=== PATIENT | female | born 1935 | race Caucasian/White ===

== ENCOUNTER 2018-10-13 10:58 | Inpatient (IN) | payer OTHER ==
[2018-10-13] MEDS ORDERED: ACETAMINOPHEN 1000 MG/100 ML VIAL (NON FORMULARY) IVPB ONE (12:33)
[2018-10-13] MEDS ORDERED: ACETAMINOPHEN INJECTION 100 ML IVPB ONE (12:51)
[2018-10-13] MEDS ORDERED: VANCOMYCIN 1 GM in D5W (PRE-DOCKED) 1,000 MG/250 ML IVPB ONE (12:59)
--- NOTE | 2018-10-13 13:03 | PDOC ---
History of Present Illness - General Chief Complaint: Edema Stated Complaint: FALL / LEG PAIN Time Seen by Provider: 10/13/18 12:08 History Source: Patient Exam Limitations: No Limitations - History of Present Illness Initial Comments: 10/13/18 13:00 Pt is an 83yo F with PMH of Afib (on Plavix), Scleroderma, HTN, HLD presenting to ED with complaints of worsening R calf pain. Pt has been in wound care clinic for 6 months. She was started on Bactrim 4 days ago but it has not been helping. She was told to come to the emergency room if pain worsened. Pt says the pain is in the posterior R calf where she has the ulcerations. She endorses weakness. Denies fever, chills, numbness/tingling, cough, sob, chest pain, n/v/d , abdominal pain. She says the pain has gotten to the point where it is difficult for her to stand. Denies recent travel, clotting disorders. PMD: Schirripa Wound: Chafizadeh PMH: see hpi PSH: appendectomy, L 5th toe amputation meds: plavix, metoprolol, pravastatin Allergies: Cipro (erythroderma), PCN (swelling), ASA (swelling) Social: denies Past History - Past Medical History Allergies/Adverse Reactions: Allergies Allergy/AdvReac Type Severity Reaction Status Date / Time aspirin Allergy Swelling Verified 10/13/18 11:03 cephalexin [From Keflex] Allergy Verified 10/13/18 11:03 ciprofloxacin [From Cipro] Allergy Swelling Verified 10/13/18 11:03 ciprofloxacin HCl Allergy Swelling Verified 10/13/18 11:03 [From Cipro] Penicillins Allergy Swelling Verified 10/13/18 11:03 Quinolones Allergy Verified 10/13/18 11:03 Home Medications: Ambulatory Orders Acetaminophen [Tylenol .Regular Strength -] 650 mg PO Q6H PRN #0 tablet Cholecalciferol (Vitamin D3) [Vitamin D3 -] 2,000 unit PO DAILY #0 tab 07/13/13 Clopidogrel Bisulfate [Plavix -] 75 mg PO DAILY #0 tablet 07/13/13 Metoprolol Succinate [Toprol XL -] 25 mg PO DAILY #0 tab.sr.24h 07/13/13 Sodium Chloride Tablet - 1 gm PO DAILY #0 tablet 07/13/13 Valsartan [Diovan] 320 mg PO DAILY #0 tablet 07/13/13 Pravastatin Sodium [Pravachol (Nf)] 40 mg PO HS 05/04/14 Gabapentin 2 cap PO HS 05/18/14 Cardiac Disorders: Yes (A FIB) COPD: No HTN: Yes Hypercholesterolemia: Yes - Surgical History Abdominal Surgery: Yes Appendectomy: Yes Neurologic Surgery: No Orthopedic Surgery: Yes (L. Pinky toe amputation) - Immunization History Immunization Up to Date: Yes - Suicide/Smoking/Psychosocial Hx Smoking Status: No Smoking History: Never smoked Have you smoked in the past 12 months: No Number of Cigarettes Smoked Daily: 0 Hx Alcohol Use: No Drug/Substance Use Hx: No Substance Use Type: Alcohol Hx Substance Use Treatment: No Review of Systems - Review of Systems Constitutional: Yes: Weakness. No: Chills, Fever HEENTM: No: Symptoms Reported Respiratory: No: Cough, Shortness of Breath Cardiac (ROS): No: Chest Pain, Lightheadedness, Palpitations, Syncope ABD/GI: No: Constipated, Diarrhea, Nausea, Vomiting, Abdominal cramping : No: Symptoms Reported Musculoskeletal: Yes: Muscle Pain (R calf pain) Integumentary: Yes: See HPI, Erythema, Lesions. No: Bruising, Pruritus Neurological: No: Headache, Numbness, Tingling *Physical Exam - Vital Signs Last Vital Signs Temp Pulse Resp BP Pulse Ox 97.7 F 16 L 17 127/47 L 99 10/13/18 11:04 10/13/18 11:04 10/13/18 11:04 10/13/18 11:04 10/13/18 11:04 - Physical Exam General Appearance: Yes: Appropriately Dressed, Thin. No: Apparent Distress HEENT: positive: EOMI, JACOB Neck: positive: Trachea midline, Supple. negative: Lymphadenopathy (R), Lymphadenopathy (L) Respiratory/Chest: positive: Lungs Clear, Normal Breath Sounds. negative: Crackles, Rales, Rhonchi, Stridor Cardiovascular: positive: Regular Rhythm, Regular Rate, S1, S2. negative: Edema , JVD, Murmur Vascular Pulses: Carotid (R): 2+, Carotid (L): 2+, Dorsalis-Pedis (R): 1+, Doralis-Pedis (L): 1+ Gastrointestinal/Abdominal: positive: Normal Bowel Sounds, Soft. negative: Tender Musculoskeletal: positive: Other (R calf tendnerness, sclerotic changes in hands ). negative: CVA Tenderness Extremity: positive: Normal Capillary Refill, Normal Range of Motion, Calf Tenderness (R calf tendnerness), Erythema. negative: Coldness, Cyanosis, Pedal Edema, Swelling Integumentary: positive: Normal Color, Dry, Warm, Erythema (R calf) Neurologic: positive: water fitness instructor II-XII NML intact, Fully Oriented, Alert, Normal Mood/ Affect, Normal Response, Motor Strength 5/5 Moderate Sedation - Procedure Monitoring Vital Signs: Procedure Monitoring Vital Signs Temperature 97.7 F 10/13/18 11:04 Pulse Rate 16 L 10/13/18 11:04 Respiratory Rate 17 10/13/18 11:04 Blood Pressure 127/47 L 10/13/18 11:04 O2 Sat by Pulse Oximetry (%) 99 10/13/18 11:04 ED Treatment Course - LABORATORY CBC & Chemistry Diagram: 10/13/18 12:45 10/13/18 12:45 - RADIOLOGY Radiology Studies Ordered: Category Date Time Status DUPLEX VASCUL US-1 LEG [US] Stat Ultrasound 10/13/18 12:33 Ordered - Medications Given in the ED: ED Medications Discontinued Medications Generic Name Dose Route Start Last Admin Trade Name Ethan PRN Reason Stop Dose Admin Acetaminophen 1,000 mg 10/13/18 12:33 10/13/18 12:52 Ofirmev Injection - IVPB 10/13/18 12:34 1,000 mg ONCE ONE Administration Medical Decision Making - Medical Decision Making 10/13/18 13:05 Pt is an 83yo F with PMH of Afib (on Plavix), Scleroderma, HTN, HLD presenting to ED with complaints of worsening R calf pain. Pt has been in wound care clinic for 6 months. She was started on Bactrim 4 days ago but it has not been helping. She was told to come to the emergency room if pain worsened. Pt says the pain is in the posterior R calf where she has the ulcerations. She endorses weakness. Denies fever, chills, numbness/tingling, cough, sob, chest pain, n/v/d , abdominal pain. She says the pain has gotten to the point where it is difficult for her to stand. Denies recent travel, clotting disorders. Vitals: HR 80s, afebrile, wnl PE: R calf erythema, tenderness, mucopurulent drainage. Full ROM Ddx includes but not limited to cellulitis, dvt, allergic reaction, necrotizing fascitis -cbc, cmp, lac, coags, blood cultures, ua, ucx -iv tylenol, vanc -doppler rle, ekg 10/13/18 13:30 cbc and coags wnl. chem pending, doppler pendig EKG- no shalini or depressions 10/13/18 15:32 labs wnl. Negative for DVT. wound culture requested by admitting team. Pt admitted med/surg *DC/Admit/Observation/Transfer Diagnosis at time of Disposition: Cellulitis Qualifiers: Site of cellulitis: extremity Site of cellulitis of extremity: lower extremity Laterality: right Qualified Code(s): L03.115 - Cellulitis of right lower limb - Discharge Dispostion Condition at time of disposition: Good Decision to Admit order: Yes - Referrals - Patient Instructions - Post Discharge Activity
[2018-10-13 13:04] LABS: BASO % 0.2 % (0-2.0); EOS % 0.2 % (0-4.5); HEMATOCRIT 37.8 % (32.4-45.2); HEMOGLOBIN 13.1 GM/dL (10.7-15.3); LYMPH % 10.3 % (8-40); MCHC 34.6 g/dl (32.0-36.0); MEAN CELL VOLUME 92.4 fl (80-96); MEAN PLT VOLUME 8.7 fl (7.5-11.1); MONO % 6.9 % (3.8-10.2); NEUT % 82.4 % (42.8-82.8); PLATELET COUNT 297 K/MM3 (134-434); RBC 4.09 M/mm3 (3.60-5.2); RDW 14.6 % (11.6-15.6); WHITE BLOOD COUNT 9.2 K/mm3 (4.0-10.0)
[2018-10-13 13:24] LABS: INR 1.07 (0.83-1.09); PROTHROMBIN TIME (PATIENT) 12.6 SEC (9.7-13.0)
[2018-10-13 13:27] LABS: ACTIVATED PTT 23.7 SECONDS (25.2-36.5)
[2018-10-13 13:37] LABS: ALBUMIN 3.3 g/dl (3.4-5.0); ALK PHOS 58 U/L (45-117); ANION GAP 6 MMOL/L (8-16); BILIRUBIN,TOTAL 0.4 mg/dL (0.2-1); BLOOD UREA NITROGEN 21 mg/dL (7-18); CALCIUM 9.2 mg/dL (8.5-10.1); CHLORIDE 98 mmol/L (98-107); CO2 28 mmol/L (21-32); CREATININE 1.1 mg/dL (0.55-1.3); GLUCOSE,RANDOM 90 mg/dL (74-106); POTASSIUM 4.4 mmol/L (3.5-5.1); SGOT/AST 13 U/L (15-37); SGPT/ALT 12 U/L (13-61); SODIUM 132 mmol/L (136-145)
[2018-10-13] MEDS ORDERED: VANCOMYCIN 1 GRAM (PRE-DOCKED) 1,000 MG/250 ML BAG IVPB ONE (13:43)
--- NOTE | 2018-10-13 14:16 | PDOC ---
Attending Attestation - Resident Resident Name: Felicia Greenwood - ED Attending Attestation I have performed the following: I have examined & evaluated the patient, The case was reviewed & discussed with the resident, I agree w/resident's findings & plan, Exceptions are as noted - HPI HPI: 10/13/18 14:10 The patient is a 83 year old female, with a significant past medical history of HTN, Hypercholesterolemia, Atrial Fibrillation (on Plavix), Scleroderma, and Raynaud's Syndrome, who presents to the emergency department with, R calf wounds with pain. Patient has been going to wound care with Dr. Hernández/ over the past 6 months and was prescribed Bactrim 4 days ago ( compliant with antibiotics) with minimal improvement and persistent pain. Patient notes a similar episode in 2012 a which time she was admitted for IV antibiotics. Patient was advised by her doctors to report to the ED if her symptoms worsened or persisted prompting her arrival to the ED. She denies recent fevers, chills, headache or dizziness. She denies recent nausea, vomit, diarrhea or constipation. She denies recent dysuria, frequency, urgency or hematuria. She denies recent chest pain or shortness of breath. Allergies: Aspirin, cephalexin, ciprofloxacin, penicillins, quinolones. Past surgical history: appendectomy. Social history: Nonsmoker. Denies EtOH use and recreational drug use. Primary Care Physician: Dr. Girard Wound Care: Dr. Hernández Interior Decorator Paperhanging: - Physicial Exam PE: 10/13/18 14:10 GENERAL: Awake, alert, and fully oriented, in no acute distress EYES: PERRLA, EOMI, sclera anicteric, conjunctiva clear ENT: Oropharynx clear without exudates. Moist mucosa NECK: Normal ROM, supple, no lymphadenopathy, JVD, or masses LUNGS: Breath sounds equal, clear to auscultation bilaterally. No wheezes, and no crackles HEART: Regular rate and rhythm, normal S1 and S2, no murmurs, rubs or gallops ABDOMEN: Soft, nontender, normoactive bowel sounds. No guarding, no rebound. No masses EXTREMITIES: Normal range of motion, no edema. +tenderness to light touch of lateral R calf NEUROLOGICAL: Normal speech, cranial nerves intact, equal strength and sensation b/l SKIN: +Large patch of erythema to the right lateral calf, mild induration with multiple superficial ulcers with mucopurulent discharge. - Medical Decision Making 10/13/18 14:16 83yo F presents to the ED for admission for cellulitis after failing outpt bactim abx. Pt has required Vancomycin in the past for cellulitis which we will order today. Plan for labs, admission.
--- NOTE | 2018-10-13 16:00 | PN ---
Teaching Attending Note Name of Resident: Zulma Sánchez ATTENDING PHYSICIAN STATEMENT I saw and evaluated the patient. I reviewed the resident's note and discussed the case with the resident. I agree with the resident's findings and plan as documented with exceptions below. PCP: Dr. Girard Pole Incisor Operator: Dr. Serrato SUBJECTIVE: 83 yof with PMhx of Scleroderma, Atrial fibrillation, not on AC but on plavix, raynaud's phenomenon, Chronic hyponatremia/SIADH, HTN, HLD, OA, recurrent stasis ulcer RLE since 02/2018 being followed at wound care (With Dr. Hernández and Dr. Austin), MRI has been having progressive right calf pain/redness, difficulty ambulating, was placed on bactrim 4 days ago but given worsening symptoms, came to the ED.Denies any fevers, chills. Positive yellowish foul swelling discharge from the calf wound. 12 point ROS done neg except above. OBJECTIVE: Vital Signs Period Temp Pulse Resp BP Sys/Stewart Pulse Ox Last 24 Hr 97.7 F-98.1 F 16-66 17-18 127-161/47-73 99-99 Intake & Output 10/10/18 10/11/18 10/12/18 10/13/18 23:59 23:59 23:59 23:59 Weight 120 lb GENERAL: Awake, alert, and fully oriented, in no acute distress. HEAD: Normal with no signs of trauma. EYES: Pupils equal, round and reactive to light, extraocular movements intact, sclera anicteric, conjunctiva clear. No lid lag. EARS, NOSE, THROAT: Ears normal, nares patent, oropharynx clear without exudates. Moist mucous membranes. NECK: Normal range of motion, supple, no JVD or masses LUNGS: Breath sounds equal, clear to auscultation bilaterally. No wheezes, and no crackles. No accessory muscle use. HEART: Regular rate and rhythm, normal S1 and S2 ABDOMEN: Soft, nontender, not distended, normoactive bowel sounds, no guarding, no rebound, no masses. MUSCULOSKELETAL: no spinal tenderness, bilateral hand arthritic deformities UPPER EXTREMITIES: 2+ pulses, warm, well-perfused. No cyanosis. No clubbing. No peripheral edema. LOWER EXTREMITIES: palpable DP pulse, faint, right calf, inudurated erythematous area extending from mid calf to above ankle, scattered indurated area, opening with purulent material expressed, tender on palpation and when attempting to express pus NEUROLOGICAL: AAOx3, facial symmetry, Cranial nerves II-XII intact. Normal speech. Gait no observed PSYCHIATRIC: Cooperative. Good eye contact. Appropriate mood and affect. SKIN: Warm, dry, normal turgor, no rashes or lesions noted, normal capillary refill. Home Medications Medication Instructions Recorded Acetaminophen [Tylenol .Regular 650 mg PO Q6H PRN #0 tablet 07/13/13 Strength -] Cholecalciferol (Vitamin D3) 2,000 unit PO DAILY #0 tab 07/13/13 [Vitamin D3 -] Clopidogrel Bisulfate [Plavix -] 75 mg PO DAILY #0 tablet 07/13/13 Metoprolol Succinate [Toprol XL -] 25 mg PO DAILY #0 tab.sr.24h 07/13/13 Sodium Chloride Tablet - 1 gm PO DAILY #0 tablet 07/13/13 Valsartan [Diovan] 320 mg PO DAILY #0 tablet 07/13/13 Pravastatin Sodium [Pravachol (Nf)] 40 mg PO HS 05/04/14 Gabapentin 2 cap PO HS 05/18/14 Active Medications Acetaminophen (Tylenol -) 650 mg PO Q6H PRN PRN Reason: FEVER Gabapentin (Neurontin -) 100 mg PO HS [facility] Metoprolol Succinate (Toprol Xl -) 25 mg PO DAILY [facility] Sodium Chloride (Sodium Chloride Tablet -) 1 gm PO DAILY [facility] Valsartan (Diovan -) 320 mg PO DAILY [facility] Laboratory Results - last 24 hr 10/13/18 10/13/18 10/13/18 12:45 12:45 12:45 WBC 9.2 RBC 4.09 Hgb 13.1 Hct 37.8 D MCV 92.4 MCH 32.0 MCHC 34.6 RDW 14.6 D Plt Count 297 MPV 8.7 Absolute Neuts (auto) 7.6 Neutrophils % 82.4 Lymphocytes % 10.3 Monocytes % 6.9 Eosinophils % 0.2 Basophils % 0.2 Nucleated RBC % 0 PT with INR 12.60 INR 1.07 PTT (Actin FS) 23.7 L Sodium 132 L Potassium 4.4 Chloride 98 Carbon Dioxide 28 Anion Gap 6 L BUN 21 H Creatinine 1.1 Creat Clearance w eGFR 47.32 Random Glucose 90 Lactic Acid Calcium 9.2 Total Bilirubin 0.4 AST 13 L ALT 12 L Alkaline Phosphatase 58 Total Protein 8.0 Albumin 3.3 L 10/13/18 12:45 WBC RBC Hgb Hct MCV MCH MCHC RDW Plt Count MPV Absolute Neuts (auto) Neutrophils % Lymphocytes % Monocytes % Eosinophils % Basophils % Nucleated RBC % PT with INR INR PTT (Actin FS) Sodium Potassium Chloride Carbon Dioxide Anion Gap BUN Creatinine Creat Clearance w eGFR Random Glucose Lactic Acid 1.4 Calcium Total Bilirubin AST ALT Alkaline Phosphatase Total Protein Albumin RLE Duplex results reviewed ASSESSMENT AND PLAN: 83 yof with PMhx of Scleroderma, Atrial fibrillation, not on AC but on plavix, raynaud's phenomenon, Chronic hyponatremia/SIADH, HTN, HLD, OA, recurrent stasis ulcer RLE since 02/2018 being followed at wound care (With Dr. Hernández and Dr. Austin) admitted with RLE wound cellulitis, suspected abscess -RLE wound cellulitis, suspected abscess, recurrent stasis ulcer RLE -MRI RLE with 5th toe OM (?Unclear management) -Scleroderma -Atrial fibrillation not on AC -Raynaud's phenomenon -Chronic hyponatremia/SIADH -HTN -HLD -OA Plan: Wound care. Dr. smith's consult, may need I&D. CT LE. Multiple allergies. Vancomycin. ID input Dr. Stoll. Blood cx sent. Hold plavix for now in case needs surgical drainage. Continue toprol/norvasc/NaCL tablets/statin. DVTPPX heparin Dispo pending clinical improvement. Needs IV antibiotics and possible surgical drainage. Plan discussed with patient, Dr. smith in detail, all questions answered. Total admit time 60 min.
[2018-10-13] MEDS ORDERED: ACETAMINOPHEN 325 MG TABLET (FP) PO PRN (16:09)
--- NOTE | 2018-10-13 16:26 | HP ---
CHIEF COMPLAINT: RLE pain PCP: Dr. Ramirez HISTORY OF PRESENT ILLNESS: This is a 83 year old female with a history of scleroderma, raynauds, HTN, atrial fibrillation, SIADH, hx of LE osteomyelitis, who has been seeing wound care for RLE cellulitis, on day #4 of bactrim, who presents with worsening RLE severe pain, swelling, purulent discharge. Denies fever, chills. ER course was notable for: IV vancomycin give; blood/wound cultures taken Recent Travel: PAST MEDICAL HISTORY: scleroderma, raynauds, HTN, atrial fibrillation, hx of LE osteomyelitis,RLE cellulitis, SIADH PAST SURGICAL HISTORY: appendectomy Social History: Smoking:no Alcohol:occasional Drugs: no Family History: Allergies aspirin Allergy (Verified 10/13/18 11:03) Swelling cephalexin [From Keflex] Allergy (Verified 10/13/18 11:03) ciprofloxacin [From Cipro] Allergy (Verified 10/13/18 11:03) Swelling ciprofloxacin HCl [From Cipro] Allergy (Verified 10/13/18 11:03) Swelling Penicillins Allergy (Verified 10/13/18 11:03) Swelling Quinolones Allergy (Verified 10/13/18 11:03) HOME MEDICATIONS: Home Medications Medication Instructions Recorded Acetaminophen [Tylenol .Regular 650 mg PO Q6H PRN #0 tablet 07/13/13 Strength -] Cholecalciferol (Vitamin D3) 2,000 unit PO DAILY #0 tab 07/13/13 [Vitamin D3 -] Clopidogrel Bisulfate [Plavix -] 75 mg PO DAILY #0 tablet 07/13/13 Metoprolol Succinate [Toprol XL -] 25 mg PO DAILY #0 tab.sr.24h 07/13/13 Sodium Chloride Tablet - 1 gm PO DAILY #0 tablet 07/13/13 Valsartan [Diovan] 320 mg PO DAILY #0 tablet 07/13/13 Pravastatin Sodium [Pravachol (Nf)] 40 mg PO HS 05/04/14 Gabapentin 2 cap PO HS 05/18/14 REVIEW OF SYSTEMS CONSTITUTIONAL: Absent: fever, chills, diaphoresis, generalized weakness, malaise, loss of appetite, weight change HEENT: Absent: rhinorrhea, nasal congestion, throat pain, throat swelling, difficulty swallowing, mouth swelling, ear pain, eye pain, visual changes CARDIOVASCULAR: Absent: chest pain, syncope, palpitations, irregular heart rate, lightheadedness , peripheral edema RESPIRATORY: Absent: cough, shortness of breath, dyspnea with exertion, orthopnea, wheezing, stridor, hemoptysis GASTROINTESTINAL: Absent: abdominal pain, abdominal distension, nausea, vomiting, diarrhea, constipation, melena, hematochezia GENITOURINARY: Absent: dysuria, frequency, urgency, hesitancy, hematuria, flank pain, genital pain MUSCULOSKELETAL: Absent: myalgia, arthralgia, joint swelling, back pain, neck pain SKIN: Positive: RLE cellulits Absent: rash, itching, pallor HEMATOLOGIC/IMMUNOLOGIC: Absent: easy bleeding, easy bruising, lymphadenopathy, frequent infections ENDOCRINE: Absent: unexplained weight gain, unexplained weight loss, heat intolerance, cold intolerance NEUROLOGIC: Absent: headache, focal weakness or paresthesias, dizziness, unsteady gait, seizure, mental status changes, bladder or bowel incontinence PSYCHIATRIC: Absent: anxiety, depression, suicidal or homicidal ideation, hallucinations. PHYSICAL EXAMINATION Vital Signs - 24 hr 10/13/18 10/13/18 11:04 16:08 Temperature 97.7 F 98.1 F Pulse Rate 16 L Pulse Rate [ 66 Left] Respiratory 17 18 Rate Blood Pressure 127/47 L Blood Pressure 161/73 [Left Arm] O2 Sat by Pulse 99 99 Oximetry (%) GENERAL: Awake, alert, and fully oriented, in no acute distress. HEAD: Normal with no signs of trauma. EYES: Pupils equal, round and reactive to light, extraocular movements intact, sclera anicteric, conjunctiva clear. No lid lag. FACE with tight skin NECK: Normal range of motion, supple without lymphadenopathy, right JVD vs effect if TR? LUNGS: Breath sounds equal, clear to auscultation bilaterally. No wheezes, and no crackles. No accessory muscle use. HEART: Regular rate and irregular rhythm, normal S1 and S2 without murmur, rub or gallop. ABDOMEN: Soft, nontender, not distended, normoactive bowel sounds, no guarding, no rebound, no masses. No hepatomegaly or splenomegaly. MUSCULOSKELETAL: Normal range of motion at all joints. No bony deformities or tenderness. No CVA tenderness. UPPER EXTREMITIES: 2+ pulses, warm, well-perfused. No cyanosis. No clubbing. No peripheral edema. LOWER EXTREMITIES: 2+ pulses, warm, well-perfused. No calf tenderness. No peripheral edema. RLE cellulitis ; swelling; very tender; purulent discharge from tiny open area NEUROLOGICAL: Cranial nerves II-XII intact. Normal speech. Normal gait. PSYCHIATRIC: Cooperative. Good eye contact. Appropriate mood and affect. SKIN: Warm, dry, normal turgor, no rashes or lesions noted, normal capillary refill. Laboratory Results - last 24 hr 10/13/18 10/13/18 10/13/18 12:45 12:45 12:45 WBC 9.2 RBC 4.09 Hgb 13.1 Hct 37.8 D MCV 92.4 MCH 32.0 MCHC 34.6 RDW 14.6 D Plt Count 297 MPV 8.7 Absolute Neuts (auto) 7.6 Neutrophils % 82.4 Lymphocytes % 10.3 Monocytes % 6.9 Eosinophils % 0.2 Basophils % 0.2 Nucleated RBC % 0 PT with INR 12.60 INR 1.07 PTT (Actin FS) 23.7 L Sodium 132 L Potassium 4.4 Chloride 98 Carbon Dioxide 28 Anion Gap 6 L BUN 21 H Creatinine 1.1 Creat Clearance w eGFR 47.32 Random Glucose 90 Lactic Acid Calcium 9.2 Total Bilirubin 0.4 AST 13 L ALT 12 L Alkaline Phosphatase 58 Total Protein 8.0 Albumin 3.3 L 10/13/18 12:45 WBC RBC Hgb Hct MCV MCH MCHC RDW Plt Count MPV Absolute Neuts (auto) Neutrophils % Lymphocytes % Monocytes % Eosinophils % Basophils % Nucleated RBC % PT with INR INR PTT (Actin FS) Sodium Potassium Chloride Carbon Dioxide Anion Gap BUN Creatinine Creat Clearance w eGFR Random Glucose Lactic Acid 1.4 Calcium Total Bilirubin AST ALT Alkaline Phosphatase Total Protein Albumin ASSESSMENT/PLAN: This is a 83 year old female with a history of scleroderma, SIADH, raynauds, osteomyelitis, presents with non healing cellulitis that is now purulent and very tender. #RLE cellulitis: -patient with multiple allergies; -f/u wound cx, blood cx. ; -started on IV vancomycin; -previous cultures positive for proteus; actinobac; staph -esr, crp -ct scan -vascular consult for drain -paula ID recs; #hx of SIADH: -cont salt tabs -monitor fluid intake #atrial fibrillation: -rate controlled with toprol -not on AC -although she is on plavix; will hold for now in case of I and D #htn: controlled -cont losartan Diet: npo after midnight in case of procedure VTE:scd on LLE only Disposition: med surg Visit type - Emergency Visit Emergency Visit: Yes ED Registration Date: 10/13/18 Care time: The patient presented to the Emergency Department on the above date and was hospitalized for further evaluation of their emergent condition. - New Patient This patient is new to me today: Yes Date on this admission: 10/13/18 - Critical Care Critical Care patient: No
--- NOTE | 2018-10-13 16:52 | PN ---
Progress Note (short form) - Note Progress Note: Surgery Asked to evaluate patient with draining right calf wound and increased pain. Patient states she is being managed by the wound care clinic (Dr Vasquez) and started bacrtim 4 days ago but experienced increasing pain with purulant d/c and presented to the ED. She denies any other symptoms associated with onset including Fever, chills, N/V/D, CP, SOB. Vital Signs Temp 98.1 F 10/13/18 16:08 Pulse 66 10/13/18 16:08 Resp 18 10/13/18 16:08 BP 161/73 10/13/18 16:08 Pulse Ox 99 10/13/18 16:08 Intake & Output 10/12/18 10/13/18 10/13/18 23:59 11:59 23:59 Weight 120 lb Other: Height 5 ft 4 in Body Mass Index (BMI) 20.5 Weight Measurement Method Est/Stated by Patient CBC, BMP 10/13/18 12:45 10/13/18 12:45 PE: A&Ox3, NAD Unlabored resp on RA right calf with chronic skin changes, + cellulitis ; swelling; very tender to palpation; purulent discharge from small open area <[id number], no evidence of tracking Doppler: negative for DVT Imp: Right calf wound with increased pain question of collection. Plan: 1) agree with right calf CT to r/o collection 2) Iv abx per ID 3) vascular team to follow Evaluation and plan discussed with Dr Mejia
[2018-10-13] MEDS: GABAPENTIN 100 MG CAPSULE (FP) PO SCH (21:44)
--- NOTE | 2018-10-13 22:46 | EKG ---
Test Reason : Blood Pressure : / mmHG Vent. Rate : 072 BPM Atrial Rate : 072 BPM P-R Int : 244 ms QRS Dur : 092 ms QT Int : 424 ms P-R-T Axes : 072 -41 055 degrees QTc Int : 464 ms SINUS RHYTHM WITH 1ST DEGREE A-V BLOCK LEFT AXIS DEVIATION ABNORMAL ECG WHEN COMPARED WITH ECG OF 08-JUL-2013 08:27, ATRIAL PREMATURE COMPLEX IS NOT SEEN Confirmed by JEREMI YANG, ADEEL ([id number]) on 10/13/2018 10:45:35 PM Referred By: Confirmed By:ADEEL BLOOD MD
--- NOTE | 2018-10-14 06:48 | PN ---
Progress Note (short form) - Note Progress Note: Doing well. LE CT scan results official --> no air/gas, no fluid collection or abscess identified. No leukocytosis. Afebrile. Duplex neg for DVT. No further surgical intervention. Cont care as per medicine for cellulitis. Recommend warm compresses with LE elevation Reconsult prn. Above discussed with my attending. On behalf of Dr. Mejia, thank you for the opportunity to participate in your patient's care.
[2018-10-14 07:25] LABS: ANION GAP 6 MMOL/L (8-16); BASO % 0.2 % (0-2.0); BLOOD UREA NITROGEN 16 mg/dL (7-18); CALCIUM 8.5 mg/dL (8.5-10.1); CHLORIDE 100 mmol/L (98-107); CO2 28 mmol/L (21-32); EOS % 0.5 % (0-4.5); GLUCOSE,RANDOM 97 mg/dL (74-106); HEMATOCRIT 35.4 % (32.4-45.2); HEMOGLOBIN 12.1 GM/dL (10.7-15.3); LYMPH % 12.5 % (8-40); MAGNESIUM 1.8 mg/dL (1.8-2.4); MCH 31.7 pg (25.7-33.7); MCHC 34.2 g/dl (32.0-36.0); MEAN CELL VOLUME 92.5 fl (80-96); MEAN PLT VOLUME 8.8 fl (7.5-11.1); NEUT % 77.8 % (42.8-82.8); PHOSPHOROUS 3.6 mg/dL (2.5-4.9); PLATELET COUNT 288 K/MM3 (134-434); POTASSIUM 4.2 mmol/L (3.5-5.1); RBC 3.82 M/mm3 (3.60-5.2); RDW 14.3 % (11.6-15.6); SODIUM 134 mmol/L (136-145); WHITE BLOOD COUNT 9.3 K/mm3 (4.0-10.0)
[2018-10-14 07:46] LABS: INR 1.05 (0.83-1.09); PROTHROMBIN TIME (PATIENT) 12.4 SEC (9.7-13.0)
[2018-10-14] MEDS ORDERED: VANCOMYCIN 1 GRAM (PRE-DOCKED) 1,000 MG/250 ML BAG IVPB ONE (08:00)
[2018-10-14] MEDS ORDERED: PT OWN MED DRAWER 7, Y5N ONE ×3 (09:13→14:24)
[2018-10-14] MEDS: amLODIPine BESYLATE 10 MG TABLET (FP) PO SCH (09:15)
[2018-10-14] MEDS: VALSARTAN 160 MG TABLET (UD) PO SCH (09:15)
[2018-10-14] MEDS ORDERED: metoPROLOL SUCCINATE 25 MG TAB.SR.24H (FP) PO SCH (10:00)
[2018-10-14] MEDS: SODIUM CHLORIDE 1 GM TABLET PO SCH (10:26)
--- NOTE | 2018-10-14 12:08 | PN ---
Physical Exam: SUBJECTIVE: Patient seen and examined; patient states less pain. afebrile; OBJECTIVE: Vital Signs Period Temp Pulse Resp BP Sys/Stewart Pulse Ox Last 24 Hr 97.7 F-98.1 F 66-75 18-18 126-161/56-73 97-99 GENERAL: The patient is awake, alert, and fully oriented, in no acute distress. LUNGS: Breath sounds equal, clear to auscultation bilaterally, no wheezes, no crackles, no accessory muscle use. HEART: Regular rate and rhythm, S1, S2 without murmur, rub or gallop. ABDOMEN: Soft, nontender, nondistended, normoactive bowel sounds, no guarding, no rebound, no hepatosplenomegaly, no masses. EXTREMITIES: 2+ pulses, warm, well-perfused, RLE calf with cellulits; small purulent drainage; tender; swelling; left heel redness; no breaks in skin NEUROLOGICAL: Cranial nerves II through XII grossly intact. Normal speech, gait not observed. Laboratory Results - last 24 hr 10/13/18 10/13/18 10/13/18 12:45 12:45 12:45 WBC 9.2 RBC 4.09 Hgb 13.1 Hct 37.8 D MCV 92.4 MCH 32.0 MCHC 34.6 RDW 14.6 D Plt Count 297 MPV 8.7 Absolute Neuts (auto) 7.6 Neutrophils % 82.4 Lymphocytes % 10.3 Monocytes % 6.9 Eosinophils % 0.2 Basophils % 0.2 Nucleated RBC % 0 ESR PT with INR 12.60 INR 1.07 PTT (Actin FS) 23.7 L Sodium 132 L Potassium 4.4 Chloride 98 Carbon Dioxide 28 Anion Gap 6 L BUN 21 H Creatinine 1.1 Creat Clearance w eGFR 47.32 Random Glucose 90 Lactic Acid Calcium 9.2 Phosphorus Magnesium Total Bilirubin 0.4 AST 13 L ALT 12 L Alkaline Phosphatase 58 C-Reactive Protein Total Protein 8.0 Albumin 3.3 L 10/13/18 10/14/18 10/14/18 12:45 06:00 06:00 WBC 9.3 RBC 3.82 Hgb 12.1 Hct 35.4 MCV 92.5 MCH 31.7 MCHC 34.2 RDW 14.3 Plt Count 288 MPV 8.8 Absolute Neuts (auto) 7.3 Neutrophils % 77.8 Lymphocytes % 12.5 D Monocytes % 9.0 Eosinophils % 0.5 D Basophils % 0.2 Nucleated RBC % 0 ESR PT with INR 12.40 INR 1.05 PTT (Actin FS) Sodium Potassium Chloride Carbon Dioxide Anion Gap BUN Creatinine Creat Clearance w eGFR Random Glucose Lactic Acid 1.4 Calcium Phosphorus Magnesium Total Bilirubin AST ALT Alkaline Phosphatase C-Reactive Protein Total Protein Albumin 10/14/18 10/14/18 06:00 06:00 WBC RBC Hgb Hct MCV MCH MCHC RDW Plt Count MPV Absolute Neuts (auto) Neutrophils % Lymphocytes % Monocytes % Eosinophils % Basophils % Nucleated RBC % ESR 67 H PT with INR INR PTT (Actin FS) Sodium 134 L Potassium 4.2 Chloride 100 Carbon Dioxide 28 Anion Gap 6 L BUN 16 Creatinine 1.0 Creat Clearance w eGFR 52.82 Random Glucose 97 Lactic Acid Calcium 8.5 Phosphorus 3.6 Magnesium 1.8 Total Bilirubin AST ALT Alkaline Phosphatase C-Reactive Protein 4.6 H Total Protein Albumin Active Medications Generic Name Dose Route Start Last Admin Trade Name Freq PRN Reason Stop Dose Admin Acetaminophen 650 mg 10/13/18 16:09 Tylenol - PO Q6H PRN FEVER Amlodipine Besylate 10 mg 10/14/18 10:00 10/14/18 09:15 Norvasc - PO 10 mg DAILY ALANNA Administration Gabapentin 100 mg 10/13/18 22:00 10/13/18 21:44 Neurontin - PO 100 mg HS ALANNA Administration Metoprolol Succinate 50 mg 10/14/18 10:00 10/14/18 09:15 Toprol Xl - PO 50 mg DAILY ALANNA Administration Sodium Chloride 1 gm 10/14/18 10:00 10/14/18 10:26 Sodium Chloride Tablet - PO 1 gm DAILY ALANNA Administration Valsartan 320 mg 10/14/18 10:00 10/14/18 09:15 Diovan - PO 320 mg DAILY ALANNA Administration ASSESSMENT/PLAN: This is a 83 year old female with a history of scleroderma, SIADH, raynauds, osteomyelitis, presents with non healing cellulitis that is now purulent and very tender. #RLE cellulitis: -patient with multiple allergies; -f/u wound cx, blood cx. ; -started on IV vancomycin; -previous cultures positive for proteus; actinobac; staph -esr, crp; elevated -ct scan; negative for abscess or fluid collection -paula ID recs; #hx of SIADH with chronic hyponatremia -cont salt tabs -monitor fluid intake #atrial fibrillation: -rate controlled with toprol -not on AC -although she is on plavix; will hold for now in case of I and D #htn: controlled -cont losartan Diet:regular VTE:heparin sq Disposition: med surg Visit type - Emergency Visit Emergency Visit: Yes ED Registration Date: 10/13/18 Care time: The patient presented to the Emergency Department on the above date and was hospitalized for further evaluation of their emergent condition. - New Patient This patient is new to me today: No - Critical Care Critical Care patient: No
[2018-10-14] MEDS: CLOPIDOGREL BISULFATE 75 MG TABLET (FP) PO SCH (12:17)
--- NOTE | 2018-10-14 13:13 | PN ---
Progress Note (short form) - Note Progress Note: ID CONSULT DICTATED CELLULITIS/ SOFT TISSUE ABSCESS R LE PCN ALLERGY AWAIT C/S EMPIRIC VANCOMYCIN/ AZTREONAM
[2018-10-14] MEDS: VANCOMYCIN 1 GRAM (PRE-DOCKED) 1,000 MG/250 ML BAG IVPB SCH (13:41)
[2018-10-14] MEDS: HEPARIN NA (PORCINE) 5,000 UNITS/ML 1ML VIAL SQ SCH ×2 (14:22→22:14)
[2018-10-14] MEDS: AZTREONAM 1 GM in DEXTROSE 5%-WATER - 50 ML IVPB SCH (14:25)
--- NOTE | 2018-10-14 16:53 | PN ---
Teaching Attending Note Name of Resident: Zulma Sánchez ATTENDING PHYSICIAN STATEMENT I saw and evaluated the patient. I reviewed the resident's note and discussed the case with the resident. I agree with the resident's findings and plan as documented with exceptions below. SUBJECTIVE: Patient seen and examined. Right calf pain and symptoms overall unchanged. OBJECTIVE: Vital Signs Period Temp Pulse Resp BP Sys/Stewart Pulse Ox Last 24 Hr 97.7 F-98.4 F 70-86 18-19 123-138/54-69 97-97 Intake & Output 10/11/18 10/12/18 10/13/18 10/14/18 23:59 23:59 23:59 23:59 Weight 110 lb 9.6 oz General: sitting in bed in no acute distress Chest: CTAB, no rales or wheezing Abdomen:Soft, NT, ND Extremities: right posterior calf with induration but improved erythema and tenderness, minimal sanguinous drainage from the opening, improved exam Home Medications Medication Instructions Recorded Amlodipine Besylate [Norvasc -] 10 mg PO DAILY 10/13/18 Cholecalciferol (Vitamin D3) 1,000 unit PO DAILY 10/13/18 [Vitamin D3] Clopidogrel Bisulfate [Plavix] 75 mg PO DAILY 10/13/18 Metoprolol Succinate [Toprol Xl] 50 mg PO DAILY 10/13/18 Mupirocin Ointment [Bactroban 2% 1 applic TP DAILY 10/13/18 Ointment -] Pravastatin Sodium [Pravachol (Nf)] 80 mg PO HS 10/13/18 Sodium Chloride Tablet - 1 gm PO DAILY 10/13/18 Sulfamethoxazole/Trimethoprim 1 tab PO BID 10/13/18 [Bactrim Ds -] Valsartan 320 mg PO DAILY 10/13/18 Active Medications Acetaminophen (Tylenol -) 650 mg PO Q6H PRN PRN Reason: FEVER Amlodipine Besylate (Norvasc -) 10 mg PO DAILY [facility] Last Admin: 10/14/18 09:15 Dose: 10 mg Clopidogrel Bisulfate (Plavix -) 75 mg PO DAILY [facility] Last Admin: 10/14/18 12:17 Dose: 75 mg Gabapentin (Neurontin -) 100 mg PO HS [facility] Last Admin: 10/13/18 21:44 Dose: 100 mg Heparin Sodium (Porcine) (Heparin -) 5,000 unit SQ TID [facility] Last Admin: 10/14/18 14:22 Dose: 5,000 unit Vancomycin HCl (Vancomycin (Pre-Docked)) 1,000 mg in 250 mls @ 166.667 mls/hr IVPB Q24H ALANNA; Protocol Last Admin: 10/14/18 13:41 Dose: Not Given Aztreonam 1 gm/ Dextrose 50 mls @ 100 mls/hr IVPB Q12H ALANNA; Protocol Last Admin: 10/14/18 14:25 Dose: 100 mls/hr Metoprolol Succinate (Toprol Xl -) 50 mg PO DAILY ALANNA Last Admin: 10/14/18 09:15 Dose: 50 mg Sodium Chloride (Sodium Chloride Tablet -) 1 gm PO DAILY ALANNA Last Admin: 10/14/18 10:26 Dose: 1 gm Valsartan (Diovan -) 320 mg PO DAILY [facility] Last Admin: 10/14/18 09:15 Dose: 320 mg Laboratory Results - last 24 hr 10/14/18 10/14/18 10/14/18 06:00 06:00 06:00 WBC 9.3 RBC 3.82 Hgb 12.1 Hct 35.4 MCV 92.5 MCH 31.7 MCHC 34.2 RDW 14.3 Plt Count 288 MPV 8.8 Absolute Neuts (auto) 7.3 Neutrophils % 77.8 Lymphocytes % 12.5 D Monocytes % 9.0 Eosinophils % 0.5 D Basophils % 0.2 Nucleated RBC % 0 ESR PT with INR 12.40 INR 1.05 Sodium 134 L Potassium 4.2 Chloride 100 Carbon Dioxide 28 Anion Gap 6 L BUN 16 Creatinine 1.0 Creat Clearance w eGFR 52.82 Random Glucose 97 Calcium 8.5 Phosphorus 3.6 Magnesium 1.8 C-Reactive Protein 4.6 H 10/14/18 06:00 WBC RBC Hgb Hct MCV MCH MCHC RDW Plt Count MPV Absolute Neuts (auto) Neutrophils % Lymphocytes % Monocytes % Eosinophils % Basophils % Nucleated RBC % ESR 67 H PT with INR INR Sodium Potassium Chloride Carbon Dioxide Anion Gap BUN Creatinine Creat Clearance w eGFR Random Glucose Calcium Phosphorus Magnesium C-Reactive Protein Microbiology 10/13/18 12:45 Blood - Peripheral Venous Blood Culture - Preliminary NO GROWTH OBTAINED AFTER 24 HOURS, INCUBATION TO CONTINUE FOR 4 DAYS. 10/13/18 13:00 Blood - Peripheral Venous Blood Culture - Preliminary NO GROWTH OBTAINED AFTER 24 HOURS, INCUBATION TO CONTINUE FOR 4 DAYS. 10/13/18 14:45 Leg - Right Lower Wound Culture - Preliminary Proteus Species Pending Organism ASSESSMENT AND PLAN: 83 yof with PMhx of Scleroderma, Atrial fibrillation, not on AC but on plavix, raynaud's phenomenon, Chronic hyponatremia/SIADH, HTN, HLD, OA, recurrent stasis ulcer RLE since 02/2018 being followed at wound care (With Dr. Hernández and Dr. Austin) admitted with RLE wound cellulitis, suspected abscess -RLE wound cellulitis, suspected abscess, recurrent stasis ulcer RLE -MRI RLE with 5th toe OM (?Unclear management) -Scleroderma -Atrial fibrillation not on AC -Raynaud's phenomenon -Chronic hyponatremia/SIADH -HTN -HLD -OA Plan: Surgery/ID input noted. Wound care with minimal improvement though suspect will need I&D. Warm compresses. CT LE results noted. Aztreonam/vancomycin day 1. Blood/wound cx noted. Resume plavix Continue toprol/norvasc/NaCL tablets/statin. DVTPPX heparin Dispo pending clinical improvement. Needs IV antibiotics and possible surgical drainage. Plan discussed with patient, and nursing in detail, all questions answered.
[2018-10-14 17:33] LABS: URINE APPEARANCE CLEAR; URINE BILIRUBIN NEGATIVE (<2.0 mg/dL); URINE COLOR LTYELLOW; URINE GLUCOSE (UA) NEGATIVE (NEGATIVE); URINE KETONE NEGATIVE (NEGATIVE); URINE LEUK ESTERASE NEGATIVE (NEGATIVE); URINE NITRITE NEGATIVE (NEGATIVE); URINE PROTEIN NEGATIVE (NEGATIVE); URINE UROBILINOGEN NEGATIVE mg/dL (0.2-1.0)
[2018-10-14] MEDS ORDERED: INSULIN (LEVEMIR) 100 UNITS/ML UNITS SQ ONE (20:40)
[2018-10-14] MEDS ORDERED: INSULIN (NOVOLOG) ASPART 100 UNITS/ML 10ML VIAL ONE (20:40)
[2018-10-14] MEDS: GABAPENTIN 100 MG CAPSULE (FP) PO SCH (22:14)
[2018-10-15] MEDS: AZTREONAM 1 GM in DEXTROSE 5%-WATER - 50 ML IVPB SCH ×2 (01:06→12:59)
[2018-10-15] MEDS: HEPARIN NA (PORCINE) 5,000 UNITS/ML 1ML VIAL SQ SCH ×3 (06:23→21:53)
[2018-10-15 07:14] LABS: BASO % 0.3 % (0-2.0); EOS % 0.8 % (0-4.5); HEMATOCRIT 34.2 % (32.4-45.2); HEMOGLOBIN 11.7 GM/dL (10.7-15.3); MCH 31.4 pg (25.7-33.7); MCHC 34.2 g/dl (32.0-36.0); MONO % 11.4 % (3.8-10.2); NEUT % 64.5 % (42.8-82.8); PLATELET COUNT 269 K/MM3 (134-434); RBC 3.72 M/mm3 (3.60-5.2); RDW 14.2 % (11.6-15.6); WHITE BLOOD COUNT 7.4 K/mm3 (4.0-10.0)
[2018-10-15 08:02] LABS: ANION GAP 6 MMOL/L (8-16); BLOOD UREA NITROGEN 31 mg/dL (7-18); CALCIUM 8.3 mg/dL (8.5-10.1); CHLORIDE 101 mmol/L (98-107); CO2 24 mmol/L (21-32); CREATININE 1.1 mg/dL (0.55-1.3); GLUCOSE,RANDOM 101 mg/dL (74-106); PHOSPHOROUS 3.8 mg/dL (2.5-4.9); POTASSIUM 3.9 mmol/L (3.5-5.1); SODIUM 131 mmol/L (136-145)
[2018-10-15] MEDS: amLODIPine BESYLATE 10 MG TABLET (FP) PO SCH (09:10)
[2018-10-15] MEDS: SODIUM CHLORIDE 1 GM TABLET PO SCH (09:10)
[2018-10-15] MEDS: CLOPIDOGREL BISULFATE 75 MG TABLET (FP) PO SCH (09:10)
[2018-10-15] MEDS ORDERED: TAMSULOSIN HCL 0.4 MG CAP PO SCH (12:21)
[2018-10-15] MEDS: TAMSULOSIN HCL 0.4 MG CAP PO SCH (12:57)
[2018-10-15] MEDS: VALSARTAN 160 MG TABLET (UD) PO SCH (12:57)
[2018-10-15] MEDS: VANCOMYCIN 1 GRAM (PRE-DOCKED) 1,000 MG/250 ML BAG IVPB SCH (13:40)
[2018-10-15 15:01] VITALS: BMI 18.8
--- NOTE | 2018-10-15 16:53 | PN ---
Physical Exam: SUBJECTIVE: Patient seen and examined; c/o urinary retention and lethargy; no fever, chills, abdominal distention, pelvic pain, back pain. OBJECTIVE: Vital Signs Period Temp Pulse Resp BP Sys/Stewart Pulse Ox Last 24 Hr 97.9 F-101.5 F 68-108 18-20 105-131/47-98 95-97 GENERAL: The patient is awake, alert, and fully oriented, in no acute distress. LUNGS: Breath sounds equal, clear to auscultation bilaterally, no wheezes, no crackles, no accessory muscle use. HEART: Regular rate and rhythm, S1, S2 without murmur, rub or gallop. ABDOMEN: Soft, nontender, nondistended, normoactive bowel sounds, no guarding, no rebound, no hepatosplenomegaly, no masses. EXTREMITIES: 2+ pulses, warm, well-perfused, RLE tenderness ; with dressing; not draining; NEUROLOGICAL: Cranial nerves II through XII grossly intact. Normal speech, gait not observed. PSYCH: anxious Laboratory Results - last 24 hr 10/14/18 10/15/18 10/15/18 16:50 06:08 06:08 WBC 7.4 RBC 3.72 Hgb 11.7 Hct 34.2 MCV 92.0 MCH 31.4 MCHC 34.2 RDW 14.2 Plt Count 269 MPV 9.0 Absolute Neuts (auto) 4.8 Neutrophils % 64.5 Lymphocytes % 23.0 D Monocytes % 11.4 H Eosinophils % 0.8 Basophils % 0.3 Nucleated RBC % 0 Sodium 131 L Potassium 3.9 Chloride 101 Carbon Dioxide 24 Anion Gap 6 L BUN 31 H Creatinine 1.1 Creat Clearance w eGFR 47.32 Random Glucose 101 Calcium 8.3 L Phosphorus 3.8 Magnesium 2.0 Urine Color Ltyellow Urine Appearance Clear Urine pH 5.0 Ur Specific [place] 1.028 Urine Protein Negative Urine Glucose (UA) Negative Urine Ketones Negative Urine Blood Negative Urine Nitrite Negative Urine Bilirubin Negative Urine Urobilinogen Negative Ur Leukocyte Esterase Negative Active Medications Generic Name Dose Route Start Last Admin Trade Name Freq PRN Reason Stop Dose Admin Acetaminophen 650 mg 10/13/18 16:09 10/14/18 17:07 Tylenol - PO 650 mg Q6H PRN Administration FEVER Amlodipine Besylate 10 mg 10/14/18 10:00 10/15/18 09:10 Norvasc - PO 10 mg DAILY ALANNA Administration Clopidogrel Bisulfate 75 mg 10/14/18 12:15 10/15/18 09:10 Plavix - PO 75 mg DAILY ALANNA Administration Gabapentin 100 mg 10/13/18 22:00 10/14/18 22:14 Neurontin - PO 100 mg HS ALANNA Administration Heparin Sodium (Porcine) 5,000 unit 10/14/18 14:00 10/15/18 12:59 Heparin - SQ 5,000 unit TID ALANNA Administration Vancomycin HCl 1,000 mg in 250 mls @ 166.667 mls/hr 10/14/18 14:00 10/15/18 13:40 Vancomycin (Pre-Docked) IVPB 166.667 mls/hr Q24H ALANNA Administration Protocol Aztreonam 1 gm/ Dextrose 50 mls @ 100 mls/hr 10/14/18 14:00 10/15/18 12:59 IVPB 100 mls/hr Q12H ALANNA Administration Protocol Metoprolol Succinate 50 mg 10/14/18 10:00 10/15/18 09:10 Toprol Xl - PO 50 mg DAILY ALANNA Administration Sodium Chloride 1 gm 10/14/18 10:00 10/15/18 09:10 Sodium Chloride Tablet - PO 1 gm DAILY ALANNA Administration Tamsulosin HCl 0.4 mg 10/15/18 12:45 10/15/18 12:57 Flomax - PO 0.4 mg DAILY@0830 ALANNA Administration Valsartan 320 mg 10/14/18 10:00 10/15/18 12:57 Diovan - PO 320 mg DAILY ALANNA Administration Microbiology 10/13/18 14:45 Leg - Right Lower Gram Stain - Final 10/13/18 14:45 Leg - Right Lower Wound Culture - Preliminary Proteus Mirabilis Non Lactose Fermenting Gnb Diphtheroid/Corynebacterium 10/13/18 12:45 Blood - Peripheral Venous Blood Culture - Preliminary NO GROWTH OBTAINED AFTER 48 HOURS, INCUBATION TO CONTINUE FOR 3 DAYS. 10/13/18 13:00 Blood - Peripheral Venous Blood Culture - Preliminary NO GROWTH OBTAINED AFTER 48 HOURS, INCUBATION TO CONTINUE FOR 3 DAYS. ASSESSMENT/PLAN: This is a 83 year old female with a history of scleroderma, SIADH, raynauds, osteomyelitis, presents with non healing cellulitis that is now purulent and very tender. #RLE cellulitis: -patient with multiple allergies; - IV vancomycin/aztreonam -cultures as above -esr, crp; elevated -ct scan; negative for abscess or fluid collection -[facility] ID recs; #hx of SIADH with chronic hyponatremia -cont salt tabs -monitor fluid intake #atrial fibrillation: -rate controlled with toprol -not on AC -on plavix #htn: controlled -cont losartan Diet:regular VTE:heparin sq Disposition: med surg Visit type - Emergency Visit Emergency Visit: Yes ED Registration Date: 10/13/18 Care time: The patient presented to the Emergency Department on the above date and was hospitalized for further evaluation of their emergent condition. - New Patient This patient is new to me today: No - Critical Care Critical Care patient: No
--- NOTE | 2018-10-15 17:32 | PN ---
Teaching Attending Note Name of Resident: Zulma Sánchez ATTENDING PHYSICIAN STATEMENT I saw and evaluated the patient. I reviewed the resident's note and discussed the case with the resident. I agree with the resident's findings and plan as documented. SUBJECTIVE: Ms Dillon says she is feeling tired today. Says she "does not know" how her leg is feeling. No cp, sob, n/v. OBJECTIVE: Last Vital Signs Temp Pulse Resp BP Pulse Ox 36.6 C 80 18 105/47 L 95 10/15/18 14:31 10/15/18 14:31 10/15/18 14:31 10/15/18 14:31 10/15/18 09:00 Gen: nad Pulm: ctab w/o w/r/r CV: irreg irreg but rate controlled w/o m/r/g Abd: +bs, s/nt/nd Ext: RLE wrapped CBC, BMP 10/15/18 06:08 10/15/18 06:08 ASSESSMENT AND PLAN: Problem List - Problems (1) Cellulitis Assessment/Plan: -appreciate surgical evaluation, no intervention at this time -ID following -wound culture growing proteus and diptheroid -also growing third bacteria -continue aztreonam Code(s): L03.90 - CELLULITIS, UNSPECIFIED Qualifiers: Site of cellulitis: extremity Site of cellulitis of extremity: lower extremity Laterality: right Qualified Code(s): L03.115 - Cellulitis of right lower limb (2) HTN (hypertension) Assessment/Plan: -continue diovan, toprol xl, and norvasc -well controlled Code(s): I10 - ESSENTIAL (PRIMARY) HYPERTENSION (3) Atrial fibrillation Assessment/Plan: -continue toprol xl -on plavix, not on AC -rate controlled Code(s): I48.91 - UNSPECIFIED ATRIAL FIBRILLATION (4) Scleroderma Assessment/Plan: -noted Code(s): M34.9 - SYSTEMIC SCLEROSIS, UNSPECIFIED (5) SIADH (syndrome of inappropriate ADH production) Assessment/Plan: -continue salt tablets
[2018-10-15] MEDS: GABAPENTIN 100 MG CAPSULE (FP) PO SCH (21:53)
[2018-10-15] MEDS ORDERED: PT OWN MED DRAWER 7, Y5N ONE (23:52)
[2018-10-16] MEDS: AZTREONAM 1 GM in DEXTROSE 5%-WATER - 50 ML IVPB SCH ×2 (01:07→15:43)
[2018-10-16] MEDS: HEPARIN NA (PORCINE) 5,000 UNITS/ML 1ML VIAL SQ SCH ×3 (05:04→21:48)
[2018-10-16] MEDS ORDERED: TAMSULOSIN HCL 0.4 MG CAP PO SCH ×2 (08:30)
[2018-10-16 09:43] LABS: BASO % 0.2 % (0-2.0); EOS % 0.9 % (0-4.5); HEMATOCRIT 35.5 % (32.4-45.2); HEMOGLOBIN 12.1 GM/dL (10.7-15.3); LYMPH % 22.6 % (8-40); MCH 31.6 pg (25.7-33.7); MCHC 33.9 g/dl (32.0-36.0); MEAN CELL VOLUME 93.3 fl (80-96); MEAN PLT VOLUME 8.5 fl (7.5-11.1); MONO % 6.5 % (3.8-10.2); NEUT % 69.8 % (42.8-82.8); PLATELET COUNT 328 K/MM3 (134-434); RBC 3.81 M/mm3 (3.60-5.2); RDW 14.3 % (11.6-15.6); WHITE BLOOD COUNT 8.6 K/mm3 (4.0-10.0)
[2018-10-16] MEDS ORDERED: PT OWN MED DRAWER 7, Y5N ONE ×3 (10:18→21:39)
[2018-10-16] MEDS: CLOPIDOGREL BISULFATE 75 MG TABLET (FP) PO SCH (10:20)
[2018-10-16] MEDS: TAMSULOSIN HCL 0.4 MG CAP PO SCH (10:20)
[2018-10-16] MEDS: amLODIPine BESYLATE 10 MG TABLET (FP) PO SCH (10:20)
[2018-10-16] MEDS: SODIUM CHLORIDE 1 GM TABLET PO SCH (10:21)
[2018-10-16] MEDS: VALSARTAN 160 MG TABLET (UD) PO SCH (10:23)
[2018-10-16 11:30] LABS: ANION GAP 9 MMOL/L (8-16); BLOOD UREA NITROGEN 35 mg/dL (7-18); CALCIUM 8.3 mg/dL (8.5-10.1); CHLORIDE 99 mmol/L (98-107); CO2 23 mmol/L (21-32); CREATININE 1.1 mg/dL (0.55-1.3); GLUCOSE,RANDOM 106 mg/dL (74-106); MAGNESIUM 2.2 mg/dL (1.8-2.4); PHOSPHOROUS 4.2 mg/dL (2.5-4.9); POTASSIUM 4.3 mmol/L (3.5-5.1); SODIUM 130 mmol/L (136-145)
--- NOTE | 2018-10-16 15:29 | PN ---
Teaching Attending Note Name of Resident: Zulma Sánchez ATTENDING PHYSICIAN STATEMENT I saw and evaluated the patient. I reviewed the resident's note and discussed the case with the resident. I agree with the resident's findings and plan as documented. SUBJECTIVE: Ms Dillon says she is having difficulty urinating. Denies cp, sob , n/v. OBJECTIVE: Last Vital Signs Temp Pulse Resp BP Pulse Ox 36.4 C 72 18 118/56 L 96 10/16/18 13:28 10/16/18 13:28 10/16/18 13:28 10/16/18 13:28 10/16/18 09:00 Gen: nad Pulm: ctab w/o w/r/r CV: irreg irreg but rate controlled w/o m/r/g Abd: suprapubic distention, +bs, s/nt Ext: no c/c/e, RLE wrapped ASSESSMENT AND PLAN: (1) Cellulitis Assessment/Plan: -appreciate surgical evaluation, no intervention at this time -ID following and case discussed -growing pansensitive proteus -continue aztreonam Code(s): L03.90 - CELLULITIS, UNSPECIFIED Qualifiers: Site of cellulitis: extremity Site of cellulitis of extremity: lower extremity Laterality: right Qualified Code(s): L03.115 - Cellulitis of right lower limb (2) HTN (hypertension) Assessment/Plan: -continue diovan, toprol xl, and norvasc -well controlled Code(s): I10 - ESSENTIAL (PRIMARY) HYPERTENSION (3) Atrial fibrillation Assessment/Plan: -continue toprol xl -on plavix, not on AC -rate controlled Code(s): I48.91 - UNSPECIFIED ATRIAL FIBRILLATION (4) Scleroderma Assessment/Plan: -noted Code(s): M34.9 - SYSTEMIC SCLEROSIS, UNSPECIFIED (5) SIADH (syndrome of inappropriate ADH production) Assessment/Plan: -continue salt tablets (6) Urinary retention -encouraged ambulation and sitting in chair -continue flomax -ultrasound ordered -may need urology consult Problem List - Problems (1) Cellulitis Code(s): L03.90 - CELLULITIS, UNSPECIFIED Qualifiers: Site of cellulitis: extremity Site of cellulitis of extremity: lower extremity Laterality: right Qualified Code(s): L03.115 - Cellulitis of right lower limb (2) HTN (hypertension) Code(s): I10 - ESSENTIAL (PRIMARY) HYPERTENSION (3) Atrial fibrillation Code(s): I48.91 - UNSPECIFIED ATRIAL FIBRILLATION (4) Scleroderma Code(s): M34.9 - SYSTEMIC SCLEROSIS, UNSPECIFIED
[2018-10-16] MEDS: VANCOMYCIN 1 GRAM (PRE-DOCKED) 1,000 MG/250 ML BAG IVPB SCH (15:44)
--- NOTE | 2018-10-16 16:05 | PN ---
Progress Note, Physician History of Present Illness: AWAKE, ALERT IN BED NO C/O LEG PAIN TEMPS DOWN, AFEBRILE TOLERATING ANTIBIOTIC W/O ADVERSE RXN WOUND C/S PROTEUS, CORYNEBACTERIUM - Current Medication List Current Medications: Active Medications Acetaminophen (Tylenol -) 650 mg PO Q6H PRN PRN Reason: FEVER Last Admin: 10/14/18 17:07 Dose: 650 mg Amlodipine Besylate (Norvasc -) [address] [facility] Last Admin: 10/16/18 10:20 Dose: Not Given Clopidogrel Bisulfate (Plavix -) [address] [facility] Last Admin: 10/16/18 10:20 Dose: 75 mg Gabapentin (Neurontin -) [address] [facility] Last Admin: 10/15/18 21:53 Dose: 100 mg Heparin Sodium (Porcine) (Heparin -) 5,[address] [facility] Last Admin: 10/16/18 15:43 Dose: 5,000 unit Aztreonam 1 gm/ Dextrose 50 mls @ 100 mls/hr IVPB Q12H [facility]; Protocol Last Admin: 10/16/18 15:43 Dose: 100 mls/hr Metoprolol Succinate (Toprol Xl -) [address] [facility] Last Admin: 10/16/18 10:22 Dose: Not Given Sodium Chloride (Sodium Chloride Tablet -) [address] [facility] Last Admin: 10/16/18 10:21 Dose: 1 gm Tamsulosin HCl (Flomax -) 0.4 mg PO DAILY@0830 [facility] Last Admin: 10/16/18 10:20 Dose: 0.4 mg Valsartan (Diovan -) [address] [facility] Last Admin: 10/16/18 10:23 Dose: Not Given - Objective Vital Signs: Vital Signs Temperature 97.6 F 10/16/18 13:28 Pulse Rate 72 10/16/18 13:28 Respiratory Rate 18 10/16/18 13:28 Blood Pressure 118/56 L 10/16/18 13:28 O2 Sat by Pulse Oximetry (%) 96 10/16/18 09:00 Constitutional: Yes: No Distress Eyes: Yes: Conjunctiva Clear Cardiovascular: Yes: Regular Rate and Rhythm, S1, S2 Respiratory: Yes: CTA Bilaterally Gastrointestinal: Yes: Normal Bowel Sounds, Soft. No: Tenderness Extremities: Yes: Other (DECREASED ERYTHEMA R CALF; + INDURATION/ TENDERNESS; NO DRAINAGE) Labs: CBC, BMP 10/16/18 09:30 10/16/18 09:30 INR, PTT INR 1.05 (0.83-1.09) 10/14/18 06:00 Assessment/Plan CELLULITIS ? ST ABSCESS R LE MULTIPLE ANTIBIOTIC ALLERGIES CONTINUE AZTREONAM, LOCAL CARE
--- NOTE | 2018-10-16 20:52 | PN ---
Physical Exam: SUBJECTIVE: Patient seen and examined; still c/o of urinary retention; s/p straight cath; afebrile no pain OBJECTIVE: Vital Signs Period Temp Pulse Resp BP Sys/Stewart Pulse Ox Last 24 Hr 97.6 F-98.1 F 68-77 18-18 90-125/50-56 96 GENERAL: The patient is awake, alert, and fully oriented, in no acute distress. NECK: Trachea midline, full range of motion, supple. LUNGS: Breath sounds equal, clear to auscultation bilaterally, no wheezes, no crackles, no accessory muscle use. HEART: Regular rate and rhythm, S1, S2 without murmur, rub or gallop. ABDOMEN: Soft, +distended, normoactive bowel sounds, no guarding, no rebound, no hepatosplenomegaly, no masses. EXTREMITIES: 2+ pulses, warm, well-perfused, no edema. RLE calf with infected ulcer; less drainage; decreased swelling; erythema NEUROLOGICAL: Cranial nerves II through XII grossly intact. Normal speech, gait not observed. PSYCH: very anxious Laboratory Results - last 24 hr 10/16/18 10/16/18 09:30 09:30 WBC 8.6 RBC 3.81 Hgb 12.1 Hct 35.5 MCV 93.3 MCH 31.6 MCHC 33.9 RDW 14.3 Plt Count 328 D MPV 8.5 Absolute Neuts (auto) 6.0 Neutrophils % 69.8 Lymphocytes % 22.6 Monocytes % 6.5 Eosinophils % 0.9 Basophils % 0.2 Nucleated RBC % 0 Sodium 130 L Potassium 4.3 Chloride 99 Carbon Dioxide 23 Anion Gap 9 BUN 35 H Creatinine 1.1 Creat Clearance w eGFR 47.32 Random Glucose 106 Calcium 8.3 L Phosphorus 4.2 Magnesium 2.2 Active Medications Generic Name Dose Route Start Last Admin Trade Name Freq PRN Reason Stop Dose Admin Acetaminophen 650 mg 10/13/18 16:09 10/14/18 17:07 Tylenol - PO 650 mg Q6H PRN Administration FEVER Amlodipine Besylate 10 mg 10/14/18 10:00 10/16/18 10:20 Norvasc - PO Not Given DAILY ALANNA Clopidogrel Bisulfate 75 mg 10/14/18 12:15 10/16/18 10:20 Plavix - PO 75 mg DAILY ALANNA Administration Gabapentin 100 mg 10/13/18 22:00 10/15/18 21:53 Neurontin - PO 100 mg HS ALANNA Administration Heparin Sodium (Porcine) 5,000 unit 10/14/18 14:00 10/16/18 15:43 Heparin - SQ 5,000 unit TID ALANNA Administration Aztreonam 1 gm/ Dextrose 50 mls @ 100 mls/hr 10/14/18 14:00 10/16/18 15:43 IVPB 100 mls/hr Q12H ALANNA Administration Protocol Metoprolol Succinate 50 mg 10/14/18 10:00 10/16/18 10:22 Toprol Xl - PO Not Given DAILY [facility] Sodium Chloride 1 gm 10/14/18 10:00 10/16/18 10:21 Sodium Chloride Tablet - PO 1 gm DAILY ALANNA Administration Tamsulosin HCl 0.4 mg 10/15/18 12:45 10/16/18 10:20 Flomax - PO 0.4 mg DAILY@0830 ALANNA Administration Valsartan 320 mg 10/14/18 10:00 10/16/18 10:23 Diovan - PO Not Given DAILY [facility] Microbiology 10/13/18 12:45 Blood - Peripheral Venous Blood Culture - Preliminary NO GROWTH OBTAINED AFTER 72 HOURS, INCUBATION TO CONTINUE FOR 2 DAYS. 10/13/18 13:00 Blood - Peripheral Venous Blood Culture - Preliminary NO GROWTH OBTAINED AFTER 72 HOURS, INCUBATION TO CONTINUE FOR 2 DAYS. 10/13/18 14:45 Leg - Right Lower Gram Stain - Final 10/13/18 14:45 Leg - Right Lower Wound Culture - Final Proteus Mirabilis Proteus Mirabilis#2 Diphtheroid/Corynebacterium 10/14/18 13:10 Urine - Urine Clean Catch Urine Culture - Final NO GROWTH OBTAINED ASSESSMENT/PLAN: This is a 83 year old female with a history of scleroderma, SIADH, raynauds, osteomyelitis, presents with non healing cellulitis that is now purulent and very tender. #RLE cellulitis: -patient with multiple allergies; - IV aztreonam -cultures as above -esr, crp; elevated -ct scan; negative for abscess or fluid collection -[facility] ID recs; #urinary retention: -ML; due to immobility; PT encourage walking -started on flomax -bladder US inadequate due to wilson insertion -kidney US; atrophic kidneys; #hx of SIADH with chronic hyponatremia -cont salt tabs -monitor fluid intake #atrial fibrillation: -rate controlled with toprol -not on AC -on plavix #htn: controlled -cont losartan Diet:regular VTE:heparin sq Disposition: med surg Visit type - Emergency Visit Emergency Visit: Yes ED Registration Date: 10/13/18 Care time: The patient presented to the Emergency Department on the above date and was hospitalized for further evaluation of their emergent condition. - New Patient This patient is new to me today: No - Critical Care Critical Care patient: No
[2018-10-16] MEDS: GABAPENTIN 100 MG CAPSULE (FP) PO SCH (21:48)
[2018-10-17] MEDS ORDERED: PT OWN MED DRAWER 7, Y5N ONE ×5 (00:33→13:19)
[2018-10-17] MEDS: AZTREONAM 1 GM in DEXTROSE 5%-WATER - 50 ML IVPB SCH ×2 (01:08→13:22)
[2018-10-17] MEDS: HEPARIN NA (PORCINE) 5,000 UNITS/ML 1ML VIAL SQ SCH ×3 (06:05→22:16)
[2018-10-17] MEDS: TAMSULOSIN HCL 0.4 MG CAP PO SCH (08:07)
[2018-10-17 08:34] LABS: BASO % 0.6 % (0-2.0); EOS % 1.4 % (0-4.5); HEMATOCRIT 33.7 % (32.4-45.2); HEMOGLOBIN 11.5 GM/dL (10.7-15.3); MCH 31.7 pg (25.7-33.7); MCHC 34.1 g/dl (32.0-36.0); MONO % 7.6 % (3.8-10.2); NEUT % 63.4 % (42.8-82.8); PLATELET COUNT 336 K/MM3 (134-434); RBC 3.62 M/mm3 (3.60-5.2); RDW 14.1 % (11.6-15.6); WHITE BLOOD COUNT 8.3 K/mm3 (4.0-10.0)
[2018-10-17 08:56] LABS: ANION GAP 9 MMOL/L (8-16); BLOOD UREA NITROGEN 30 mg/dL (7-18); CHLORIDE 104 mmol/L (98-107); CO2 21 mmol/L (21-32); CREATININE 0.9 mg/dL (0.55-1.3); GLUCOSE,RANDOM 88 mg/dL (74-106); MAGNESIUM 1.9 mg/dL (1.8-2.4); PHOSPHOROUS 3.6 mg/dL (2.5-4.9); POTASSIUM 4.5 mmol/L (3.5-5.1); SODIUM 134 mmol/L (136-145)
[2018-10-17] MEDS ORDERED: ONDANSETRON 4 MG/2 ML VIAL IVPB PRN (08:56)
[2018-10-17] MEDS: amLODIPine BESYLATE 10 MG TABLET (FP) PO SCH (09:27)
[2018-10-17] MEDS: VALSARTAN 160 MG TABLET (UD) PO SCH (09:27)
[2018-10-17] MEDS: CLOPIDOGREL BISULFATE 75 MG TABLET (FP) PO SCH (09:28)
[2018-10-17] MEDS: SODIUM CHLORIDE 1 GM TABLET PO SCH (09:28)
[2018-10-17] MEDS ORDERED: SODIUM CHLORIDE 1,000 ML IV SCH (16:30)
--- NOTE | 2018-10-17 16:48 | PN ---
Physical Exam: SUBJECTIVE: Patient seen and examined; wilson in place U/O 1.1 L thus far today ; denies fever, chills, feels very weak and wiped out after walking with PT ; she states he left knee feels locked and that she has to lift her left foot off the ground to walk. She believes this is due to her "favoring" the left due to the cellulitis on the right leg. sensation is intact, strength intact. OBJECTIVE: Vital Signs Period Temp Pulse Resp BP Sys/Stewart Pulse Ox Last 24 Hr 97.7 F-98.2 F 72-80 18-18 109-125/51-80 96 GENERAL: The patient is awake, alert, and fully oriented, in no acute distress; weak looking;very slow to get up LUNGS: Breath sounds equal, clear to auscultation bilaterally, no wheezes, no crackles, no accessory muscle use. HEART: Regular rate and rhythm, S1, S2 without murmur, rub or gallop. ABDOMEN: Soft, nontender, nondistended, normoactive bowel sounds, no guarding, no rebound, no hepatosplenomegaly, no masses. EXTREMITIES: 2+ pulses, warm, well-perfused, no edema. RLE cellulitis; improved ; less tender less drainage; no pus NEUROLOGICAL: Cranial nerves II through XII grossly intact. Normal speech strength; plantar/antoni flexion and extension of the right foot 4/5; plantar/ dorsiflexion on the left 3/5; sensation is intact throughout. possible foot drop on left ?; sensation intact; Laboratory Results - last 24 hr 10/17/18 10/17/18 07:40 07:40 WBC 8.3 RBC 3.62 Hgb 11.5 Hct 33.7 MCV 93.0 MCH 31.7 MCHC 34.1 RDW 14.1 Plt Count 336 MPV 9.0 Absolute Neuts (auto) 5.2 Neutrophils % 63.4 Lymphocytes % 27.0 Monocytes % 7.6 Eosinophils % 1.4 Basophils % 0.6 Nucleated RBC % 0 Sodium 134 L Potassium 4.5 Chloride 104 Carbon Dioxide 21 Anion Gap 9 BUN 30 H Creatinine 0.9 Creat Clearance w eGFR 59.65 Random Glucose 88 Calcium 8.0 L Phosphorus 3.6 Magnesium 1.9 C-Reactive Protein 4.3 H Active Medications Generic Name Dose Route Start Last Admin Trade Name Freq PRN Reason Stop Dose Admin Acetaminophen 650 mg 10/13/18 16:09 10/14/18 17:07 Tylenol - PO 650 mg Q6H PRN Administration FEVER Amlodipine Besylate 10 mg 10/14/18 10:00 10/17/18 09:27 Norvasc - PO 10 mg DAILY COUNTS INCLUDE 234 BEDS AT THE [facility] Administration Bethanechol Chloride 25 mg 10/17/18 22:00 Urecholine - PO TID ALANNA Clopidogrel Bisulfate 75 mg 10/14/18 12:15 10/17/18 09:28 Plavix - PO 75 mg DAILY [facility] Administration Gabapentin 100 mg 10/13/18 22:00 10/16/18 21:48 Neurontin - PO 100 mg HS COUNTS INCLUDE 234 BEDS AT THE [facility] Administration Heparin Sodium (Porcine) 5,000 unit 10/14/18 14:00 10/17/18 13:22 Heparin - SQ 5,000 unit TID COUNTS INCLUDE 234 BEDS AT THE [facility] Administration Aztreonam 1 gm/ Dextrose 50 mls @ 100 mls/hr 10/14/18 14:00 10/17/18 13:22 IVPB 100 mls/hr Q12H ALANNA Administration Protocol Sodium Chloride 1,000 mls @ 125 mls/hr 10/17/18 16:30 Normal Saline - IV ASDIR COUNTS INCLUDE 234 BEDS AT THE [facility] Metoprolol Succinate 50 mg 10/14/18 10:00 10/17/18 09:27 Toprol Xl - PO 50 mg DAILY COUNTS INCLUDE 234 BEDS AT THE [facility] Administration Ondansetron HCl 4 mg 10/17/18 08:56 Zofran Injection IVPB Q6H PRN NAUSEA Sodium Chloride 1 gm 10/14/18 10:00 10/17/18 09:28 Sodium Chloride Tablet - PO 1 gm DAILY COUNTS INCLUDE 234 BEDS AT THE [facility] Administration Tamsulosin HCl 0.4 mg 10/15/18 12:45 10/17/18 08:07 Flomax - PO 0.4 mg DAILY@0830 COUNTS INCLUDE 234 BEDS AT THE [facility] Administration Valsartan 320 mg 10/14/18 10:00 10/17/18 09:27 Diovan - PO 320 mg DAILY [facility] Administration Microbiology 10/13/18 12:45 Blood - Peripheral Venous Blood Culture - Preliminary NO GROWTH OBTAINED AFTER 96 HOURS, INCUBATION TO CONTINUE FOR 1 DAYS. 10/13/18 13:00 Blood - Peripheral Venous Blood Culture - Preliminary NO GROWTH OBTAINED AFTER 96 HOURS, INCUBATION TO CONTINUE FOR 1 DAYS. 10/13/18 14:45 Leg - Right Lower Gram Stain - Final 10/13/18 14:45 Leg - Right Lower Wound Culture - Final Proteus Mirabilis Proteus Mirabilis#2 Diphtheroid/Corynebacterium 10/14/18 13:10 Urine - Urine Clean Catch Urine Culture - Final NO GROWTH OBTAINED ASSESSMENT/PLAN: This is a 83 year old female with a history of scleroderma, SIADH, raynauds, osteomyelitis, presents with non healing cellulitis that is now purulent and very tender. #RLE cellulitis: -patient with multiple allergies; - IV aztreonam -cultures as above -esr, crp; elevated -ct scan; negative for abscess or fluid collection -paula ID recs for po meds #new foot drop; urinary symptoms; -will order MRI lumbar #urinary retention: now with wilson -ML; due to immobility; PT encourage walking -started on flomax -bladder US inadequate due to wilson insertion -kidney US; atrophic kidneys; -Urology consulted #hx of SIADH with chronic hyponatremia -cont salt tabs -monitor fluid intake #atrial fibrillation: -rate controlled with toprol -not on AC -on plavix #htn: controlled -cont losartan Diet:regular VTE:heparin sq Disposition: med surg Visit type - Emergency Visit Emergency Visit: Yes ED Registration Date: 10/13/18 Care time: The patient presented to the Emergency Department on the above date and was hospitalized for further evaluation of their emergent condition. - New Patient This patient is new to me today: No - Critical Care Critical Care patient: No
--- NOTE | 2018-10-17 17:09 | PN ---
Teaching Attending Note Name of Resident: Zulma Sánchez ATTENDING PHYSICIAN STATEMENT I saw and evaluated the patient. I reviewed the resident's note and discussed the case with the resident. I agree with the resident's findings and plan as documented. SUBJECTIVE: Ms Dillon says she is feeling better today. Denies cp, sob, n/v. OBJECTIVE: Last Vital Signs Temp Pulse Resp BP Pulse Ox 36.7 C 73 18 112/56 L 96 10/17/18 15:24 10/17/18 15:24 10/17/18 15:24 10/17/18 15:24 10/16/18 21:00 Gen: nad Pulm: ctab w/o w/r/r CV: rrr w/o m/r/g Abd: +bs, s/nt/nd Ext: no c/c/e CBC, BMP 10/17/18 07:40 10/17/18 07:40 ASSESSMENT AND PLAN: (1) Cellulitis Assessment/Plan: -much improved -continue aztreonam per ID Code(s): L03.90 - CELLULITIS, UNSPECIFIED Qualifiers: Site of cellulitis: extremity Site of cellulitis of extremity: lower extremity Laterality: right Qualified Code(s): L03.115 - Cellulitis of right lower limb (2) HTN (hypertension) Assessment/Plan: -continue diovan, toprol xl, and norvasc -well controlled Code(s): I10 - ESSENTIAL (PRIMARY) HYPERTENSION (3) Atrial fibrillation Assessment/Plan: -continue toprol xl -on plavix, not on AC -rate controlled Code(s): I48.91 - UNSPECIFIED ATRIAL FIBRILLATION (4) Scleroderma Assessment/Plan: -noted Code(s): M34.9 - SYSTEMIC SCLEROSIS, UNSPECIFIED (5) SIADH (syndrome of inappropriate ADH production) Assessment/Plan: -continue salt tablets (6) Urinary retention -wilson inserted -urology consult (7) ? foot drop -seen with PT and also on our examination -MRI lumbar spine to evaluate Problem List - Problems (1) Cellulitis Code(s): L03.90 - CELLULITIS, UNSPECIFIED Qualifiers: Site of cellulitis: extremity Site of cellulitis of extremity: lower extremity Laterality: right Qualified Code(s): L03.115 - Cellulitis of right lower limb (2) HTN (hypertension) Code(s): I10 - ESSENTIAL (PRIMARY) HYPERTENSION (3) Atrial fibrillation Code(s): I48.91 - UNSPECIFIED ATRIAL FIBRILLATION (4) Scleroderma Code(s): M34.9 - SYSTEMIC SCLEROSIS, UNSPECIFIED
[2018-10-17] MEDS ORDERED: SENNOSIDES 8.6MG TABLET (FP) PO PRN (17:13)
[2018-10-17] MEDS: POLYETHYLENE GLYCOL 3350 119 GM BTL PO SCH (17:38)
[2018-10-17] MEDS: SODIUM CHLORIDE 1,000 ML IV SCH (17:38)
--- NOTE | 2018-10-17 18:48 | CONS ---
DATE OF CONSULTATION: DATE OF DICTATION: 10/17/2018 The patient is an 83-year-old female admitted via the emergency room on October 13, 2018. She came in with tenderness in her calves. The patient has been followed in Wound Care for the past six months. She has pressure ulcers and has been on Bactrim. She also has a history of high blood pressure, hypercholesterolemia, atrial fibrillation, scleroderma and Raynaud syndrome. She denies any fever or chills. She was found to be in acute urinary retention. PAST SURGICAL HISTORY: Appendectomy. ALLERGIES: 1. ASPIRIN. 2. CEPHALEXIN. 3. CIPRO. 4. PENICILLIN. 5. QUINOLONES. SOCIAL HISTORY: She denies any ethanolism or tobacco. An ultrasound of her kidneys revealed an atrophic left kidney with no evidence of hydronephrosis or acute pathology. Her bladder sonogram revealed a Acosta catheter with complete drainage of the bladder. The catheter had been placed prior to the patient's going into acute urinary retention. Presently, her abdomen is soft. There is no CVA tenderness. She is alert in bed. Her wounds came back positive for proteus and corynebacterium. Her BUN is 35, creatinine is 1.1. Her white count is 86. IMPRESSION: 1. Cellulitis and stasis dermatitis, especially of the right lower extremity. 2. Urinary retention due to being bedridden. PLAN: Will recommend placing the patient on bethanechol hydrochloride 50 mg t.i.d. for 48 hours followed by a trial of voiding. We will follow with you. Irlanda [id number]
[2018-10-17] MEDS: BETHANECHOL CHLORIDE 25 MG TABLET PO SCH (22:16)
[2018-10-17] MEDS: GABAPENTIN 100 MG CAPSULE (FP) PO SCH (22:16)
--- NOTE | 2018-10-17 23:50 | PN ---
Progress Note, Physician History of Present Illness: AWAKE, ALERT IN BED NO C/O LEG PAIN TEMPS DOWN, AFEBRILE TOLERATING ANTIBIOTIC W/O ADVERSE RXN - Current Medication List Current Medications: Active Medications Acetaminophen (Tylenol -) 650 mg PO Q6H PRN PRN Reason: FEVER Last Admin: 10/14/18 17:07 Dose: 650 mg Amlodipine Besylate (Norvasc -) 10 mg PO DAILY [facility] Last Admin: 10/17/18 09:27 Dose: 10 mg Bethanechol Chloride (Urecholine -) 25 mg PO TID [facility] Last Admin: 10/17/18 22:16 Dose: 25 mg Clopidogrel Bisulfate (Plavix -) 75 mg PO DAILY [facility] Last Admin: 10/17/18 09:28 Dose: 75 mg Gabapentin (Neurontin -) 100 mg PO HS [facility] Last Admin: 10/17/18 22:16 Dose: 100 mg Heparin Sodium (Porcine) (Heparin -) 5,000 unit SQ TID [facility] Last Admin: 10/17/18 22:16 Dose: 5,000 unit Aztreonam 1 gm/ Dextrose 50 mls @ 100 mls/hr IVPB Q12H [facility]; Protocol Last Admin: 10/17/18 13:22 Dose: 100 mls/hr Sodium Chloride (Normal Saline -) 1,000 mls @ 83 mls/hr IV ASDIR [facility] Last Admin: 10/17/18 17:38 Dose: 83 mls/hr Lorazepam (Ativan Injection -) 0.5 mg IVPUSH ONCE ONE Stop: 10/17/18 17:15 Metoprolol Succinate (Toprol Xl -) 50 mg PO DAILY [facility] Last Admin: 10/17/18 09:27 Dose: 50 mg Ondansetron HCl (Zofran Injection) 4 mg IVPB Q6H PRN PRN Reason: NAUSEA Polyethylene Glycol (Miralax (For Daily Use) -) 17 gm PO DAILY [facility] Last Admin: 10/17/18 17:38 Dose: 17 grams Senna (Senna -) 2 tab PO HS PRN PRN Reason: CONSTIPATION Sodium Chloride (Sodium Chloride Tablet -) 1 gm PO DAILY [facility] Last Admin: 10/17/18 09:28 Dose: 1 gm Tamsulosin HCl (Flomax -) 0.4 mg PO DAILY@0830 [facility] Last Admin: 10/17/18 08:07 Dose: 0.4 mg Valsartan (Diovan -) 320 mg PO DAILY [facility] Last Admin: 10/17/18 09:27 Dose: 320 mg - Objective Vital Signs: Vital Signs Temperature 97.9 F 10/17/18 19:25 Pulse Rate 72 10/17/18 19:25 Respiratory Rate 18 10/17/18 19:25 Blood Pressure 123/54 L 10/17/18 19:25 O2 Sat by Pulse Oximetry (%) 96 10/16/18 21:00 Constitutional: Yes: No Distress Cardiovascular: Yes: Regular Rate and Rhythm, S1, S2 Respiratory: Yes: CTA Bilaterally Gastrointestinal: Yes: Normal Bowel Sounds Extremities: Yes: Other (erythema R LE nearly all resolved No drainage) Labs: CBC, BMP 10/17/18 07:40 10/17/18 07:40 INR, PTT INR 1.05 (0.83-1.09) 10/14/18 06:00 Assessment/Plan CELLULITIS / ST ABSCESS R LE improved MULTIPLE ANTIBIOTIC ALLERGIES SUBSTITUTE BACTRIM DS PO BID X 7D AM LOCAL CARE
[2018-10-18] MEDS ORDERED: PT OWN MED DRAWER 7, Y5N ONE (02:24)
[2018-10-18] MEDS: AZTREONAM 1 GM in DEXTROSE 5%-WATER - 50 ML IVPB SCH (02:59)
[2018-10-18] MEDS: SODIUM CHLORIDE 1,000 ML IV SCH ×2 (04:02→17:12)
[2018-10-18] MEDS: HEPARIN NA (PORCINE) 5,000 UNITS/ML 1ML VIAL SQ SCH ×3 (06:54→21:10)
[2018-10-18] MEDS: BETHANECHOL CHLORIDE 25 MG TABLET PO SCH ×3 (06:54→21:10)
[2018-10-18 07:25] LABS: BASO % 0.4 % (0-2.0); EOS % 1.2 % (0-4.5); HEMATOCRIT 34.1 % (32.4-45.2); HEMOGLOBIN 11.6 GM/dL (10.7-15.3); LYMPH % 24.4 % (8-40); MCH 31.4 pg (25.7-33.7); MCHC 34.1 g/dl (32.0-36.0); MEAN CELL VOLUME 92.3 fl (80-96); MEAN PLT VOLUME 8.4 fl (7.5-11.1); MONO % 7.7 % (3.8-10.2); NEUT % 66.3 % (42.8-82.8); PLATELET COUNT 345 K/MM3 (134-434); RBC 3.69 M/mm3 (3.60-5.2); WHITE BLOOD COUNT 6.7 K/mm3 (4.0-10.0)
[2018-10-18 07:43] LABS: ANION GAP 6 MMOL/L (8-16); BLOOD UREA NITROGEN 22 mg/dL (7-18); CALCIUM 8.4 mg/dL (8.5-10.1); CHLORIDE 107 mmol/L (98-107); CO2 22 mmol/L (21-32); CREATININE 0.7 mg/dL (0.55-1.3); GLUCOSE,RANDOM 91 mg/dL (74-106); MAGNESIUM 2.1 mg/dL (1.8-2.4); PHOSPHOROUS 3.6 mg/dL (2.5-4.9); POTASSIUM 4.6 mmol/L (3.5-5.1); SODIUM 135 mmol/L (136-145)
[2018-10-18] MEDS: amLODIPine BESYLATE 10 MG TABLET (FP) PO SCH (09:45)
[2018-10-18] MEDS: SODIUM CHLORIDE 1 GM TABLET PO SCH (09:45)
[2018-10-18] MEDS: TAMSULOSIN HCL 0.4 MG CAP PO SCH (09:45)
[2018-10-18] MEDS: CLOPIDOGREL BISULFATE 75 MG TABLET (FP) PO SCH (09:45)
[2018-10-18] MEDS: POLYETHYLENE GLYCOL 3350 119 GM BTL PO SCH (09:46)
--- NOTE | 2018-10-18 13:50 | PN ---
Progress Note, Physician Chief Complaint: Ms Dillon says she is feeling well today. Denies cp, sob, n/v. - Current Medication List Current Medications: Active Medications Acetaminophen (Tylenol -) 650 mg PO Q6H PRN PRN Reason: FEVER Last Admin: 10/14/18 17:07 Dose: 650 mg Amlodipine Besylate (Norvasc -) 10 mg PO DAILY [facility] Last Admin: 10/18/18 09:45 Dose: 10 mg Bethanechol Chloride (Urecholine -) 25 mg PO TID [facility] Last Admin: 10/18/18 06:54 Dose: 25 mg Clopidogrel Bisulfate (Plavix -) 75 mg PO DAILY [facility] Last Admin: 10/18/18 09:45 Dose: 75 mg Gabapentin (Neurontin -) 100 mg PO HS [facility] Last Admin: 10/17/18 22:16 Dose: 100 mg Heparin Sodium (Porcine) (Heparin -) 5,000 unit SQ TID [facility] Last Admin: 10/18/18 06:54 Dose: 5,000 unit Sodium Chloride (Normal Saline -) 1,000 mls @ 83 mls/hr IV ASDIR [facility] Last Admin: 10/18/18 04:02 Dose: 83 mls/hr Lorazepam (Ativan Injection -) 0.5 mg IVPUSH ONCE ONE Stop: 10/17/18 17:15 Metoprolol Succinate (Toprol Xl -) 50 mg PO DAILY [facility] Last Admin: 10/18/18 09:45 Dose: 50 mg Ondansetron HCl (Zofran Injection) 4 mg IVPB Q6H PRN PRN Reason: NAUSEA Polyethylene Glycol (Miralax (For Daily Use) -) 17 gm PO DAILY [facility] Last Admin: 10/18/18 09:46 Dose: 17 grams Senna (Senna -) 2 tab PO HS PRN PRN Reason: CONSTIPATION Sodium Chloride (Sodium Chloride Tablet -) 1 gm PO DAILY [facility] Last Admin: 10/18/18 09:45 Dose: 1 gm Tamsulosin HCl (Flomax -) 0.4 mg PO DAILY@0830 [facility] Last Admin: 10/18/18 09:45 Dose: 0.4 mg Trimethoprim/Sulfamethoxazole (Bactrim Ds -) 1 each PO BID [facility] Stop: 10/25/18 10:01 Valsartan (Diovan -) 320 mg PO DAILY [facility] Last Admin: 10/17/18 09:27 Dose: 320 mg - Objective Vital Signs: Vital Signs Temperature 36.4 C 10/18/18 11:00 Pulse Rate 74 10/18/18 11:00 Respiratory Rate 18 10/18/18 11:00 Blood Pressure 130/64 10/18/18 11:00 O2 Sat by Pulse Oximetry (%) 99 10/18/18 09:00 Constitutional: Yes: Well Nourished, No Distress, Calm Cardiovascular: Yes: Pulse Irregular. No: Tachycardia, Gallop, Murmur, Rub Respiratory: Yes: Regular, CTA Bilaterally. No: Rales, Rhonchi, Wheezes Gastrointestinal: Yes: Normal Bowel Sounds, Soft. No: Distention, Tenderness Extremities: Yes: WNL Edema: No Labs: CBC, BMP 10/18/18 06:00 10/18/18 06:00 INR, PTT INR 1.05 (0.83-1.09) 10/14/18 06:00 Problem List - Problems (1) Cellulitis Code(s): L03.90 - CELLULITIS, UNSPECIFIED Qualifiers: Site of cellulitis: extremity Site of cellulitis of extremity: lower extremity Laterality: right Qualified Code(s): L03.115 - Cellulitis of right lower limb (2) HTN (hypertension) Code(s): I10 - ESSENTIAL (PRIMARY) HYPERTENSION (3) Atrial fibrillation Code(s): I48.91 - UNSPECIFIED ATRIAL FIBRILLATION (4) Scleroderma Code(s): M34.9 - SYSTEMIC SCLEROSIS, UNSPECIFIED Assessment/Plan (1) Cellulitis Assessment/Plan: -much improved -case d/w Dr Harding -change to bactrim bid for 7 days Code(s): L03.90 - CELLULITIS, UNSPECIFIED Qualifiers: Site of cellulitis: extremity Site of cellulitis of extremity: lower extremity Laterality: right Qualified Code(s): L03.115 - Cellulitis of right lower limb (2) HTN (hypertension) Assessment/Plan: -continue diovan, toprol xl, and norvasc -well controlled Code(s): I10 - ESSENTIAL (PRIMARY) HYPERTENSION (3) Atrial fibrillation Assessment/Plan: -continue toprol xl -on plavix, not on AC -rate controlled Code(s): I48.91 - UNSPECIFIED ATRIAL FIBRILLATION (4) Scleroderma Assessment/Plan: -noted Code(s): M34.9 - SYSTEMIC SCLEROSIS, UNSPECIFIED (5) SIADH (syndrome of inappropriate ADH production) Assessment/Plan: -continue salt tablets (6) Urinary retention -appreciate urology assistance -now on bethanechol -voiding trial tomorrow (7) ? foot drop -patient refused MRI, says she does not want it -feels her foot secondary to her favoring it in the past, does not want further workup -continue PT
[2018-10-18] MEDS: VALSARTAN 160 MG TABLET (UD) PO SCH (13:54)
[2018-10-18] MEDS ORDERED: LORazepam 2 MG/ML SDV VIAL IVPUSH SCH (17:14)
[2018-10-18] MEDS: GABAPENTIN 100 MG CAPSULE (FP) PO SCH (21:10)
[2018-10-18] MEDS: SULFAMETHOXAZOLE/TRIMETHOPRIM 800MG/160MG D.S. TABLET PO SCH (21:10)
[2018-10-19] MEDS: BETHANECHOL CHLORIDE 25 MG TABLET PO SCH ×3 (05:26→21:38)
[2018-10-19] MEDS: HEPARIN NA (PORCINE) 5,000 UNITS/ML 1ML VIAL SQ SCH ×2 (05:27→13:55)
[2018-10-19 07:26] LABS: BASO % 0.6 % (0-2.0); EOS % 1.7 % (0-4.5); HEMATOCRIT 33.7 % (32.4-45.2); HEMOGLOBIN 11.5 GM/dL (10.7-15.3); LYMPH % 28.7 % (8-40); MCH 31.3 pg (25.7-33.7); MCHC 34.1 g/dl (32.0-36.0); MEAN PLT VOLUME 8.7 fl (7.5-11.1); MONO % 7.3 % (3.8-10.2); NEUT % 61.7 % (42.8-82.8); PLATELET COUNT 345 K/MM3 (134-434); RBC 3.66 M/mm3 (3.60-5.2); RDW 14.2 % (11.6-15.6); WHITE BLOOD COUNT 5.9 K/mm3 (4.0-10.0)
[2018-10-19 07:49] LABS: ANION GAP 5 MMOL/L (8-16); BLOOD UREA NITROGEN 23 mg/dL (7-18); CALCIUM 8.2 mg/dL (8.5-10.1); CHLORIDE 108 mmol/L (98-107); CO2 22 mmol/L (21-32); CREATININE 0.7 mg/dL (0.55-1.3); GLUCOSE,RANDOM 84 mg/dL (74-106); MAGNESIUM 2.1 mg/dL (1.8-2.4); PHOSPHOROUS 3.8 mg/dL (2.5-4.9); POTASSIUM 5.1 mmol/L (3.5-5.1); SODIUM 135 mmol/L (136-145)
[2018-10-19] MEDS: VALSARTAN 160 MG TABLET (UD) PO SCH (10:54)
[2018-10-19] MEDS: SODIUM CHLORIDE 1 GM TABLET PO SCH (10:54)
[2018-10-19] MEDS: CLOPIDOGREL BISULFATE 75 MG TABLET (FP) PO SCH (10:54)
[2018-10-19] MEDS: TAMSULOSIN HCL 0.4 MG CAP PO SCH (10:54)
[2018-10-19] MEDS: SULFAMETHOXAZOLE/TRIMETHOPRIM 800MG/160MG D.S. TABLET PO SCH ×2 (10:55→21:39)
[2018-10-19] MEDS: amLODIPine BESYLATE 10 MG TABLET (FP) PO SCH (10:55)
[2018-10-19] MEDS: POLYETHYLENE GLYCOL 3350 119 GM BTL PO SCH (10:56)
--- NOTE | 2018-10-19 16:56 | PN ---
Progress Note, Physician Chief Complaint: Ms Dillon says she feels weak today. Denies cp, sob, n/v. - Current Medication List Current Medications: Active Medications Acetaminophen (Tylenol -) 650 mg PO Q6H PRN PRN Reason: FEVER Last Admin: 10/14/18 17:07 Dose: 650 mg Amlodipine Besylate (Norvasc -) 10 mg PO DAILY [facility] Last Admin: 10/19/18 10:55 Dose: 10 mg Bethanechol Chloride (Urecholine -) 25 mg PO TID [facility] Last Admin: 10/19/18 13:55 Dose: 25 mg Clopidogrel Bisulfate (Plavix -) 75 mg PO DAILY [facility] Last Admin: 10/19/18 10:54 Dose: 75 mg Enoxaparin Sodium (Lovenox -) 40 mg SQ DAILY [facility] Gabapentin (Neurontin -) 100 mg PO HS [facility] Last Admin: 10/18/18 21:10 Dose: 100 mg Lorazepam (Ativan Injection -) 0.5 mg IVPUSH [facility] Stop: 10/19/18 17:13 Last Admin: 10/18/18 17:15 Dose: Not Given Metoprolol Succinate (Toprol Xl -) 50 mg PO DAILY [facility] Last Admin: 10/19/18 10:55 Dose: 50 mg Ondansetron HCl (Zofran Injection) 4 mg IVPB Q6H PRN PRN Reason: NAUSEA Polyethylene Glycol (Miralax (For Daily Use) -) 17 gm PO DAILY [facility] Last Admin: 10/19/18 10:56 Dose: 17 grams Senna (Senna -) 2 tab PO HS PRN PRN Reason: CONSTIPATION Sodium Chloride (Sodium Chloride Tablet -) 1 gm PO DAILY [facility] Last Admin: 10/19/18 10:54 Dose: 1 gm Tamsulosin HCl (Flomax -) 0.4 mg PO DAILY@0830 [facility] Last Admin: 10/19/18 10:54 Dose: 0.4 mg Trimethoprim/Sulfamethoxazole (Bactrim Ds -) 1 each PO BID [facility] Stop: 10/25/18 10:01 Last Admin: 10/19/18 10:55 Dose: 1 each Valsartan (Diovan -) 320 mg PO DAILY [facility] Last Admin: 10/19/18 10:54 Dose: 320 mg - Objective Vital Signs: Vital Signs Temperature 36.6 C 10/19/18 13:00 Pulse Rate 65 10/19/18 08:43 Respiratory Rate 18 10/19/18 09:00 Blood Pressure 137/66 10/19/18 08:43 O2 Sat by Pulse Oximetry (%) 94 L 10/19/18 09:00 Constitutional: Yes: Well Nourished, No Distress, Calm Cardiovascular: Yes: Regular Rate and Rhythm. No: Gallop, Murmur, Rub Respiratory: Yes: Regular, CTA Bilaterally. No: Rales, Rhonchi, Wheezes Gastrointestinal: Yes: Normal Bowel Sounds, Soft. No: Distention, Tenderness Extremities: Yes: WNL Edema: No Labs: CBC, BMP 10/19/18 06:00 10/19/18 06:00 INR, PTT INR 1.05 (0.83-1.09) 10/14/18 06:00 Problem List - Problems (1) Cellulitis Code(s): L03.90 - CELLULITIS, UNSPECIFIED Qualifiers: Site of cellulitis: extremity Site of cellulitis of extremity: lower extremity Laterality: right Qualified Code(s): L03.115 - Cellulitis of right lower limb (2) HTN (hypertension) Code(s): I10 - ESSENTIAL (PRIMARY) HYPERTENSION (3) Atrial fibrillation Code(s): I48.91 - UNSPECIFIED ATRIAL FIBRILLATION (4) Scleroderma Code(s): M34.9 - SYSTEMIC SCLEROSIS, UNSPECIFIED Assessment/Plan (1) Cellulitis Assessment/Plan: -much improved -continue bactrim -will monitor potassium since on bactrim -stop heparin as can contribute to hyperkalemia Code(s): L03.90 - CELLULITIS, UNSPECIFIED Qualifiers: Site of cellulitis: extremity Site of cellulitis of extremity: lower extremity Laterality: right Qualified Code(s): L03.115 - Cellulitis of right lower limb (2) HTN (hypertension) Assessment/Plan: -continue diovan, toprol xl, and norvasc -well controlled Code(s): I10 - ESSENTIAL (PRIMARY) HYPERTENSION (3) Atrial fibrillation Assessment/Plan: -continue toprol xl -on plavix, not on AC -rate controlled Code(s): I48.91 - UNSPECIFIED ATRIAL FIBRILLATION (4) Scleroderma Assessment/Plan: -noted Code(s): M34.9 - SYSTEMIC SCLEROSIS, UNSPECIFIED (5) SIADH (syndrome of inappropriate ADH production) Assessment/Plan: -continue salt tablets (6) Urinary retention -continue bethanechol -voiding trial today (7) ? foot drop -encouraged MRI -patient declines -also declines SNF after discussion -will consult neurology in am to evaluate
[2018-10-19] MEDS: GABAPENTIN 100 MG CAPSULE (FP) PO SCH (21:38)
[2018-10-20] MEDS: BETHANECHOL CHLORIDE 25 MG TABLET PO SCH ×3 (05:28→21:46)
[2018-10-20 07:38] LABS: BASO % 0.4 % (0-2.0); EOS % 0.9 % (0-4.5); HEMATOCRIT 34.4 % (32.4-45.2); LYMPH % 14.2 % (8-40); MCH 32.2 pg (25.7-33.7); MCHC 34.8 g/dl (32.0-36.0); MEAN CELL VOLUME 92.4 fl (80-96); MEAN PLT VOLUME 8.3 fl (7.5-11.1); MONO % 7.4 % (3.8-10.2); NEUT % 77.1 % (42.8-82.8); PLATELET COUNT 367 K/MM3 (134-434); RBC 3.72 M/mm3 (3.60-5.2); RDW 13.9 % (11.6-15.6); WHITE BLOOD COUNT 8.9 K/mm3 (4.0-10.0)
[2018-10-20 07:54] LABS: ANION GAP 7 MMOL/L (8-16); BLOOD UREA NITROGEN 16 mg/dL (7-18); CALCIUM 8.2 mg/dL (8.5-10.1); CHLORIDE 105 mmol/L (98-107); CO2 23 mmol/L (21-32); CREATININE 0.9 mg/dL (0.55-1.3); GLUCOSE,RANDOM 90 mg/dL (74-106); MAGNESIUM 1.5 mg/dL (1.8-2.4); POTASSIUM 5.5 mmol/L (3.5-5.1); SODIUM 136 mmol/L (136-145)
[2018-10-20] MEDS: amLODIPine BESYLATE 10 MG TABLET (FP) PO SCH (09:03)
[2018-10-20] MEDS: TAMSULOSIN HCL 0.4 MG CAP PO SCH (09:03)
[2018-10-20] MEDS: CLOPIDOGREL BISULFATE 75 MG TABLET (FP) PO SCH (09:03)
[2018-10-20] MEDS: VALSARTAN 160 MG TABLET (UD) PO SCH (09:03)
[2018-10-20] MEDS: POLYETHYLENE GLYCOL 3350 119 GM BTL PO SCH (09:03)
[2018-10-20] MEDS: ENOXAPARIN NA (PORCINE) 40 MG/0.4 ML DISP.SYRIN SQ SCH (09:03)
[2018-10-20] MEDS: SULFAMETHOXAZOLE/TRIMETHOPRIM 800MG/160MG D.S. TABLET PO SCH (09:03)
--- NOTE | 2018-10-20 09:07 | CONSULT ---
Consult - text type - Consultation Consultation Note: Neurology CHIEF COMPLAINT: RLE pain PCP: Dr. Ramirez HISTORY OF PRESENT ILLNESS: 83 year old female with a history of scleroderma, raynauds, HTN, atrial fibrillation, SIADH, hx of LE osteomyelitis, who had been seeing wound care for RLE cellulitis, admitted with worsening RLE severe pain, swelling, purulent discharge. Denies fever, chills. ER course was notable for: IV vancomycin give ; blood/wound cultures taken. CT RLE did not show abscess or fluid collection. I was consulted for evaluation of foot drop (LLE) though does not have deficits elsewhere. Not flacid but limited dorsiflexion. Discussed with patient to have CT head to r/o CVA and initially hesitant but discussed need to confirm no stroke and she was eventually in agreement. Walker at bedside and reports ambulating with this. May benefit from short term rehab but patient states she is going home today and did not seem to want to have SNF during my encounter or based on notes reviewed. Recent Travel: PAST MEDICAL HISTORY: scleroderma, raynauds, HTN, atrial fibrillation, hx of LE osteomyelitis,RLE cellulitis, SIADH PAST SURGICAL HISTORY: appendectomy Social History: Smoking:no Alcohol:occasional Drugs: no Family History: Allergies aspirin Allergy (Verified 10/13/18 11:03) Swelling cephalexin [From Keflex] Allergy (Verified 10/13/18 11:03) ciprofloxacin [From Cipro] Allergy (Verified 10/13/18 11:03) Swelling ciprofloxacin HCl [From Cipro] Allergy (Verified 10/13/18 11:03) Swelling Penicillins Allergy (Verified 10/13/18 11:03) Swelling Quinolones Allergy (Verified 10/13/18 11:03) HOME MEDICATIONS: Home Medications Medication Instructions Recorded Acetaminophen [Tylenol .Regular 650 mg PO Q6H PRN #0 tablet 07/13/13 Strength -] Cholecalciferol (Vitamin D3) 2,000 unit PO DAILY #0 tab 07/13/13 [Vitamin D3 -] Clopidogrel Bisulfate [Plavix -] 75 mg PO DAILY #0 tablet 07/13/13 Metoprolol Succinate [Toprol XL -] 25 mg PO DAILY #0 tab.sr.24h 07/13/13 Sodium Chloride Tablet - 1 gm PO DAILY #0 tablet 07/13/13 Valsartan [Diovan] 320 mg PO DAILY #0 tablet 07/13/13 Pravastatin Sodium [Pravachol (Nf)] 40 mg PO HS 05/04/14 Gabapentin 2 cap PO HS 05/18/14 REVIEW OF SYSTEMS CONSTITUTIONAL: Absent: fever, chills, diaphoresis, generalized weakness, malaise, loss of appetite, weight change HEENT: Absent: rhinorrhea, nasal congestion, throat pain, throat swelling, difficulty swallowing, mouth swelling, ear pain, eye pain, visual changes CARDIOVASCULAR: Absent: chest pain, syncope, palpitations, irregular heart rate, lightheadedness , peripheral edema RESPIRATORY: Absent: cough, shortness of breath, dyspnea with exertion, orthopnea, wheezing, stridor, hemoptysis GASTROINTESTINAL: Absent: abdominal pain, abdominal distension, nausea, vomiting, diarrhea, constipation, melena, hematochezia GENITOURINARY: Absent: dysuria, frequency, urgency, hesitancy, hematuria, flank pain, genital pain MUSCULOSKELETAL: Absent: myalgia, arthralgia, joint swelling, back pain, neck pain SKIN: Positive: RLE cellulits Absent: rash, itching, pallor HEMATOLOGIC/IMMUNOLOGIC: Absent: easy bleeding, easy bruising, lymphadenopathy, frequent infections ENDOCRINE: Absent: unexplained weight gain, unexplained weight loss, heat intolerance, cold intolerance NEUROLOGIC: Absent: headache, focal weakness or paresthesias, dizziness, unsteady gait, seizure, mental status changes, bladder or bowel incontinence PSYCHIATRIC: Absent: anxiety, depression, suicidal or homicidal ideation, hallucinations. PHYSICAL EXAMINATION Vital Signs Period Temp Pulse Resp BP Sys/Stewart Pulse Ox Last 24 Hr 97.4 F-97.8 F 71-86 18-18 122-147/58-65 93 GENERAL: Awake, alert, and fully oriented, in no acute distress. HEAD: Normal with no signs of trauma. EYES: Pupils equal, round and reactive to light, extraocular movements intact, sclera anicteric, conjunctiva clear. No lid lag. FACE with tight skin NECK: Normal range of motion, supple without lymphadenopathy, right JVD vs effect if TR? LUNGS: Breath sounds equal, clear to auscultation bilaterally. No wheezes, and no crackles. No accessory muscle use. HEART: Regular rate and irregular rhythm, normal S1 and S2 without murmur, rub or gallop. ABDOMEN: Soft, nontender, not distended, normoactive bowel sounds, no guarding, no rebound, no masses. No hepatomegaly or splenomegaly. MUSCULOSKELETAL: Normal range of motion at all joints. No bony deformities or tenderness. No CVA tenderness. UPPER EXTREMITIES: 2+ pulses, warm, well-perfused. No cyanosis. No clubbing. No peripheral edema. LOWER EXTREMITIES: 2+ pulses, warm, well-perfused. No calf tenderness. No peripheral edema. RLE cellulitis ; swelling; very tender; purulent discharge from tiny open area NEUROLOGICAL: Cranial nerves II-XII intact. L dorisiflexion limited, sensory intact, finger to nose normal PSYCHIATRIC: Cooperative. Good eye contact. Appropriate mood and affect. SKIN: Warm, dry, normal turgor, no rashes or lesions noted, normal capillary refill. CBCD WBC 8.9 K/mm3 (4.0-10.0) 10/20/18 06:45 RBC 3.72 M/mm3 (3.60-5.2) 10/20/18 06:45 Hgb 12.0 GM/dL (10.7-15.3) 10/20/18 06:45 Hct 34.4 % (32.4-45.2) 10/20/18 06:45 MCV 92.4 fl (80-96) 10/20/18 06:45 MCHC 34.8 g/dl (32.0-36.0) 10/20/18 06:45 RDW 13.9 % (11.6-15.6) 10/20/18 06:45 Plt Count 367 K/MM3 (134-434) 10/20/18 06:45 MPV 8.3 fl (7.5-11.1) 10/20/18 06:45 CMP Sodium 136 mmol/L (136-145) 10/20/18 06:45 Potassium 5.5 mmol/L (3.5-5.1) H 10/20/18 06:45 Chloride 105 mmol/L (98-107) 10/20/18 06:45 Carbon Dioxide 23 mmol/L (21-32) 10/20/18 06:45 Anion Gap 7 MMOL/L (8-16) L 10/20/18 06:45 BUN 16 mg/dL (7-18) 10/20/18 06:45 Creatinine 0.9 mg/dL (0.55-1.3) 10/20/18 06:45 Creat Clearance w eGFR 59.65 (>60) 10/20/18 06:45 Random Glucose 90 mg/dL (74-106) 10/20/18 06:45 Calcium 8.2 mg/dL (8.5-10.1) L 10/20/18 06:45 Total Bilirubin 0.4 mg/dL (0.2-1) 10/13/18 12:45 AST 13 U/L (15-37) L 10/13/18 12:45 ALT 12 U/L (13-61) L 10/13/18 12:45 Alkaline Phosphatase 58 U/L (45-117) 10/13/18 12:45 Total Protein 8.0 g/dl (6.4-8.2) 10/13/18 12:45 Albumin 3.3 g/dl (3.4-5.0) L 10/13/18 12:45 ASSESSMENT/PLAN: 83 year old female with a history of scleroderma, raynauds, HTN, atrial fibrillation, SIADH, hx of LE osteomyelitis, who had been seeing wound care for RLE cellulitis, admitted with worsening RLE severe pain, swelling, purulent discharge. Denies fever, chills. ER course was notable for: IV vancomycin give ; blood/wound cultures taken. CT RLE did not show abscess or fluid collection. I was consulted for evaluation of foot drop (LLE) though does not have deficits elsewhere. Not flacid but limited dorsiflexion. Discussed with patient to have CT head to r/o CVA and initially hesitant but discussed need to confirm no stroke and she was eventually in agreement. Walker at bedside and reports ambulating with this. May benefit from short term rehab but patient states she is going home today and did not seem to want to have SNF during my encounter or based on notes reviewed. Ct head ordered. Continue infectious mgmt, optimization of cellulitis. Vascular follow up. Monitor bp, maintain normotensive range, continue losartan. May benefit from rehab/SNF but defer to patient/case mgmt. Fall precautions highly recommended. Physical therapy as tolerated. 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
[2018-10-20] MEDS ORDERED: PT OWN MED DRAWER 7, Y5N ONE (10:36)
[2018-10-20] MEDS: SODIUM CHLORIDE 1 GM TABLET PO SCH (14:31)
[2018-10-20] MEDS ORDERED: SODIUM POLYSTYRENE SULFONATE 15 GM/60 ML BOTTLE PO ONE (16:12)
--- NOTE | 2018-10-20 16:14 | PN ---
Physical Exam: SUBJECTIVE: Patient seen and examined; patient voided today; still weak; OBJECTIVE: Vital Signs Period Temp Pulse Resp BP Sys/Stewart Pulse Ox Last 24 Hr 97.4 F-97.8 F 67-86 18-20 119-147/57-65 93-94 GENERAL: The patient is awake, alert, and fully oriented, in no acute distress. LUNGS: Breath sounds equal, clear to auscultation bilaterally, no wheezes, no crackles, no accessory muscle use. HEART: Regular rate and rhythm, S1, S2 without murmur, rub or gallop. ABDOMEN: Soft, nontender, nondistended, normoactive bowel sounds, no guarding, no rebound, no hepatosplenomegaly, no masses. EXTREMITIES: 2+ pulses, warm, well-perfused, no edema. RLE cellulitis improved; no drain; Lfoot drop with dorsiflexion; mild sensation intact Laboratory Results - last 24 hr 10/20/18 10/20/18 06:45 06:45 WBC 8.9 RBC 3.72 Hgb 12.0 Hct 34.4 MCV 92.4 MCH 32.2 MCHC 34.8 RDW 13.9 Plt Count 367 MPV 8.3 Absolute Neuts (auto) 6.9 Neutrophils % 77.1 D Lymphocytes % 14.2 D Monocytes % 7.4 Eosinophils % 0.9 Basophils % 0.4 Nucleated RBC % 0 Sodium 136 Potassium 5.5 H Chloride 105 Carbon Dioxide 23 Anion Gap 7 L BUN 16 Creatinine 0.9 Creat Clearance w eGFR 59.65 Random Glucose 90 Calcium 8.2 L Phosphorus 4.0 Magnesium 1.5 L Active Medications Generic Name Dose Route Start Last Admin Trade Name Freq PRN Reason Stop Dose Admin Acetaminophen 650 mg 10/13/18 16:09 10/14/18 17:07 Tylenol - PO 650 mg Q6H PRN Administration FEVER Amlodipine Besylate 10 mg 10/14/18 10:00 10/20/18 09:03 Norvasc - PO 10 mg DAILY ALANNA Administration Bethanechol Chloride 25 mg 10/17/18 22:00 10/20/18 13:46 Urecholine - PO 25 mg TID ALANNA Administration Clopidogrel Bisulfate 75 mg 10/14/18 12:15 10/20/18 09:03 Plavix - PO 75 mg DAILY ALANNA Administration Enoxaparin Sodium 40 mg 10/20/18 10:00 10/20/18 09:03 Lovenox - SQ 40 mg DAILY ALANNA Administration Gabapentin 100 mg 10/13/18 22:00 10/19/18 21:38 Neurontin - PO 100 mg HS ALANNA Administration Metoprolol Succinate 50 mg 10/14/18 10:00 10/20/18 09:03 Toprol Xl - PO 50 mg DAILY ALANNA Administration Ondansetron HCl 4 mg 10/17/18 08:56 Zofran Injection IVPB Q6H PRN NAUSEA Polyethylene Glycol 17 gm 10/17/18 17:15 10/20/18 09:03 Miralax (For Daily Use) - PO Not Given DAILY ALANNA Senna 2 tab 10/17/18 17:13 Senna - PO HS PRN CONSTIPATION Sodium Chloride 1 gm 10/14/18 10:00 10/20/18 14:31 Sodium Chloride Tablet - PO 1 gm DAILY ALANNA Administration Sodium Polystyrene Sulfonate 15 gm 10/20/18 16:12 Kayexalate - PO 10/20/18 16:13 ONCE ONE Tamsulosin HCl 0.4 mg 10/15/18 12:45 10/20/18 09:03 Flomax - PO 0.4 mg DAILY@0830 ALANNA Administration Valsartan 320 mg 10/14/18 10:00 10/20/18 09:03 Diovan - PO 320 mg DAILY ALANNA Administration ASSESSMENT/PLAN: This is a 83 year old female with a history of scleroderma, SIADH, raynauds, osteomyelitis, presents with non healing cellulitis that is now purulent and very tender. #RLE cellulitis: resolving; - now off antibiotics; completed -ct scan; negative for abscess or fluid collection -[facility] ID recs for po meds #new foot drop; -refused MRI -HEAD CT negative for acute findings including cva -seen by neuro ; most likely related to peroneal nerve palsy; rec rehab #urinary retention: voided today -ML; due to immobility; PT encourage walking -started on flomaxl , bethanechol -bladder US inadequate due to wilson insertion -kidney US; atrophic kidneys; -Urology consulted #hyperkalemia: likely related to bactrin; d.c; -kayexalte x1; monitor bmp; mg #hypomag; will hold of fof mg for now as pt K increased #hx of SIADH with chronic hyponatremia -cont salt tabs -monitor fluid intake #atrial fibrillation: -rate controlled with toprol -not on AC -on plavix #htn: controlled -cont losartan Diet:regular VTE:heparin sq Disposition; monitor labs; plan to d/c tommorr Visit type - Emergency Visit Emergency Visit: Yes ED Registration Date: 10/13/18 Care time: The patient presented to the Emergency Department on the above date and was hospitalized for further evaluation of their emergent condition. - New Patient This patient is new to me today: No - Critical Care Critical Care patient: No
--- NOTE | 2018-10-20 17:56 | PN ---
Teaching Attending Note Name of Resident: Zulma Sánchez ATTENDING PHYSICIAN STATEMENT I saw and evaluated the patient. I reviewed the resident's note and discussed the case with the resident. I agree with the resident's findings and plan as documented. SUBJECTIVE: Ms Dillon is feeling better today. Denies cp, sob, n/v OBJECTIVE: Last Vital Signs Temp Pulse Resp BP Pulse Ox 36.3 C L 67 20 119/57 L 94 L 10/20/18 13:40 10/20/18 13:40 10/20/18 13:40 10/20/18 13:40 10/20/18 09:00 Gen: nad Pulm: ctab w/o w/r/r CV: rrr w/o m/r/g Abd: +bs, s/nt/nd Ext: no c/c/e ASSESSMENT AND PLAN: (1) Cellulitis Assessment/Plan: -case d/w Dr Harding -will stop bactrim secondary to hyperkalemia -observe off of antibiotics -possible discharge tomorrow pending bmp and evaluation of leg Code(s): L03.90 - CELLULITIS, UNSPECIFIED Qualifiers: Site of cellulitis: extremity Site of cellulitis of extremity: lower extremity Laterality: right Qualified Code(s): L03.115 - Cellulitis of right lower limb (2) HTN (hypertension) Assessment/Plan: -continue diovan, toprol xl, and norvasc -well controlled Code(s): I10 - ESSENTIAL (PRIMARY) HYPERTENSION (3) Atrial fibrillation Assessment/Plan: -continue toprol xl -on plavix, not on AC -rate controlled Code(s): I48.91 - UNSPECIFIED ATRIAL FIBRILLATION (4) Scleroderma Assessment/Plan: -noted Code(s): M34.9 - SYSTEMIC SCLEROSIS, UNSPECIFIED (5) SIADH (syndrome of inappropriate ADH production) Assessment/Plan: -continue salt tablets (6) Urinary retention -wilson removed and urinating (7) ? foot drop -CT head reviewed -case d/w Dr Suazo and appreciate assistance -foot brace on discharge Problem List - Problems (1) Cellulitis Code(s): L03.90 - CELLULITIS, UNSPECIFIED Qualifiers: Site of cellulitis: extremity Site of cellulitis of extremity: lower extremity Laterality: right Qualified Code(s): L03.115 - Cellulitis of right lower limb (2) HTN (hypertension) Code(s): I10 - ESSENTIAL (PRIMARY) HYPERTENSION (3) Atrial fibrillation Code(s): I48.91 - UNSPECIFIED ATRIAL FIBRILLATION (4) Scleroderma Code(s): M34.9 - SYSTEMIC SCLEROSIS, UNSPECIFIED
[2018-10-20] MEDS: GABAPENTIN 100 MG CAPSULE (FP) PO SCH (21:46)
[2018-10-21] MEDS: BETHANECHOL CHLORIDE 25 MG TABLET PO SCH ×2 (06:23→15:42)
[2018-10-21 08:20] LABS: BASO % 0.2 % (0-2.0); EOS % 0.6 % (0-4.5); HEMATOCRIT 32.5 % (32.4-45.2); MCH 30.8 pg (25.7-33.7); MCHC 33.7 g/dl (32.0-36.0); MEAN CELL VOLUME 91.4 fl (80-96); NEUT % 81.2 % (42.8-82.8); PLATELET COUNT 366 K/MM3 (134-434); RBC 3.56 M/mm3 (3.60-5.2); RDW 14.1 % (11.6-15.6); WHITE BLOOD COUNT 8.5 K/mm3 (4.0-10.0)
[2018-10-21 08:55] LABS: ANION GAP 7 MMOL/L (8-16); BLOOD UREA NITROGEN 18 mg/dL (7-18); CALCIUM 8.8 mg/dL (8.5-10.1); CHLORIDE 103 mmol/L (98-107); CO2 23 mmol/L (21-32); CREATININE 0.8 mg/dL (0.55-1.3); GLUCOSE,RANDOM 93 mg/dL (74-106); MAGNESIUM 2.1 mg/dL (1.8-2.4); PHOSPHOROUS 4.3 mg/dL (2.5-4.9); POTASSIUM 5.1 mmol/L (3.5-5.1); SODIUM 133 mmol/L (136-145)
--- NOTE | 2018-10-21 09:13 | PN ---
Progress Note (short form) - Note Progress Note: Neurology CHIEF COMPLAINT: RLE pain PCP: Dr. Ramirez HISTORY OF PRESENT ILLNESS: 83 year old female with a history of scleroderma, raynauds, HTN, atrial fibrillation, SIADH, hx of LE osteomyelitis, who had been seeing wound care for RLE cellulitis, admitted with worsening RLE severe pain, swelling, purulent discharge. Denies fever, chills. ER course was notable for: IV vancomycin give ; blood/wound cultures taken. CT RLE did not show abscess or fluid collection. I was consulted for evaluation of foot drop (LLE) though does not have deficits elsewhere. Not flacid but limited dorsiflexion. Discussed with patient to have CT head which was completed and did not show acute changes, patient reassured by these results. Walker at bedside and reports ambulating with this. May benefit from short term rehab but patient states she is going home today and did not seem to want to have SNF during my encounter or based on notes reviewed. Neurologically without other deficits and appears at baseline. Active Medications Acetaminophen (Tylenol -) 650 mg PO Q6H PRN PRN Reason: FEVER Last Admin: 10/14/18 17:07 Dose: 650 mg Amlodipine Besylate (Norvasc -) 10 mg PO DAILY [facility] Last Admin: 10/20/18 09:03 Dose: 10 mg Bethanechol Chloride (Urecholine -) 25 mg PO TID [facility] Last Admin: 10/21/18 06:23 Dose: 25 mg Clopidogrel Bisulfate (Plavix -) 75 mg PO DAILY [facility] Last Admin: 10/20/18 09:03 Dose: 75 mg Enoxaparin Sodium (Lovenox -) 40 mg SQ DAILY [facility] Last Admin: 10/20/18 09:03 Dose: 40 mg Gabapentin (Neurontin -) 100 mg PO HS [facility] Last Admin: 10/20/18 21:46 Dose: 100 mg Metoprolol Succinate (Toprol Xl -) 50 mg PO DAILY [facility] Last Admin: 10/20/18 09:03 Dose: 50 mg Ondansetron HCl (Zofran Injection) 4 mg IVPB Q6H PRN PRN Reason: NAUSEA Polyethylene Glycol (Miralax (For Daily Use) -) 17 gm PO DAILY [facility] Last Admin: 10/20/18 09:03 Dose: Not Given Senna (Senna -) 2 tab PO HS PRN PRN Reason: CONSTIPATION Sodium Chloride (Sodium Chloride Tablet -) 1 gm PO DAILY [facility] Last Admin: 10/20/18 14:31 Dose: 1 gm Tamsulosin HCl (Flomax -) 0.4 mg PO DAILY@0830 [facility] Last Admin: 10/20/18 09:03 Dose: 0.4 mg Valsartan (Diovan -) 320 mg PO DAILY [facility] Last Admin: 10/20/18 09:03 Dose: 320 mg PHYSICAL EXAMINATION Vital Signs Period Temp Pulse Resp BP Sys/Stewart Pulse Ox Last 24 Hr 97.4 F-98.0 F 67-77 18-20 118-140/57-73 96 GENERAL: Awake, alert, and fully oriented, in no acute distress. HEAD: Normal with no signs of trauma. EYES: Pupils equal, round and reactive to light, extraocular movements intact, sclera anicteric, conjunctiva clear. No lid lag. FACE with tight skin NECK: Normal range of motion, supple without lymphadenopathy, right JVD vs effect if TR? LUNGS: Breath sounds equal, clear to auscultation bilaterally. No wheezes, and no crackles. No accessory muscle use. HEART: Regular rate and irregular rhythm, normal S1 and S2 without murmur, rub or gallop. ABDOMEN: Soft, nontender, not distended, normoactive bowel sounds, no guarding, no rebound, no masses. No hepatomegaly or splenomegaly. MUSCULOSKELETAL: Normal range of motion at all joints. No bony deformities or tenderness. No CVA tenderness. UPPER EXTREMITIES: 2+ pulses, warm, well-perfused. No cyanosis. No clubbing. No peripheral edema. LOWER EXTREMITIES: 2+ pulses, warm, well-perfused. No calf tenderness. No peripheral edema. RLE cellulitis ; swelling; very tender; purulent discharge from tiny open area NEUROLOGICAL: Cranial nerves II-XII intact. L dorisiflexion limited, sensory intact, finger to nose normal PSYCHIATRIC: Cooperative. Good eye contact. Appropriate mood and affect. SKIN: Warm, dry, normal turgor, no rashes or lesions noted, normal capillary refill. CBCD WBC 8.5 K/mm3 (4.0-10.0) 10/21/18 07:50 RBC 3.56 M/mm3 (3.60-5.2) L 10/21/18 07:50 Hgb 11.0 GM/dL (10.7-15.3) 10/21/18 07:50 Hct 32.5 % (32.4-45.2) 10/21/18 07:50 MCV 91.4 fl (80-96) 10/21/18 07:50 MCHC 33.7 g/dl (32.0-36.0) 10/21/18 07:50 RDW 14.1 % (11.6-15.6) 10/21/18 07:50 Plt Count 366 K/MM3 (134-434) 10/21/18 07:50 MPV 8.0 fl (7.5-11.1) 10/21/18 07:50 CMP Sodium 133 mmol/L (136-145) L 10/21/18 07:50 Potassium 5.1 mmol/L (3.5-5.1) 10/21/18 07:50 Chloride 103 mmol/L (98-107) 10/21/18 07:50 Carbon Dioxide 23 mmol/L (21-32) 10/21/18 07:50 Anion Gap 7 MMOL/L (8-16) L 10/21/18 07:50 BUN 18 mg/dL (7-18) 10/21/18 07:50 Creatinine 0.8 mg/dL (0.55-1.3) 10/21/18 07:50 Creat Clearance w eGFR 68.34 (>60) 10/21/18 07:50 Random Glucose 93 mg/dL (74-106) 10/21/18 07:50 Calcium 8.8 mg/dL (8.5-10.1) 10/21/18 07:50 Total Bilirubin 0.4 mg/dL (0.2-1) 10/13/18 12:45 AST 13 U/L (15-37) L 10/13/18 12:45 ALT 12 U/L (13-61) L 10/13/18 12:45 Alkaline Phosphatase 58 U/L (45-117) 10/13/18 12:45 Total Protein 8.0 g/dl (6.4-8.2) 10/13/18 12:45 Albumin 3.3 g/dl (3.4-5.0) L 10/13/18 12:45 ASSESSMENT/PLAN: 83 year old female with a history of scleroderma, raynauds, HTN, atrial fibrillation, SIADH, hx of LE osteomyelitis, who had been seeing wound care for RLE cellulitis, admitted with worsening RLE severe pain, swelling, purulent discharge. Denies fever, chills. ER course was notable for: IV vancomycin give ; blood/wound cultures taken. CT RLE did not show abscess or fluid collection. I was consulted for evaluation of foot drop (LLE) though does not have deficits elsewhere. Not flacid but limited dorsiflexion. Walker at bedside and reports ambulating with this. May benefit from short term rehab but patient states she is going home today and did not seem to want to have SNF during my encounter or based on notes reviewed. Ct head reviewed and discussed. Continue infectious mgmt, optimization of cellulitis. Vascular follow up. Monitor bp, maintain normotensive range, continue losartan. May benefit from rehab/SNF but defer to patient/case mgmt. Fall precautions highly recommended. Physical therapy as tolerated. 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
[2018-10-21] MEDS: ENOXAPARIN NA (PORCINE) 40 MG/0.4 ML DISP.SYRIN SQ SCH (09:46)
[2018-10-21] MEDS: TAMSULOSIN HCL 0.4 MG CAP PO SCH (09:47)
[2018-10-21] MEDS: amLODIPine BESYLATE 10 MG TABLET (FP) PO SCH (09:47)
[2018-10-21] MEDS: VALSARTAN 160 MG TABLET (UD) PO SCH (09:47)
[2018-10-21] MEDS: CLOPIDOGREL BISULFATE 75 MG TABLET (FP) PO SCH (09:47)
[2018-10-21] MEDS: SODIUM CHLORIDE 1 GM TABLET PO SCH (09:48)
[2018-10-21] MEDS: POLYETHYLENE GLYCOL 3350 119 GM BTL PO SCH (09:49)
--- NOTE | 2018-10-21 16:03 | DS ---
Physical Examination Vital Signs: Vital Signs Temperature 36.8 C 10/21/18 13:51 Pulse Rate 78 10/21/18 13:51 Respiratory Rate 20 10/21/18 13:51 Blood Pressure 119/57 L 10/21/18 13:51 O2 Sat by Pulse Oximetry (%) 96 10/20/18 21:00 Constitutional: Yes: Well Nourished, No Distress, Calm Cardiovascular: Yes: Regular Rate and Rhythm. No: Gallop, Murmur, Rub Respiratory: Yes: Regular, CTA Bilaterally. No: Rales, Rhonchi, Wheezes Gastrointestinal: Yes: Normal Bowel Sounds, Soft. No: Distention, Tenderness Extremities: Yes: WNL Edema: No Labs: CBC, BMP 10/21/18 07:50 10/21/18 07:50 Discharge Summary Reason For Visit: CELLULITIS Current Active Problems Atrial fibrillation (Acute) Cellulitis (Acute) HLD (hyperlipidemia) (Acute) HTN (hypertension) (Acute) SIADH (syndrome of inappropriate ADH production) (Acute) Scleroderma (Acute) Hospital Course: (1) Cellulitis Code(s): L03.90 - CELLULITIS, UNSPECIFIED Qualifiers: Site of cellulitis: extremity Site of cellulitis of extremity: lower extremity Laterality: right Qualified Code(s): L03.115 - Cellulitis of right lower limb (2) HTN (hypertension) Code(s): I10 - ESSENTIAL (PRIMARY) HYPERTENSION (3) Atrial fibrillation Code(s): I48.91 - UNSPECIFIED ATRIAL FIBRILLATION (4) Scleroderma Code(s): M34.9 - SYSTEMIC SCLEROSIS, UNSPECIFIED (5) SIADH (syndrome of inappropriate ADH production) (6) Urinary retention (7) ? foot drop Mrs Dillon is a very pleasant 83 year old female who came in with cellulitis. There was concern for abscess and she was evaluated by surgery, however there was no abscess and no surgical intervention was needed. She was placed on vancomycin and aztreonam and improved significantly. Wound cultures were sent and grew proteus, she was changed to bactrim but became hyperkalemic so this was stopped. She was then observed 24 hours off of antibiotics and the hyperkalemia resolved. It was determined she was safe and did not need further antibiotics. She had urinary retention requiring wilson, this resolved with medical treatment and she is now urinating without difficulty. She also developed a foot drop, she was seen by neurology. She declined MRI and head CT was normal. She is recommended to wear a boot at the SNF. She is to follow up with Dr Suazo as an outpatient. She is safe for discharge to SNF. 37 minutes spent in preparation of this discharge. Condition: Stable - Instructions Diet, Activity, Other Instructions: regular diet. up with assistance, further activity per PT at SNF. Referrals: Gregg Suazo MD [Staff Physician] - Enmanuel Girard MD [Primary Care Provider] - Disposition: HALFWAY FACILITY - Home Medications Comprehensive Discharge Medication List: Ambulatory Orders Amlodipine Besylate [Norvasc -] 10 mg PO DAILY 10/13/18 Cholecalciferol (Vitamin D3) [Vitamin D3] 1,000 unit PO DAILY 10/13/18 Clopidogrel Bisulfate [Plavix] 75 mg PO DAILY 10/13/18 Metoprolol Succinate [Toprol Xl] 50 mg PO DAILY 10/13/18 Mupirocin Ointment [Bactroban 2% Ointment -] 1 applic TP DAILY 10/13/18 Pravastatin Sodium [Pravachol -] 80 mg PO HS 10/13/18 Sodium Chloride Tablet - 1 gm PO DAILY 10/13/18 Valsartan 320 mg PO DAILY 10/13/18 Bethanechol Chloride [Bethanechol Chloride -] 25 mg PO TID tablet 10/21/18 Gabapentin [Neurontin -] 100 mg PO HS capsule 10/21/18 Polyethylene Glycol 3350 [Miralax 119 gm Btl -] 17 gm PO DAILY bottle 10/21/18 Sennosides [Senna -] 2 tab PO HS PRN tablet 10/21/18
[2018-10-21 18:31] VITALS: BP 119/53; PULSE 74; TEMP 98.6
== END 2018-10-21 18:44 | DRG 603 ==
LOC: JER 10:58 → JERBED 14:14 → J7W 18:51
PROVIDERS: ADMIT Hospitalist; ATTEND Internal Medicine
DX: L03.115 Cellulitis of right lower limb (principal); E22.2 Syndrome of inappropriate secretion of antidiuretic hormone; I48.91 Unspecified atrial fibrillation; M34.9 Systemic sclerosis, unspecified; E87.5 Hyperkalemia; R33.9 Retention of urine, unspecified; I10 Essential (primary) hypertension; M21.372 Foot drop, left foot; E78.5 Hyperlipidemia, unspecified; E83.42 Hypomagnesemia
CPT/HCPCS: 36415; 70450-TC; 73701-TC-RT; 76775-TC; 76856-TC; 80048; 80053; 81003; 83605; 83735; 84100; 85025; 85610; 85651; 85730; 86140; 87040; 87070; 87086; 87186; 87205; 93005; 93010; 93971-TC; 97116-GP; 97161-GP; 99282-25; J0131; J1644; J7030

== ENCOUNTER 2018-10-26 16:01 | Inpatient (IN) | payer OTHER ==
--- NOTE | 2018-10-26 16:36 | PDOC ---
History of Present Illness - History of Present Illness Initial Comments: The pt is an 83F w/ a history of a-fib, scleroderma, Raynaud's, recent admission for cellulitis who presents for evaluation of 1 [address] of [address] Per Dr. Arreaga at the rehab facility, the pt had a CXR last night concerning for PNA. Per the pt, she has had one week of productive cough w/ associated generalized fatigue. She denies fevers, chest pain, SOB, abdominal pain, N/V. Pt was recently admitted for RLE cellulitis, was treated IV abx and discharged to rehab PSH: Landry Delgado foot ray amputation SH: Denies tobacco, or illicit drug use 10/26/18 17:30 <Syd Hinton - Last Filed: 10/26/18 22:23> <Margie Dominguez - Last Filed: 10/26/18 22:44> - General Chief Complaint: Weakness Stated Complaint: WEAKNESS Past History - Past Medical History Cardiac Disorders: Yes (A FIB) COPD: No HTN: Yes Hypercholesterolemia: Yes - Surgical History Abdominal Surgery: Yes Appendectomy: Yes Neurologic Surgery: No Orthopedic Surgery: Yes (L. Pinky toe amputation) - Immunization History Immunization Up to Date: Yes - Suicide/Smoking/Psychosocial Hx Smoking Status: No Smoking History: Never smoked Have you smoked in the past 12 months: No Number of Cigarettes Smoked Daily: 0 Hx Alcohol Use: No Drug/Substance Use Hx: No Substance Use Type: Alcohol Hx Substance Use Treatment: No <Syd Hinton - Last Filed: 10/26/18 22:23> <Margie Dominguez - Last Filed: 10/26/18 22:44> - Past Medical History Allergies/Adverse Reactions: Allergies Allergy/AdvReac Type Severity Reaction Status Date / Time aspirin Allergy Swelling Verified 10/26/18 16:45 cephalexin [From Keflex] Allergy Verified 10/26/18 16:45 ciprofloxacin [From Cipro] Allergy Swelling Verified 10/26/18 16:45 ciprofloxacin HCl Allergy Swelling Verified 10/26/18 16:45 [From Cipro] Penicillins Allergy Swelling Verified 10/26/18 16:45 Quinolones Allergy Verified 10/26/18 16:45 Home Medications: Ambulatory Orders Amlodipine Besylate [Norvasc -] 10 mg PO DAILY 10/13/18 Cholecalciferol (Vitamin D3) [Vitamin D3] 1,000 unit PO DAILY 10/13/18 Clopidogrel Bisulfate [Plavix] 75 mg PO DAILY 10/13/18 Metoprolol Succinate [Toprol Xl] 50 mg PO DAILY 10/13/18 Pravastatin Sodium [Pravachol -] 80 mg PO HS 10/13/18 Sodium Chloride Tablet - 1 gm PO DAILY 10/13/18 Valsartan 320 mg PO DAILY 10/13/18 Bethanechol Chloride [Bethanechol Chloride -] 25 mg PO TID tablet 10/21/18 Gabapentin [Neurontin -] 100 mg PO HS capsule 10/21/18 Polyethylene Glycol 3350 [Miralax 119 gm Btl -] 17 gm PO DAILY bottle 10/21/18 Sennosides [Senna -] 2 tab PO HS PRN tablet 10/21/18 Azithromycin 500 mg PO DAILY 10/26/18 Guaifenesin 100 mg PO TID 10/26/18 Review of Systems - Review of Systems Able to Perform ROS?: Yes Comments:: GENERAL/CONSTITUTIONAL: No fever or chills HEAD, EYES, EARS, NOSE AND THROAT: No change in vision or hearing CARDIOVASCULAR: No chest pain or shortness of breath RESPIRATORY: Denies hemoptysis GASTROINTESTINAL: No nausea, vomiting, diarrhea or constipation GENITOURINARY: No dysuria, frequency, or change in urination MUSCULOSKELETAL: No joint or muscle swelling or pain. No neck or back pain SKIN: +BLE skin changes 2/2 scleroderma NEUROLOGIC: No vertigo, loss of consciousness, or change in strength/sensation ENDOCRINE: No increased thirst. No abnormal weight change HEMATOLOGIC/LYMPHATIC: +Plavix ALLERGIC/IMMUNOLOGIC: No hives or skin allergy 10/26/18 16:35 Is the patient limited [place] proficient: No <Syd Hinton - Last Filed: 10/26/18 22:23> *Physical Exam - Vital Signs Vital Signs Temp Pulse Resp BP Pulse Ox 97.2 F L 77 16 120/82 94 L 10/26/18 16:01 10/26/18 16:01 10/26/18 16:01 10/26/18 16:01 10/26/18 16:01 10/26/18 17:39 - Physical Exam Comments: GENERAL: Awake, alert, and oriented to person/place/time, in no acute distress HEAD: No signs of trauma, normocephalic, atraumatic EYES: PERRLA, EOMI, sclera anicteric, conjunctiva clear ENT: Hearing grossly normal, nares patent, oropharynx clear without exudates. Moist mucosa LUNGS: No distress, speaks full sentences, clear to auscultation bilaterally HEART: Regular rate w/ irregularly irregular rhythm, normal S1 and S2, no murmurs appreciated, peripheral pulses normal and equal bilaterally ABDOMEN: Soft, nontender, normoactive bowel sounds. No guarding, no rebound EXTREMITIES: BLE skin scaling; no BLE edema. +clubbing NEUROLOGICAL: Cranial nerves II through XII grossly intact. Normal speech, no focal sensorimotor deficits SKIN: BLE skin scaling; w/o cellulitis 10/26/18 16:36 <Syd Hinton - Last Filed: 10/26/18 22:23> - Vital Signs Last Vital Signs Temp Pulse Resp BP Pulse Ox 98.9 F 77 16 120/82 94 L 10/26/18 17:41 10/26/18 16:01 10/26/18 16:01 10/26/18 16:01 10/26/18 16:01 <Margie Dominguez - Last Filed: 10/26/18 22:44> ED Treatment Course - LABORATORY CBC & Chemistry Diagram: 10/26/18 17:30 10/26/18 17:30 <Syd Hinton - Last Filed: 10/26/18 22:23> - LABORATORY CBC & Chemistry Diagram: 10/26/18 17:30 10/26/18 17:30 - ADDITIONAL ORDERS Additional order review: Laboratory Results 10/26/18 10/26/18 10/26/18 17:30 17:30 17:30 WBC 9.6 RBC 3.42 L Hgb 10.6 L Hct 31.3 L MCV 91.3 MCH 31.0 MCHC 34.0 RDW 13.8 Plt Count 508 H D MPV 7.6 Sodium 130 L Potassium 4.7 Chloride 101 Carbon Dioxide 22 Anion Gap 7 L BUN 20 H Creatinine 0.7 Creat Clearance w eGFR 79.72 Random Glucose 106 Calcium 8.4 L Total Bilirubin 0.2 AST 18 ALT 18 Alkaline Phosphatase 66 Troponin I < 0.02 Total Protein 7.1 Albumin 2.6 L Influenza A (Rapid) Influenza B (Rapid) 10/26/18 17:29 WBC RBC Hgb Hct MCV MCH MCHC RDW Plt Count MPV Sodium Potassium Chloride Carbon Dioxide Anion Gap BUN Creatinine Creat Clearance w eGFR Random Glucose Calcium Total Bilirubin AST ALT Alkaline Phosphatase Troponin I Total Protein Albumin Influenza A (Rapid) Negative Influenza B (Rapid) Negative 10/26/18 17:30 RBC 3.42 L MCV 91.3 MCHC 34.0 RDW 13.8 MPV 7.6 - Medications Given in the ED: ED Medications Discontinued Medications Generic Name Dose Route Start Last Admin Trade Name Freq PRN Reason Stop Dose Admin Cefepime HCl 2 gm in 50 mls @ 100 mls/hr 10/26/18 18:52 10/26/18 19:10 Maxipime 2gm Ivpb (Premix) IVPB 10/26/18 19:21 100 mls/hr ONCE ONE Administration Vancomycin HCl 1,000 mg/ 250 mls @ 166.667 mls/hr 10/26/18 18:52 10/26/18 20: 15 Dextrose IVPB 10/26/18 20:21 166.667 mls/hr ONCE ONE Administration Sodium Chloride 1,000 ml 10/26/18 19:12 10/26/18 20:15 Normal Saline - IV 10/26/18 19:13 1,000 ml ONCE ONE Administration <Margie Dominguez - Last Filed: 10/26/18 22:44> Medical Decision Making - Medical Decision Making The pt is an 83F w/ a history of scleroderma, Raynaud's, a-fib who presents for evaluation of productive cough for one week w/ generalized weakness w/o fever ED Course CMP, CBC, Trop I CXR ECG ECG w/ a-fib; HR 77 Trop I neg Lytes wnl No leukocytosis Anemia, Hgb 10.6, no indication to transfuse at this time Influenza neg 10/26/18 18:30 POCUS significant for b/l pleural effusions, a-lines, diffuse b-lines, R basilar air-bronchograms and consolidation consistent with PNA. Will start Vancomycin/Cefepime. Will obtain sputum culture 10/26/18 18:54 Dispo: Admit for PNA and pleural effusion <Syd Hinton - Last Filed: 10/26/18 22:23> *DC/Admit/Observation/Transfer - Discharge Dispostion Decision to Admit order: Yes <Syd Hinton - Last Filed: 10/26/18 22:23> - Discharge Dispostion Decision to Admit order: Yes Decision to Admit order Date/Time: 10/26/18 20:24 <AngelicaMargie Edisonluis - Last Filed: 10/26/18 22:44> Diagnosis at time of Disposition: Scleroderma, Hyponatremia, Pleural effusion Atrial fibrillation Qualifiers: Atrial fibrillation type: chronic Qualified Code(s): I48.2 - Chronic atrial fibrillation Pneumonia Qualifiers: Pneumonia type: due to unspecified organism Laterality: unspecified laterality Lung location: unspecified part of lung Qualified Code(s): J18.9 - Pneumonia, unspecified organism - Discharge Dispostion Condition at time of disposition: Fair
[2018-10-26 17:36] LABS: HEMATOCRIT 31.3 % (32.4-45.2); HEMOGLOBIN 10.6 GM/dL (10.7-15.3); MEAN CELL VOLUME 91.3 fl (80-96); MEAN PLT VOLUME 7.6 fl (7.5-11.1); PLATELET COUNT 508 K/MM3 (134-434); RBC 3.42 M/mm3 (3.60-5.2); RDW 13.8 % (11.6-15.6); WHITE BLOOD COUNT 9.6 K/mm3 (4.0-10.0)
--- NOTE | 2018-10-26 17:42 | PDOC ---
Attending Attestation - Resident Resident Name: Syd Hinton - ED Attending Attestation I have performed the following: I have examined & evaluated the patient, The case was reviewed & discussed with the resident, I agree w/resident's findings & plan - HPI HPI: 10/26/18 19:28 [id number], with significant past medical history of HTN, Hypercholesterolemia, Atrial Fibrillation (on Plavix), Scleroderma, and Raynaud's Syndrome, who presents to the ED from [facility] for cough and generalized malaise, here to also r/o blt lower lobe pneumonia. As per rehab physician Dr. Arreaga, on x- ray performed last night there were infiltrates suspicious for pneumonia prompting her arrival to the ED. Recently admitted last week and dcd on 10/21/18 for RLE cellulitis +Proteus s/p aztreonam and vancomycin, transitioned to bactrim. Allergies: Aspirin, cephalexin, ciprofloxacin, penicillins, quinolones. Past surgical history: appendectomy. Social history: Resident at [facility]. Primary Care Physician: Dr. Girard Wound Care: Dr. Hernández Department Mgr: - Physicial Exam PE: 10/26/18 17:46 NAD, well appearing, PERRL, EOMI, MMM, nl conjunctiva, anicteric; neck supple. lungs with b/l crackles, diminished breath sounds at the bases +coughing. no respiratory distress. irregular irregular. abdomen soft nontender. MILLER x4, no focal neuro deficits. No peripheral edema. normal color for ethnicity, WWP. + RLE with venous stasis changes s/p cellulitis treatment, no drainage, no purulence or firmness, no tenderness. 10/26/18 20:22 - Medical Decision Making 10/26/18 19:31 See HPI for details Vital signs reviewed, afebrile rectally, normotensive, sats borderline at 94% on RA, improving higher with coughing and expectorating Prior notes reviewed, including admissions, discharges and consultations. laboratory results and imaging reviewed, basic labs and lytes wnl, notable for baseline anemia. +hyponatremia noted, likely hypovolemic, given IVF CXR_interstitial markings, unable to differentiate costophrenic angles Cardiac panel_neg, doubt cardiac EKG Atrial fibrillation at 77 bpm, no interval abnormalities, narrow QRS, ST and T wave segments and morphology normal. Nonspecific T wave abnormalities in lateral lead, I,AVL ED course - gentle hydration for likely hypovolemic mild hyponatremia - influenza neg. - cultures pending, sputum and blood. - given IV abx empiric coverage, IV vancomycin and cefepime. - POCUS thoracic exam with bilateral pleural effusions >moderate, and left greater than right, with consolidated lung on right lower base indicative of Pneumonia. - CT chest ordered to elucidate further possible thoracentesis to drain admit to medical team for medical management, pneumonia and pleural effusions. admitting to Dr Jones 10/26/18 20:25 10/26/18 20:26 Heart Score/ECG Review #1 ECG reviewed & interpreted by me at: 16:15 General ECG Interpretation: Normal Rate Compared to previous ECG there are: No significant change 10/26/18 19:32 EKG Atrial fibrillation at 77 bpm, no interval abnormalities, narrow QRS, ST and T wave segments and morphology normal. Nonspecific T wave abnormalities in lateral lead, I,AVL Procedures - Bedside Ultrasound Bedside Ultrasound: Lung Remarks: 10/26/18 19:30 POCUS thoracic exam performed and documented/saved, indication includes dyspnea. views obtained ( bilateral lung mejia). Findings include bilateral lung sliding, scant b lines and bilateral pleural effusions, moderate on the right, large on the left with atelectatic lung. +air bronchograms and consolidation on RLL at the base. Impression: pneumonia/consolidation in Right lower lung, bilateral pleural effusions.
[2018-10-26 18:01] LABS: ALBUMIN 2.6 g/dl (3.4-5.0); ALK PHOS 66 U/L (45-117); ANION GAP 7 MMOL/L (8-16); BILIRUBIN,TOTAL 0.2 mg/dL (0.2-1); BLOOD UREA NITROGEN 20 mg/dL (7-18); CALCIUM 8.4 mg/dL (8.5-10.1); CHLORIDE 101 mmol/L (98-107); CO2 22 mmol/L (21-32); CREATININE 0.7 mg/dL (0.55-1.3); GLUCOSE,RANDOM 106 mg/dL (74-106); POTASSIUM 4.7 mmol/L (3.5-5.1); SGOT/AST 18 U/L (15-37); SGPT/ALT 18 U/L (13-61); SODIUM 130 mmol/L (136-145); TOT PROT 7.1 g/dl (6.4-8.2)
[2018-10-26] MEDS ORDERED: CEFEPIME HCL/D5W 2 GM/50 ML BAG IVPB ONE (18:52)
[2018-10-26] MEDS ORDERED: VANCOMYCIN 1,000 MG in DEXTROSE 5%-WATER - 250 ML IVPB ONE (18:52)
[2018-10-26] MEDS ORDERED: CEFEPIME 2 GM/100 ML BAG IVPB ONE (19:04)
[2018-10-26] MEDS ORDERED: SODIUM CHLORIDE 0.9% 500 ML INFUS.BAG IV ONE (19:12)
--- NOTE | 2018-10-26 19:38 | HP ---
CHIEF COMPLAINT: cough with yellow sputum PCP:Dr. Ramirez HISTORY OF PRESENT ILLNESS: The pt is an 83F w/ a history of a-fib, scleroderma, Raynaud's,HTN , HLD , SIADH , recent admission for cellulitis who presents for evaluation of 1 week of productive cough of yellow sputim small cup in amount , continious cough wake her up at night . Per Dr. Arreaga at the rehab facility, the pt had a CXR last night concerning for PNA. Per the pt, she has had one week of productive cough w/ associated generalized fatigue. She denies fevers, chest pain, SOB, abdominal pain, N/V.denies any urinary symptoms and state that he LE cellulitis improving. Pt was recently admitted for RLE cellulitis, was treated IV abx and discharged to rehab [facility]. ER course was notable for: (1)cbc ,cmp (2)CXR (3)CT chest , IV vanco and cefepim Recent Travel: denies PAST MEDICAL HISTORY: as per HPI PAST SURGICAL HISTORY: appendix , left pink toe partial amputation Social History: Smoking:denies Alcohol:denies Drugs: denies Family History:Mother liver cancer and pancreatic cancer , father with lung cancer , DM , son with Hodjkin lymphoma Allergies aspirin Allergy (Verified 10/26/18 16:45) Swelling cephalexin [From Keflex] Allergy (Verified 10/26/18 16:45) ciprofloxacin [From Cipro] Allergy (Verified 10/26/18 16:45) Swelling ciprofloxacin HCl [From Cipro] Allergy (Verified 10/26/18 16:45) Swelling Penicillins Allergy (Verified 10/26/18 16:45) Swelling Quinolones Allergy (Verified 10/26/18 16:45) HOME MEDICATIONS: Home Medications Medication Instructions Recorded Amlodipine Besylate [Norvasc -] 10 mg PO DAILY 10/13/18 Cholecalciferol (Vitamin D3) 1,000 unit PO DAILY 10/13/18 [Vitamin D3] Clopidogrel Bisulfate [Plavix] 75 mg PO DAILY 10/13/18 Metoprolol Succinate [Toprol Xl] 50 mg PO DAILY 10/13/18 Pravastatin Sodium [Pravachol -] 80 mg PO HS 10/13/18 Sodium Chloride Tablet - 1 gm PO DAILY 10/13/18 Valsartan 320 mg PO DAILY 10/13/18 Bethanechol Chloride [Bethanechol 25 mg PO TID tablet 10/21/18 Chloride -] Gabapentin [Neurontin -] 100 mg PO HS capsule 10/21/18 Polyethylene Glycol 3350 [Miralax 17 gm PO DAILY bottle 10/21/18 119 gm Btl -] Sennosides [Senna -] 2 tab PO HS PRN tablet 10/21/18 Azithromycin 500 mg PO DAILY 10/26/18 Guaifenesin 100 mg PO TID 10/26/18 REVIEW OF SYSTEMS cough with yellow sputum PHYSICAL EXAMINATION Vital Signs - 24 hr 10/26/18 10/26/18 16:01 17:41 Temperature 97.2 F L 98.9 F Pulse Rate 77 Respiratory 16 Rate Blood Pressure 120/82 O2 Sat by Pulse 94 L Oximetry (%) GENERAL: AAOx3 in NAD HEAD: NC/AT EYES: EOMI, Conjunctiva clear, sclera anicteric ENT: moist mucous membrane NECK: Supple, no JVD LUNGS: coarse breath sounds at the bases , no crackles HEART: RRR, NSR, normal s1, s2, no M/R/G ABDOMEN: Soft, ND, NT, +BS 4 Q, no CVA Tenderness, abdominal surgical scar LOWER EXTREMITIES: no edemaleft biger than the right , +2DP pulse,left erythema with cellulitis improving, left partial pink toe amputation , NEUROLOGICAL: No focal deficit. Normal speech. gait not observed. PSYCHIATRIC: Cooperative. Good eye contact. Appropriate mood and affect. SKIN: Warm, dry, Laboratory Results - last 24 hr 10/26/18 10/26/18 10/26/18 17:29 17:30 17:30 WBC 9.6 RBC 3.42 L Hgb 10.6 L Hct 31.3 L MCV 91.3 MCH 31.0 MCHC 34.0 RDW 13.8 Plt Count 508 H D MPV 7.6 Sodium 130 L Potassium 4.7 Chloride 101 Carbon Dioxide 22 Anion Gap 7 L BUN 20 H Creatinine 0.7 Creat Clearance w eGFR 79.72 Random Glucose 106 Calcium 8.4 L Total Bilirubin 0.2 AST 18 ALT 18 Alkaline Phosphatase 66 Troponin I Total Protein 7.1 Albumin 2.6 L Influenza A (Rapid) Negative Influenza B (Rapid) Negative 10/26/18 17:30 WBC RBC Hgb Hct MCV MCH MCHC RDW Plt Count MPV Sodium Potassium Chloride Carbon Dioxide Anion Gap BUN Creatinine Creat Clearance w eGFR Random Glucose Calcium Total Bilirubin AST ALT Alkaline Phosphatase Troponin I < 0.02 Total Protein Albumin Influenza A (Rapid) Influenza B (Rapid) CBC, BMP 10/26/18 17:30 10/26/18 17:30 ASSESSMENT/PLAN: This is a 83 year old female with a history of scleroderma, SIADH, raynauds, osteomyelitis, presents with one week history of productive cough admitted for HPNA # HPNA # 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 * 5 days of productive cough, no fever, no WBC , coarse breath sounds on exam * CXR * CT pending official reading * started one day after rehab , pt was discharged recently from the hospital will cover for Hospital aquired PNA Vanco, Doxycyclin and Aztreonam due to penicillin and keflex allergy * Incentive spirometry * consider ID consult in AM for Abx approval * vanco/aztreonam, doxycyclin * urine legionella ag * influenza a,B negative * pulm consult * IV soluimedrol # thrombcytosis * mild no active bleeding or calf pain or chest pain * work up as out pt * #hx of SIADH: * NA 130 * cont salt tabs * monitor fluid intake #atrial fibrillation: * rate controlled with toprol XL 50 daily * cont plavix; allergic to ASA #htn: controlled * cont Valsartan 320, norvasc 10, # HLD, cont Pravastatin 80 HS # constipation cont Senna and miralax as needed for constipation # FEN * no standing fluids * Monitor lytes as hyponatremic on sodium tablets * N: regular diet # Proph * DVTS: SCDS , Lovenox 40 SQ daily * GI: no need for now #Disposition: med surg Visit type - Emergency Visit Emergency Visit: Yes ED Registration Date: 10/26/18 Care time: The patient presented to the Emergency Department on the above date and was hospitalized for further evaluation of their emergent condition. - New Patient This patient is new to me today: Yes Date on this admission: 10/27/18 - Critical Care Critical Care patient: No
--- NOTE | 2018-10-26 19:48 | PN ---
Teaching Attending Note Name of Resident: Don Resendiz ATTENDING PHYSICIAN STATEMENT I saw and evaluated the patient. I reviewed the resident's note and discussed the case with the resident. I agree with the resident's findings and plan as documented. SUBJECTIVE: Patient is an 83 year old woman with PMH of HTN, Hypercholesterolemia, Pneicillin/Cipro Allergy, Atrial Fibrillation (not on anticoagulation but on Plavix), Scleroderma, Raynaud's Syndrome, Chronic hyponatremia/SIADH, and recurrent RLE stasis ulcer since 02/2018 being followed at [facility], [facility] and generalized malaise. Was sent to rule out lower lobe pneumonia. As per rehab physician Dr. Arreaga, on CXR performed last night there were infiltrates suspicious for pneumonia. Patient was recently admitted for RLE celllulitis and discharged on 10/21/18 (+ Proteus s/p aztreonam and vancomycin, transitioned to bactrim). OBJECTIVE: Alert Vital Signs Period Temp Pulse Resp BP Sys/Stewart Pulse Ox Last 24 Hr 97.2 F-98.9 F 77 16 120/82 94 HEENT: No Jaundice, eye redness or discharge, PERRLA, EOMI. Normocephalic, atraumatic. External ears are normal and hearing is grossly intact. No nasal discharge. Neck: Supple, nontender. No palpable adenopathy or thyromegaly. No JVD Chest: Good effort. Coarse breath sounds. Clear to percussion. Heart: Regular. No S3, rub or murmur Abdomen: Not distended, soft, nontender and no HSM. No rebound or guarding. Normal bowel sounds. Ext: Peripheral pulses intact. No leg edema. Sclerotic changes in both hands and scleroderma deformities. Partial amputation of left 5th toe. Skin: Warm and dry. No petechiae, rash or ecchymosis. RLE stasis dermatitis changes and tiny ulcer. Neuro: Alert. Oriented x3. CN 2-12 grossly intact. Sensation grossly intact in all four extremities and DTR are symmetric. Psych: Appropriate mood and affect. Good insight. Current Medications Generic Name Dose Route Start Last Admin Trade Name Freq PRN Reason Stop Dose Admin Vancomycin HCl 1,000 mg/ 250 mls @ 166.667 mls/hr 10/26/18 18:52 Dextrose IVPB 10/26/18 20:21 ONCE ONE Home Medications Medication Instructions Recorded Amlodipine Besylate [Norvasc -] 10 mg PO DAILY 10/13/18 Cholecalciferol (Vitamin D3) 1,000 unit PO DAILY 10/13/18 [Vitamin D3] Clopidogrel Bisulfate [Plavix] 75 mg PO DAILY 10/13/18 Metoprolol Succinate [Toprol Xl] 50 mg PO DAILY 10/13/18 Pravastatin Sodium [Pravachol -] 80 mg PO HS 10/13/18 Sodium Chloride Tablet - 1 gm PO DAILY 10/13/18 Valsartan 320 mg PO DAILY 10/13/18 Bethanechol Chloride [Bethanechol 25 mg PO TID tablet 10/21/18 Chloride -] Gabapentin [Neurontin -] 100 mg PO HS capsule 10/21/18 Polyethylene Glycol 3350 [Miralax 17 gm PO DAILY bottle 10/21/18 119 gm Btl -] Sennosides [Senna -] 2 tab PO HS PRN tablet 10/21/18 Azithromycin 500 mg PO DAILY 10/26/18 Guaifenesin 100 mg PO TID 10/26/18 Abnormal Lab Results 10/26/18 10/26/18 17:30 17:30 RBC 3.42 L Hgb 10.6 L Hct 31.3 L Plt Count 508 H D Sodium 130 L Anion Gap 7 L BUN 20 H Calcium 8.4 L Albumin 2.6 L ASSESSMENT AND PLAN: 1. Pneumonia (?HCAP) - CXR shows bilateal increased lung markings and and fluffy bibasilar infiltrates (R>L). Chest CT result pending. Will treat with IV vancomycin, aztreonam and doxycycline. Consult ID. Continue to restrict free water intake to <800 ml daily to address chronic hyponatremia. Daily wound care of RLE stasis ulcer. 2. Hypoalbuminemia - Possibly due to combined effects of malnutrition and inflammation associated with comorbid chronic conditions. Will ensure adequate dietary protein intake and also consult embedded systems developer. 3. Anemia - Likely multifactorial. Do basic anemia work up including serial stool guaiacs, reticulocyte count and iron studies. 4. Hypertension - Restart outpatient antihypertensive drugs when clinically apprpriate. Nonpharmacologic measures to control hypertension like weight loss, salt restriction and exercise discussed. 5. DVT prophylaxis - Lovenox 40 mg SQ q 24 hours. 6. Advance directives - Full code
[2018-10-26] MEDS ORDERED: VANCOMYCIN 1 GRAM (PRE-DOCKED) 1,000 MG/250 ML BAG IVPB ONE (20:08)
[2018-10-26] MEDS ORDERED: SENNOSIDES 8.6MG TABLET (FP) PO PRN (21:43)
[2018-10-26] MEDS ORDERED: GABAPENTIN 100 MG CAPSULE (FP) ONE (21:54)
[2018-10-26] MEDS ORDERED: DOXYCYCLINE HYCLATE 100 MG VIAL ONE (21:54)
[2018-10-26] MEDS: BETHANECHOL CHLORIDE 25 MG TABLET PO SCH (21:54)
[2018-10-26] MEDS: ATORVASTATIN CA 20 MG TABLET (FP) PO SCH (21:54)
[2018-10-26] MEDS: GABAPENTIN 100 MG CAPSULE (FP) PO SCH (22:14)
[2018-10-26] MEDS: DOXYCYCLINE INJECTION 100 MG in DEXTROSE 5%-WATER - 100 ML IVPB SCH (22:14)
[2018-10-26] MEDS ORDERED: guaiFENesin/CODEINE 5 ML UNIT-DOSE CUPS PO ONE (22:17)
[2018-10-26] MEDS: guaiFENesin 200 MG/10 ML 10 ML UNIT-DOSE CUPS PO SCH (22:20)
[2018-10-27] MEDS: AZTREONAM 2 GM in DEXTROSE 5%-WATER 100 ML IVPB SCH ×3 (01:35→20:38)
[2018-10-27] MEDS ORDERED: PT OWN MED DRAWER 7, Y5N ONE (01:37)
[2018-10-27] MEDS ORDERED: AZTREONAM 1 GM in DEXTROSE 5%-WATER - 50 ML IVPB SCH (02:00)
[2018-10-27 04:56] VITALS: BMI 21.7
[2018-10-27] MEDS: guaiFENesin 200 MG/10 ML 10 ML UNIT-DOSE CUPS PO SCH ×3 (05:44→23:00)
[2018-10-27] MEDS: BETHANECHOL CHLORIDE 25 MG TABLET PO SCH ×3 (05:45→23:01)
[2018-10-27 08:03] LABS: BASO % 0.3 % (0-2.0); EOS % 1.8 % (0-4.5); HEMATOCRIT 33.1 % (32.4-45.2); LYMPH % 17.3 % (8-40); MCH 30.1 pg (25.7-33.7); MCHC 33.2 g/dl (32.0-36.0); MEAN CELL VOLUME 90.5 fl (80-96); MEAN PLT VOLUME 7.8 fl (7.5-11.1); MONO % 6.3 % (3.8-10.2); NEUT % 74.3 % (42.8-82.8); PLATELET COUNT 493 K/MM3 (134-434); RBC 3.66 M/mm3 (3.60-5.2); RDW 14.1 % (11.6-15.6); WHITE BLOOD COUNT 8.4 K/mm3 (4.0-10.0)
[2018-10-27 08:37] LABS: ALBUMIN 2.4 g/dl (3.4-5.0); ALK PHOS 59 U/L (45-117); ANION GAP 7 MMOL/L (8-16); BILIRUBIN,TOTAL 0.5 mg/dL (0.2-1); BLOOD UREA NITROGEN 16 mg/dL (7-18); CALCIUM 8.8 mg/dL (8.5-10.1); CHLORIDE 102 mmol/L (98-107); CO2 23 mmol/L (21-32); CREATININE 0.6 mg/dL (0.55-1.3); GLUCOSE,RANDOM 96 mg/dL (74-106); MAGNESIUM 1.9 mg/dL (1.8-2.4); N-TERMINAL BNP 3387.6 pg/ml (5-450); PHOSPHOROUS 3.9 mg/dL (2.5-4.9); POTASSIUM 4.9 mmol/L (3.5-5.1); SGOT/AST 13 U/L (15-37); SGPT/ALT 15 U/L (13-61); SODIUM 131 mmol/L (136-145); TOT PROT 6.9 g/dl (6.4-8.2)
[2018-10-27 08:52] LABS: INR 1.05 (0.83-1.09); PROTHROMBIN TIME (PATIENT) 12.4 SEC (9.7-13.0)
[2018-10-27 08:54] LABS: ACTIVATED PTT 32.7 SECONDS (25.2-36.5)
[2018-10-27] MEDS: VALSARTAN 160 MG TABLET (UD) PO SCH (09:56)
[2018-10-27] MEDS: ENOXAPARIN NA (PORCINE) 40 MG/0.4 ML DISP.SYRIN SQ SCH (09:57)
[2018-10-27] MEDS: POLYETHYLENE GLYCOL 3350 119 GM BTL PO SCH (09:57)
[2018-10-27] MEDS: SODIUM CHLORIDE 1 GM TABLET PO SCH (09:58)
[2018-10-27] MEDS: amLODIPine BESYLATE 10 MG TABLET (FP) PO SCH (09:58)
[2018-10-27] MEDS: CLOPIDOGREL BISULFATE 75 MG TABLET (FP) PO SCH (09:59)
--- NOTE | 2018-10-27 09:59 | EKG ---
Test Reason : Blood Pressure : / mmHG Vent. Rate : 077 BPM Atrial Rate : 041 BPM P-R Int : 000 ms QRS Dur : 088 ms QT Int : 438 ms P-R-T Axes : 000 -21 084 degrees QTc Int : 495 ms ATRIAL FIBRILLATION WITH PREMATURE VENTRICULAR OR ABERRANTLY CONDUCTED COMPLEXES CANNOT RULE OUT ANTERIOR INFARCT , AGE UNDETERMINED ABNORMAL ECG WHEN COMPARED WITH ECG OF 13-OCT-2018 12:43, ATRIAL FIBRILLATION HAS REPLACED SINUS RHYTHM Confirmed by JEREMI YANG, ADEEL ([id number]) on 10/27/2018 9:59:07 AM Referred By: Confirmed By:ADEEL BLOOD MD
[2018-10-27] MEDS: DOXYCYCLINE INJECTION 100 MG in DEXTROSE 5%-WATER - 100 ML IVPB SCH ×2 (10:00→23:02)
--- NOTE | 2018-10-27 10:36 | CON.PULM ---
Consult Consult Specialty:: PULM/CCM Referred by:: Hospitalist Reason for Consultation:: PNA - History of Present Illness Chief Complaint: SOB History of Present Illness: 83 F, Afib, scleroderma, Raynaud's, ILD noted on CT imaging from 2013. Admitted to [facility] for 1 week and then sent for rehab. Was discharged home. No history immunsuppressive agents or chronic steroids. Admitted via the ER due to 1 week of worsening cough productive of dark yellow sputum. No hemoptysis. No travel history or sick contacts. CT imaging in 2013 revealed somewhat diffuse ILD most predominant in the bases. New CT reveals either progression of that process or new pneumonic infiltrates. - History Source History Provided By: Patient Limitations to Obtaining History: No Limitations - Past Medical History Cardio/Vascular: Yes: AFIB (paroxysmal, not a candidate for anticoagulation due to frequent falls.), HTN, Hyperlipdemia Pulmonary: Yes: Bronchitis, COPD, Pneumonia, Pulmonary Fibrosis. No: Asthma, O2 Dependent, Previously Intubated, Pulmonary Embolus, Sleep Apnea ...: No Rheumatology: Yes: Other (scleroderma, Raynauds syndrome) Additional Medical History: Anxiety. Hyponatremia. MGUS - Alcohol/Substance Use Hx Alcohol Use: No - Smoking History Smoking history: Never smoked Have you smoked in the past 12 months: No Aproximately how many cigarettes per day: 0 - Social History Usual Living Arrangement: With Spouse ADL: Family Assistance Home Medications - Allergies Allergies/Adverse Reactions: Allergies Allergy/AdvReac Type Severity Reaction Status Date / Time aspirin Allergy Swelling Verified 10/26/18 16:45 cephalexin [From Keflex] Allergy Verified 10/26/18 16:45 ciprofloxacin [From Cipro] Allergy Swelling Verified 10/26/18 16:45 ciprofloxacin HCl Allergy Swelling Verified 10/26/18 16:45 [From Cipro] Penicillins Allergy Swelling Verified 10/26/18 16:45 Quinolones Allergy Verified 10/26/18 16:45 - Home Medications Home Medications: Ambulatory Orders Amlodipine Besylate [Norvasc -] 10 mg PO DAILY 10/13/18 Cholecalciferol (Vitamin D3) [Vitamin D3] 1,000 unit PO DAILY 10/13/18 Clopidogrel Bisulfate [Plavix] 75 mg PO DAILY 10/13/18 Metoprolol Succinate [Toprol Xl] 50 mg PO DAILY 10/13/18 Pravastatin Sodium [Pravachol -] 80 mg PO HS 10/13/18 Sodium Chloride Tablet - 1 gm PO DAILY 10/13/18 Valsartan 320 mg PO DAILY 10/13/18 Bethanechol Chloride [Bethanechol Chloride -] 25 mg PO TID tablet 10/21/18 Gabapentin [Neurontin -] 100 mg PO HS capsule 10/21/18 Polyethylene Glycol 3350 [Miralax 119 gm Btl -] 17 gm PO DAILY bottle 10/21/18 Sennosides [Senna -] 2 tab PO HS PRN tablet 10/21/18 Azithromycin 500 mg PO DAILY 10/26/18 Guaifenesin 100 mg PO TID 10/26/18 Review of Systems - Review of Systems Constitutional: reports: Lethargy, Malaise. denies: Chills, Fever, Night Sweats , Unintentional Wgt. Loss Eyes: reports: No Symptoms HENT: reports: No Symptoms Neck: reports: No Symptoms Cardiovascular: reports: Shortness of Breath. denies: Chest Pain, Edema, Palpitations Respiratory: reports: Cough, SOB, SOB on Exertion. denies: Hemoptysis, Snoring , Wheezing Gastrointestinal: reports: No Symptoms Genitourinary: reports: No Symptoms Breasts: reports: No Symptoms Reported Musculoskeletal: reports: Back Pain, Joint Pain Integumentary: reports: No Symptoms Neurological: reports: No Symptoms Endocrine: reports: No Symptoms Hematology/Lymphatic: reports: No Symptoms Psychiatric: reports: No Symptoms Physical Exam Vital Sings: Vital Signs Temperature 97.6 F 10/27/18 05:25 Pulse Rate 74 10/27/18 05:25 Respiratory Rate 18 10/27/18 05:25 Blood Pressure 130/54 L 10/27/18 05:25 O2 Sat by Pulse Oximetry (%) 95 10/27/18 00:30 Constitutional: Yes: No Distress, Calm Eyes: Yes: Conjunctiva Clear, EOM Intact HENT: Yes: Atraumatic, Normocephalic Neck: Yes: Supple, Trachea Midline Cardiovascular: Yes: Pulse Irregular Respiratory: Yes: Cough, Diminished, On Nasal O2, Rales, Rhonchi, SOB on Exertion. No: Accessory Muscle Use, Stridor, Tachypnea, Wheezes ...Inspection: Yes: WNL ...Clubbing: No Gastrointestinal: Yes: Normal Bowel Sounds, Soft Renal/: Yes: WNL Musculoskeletal: Yes: Joint Stiffness, Other (chronic changes ) Edema: No Peripheral Pulses WNL: Yes Integumentary: Yes: WNL Neurological: Yes: WNL, Alert, Oriented ...Motor Strength: WNL Psychiatric: Yes: WNL, Alert, Oriented Labs: CBC, BMP 10/27/18 07:15 10/27/18 07:15 Imaging - Results Chest X-ray: Report Reviewed, Image Reviewed Cat Scan: Report Reviewed, Image Reviewed Problem List - Problems (1) Atrial fibrillation Code(s): I48.91 - UNSPECIFIED ATRIAL FIBRILLATION Qualifiers: Atrial fibrillation type: chronic Qualified Code(s): I48.2 - Chronic atrial fibrillation (2) Pneumonia Code(s): J18.9 - PNEUMONIA, UNSPECIFIED ORGANISM Qualifiers: Pneumonia type: due to unspecified organism Laterality: unspecified laterality Lung location: unspecified part of lung Qualified Code(s): J18.9 - Pneumonia, unspecified organism (3) Scleroderma Code(s): M34.9 - SYSTEMIC SCLEROSIS, UNSPECIFIED (4) HLD (hyperlipidemia) Code(s): E78.5 - HYPERLIPIDEMIA, UNSPECIFIED (5) HTN (hypertension) Code(s): I10 - ESSENTIAL (PRIMARY) HYPERTENSION Assessment/Plan Check sputum Check urine antigen Daily Medrol ABX per ID O2 as needed AC Will need followup imaging and PFTs in about 6 weeks Will follow Thank you. Dr Sultana
[2018-10-27] MEDS ORDERED: VANCOMYCIN 1,000 MG in DEXTROSE 5%-WATER - 250 ML IVPB ONE (12:00)
--- NOTE | 2018-10-27 14:44 | PN ---
Teaching Attending Note Name of Resident: Zulma Sánchez ATTENDING PHYSICIAN STATEMENT I saw and evaluated the patient. I reviewed the resident's note and discussed the case with the resident. I agree with the resident's findings and plan as documented with exceptions below. SUBJECTIVE: Patient seen and examined. breathing improved. No new leg pain or concerns. No new complaints. OBJECTIVE: Vital Signs Period Temp Pulse Resp BP Sys/Stewart Pulse Ox Last 24 Hr 97.2 F-98.9 F 71-88 16-20 120-138/48-82 94-96 Intake & Output 10/24/18 10/25/18 10/26/18 10/27/18 23:59 23:59 23:59 23:59 Intake Total 700 Balance 700 Weight 130 lb 126 lb 6 oz General sitting in bed in no acute distress Chest: fine basilar rales no wheezing, decreased air entry Abdomen:Soft, NT, ND, no CVA or suprapubic tenderness Extremities: chronic bilateral lower extemity skin changes with venous stasis, no new swelling/erythema or tenderness noted Home Medications Medication Instructions Recorded Amlodipine Besylate [Norvasc -] 10 mg PO DAILY 10/13/18 Cholecalciferol (Vitamin D3) 1,000 unit PO DAILY 10/13/18 [Vitamin D3] Clopidogrel Bisulfate [Plavix] 75 mg PO DAILY 10/13/18 Metoprolol Succinate [Toprol Xl] 50 mg PO DAILY 10/13/18 Pravastatin Sodium [Pravachol -] 80 mg PO HS 10/13/18 Sodium Chloride Tablet - 1 gm PO DAILY 10/13/18 Valsartan 320 mg PO DAILY 10/13/18 Bethanechol Chloride [Bethanechol 25 mg PO TID tablet 10/21/18 Chloride -] Gabapentin [Neurontin -] 100 mg PO HS capsule 10/21/18 Polyethylene Glycol 3350 [Miralax 17 gm PO DAILY bottle 10/21/18 119 gm Btl -] Sennosides [Senna -] 2 tab PO HS PRN tablet 10/21/18 Azithromycin 500 mg PO DAILY 10/26/18 Guaifenesin 100 mg PO TID 10/26/18 Active Medications Amlodipine Besylate (Norvasc -) 10 mg PO DAILY [facility] Last Admin: 10/27/18 09:58 Dose: Not Given Atorvastatin Calcium (Lipitor -) 20 mg PO HS [facility] Last Admin: 10/26/18 21:54 Dose: Not Given Bethanechol Chloride (Urecholine -) 25 mg PO TID [facility] Last Admin: 10/27/18 13:23 Dose: 25 mg Clopidogrel Bisulfate (Plavix -) 75 mg PO DAILY [facility] Last Admin: 10/27/18 09:59 Dose: 75 mg Enoxaparin Sodium (Lovenox -) 40 mg SQ DAILY [facility] Last Admin: 10/27/18 09:57 Dose: 40 mg Gabapentin (Neurontin -) 100 mg PO HS [facility] Last Admin: 10/26/18 22:14 Dose: 100 mg Guaifenesin (Robitussin -) 5 ml PO TID [facility] Last Admin: 10/27/18 13:22 Dose: 5 ml Doxycycline Hyclate 100 mg/ (Dextrose) 100 mls @ 100 mls/hr IVPB BID [facility] Last Admin: 10/27/18 10:00 Dose: 100 mls/hr Aztreonam 2 gm/ Dextrose 100 mls @ 100 mls/hr IVPB Q8H-IV [facility]; Protocol Metoprolol Succinate (Toprol Xl -) 50 mg PO DAILY [facility] Last Admin: 10/27/18 11:18 Dose: Not Given Pantoprazole Sodium (Protonix Iv) 40 mg IVPUSH DAILY [facility] Polyethylene Glycol (Miralax (For Daily Use) -) 17 gm PO DAILY [facility] Last Admin: 10/27/18 09:57 Dose: Not Given Senna (Senna -) 2 tab PO HS PRN PRN Reason: CONSTIPATION Sodium Chloride (Sodium Chloride Tablet -) 1 gm PO DAILY [facility] Last Admin: 10/27/18 09:58 Dose: 1 gm Valsartan (Diovan -) 320 mg PO DAILY [facility] Last Admin: 10/27/18 09:56 Dose: Not Given Laboratory Results - last 24 hr 10/26/18 10/26/18 10/26/18 17:29 17:30 17:30 WBC 9.6 RBC 3.42 L Hgb 10.6 L Hct 31.3 L MCV 91.3 MCH 31.0 MCHC 34.0 RDW 13.8 Plt Count 508 H D MPV 7.6 Absolute Neuts (auto) Neutrophils % Lymphocytes % Monocytes % Eosinophils % Basophils % Nucleated RBC % PT with INR INR PTT (Actin FS) Sodium 130 L Potassium 4.7 Chloride 101 Carbon Dioxide 22 Anion Gap 7 L BUN 20 H Creatinine 0.7 Creat Clearance w eGFR 79.72 Random Glucose 106 Calcium 8.4 L Phosphorus Magnesium Total Bilirubin 0.2 AST 18 ALT 18 Alkaline Phosphatase 66 Troponin I B-Natriuretic Peptide Total Protein 7.1 Albumin 2.6 L Influenza A (Rapid) Negative Influenza B (Rapid) Negative 10/26/18 10/27/18 10/27/18 17:30 07:15 07:15 WBC 8.4 RBC 3.66 Hgb 11.0 Hct 33.1 MCV 90.5 MCH 30.1 MCHC 33.2 RDW 14.1 Plt Count 493 H MPV 7.8 Absolute Neuts (auto) 6.3 Neutrophils % 74.3 Lymphocytes % 17.3 D Monocytes % 6.3 Eosinophils % 1.8 D Basophils % 0.3 Nucleated RBC % 0 PT with INR 12.40 INR 1.05 PTT (Actin FS) 32.7 Sodium Potassium Chloride Carbon Dioxide Anion Gap BUN Creatinine Creat Clearance w eGFR Random Glucose Calcium Phosphorus Magnesium Total Bilirubin AST ALT Alkaline Phosphatase Troponin I < 0.02 B-Natriuretic Peptide Total Protein Albumin Influenza A (Rapid) Influenza B (Rapid) 10/27/18 07:15 WBC RBC Hgb Hct MCV MCH MCHC RDW Plt Count MPV Absolute Neuts (auto) Neutrophils % Lymphocytes % Monocytes % Eosinophils % Basophils % Nucleated RBC % PT with INR INR PTT (Actin FS) Sodium 131 L Potassium 4.9 Chloride 102 Carbon Dioxide 23 Anion Gap 7 L BUN 16 Creatinine 0.6 Creat Clearance w eGFR 95.24 Random Glucose 96 Calcium 8.8 Phosphorus 3.9 Magnesium 1.9 Total Bilirubin 0.5 AST 13 L ALT 15 Alkaline Phosphatase 59 Troponin I B-Natriuretic Peptide 3387.6 H Total Protein 6.9 Albumin 2.4 L Influenza A (Rapid) Influenza B (Rapid) ASSESSMENT AND PLAN: 83 yof with PMhx of Scleroderma, Atrial fibrillation, not on AC but on plavix, raynaud's phenomenon, ILD on imaging in 2012Chronic hyponatremia/SIADH, HTN, HLD , OA, recurrent stasis ulcer RLE since 02/2018 being followed at wound care ( With Dr. Hernández and Dr. Austin), recently admitted to [facility] for RLE cellulitis, admitted with dyspnea/cough, found with RLL PNA and ILD -RLL HCAP -?Acute pneumonitis -Interstitial lung disease/Pulmonary fibrosis (noted on imaging dating back to 2012), ?From scleroderma -Esophageal thickening, ?esophagitis vs from scleroderma -Acute urinary retention -Afrib not on AC but on plavix -Raynaud's phenomenon -Chronic hyponatremia/SIADH -HTN -HLD -OA -Recurrent stasis ulcer RLE Plan: CT chest result and images reviewed ILD findings On CT dating back 2012. Pulmnary input noted. Add solumedrol 40 mg IV daily for now. Aztreonam/Doxycycline. S/p vancomycin. ID consulted, follow up recs. Follow up blood cx/urine PNA studies. sputum cx as available. Add protonix IV. Evidence of urinary retention (Noted on recent admission) [place]. Outpatient urology follow up. Continue plavix/metoprolol/amlodipine/ARB/statin DVTPPX heparin Dispo pending clinical improvement. PT eval when medical issues improve. May need SNF. Discussed with patient and nursing .
[2018-10-27] MEDS ORDERED: VANCOMYCIN 1 GM PREMIX - 1 GM/200 ML BAG IVPB SCH (15:30)
--- NOTE | 2018-10-27 15:30 | PN ---
Progress Note (short form) - Note Progress Note: ID CONSULT DICTATED R/O HCAP SCLERODERMA LUNG MULTIPLE ANTIBIOTIC ALLERGIES PROLONGED QT AWAIT CULTURES EMPIRIC VANCOMYCIN/ AZTREONAM/ DOXY
[2018-10-27] MEDS: PANTOPRAZOLE SODIUM 40 MG VIAL IVPUSH SCH (15:46)
[2018-10-27] MEDS: methylPREDNISolone NA SUCC 40 MG/1 ML VIAL IVPUSH SCH (15:48)
--- NOTE | 2018-10-27 15:53 | PN ---
Physical Exam: SUBJECTIVE: Patient seen and examined; very comfortable; pleasant ; no complaints; "loves it here" OBJECTIVE: Vital Signs Period Temp Pulse Resp BP Sys/Stewart Pulse Ox Last 24 Hr 97.2 F-98.9 F 71-88 16-20 120-138/48-82 94-96 GENERAL: The patient is awake, alert, and fully oriented, in no acute distress. LUNGS: b/l crackles; rhonchi HEART: Regular rate and rhythm, S1, S2 without murmur, rub or gallop. ABDOMEN: Soft, nontender, nondistended, normoactive bowel sounds, no guarding, no rebound, no hepatosplenomegaly, no masses. EXTREMITIES: 2+ pulses, warm, well-perfused, no edema. NEUROLOGICAL: Cranial nerves II through XII grossly intact. Normal speech, gait not observed. PSYCH: Normal mood, normal affect. SKIN: Warm, dry, normal turgor, no rashes or lesions noted Laboratory Results - last 24 hr 10/26/18 10/26/18 10/26/18 17:29 17:30 17:30 WBC 9.6 RBC 3.42 L Hgb 10.6 L Hct 31.3 L MCV 91.3 MCH 31.0 MCHC 34.0 RDW 13.8 Plt Count 508 H D MPV 7.6 Absolute Neuts (auto) Neutrophils % Lymphocytes % Monocytes % Eosinophils % Basophils % Nucleated RBC % PT with INR INR PTT (Actin FS) Sodium 130 L Potassium 4.7 Chloride 101 Carbon Dioxide 22 Anion Gap 7 L BUN 20 H Creatinine 0.7 Creat Clearance w eGFR 79.72 Random Glucose 106 Calcium 8.4 L Phosphorus Magnesium Total Bilirubin 0.2 AST 18 ALT 18 Alkaline Phosphatase 66 Troponin I B-Natriuretic Peptide Total Protein 7.1 Albumin 2.6 L Influenza A (Rapid) Negative Influenza B (Rapid) Negative 10/26/18 10/27/18 10/27/18 17:30 07:15 07:15 WBC 8.4 RBC 3.66 Hgb 11.0 Hct 33.1 MCV 90.5 MCH 30.1 MCHC 33.2 RDW 14.1 Plt Count 493 H MPV 7.8 Absolute Neuts (auto) 6.3 Neutrophils % 74.3 Lymphocytes % 17.3 D Monocytes % 6.3 Eosinophils % 1.8 D Basophils % 0.3 Nucleated RBC % 0 PT with INR 12.40 INR 1.05 PTT (Actin FS) 32.7 Sodium Potassium Chloride Carbon Dioxide Anion Gap BUN Creatinine Creat Clearance w eGFR Random Glucose Calcium Phosphorus Magnesium Total Bilirubin AST ALT Alkaline Phosphatase Troponin I < 0.02 B-Natriuretic Peptide Total Protein Albumin Influenza A (Rapid) Influenza B (Rapid) 10/27/18 07:15 WBC RBC Hgb Hct MCV MCH MCHC RDW Plt Count MPV Absolute Neuts (auto) Neutrophils % Lymphocytes % Monocytes % Eosinophils % Basophils % Nucleated RBC % PT with INR INR PTT (Actin FS) Sodium 131 L Potassium 4.9 Chloride 102 Carbon Dioxide 23 Anion Gap 7 L BUN 16 Creatinine 0.6 Creat Clearance w eGFR 95.24 Random Glucose 96 Calcium 8.8 Phosphorus 3.9 Magnesium 1.9 Total Bilirubin 0.5 AST 13 L ALT 15 Alkaline Phosphatase 59 Troponin I B-Natriuretic Peptide 3387.6 H Total Protein 6.9 Albumin 2.4 L Influenza A (Rapid) Influenza B (Rapid) Active Medications Generic Name Dose Route Start Last Admin Trade Name Freq PRN Reason Stop Dose Admin Amlodipine Besylate 10 mg 10/27/18 10:00 10/27/18 09:58 Norvasc - PO Not Given DAILY ALANNA Atorvastatin Calcium 20 mg 10/26/18 22:00 10/26/18 21:54 Lipitor - PO Not Given HS ALANNA Bethanechol Chloride 25 mg 10/26/18 22:00 10/27/18 13:23 Urecholine - PO 25 mg TID ALANNA Administration Clopidogrel Bisulfate 75 mg 10/27/18 10:00 10/27/18 09:59 Plavix - PO 75 mg DAILY ALANNA Administration Enoxaparin Sodium 40 mg 10/27/18 10:00 10/27/18 09:57 Lovenox - SQ 40 mg DAILY ALANNA Administration Gabapentin 100 mg 10/26/18 22:00 10/26/18 22:14 Neurontin - PO 100 mg HS ALANNA Administration Guaifenesin 5 ml 10/26/18 22:00 10/27/18 13:22 Robitussin - PO 5 ml TID ALANNA Administration Doxycycline Hyclate 100 mg/ 100 mls @ 100 mls/hr 10/26/18 22:00 10/27/18 10: 00 Dextrose IVPB 100 mls/hr BID ALANNA Administration Aztreonam 1 gm/ Dextrose 50 mls @ 100 mls/hr 10/27/18 18:00 IVPB Q8H-IV ALANNA Protocol Vancomycin HCl 1 gm in 200 mls @ 133.333 mls/hr 10/27/18 15:30 Vancomycin 1 Gm Premix - IVPB Q12H [facility]ANNA Protocol Methylprednisolone Sodium Succinate 40 mg 10/27/18 15:15 Solu-Medrol - IVPUSH DAILY ALANNA Metoprolol Succinate 50 mg 10/27/18 10:00 10/27/18 11:18 Toprol Xl - PO Not Given DAILY ALANNA Pantoprazole Sodium 40 mg 10/27/18 14:45 10/27/18 15:46 Protonix Iv IVPUSH 40 mg DAILY [facility]ANNA Administration Polyethylene Glycol 17 gm 10/27/18 10:00 10/27/18 09:57 Miralax (For Daily Use) - PO Not Given DAILY ALANNA Senna 2 tab 10/26/18 21:43 Senna - PO HS PRN CONSTIPATION Sodium Chloride 1 gm 10/27/18 10:00 10/27/18 09:58 Sodium Chloride Tablet - PO 1 gm DAILY ALANNA Administration Valsartan 320 mg 10/27/18 10:00 10/27/18 09:56 Diovan - PO Not Given DAILY ALANNA ASSESSMENT/PLAN: This is a 83 year old female with a history of scleroderma, pulm fibrosis, atrial fibrillation not on AC, Raynauds, SIADH, recent RLE cellulitis, s/p rehab ; found to be sob at rehab, here for PNA. #HCAP -IV antibiotics Aztreonam/Doxycycline -urine pna -sputm cx -ID /pulm following #Pulm fibrosis;scleroderma -CT noted; progressive vs from PNA; -cont IV antibitocs; -outpatient repeat CT and pulm function testing -cont steroids #afib; not on AC; on plavix #SIADH; chronic; stable on salt tabs #HTN: stable #HLD: stable VTE: ppl heparinsq GI : protonix Visit type - Emergency Visit Emergency Visit: Yes ED Registration Date: 10/26/18 Care time: The patient presented to the Emergency Department on the above date and was hospitalized for further evaluation of their emergent condition. - New Patient This patient is new to me today: Yes Date on this admission: 10/27/18 - Critical Care Critical Care patient: No
[2018-10-27 16:44] LABS: URINE APPEARANCE CLEAR; URINE BILIRUBIN NEGATIVE (NEGATIVE); URINE COLOR YELLOW; URINE GLUCOSE (UA) NEGATIVE (NEGATIVE); URINE KETONE NEGATIVE (NEGATIVE); URINE LEUK ESTERASE NEGATIVE (NEGATIVE); URINE NITRITE NEGATIVE (NEGATIVE); URINE PROTEIN NEGATIVE (NEGATIVE); URINE UROBILINOGEN 0.2 mg/dL (0.2-1.0)
--- NOTE | 2018-10-27 17:00 | CONS ---
DATE OF CONSULTATION: DATE OF DICTATION: 10/27/2018 HISTORY OF PRESENT ILLNESS: The patient is an 83-year-old female with a history of scleroderma, Raynaud phenomenon, recent admission for cellulitis of the right lower extremity, now he is evaluated for pneumonia. The patient was recently hospitalized at [facility] from October 13 through October 21. She was treated for cellulitis of the right calf. Wound cultures were positive for proteus. She received a course of vancomycin and Azactam and was transferred to a group home facility. At the facility, she developed a cough which she reports was productive of sputum as well as shortness of breath. She was found on chest x-ray to have a pneumonia and was referred for admission. On admission patient's chest x-ray shows increased markings at the right base. CAT scan shows bilateral pleural effusions with honeycomb appearing infiltrates in the bases bilaterally right greater than left. She denies any chest pain or hemoptysis. She has been afebrile with a normal white blood cell count. She has a longstanding history of scleroderma dating back approximately 25 years. She denies being steroid depending or on any immunosuppressive therapy. So she denies any ill contacts. She is a nonsmoker. No recent travels. She is up to date with respect to pneumococcal influenza vaccines. She has a history of multiple antibiotic allergies. PAST MEDICAL HISTORY: Positive for scleroderma, Raynaud phenomenon, atrial fibrillation, hypertension, hyperlipidemia, recent cellulitis of the right leg. PAST SURGICAL HISTORY: Status post appendectomy and toe amputation. ALLERGIES: PENICILLIN, CEPHALEXIN, and FLUOROQUINOLONES, ASPIRIN. Patient reports developing throat swelling with PENICILLIN and a bad rash with QUINOLONES. She has tolerated Azactam in the past. MEDICATION: Norvasc, Plavix, Toprol, Pravachol, valsartan, Neurontin. SOCIAL HISTORY: Lives at home. Nonsmoker. Nondrinker. SYSTEMS REVIEW: Neurologic: No loss of consciousness, seizure activity, focal weakness. Cardiac: Negative for chest pain or palpitations. Respiratory: As per HPI. Gastrointestinal: Negative vomiting or diarrhea. Genitourinary: Positive for urinary retention. LABORATORY DATA: White count 8.4, 74 neutrophils, 17 lymphocytes, 6 monocytes, 1 eosinophil, hematocrit 33.1, platelets 493, BUN 16, creatinine 0.6, influenza swab negative. Cultures are pending. Liver enzymes normal. BNP 3387. PHYSICAL EXAMINATION: General: On exam, she is awake, she is coughing, slightly dyspneic at rest. Vital signs: Temperature 97.9, blood pressure 130/48, pulse 71 regular, respirations 18 per minute. HEENT: Sclerae anicteric. Cardiovascular: Heart sounds irregular S1, S2. Lungs: Crepitations both lung mejia bilaterally. Abdomen: Soft, nontender. Extremities: Positive for peripheral cyanosis and thickening of the skin over the digits of the distal extremities. IMPRESSION: 1. Rule out healthcare-acquired pneumonia. 2. Scleroderma lung. 3. Multiple ANTIBIOTIC allergies. 4. Prolonged QT interval. RECOMMENDATION: Would treat for possible hospital acquired pathogens in this patient with multiple antibiotics allergies with VANCOMYCIN and AZTREONAM. Continue doxycycline for coverage of atypical pathogens in this patient with a prolonged QT interval. Pulmonary evaluation and followup. Would obtain rheumatology evaluation. Will follow. Thank you for the kind referral. SAEED NEFF M.D. [id number]
[2018-10-27] MEDS: AZTREONAM 1 GM in DEXTROSE 5%-WATER - 50 ML IVPB SCH (18:12)
[2018-10-27] MEDS: GABAPENTIN 100 MG CAPSULE (FP) PO SCH (23:01)
[2018-10-27] MEDS: ATORVASTATIN CA 20 MG TABLET (FP) PO SCH (23:01)
[2018-10-28] MEDS: VANCOMYCIN 1 GM PREMIX - 1 GM/200 ML BAG IVPB SCH ×3 (00:58→23:59)
[2018-10-28] MEDS: AZTREONAM 1 GM in DEXTROSE 5%-WATER - 50 ML IVPB SCH ×3 (02:32→17:05)
[2018-10-28] MEDS: guaiFENesin 200 MG/10 ML 10 ML UNIT-DOSE CUPS PO SCH ×3 (05:22→21:26)
[2018-10-28] MEDS: BETHANECHOL CHLORIDE 25 MG TABLET PO SCH ×3 (05:22→21:27)
[2018-10-28 07:25] LABS: BASO % 0.1 % (0-2.0); HEMOGLOBIN 11.6 GM/dL (10.7-15.3); MCH 31.2 pg (25.7-33.7); MCHC 34.2 g/dl (32.0-36.0); MEAN CELL VOLUME 91.4 fl (80-96); MEAN PLT VOLUME 7.8 fl (7.5-11.1); MONO % 1.5 % (3.8-10.2); NEUT % 81.4 % (42.8-82.8); PLATELET COUNT 523 K/MM3 (134-434); RBC 3.73 M/mm3 (3.60-5.2); RDW 13.8 % (11.6-15.6); WHITE BLOOD COUNT 5.2 K/mm3 (4.0-10.0)
[2018-10-28 08:49] LABS: ANION GAP 8 MMOL/L (8-16); BLOOD UREA NITROGEN 14 mg/dL (7-18); CALCIUM 8.8 mg/dL (8.5-10.1); CHLORIDE 103 mmol/L (98-107); CO2 21 mmol/L (21-32); CREATININE 0.6 mg/dL (0.55-1.3); GLUCOSE,RANDOM 122 mg/dL (74-106); POTASSIUM 4.9 mmol/L (3.5-5.1); SODIUM 132 mmol/L (136-145)
[2018-10-28] MEDS: DOXYCYCLINE INJECTION 100 MG in DEXTROSE 5%-WATER - 100 ML IVPB SCH ×2 (09:15→21:27)
[2018-10-28] MEDS: PANTOPRAZOLE SODIUM 40 MG VIAL IVPUSH SCH (09:16)
[2018-10-28] MEDS: methylPREDNISolone NA SUCC 40 MG/1 ML VIAL IVPUSH SCH (09:17)
[2018-10-28] MEDS: SODIUM CHLORIDE 1 GM TABLET PO SCH (09:18)
[2018-10-28] MEDS: CLOPIDOGREL BISULFATE 75 MG TABLET (FP) PO SCH (09:18)
[2018-10-28] MEDS: amLODIPine BESYLATE 10 MG TABLET (FP) PO SCH (09:18)
[2018-10-28] MEDS: POLYETHYLENE GLYCOL 3350 119 GM BTL PO SCH (09:19)
[2018-10-28] MEDS: ENOXAPARIN NA (PORCINE) 40 MG/0.4 ML DISP.SYRIN SQ SCH (09:19)
[2018-10-28] MEDS: VALSARTAN 160 MG TABLET (UD) PO SCH (09:19)
--- NOTE | 2018-10-28 10:34 | PN ---
Progress Note (short form) - Note Progress Note: Resting in NAD on RA. Congested cough persists. No hemoptysis. No acute events overnight. Intake & Output 10/25/18 10/26/18 10/27/18 10/28/18 23:59 23:59 23:59 23:59 Intake Total 1600 500 Output Total 2600 Balance -1000 500 Weight 130 lb 126 lb 6 oz Last Vital Signs Temp Pulse Resp BP Pulse Ox 97.3 F L 68 19 146/61 95 10/28/18 05:00 10/28/18 05:00 10/28/18 05:00 10/28/18 05:00 10/27/18 21:00 Active Medications Amlodipine Besylate (Norvasc -) 10 mg PO DAILY [facility] Last Admin: 10/28/18 09:18 Dose: 10 mg Atorvastatin Calcium (Lipitor -) 20 mg PO HS [facility] Last Admin: 10/27/18 23:01 Dose: 20 mg Bethanechol Chloride (Urecholine -) 25 mg PO TID [facility] Last Admin: 10/28/18 05:22 Dose: 25 mg Clopidogrel Bisulfate (Plavix -) 75 mg PO DAILY [facility] Last Admin: 10/28/18 09:18 Dose: 75 mg Enoxaparin Sodium (Lovenox -) 40 mg SQ DAILY [facility] Last Admin: 10/28/18 09:19 Dose: 40 mg Gabapentin (Neurontin -) 100 mg PO HS [facility] Last Admin: 10/27/18 23:01 Dose: 100 mg Guaifenesin (Robitussin -) 5 ml PO TID [facility] Last Admin: 10/28/18 05:22 Dose: 5 ml Doxycycline Hyclate 100 mg/ (Dextrose) 100 mls @ 100 mls/hr IVPB BID [facility] Last Admin: 10/28/18 09:15 Dose: 100 mls/hr Aztreonam 1 gm/ Dextrose 50 mls @ 100 mls/hr IVPB Q8H-IV [facility]; Protocol Last Admin: 10/28/18 02:32 Dose: 100 mls/hr Vancomycin HCl (Vancomycin 1 Gm Premix -) 1 gm in 200 mls @ 133.333 mls/hr IVPB BID@0000,1200 [facility]; Protocol Last Admin: 10/28/18 00:58 Dose: 133.333 mls/hr Methylprednisolone Sodium Succinate (Solu-Medrol -) 40 mg IVPUSH DAILY [facility] Last Admin: 10/28/18 09:17 Dose: 40 mg Metoprolol Succinate (Toprol Xl -) 50 mg PO DAILY [facility] Last Admin: 10/28/18 09:18 Dose: 50 mg Pantoprazole Sodium (Protonix Iv) 40 mg IVPUSH DAILY [facility] Last Admin: 10/28/18 09:16 Dose: 40 mg Polyethylene Glycol (Miralax (For Daily Use) -) 17 gm PO DAILY [facility] Last Admin: 10/28/18 09:19 Dose: Not Given Senna (Senna -) 2 tab PO HS PRN PRN Reason: CONSTIPATION Sodium Chloride (Sodium Chloride Tablet -) 1 gm PO DAILY [facility] Last Admin: 10/28/18 09:18 Dose: 1 gm Valsartan (Diovan -) 320 mg PO DAILY [facility] Last Admin: 10/28/18 09:19 Dose: 320 mg Constitutional: Yes: No Distress, Mildly anxious Eyes: Yes: Conjunctiva Clear, EOM Intact HENT: Yes: Atraumatic, Normocephalic Neck: Yes: Supple, Trachea Midline Cardiovascular: Yes: Pulse Irregular Respiratory: Yes: Cough, Diminished, On Nasal O2, Dry Rales, Rhonchi. No: Accessory Muscle Use, Stridor, Tachypnea, Wheezes ...Inspection: Yes: WNL ...Clubbing: No Gastrointestinal: Yes: Normal Bowel Sounds, Soft Renal/: Yes: WNL Musculoskeletal: Yes: Joint Stiffness, Other (chronic changes ) Edema: No Peripheral Pulses WNL: Yes Integumentary: Yes: WNL Neurological: Yes: WNL, Alert, Oriented ...Motor Strength: WNL Psychiatric: Yes: WNL, Alert, Oriented Labs: Laboratory Results - last 24 hr 10/27/18 10/28/18 10/28/18 15:00 06:30 06:30 WBC 5.2 RBC 3.73 Hgb 11.6 Hct 34.0 MCV 91.4 MCH 31.2 MCHC 34.2 RDW 13.8 Plt Count 523 H MPV 7.8 Absolute Neuts (auto) 4.3 Neutrophils % 81.4 Lymphocytes % 17.0 Monocytes % 1.5 L Eosinophils % 0.0 D Basophils % 0.1 Nucleated RBC % 0 Sodium 132 L Potassium 4.9 Chloride 103 Carbon Dioxide 21 Anion Gap 8 BUN 14 Creatinine 0.6 Creat Clearance w eGFR 95.24 Random Glucose 122 H Calcium 8.8 Urine Color Yellow Urine Appearance Clear Urine pH 5.0 Ur Specific [place] 1.009 L Urine Protein Negative Urine Glucose (UA) Negative Urine Ketones Negative Urine Blood Negative Urine Nitrite Negative Urine Bilirubin Negative Urine Urobilinogen 0.2 Ur Leukocyte Esterase Negative Problem List - Problems (1) Atrial fibrillation Code(s): I48.91 - UNSPECIFIED ATRIAL FIBRILLATION Qualifiers: Atrial fibrillation type: chronic Qualified Code(s): I48.2 - Chronic atrial fibrillation (2) Pneumonia Code(s): J18.9 - PNEUMONIA, UNSPECIFIED ORGANISM Qualifiers: Pneumonia type: due to unspecified organism Laterality: unspecified laterality Lung location: unspecified part of lung Qualified Code(s): J18.9 - Pneumonia, unspecified organism (3) Scleroderma Code(s): M34.9 - SYSTEMIC SCLEROSIS, UNSPECIFIED (4) HLD (hyperlipidemia) Code(s): E78.5 - HYPERLIPIDEMIA, UNSPECIFIED (5) HTN (hypertension) Code(s): I10 - ESSENTIAL (PRIMARY) HYPERTENSION Assessment/Plan Follow sputum Daily Medrol ABX per ID O2 as needed AC Will need followup imaging and PFTs in about [address] Elam in the past: Will call for an evaluation Dr Sultana Problem List - Problems (1) Atrial fibrillation Code(s): I48.91 - UNSPECIFIED ATRIAL FIBRILLATION Qualifiers: Atrial fibrillation type: chronic Qualified Code(s): I48.2 - Chronic atrial fibrillation (2) Pneumonia Code(s): J18.9 - PNEUMONIA, UNSPECIFIED ORGANISM Qualifiers: Pneumonia type: due to unspecified organism Laterality: unspecified laterality Lung location: unspecified part of lung Qualified Code(s): J18.9 - Pneumonia, unspecified organism (3) Scleroderma Code(s): M34.9 - SYSTEMIC SCLEROSIS, UNSPECIFIED (4) HLD (hyperlipidemia) Code(s): E78.5 - HYPERLIPIDEMIA, UNSPECIFIED (5) HTN (hypertension) Code(s): I10 - ESSENTIAL (PRIMARY) HYPERTENSION
--- NOTE | 2018-10-28 10:39 | PN ---
Teaching Attending Note Name of Resident: Zulma Sánchez ATTENDING PHYSICIAN STATEMENT I saw and evaluated the patient. I reviewed the resident's note and discussed the case with the resident. I agree with the resident's findings and plan as documented with exceptions below. SUBJECTIVE: Patient seen and examined. Breathing/cough improved. Anxious about scleroderma "spreading to her lungs". Reports weakness and afraid to get up and walk with assist. OBJECTIVE: Vital Signs Period Temp Pulse Resp BP Sys/Stewart Pulse Ox Last 24 Hr 97.3 F-97.9 F 68-87 18- 124-154/58-73 95 Intake & Output 10/25/18 10/26/18 10/27/18 10/28/18 23:59 23:59 23:59 23:59 Intake Total 1600 500 Output Total 2600 Balance -1000 500 Weight 130 lb 126 lb 6 oz General: sitting in bed in no acute distress Chest: fine bibasilar rales, no wheezing good air entry Abdomen:Soft, NT, ND Extremities: chronic skin changes with hyperpigmentation and venous stasis, no erythema, discharge or tenderness noted Active Medications Amlodipine Besylate (Norvasc -) 10 mg PO DAILY [facility] Last Admin: 10/28/18 09:18 Dose: 10 mg Atorvastatin Calcium (Lipitor -) 20 mg PO [facility] Last Admin: 10/27/18 23:01 Dose: 20 mg Bethanechol Chloride (Urecholine -) 25 mg PO TID [facility] Last Admin: 10/28/18 05:22 Dose: 25 mg Clopidogrel Bisulfate (Plavix -) 75 mg PO DAILY [facility] Last Admin: 10/28/18 09:18 Dose: 75 mg Enoxaparin Sodium (Lovenox -) 40 mg SQ DAILY [facility] Last Admin: 10/28/18 09:19 Dose: 40 mg Gabapentin (Neurontin -) 100 mg PO [facility] Last Admin: 10/27/18 23:01 Dose: 100 mg Guaifenesin (Robitussin -) 5 ml PO TID [facility] Last Admin: 10/28/18 05:22 Dose: 5 ml Doxycycline Hyclate 100 mg/ (Dextrose) 100 mls @ 100 mls/hr IVPB BID [facility] Last Admin: 10/28/18 09:15 Dose: 100 mls/hr Aztreonam 1 gm/ Dextrose 50 mls @ 100 mls/hr IVPB Q8H-IV [facility]; Protocol Last Admin: 10/28/18 02:32 Dose: 100 mls/hr Vancomycin HCl (Vancomycin 1 Gm Premix -) 1 gm in 200 mls @ 133.333 mls/hr IVPB BID@0000,1200 [facility]; Protocol Last Admin: 10/28/18 00:58 Dose: 133.333 mls/hr Methylprednisolone Sodium Succinate (Solu-Medrol -) 40 mg IVPUSH DAILY [facility] Last Admin: 10/28/18 09:17 Dose: 40 mg Metoprolol Succinate (Toprol Xl -) 50 mg PO DAILY [facility] Last Admin: 10/28/18 09:18 Dose: 50 mg Pantoprazole Sodium (Protonix Iv) 40 mg IVPUSH DAILY [facility] Last Admin: 10/28/18 09:16 Dose: 40 mg Polyethylene Glycol (Miralax (For Daily Use) -) 17 gm PO DAILY [facility] Last Admin: 10/28/18 09:19 Dose: Not Given Senna (Senna -) 2 tab PO HS PRN PRN Reason: CONSTIPATION Sodium Chloride (Sodium Chloride Tablet -) 1 gm PO DAILY [facility] Last Admin: 10/28/18 09:18 Dose: 1 gm Valsartan (Diovan -) 320 mg PO DAILY [facility] Last Admin: 10/28/18 09:19 Dose: 320 mg Home Medications Medication Instructions Recorded Amlodipine Besylate [Norvasc -] 10 mg PO DAILY 10/13/18 Cholecalciferol (Vitamin D3) 1,000 unit PO DAILY 10/13/18 [Vitamin D3] Clopidogrel Bisulfate [Plavix] 75 mg PO DAILY 10/13/18 Metoprolol Succinate [Toprol Xl] 50 mg PO DAILY 10/13/18 Pravastatin Sodium [Pravachol -] 80 mg PO HS 10/13/18 Sodium Chloride Tablet - 1 gm PO DAILY 10/13/18 Valsartan 320 mg PO DAILY 10/13/18 Bethanechol Chloride [Bethanechol 25 mg PO TID tablet 10/21/18 Chloride -] Gabapentin [Neurontin -] 100 mg PO HS capsule 10/21/18 Polyethylene Glycol 3350 [Miralax 17 gm PO DAILY bottle 10/21/18 119 gm Btl -] Sennosides [Senna -] 2 tab PO HS PRN tablet 10/21/18 Azithromycin 500 mg PO DAILY 10/26/18 Guaifenesin 100 mg PO TID 10/26/18 ASSESSMENT AND PLAN: 83 yof with PMhx of Scleroderma, Atrial fibrillation, not on AC but on plavix, raynaud's phenomenon, ILD on imaging in 2012Chronic hyponatremia/SIADH, HTN, HLD , OA, recurrent stasis ulcer RLE since 02/2018 being followed at wound care ( With Dr. Hernández and Dr. Austin), recently admitted to [facility] for RLE cellulitis, admitted with dyspnea/cough, found with RLL PNA and ILD -RLL HCAP -?Acute pneumonitis -Interstitial lung disease/Pulmonary fibrosis (noted on imaging dating back to 2012), ?From scleroderma -Esophageal thickening, ?esophagitis vs from scleroderma -Acute urinary retention -Afib not on AC but on plavix -Raynaud's phenomenon -Chronic hyponatremia/SIADH -HTN -HLD -OA -Recurrent stasis ulcer RLE Plan: CT chest result and images reviewed ILD findings On CT dating back 2012. Pulmnary input noted. Solumedrol 40 mg IV daily for now. Aztreonam/Doxycycline/vancomycin da 2. ID input noted. Follow up blood cx/urine PNA studies. sputum cx as available. Rheumatology input Dr. Elam. Esophageal findings noted on CT chest, ?esophagitis vs scleroderma related. Continue PPI. Will need GI follow up outpatient and additional testing including EGD once active respiratory concerns resolved. Speech/swallow input. Evidence of urinary retention (Noted on recent admission) [place]. Continue bethanechol. Outpatient urology follow up. Continue plavix/metoprolol/amlodipine/ARB/statin DVTPPX heparin Dispo pending clinical improvement. PT eval , OOB. May need SNF. Discussed with patient and nursing.
--- NOTE | 2018-10-28 12:12 | ECHO ---
Name: SILAS SANCHEZ Exam:Adult Echocardiogram Study Date: 10/28/2018 09:41 AM Age: 83 yrs Reason For Study: Dyspnea, Assess LV Function Height: 64 in Weight: 126 lb BSA: 1.6 m2 MMode/2D Measurements & Calculations IVSd: 1.3 cm LA dimension: 4.3 cm LVIDd: 2.7 cm ACS: 1.8 cm LVIDs: 2.3 cm LVPWd: 1.5 cm EDV(Teich): 27.8 ml LVOT diam: 1.8 cm ESV(Teich): 18.1 ml Doppler Measurements & Calculations MV E max luke: 163.9 cm/sec MVA(VTI): 1.0 cm2 MV A max luke: 170.0 cm/sec MV V2 max: 172.1 cm/sec MV E/A: 0.96 MV max P.8 mmHg MV V2 mean: 118.1 cm/sec MV mean P.2 mmHg MV V2 VTI: 54.5 cm Ao V2 max: 191.5 cm/sec LV V1 max P.0 mmHg Ao max P.7 mmHg LV V1 mean P.0 mmHg Ao V2 mean: 124.1 cm/sec LV V1 max: 100.1 cm/sec Ao mean P.2 mmHg LV V1 mean: 67.0 cm/sec Ao V2 VTI: 41.9 cm LV V1 VTI: 20.5 cm MAVIS(I,D): 1.3 cm2 MAVIS(V,D): 1.4 cm2 SV(LVOT): 54.7 ml Med Peak E' Luke: 6.3 cm/sec Med E/e': 26.2 Lat Peak E' Luke: 6.5 cm/sec Lat E/e': 25.3 Procedure A two-dimensional transthoracic echocardiogram with color flow and Doppler was performed. The patient was in normal sinus rhythm during the exam. The patient had occasional PVCs during the exam. Left Ventricle There is mild concentric left ventricular hypertrophy. Left ventricular systolic function is normal. Ejection Fraction = 55%. E/A reversal consistent with but not diagnostic of poor LV compliance. Right Ventricle The right ventricle is normal size. The right ventricular systolic function is normal. Atria The left atrium is mildly dilated. Right atrial size is normal. Mitral Valve There is severe mitral annular calcification. Calcified mitral apparatus. Functional mitral valve shalini nosis secondary to MAC. There is mild mitral regurgitation. Tricuspid Valve The tricuspid valve is normal. There is mild tricuspid regurgitation. Aortic Valve There is mild aortic sclerosis.;. Trace aortic regurgitation. Pulmonic Valve The pulmonic valve is not well visualized. The pulmonic valve is not well seen, but is grossly normal . There is no pulmonic valvular regurgitation. Great Vessels The aortic root is not well visualized but is probably normal size. Pericardium/Pleura There is no pericardial effusion. Interpretation Summary There is mild concentric left ventricular hypertrophy. Left ventricular systolic function is normal. E/A reversal consistent with but not diagnostic of poor LV compliance The right ventricular systolic function is normal. The left atrium is mildly dilated. There is severe mitral annular calcification. Calcified mitral apparatus. 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 There is mild tricuspid regurgitation. There is mild aortic sclerosis.; Trace aortic regurgitation. There is no pericardial effusion. MD Dex Chopra 10/28/2018 12:11 PM
--- NOTE | 2018-10-28 13:50 | CONSULT ---
Admitting History and Physical - Primary Care Physician PCP: Mateus Tena - Admission History of Present Illness: This is a 83 year old female with a history of scleroderma, SIADH, raynauds, osteomyelitis, presents with one week history of productive cough admitted for HPNA This is my first consult with this pt. Recent admission for cellulitis, d/c'd to [facility]. Limited ambulation at rehab, mostly in w/c and bed. Reported to be exhausted from tx. History Source: Patient Limitations to Obtaining History: No Limitations - Past Medical History Cardiovascular: Yes: AFIB (paroxysmal, not a candidate for anticoagulation due to frequent falls.), HTN, Hyperlipdemia Pulmonary: Yes: Bronchitis, COPD, Pneumonia, Pulmonary Fibrosis. No: Asthma, O2 Dependent, Previously Intubated, Pulmonary Embolus, Sleep Apnea ...: No Rheumatology: Yes: Other (scleroderma, Raynauds syndrome) - Smoking History Smoking history: Never smoked Have you smoked in the past 12 months: No Aproximately how many cigarettes per day: 0 - Alcohol/Substance Use Hx Alcohol Use: No - Social History ADL: Family Assistance History - Admission Reason For Visit: SYSTEMIC SCLEROSIS/ATRIAL FIBRILLATION/PNEUMONIA - Diagnostics X-ray: Report Reviewed CT Scan: Report Reviewed - General Mental Status: Alert and Oriented, Awake and Alert, Able to Follow Commands Attention: Intact Ability to Follow Directions: Excellent Head/Neck Control: WFL - Hearing Hearing: Normal Speech Evaluation - Communication Primary Language: CROATIAN Communication: Yes: Within Normal Limits Oral Expression Ability: Yes: No Impairment - Speech Production Able to Make Needs Known: Yes: WNL Intelligibility: Yes: WNL - Speech Characteristics Voice Loudness: Normal Voice Pitch: Yes: Normal Voice Phonatory-based Quality: Yes: Normal Speech Pattern: Normal Speech Clarity: < 100% Nasal Resonance: Normal Articulation: Yes: Precise Rate of Speech: Intact - Language/Auditory Comprehension Follows: Yes: 2 Stage Simple Commands - Language/Verbal Expression Able to Respond to Simple Queries: Yes: WNL Able to Communicate Wants and Needs: Yes: WNL Functional Communication Status: Yes: WNL - Memory/Perception prison Memory: Yes: WNL Short Term Memory: Yes: WNL - Swallow Evaluation/Bedside Assessment Current Nutritional Intake: Regular, Thin Liquids Oral Secretions: Yes: WFL Dentition: Yes: Adequate, Missing Teeth Facial Symmetry at Rest: Symmetrical Facial Symmetry on Retraction: Symmetrical Against Resistance Opening: Normal Against Resistance Closing: Normal Pucker Lips: Normal Smile: Normal Lingual Movement: Normal, Symmetric Lingual Speed of Movement: Normal Lingual Movement Strgth Against Opposition: Normal Lingual Movement Characteristics: Normal Velopharyngeal Movement: Normal Laryngeal Elevation: WFL Laryngeal Movement: Able to Palpate Rate of Intake: WFL Bolus Size: WFL Labial Seal: WFL Chewing: WFL Oral Prep Time: WFL A-P Transit: WFL Pocketing: None Timing of Swallow: WFL Coughing/Throat Clear: No Change in Voice: No Recommendations - Speech Evaluation, Impression/Plan Impression: Pt denies difficulty swallowing, food coming back up, coughing with po intake, mostly all the time. Overtly swallowing intact. Pt with Scleroderma x 25 years. Possibility of retrograde aspiration if impaired esophageal emptying with reclining after meals but no clear evidence of this. If aspiration is suspected, MBS/esophagram but may not be neccessary. - Dysphagia Impressions/Plan Dysphagia Impressions: Minimal Impairment *Silent aspiration: cannot be R/O at bedside Dysphagia Treatment Plan: OOB for meals, OOB for 1 h. after meals Recommendations: Modified Barium Swallow (if increased coughing after meals) - Recommendations Diet Consistency: Regular Medication Administration: Whole with water Liquids: Thin Liquids
--- NOTE | 2018-10-28 14:41 | EKG ---
Test Reason : Blood Pressure : / mmHG Vent. Rate : 088 BPM Atrial Rate : 068 BPM P-R Int : 000 ms QRS Dur : 094 ms QT Int : 450 ms P-R-T Axes : 000 -30 059 degrees QTc Int : 544 ms ATRIAL FIBRILLATION WITH PREMATURE VENTRICULAR OR ABERRANTLY CONDUCTED COMPLEXES LEFT AXIS DEVIATION PROLONGED QT ABNORMAL ECG WHEN COMPARED WITH ECG OF 26-OCT-2018 16:12, NO SIGNIFICANT CHANGE WAS FOUND Confirmed by Chaz Dahl ([id number]) on 10/28/2018 2:41:27 PM Referred By: Saskia MARS Confirmed By:Chaz Dahl
--- NOTE | 2018-10-28 16:26 | PN ---
Progress Note, Physician History of Present Illness: OOB IN CHAIR STILL WITH COUGH NO C/O CHEST PAIN/ DYSPNEA AFEBRILE WBC WNL - Current Medication List Current Medications: Active Medications Amlodipine Besylate (Norvasc -) 10 mg PO DAILY [facility] Last Admin: 10/28/18 09:18 Dose: 10 mg Atorvastatin Calcium (Lipitor -) 20 mg PO HS [facility] Last Admin: 10/27/18 23:01 Dose: 20 mg Bethanechol Chloride (Urecholine -) 25 mg PO TID [facility] Last Admin: 10/28/18 13:43 Dose: 25 mg Clopidogrel Bisulfate (Plavix -) 75 mg PO DAILY [facility] Last Admin: 10/28/18 09:18 Dose: 75 mg Enoxaparin Sodium (Lovenox -) 40 mg SQ DAILY [facility] Last Admin: 10/28/18 09:19 Dose: 40 mg Gabapentin (Neurontin -) 100 mg PO HS [facility] Last Admin: 10/27/18 23:01 Dose: 100 mg Guaifenesin (Robitussin -) 5 ml PO TID [facility] Last Admin: 10/28/18 13:43 Dose: 5 ml Doxycycline Hyclate 100 mg/ (Dextrose) 100 mls @ 100 mls/hr IVPB BID [facility] Last Admin: 10/28/18 09:15 Dose: 100 mls/hr Aztreonam 1 gm/ Dextrose 50 mls @ 100 mls/hr IVPB Q8H-IV [facility]; Protocol Last Admin: 10/28/18 10:50 Dose: 100 mls/hr Vancomycin HCl (Vancomycin 1 Gm Premix -) 1 gm in 200 mls @ 133.333 mls/hr IVPB BID@0000,1200 [facility]; Protocol Last Admin: 10/28/18 12:17 Dose: 133.333 mls/hr Methylprednisolone Sodium Succinate (Solu-Medrol -) 40 mg IVPUSH DAILY [facility] Last Admin: 10/28/18 09:17 Dose: 40 mg Metoprolol Succinate (Toprol Xl -) 50 mg PO DAILY [facility] Last Admin: 10/28/18 09:18 Dose: 50 mg Pantoprazole Sodium (Protonix Iv) 40 mg IVPUSH DAILY [facility] Last Admin: 10/28/18 09:16 Dose: 40 mg Polyethylene Glycol (Miralax (For Daily Use) -) 17 gm PO DAILY [facility] Last Admin: 10/28/18 09:19 Dose: Not Given Senna (Senna -) 2 tab PO HS PRN PRN Reason: CONSTIPATION Sodium Chloride (Sodium Chloride Tablet -) 1 gm PO DAILY [facility] Last Admin: 10/28/18 09:18 Dose: 1 gm Valsartan (Diovan -) 320 mg PO DAILY [facility] Last Admin: 10/28/18 09:19 Dose: 320 mg - Objective Vital Signs: Vital Signs Temperature 97.3 F L 10/28/18 14:20 Pulse Rate 61 10/28/18 14:20 Respiratory Rate 18 10/28/18 14:20 Blood Pressure 122/56 L 10/28/18 14:20 O2 Sat by Pulse Oximetry (%) 93 L 10/28/18 09:00 Constitutional: Yes: No Distress Eyes: Yes: Conjunctiva Clear Cardiovascular: Yes: Regular Rate and Rhythm, S1, S2 Respiratory: Yes: Other (+ CREPITATIONS AT BASES) Gastrointestinal: Yes: Normal Bowel Sounds, Soft. No: Tenderness Labs: CBC, BMP 10/28/18 06:30 10/28/18 06:30 INR, PTT INR 1.05 (0.83-1.09) 10/27/18 07:15 Assessment/Plan R/O HCAP ?SCLERODERMA LUNG MULTIPLE ANTIBIOTIC ALLERGIES AWAIT C/S CONTINUE VANCOMYCIN/ AZTREONAM/ DOXYCYCLINE
--- NOTE | 2018-10-28 16:44 | PN ---
Physical Exam: SUBJECTIVE: Patient seen and examined; feels very weak; cannot even get up from bed to commode; wilson back in for urinary retention. OBJECTIVE: Vital Signs Period Temp Pulse Resp BP Sys/Stewart Pulse Ox Last 24 Hr 97.3 F-97.9 F 61-87 - 122-154/56-73 93-95 GENERAL: The patient is awake, alert, and fully oriented, in no acute distress. LUNGS:course breath sounds throughout HEART: Regular rate and rhythm, S1, S2 without murmur, rub or gallop. ABDOMEN: Soft, nontender, nondistended, normoactive bowel sounds, no guarding, no rebound, no hepatosplenomegaly, no masses. EXTREMITIES: 2+ pulses, warm, well-perfused, no edema. NEUROLOGICAL:AAOx 3; decreased strength throughout; sensation intact PSYCH: Normal mood, normal affect. SKIN: Warm, dry, normal turgor, no rashes or lesions noted Laboratory Results - last 24 hr 10/27/18 10/28/18 10/28/18 15:00 06:30 06:30 WBC 5.2 RBC 3.73 Hgb 11.6 Hct 34.0 MCV 91.4 MCH 31.2 MCHC 34.2 RDW 13.8 Plt Count 523 H MPV 7.8 Absolute Neuts (auto) 4.3 Neutrophils % 81.4 Lymphocytes % 17.0 Monocytes % 1.5 L Eosinophils % 0.0 D Basophils % 0.1 Nucleated RBC % 0 Sodium 132 L Potassium 4.9 Chloride 103 Carbon Dioxide 21 Anion Gap 8 BUN 14 Creatinine 0.6 Creat Clearance w eGFR 95.24 Random Glucose 122 H Calcium 8.8 Urine Color Yellow Urine Appearance Clear Urine pH 5.0 Ur Specific [place] 1.009 L Urine Protein Negative Urine Glucose (UA) Negative Urine Ketones Negative Urine Blood Negative Urine Nitrite Negative Urine Bilirubin Negative Urine Urobilinogen 0.2 Ur Leukocyte Esterase Negative Active Medications Generic Name Dose Route Start Last Admin Trade Name Freq PRN Reason Stop Dose Admin Amlodipine Besylate 10 mg 10/27/18 10:00 10/28/18 09:18 Norvasc - PO 10 mg DAILY ALANNA Administration Atorvastatin Calcium 20 mg 10/26/18 22:00 10/27/18 23:01 Lipitor - PO 20 mg HS ALANNA Administration Bethanechol Chloride 25 mg 10/26/18 22:00 10/28/18 13:43 Urecholine - PO 25 mg TID ALANNA Administration Clopidogrel Bisulfate 75 mg 10/27/18 10:00 10/28/18 09:18 Plavix - PO 75 mg DAILY ALANNA Administration Enoxaparin Sodium 40 mg 10/27/18 10:00 10/28/18 09:19 Lovenox - SQ 40 mg DAILY ALANNA Administration Gabapentin 100 mg 10/26/18 22:00 10/27/18 23:01 Neurontin - PO 100 mg HS ALANNA Administration Guaifenesin 5 ml 10/26/18 22:00 10/28/18 13:43 Robitussin - PO 5 ml TID ALANNA Administration Doxycycline Hyclate 100 mg/ 100 mls @ 100 mls/hr 10/26/18 22:00 10/28/18 09: 15 Dextrose IVPB 100 mls/hr BID ALANNA Administration Aztreonam 1 gm/ Dextrose 50 mls @ 100 mls/hr 10/27/18 18:00 10/28/18 10:50 IVPB 100 mls/hr Q8H-IV ALANNA Administration Protocol Vancomycin HCl 1 gm in 200 mls @ 133.333 mls/hr 10/28/18 00:00 10/28/18 12:17 Vancomycin 1 Gm Premix - IVPB 133.333 mls/hr BID@0000,1200 ALANNA Administration Protocol Methylprednisolone Sodium Succinate 40 mg 10/27/18 15:15 10/28/18 09:17 Solu-Medrol - IVPUSH 40 mg DAILY ALANNA Administration Metoprolol Succinate 50 mg 10/27/18 10:00 10/28/18 09:18 Toprol Xl - PO 50 mg DAILY ALANNA Administration Pantoprazole Sodium 40 mg 10/27/18 14:45 10/28/18 09:16 Protonix Iv IVPUSH 40 mg DAILY ALANNA Administration Polyethylene Glycol 17 gm 10/27/18 10:00 10/28/18 09:19 Miralax (For Daily Use) - PO Not Given DAILY ALANNA Senna 2 tab 10/26/18 21:43 Senna - PO HS PRN CONSTIPATION Sodium Chloride 1 gm 10/27/18 10:00 10/28/18 09:18 Sodium Chloride Tablet - PO 1 gm DAILY ALANNA Administration Valsartan 320 mg 10/27/18 10:00 10/28/18 09:19 Diovan - PO 320 mg DAILY ALANNA Administration ASSESSMENT/PLAN: This is a 83 year old female with a history of scleroderma, pulm fibrosis, atrial fibrillation not on AC, Raynauds, SIADH, recent RLE cellulitis, s/p rehab ; found to be sob at rehab, here for PNA. 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 - New Patient This patient is new to me today: No - Critical Care Critical Care patient: No
[2018-10-28] MEDS ORDERED: PT OWN MED DRAWER 7, Y5N ONE (20:29)
[2018-10-28] MEDS: ATORVASTATIN CA 20 MG TABLET (FP) PO SCH (21:26)
[2018-10-28] MEDS: GABAPENTIN 100 MG CAPSULE (FP) PO SCH (21:27)
[2018-10-28] MEDS ORDERED: SODIUM CHLORIDE FOR INHALATION 3 ML VIAL.NEB IH ONE (23:30)
[2018-10-28] MEDS ORDERED: guaiFENesin 200 MG/10 ML 10 ML UNIT-DOSE CUPS PO ONE (23:30)
[2018-10-29] MEDS: AZTREONAM 1 GM in DEXTROSE 5%-WATER - 50 ML IVPB SCH ×3 (03:02→19:00)
[2018-10-29] MEDS: BETHANECHOL CHLORIDE 25 MG TABLET PO SCH ×3 (05:12→22:02)
[2018-10-29] MEDS: guaiFENesin 200 MG/10 ML 10 ML UNIT-DOSE CUPS PO SCH ×3 (05:12→22:02)
[2018-10-29 07:58] LABS: BASO % 0.2 % (0-2.0); HEMATOCRIT 31.5 % (32.4-45.2); HEMOGLOBIN 10.5 GM/dL (10.7-15.3); LYMPH % 12.2 % (8-40); MCH 30.3 pg (25.7-33.7); MCHC 33.4 g/dl (32.0-36.0); MEAN CELL VOLUME 90.5 fl (80-96); MEAN PLT VOLUME 7.6 fl (7.5-11.1); MONO % 4.3 % (3.8-10.2); NEUT % 83.3 % (42.8-82.8); PLATELET COUNT 585 K/MM3 (134-434); RBC 3.48 M/mm3 (3.60-5.2); WHITE BLOOD COUNT 12.6 K/mm3 (4.0-10.0)
[2018-10-29 08:24] LABS: ALBUMIN 2.5 g/dl (3.4-5.0); ALK PHOS 55 U/L (45-117); ANION GAP 9 MMOL/L (8-16); BILIRUBIN,TOTAL 0.2 mg/dL (0.2-1); BLOOD UREA NITROGEN 18 mg/dL (7-18); CALCIUM 8.9 mg/dL (8.5-10.1); CHLORIDE 102 mmol/L (98-107); CO2 21 mmol/L (21-32); CREATININE 0.7 mg/dL (0.55-1.3); GLUCOSE,RANDOM 89 mg/dL (74-106); MAGNESIUM 1.8 mg/dL (1.8-2.4); PHOSPHOROUS 3.8 mg/dL (2.5-4.9); SGOT/AST 13 U/L (15-37); SGPT/ALT 13 U/L (13-61); SODIUM 132 mmol/L (136-145); TOT PROT 6.8 g/dl (6.4-8.2)
[2018-10-29] MEDS ORDERED: PT OWN MED DRAWER 7, Y5N ONE ×4 (10:05→20:53)
[2018-10-29] MEDS: ENOXAPARIN NA (PORCINE) 40 MG/0.4 ML DISP.SYRIN SQ SCH (10:11)
[2018-10-29] MEDS: PANTOPRAZOLE SODIUM 40 MG VIAL IVPUSH SCH (10:11)
[2018-10-29] MEDS: methylPREDNISolone NA SUCC 40 MG/1 ML VIAL IVPUSH SCH (10:11)
[2018-10-29] MEDS: SODIUM CHLORIDE 1 GM TABLET PO SCH (10:12)
[2018-10-29] MEDS: DOXYCYCLINE INJECTION 100 MG in DEXTROSE 5%-WATER - 100 ML IVPB SCH ×2 (10:12→22:01)
[2018-10-29] MEDS: CLOPIDOGREL BISULFATE 75 MG TABLET (FP) PO SCH (10:12)
[2018-10-29] MEDS: amLODIPine BESYLATE 10 MG TABLET (FP) PO SCH (10:12)
[2018-10-29] MEDS: POLYETHYLENE GLYCOL 3350 119 GM BTL PO SCH (10:14)
[2018-10-29] MEDS: VALSARTAN 160 MG TABLET (UD) PO SCH (10:15)
--- NOTE | 2018-10-29 11:00 | PN ---
Physical Exam: SUBJECTIVE: Patient seen and examined; still weak; OOB to chair yesterday not able to stand up on her own; still with wilson; afebrile OBJECTIVE: Vital Signs Period Temp Pulse Resp BP Sys/Stewart Pulse Ox Last 24 Hr 97.3 F-98.3 F 48-61 18-20 122-138/52-56 95 GENERAL: The patient is awake, alert, and fully oriented, weak LUNGS:course b/l breath sounds with wheeze HEART: Regular rate and rhythm, S1, S2 without murmur, rub or gallop. ABDOMEN: Soft, nontender, nondistended, normoactive bowel sounds, no guarding, no rebound, no hepatosplenomegaly, no masses. EXTREMITIES: 2+ pulses, warm, well-perfused, no edema. NEUROLOGICAL: Cranial nerves II through XII grossly intact. Normal speech, gait not observed. PSYCH: depressed Laboratory Results - last 24 hr 10/29/18 10/29/18 10/29/18 07:20 07:20 07:20 WBC 12.6 H RBC 3.48 L Hgb 10.5 L Hct 31.5 L MCV 90.5 MCH 30.3 MCHC 33.4 RDW 14.0 Plt Count 585 H MPV 7.6 Absolute Neuts (auto) 10.5 H Neutrophils % 83.3 H Lymphocytes % 12.2 D Monocytes % 4.3 D Eosinophils % 0.0 Basophils % 0.2 Nucleated RBC % 0 Sodium 132 L Potassium 5.0 Chloride 102 Carbon Dioxide 21 Anion Gap 9 BUN 18 Creatinine 0.7 Creat Clearance w eGFR 79.72 Random Glucose 89 Calcium 8.9 Phosphorus 3.8 Magnesium 1.8 Total Bilirubin 0.2 AST 13 L ALT 13 Alkaline Phosphatase 55 Total Protein 6.8 Albumin 2.5 L Vancomycin Pre-Dose 30.5 H* Active Medications Generic Name Dose Route Start Last Admin Trade Name Freq PRN Reason Stop Dose Admin Amlodipine Besylate 10 mg 10/27/18 10:00 10/29/18 10:12 Norvasc - PO 10 mg DAILY ALANNA Administration Atorvastatin Calcium 20 mg 10/26/18 22:00 10/28/18 21:26 Lipitor - PO 20 mg HS ALANNA Administration Bethanechol Chloride 25 mg 10/26/18 22:00 10/29/18 05:12 Urecholine - PO 25 mg TID ALANNA Administration Clopidogrel Bisulfate 75 mg 10/27/18 10:00 10/29/18 10:12 Plavix - PO 75 mg DAILY ALANNA Administration Enoxaparin Sodium 40 mg 10/27/18 10:00 10/29/18 10:11 Lovenox - SQ 40 mg DAILY ALANNA Administration Gabapentin 100 mg 10/26/18 22:00 10/28/18 21:27 Neurontin - PO 100 mg HS ALANNA Administration Guaifenesin 5 ml 10/26/18 22:00 10/29/18 05:12 Robitussin - PO 5 ml TID ALANNA Administration Doxycycline Hyclate 100 mg/ 100 mls @ 100 mls/hr 10/26/18 22:00 10/29/18 10: 12 Dextrose IVPB 100 mls/hr BID ALANNA Administration Aztreonam 1 gm/ Dextrose 50 mls @ 100 mls/hr 10/27/18 18:00 10/29/18 10:18 IVPB 100 mls/hr Q8H-IV ALANNA Administration Protocol Vancomycin HCl 1 gm in 200 mls @ 133.333 mls/hr 10/28/18 00:00 10/28/18 23:59 Vancomycin 1 Gm Premix - IVPB 133.333 mls/hr BID@0000,1200 ALANNA Administration Protocol Methylprednisolone Sodium Succinate 40 mg 10/27/18 15:15 10/29/18 10:11 Solu-Medrol - IVPUSH 40 mg DAILY ALANNA Administration Metoprolol Succinate 50 mg 10/27/18 10:00 10/29/18 10:11 Toprol Xl - PO 50 mg DAILY ALANNA Administration Pantoprazole Sodium 40 mg 10/27/18 14:45 10/29/18 10:11 Protonix Iv IVPUSH 40 mg DAILY ALANNA Administration Polyethylene Glycol 17 gm 10/27/18 10:00 10/29/18 10:14 Miralax (For Daily Use) - PO Not Given DAILY ALANNA Senna 2 tab 10/26/18 21:43 Senna - PO HS PRN CONSTIPATION Sodium Chloride 1 gm 10/27/18 10:00 10/29/18 10:12 Sodium Chloride Tablet - PO 1 gm DAILY ALANNA Administration Valsartan 320 mg 10/27/18 10:00 10/29/18 10:15 Diovan - PO 320 mg DAILY ALANNA Administration ASSESSMENT/PLAN: This is a 83 year old female with a history of scleroderma, pulm fibrosis, atrial fibrillation not on AC, Raynauds, SIADH, recent RLE cellulitis, s/p rehab ; found to be sob at rehab, here for PNA. #HCAP -IV antibiotics Aztreonam/Doxycycline/vanco -urine pna negative -sputm cx -ID /pulm following #Pulm fibrosis;scleroderma -CT noted; progressive vs from PNA; -cont IV antibitocs; -inhaled broncodilators -cont steroids taper as per clinical evaluation -outpatient repeat CT and pulm function testing #anemia with thrombocytosis -iron studies; b12, folate -heme f/u oupt for thrombocytosis #afib; not on AC; on plavix? 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 - New Patient This patient is new to me today: No - Critical Care Critical Care patient: No
[2018-10-29] MEDS: VANCOMYCIN 1 GM PREMIX - 1 GM/200 ML BAG IVPB SCH (13:36)
--- NOTE | 2018-10-29 14:26 | PN ---
Progress Note, Physician History of Present Illness: PULMONARY ALERT,OOB-CHAIR,NOT FEELING WELL,+ COUGH,+DYSPNEA WITH MIN EXERTION - Current Medication List Current Medications: Active Medications Amlodipine Besylate (Norvasc -) 10 mg PO DAILY [facility] Last Admin: 10/29/18 10:12 Dose: 10 mg Atorvastatin Calcium (Lipitor -) 20 mg PO HS [facility] Last Admin: 10/28/18 21:26 Dose: 20 mg Bethanechol Chloride (Urecholine -) 25 mg PO TID [facility] Last Admin: 10/29/18 05:12 Dose: 25 mg Clopidogrel Bisulfate (Plavix -) 75 mg PO DAILY [facility] Last Admin: 10/29/18 10:12 Dose: 75 mg Enoxaparin Sodium (Lovenox -) 40 mg SQ DAILY [facility] Last Admin: 10/29/18 10:11 Dose: 40 mg Gabapentin (Neurontin -) 100 mg PO HS [facility] Last Admin: 10/28/18 21:27 Dose: 100 mg Guaifenesin (Robitussin -) 5 ml PO TID [facility] Last Admin: 10/29/18 05:12 Dose: 5 ml Doxycycline Hyclate 100 mg/ (Dextrose) 100 mls @ 100 mls/hr IVPB BID [facility] Last Admin: 10/29/18 10:12 Dose: 100 mls/hr Aztreonam 1 gm/ Dextrose 50 mls @ 100 mls/hr IVPB Q8H-IV [facility]; Protocol Last Admin: 10/29/18 10:18 Dose: 100 mls/hr Methylprednisolone Sodium Succinate (Solu-Medrol -) 40 mg IVPUSH DAILY [facility] Last Admin: 10/29/18 10:11 Dose: 40 mg Metoprolol Succinate (Toprol Xl -) 50 mg PO DAILY [facility] Last Admin: 10/29/18 10:11 Dose: 50 mg Pantoprazole Sodium (Protonix Iv) 40 mg IVPUSH DAILY [facility] Last Admin: 10/29/18 10:11 Dose: 40 mg Polyethylene Glycol (Miralax (For Daily Use) -) 17 gm PO DAILY [facility] Last Admin: 10/29/18 10:14 Dose: Not Given Senna (Senna -) 2 tab PO HS PRN PRN Reason: CONSTIPATION Sodium Chloride (Sodium Chloride Tablet -) 1 gm PO DAILY [facility] Last Admin: 10/29/18 10:12 Dose: 1 gm Valsartan (Diovan -) 320 mg PO DAILY ALANNA Last Admin: 10/29/18 10:15 Dose: 320 mg - Objective Vital Signs: Vital Signs Temperature 97.4 F L 10/29/18 14:14 Pulse Rate 55 L 10/29/18 14:14 Respiratory Rate 18 10/29/18 14:14 Blood Pressure 138/57 L 10/29/18 14:14 O2 Sat by Pulse Oximetry (%) 95 10/28/18 21:00 Constitutional: Yes: Well Nourished, Calm Eyes: Yes: WNL HENT: Yes: WNL Neck: Yes: WNL Cardiovascular: Yes: Pulse Irregular, S1, S2 Respiratory: Yes: Rales (TAYLA CRACKLES,FEW RHONCHI) Gastrointestinal: Yes: Normal Bowel Sounds, Soft Extremities: Yes: WNL Edema: No Labs: CBC, BMP 10/29/18 07:20 10/29/18 07:20 INR, PTT INR 1.05 (0.83-1.09) 10/27/18 07:15 Assessment/Plan Problem List - Problems (1) Atrial fibrillation Code(s): I48.91 - UNSPECIFIED ATRIAL FIBRILLATION Qualifiers: Atrial fibrillation type: chronic Qualified Code(s): I48.2 - Chronic atrial fibrillation (2) Pneumonia Code(s): J18.9 - PNEUMONIA, UNSPECIFIED ORGANISM Qualifiers: Pneumonia type: due to unspecified organism Laterality: unspecified laterality Lung location: unspecified part of lung Qualified Code(s): J18.9 - Pneumonia, unspecified organism (3) Scleroderma Code(s): M34.9 - SYSTEMIC SCLEROSIS, UNSPECIFIED (4) HLD (hyperlipidemia) Code(s): E78.5 - HYPERLIPIDEMIA, UNSPECIFIED (5) HTN (hypertension) Code(s): I10 - ESSENTIAL (PRIMARY) HYPERTENSION Assessment/Plan Medrol ABX per ID O2 as needed AC Will need followup imaging and PFTs in about [address] GARDNER Problem List - Problems (1) Atrial fibrillation Code(s): I48.91 - UNSPECIFIED ATRIAL FIBRILLATION Qualifiers: Atrial fibrillation type: chronic Qualified Code(s): I48.2 - Chronic atrial fibrillation (2) Pneumonia Code(s): J18.9 - PNEUMONIA, UNSPECIFIED ORGANISM Qualifiers: Pneumonia type: due to unspecified organism Laterality: unspecified laterality Lung location: unspecified part of lung Qualified Code(s): J18.9 - Pneumonia, unspecified organism (3) Scleroderma Code(s): M34.9 - SYSTEMIC SCLEROSIS, UNSPECIFIED (4) HLD (hyperlipidemia) Code(s): E78.5 - HYPERLIPIDEMIA, UNSPECIFIED (5) HTN (hypertension) Code(s): I10 - ESSENTIAL (PRIMARY) HYPERTENSION
--- NOTE | 2018-10-29 15:14 | CONSULT ---
Consult Consult Specialty:: Rheumatology - History of Present Illness History of Present Illness: 83 year old female with history of Raynauds, scleroderma, A. fib, rule out ILD , admitted to [facility] 1 week ago with cellulitis, discharged to a rehab facility and now admitted with worsening productive cough, probable pneumonia. HPI. 23 years ago the patient developed Raynaud's phenomenon and puffiness in her hands and diagnosed with scleroderma. I initially saw her on December 2012 as she was admitted with cellulits, She denied SOB, telangiectasia, calcinosis or dysphagia. A CT of the chest (12/24/12) was reported with bibasilar interstitial thickening consistent with pulmonary fibrosis and unchanged as compared with a 2010 study. On the physical examination she had puffiness in hands but no increased skin binding (no sclerodactily or proximal scleroderma). 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 At that time it was considered that the disease was not active, She did not follow-up with me and she was never treated with immunosuppressive medications. 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 Prior to last weeks admission she did not have cough or shortness of breat. On this admission a CXR was reported with SERG and right base infiltrates. CT of the chest reported with COPD, bilateral upper lobe ground glass opacities most likely related to non-specific pneumonitis and honeycombing at the bases. WBC 9.6 and creatinine 0.7. Echocardiogram: RV and LV function were normal. Apparently there is no pulmonary hypertension. She has not have fever and was started on Vanco and Aztreonam. At the present time she continues having productive cough. - History Source History Provided By: Patient, Medical Record - Past Medical History Cardio/Vascular: Yes: AFIB (paroxysmal, not a candidate for anticoagulation due to frequent falls.), HTN, Hyperlipdemia Pulmonary: Yes: Bronchitis, COPD, Pneumonia, Pulmonary Fibrosis. No: Asthma, O2 Dependent, Previously Intubated, Pulmonary Embolus, Sleep Apnea ...: No Rheumatology: Yes: Other (scleroderma, Raynauds syndrome) Additional Medical History: Anxiety. Hyponatremia. MGUS - Alcohol/Substance Use Hx Alcohol Use: No - Smoking History Smoking history: Never smoked Have you smoked in the past 12 months: No Aproximately how many cigarettes per day: 0 - Social History Usual Living Arrangement: With Spouse ADL: Family Assistance Home Medications - Allergies Allergies/Adverse Reactions: Allergies Allergy/AdvReac Type Severity Reaction Status Date / Time aspirin Allergy Swelling Verified 10/26/18 16:45 cephalexin [From Keflex] Allergy Verified 10/26/18 16:45 ciprofloxacin [From Cipro] Allergy Swelling Verified 10/26/18 16:45 ciprofloxacin HCl Allergy Swelling Verified 10/26/18 16:45 [From Cipro] Penicillins Allergy Swelling Verified 10/26/18 16:45 Quinolones Allergy Verified 10/26/18 16:45 - Home Medications Home Medications: Ambulatory Orders Amlodipine Besylate [Norvasc -] 10 mg PO DAILY 10/13/18 Cholecalciferol (Vitamin D3) [Vitamin D3] 1,000 unit PO DAILY 10/13/18 Clopidogrel Bisulfate [Plavix] 75 mg PO DAILY 10/13/18 Metoprolol Succinate [Toprol Xl] 50 mg PO DAILY 10/13/18 Pravastatin Sodium [Pravachol -] 80 mg PO HS 10/13/18 Sodium Chloride Tablet - 1 gm PO DAILY 10/13/18 Valsartan 320 mg PO DAILY 10/13/18 Bethanechol Chloride [Bethanechol Chloride -] 25 mg PO TID tablet 10/21/18 Gabapentin [Neurontin -] 100 mg PO HS capsule 10/21/18 Polyethylene Glycol 3350 [Miralax 119 gm Btl -] 17 gm PO DAILY bottle 10/21/18 Sennosides [Senna -] 2 tab PO HS PRN tablet 10/21/18 Azithromycin 500 mg PO DAILY 10/26/18 Guaifenesin 100 mg PO TID 10/26/18 Review of Systems - Review of Systems Eyes: reports: No Symptoms HENT: reports: No Symptoms Neck: reports: No Symptoms Cardiovascular: reports: No Symptoms Respiratory: reports: Cough, SOB Gastrointestinal: reports: No Symptoms Musculoskeletal: reports: No Symptoms Integumentary: reports: Other (Raynaud's phenomenon) Physical Exam Vital Signs: Vital Signs Temperature 97.4 F L 10/29/18 14:14 Pulse Rate 55 L 10/29/18 14:14 Respiratory Rate 18 10/29/18 14:14 Blood Pressure 138/57 L 10/29/18 14:14 O2 Sat by Pulse Oximetry (%) 95 10/28/18 21:00 Constitutional: Yes: Mild Distress Eyes: Yes: WNL HENT: Yes: WNL Neck: Yes: WNL Cardiovascular: Yes: WNL Respiratory: Yes: Other (Rales in bases) Musculoskeletal: Yes: Other (No active joints. Subluxation and ulnar deviation of MCPs.) Integumentary: Yes: Other (Puffiness in hands,. No sclerodactily or proximal scleroderma. Ischemic changes in tip of 2 fingers ineach hads, No telangiectasia or calcinosis,) Labs: CBC, BMP 10/29/18 07:20 10/29/18 07:20 Laboratory Tests 10/26/18 10/27/18 10/29/18 17:29 15:00 07:20 Total Bilirubin 0.2 AST 13 L ALT 13 Alkaline Phosphatase 55 Total Protein 6.8 Albumin 2.5 L Urine Color Yellow Urine Appearance Clear Urine pH 5.0 Ur Specific [place] 1.009 L Urine Protein Negative Urine Glucose (UA) Negative Urine Ketones Negative Urine Blood Negative Urine Nitrite Negative Urine Bilirubin Negative Urine Urobilinogen 0.2 Ur Leukocyte Esterase Negative Influenza A (Rapid) Negative Influenza B (Rapid) Negative Problem List - Problems (1) Scleroderma Assessment/Plan: Probable Scleroderma. No significant skin binding. 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 Probable progression in intertitial lung changes, however the patient was asymptomatic prior to the present pneumonia and she is not hypoxic. I discussed the case with Dr. Sultana. she will have PFT as outpatient. No indication at this time of immunomodulators. Code(s): M34.9 - SYSTEMIC SCLEROSIS, UNSPECIFIED
--- NOTE | 2018-10-29 15:57 | PN ---
Teaching Attending Note Name of Resident: Zulma Sánchez ATTENDING PHYSICIAN STATEMENT I saw and evaluated the patient. I reviewed the resident's note and discussed the case with the resident. I agree with the resident's findings and plan as documented. SUBJECTIVE: Ms Dillon complains of weakness. She says that she got up with PT and feels wiped out. Says she feels bad because she "has pneumonia" but is denying sob/fevers/cough. Denies cp and n/v. OBJECTIVE: Last Vital Signs Temp Pulse Resp BP Pulse Ox 36.3 C L 55 L 18 138/57 L 95 10/29/18 14:14 10/29/18 14:14 10/29/18 14:14 10/29/18 14:14 10/28/18 21:00 Gen: nad, sitting in chair Pulm: diffuse ronchi bilaterally CV: rrr w/o m/r/g Abd: +bs, s/nt/nd Ext: no c/c/e CBC, BMP 10/29/18 07:20 10/29/18 07:20 ASSESSMENT AND PLAN: Problem List - Problems (1) Pneumonia Assessment/Plan: -appreciate ID assistance -continue aztreonam and doxycycline -CT scan is significant but ? how much is progression of scleroderma -presentation could be from scleroderma and deconditioning -continue empiric antibiotics currently and follow up cultures -may consider trial off of antibiotics Code(s): J18.9 - PNEUMONIA, UNSPECIFIED ORGANISM Qualifiers: Pneumonia type: due to unspecified organism Laterality: unspecified laterality Lung location: unspecified part of lung Qualified Code(s): J18.9 - Pneumonia, unspecified organism (2) Scleroderma Assessment/Plan: -agree with rheumatology consult -continue solumedrol Code(s): M34.9 - SYSTEMIC SCLEROSIS, UNSPECIFIED (3) Atrial fibrillation Assessment/Plan: -currently sounds in sinus rhythm -continue toprol xl Code(s): I48.91 - UNSPECIFIED ATRIAL FIBRILLATION Qualifiers: Atrial fibrillation type: chronic Qualified Code(s): I48.2 - Chronic atrial fibrillation (4) HLD (hyperlipidemia) Assessment/Plan: continue statin Code(s): E78.5 - HYPERLIPIDEMIA, UNSPECIFIED (5) HTN (hypertension) Assessment/Plan: -well controlled -continue current management Code(s): I10 - ESSENTIAL (PRIMARY) HYPERTENSION (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) Assessment/Plan: -continue salt tablets (7) Urinary retention Assessment/Plan: -wilson placed -voiding trial tomorrow Code(s): R33.9 - RETENTION OF URINE, UNSPECIFIED
[2018-10-29] MEDS: ATORVASTATIN CA 20 MG TABLET (FP) PO SCH (22:02)
[2018-10-29] MEDS: GABAPENTIN 100 MG CAPSULE (FP) PO SCH (22:02)
[2018-10-30] MEDS: AZTREONAM 1 GM in DEXTROSE 5%-WATER - 50 ML IVPB SCH ×3 (02:29→17:30)
[2018-10-30] MEDS: BETHANECHOL CHLORIDE 25 MG TABLET PO SCH ×3 (06:19→21:58)
[2018-10-30] MEDS: guaiFENesin 200 MG/10 ML 10 ML UNIT-DOSE CUPS PO SCH ×3 (06:19→21:57)
[2018-10-30 07:24] LABS: BASO % 0.1 % (0-2.0); HEMATOCRIT 30.4 % (32.4-45.2); HEMOGLOBIN 10.2 GM/dL (10.7-15.3); LYMPH % 11.8 % (8-40); MCH 30.7 pg (25.7-33.7); MCHC 33.4 g/dl (32.0-36.0); MEAN CELL VOLUME 91.8 fl (80-96); MEAN PLT VOLUME 7.7 fl (7.5-11.1); MONO % 3.8 % (3.8-10.2); NEUT % 84.3 % (42.8-82.8); PLATELET COUNT 583 K/MM3 (134-434); RBC 3.31 M/mm3 (3.60-5.2); WHITE BLOOD COUNT 9.8 K/mm3 (4.0-10.0)
[2018-10-30 08:06] LABS: ANION GAP 9 MMOL/L (8-16); BLOOD UREA NITROGEN 24 mg/dL (7-18); CALCIUM 8.8 mg/dL (8.5-10.1); CHLORIDE 102 mmol/L (98-107); CO2 23 mmol/L (21-32); CREATININE 0.8 mg/dL (0.55-1.3); GLUCOSE,RANDOM 81 mg/dL (74-106); MAGNESIUM 1.4 mg/dL (1.8-2.4); PHOSPHOROUS 3.3 mg/dL (2.5-4.9); POTASSIUM 4.4 mmol/L (3.5-5.1); SODIUM 134 mmol/L (136-145)
--- NOTE | 2018-10-30 09:33 | PN ---
Progress Note (short form) - Note Progress Note: Resting in NAD on RA. Less congested cough. No hemoptysis. No acute events overnight. Intake & Output 10/27/18 10/28/18 10/29/18 10/30/18 23:59 23:59 23:59 23:59 Intake Total 1600 1200 600 100 Output Total 2600 700 2000 1300 Balance -1000 500 -1400 -1200 Weight 126 lb 6 oz 124 lb 11.2 oz Last Vital Signs Temp Pulse Resp BP Pulse Ox 97.6 F 61 20 144/63 94 L 10/30/18 05:00 10/30/18 05:00 10/30/18 05:00 10/30/18 05:00 10/29/18 21:00 Active Medications Amlodipine Besylate (Norvasc -) 10 mg PO DAILY [facility] Last Admin: 10/29/18 10:12 Dose: 10 mg Atorvastatin Calcium (Lipitor -) 20 mg PO [facility] Last Admin: 10/29/18 22:02 Dose: 20 mg Bethanechol Chloride (Urecholine -) 25 mg PO TID [facility] Last Admin: 10/30/18 06:19 Dose: 25 mg Clopidogrel Bisulfate (Plavix -) 75 mg PO DAILY [facility] Last Admin: 10/29/18 10:12 Dose: 75 mg Enoxaparin Sodium (Lovenox -) 40 mg SQ DAILY [facility] Last Admin: 10/29/18 10:11 Dose: 40 mg Gabapentin (Neurontin -) 100 mg PO [facility] Last Admin: 10/29/18 22:02 Dose: 100 mg Guaifenesin (Robitussin -) 5 ml PO TID [facility] Last Admin: 10/30/18 06:19 Dose: 5 ml Doxycycline Hyclate 100 mg/ (Dextrose) 100 mls @ 100 mls/hr IVPB BID [facility] Last Admin: 10/29/18 22:01 Dose: 100 mls/hr Aztreonam 1 gm/ Dextrose 50 mls @ 100 mls/hr IVPB Q8H-IV [facility]; Protocol Last Admin: 10/30/18 02:29 Dose: 100 mls/hr Methylprednisolone Sodium Succinate (Solu-Medrol -) 40 mg IVPUSH DAILY [facility] Last Admin: 10/29/18 10:11 Dose: 40 mg Metoprolol Succinate (Toprol Xl -) 50 mg PO DAILY [facility] Last Admin: 10/29/18 10:11 Dose: 50 mg Pantoprazole Sodium (Protonix Iv) 40 mg IVPUSH DAILY [facility] Last Admin: 10/29/18 10:11 Dose: 40 mg Polyethylene Glycol (Miralax (For Daily Use) -) 17 gm PO DAILY [facility] Last Admin: 10/29/18 10:14 Dose: Not Given Senna (Senna -) 2 tab PO HS PRN PRN Reason: CONSTIPATION Sodium Chloride (Sodium Chloride Tablet -) 1 gm PO DAILY [facility] Last Admin: 10/29/18 10:12 Dose: 1 gm Valsartan (Diovan -) 320 mg PO DAILY [facility] Last Admin: 10/29/18 10:15 Dose: 320 mg Constitutional: Yes: No Distress, Mildly anxious Eyes: Yes: Conjunctiva Clear, EOM Intact HENT: Yes: Atraumatic, Normocephalic Neck: Yes: Supple, Trachea Midline Cardiovascular: Yes: Pulse Irregular Respiratory: Yes: Cough, Diminished, On Nasal O2, Dry Rales, Rhonchi. No: Accessory Muscle Use, Stridor, Tachypnea, Wheezes ...Inspection: Yes: WNL ...Clubbing: No Gastrointestinal: Yes: Normal Bowel Sounds, Soft Renal/: Yes: WNL Musculoskeletal: Yes: Joint Stiffness, Other (chronic changes ) Edema: No Peripheral Pulses WNL: Yes Integumentary: Yes: WNL Neurological: Yes: WNL, Alert, Oriented ...Motor Strength: WNL Psychiatric: Yes: WNL, Alert, Oriented Labs: Laboratory Results - last 24 hr 10/29/18 10/30/18 10/30/18 11:50 06:00 06:00 WBC RBC Hgb Hct MCV MCH MCHC RDW Plt Count MPV Absolute Neuts (auto) Neutrophils % Lymphocytes % Monocytes % Eosinophils % Basophils % Nucleated RBC % Sodium 134 L Potassium 4.4 Chloride 102 Carbon Dioxide 23 Anion Gap 9 BUN 24 H Creatinine 0.8 Creat Clearance w eGFR 68.34 Random Glucose 81 Calcium 8.8 Phosphorus 3.3 Magnesium 1.4 L Ferritin 95.4 Vitamin B12 656 Serum Folate 14 Random Vancomycin 19.4 Vancomycin Pre-Dose 27.2 H 10/30/18 06:00 WBC 9.8 RBC 3.31 L Hgb 10.2 L Hct 30.4 L MCV 91.8 MCH 30.7 MCHC 33.4 RDW 14.0 Plt Count 583 H MPV 7.7 Absolute Neuts (auto) 8.3 H Neutrophils % 84.3 H Lymphocytes % 11.8 Monocytes % 3.8 Eosinophils % 0.0 Basophils % 0.1 Nucleated RBC % 0 Sodium Potassium Chloride Carbon Dioxide Anion Gap BUN Creatinine Creat Clearance w eGFR Random Glucose Calcium Phosphorus Magnesium Ferritin Vitamin B12 Serum Folate Random Vancomycin Vancomycin Pre-Dose Problem List - Problems (1) Atrial fibrillation Code(s): I48.91 - UNSPECIFIED ATRIAL FIBRILLATION Qualifiers: Atrial fibrillation type: chronic Qualified Code(s): I48.2 - Chronic atrial fibrillation (2) Pneumonia Code(s): J18.9 - PNEUMONIA, UNSPECIFIED ORGANISM Qualifiers: Pneumonia type: due to unspecified organism Laterality: unspecified laterality Lung location: unspecified part of lung Qualified Code(s): J18.9 - Pneumonia, unspecified organism (3) Scleroderma Code(s): M34.9 - SYSTEMIC SCLEROSIS, UNSPECIFIED (4) HLD (hyperlipidemia) Code(s): E78.5 - HYPERLIPIDEMIA, UNSPECIFIED (5) HTN (hypertension) Code(s): I10 - ESSENTIAL (PRIMARY) HYPERTENSION Assessment/Plan Follow sputum Daily Medrol ABX per ID O2 as needed AC Will need followup imaging and PFTs in about 6 weeks Seen by Rheumatology yesterday, recommendations pending Dr Sultana Problem List - Problems (1) Atrial fibrillation Code(s): I48.91 - UNSPECIFIED ATRIAL FIBRILLATION Qualifiers: Atrial fibrillation type: chronic Qualified Code(s): I48.2 - Chronic atrial fibrillation (2) Pneumonia Code(s): J18.9 - PNEUMONIA, UNSPECIFIED ORGANISM Qualifiers: Pneumonia type: due to unspecified organism Laterality: unspecified laterality Lung location: unspecified part of lung Qualified Code(s): J18.9 - Pneumonia, unspecified organism (3) Scleroderma Code(s): M34.9 - SYSTEMIC SCLEROSIS, UNSPECIFIED (4) HLD (hyperlipidemia) Code(s): E78.5 - HYPERLIPIDEMIA, UNSPECIFIED (5) HTN (hypertension) Code(s): I10 - ESSENTIAL (PRIMARY) HYPERTENSION
[2018-10-30] MEDS ORDERED: PT OWN MED DRAWER 7, Y5N ONE ×2 (09:59→17:10)
[2018-10-30] MEDS: PANTOPRAZOLE SODIUM 40 MG VIAL IVPUSH SCH (10:16)
[2018-10-30] MEDS: amLODIPine BESYLATE 10 MG TABLET (FP) PO SCH (10:17)
[2018-10-30] MEDS: SODIUM CHLORIDE 1 GM TABLET PO SCH (10:17)
[2018-10-30] MEDS: CLOPIDOGREL BISULFATE 75 MG TABLET (FP) PO SCH (10:17)
[2018-10-30] MEDS: methylPREDNISolone NA SUCC 40 MG/1 ML VIAL IVPUSH SCH (10:17)
[2018-10-30] MEDS: DOXYCYCLINE INJECTION 100 MG in DEXTROSE 5%-WATER - 100 ML IVPB SCH ×2 (10:18→22:04)
[2018-10-30] MEDS: POLYETHYLENE GLYCOL 3350 119 GM BTL PO SCH (10:18)
[2018-10-30] MEDS: ENOXAPARIN NA (PORCINE) 40 MG/0.4 ML DISP.SYRIN SQ SCH (10:18)
[2018-10-30] MEDS: VALSARTAN 160 MG TABLET (UD) PO SCH (10:18)
--- NOTE | 2018-10-30 11:37 | PN ---
Teaching Attending Note Name of Resident: Zulma Sánchez ATTENDING PHYSICIAN STATEMENT I saw and evaluated the patient. I reviewed the resident's note and discussed the case with the resident. I agree with the resident's findings and plan as documented. SUBJECTIVE: Ms Dillon says she is still feeling weak. Denies cp, sob, n/v. Very reluctant to go back to SNF and wants an extended hospital stay. OBJECTIVE: Last Vital Signs Temp Pulse Resp BP Pulse Ox 36.4 C 61 20 144/63 94 L 10/30/18 05:00 10/30/18 05:00 10/30/18 05:00 10/30/18 05:00 10/29/18 21:00 Gen: nad Pulm: ronchi bilaterally w/o w/r, on room air CV: rrr w/o m/r/g Abd: +bs, s/nt/nd Ext: no c/c/e CBC, BMP 10/30/18 06:00 10/30/18 06:00 ASSESSMENT AND PLAN: (1) Pneumonia Assessment/Plan: -continue aztreonam and doxycycline -patient remains afebrile and without leukocytosis, also not requiring oxygen -ID following, will discuss when it is safe to transition to oral antibiotics -case d/w Dr Sultana, feels it is appropriate to transition to oral antibiotics and d/c back to SNF tomorrow -can transfer back to SNF when on oral antibiotics Code(s): J18.9 - PNEUMONIA, UNSPECIFIED ORGANISM Qualifiers: Pneumonia type: due to unspecified organism Laterality: unspecified laterality Lung location: unspecified part of lung Qualified Code(s): J18.9 - Pneumonia, unspecified organism (2) Scleroderma Assessment/Plan: -appreciate rheumatology assistance and note reviewed -on daily medrol -will d/w pulmonary how long and what dose prednisone patient should be on at discharge Code(s): M34.9 - SYSTEMIC SCLEROSIS, UNSPECIFIED (3) Atrial fibrillation Assessment/Plan: -currently sounds in sinus rhythm -continue toprol xl Code(s): I48.91 - UNSPECIFIED ATRIAL FIBRILLATION Qualifiers: Atrial fibrillation type: chronic Qualified Code(s): I48.2 - Chronic atrial fibrillation (4) HLD (hyperlipidemia) Assessment/Plan: continue statin Code(s): E78.5 - HYPERLIPIDEMIA, UNSPECIFIED (5) HTN (hypertension) Assessment/Plan: -well controlled -continue current management Code(s): I10 - ESSENTIAL (PRIMARY) HYPERTENSION (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) Assessment/Plan: -continue salt tablets (7) Urinary retention Assessment/Plan: -voiding trial today Code(s): R33.9 - RETENTION OF URINE, UNSPECIFIED Problem List - Problems (1) Pneumonia Code(s): J18.9 - PNEUMONIA, UNSPECIFIED ORGANISM Qualifiers: Pneumonia type: due to unspecified organism Laterality: unspecified laterality Lung location: unspecified part of lung Qualified Code(s): J18.9 - Pneumonia, unspecified organism (2) Scleroderma Code(s): M34.9 - SYSTEMIC SCLEROSIS, UNSPECIFIED (3) Atrial fibrillation Code(s): I48.91 - UNSPECIFIED ATRIAL FIBRILLATION Qualifiers: Atrial fibrillation type: chronic Qualified Code(s): I48.2 - Chronic atrial fibrillation (4) HLD (hyperlipidemia) Code(s): E78.5 - HYPERLIPIDEMIA, UNSPECIFIED (5) HTN (hypertension) Code(s): I10 - ESSENTIAL (PRIMARY) HYPERTENSION (7) Urinary retention Code(s): R33.9 - RETENTION OF URINE, UNSPECIFIED
[2018-10-30] MEDS ORDERED: MAGNESIUM OXIDE 400 MG TABLET (FP) PO ONE (13:00)
--- NOTE | 2018-10-30 13:38 | PN ---
Progress Note, Physician History of Present Illness: OOB IN CHAIR STILL WITH COUGH C/O PROFOUND WEAKNESS NO C/O CHEST PAIN/ DYSPNEA AFEBRILE WBC WNL VANCO ON HOLD TROUGH NOTED - Current Medication List Current Medications: Active Medications Amlodipine Besylate (Norvasc -) 10 mg PO DAILY [facility] Last Admin: 10/30/18 10:17 Dose: 10 mg Atorvastatin Calcium (Lipitor -) 20 mg PO HS [facility] Last Admin: 10/29/18 22:02 Dose: 20 mg Bethanechol Chloride (Urecholine -) 25 mg PO TID [facility] Last Admin: 10/30/18 06:19 Dose: 25 mg Clopidogrel Bisulfate (Plavix -) 75 mg PO DAILY [facility] Last Admin: 10/30/18 10:17 Dose: 75 mg Enoxaparin Sodium (Lovenox -) 40 mg SQ DAILY [facility] Last Admin: 10/30/18 10:18 Dose: 40 mg Gabapentin (Neurontin -) 100 mg PO HS [facility] Last Admin: 10/29/18 22:02 Dose: 100 mg Guaifenesin (Robitussin -) 5 ml PO TID [facility] Last Admin: 10/30/18 06:19 Dose: 5 ml Doxycycline Hyclate 100 mg/ (Dextrose) 100 mls @ 100 mls/hr IVPB BID [facility] Last Admin: 10/30/18 10:18 Dose: 100 mls/hr Aztreonam 1 gm/ Dextrose 50 mls @ 100 mls/hr IVPB Q8H-IV [facility]; Protocol Last Admin: 10/30/18 10:18 Dose: 100 mls/hr Methylprednisolone Sodium Succinate (Solu-Medrol -) 40 mg IVPUSH DAILY [facility] Last Admin: 10/30/18 10:17 Dose: 40 mg Metoprolol Succinate (Toprol Xl -) 50 mg PO DAILY [facility] Last Admin: 10/30/18 10:17 Dose: 50 mg Pantoprazole Sodium (Protonix Iv) 40 mg IVPUSH DAILY [facility] Last Admin: 10/30/18 10:16 Dose: 40 mg Polyethylene Glycol (Miralax (For Daily Use) -) 17 gm PO DAILY [facility] Last Admin: 10/30/18 10:18 Dose: Not Given Senna (Senna -) 2 tab PO HS PRN PRN Reason: CONSTIPATION Sodium Chloride (Sodium Chloride Tablet -) 1 gm PO DAILY [facility] Last Admin: 10/30/18 10:17 Dose: 1 gm Valsartan (Diovan -) 320 mg PO DAILY [facility] Last Admin: 10/30/18 10:18 Dose: 320 mg - Objective Vital Signs: Vital Signs Temperature 98.2 F 10/30/18 09:00 Pulse Rate 62 10/30/18 09:00 Respiratory Rate 18 10/30/18 09:00 Blood Pressure 138/67 10/30/18 09:00 O2 Sat by Pulse Oximetry (%) 98 10/30/18 09:00 Constitutional: Yes: No Distress Eyes: Yes: Conjunctiva Clear Cardiovascular: Yes: Regular Rate and Rhythm, S1, S2 Respiratory: Yes: Other (CREPITATIONS, BASES) Edema: No Labs: CBC, BMP 10/30/18 06:00 10/30/18 06:00 INR, PTT INR 1.05 (0.83-1.09) 10/27/18 07:15 Assessment/Plan R/O HCAP ?SCLERODERMA LUNG MULTIPLE ANTIBIOTIC ALLERGIES CONTINUE AZTREONAM/ DOXYCYCLINE VANCOMYCIN ON HOLD REPEAT CXR
--- NOTE | 2018-10-30 15:27 | PN ---
Physical Exam: SUBJECTIVE: Patient seen and examined; still with complaints of weakness; not hypoxic; OBJECTIVE: Vital Signs Period Temp Pulse Resp BP Sys/Stewart Pulse Ox Last 24 Hr 97 F-98.2 F 55-63 16-20 125-144/56-72 94-98 GENERAL: The patient is awake, alert, and fully oriented, in no acute distress. HEAD: Normal with no signs of trauma. LUNGS: course b/l breath sounds HEART: Regular rate and rhythm, S1, S2 without murmur, rub or gallop. ABDOMEN: Soft, nontender, nondistended, normoactive bowel sounds, no guarding, no rebound, no hepatosplenomegaly, no masses. EXTREMITIES: 2+ pulses, warm, well-perfused, no edema. NEUROLOGICAL: Cranial nerves II through XII grossly intact. Normal speech, gait not observed. PSYCH: anxious SKIN: Warm, dry, normal turgor, no rashes or lesions noted Laboratory Results - last 24 hr 10/30/18 10/30/18 10/30/18 06:00 06:00 06:00 WBC 9.8 RBC 3.31 L Hgb 10.2 L Hct 30.4 L MCV 91.8 MCH 30.7 MCHC 33.4 RDW 14.0 Plt Count 583 H MPV 7.7 Absolute Neuts (auto) 8.3 H Neutrophils % 84.3 H Lymphocytes % 11.8 Monocytes % 3.8 Eosinophils % 0.0 Basophils % 0.1 Nucleated RBC % 0 Sodium 134 L Potassium 4.4 Chloride 102 Carbon Dioxide 23 Anion Gap 9 BUN 24 H Creatinine 0.8 Creat Clearance w eGFR 68.34 Random Glucose 81 Calcium 8.8 Phosphorus 3.3 Magnesium 1.4 L Ferritin 95.4 Vitamin B12 656 Serum Folate 14 Random Vancomycin 19.4 Active Medications Generic Name Dose Route Start Last Admin Trade Name Freq PRN Reason Stop Dose Admin Amlodipine Besylate 10 mg 10/27/18 10:00 10/30/18 10:17 Norvasc - PO 10 mg DAILY [facility] Administration Atorvastatin Calcium 20 mg 10/26/18 22:00 10/29/18 22:02 Lipitor - PO 20 mg HS [facility] Administration Bethanechol Chloride 25 mg 10/26/18 22:00 10/30/18 06:19 Urecholine - PO 25 mg TID [facility] Administration Clopidogrel Bisulfate 75 mg 10/27/18 10:00 10/30/18 10:17 Plavix - PO 75 mg DAILY [facility] Administration Enoxaparin Sodium 40 mg 10/27/18 10:00 10/30/18 10:18 Lovenox - SQ 40 mg DAILY [facility] Administration Gabapentin 100 mg 10/26/18 22:00 10/29/18 22:02 Neurontin - PO 100 mg HS [facility] Administration Guaifenesin 5 ml 10/26/18 22:00 10/30/18 06:19 Robitussin - PO 5 ml TID [facility] Administration Doxycycline Hyclate 100 mg/ 100 mls @ 100 mls/hr 10/26/18 22:00 10/30/18 10: 18 Dextrose IVPB 100 mls/hr BID [facility] Administration Aztreonam 1 gm/ Dextrose 50 mls @ 100 mls/hr 10/27/18 18:00 10/30/18 10:18 IVPB 100 mls/hr Q8H-IV [facility] Administration Protocol Methylprednisolone Sodium Succinate 40 mg 10/27/18 15:15 10/30/18 10:17 Solu-Medrol - IVPUSH 40 mg DAILY [facility] Administration Metoprolol Succinate 50 mg 10/27/18 10:00 10/30/18 10:17 Toprol Xl - PO 50 mg DAILY [facility] Administration Pantoprazole Sodium 40 mg 10/27/18 14:45 10/30/18 10:16 Protonix Iv IVPUSH 40 mg DAILY [facility] Administration Polyethylene Glycol 17 gm 10/27/18 10:00 10/30/18 10:18 Miralax (For Daily Use) - PO Not Given DAILY [facility] Senna 2 tab 10/26/18 21:43 Senna - PO HS PRN CONSTIPATION Sodium Chloride 1 gm 10/27/18 10:00 10/30/18 10:17 Sodium Chloride Tablet - PO 1 gm DAILY [facility] Administration Valsartan 320 mg 10/27/18 10:00 10/30/18 10:18 Diovan - PO 320 mg DAILY [facility] Administration ASSESSMENT/PLAN: This is a 83 year old female with a history of scleroderma, pulm fibrosis, atrial fibrillation not on AC, Raynauds, SIADH, recent RLE cellulitis, s/p rehab ; found to be sob at rehab, here for PNA. #HCAP -IV antibiotics Aztreonam/Doxycycline/vanco -urine pna negative -sputm cx -ID /pulm following #Pulm fibrosis;scleroderma -CT noted; progressive vs from PNA; -cont IV antibitocs; -inhaled broncodilators -cont steroids taper as per clinical evaluation -evaled by rheum; no immunomodulators at this time -outpatient repeat CT and pulm function testing #urinary retention; with wilson ; voiding trial ; ambulate #anemia with thrombocytosis -iron studies; b12, folate -heme f/u oupt for thrombocytosis #afib; not on AC; on plavix? #SIADH; chronic; stable on salt tabs #HTN: stable #HLD: stable Physical therapy VTE: ppl heparinsq GI : protonix PLan; d/c back to snf tommorrow? Visit type - Emergency Visit Emergency Visit: Yes ED Registration Date: 10/26/18 Care time: The patient presented to the Emergency Department on the above date and was hospitalized for further evaluation of their emergent condition. - New Patient This patient is new to me today: No - Critical Care Critical Care patient: No
[2018-10-30] MEDS: ATORVASTATIN CA 20 MG TABLET (FP) PO SCH (21:56)
[2018-10-30] MEDS: GABAPENTIN 100 MG CAPSULE (FP) PO SCH (21:56)
[2018-10-31] MEDS ORDERED: PT OWN MED DRAWER 7, Y5N ONE ×3 (02:40→16:10)
[2018-10-31] MEDS: AZTREONAM 1 GM in DEXTROSE 5%-WATER - 50 ML IVPB SCH ×3 (02:59→18:24)
[2018-10-31 04:12] LABS: SERUM IRON SATURATION 15 % (15-55); TOTAL IRON BINDING CAPACITY 277 ug/dL (250-450); UIBC 235 ug/dL (118-369)
[2018-10-31] MEDS: guaiFENesin 200 MG/10 ML 10 ML UNIT-DOSE CUPS PO SCH ×3 (05:57→22:31)
[2018-10-31] MEDS: BETHANECHOL CHLORIDE 25 MG TABLET PO SCH ×3 (05:58→22:32)
[2018-10-31 08:02] LABS: BASO % 0.1 % (0-2.0); HEMATOCRIT 32.6 % (32.4-45.2); HEMOGLOBIN 10.8 GM/dL (10.7-15.3); LYMPH % 15.1 % (8-40); MCH 30.4 pg (25.7-33.7); MCHC 33.3 g/dl (32.0-36.0); MEAN CELL VOLUME 91.3 fl (80-96); MEAN PLT VOLUME 7.7 fl (7.5-11.1); MONO % 6.9 % (3.8-10.2); NEUT % 77.9 % (42.8-82.8); PLATELET COUNT 572 K/MM3 (134-434); RBC 3.57 M/mm3 (3.60-5.2); RDW 14.1 % (11.6-15.6); WHITE BLOOD COUNT 10.6 K/mm3 (4.0-10.0)
[2018-10-31 08:27] LABS: BLOOD UREA NITROGEN 30 mg/dL (7-18); CALCIUM 9.1 mg/dL (8.5-10.1); CHLORIDE 103 mmol/L (98-107); CO2 24 mmol/L (21-32); CREATININE 0.8 mg/dL (0.55-1.3); GLUCOSE,RANDOM 77 mg/dL (74-106); MAGNESIUM 1.6 mg/dL (1.8-2.4); PHOSPHOROUS 3.1 mg/dL (2.5-4.9); POTASSIUM 4.7 mmol/L (3.5-5.1); SODIUM 135 mmol/L (136-145)
[2018-10-31 08:31] LABS: ANION GAP 9 MMOL/L (8-16)
[2018-10-31] MEDS: methylPREDNISolone NA SUCC 40 MG/1 ML VIAL IVPUSH SCH (11:19)
[2018-10-31] MEDS: PANTOPRAZOLE SODIUM 40 MG VIAL IVPUSH SCH (11:20)
[2018-10-31] MEDS: ENOXAPARIN NA (PORCINE) 40 MG/0.4 ML DISP.SYRIN SQ SCH (11:22)
[2018-10-31] MEDS: SODIUM CHLORIDE 1 GM TABLET PO SCH (11:23)
[2018-10-31] MEDS: CLOPIDOGREL BISULFATE 75 MG TABLET (FP) PO SCH (11:24)
[2018-10-31] MEDS: DOXYCYCLINE INJECTION 100 MG in DEXTROSE 5%-WATER - 100 ML IVPB SCH ×2 (11:25→22:31)
[2018-10-31] MEDS: VALSARTAN 160 MG TABLET (UD) PO SCH (11:27)
[2018-10-31] MEDS: amLODIPine BESYLATE 10 MG TABLET (FP) PO SCH (11:27)
[2018-10-31] MEDS: POLYETHYLENE GLYCOL 3350 119 GM BTL PO SCH (11:28)
--- NOTE | 2018-10-31 13:51 | PN ---
Progress Note, Physician History of Present Illness: OOB IN CHAIR STILL WITH COUGH NOW WITH COMPLAINTS OF RIKI HEMOPTYSIS NO C/O CHEST PAIN/ DYSPNEA AFEBRILE WBC WNL VANCO TROUGH NOTED - Current Medication List Current Medications: Active Medications Amlodipine Besylate (Norvasc -) 10 mg PO DAILY [facility] Last Admin: 10/31/18 11:27 Dose: 10 mg Atorvastatin Calcium (Lipitor -) 20 mg PO HS [facility] Last Admin: 10/30/18 21:56 Dose: 20 mg Bethanechol Chloride (Urecholine -) 25 mg PO TID [facility] Last Admin: 10/31/18 05:58 Dose: 25 mg Clopidogrel Bisulfate (Plavix -) 75 mg PO DAILY [facility] Last Admin: 10/31/18 11:24 Dose: 75 mg Gabapentin (Neurontin -) 100 mg PO HS [facility] Last Admin: 10/30/18 21:56 Dose: 100 mg Guaifenesin (Robitussin -) 5 ml PO TID [facility] Last Admin: 10/31/18 05:57 Dose: 5 ml Doxycycline Hyclate 100 mg/ (Dextrose) 100 mls @ 100 mls/hr IVPB BID [facility] Last Admin: 10/31/18 11:25 Dose: 100 mls/hr Aztreonam 1 gm/ Dextrose 50 mls @ 100 mls/hr IVPB Q8H-IV [facility]; Protocol Last Admin: 10/31/18 11:27 Dose: 100 mls/hr Methylprednisolone Sodium Succinate (Solu-Medrol -) 40 mg IVPUSH DAILY [facility] Last Admin: 10/31/18 11:19 Dose: 40 mg Metoprolol Succinate (Toprol Xl -) 50 mg PO DAILY [facility] Last Admin: 10/31/18 11:25 Dose: 50 mg Pantoprazole Sodium (Protonix Iv) 40 mg IVPUSH DAILY [facility] Last Admin: 10/31/18 11:20 Dose: 40 mg Polyethylene Glycol (Miralax (For Daily Use) -) 17 gm PO DAILY [facility] Last Admin: 10/31/18 11:28 Dose: 17 grams Senna (Senna -) 2 tab PO HS PRN PRN Reason: CONSTIPATION Sodium Chloride (Sodium Chloride Tablet -) 1 gm PO DAILY [facility] Last Admin: 10/31/18 11:23 Dose: 1 gm Valsartan (Diovan -) 320 mg PO DAILY [facility] Last Admin: 10/31/18 11:27 Dose: 320 mg - Objective Vital Signs: Vital Signs Temperature 97.7 F 10/31/18 05:44 Pulse Rate 59 L 10/31/18 05:44 Respiratory Rate 18 10/31/18 05:44 Blood Pressure 152/59 L 10/31/18 05:44 O2 Sat by Pulse Oximetry (%) 98 10/30/18 21:00 Constitutional: Yes: No Distress Eyes: Yes: Conjunctiva Clear Cardiovascular: Yes: Regular Rate and Rhythm, S1, S2 Respiratory: Yes: Rhonchi Gastrointestinal: Yes: Normal Bowel Sounds, Soft. No: Tenderness Labs: CBC, BMP 10/31/18 06:30 10/31/18 06:30 INR, PTT INR 1.05 (0.83-1.09) 10/27/18 07:15 Assessment/Plan R/O HCAP HEMOPYTSIS ?SCLERODERMA LUNG MULTIPLE ANTIBIOTIC ALLERGIES CONTINUE AZTREONAM/ DOXYCYCLINE RESUME VANCOMYCIN
--- NOTE | 2018-10-31 15:14 | PN ---
Progress Note, Physician History of Present Illness: PULMONARY alert oob-chair,+ episode of hemoptysis earlier bright red blood,+ epistaxis resolved - Current Medication List Current Medications: Active Medications Amlodipine Besylate (Norvasc -) 10 mg PO DAILY [facility] Last Admin: 10/31/18 11:27 Dose: 10 mg Atorvastatin Calcium (Lipitor -) 20 mg PO HS [facility] Last Admin: 10/30/18 21:56 Dose: 20 mg Bethanechol Chloride (Urecholine -) 25 mg PO TID [facility] Last Admin: 10/31/18 05:58 Dose: 25 mg Clopidogrel Bisulfate (Plavix -) 75 mg PO DAILY [facility] Last Admin: 10/31/18 11:24 Dose: 75 mg Gabapentin (Neurontin -) 100 mg PO HS [facility] Last Admin: 10/30/18 21:56 Dose: 100 mg Guaifenesin (Robitussin -) 5 ml PO TID [facility] Last Admin: 10/31/18 05:57 Dose: 5 ml Doxycycline Hyclate 100 mg/ (Dextrose) 100 mls @ 100 mls/hr IVPB BID [facility] Last Admin: 10/31/18 11:25 Dose: 100 mls/hr Aztreonam 1 gm/ Dextrose 50 mls @ 100 mls/hr IVPB Q8H-IV [facility]; Protocol Last Admin: 10/31/18 11:27 Dose: 100 mls/hr Vancomycin HCl 750 mg/ (Dextrose) 250 mls @ 150 mls/hr IVPB Q24H [facility]; Protocol Methylprednisolone Sodium Succinate (Solu-Medrol -) 40 mg IVPUSH DAILY [facility] Last Admin: 10/31/18 11:19 Dose: 40 mg Metoprolol Succinate (Toprol Xl -) 50 mg PO DAILY [facility] Last Admin: 10/31/18 11:25 Dose: 50 mg Pantoprazole Sodium (Protonix Iv) 40 mg IVPUSH DAILY [facility] Last Admin: 10/31/18 11:20 Dose: 40 mg Polyethylene Glycol (Miralax (For Daily Use) -) 17 gm PO DAILY [facility] Last Admin: 10/31/18 11:28 Dose: 17 grams Senna (Senna -) 2 tab PO HS PRN PRN Reason: CONSTIPATION Sodium Chloride (Sodium Chloride Tablet -) 1 gm PO DAILY [facility] Last Admin: 10/31/18 11:23 Dose: 1 gm Valsartan (Diovan -) 320 mg PO DAILY [facility] Last Admin: 10/31/18 11:27 Dose: 320 mg - Objective Vital Signs: Vital Signs Temperature 97.6 F 10/31/18 15:04 Pulse Rate 64 10/31/18 15:04 Respiratory Rate 18 10/31/18 15:04 Blood Pressure 133/67 10/31/18 15:04 O2 Sat by Pulse Oximetry (%) 98 10/30/18 21:00 Constitutional: Yes: Calm, Thin Eyes: Yes: WNL HENT: Yes: WNL Neck: Yes: WNL Cardiovascular: Yes: Pulse Irregular, S1, S2 Respiratory: Yes: Rhonchi (few rhonchi) Gastrointestinal: Yes: Normal Bowel Sounds, Soft Extremities: Yes: WNL Edema: No Labs: CBC, BMP 10/31/18 06:30 10/31/18 06:30 INR, PTT INR 1.05 (0.83-1.09) 10/27/18 07:15 Assessment/Plan Problem List - Problems (1) Atrial fibrillation Code(s): I48.91 - UNSPECIFIED ATRIAL FIBRILLATION Qualifiers: Atrial fibrillation type: chronic Qualified Code(s): I48.2 - Chronic atrial fibrillation (2) Pneumonia Code(s): J18.9 - PNEUMONIA, UNSPECIFIED ORGANISM Qualifiers: Pneumonia type: due to unspecified organism Laterality: unspecified laterality Lung location: unspecified part of lung Qualified Code(s): J18.9 - Pneumonia, unspecified organism (3) Scleroderma Code(s): M34.9 - SYSTEMIC SCLEROSIS, UNSPECIFIED (4) HLD (hyperlipidemia) Code(s): E78.5 - HYPERLIPIDEMIA, UNSPECIFIED (5) HTN (hypertension) Code(s): I10 - ESSENTIAL (PRIMARY) HYPERTENSION Assessment/Plan Medrol ABX per ID O2 as needed AC quantify hemoptysis Will need followup imaging and PFTs in about [address] GARDNER Problem List - Problems (1) Atrial fibrillation Code(s): I48.91 - UNSPECIFIED ATRIAL FIBRILLATION Qualifiers: Atrial fibrillation type: chronic Qualified Code(s): I48.2 - Chronic atrial fibrillation (2) Pneumonia Code(s): J18.9 - PNEUMONIA, UNSPECIFIED ORGANISM Qualifiers: Pneumonia type: due to unspecified organism Laterality: unspecified laterality Lung location: unspecified part of lung Qualified Code(s): J18.9 - Pneumonia, unspecified organism (3) Scleroderma Code(s): M34.9 - SYSTEMIC SCLEROSIS, UNSPECIFIED (4) HLD (hyperlipidemia) Code(s): E78.5 - HYPERLIPIDEMIA, UNSPECIFIED (5) HTN (hypertension) Code(s): I10 - ESSENTIAL (PRIMARY) HYPERTENSION
[2018-10-31] MEDS: VANCOMYCIN 750 MG in DEXTROSE 5%-WATER - 250 ML IVPB SCH (16:15)
--- NOTE | 2018-10-31 18:36 | PN ---
Physical Exam: SUBJECTIVE: Patient seen and examined; episode of hemoptysis this am; with nose bleed OBJECTIVE: Vital Signs Period Temp Pulse Resp BP Sys/Stewart Pulse Ox Last 24 Hr 97.6 F-98.5 F 59-75 18-18 133-152/59-68 98 GENERAL: The patient is awake, alert, and fully oriented, in no acute distress. NOSE: + bleed left NECK: Trachea midline, full range of motion, supple. LUNGS: course breath dounds improved HEART: Regular rate and rhythm, S1, S2 without murmur, rub or gallop. ABDOMEN: Soft, nontender, nondistended, normoactive bowel sounds, no guarding, no rebound, no hepatosplenomegaly, no masses. EXTREMITIES: 2+ pulses, warm, well-perfused, no edema. NEUROLOGICAL: Cranial nerves II through XII grossly intact. Normal speech, gait not observed. PSYCH: Normal mood, normal affect. SKIN: Warm, dry, normal turgor, no rashes or lesions noted Laboratory Results - last 24 hr 10/30/18 10/31/18 10/31/18 06:00 06:30 06:30 WBC 10.6 H RBC 3.57 L Hgb 10.8 Hct 32.6 MCV 91.3 MCH 30.4 MCHC 33.3 RDW 14.1 Plt Count 572 H MPV 7.7 Absolute Neuts (auto) 8.2 H Neutrophils % 77.9 Lymphocytes % 15.1 D Monocytes % 6.9 D Eosinophils % 0.0 Basophils % 0.1 Nucleated RBC % 0 Sodium Potassium Chloride Carbon Dioxide Anion Gap BUN Creatinine Creat Clearance w eGFR Random Glucose Calcium Phosphorus Magnesium Iron 42 TIBC 277 Iron Saturation 15 Random Vancomycin 12.7 L 10/31/18 06:30 WBC RBC Hgb Hct MCV MCH MCHC RDW Plt Count MPV Absolute Neuts (auto) Neutrophils % Lymphocytes % Monocytes % Eosinophils % Basophils % Nucleated RBC % Sodium 135 L Potassium 4.7 Chloride 103 Carbon Dioxide 24 Anion Gap 9 BUN 30 H Creatinine 0.8 Creat Clearance w eGFR 68.34 Random Glucose 77 Calcium 9.1 Phosphorus 3.1 Magnesium 1.6 L Iron TIBC Iron Saturation Random Vancomycin Active Medications Generic Name Dose Route Start Last Admin Trade Name Freq PRN Reason Stop Dose Admin Amlodipine Besylate 10 mg 10/27/18 10:00 10/31/18 11:27 Norvasc - PO 10 mg DAILY [facility] Administration Atorvastatin Calcium 20 mg 10/26/18 22:00 10/30/18 21:56 Lipitor - PO 20 mg HS [facility] Administration Bethanechol Chloride 25 mg 10/26/18 22:00 10/31/18 15:46 Urecholine - PO 25 mg TID [facility] Administration Clopidogrel Bisulfate 75 mg 10/27/18 10:00 10/31/18 11:24 Plavix - PO 75 mg DAILY [facility] Administration Gabapentin 100 mg 10/26/18 22:00 10/30/18 21:56 Neurontin - PO 100 mg HS [facility] Administration Guaifenesin 5 ml 10/26/18 22:00 10/31/18 15:46 Robitussin - PO 5 ml TID [facility] Administration Doxycycline Hyclate 100 mg/ 100 mls @ 100 mls/hr 10/26/18 22:00 10/31/18 11: 25 Dextrose IVPB 100 mls/hr BID [facility] Administration Aztreonam 1 gm/ Dextrose 50 mls @ 100 mls/hr 10/27/18 18:00 10/31/18 18:24 IVPB 100 mls/hr Q8H-IV [facility] Administration Protocol Vancomycin HCl 750 mg/ 250 mls @ 150 mls/hr 10/31/18 15:00 10/31/18 16:15 Dextrose IVPB 150 mls/hr Q24H [facility] Administration Protocol Methylprednisolone Sodium Succinate 40 mg 10/27/18 15:15 10/31/18 11:19 Solu-Medrol - IVPUSH 40 mg DAILY [facility] Administration Metoprolol Succinate 50 mg 10/27/18 10:00 10/31/18 11:25 Toprol Xl - PO 50 mg DAILY [facility] Administration Pantoprazole Sodium 40 mg 10/27/18 14:45 10/31/18 11:20 Protonix Iv IVPUSH 40 mg DAILY [facility] Administration Polyethylene Glycol 17 gm 10/27/18 10:00 10/31/18 11:28 Miralax (For Daily Use) - PO 17 grams DAILY [facility] Administration Senna 2 tab 10/26/18 21:43 Senna - PO HS PRN CONSTIPATION Sodium Chloride 1 gm 10/27/18 10:00 10/31/18 11:23 Sodium Chloride Tablet - PO 1 gm DAILY [facility] Administration Valsartan 320 mg 10/27/18 10:00 10/31/18 11:27 Diovan - PO 320 mg DAILY [facility] Administration ASSESSMENT/PLAN: This is a 83 year old female with a history of scleroderma, pulm fibrosis, atrial fibrillation not on AC, Raynauds, SIADH, recent RLE cellulitis, s/p rehab ; found to be sob at rehab, here for PNA. #hemoptysis with nose bleed; monitor count; measure amount #HCAP -IV antibiotics Aztreonam/Doxycycline/vanco -urine pna negative -sputm cx -ID /pulm following #Pulm fibrosis;scleroderma -CT noted; progressive vs from PNA; -cont IV antibitocs; -inhaled broncodilators -cont steroids taper as per clinical evaluation -evaled by rheum; no immunomodulators at this time -outpatient repeat CT and pulm function testing #urinary retention; with wilson ; voiding trial ; ambulate #anemia with thrombocytosis -iron studies; b12, folate -heme f/u oupt for thrombocytosis #afib; not on AC; on plavix? 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 - New Patient This patient is new to me today: No - Critical Care Critical Care patient: No
--- NOTE | 2018-10-31 18:55 | PN ---
Teaching Attending Note Name of Resident: Zulma Sánchez ATTENDING PHYSICIAN STATEMENT I saw and evaluated the patient. I reviewed the resident's note and discussed the case with the resident. I agree with the resident's findings and plan as documented. SUBJECTIVE: Ms Dillon had hemoptysis and nose bleeding early this am. Complains of weakness. Denies cp, sob, n/v. OBJECTIVE: Last Vital Signs Temp Pulse Resp BP Pulse Ox 36.4 C 64 18 133/67 98 10/31/18 15:04 10/31/18 15:04 10/31/18 15:04 10/31/18 15:04 10/30/18 21:00 Gen: nad Pulm: ronchi in all lung mejia but much improved today CV: rrr w/o m/r/g Abd: +bs, s/nt/nd Ext: no c/c/e CBC, BMP 10/31/18 06:30 10/31/18 06:30 ASSESSMENT AND PLAN: (1) Pneumonia Assessment/Plan: -continue aztreonam and doxycycline -vancomycin added -will need long course -plan for PICC line and discharge Saturday if stable Code(s): J18.9 - PNEUMONIA, UNSPECIFIED ORGANISM Qualifiers: Pneumonia type: due to unspecified organism Laterality: unspecified laterality Lung location: unspecified part of lung Qualified Code(s): J18.9 - Pneumonia, unspecified organism (2) Scleroderma Assessment/Plan: -appreciate rheumatology assistance and note reviewed -on daily medrol -pulmonary following Code(s): M34.9 - SYSTEMIC SCLEROSIS, UNSPECIFIED (3) Atrial fibrillation Assessment/Plan: -currently sounds in sinus rhythm -continue toprol xl Code(s): I48.91 - UNSPECIFIED ATRIAL FIBRILLATION Qualifiers: Atrial fibrillation type: chronic Qualified Code(s): I48.2 - Chronic atrial fibrillation (4) HLD (hyperlipidemia) Assessment/Plan: continue statin Code(s): E78.5 - HYPERLIPIDEMIA, UNSPECIFIED (5) HTN (hypertension) Assessment/Plan: -well controlled -continue current management Code(s): I10 - ESSENTIAL (PRIMARY) HYPERTENSION (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) Assessment/Plan: -continue salt tablets (7) Urinary retention Assessment/Plan: -remove wilson Code(s): R33.9 - RETENTION OF URINE, UNSPECIFIED (8) Epistaxis -suspect epistaxis caused hemoptysis as opposed to true hemoptysis -patient is on plavix, will monitor over the weekend since not clear if true hemoptysis -continue nasal pressure (9) Hemoptysis -as above -pulmonary following Problem List - Problems (1) Pneumonia Code(s): J18.9 - PNEUMONIA, UNSPECIFIED ORGANISM Qualifiers: Pneumonia type: due to unspecified organism Laterality: unspecified laterality Lung location: unspecified part of lung Qualified Code(s): J18.9 - Pneumonia, unspecified organism (2) Scleroderma Code(s): M34.9 - SYSTEMIC SCLEROSIS, UNSPECIFIED (3) Atrial fibrillation Code(s): I48.91 - UNSPECIFIED ATRIAL FIBRILLATION Qualifiers: Atrial fibrillation type: chronic Qualified Code(s): I48.2 - Chronic atrial fibrillation (4) HLD (hyperlipidemia) Code(s): E78.5 - HYPERLIPIDEMIA, UNSPECIFIED (5) HTN (hypertension) Code(s): I10 - ESSENTIAL (PRIMARY) HYPERTENSION (7) Urinary retention Code(s): R33.9 - RETENTION OF URINE, UNSPECIFIED
[2018-10-31] MEDS: GABAPENTIN 100 MG CAPSULE (FP) PO SCH (22:31)
[2018-10-31] MEDS: ATORVASTATIN CA 20 MG TABLET (FP) PO SCH (22:31)
[2018-11-01] MEDS: AZTREONAM 1 GM in DEXTROSE 5%-WATER - 50 ML IVPB SCH ×3 (03:40→17:02)
[2018-11-01] MEDS: guaiFENesin 200 MG/10 ML 10 ML UNIT-DOSE CUPS PO SCH ×3 (05:33→22:38)
[2018-11-01] MEDS: BETHANECHOL CHLORIDE 25 MG TABLET PO SCH ×3 (05:34→22:38)
[2018-11-01 07:41] LABS: BASO % 0.1 % (0-2.0); EOS % 0.1 % (0-4.5); HEMATOCRIT 31.4 % (32.4-45.2); HEMOGLOBIN 10.6 GM/dL (10.7-15.3); LYMPH % 21.7 % (8-40); MCH 30.4 pg (25.7-33.7); MCHC 33.7 g/dl (32.0-36.0); MEAN CELL VOLUME 90.2 fl (80-96); MEAN PLT VOLUME 7.8 fl (7.5-11.1); MONO % 5.7 % (3.8-10.2); NEUT % 72.4 % (42.8-82.8); PLATELET COUNT 537 K/MM3 (134-434); RBC 3.49 M/mm3 (3.60-5.2); WHITE BLOOD COUNT 9.9 K/mm3 (4.0-10.0)
[2018-11-01 08:02] LABS: ANION GAP 9 MMOL/L (8-16); BLOOD UREA NITROGEN 30 mg/dL (7-18); CALCIUM 9.2 mg/dL (8.5-10.1); CHLORIDE 102 mmol/L (98-107); CO2 24 mmol/L (21-32); CREATININE 0.8 mg/dL (0.55-1.3); GLUCOSE,RANDOM 70 mg/dL (74-106); MAGNESIUM 1.9 mg/dL (1.8-2.4); PHOSPHOROUS 3.4 mg/dL (2.5-4.9); POTASSIUM 4.7 mmol/L (3.5-5.1); SODIUM 135 mmol/L (136-145)
--- NOTE | 2018-11-01 09:04 | PN ---
Progress Note, Physician Chief Complaint: Ms Dillon complains of weakness with exertion. Denies cp, sob, n/v. - Current Medication List Current Medications: Active Medications Amlodipine Besylate (Norvasc -) 10 mg PO DAILY [facility] Last Admin: 10/31/18 11:27 Dose: 10 mg Atorvastatin Calcium (Lipitor -) 20 mg PO HS [facility] Last Admin: 10/31/18 22:31 Dose: 20 mg Bethanechol Chloride (Urecholine -) 25 mg PO TID [facility] Last Admin: 11/01/18 05:34 Dose: 25 mg Clopidogrel Bisulfate (Plavix -) 75 mg PO DAILY [facility] Last Admin: 10/31/18 11:24 Dose: 75 mg Gabapentin (Neurontin -) 100 mg PO HS [facility] Last Admin: 10/31/18 22:31 Dose: 100 mg Guaifenesin (Robitussin -) 5 ml PO TID [facility] Last Admin: 11/01/18 05:33 Dose: 5 ml Doxycycline Hyclate 100 mg/ (Dextrose) 100 mls @ 100 mls/hr IVPB BID [facility] Last Admin: 10/31/18 22:31 Dose: 100 mls/hr Aztreonam 1 gm/ Dextrose 50 mls @ 100 mls/hr IVPB Q8H-IV [facility]; Protocol Last Admin: 11/01/18 03:40 Dose: 100 mls/hr Vancomycin HCl 750 mg/ (Dextrose) 250 mls @ 150 mls/hr IVPB Q24H [facility]; Protocol Last Admin: 10/31/18 16:15 Dose: 150 mls/hr Methylprednisolone Sodium Succinate (Solu-Medrol -) 40 mg IVPUSH DAILY [facility] Last Admin: 10/31/18 11:19 Dose: 40 mg Metoprolol Succinate (Toprol Xl -) 50 mg PO DAILY [facility] Last Admin: 10/31/18 11:25 Dose: 50 mg Polyethylene Glycol (Miralax (For Daily Use) -) 17 gm PO DAILY [facility] Last Admin: 10/31/18 11:28 Dose: 17 grams Senna (Senna -) 2 tab PO HS PRN PRN Reason: CONSTIPATION Sodium Chloride (Sodium Chloride Tablet -) 1 gm PO DAILY [facility] Last Admin: 10/31/18 11:23 Dose: 1 gm Valsartan (Diovan -) 320 mg PO DAILY [facility] Last Admin: 10/31/18 11:27 Dose: 320 mg - Objective Vital Signs: Vital Signs Temperature 36.3 C L 11/01/18 05:58 Pulse Rate 63 11/01/18 05:58 Respiratory Rate 18 11/01/18 05:58 Blood Pressure 145/67 11/01/18 05:58 O2 Sat by Pulse Oximetry (%) 95 10/31/18 21:00 Constitutional: Yes: Well Nourished, No Distress, Calm Cardiovascular: Yes: Regular Rate and Rhythm. No: Gallop, Murmur, Rub Respiratory: Yes: Regular, CTA Bilaterally, On Nasal O2. No: Rales, Rhonchi, Wheezes Gastrointestinal: Yes: Normal Bowel Sounds, Soft. No: Distention, Tenderness Extremities: Yes: WNL Edema: No Labs: CBC, BMP 11/01/18 05:00 11/01/18 05:00 INR, PTT INR 1.05 (0.83-1.09) 10/27/18 07:15 Problem List - Problems (1) Pneumonia Code(s): J18.9 - PNEUMONIA, UNSPECIFIED ORGANISM Qualifiers: Pneumonia type: due to unspecified organism Laterality: unspecified laterality Lung location: unspecified part of lung Qualified Code(s): J18.9 - Pneumonia, unspecified organism (2) Scleroderma Code(s): M34.9 - SYSTEMIC SCLEROSIS, UNSPECIFIED (3) Atrial fibrillation Code(s): I48.91 - UNSPECIFIED ATRIAL FIBRILLATION Qualifiers: Atrial fibrillation type: chronic Qualified Code(s): I48.2 - Chronic atrial fibrillation (4) HLD (hyperlipidemia) Code(s): E78.5 - HYPERLIPIDEMIA, UNSPECIFIED (5) HTN (hypertension) Code(s): I10 - ESSENTIAL (PRIMARY) HYPERTENSION (7) Urinary retention Code(s): R33.9 - RETENTION OF URINE, UNSPECIFIED Assessment/Plan (1) Pneumonia Assessment/Plan: -continue vancomycin, aztreonam, and doxycycline -PICC line Saturday - following Code(s): J18.9 - PNEUMONIA, UNSPECIFIED ORGANISM Qualifiers: Pneumonia type: due to unspecified organism Laterality: unspecified laterality Lung location: unspecified part of lung Qualified Code(s): J18.9 - Pneumonia, unspecified organism (2) Scleroderma Assessment/Plan: -appreciate rheumatology assistance and note reviewed -on daily medrol -pulmonary following Code(s): M34.9 - SYSTEMIC SCLEROSIS, UNSPECIFIED (3) Atrial fibrillation Assessment/Plan: -currently sounds in sinus rhythm -continue toprol xl Code(s): I48.91 - UNSPECIFIED ATRIAL FIBRILLATION Qualifiers: Atrial fibrillation type: chronic Qualified Code(s): I48.2 - Chronic atrial fibrillation (4) HLD (hyperlipidemia) Assessment/Plan: continue statin Code(s): E78.5 - HYPERLIPIDEMIA, UNSPECIFIED (5) HTN (hypertension) Assessment/Plan: -well controlled -continue current management Code(s): I10 - ESSENTIAL (PRIMARY) HYPERTENSION (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) Assessment/Plan: -continue salt tablets (7) Urinary retention Assessment/Plan: -resolved Code(s): R33.9 - RETENTION OF URINE, UNSPECIFIED (8) Epistaxis -resolved (9) Hemoptysis -not true hemoptysis -secondary to epistaxis
[2018-11-01] MEDS: CLOPIDOGREL BISULFATE 75 MG TABLET (FP) PO SCH (10:52)
[2018-11-01] MEDS: VALSARTAN 160 MG TABLET (UD) PO SCH (10:52)
[2018-11-01] MEDS: POLYETHYLENE GLYCOL 3350 119 GM BTL PO SCH (10:52)
[2018-11-01] MEDS: methylPREDNISolone NA SUCC 40 MG/1 ML VIAL IVPUSH SCH (10:53)
[2018-11-01] MEDS: amLODIPine BESYLATE 10 MG TABLET (FP) PO SCH (10:53)
[2018-11-01] MEDS: SODIUM CHLORIDE 1 GM TABLET PO SCH (10:53)
[2018-11-01] MEDS: DOXYCYCLINE INJECTION 100 MG in DEXTROSE 5%-WATER - 100 ML IVPB SCH ×2 (10:54→22:38)
--- NOTE | 2018-11-01 14:48 | PN ---
Progress Note, Physician History of Present Illness: PULMONARY ALERT,OOB-CHAIR,LESS DYSPNEIC,-HEMOPTYSIS - Current Medication List Current Medications: Active Medications Amlodipine Besylate (Norvasc -) 10 mg PO DAILY [facility] Last Admin: 11/01/18 10:53 Dose: 10 mg Atorvastatin Calcium (Lipitor -) 20 mg PO HS [facility] Last Admin: 10/31/18 22:31 Dose: 20 mg Bethanechol Chloride (Urecholine -) 25 mg PO TID [facility] Last Admin: 11/01/18 13:33 Dose: 25 mg Clopidogrel Bisulfate (Plavix -) 75 mg PO DAILY [facility] Last Admin: 11/01/18 10:52 Dose: 75 mg Gabapentin (Neurontin -) 100 mg PO HS [facility] Last Admin: 10/31/18 22:31 Dose: 100 mg Guaifenesin (Robitussin -) 5 ml PO TID [facility] Last Admin: 11/01/18 13:33 Dose: 5 ml Doxycycline Hyclate 100 mg/ (Dextrose) 100 mls @ 100 mls/hr IVPB BID [facility] Last Admin: 11/01/18 10:54 Dose: 100 mls/hr Aztreonam 1 gm/ Dextrose 50 mls @ 100 mls/hr IVPB Q8H-IV [facility]; Protocol Last Admin: 11/01/18 10:51 Dose: 100 mls/hr Vancomycin HCl 750 mg/ (Dextrose) 250 mls @ 150 mls/hr IVPB Q24H [facility]; Protocol Last Admin: 10/31/18 16:15 Dose: 150 mls/hr Methylprednisolone Sodium Succinate (Solu-Medrol -) 40 mg IVPUSH DAILY [facility] Last Admin: 11/01/18 10:53 Dose: 40 mg Metoprolol Succinate (Toprol Xl -) 50 mg PO DAILY [facility] Last Admin: 11/01/18 10:54 Dose: 50 mg Polyethylene Glycol (Miralax (For Daily Use) -) 17 gm PO DAILY [facility] Last Admin: 11/01/18 10:52 Dose: Not Given Senna (Senna -) 2 tab PO HS PRN PRN Reason: CONSTIPATION Sodium Chloride (Sodium Chloride Tablet -) 1 gm PO DAILY [facility] Last Admin: 11/01/18 10:53 Dose: 1 gm Valsartan (Diovan -) 320 mg PO DAILY [facility] Last Admin: 11/01/18 10:52 Dose: 320 mg - Objective Vital Signs: Vital Signs Temperature 97.3 F L 11/01/18 10:00 Pulse Rate 62 11/01/18 10:00 Respiratory Rate 18 11/01/18 10:00 Blood Pressure 135/50 L 11/01/18 10:00 O2 Sat by Pulse Oximetry (%) 95 10/31/18 21:00 Constitutional: Yes: Calm, Thin Eyes: Yes: WNL HENT: Yes: WNL Neck: Yes: WNL Cardiovascular: Yes: Pulse Irregular, S1, S2 Respiratory: Yes: Rales (SCATTERED TAYLA CRACKLES) Gastrointestinal: Yes: Normal Bowel Sounds, Soft Extremities: Yes: WNL Edema: Yes Labs: CBC, BMP 11/01/18 05:00 11/01/18 05:00 INR, PTT INR 1.05 (0.83-1.09) 10/27/18 07:15 Assessment/Plan Problem List - Problems (1) Atrial fibrillation Code(s): I48.91 - UNSPECIFIED ATRIAL FIBRILLATION Qualifiers: Atrial fibrillation type: chronic Qualified Code(s): I48.2 - Chronic atrial fibrillation (2) Pneumonia Code(s): J18.9 - PNEUMONIA, UNSPECIFIED ORGANISM Qualifiers: Pneumonia type: due to unspecified organism Laterality: unspecified laterality Lung location: unspecified part of lung Qualified Code(s): J18.9 - Pneumonia, unspecified organism (3) Scleroderma Code(s): M34.9 - SYSTEMIC SCLEROSIS, UNSPECIFIED (4) HLD (hyperlipidemia) Code(s): E78.5 - HYPERLIPIDEMIA, UNSPECIFIED (5) HTN (hypertension) Code(s): I10 - ESSENTIAL (PRIMARY) HYPERTENSION Assessment/Plan Medrol ABX per ID O2 as needed AC Will need followup imaging and PFTs in about [address] GARDNER Problem List - Problems (1) Atrial fibrillation Code(s): I48.91 - UNSPECIFIED ATRIAL FIBRILLATION Qualifiers: Atrial fibrillation type: chronic Qualified Code(s): I48.2 - Chronic atrial fibrillation (2) Pneumonia Code(s): J18.9 - PNEUMONIA, UNSPECIFIED ORGANISM Qualifiers: Pneumonia type: due to unspecified organism Laterality: unspecified laterality Lung location: unspecified part of lung Qualified Code(s): J18.9 - Pneumonia, unspecified organism (3) Scleroderma Code(s): M34.9 - SYSTEMIC SCLEROSIS, UNSPECIFIED (4) HLD (hyperlipidemia) Code(s): E78.5 - HYPERLIPIDEMIA, UNSPECIFIED (5) HTN (hypertension) Code(s): I10 - ESSENTIAL (PRIMARY) HYPERTENSION
[2018-11-01] MEDS: VANCOMYCIN 750 MG in DEXTROSE 5%-WATER - 250 ML IVPB SCH (15:25)
[2018-11-01] MEDS: ATORVASTATIN CA 20 MG TABLET (FP) PO SCH (22:37)
[2018-11-01] MEDS: GABAPENTIN 100 MG CAPSULE (FP) PO SCH (22:37)
[2018-11-02] MEDS: AZTREONAM 1 GM in DEXTROSE 5%-WATER - 50 ML IVPB SCH ×3 (01:01→17:10)
[2018-11-02] MEDS: guaiFENesin 200 MG/10 ML 10 ML UNIT-DOSE CUPS PO SCH ×3 (06:23→22:02)
[2018-11-02] MEDS: BETHANECHOL CHLORIDE 25 MG TABLET PO SCH ×3 (06:23→22:49)
[2018-11-02 08:05] LABS: BASO % 0.1 % (0-2.0); HEMATOCRIT 32.7 % (32.4-45.2); LYMPH % 20.3 % (8-40); MCH 30.5 pg (25.7-33.7); MCHC 33.7 g/dl (32.0-36.0); MEAN CELL VOLUME 90.5 fl (80-96); MEAN PLT VOLUME 7.7 fl (7.5-11.1); MONO % 5.6 % (3.8-10.2); PLATELET COUNT 511 K/MM3 (134-434); RBC 3.61 M/mm3 (3.60-5.2); RDW 13.6 % (11.6-15.6); WHITE BLOOD COUNT 9.4 K/mm3 (4.0-10.0)
[2018-11-02 08:22] LABS: ANION GAP 7 MMOL/L (8-16); BLOOD UREA NITROGEN 29 mg/dL (7-18); CALCIUM 8.8 mg/dL (8.5-10.1); CHLORIDE 102 mmol/L (98-107); CO2 25 mmol/L (21-32); CREATININE 0.7 mg/dL (0.55-1.3); GLUCOSE,RANDOM 75 mg/dL (74-106); MAGNESIUM 1.6 mg/dL (1.8-2.4); PHOSPHOROUS 3.5 mg/dL (2.5-4.9); POTASSIUM 4.6 mmol/L (3.5-5.1); SODIUM 134 mmol/L (136-145)
[2018-11-02] MEDS: DOXYCYCLINE INJECTION 100 MG in DEXTROSE 5%-WATER - 100 ML IVPB SCH ×2 (09:50→22:03)
[2018-11-02] MEDS: CLOPIDOGREL BISULFATE 75 MG TABLET (FP) PO SCH (09:50)
[2018-11-02] MEDS: SODIUM CHLORIDE 1 GM TABLET PO SCH (09:50)
[2018-11-02] MEDS: VALSARTAN 160 MG TABLET (UD) PO SCH (09:51)
[2018-11-02] MEDS: amLODIPine BESYLATE 10 MG TABLET (FP) PO SCH (09:51)
[2018-11-02] MEDS: methylPREDNISolone NA SUCC 40 MG/1 ML VIAL IVPUSH SCH (09:51)
[2018-11-02] MEDS: POLYETHYLENE GLYCOL 3350 119 GM BTL PO SCH (10:06)
--- NOTE | 2018-11-02 13:43 | PN ---
Progress Note, Physician History of Present Illness: OOB IN CHAIR C/O GENERALIZED WEAKNESS OCCASIONAL COUGH -IMPROVED NO HEMOPTYSIS NO C/O CHEST PAIN/ DYSPNEA AFEBRILE WBC WNL VANCO TROUGH NOTED - Current Medication List Current Medications: Active Medications Amlodipine Besylate (Norvasc -) 10 mg PO DAILY [facility] Last Admin: 11/02/18 09:51 Dose: 10 mg Atorvastatin Calcium (Lipitor -) 20 mg PO HS [facility] Last Admin: 11/01/18 22:37 Dose: 20 mg Bethanechol Chloride (Urecholine -) 25 mg PO TID [facility] Last Admin: 11/02/18 06:23 Dose: 25 mg Clopidogrel Bisulfate (Plavix -) 75 mg PO DAILY [facility] Last Admin: 11/02/18 09:50 Dose: 75 mg Gabapentin (Neurontin -) 100 mg PO HS [facility] Last Admin: 11/01/18 22:37 Dose: 100 mg Guaifenesin (Robitussin -) 5 ml PO TID [facility] Last Admin: 11/02/18 06:23 Dose: 5 ml Doxycycline Hyclate 100 mg/ (Dextrose) 100 mls @ 100 mls/hr IVPB BID [facility] Last Admin: 11/02/18 09:50 Dose: 100 mls/hr Aztreonam 1 gm/ Dextrose 50 mls @ 100 mls/hr IVPB Q8H-IV [facility]; Protocol Last Admin: 11/02/18 09:50 Dose: 100 mls/hr Vancomycin HCl 750 mg/ (Dextrose) 250 mls @ 150 mls/hr IVPB Q24H [facility]; Protocol Last Admin: 11/01/18 15:25 Dose: 150 mls/hr Methylprednisolone Sodium Succinate (Solu-Medrol -) 40 mg IVPUSH DAILY [facility] Last Admin: 11/02/18 09:51 Dose: 40 mg Metoprolol Succinate (Toprol Xl -) 50 mg PO DAILY [facility] Last Admin: 11/02/18 09:51 Dose: 50 mg Polyethylene Glycol (Miralax (For Daily Use) -) 17 gm PO DAILY [facility] Last Admin: 11/02/18 10:06 Dose: Not Given Senna (Senna -) 2 tab PO HS PRN PRN Reason: CONSTIPATION Sodium Chloride (Sodium Chloride Tablet -) 1 gm PO DAILY [facility] Last Admin: 11/02/18 09:50 Dose: 1 gm Valsartan (Diovan -) 320 mg PO DAILY [facility] Last Admin: 11/02/18 09:51 Dose: 320 mg - Objective Vital Signs: Vital Signs Temperature 97.3 F L 11/02/18 09:48 Pulse Rate 59 L 11/02/18 09:48 Respiratory Rate 18 11/02/18 09:48 Blood Pressure 150/64 11/02/18 09:48 O2 Sat by Pulse Oximetry (%) 97 11/02/18 09:00 Constitutional: Yes: No Distress Eyes: Yes: Conjunctiva Clear Cardiovascular: Yes: Regular Rate and Rhythm, S1, S2 Respiratory: Yes: CTA Bilaterally Gastrointestinal: Yes: Normal Bowel Sounds, Soft. No: Tenderness Edema: Yes Edema: LLE: 1+, RLE: 1+ Labs: CBC, BMP 11/02/18 06:10 11/02/18 06:10 INR, PTT INR 1.05 (0.83-1.09) 10/27/18 07:15 Assessment/Plan R/O HCAP HEMOPYTSIS RESOLVED ?SCLERODERMA LUNG MULTIPLE ANTIBIOTIC ALLERGIES CONTINUE AZTREONAM/ DOXYCYCLINE /VANCOMYCIN
--- NOTE | 2018-11-02 14:09 | PN ---
Progress Note, Physician History of Present Illness: pulmonary alert,oob-chair,less dyspneic,feel weak - Current Medication List Current Medications: Active Medications Amlodipine Besylate (Norvasc -) 10 mg PO DAILY [facility] Last Admin: 11/02/18 09:51 Dose: 10 mg Atorvastatin Calcium (Lipitor -) 20 mg PO HS [facility] Last Admin: 11/01/18 22:37 Dose: 20 mg Bethanechol Chloride (Urecholine -) 25 mg PO TID [facility] Last Admin: 11/02/18 06:23 Dose: 25 mg Clopidogrel Bisulfate (Plavix -) 75 mg PO DAILY [facility] Last Admin: 11/02/18 09:50 Dose: 75 mg Gabapentin (Neurontin -) 100 mg PO HS [facility] Last Admin: 11/01/18 22:37 Dose: 100 mg Guaifenesin (Robitussin -) 5 ml PO TID [facility] Last Admin: 11/02/18 06:23 Dose: 5 ml Doxycycline Hyclate 100 mg/ (Dextrose) 100 mls @ 100 mls/hr IVPB BID [facility] Last Admin: 11/02/18 09:50 Dose: 100 mls/hr Aztreonam 1 gm/ Dextrose 50 mls @ 100 mls/hr IVPB Q8H-IV [facility]; Protocol Last Admin: 11/02/18 09:50 Dose: 100 mls/hr Vancomycin HCl 750 mg/ (Dextrose) 250 mls @ 150 mls/hr IVPB Q24H [facility]; Protocol Last Admin: 11/01/18 15:25 Dose: 150 mls/hr Methylprednisolone Sodium Succinate (Solu-Medrol -) 40 mg IVPUSH DAILY [facility] Last Admin: 11/02/18 09:51 Dose: 40 mg Metoprolol Succinate (Toprol Xl -) 50 mg PO DAILY [facility] Last Admin: 11/02/18 09:51 Dose: 50 mg Polyethylene Glycol (Miralax (For Daily Use) -) 17 gm PO DAILY [facility] Last Admin: 11/02/18 10:06 Dose: Not Given Senna (Senna -) 2 tab PO HS PRN PRN Reason: CONSTIPATION Sodium Chloride (Sodium Chloride Tablet -) 1 gm PO DAILY [facility] Last Admin: 11/02/18 09:50 Dose: 1 gm Valsartan (Diovan -) 320 mg PO DAILY [facility] Last Admin: 11/02/18 09:51 Dose: 320 mg - Objective Vital Signs: Vital Signs Temperature 97.9 F 11/02/18 13:47 Pulse Rate 59 L 11/02/18 13:47 Respiratory Rate 20 11/02/18 13:47 Blood Pressure 155/60 11/02/18 13:47 O2 Sat by Pulse Oximetry (%) 97 11/02/18 09:00 Constitutional: Yes: Calm, Thin Eyes: Yes: WNL HENT: Yes: WNL Neck: Yes: WNL Cardiovascular: Yes: Regular Rate and Rhythm, S1, S2 Respiratory: Yes: Rales (bibasilar crackles) Gastrointestinal: Yes: Normal Bowel Sounds, Soft Extremities: Yes: WNL Edema: Yes Labs: CBC, BMP 11/02/18 06:10 11/02/18 06:10 INR, PTT INR 1.05 (0.83-1.09) 10/27/18 07:15 Assessment/Plan Problem List - Problems (1) Atrial fibrillation Code(s): I48.91 - UNSPECIFIED ATRIAL FIBRILLATION Qualifiers: Atrial fibrillation type: chronic Qualified Code(s): I48.2 - Chronic atrial fibrillation (2) Pneumonia Code(s): J18.9 - PNEUMONIA, UNSPECIFIED ORGANISM Qualifiers: Pneumonia type: due to unspecified organism Laterality: unspecified laterality Lung location: unspecified part of lung Qualified Code(s): J18.9 - Pneumonia, unspecified organism (3) Scleroderma Code(s): M34.9 - SYSTEMIC SCLEROSIS, UNSPECIFIED (4) HLD (hyperlipidemia) Code(s): E78.5 - HYPERLIPIDEMIA, UNSPECIFIED (5) HTN (hypertension) Code(s): I10 - ESSENTIAL (PRIMARY) HYPERTENSION Assessment/Plan Prednisone in am ABX per ID O2 as needed AC Will need followup imaging and PFTs in about [address] GARDNER Problem List - Problems (1) Atrial fibrillation Code(s): I48.91 - UNSPECIFIED ATRIAL FIBRILLATION Qualifiers: Atrial fibrillation type: chronic Qualified Code(s): I48.2 - Chronic atrial fibrillation (2) Pneumonia Code(s): J18.9 - PNEUMONIA, UNSPECIFIED ORGANISM Qualifiers: Pneumonia type: due to unspecified organism Laterality: unspecified laterality Lung location: unspecified part of lung Qualified Code(s): J18.9 - Pneumonia, unspecified organism (3) Scleroderma Code(s): M34.9 - SYSTEMIC SCLEROSIS, UNSPECIFIED (4) HLD (hyperlipidemia) Code(s): E78.5 - HYPERLIPIDEMIA, UNSPECIFIED (5) HTN (hypertension) Code(s): I10 - ESSENTIAL (PRIMARY) HYPERTENSION
[2018-11-02] MEDS: VANCOMYCIN 750 MG in DEXTROSE 5%-WATER - 250 ML IVPB SCH (14:48)
--- NOTE | 2018-11-02 15:39 | PN ---
Progress Note, Physician Chief Complaint: Ms Dillon says she feels "lousy". Has no somatic complaints as she denies cp , sob, n/v, or any other concerns. Mainly says she feels weak and fatigued, asks frequently about if she is going to be discharged tomorrow. - Current Medication List Current Medications: Active Medications Amlodipine Besylate (Norvasc -) 10 mg PO DAILY [facility] Last Admin: 11/02/18 09:51 Dose: 10 mg Atorvastatin Calcium (Lipitor -) 20 mg PO HS [facility] Last Admin: 11/01/18 22:37 Dose: 20 mg Bethanechol Chloride (Urecholine -) 25 mg PO TID [facility] Last Admin: 11/02/18 14:49 Dose: 25 mg Clopidogrel Bisulfate (Plavix -) 75 mg PO DAILY [facility] Last Admin: 11/02/18 09:50 Dose: 75 mg Gabapentin (Neurontin -) 100 mg PO HS [facility] Last Admin: 11/01/18 22:37 Dose: 100 mg Guaifenesin (Robitussin -) 5 ml PO TID [facility] Last Admin: 11/02/18 14:49 Dose: 5 ml Doxycycline Hyclate 100 mg/ (Dextrose) 100 mls @ 100 mls/hr IVPB BID [facility] Last Admin: 11/02/18 09:50 Dose: 100 mls/hr Aztreonam 1 gm/ Dextrose 50 mls @ 100 mls/hr IVPB Q8H-IV [facility]; Protocol Last Admin: 11/02/18 09:50 Dose: 100 mls/hr Vancomycin HCl 750 mg/ (Dextrose) 250 mls @ 150 mls/hr IVPB Q24H [facility]; Protocol Last Admin: 11/02/18 14:48 Dose: 150 mls/hr Metoprolol Succinate (Toprol Xl -) 50 mg PO DAILY [facility] Last Admin: 11/02/18 09:51 Dose: 50 mg Polyethylene Glycol (Miralax (For Daily Use) -) 17 gm PO DAILY [facility] Last Admin: 11/02/18 10:06 Dose: Not Given Prednisone (Deltasone -) 40 mg PO DAILY [facility] Senna (Senna -) 2 tab PO HS PRN PRN Reason: CONSTIPATION Sodium Chloride (Sodium Chloride Tablet -) 1 gm PO DAILY [facility] Last Admin: 11/02/18 09:50 Dose: 1 gm Valsartan (Diovan -) 320 mg PO DAILY [facility] Last Admin: 11/02/18 09:51 Dose: 320 mg - Objective Vital Signs: Vital Signs Temperature 36.6 C 11/02/18 13:47 Pulse Rate 59 L 11/02/18 13:47 Respiratory Rate 20 11/02/18 13:47 Blood Pressure 155/60 11/02/18 13:47 O2 Sat by Pulse Oximetry (%) 97 11/02/18 09:00 Constitutional: Yes: Well Nourished, No Distress, Calm Cardiovascular: Yes: Regular Rate and Rhythm. No: Gallop, Murmur, Rub Respiratory: Yes: Regular, CTA Bilaterally. No: Rales, Rhonchi, Wheezes Gastrointestinal: Yes: Normal Bowel Sounds, Soft. No: Distention, Tenderness Extremities: Yes: WNL Edema: No Labs: CBC, BMP 11/02/18 06:10 11/02/18 06:10 INR, PTT INR 1.05 (0.83-1.09) 10/27/18 07:15 Problem List - Problems (1) Pneumonia Code(s): J18.9 - PNEUMONIA, UNSPECIFIED ORGANISM Qualifiers: Pneumonia type: due to unspecified organism Laterality: unspecified laterality Lung location: unspecified part of lung Qualified Code(s): J18.9 - Pneumonia, unspecified organism (2) Scleroderma Code(s): M34.9 - SYSTEMIC SCLEROSIS, UNSPECIFIED (3) Atrial fibrillation Code(s): I48.91 - UNSPECIFIED ATRIAL FIBRILLATION Qualifiers: Atrial fibrillation type: chronic Qualified Code(s): I48.2 - Chronic atrial fibrillation (4) HLD (hyperlipidemia) Code(s): E78.5 - HYPERLIPIDEMIA, UNSPECIFIED (5) HTN (hypertension) Code(s): I10 - ESSENTIAL (PRIMARY) HYPERTENSION (7) Urinary retention Code(s): R33.9 - RETENTION OF URINE, UNSPECIFIED Assessment/Plan (1) Pneumonia Assessment/Plan: -continue vancomycin, aztreonam, and doxycycline -case d/w Dr Harding Code(s): J18.9 - PNEUMONIA, UNSPECIFIED ORGANISM Qualifiers: Pneumonia type: due to unspecified organism Laterality: unspecified laterality Lung location: unspecified part of lung Qualified Code(s): J18.9 - Pneumonia, unspecified organism (2) Scleroderma Assessment/Plan: -appreciate rheumatology assistance and note reviewed -on daily medrol -pulmonary following Code(s): M34.9 - SYSTEMIC SCLEROSIS, UNSPECIFIED (3) Atrial fibrillation Assessment/Plan: -currently sounds in sinus rhythm -continue toprol xl Code(s): I48.91 - UNSPECIFIED ATRIAL FIBRILLATION Qualifiers: Atrial fibrillation type: chronic Qualified Code(s): I48.2 - Chronic atrial fibrillation (4) HLD (hyperlipidemia) Assessment/Plan: continue statin Code(s): E78.5 - HYPERLIPIDEMIA, UNSPECIFIED (5) HTN (hypertension) Assessment/Plan: -well controlled -continue current management Code(s): I10 - ESSENTIAL (PRIMARY) HYPERTENSION (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
[2018-11-02] MEDS ORDERED: PT OWN MED DRAWER 7, Y5N ONE (20:27)
[2018-11-02] MEDS: ATORVASTATIN CA 20 MG TABLET (FP) PO SCH (22:02)
[2018-11-02] MEDS: GABAPENTIN 100 MG CAPSULE (FP) PO SCH (22:02)
[2018-11-03] MEDS: AZTREONAM 1 GM in DEXTROSE 5%-WATER - 50 ML IVPB SCH ×2 (02:35→09:45)
[2018-11-03] MEDS: guaiFENesin 200 MG/10 ML 10 ML UNIT-DOSE CUPS PO SCH ×2 (05:27→13:38)
[2018-11-03] MEDS: BETHANECHOL CHLORIDE 25 MG TABLET PO SCH ×2 (05:28→13:38)
[2018-11-03 07:09] LABS: BASO % 0.2 % (0-2.0); HEMATOCRIT 35.8 % (32.4-45.2); HEMOGLOBIN 11.9 GM/dL (10.7-15.3); LYMPH % 20.9 % (8-40); MCH 30.5 pg (25.7-33.7); MCHC 33.3 g/dl (32.0-36.0); MEAN CELL VOLUME 91.7 fl (80-96); MEAN PLT VOLUME 7.7 fl (7.5-11.1); NEUT % 72.9 % (42.8-82.8); PLATELET COUNT 591 K/MM3 (134-434); RDW 14.2 % (11.6-15.6); WHITE BLOOD COUNT 12.7 K/mm3 (4.0-10.0)
[2018-11-03 07:35] LABS: ANION GAP 7 MMOL/L (8-16); BLOOD UREA NITROGEN 31 mg/dL (7-18); CALCIUM 9.2 mg/dL (8.5-10.1); CHLORIDE 100 mmol/L (98-107); CO2 28 mmol/L (21-32); CREATININE 0.7 mg/dL (0.55-1.3); GLUCOSE,RANDOM 69 mg/dL (74-106); MAGNESIUM 1.5 mg/dL (1.8-2.4); PHOSPHOROUS 3.6 mg/dL (2.5-4.9); POTASSIUM 5.1 mmol/L (3.5-5.1); SODIUM 135 mmol/L (136-145)
[2018-11-03] MEDS ORDERED: MAGNESIUM OXIDE 400 MG TABLET (FP) PO ONE (08:00)
[2018-11-03] MEDS: CLOPIDOGREL BISULFATE 75 MG TABLET (FP) PO SCH (09:44)
[2018-11-03] MEDS: amLODIPine BESYLATE 10 MG TABLET (FP) PO SCH (09:45)
[2018-11-03] MEDS: POLYETHYLENE GLYCOL 3350 119 GM BTL PO SCH (09:46)
[2018-11-03] MEDS: VALSARTAN 160 MG TABLET (UD) PO SCH (09:46)
[2018-11-03] MEDS: SODIUM CHLORIDE 1 GM TABLET PO SCH (09:47)
[2018-11-03] MEDS ORDERED: predniSONE 20 MG TABLET (UD) PO SCH (10:00)
--- NOTE | 2018-11-03 10:54 | PN ---
Progress Note (short form) - Note Progress Note: PULMONARY Breathing slowly improving. +nonproductive cough. No fevers. Vital Signs Period Temp Pulse Resp BP Sys/Stewart Pulse Ox Last 24 Hr 97.3 F-98.3 F 59-66 18-20 130-155/51-60 97 Gen: NAD in chair Heart: RRR Lung: decreased breath sounds at the bases Abd: soft, nontender Ext: no edema CBC, BMP 11/03/18 05:10 11/03/18 05:10 Active Medications Amlodipine Besylate (Norvasc -) 10 mg PO DAILY [facility] Last Admin: 11/03/18 09:45 Dose: 10 mg Atorvastatin Calcium (Lipitor -) 20 mg PO [facility] Last Admin: 11/02/18 22:02 Dose: 20 mg Bethanechol Chloride (Urecholine -) 25 mg PO TID [facility] Last Admin: 11/03/18 05:28 Dose: 25 mg Clopidogrel Bisulfate (Plavix -) 75 mg PO DAILY [facility] Last Admin: 11/03/18 09:44 Dose: 75 mg Gabapentin (Neurontin -) 100 mg PO [facility] Last Admin: 11/02/18 22:02 Dose: 100 mg Guaifenesin (Robitussin -) 5 ml PO TID [facility] Last Admin: 11/03/18 05:27 Dose: 5 ml Doxycycline Hyclate 100 mg/ (Dextrose) 100 mls @ 100 mls/hr IVPB BID [facility] Last Admin: 11/02/18 22:03 Dose: 100 mls/hr Aztreonam 1 gm/ Dextrose 50 mls @ 100 mls/hr IVPB Q8H-IV [facility]; Protocol Last Admin: 11/03/18 09:45 Dose: 100 mls/hr Vancomycin HCl 750 mg/ (Dextrose) 250 mls @ 150 mls/hr IVPB Q24H [facility]; Protocol Last Admin: 11/02/18 14:48 Dose: 150 mls/hr Metoprolol Succinate (Toprol Xl -) 50 mg PO DAILY [facility] Last Admin: 11/03/18 09:45 Dose: 50 mg Polyethylene Glycol (Miralax (For Daily Use) -) 17 gm PO DAILY [facility] Last Admin: 11/03/18 09:46 Dose: Not Given Prednisone (Deltasone -) 40 mg PO DAILY [facility] Last Admin: 11/03/18 09:45 Dose: 40 mg Senna (Senna -) 2 tab PO HS PRN PRN Reason: CONSTIPATION Sodium Chloride (Sodium Chloride Tablet -) 1 gm PO DAILY [facility] Last Admin: 11/03/18 09:47 Dose: 1 gm Valsartan (Diovan -) 320 mg PO DAILY [facility] Last Admin: 11/03/18 09:46 Dose: 320 mg A/P Pneumonia Atrial Fibrillation Scleroderma HTN Hyperlipidemia - complete antibiotics - prednisone taper - inhaled bronchodilators - O2 as needed - rate controlled - outpt f/u of chest imaging - DVT prophylaxis
[2018-11-03] MEDS: DOXYCYCLINE INJECTION 100 MG in DEXTROSE 5%-WATER - 100 ML IVPB SCH (11:20)
--- NOTE | 2018-11-03 12:34 | PN ---
Progress Note, Physician History of Present Illness: OOB IN CHAIR C/O GENERALIZED WEAKNESS OCCASIONAL COUGH -IMPROVED NO HEMOPTYSIS NO C/O CHEST PAIN/ DYSPNEA AFEBRILE SL INCREASE WBC NOTED - Current Medication List Current Medications: Active Medications Amlodipine Besylate (Norvasc -) [address] [facility] Last Admin: 11/03/18 09:45 Dose: 10 mg Atorvastatin Calcium (Lipitor -) 20 mg PO [facility] Last Admin: 11/02/18 22:02 Dose: 20 mg Bethanechol Chloride (Urecholine -) [address] [facility] Last Admin: 11/03/18 05:28 Dose: 25 mg Clopidogrel Bisulfate (Plavix -) [address] [facility] Last Admin: 11/03/18 09:44 Dose: 75 mg Gabapentin (Neurontin -) 100 mg PO [facility] Last Admin: 11/02/18 22:02 Dose: 100 mg Guaifenesin (Robitussin -) [address] [facility] Last Admin: 11/03/18 05:27 Dose: 5 ml Doxycycline Hyclate 100 mg/ (Dextrose) 100 mls @ 100 mls/hr IVPB BID [facility] Last Admin: 11/03/18 11:20 Dose: 100 mls/hr Aztreonam 1 gm/ Dextrose 50 mls @ 100 mls/hr IVPB Q8H-IV [facility]; Protocol Last Admin: 11/03/18 09:45 Dose: 100 mls/hr Vancomycin HCl 750 mg/ (Dextrose) 250 mls @ 150 mls/hr IVPB Q24H [facility]; Protocol Last Admin: 11/02/18 14:48 Dose: 150 mls/hr Metoprolol Succinate (Toprol Xl -) [address] [facility] Last Admin: 11/03/18 09:45 Dose: 50 mg Polyethylene Glycol (Miralax (For Daily Use) -) [address] [facility] Last Admin: 11/03/18 09:46 Dose: Not Given Prednisone (Deltasone -) [address] [facility] Last Admin: 11/03/18 09:45 Dose: 40 mg Senna (Senna -) 2 tab PO HS PRN PRN Reason: CONSTIPATION Sodium Chloride (Sodium Chloride Tablet -) [address] [facility] Last Admin: 11/03/18 09:47 Dose: 1 gm Valsartan (Diovan -) [address] [facility] Last Admin: 11/03/18 09:46 Dose: 320 mg - Objective Vital Signs: Vital Signs Temperature 87.8 F L 11/03/18 10:00 Pulse Rate 66 11/03/18 10:00 Respiratory Rate 20 11/03/18 10:00 Blood Pressure 137/53 L 11/03/18 10:00 O2 Sat by Pulse Oximetry (%) 95 11/03/18 09:00 Constitutional: Yes: No Distress Eyes: Yes: Conjunctiva Clear Cardiovascular: Yes: Regular Rate and Rhythm, S1, S2 Respiratory: Yes: CTA Bilaterally Gastrointestinal: Yes: Normal Bowel Sounds, Soft. No: Tenderness Edema: Yes Labs: CBC, BMP 11/03/18 05:10 11/03/18 05:10 INR, PTT INR 1.05 (0.83-1.09) 10/27/18 07:15 Assessment/Plan R/O HCAP HEMOPYTSIS RESOLVED ?SCLERODERMA LUNG MULTIPLE ANTIBIOTIC ALLERGIES DISCONTINUE AZTREONAM//VANCOMYCIN DOXYCYCLINE 100MG PO BID X 7D
--- NOTE | 2018-11-03 13:28 | DS ---
Physical Examination Vital Signs: Vital Signs Temperature 31.0 C L 11/03/18 10:00 Pulse Rate 66 11/03/18 10:00 Respiratory Rate 20 11/03/18 10:00 Blood Pressure 137/53 L 11/03/18 10:00 O2 Sat by Pulse Oximetry (%) 95 11/03/18 09:00 Constitutional: Yes: Well Nourished, No Distress, Calm Cardiovascular: Yes: Regular Rate and Rhythm. No: Gallop, Murmur, Rub Respiratory: Yes: Regular, CTA Bilaterally. No: Rales, Rhonchi, Wheezes Gastrointestinal: Yes: Normal Bowel Sounds, Soft. No: Distention, Tenderness Extremities: Yes: WNL Edema: No Labs: CBC, BMP 11/03/18 05:10 11/03/18 05:10 Discharge Summary Reason For Visit: SYSTEMIC SCLEROSIS/ATRIAL FIBRILLATION/PNEUMONIA Current Active Problems Atrial fibrillation (Acute) Hyponatremia (Acute) Pleural effusion (Acute) Pneumonia (Acute) Scleroderma (Acute) Urinary retention (Acute) Hospital Course: (1) Pneumonia Code(s): J18.9 - PNEUMONIA, UNSPECIFIED ORGANISM Qualifiers: Pneumonia type: due to unspecified organism Laterality: unspecified laterality Lung location: unspecified part of lung Qualified Code(s): J18.9 - Pneumonia, unspecified organism (2) Scleroderma Code(s): M34.9 - SYSTEMIC SCLEROSIS, UNSPECIFIED (3) Atrial fibrillation Code(s): I48.91 - UNSPECIFIED ATRIAL FIBRILLATION Qualifiers: Atrial fibrillation type: chronic Qualified Code(s): I48.2 - Chronic atrial fibrillation (4) HLD (hyperlipidemia) Code(s): E78.5 - HYPERLIPIDEMIA, UNSPECIFIED (5) HTN (hypertension) Code(s): I10 - ESSENTIAL (PRIMARY) HYPERTENSION (7) Urinary retention Code(s): R33.9 - RETENTION OF URINE, UNSPECIFIED Mrs Dillon is a pleasant 83 year old female who was sent in from SNF for HCAP. She was seen by ID and treated with aztreonam, vancomycin, and doxycycline. She also had significant lung exam, CT scan performed and showing infiltrate on top of ILD. Pulmonary and rheumatology consulted and she was treated with IV steroids. Patient improved significantly while here, her lung exam has normalized. She can be changed to oral doxycycline. She is safe for discharge back to SNF. Patient complained of weakness and her TSH was checked and slightly elevated, however this is not uncommon in acute setting. Recommend repeat in 4-6 weeks as an outpatient. 35 minutes spent in preparation of this discharge Condition: Stable - Instructions Diet, Activity, Other Instructions: regular diet. Up with assistance, further activity per PT at SNF. Prednisone taper: take 40mg daily x3d, then 30mg daily x3d, then 20mg daily x3d, then 10mg daily x3d. Doxycycline 100mg po bid x7d. Referrals: Lei Mccann MD [Staff Physician] - Low Elam MD [Staff Physician] - Enmanuel Girard MD [Primary Care Provider] - [facility]position[facility] - Home Medications Comprehensive Discharge Medication List: Ambulatory Orders Amlodipine Besylate [Norvasc -] 10 mg PO DAILY 10/13/18 Clopidogrel Bisulfate [Plavix] 75 mg PO DAILY 10/13/18 Metoprolol Succinate [Toprol Xl] 50 mg PO DAILY 10/13/18 Pravastatin Sodium [Pravachol -] 80 mg PO HS 10/13/18 Sodium Chloride Tablet - 1 gm PO DAILY 10/13/18 Valsartan 320 mg PO DAILY 10/13/18 Bethanechol Chloride [Bethanechol Chloride -] 25 mg PO TID tablet 10/21/18 Gabapentin [Neurontin -] 100 mg PO HS capsule 10/21/18 Polyethylene Glycol 3350 [Miralax 119 gm Btl -] 17 gm PO DAILY bottle 10/21/18 Sennosides [Senna -] 2 tab PO HS PRN tablet 10/21/18 Guaifenesin 100 mg PO TID 10/26/18 Doxycycline Hyclate [Vibramycin -] 100 mg PO BID #14 cap 11/03/18 predniSONE [Deltasone -] 40 mg PO DAILY tablet 11/03/18
[2018-11-03 13:36] VITALS: BP 138/53; PULSE 60; TEMP 97.6
[2018-11-03] MEDS ORDERED: DOXYCYCLINE HYCLATE 100 MG CAPSULE PO SCH (18:00)
== END 2018-11-03 15:50 | DRG 194 ==
LOC: SUPCPDRO 16:01 → JER 16:01 → JERBED 18:50 → J7W 10-27 00:48
PROVIDERS: ADMIT Internal Medicine; ATTEND Internal Medicine
DX: J18.9 Pneumonia, unspecified organism (principal); E22.2 Syndrome of inappropriate secretion of antidiuretic hormone; J90 Pleural effusion, not elsewhere classified; E46 Unspecified protein-calorie malnutrition; Z68.1 Body mass index [BMI] 19.9 or less, adult; L97.818 Non-pressure chronic ulcer of other part of right lower leg with other specified severity; R04.2 Hemoptysis; E88.09 Other disorders of plasma-protein metabolism, not elsewhere classified; I10 Essential (primary) hypertension; I48.2 Chronic atrial fibrillation; M34.9 Systemic sclerosis, unspecified; D64.9 Anemia, unspecified; J84.10 Pulmonary fibrosis, unspecified; I73.00 Raynaud's syndrome without gangrene; K59.09 Other constipation; E78.00 Pure hypercholesterolemia, unspecified; E86.1 Hypovolemia; D47.3 Essential (hemorrhagic) thrombocythemia; I45.81 Long QT syndrome; R33.8 Other retention of urine; R04.0 Epistaxis; Z88.0 Allergy status to penicillin
CPT/HCPCS: 36415; 71045-TC-FY; 71250-TC; 80048; 80053; 81003; 82607; 82728; 82746; 83540; 83550; 83735; 83880; 84100; 84443; 84484; 85025; 85027; 85610; 85730; 87040; 87070; 87086; 87205; 87804; 87899; 93005; 93010; 93306-TC; 97116-GP; 97162-GP; 99284-25; G0480

== ENCOUNTER 2018-12-17 16:50 | Inpatient (IN) | payer OTHER | END 2018-12-22 15:29 | disposition home health service (06) | LOC: JER 16:50 → JERBED 22:45 → J5S 12-18 14:12 ==

== ENCOUNTER 2018-12-29 13:36 | Inpatient (IN) | payer OTHER ==
--- NOTE | 2018-12-29 14:14 | PDOC ---
History of Present Illness - General Chief Complaint: Lightheaded Stated Complaint: Lightheaded Time Seen by Provider: 12/29/18 14:14 History Source: Patient - History of Present Illness Initial Comments: 12/29/18 14:35 The patient is an 83 year old female with a PMH of Raynaud's, Scleroderma, HTN, HLD, and AFib (on Plavix) who presents to the ED c/o lightheadedness. Patient states she was sitting in her wheelchair around 12 p.m. when she stood up to go to the bathroom (patient is ambulatory, however often uses a wheelchair to mobilize) and felt lightheaded and dizzy. Patient sat back down and symptoms resolved. Daughter @ bedside provides additional history that patient has a h/ o pre-syncopal episodes, often associated with her UTI. As per EMR, patient last evaluated in our ED 11/2018 for weakness; patient improved w/IV hydration. During course of admission patient evaluated by rheumatology and daily predisone was decreased. Patient discharged on 12/22 on steroid taper. Past History - Past Medical History Allergies/Adverse Reactions: Allergies Allergy/AdvReac Type Severity Reaction Status Date / Time aspirin Allergy Swelling Verified 12/29/18 15:54 cephalexin [From Keflex] Allergy Verified 12/29/18 15:54 ciprofloxacin [From Cipro] Allergy Swelling Verified 12/29/18 15:54 ciprofloxacin HCl Allergy Swelling Verified 12/29/18 15:54 [From Cipro] Penicillins Allergy Swelling Verified 12/29/18 15:54 Quinolones Allergy Verified 12/29/18 15:54 Home Medications: Ambulatory Orders Amlodipine Besylate [Norvasc -] 10 mg PO DAILY 10/13/18 Clopidogrel Bisulfate [Plavix] 75 mg PO DAILY 10/13/18 Metoprolol Succinate [Toprol Xl] 50 mg PO DAILY 10/13/18 Valsartan 320 mg PO DAILY 10/13/18 Gabapentin [Neurontin -] 100 mg PO HS capsule 10/21/18 Atorvastatin Ca [Lipitor] 20 mg PO HS 12/17/18 Bethanechol Chloride 25 mg PO TID 12/22/18 predniSONE [Deltasone -] 20 mg PO DAILY #14 tablet 12/22/18 Anemia: No Asthma: No Cancer: No Cardiac Disorders: Yes (A FIB) CVA: No COPD: No CHF: No Dementia: No Diabetes: No GI Disorders: No Disorders: No HTN: Yes Hypercholesterolemia: Yes Liver Disease: No Seizures: No Thyroid Disease: No - Surgical History Abdominal Surgery: Yes Appendectomy: Yes Cardiac Surgery: No Cholecystectomy: No Lung Surgery: No Neurologic Surgery: No Orthopedic Surgery: Yes - Immunization History Immunization Up to Date: Yes - Suicide/Smoking/Psychosocial Hx Smoking Status: No Smoking History: Never smoked Have you smoked in the past 12 months: No Number of Cigarettes Smoked Daily: 0 Hx Alcohol Use: No Drug/Substance Use Hx: No Substance Use Type: None, Alcohol Hx Substance Use Treatment: No Review of Systems - Review of Systems Constitutional: No: Chills, Fever HEENTM: No: Blurred Vision, Recent change in vision Respiratory: No: Cough, Shortness of Breath Cardiac (ROS): Yes: Lightheadedness. No: Chest Pain, Palpitations ABD/GI: Yes: Tarry Stools. No: Constipated, Diarrhea, Nausea, Vomiting *Physical Exam - Vital Signs Last Vital Signs Temp Pulse Resp BP Pulse Ox 97.9 F 83 18 139/54 L 99 12/29/18 14:05 12/29/18 13:55 12/29/18 13:55 12/29/18 13:55 12/29/18 13:55 - Physical Exam Comments: 12/29/18 17:18 GENERAL: No acute distress, awake, verbal HEENT: Normocephalic, atraumatic, EOMI, sclera anicteric, conjunctiva clear, neck supple CV: S1, S2, no M/R/G Abdomen: (+) bowel sounds, no TTP Extremity: 2+ DP pulses B/L, chronic Raynaud's changes in fingers, R lateral thumb lesion w/o erythema, edema, TTP - ? possibly callous NEUROLOGICAL: No facial asymmetry, Normal speech, moving all 4 ext spontaneously and symmetrically, normal finger to nose, normal rapid alternating movements, strength symmetric in upper/lower extremirties ED Treatment Course - LABORATORY CBC & Chemistry Diagram: 12/29/18 14:40 12/29/18 14:40 Medical Decision Making - Medical Decision Making 12/29/18 14:43 83 year old female with resolved episode of lightheadedness when moving from sitting to supine. VS unremarkable. Frontal diagnosis: vasovagal vs. r/o ACS vs. dehydration vs. UTI (patient has h/o UTI w/pre-syncopal features). As patient reports tarry stools (however has a h/o iron use) will also obtain FOBT. 12/29/18 15:15 CBC shows Hb 10.3 (baseline Hb 9-10) Leukocytosis 15 - likely 2/2 to chronic steroid use Troponin (-) 12/29/18 16:15 Trace FOBT - possibly ? to Fe use 12/29/18 16:32 Case d/w Dr. Davis - requests admission as patient has difficulty with outpatient follow-up due to mobility issues. Will page hospitalist. 12/29/18 17:48 Case d/w Dr. Greenberg. Patient admitted to hospitalist service. Tele OBS Orthostatic VS pending; UA pending Clinical Impression: Pre-Syncope: 2/2 ? vasovagal vs. UTI vs. GI bleed (less likely) vs. arrhythmia 12/29/18 22:32 Orthostatic VS negative - less likely vasovagal *DC/Admit/Observation/Transfer Diagnosis at time of Disposition: Lightheadedness - Discharge Dispostion Condition at time of disposition: Fair Decision to Admit order: Yes - Referrals - Patient Instructions - Post Discharge Activity
[2018-12-29 14:56] LABS: BASO % 0.3 % (0-2.0); EOS % 0.2 % (0-4.5); HEMOGLOBIN 10.3 GM/dL (10.7-15.3); LYMPH % 10.9 % (8-40); MCH 30.1 pg (25.7-33.7); MCHC 32.1 g/dl (32.0-36.0); MEAN CELL VOLUME 93.6 fl (80-96); MEAN PLT VOLUME 8.2 fl (7.5-11.1); MONO % 4.3 % (3.8-10.2); NEUT % 84.3 % (42.8-82.8); PLATELET COUNT 293 K/MM3 (134-434); RBC 3.41 M/mm3 (3.60-5.2); RDW 17.3 % (11.6-15.6)
[2018-12-29 15:26] LABS: ALBUMIN 3.3 g/dl (3.4-5.0); BILIRUBIN,TOTAL 0.4 mg/dL (0.2-1); CALCIUM 8.8 mg/dL (8.5-10.1); CREATININE 0.9 mg/dL (0.55-1.3); POTASSIUM 4.5 mmol/L (3.5-5.1); TOT PROT 7.1 g/dl (6.4-8.2)
--- NOTE | 2018-12-29 15:35 | PDOC ---
Documentation entered by Sarah Corbin SCRIBE, acting as scribe for Lino Gandara MD. Lino Gandara MD: This documentation has been prepared by the Shaquille birmingham Adrianna, SCRIBE, under my direction and personally reviewed by me in its entirety. I confirm that the documentation accurately reflects all work, treatment, procedures, and medical decision making performed by me. Attending Attestation - Resident Resident Name: ChanceJennifer - ED Attending Attestation I have performed the following: I have examined & evaluated the patient, The case was reviewed & discussed with the resident, I agree w/resident's findings & plan, Exceptions are as noted - HPI HPI: The patient is an 83 year old female, with a significant PMH of hypertension, hyperlipidemia, scleroderma, Raynauds, and Afib (on Plavix), who presents to the emergency department today complaining of dark stool for one week, and dizziness and lightheadedness for a few hours. She notes her nurse has noticed her stool has been black for the past week, which she believes is related to taking iron daily. Today, patient notes she began feeling lightheaded, "like she was going to pass out," upon getting up and trying to go to the bathroom 2.5 hours ago (she ambulates with a walker at baseline). She reports immediately sitting down as she thought she was going to fall and her symptoms self-resolved after 15 minutes. As per patients daughter, she notes the patient has had symptoms similar to this before when she has had an UTI. Patient endorses mild chills, diaphoresis, and generalized weakness while in the ED. She is currently on a tapered dose of Prednisone for her Raynaud's but denies currently being on antibiotics for last UTI. Pt denies any dysarthria, headache, neck pain, diplopia, numbness/tingling/weakness, cp, back pain. The patient denies shortness of breath, and headache. Denies fever, nausea, vomit, diarrhea and constipation. Denies dysuria, frequency, urgency and hematuria. Allergies: Aspirin, cephalexin, ciprofloxacin, penicillins, quinolones Past surgical history: appendectomy, abdominal surgery, orthopedic surgery Social history: No reported PCP: Dr. Enmanuel Girard - Physicial Exam PE: 12/29/18 15:23 GENERAL: The patient is awake, alert, and fully oriented, Nontoxic - in no acute distress. HEAD: Normocephalic, atraumatic. EYES: extraocular movements intact, sclera anicteric, conjunctiva clear. ENT: Normal voice, Moist mucous membranes. NECK: Normal range of motion, supple LUNGS: Breath sounds equal, clear to auscultation bilaterally. No wheezes, no rhonchi, no rales. HEART: Regular rate and rhythm, normal S1 and S2 without murmur, rub or gallop. ABDOMEN: Soft, nontender, normoactive bowel sounds. No guarding, no rebound. No CVA tenderness EXTREMITIES: dusky appear fingers (Chronic with her reynouds), +lesion/callous on R thumb NEUROLOGICAL: No facial assymetry, Normal speech, moving all 4 ext spontaneously and symmetrically, normal finger to nose, normal rapid alternating movements, strength symmetric in upper/lower extremirties PSYCH: Normal mood, normal affect. SKIN: Warm, Dry, normal turgor, - Medical Decision Making 12/29/18 14:38 83y M hxo f htn, scleroderma/Reynouds, afib, HL, presents with an episode of feeling very lightheadedness, ophthalmic for approximately 15 minutes without associated neurologic complaints, chest pain, palpitations. Does endorse having some dark-colored stool past week that she attributes to iron. On exam the patient is in no acute distress however she is pale-appearing however this might be her baseline. We'll obtain CBC, CMP to screen for anemia, metabolic derangements, vivienne, ua stool guaiac obtained 12/29/18 16:31 16:30- resident spoke with Dr. Girard concerning patient's care, he requests patient be admitted obs 12/29/18 17:41 EXAM#: TYPE/EXAM: RESULT: [id number] RAD/CHEST X-RAY PORTABLE* Chest: Cough. Since 12/20/2018, again noted are the increased lung markings in both lung mejia mainly at the bases but increasing into the upper lobes. This could represent an element of chronic interstitial lung disease, bronchiectasis with superimposed infiltrates. There is blunting of the right angle with a prominent mediastinum. Correlation recommended. For more complete evaluation, further imaging with CT may be of help. Reported By: Franco Silveira MD 12/29/18 17:30
[2018-12-29 16:54] LABS: MAGNESIUM 2.2 mg/dL (1.8-2.4)
--- NOTE | 2018-12-29 17:35 | HP ---
CHIEF COMPLAINT: "i almost passed out" PCP: Dr Henry HISTORY OF PRESENT ILLNESS: This is an 83 yo F with PMH of hyponatremia with syncope, htn, hld, Raynaud's, Scleroderma, bibems due to near syncope. Patient was sitting on the toilet earlier today, not straining, not actively passing urine or stool when she suddenly felt very dizzy, denies associated flushing, palpitations, cp, nausea. She denies loc. no longer felt dizzy when emt came but reported chills and now feels lightheaded. recently treated for PNA in october after which she spent time in rehab on prednispne taper, which made her feel very weak, currently on 5 mg d. treated for asymptomatic uti 1 w ago. currtently denies f/c, dysuria, flank pain, hematuria. had an episode of black stool today, occult blood sample gathered in ed. PEr daughter patient has histor of pre syncope associed with uti. She also had R thumb scab that has not healed in a month, denies pain, erythema or discharge. 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 toe amputation Social History: lives with who has severe heart failure Smoking: denies Alcohol:denies Drugs: denies Family History: Allergies aspirin Allergy (Verified 12/29/18 15:54) Swelling cephalexin [From Keflex] Allergy (Verified 12/29/18 15:54) ciprofloxacin [From Cipro] Allergy (Verified 12/29/18 15:54) Swelling ciprofloxacin HCl [From Cipro] Allergy (Verified 12/29/18 15:54) Swelling Penicillins Allergy (Verified 12/29/18 15:54) Swelling Quinolones Allergy (Verified 12/29/18 15:54) HOME MEDICATIONS: Home Medications Medication Instructions Recorded Amlodipine Besylate [Norvasc -] 10 mg PO DAILY 10/13/18 Clopidogrel Bisulfate [Plavix] 75 mg PO DAILY 10/13/18 Metoprolol Succinate [Toprol Xl] 50 mg PO DAILY 10/13/18 Valsartan 320 mg PO DAILY 10/13/18 Gabapentin [Neurontin -] 100 mg PO HS capsule 10/21/18 Atorvastatin Ca [Lipitor] 20 mg PO HS 12/17/18 Bethanechol Chloride 25 mg PO TID 12/22/18 predniSONE [Deltasone -] 20 mg PO DAILY #14 tablet 12/22/18 REVIEW OF SYSTEMS CONSTITUTIONAL: Absent: fever, diaphoresis HEENT: Absent: rhinorrhea, nasal congestion, throat pain CARDIOVASCULAR: Absent: chest pain, syncope, palpitations RESPIRATORY: Absent: cough, shortness of breath, orthopnea GASTROINTESTINAL: Absent: abdominal pain, abdominal distension, nausea, vomiting, diarrhea, constipation GENITOURINARY: Absent: dysuria, hematuria, flank pain MUSCULOSKELETAL: Absent: back pain, neck pain SKIN: Absent: rash, itching, pallor HEMATOLOGIC/IMMUNOLOGIC: Absent: easy bleeding, easy bruising ENDOCRINE: Absent: unexplained weight gain, unexplained weight loss NEUROLOGIC: Absent: headache, focal weakness or paresthesias, PSYCHIATRIC: Absent: anxiety, depression PHYSICAL EXAMINATION Vital Signs - 24 hr 12/29/18 12/29/18 13:55 14:05 Temperature 96.3 F L 97.9 F Pulse Rate 83 Respiratory 18 Rate Blood Pressure 139/54 L O2 Sat by Pulse 99 Oximetry (%) GENERAL: Awake, alert, and fully oriented, in no acute distress. HEAD: Normal with no signs of trauma. EYES: Pupils equal, round and reactive to light, extraocular movements intact, sclera anicteric, conjunctiva clear. No lid lag. EARS, NOSE, THROAT: dry mucous membranes. NECK: supple without JVD, or bruits LUNGS: mild bibasilar crackles Breast: no mass HEART: Regular rate and rhythm, normal S1 and S2 . ABDOMEN: Soft, nontender, not distended, normoactive bowel sounds, no guarding, no rebound MUSCULOSKELETAL: No CVA tenderness. UPPER EXTREMITIES: No peripheral edema, deformed joints, r thumb scab over pistat pip joint no erythema no dishcarge LOWER EXTREMITIES: No peripheral edema. NEUROLOGICAL: Cranial nerves II-XII grossly intact. Normal speech. PSYCHIATRIC: Cooperative. Good eye contact. Appropriate mood and affect. SKIN: Warm, dry, decreased turgor Laboratory Results - last 24 hr 12/29/18 12/29/18 12/29/18 14:40 14:40 15:10 WBC 15.0 H RBC 3.41 L Hgb 10.3 L Hct 32.0 L D MCV 93.6 MCH 30.1 MCHC 32.1 RDW 17.3 H Plt Count 293 MPV 8.2 Absolute Neuts (auto) 12.7 H Neutrophils % 84.3 H D Lymphocytes % 10.9 D Monocytes % 4.3 Eosinophils % 0.2 D Basophils % 0.3 Nucleated RBC % 0 Sodium 143 Potassium 4.5 Chloride 109 H Carbon Dioxide 26 Anion Gap 9 BUN 24 H Creatinine 0.9 Est GFR (CKD-EPI)AfAm 68.05 Est GFR (CKD-EPI)NonAf 58.71 Random Glucose 106 Calcium 8.8 Magnesium 2.2 Total Bilirubin 0.4 AST 15 ALT 24 Alkaline Phosphatase 59 Creatine Kinase 29 Troponin I 0.04 Total Protein 7.1 Albumin 3.3 L Stool Occult Blood Trace ASSESSMENT/PLAN: This is an 83 yo F with PMH of hyponatremia with syncope, htn, hld, Raynaud's, Scleroderma, bibems due to near syncope. Patient was sitting on the toilet earlier today, not straining, not actively passing urine or stool when she suddenly felt very dizzy, denies associated flushing, palpitations, cp, nausea. near syncope Raynauds Scleroderma R thumb lesion possible melena normocytic anemia near baseline -likley orthostatic due to dehydration;; f/u orthostatic vitals then start IV hydration -TTE, carotid dopplers, TFTs, cardiac monitoring -ekg L axis div, pvcs -R hand x ray, esr, crp r/o osteomyelitis -r/u ua, urine culture r/o uti -stool for occult blood + trace blood, repeat. -gi consult. Problem List - Problem (1) Finger lesion Code(s): L98.9 - DISORDER OF THE SKIN AND SUBCUTANEOUS TISSUE, UNSPECIFIED (2) Near syncope Code(s): R55 - SYNCOPE AND COLLAPSE (3) Raynauds disease Code(s): I73.00 - RAYNAUD'S SYNDROME WITHOUT GANGRENE (4) Scleroderma Code(s): M34.9 - SYSTEMIC SCLEROSIS, UNSPECIFIED (5) HLD (hyperlipidemia) Code(s): E78.5 - HYPERLIPIDEMIA, UNSPECIFIED (6) HTN (hypertension) Code(s): I10 - ESSENTIAL (PRIMARY) HYPERTENSION Visit type - Emergency Visit Emergency Visit: Yes ED Registration Date: 12/29/18 Care time: The patient presented to the Emergency Department on the above date and was hospitalized for further evaluation of their emergent condition. - New Patient This patient is new to me today: Yes Date on this admission: 12/29/18 - Critical Care Critical Care patient: No
--- NOTE | 2018-12-29 18:36 | PN ---
Teaching Attending Note Name of Resident: Kamila Greenberg ATTENDING PHYSICIAN STATEMENT I saw and evaluated the patient. I reviewed the resident's note and discussed the case with the resident. I agree with the resident's findings and plan as documented. CC: I was dizzy HPI: Ms Dillon is an 83 year old female who comes in with an episode of lightheadedness today. She was recently hospitalized for pneumonia, after that she went to a rehab and spent 7 weeks there. She was discharged but needed readmission on 12/18 secondary to UTI and weakness secondary to steroids. She was home and was on the toilet today. She says that she does not remember if she was urinating or having a bowel movement. However on the toilet she became very lightheaded. She called her who helped her into her wheelchair and called EMS. She says she was lightheaded for about an hour before it resolved. She did not lose consciousness with this. She complains of feeling very weak right now. She also says she has chills. She denies fevers, chest pain or pressure, shortness of breath, coughing, abdominal pain, nausea, vomiting, diarrhea, constipation, difficulty or pain on urination, or swelling. Of note the ER found she had dark stool. Past Medical History Cardio/Vascular AFIB,HTN,Hyperlipdemia Pulmonary Bronchitis,COPD,Pneumonia,Pulmonary Fibrosis Rheumatology Other Additional Medical History Anxiety Hyponatremia MGUS Home Medications Medication Instructions Recorded Amlodipine Besylate [Norvasc -] 10 mg PO DAILY 10/13/18 Clopidogrel Bisulfate [Plavix] 75 mg PO DAILY 10/13/18 Metoprolol Succinate [Toprol Xl] 50 mg PO DAILY 10/13/18 Valsartan 320 mg PO DAILY 10/13/18 Gabapentin [Neurontin -] 100 mg PO HS capsule 10/21/18 Atorvastatin Ca [Lipitor] 20 mg PO HS 12/17/18 Bethanechol Chloride 25 mg PO TID 12/22/18 predniSONE [Deltasone -] 20 mg PO DAILY #14 tablet 12/22/18 Social History Smoking history Never smoked Have you smoked in the past 12 No months Hx Alcohol Use No ADL Family Assistance FHx: non-contributory ROS: full review of systems obtained, as per HPI and otherwise negative OBJECTIVE: Last Vital Signs Temp Pulse Resp BP Pulse Ox 36.6 C 83 18 139/54 L 99 12/29/18 14:05 12/29/18 13:55 12/29/18 13:55 12/29/18 13:55 12/29/18 13:55 Gen: nad, appears anxious HEENT: perrla, eomi, dry mucous membranes Pulm: ctab w/o w/r/r CV: rrr w/o m/r/g Abd: +bs, s/nt/nd Ext: no c/c/e CBC, BMP 12/29/18 14:40 12/29/18 14:40 ASSESSMENT AND PLAN: -admit under observation -symptoms sound vasovagal -obtain orthostatic vital signs -last ECHO done in October, do not need to repeat -will do carotid doppler study since last one done in 2012 -obtain U/A for possible UTI -hemoccult showing trace blood but H/H stable -consult GI -BUN not elevated -lesion on hand noted, check x-ray/ESR/CRP -PT consult -continue home regimen Problem List - Problems (1) Near syncope Code(s): R55 - SYNCOPE AND COLLAPSE (2) Finger lesion Code(s): L98.9 - DISORDER OF THE SKIN AND SUBCUTANEOUS TISSUE, UNSPECIFIED (3) UTI (urinary tract infection) Code(s): N39.0 - URINARY TRACT INFECTION, SITE NOT SPECIFIED (4) Atrial fibrillation Code(s): I48.91 - UNSPECIFIED ATRIAL FIBRILLATION Qualifiers: Atrial fibrillation type: chronic Qualified Code(s): I48.2 - Chronic atrial fibrillation (5) HLD (hyperlipidemia) Code(s): E78.5 - HYPERLIPIDEMIA, UNSPECIFIED (6) HTN (hypertension) Code(s): I10 - ESSENTIAL (PRIMARY) HYPERTENSION (7) Scleroderma Code(s): M34.9 - SYSTEMIC SCLEROSIS, UNSPECIFIED (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
[2018-12-29] MEDS: SODIUM CHLORIDE 1,000 ML IV SCH (19:30)
[2018-12-29] MEDS: GABAPENTIN 100 MG CAPSULE (FP) PO SCH (23:29)
[2018-12-29] MEDS: ATORVASTATIN CA 20 MG TABLET (FP) PO SCH (23:29)
[2018-12-30 07:43] LABS: BASO % 0.2 % (0-2.0); EOS % 0.5 % (0-4.5); HEMATOCRIT 25.6 % (32.4-45.2); HEMOGLOBIN 8.6 GM/dL (10.7-15.3); LYMPH % 24.8 % (8-40); MCH 31.2 pg (25.7-33.7); MCHC 33.6 g/dl (32.0-36.0); MEAN CELL VOLUME 92.8 fl (80-96); MEAN PLT VOLUME 8.4 fl (7.5-11.1); MONO % 7.9 % (3.8-10.2); NEUT % 66.6 % (42.8-82.8); PLATELET COUNT 285 K/MM3 (134-434); RBC 2.75 M/mm3 (3.60-5.2); RDW 17.9 % (11.6-15.6); WHITE BLOOD COUNT 9.1 K/mm3 (4.0-10.0)
[2018-12-30 08:19] LABS: ALBUMIN 2.8 g/dl (3.4-5.0); BILIRUBIN,TOTAL 0.4 mg/dL (0.2-1); CALCIUM 8.3 mg/dL (8.5-10.1); CREATININE 0.7 mg/dL (0.55-1.3); MAGNESIUM 2.1 mg/dL (1.8-2.4); PHOSPHOROUS 3.1 mg/dL (2.5-4.9); POTASSIUM 4.1 mmol/L (3.5-5.1); TOT PROT 6.1 g/dl (6.4-8.2)
[2018-12-30] MEDS: CLOPIDOGREL BISULFATE 75 MG TABLET (FP) PO SCH (09:22)
[2018-12-30] MEDS: amLODIPine BESYLATE 10 MG TABLET (FP) PO SCH (09:22)
[2018-12-30] MEDS: predniSONE 5 MG TABLET (UD) PO SCH (09:22)
[2018-12-30] MEDS: VALSARTAN 160 MG TABLET (UD) PO SCH (09:22)
[2018-12-30] MEDS ORDERED: PATIENT'S OWN MEDICATION (NON-FORMULARY) (Valsartan [Valsartan] 320 MG) PO SCH (10:00)
[2018-12-30 10:26] LABS: EPI CELLS 1.5 /HPF (0-5/HPF); HYALINE CASTS 8 /lpf (0-8); URINE APPEARANCE CLEAR; URINE BACTERIA 2954.3 /hpf (NEGATIVE); URINE BILIRUBIN NEGATIVE (NEGATIVE); URINE COLOR YELLOW; URINE GLUCOSE (UA) NEGATIVE (NEGATIVE); URINE KETONE NEGATIVE (NEGATIVE); URINE LEUK ESTERASE 3+ (NEGATIVE); URINE NITRITE POSITIVE (NEGATIVE); URINE PROTEIN NEGATIVE (NEGATIVE); URINE RBC 2 /hpf (0-4); URINE WBC 98 /hpf (0-5)
[2018-12-30] MEDS ORDERED: diazePAM CARPU-JECT 10 MG/2 ML DISP.SYRIN IVPUSH ONE (10:33)
--- NOTE | 2018-12-30 10:43 | CON.GI ---
Consult - History of Present Illness History of Present Illness: GI CONSULT DICTATED - PPI -SERIAL CBC Q12 - AVOID NSAID - NPO MIDNIGHT FOR EGD SAT. SEE FULL CONSULT - Past Medical History Cardio/Vascular: Yes: AFIB (paroxysmal, not a candidate for anticoagulation due to frequent falls.), HTN, Hyperlipdemia Pulmonary: Yes: Bronchitis, COPD, Pneumonia, Pulmonary Fibrosis. No: Asthma, O2 Dependent, Previously Intubated, Pulmonary Embolus, Sleep Apnea ...: No Rheumatology: Yes: Other (scleroderma, Raynauds syndrome) Additional Medical History: Anxiety. Hyponatremia. MGUS - Alcohol/Substance Use Hx Alcohol Use: No - Smoking History Smoking history: Never smoked Have you smoked in the past 12 months: No Aproximately how many cigarettes per day: 0 - Social History Usual Living Arrangement: With Spouse ADL: Family Assistance Home Medications - Allergies Allergies/Adverse Reactions: Allergies Allergy/AdvReac Type Severity Reaction Status Date / Time aspirin Allergy Swelling Verified 12/29/18 15:54 cephalexin [From Keflex] Allergy Verified 12/29/18 15:54 ciprofloxacin [From Cipro] Allergy Swelling Verified 12/29/18 15:54 ciprofloxacin HCl Allergy Swelling Verified 12/29/18 15:54 [From Cipro] Penicillins Allergy Swelling Verified 12/29/18 15:54 Quinolones Allergy Verified 12/29/18 15:54 - Home Medications Home Medications: Ambulatory Orders Amlodipine Besylate [Norvasc -] 10 mg PO DAILY 10/13/18 Clopidogrel Bisulfate [Plavix] 75 mg PO DAILY 10/13/18 Metoprolol Succinate [Toprol Xl] 50 mg PO DAILY 10/13/18 Valsartan 320 mg PO DAILY 10/13/18 Gabapentin [Neurontin -] 100 mg PO HS capsule 10/21/18 Atorvastatin Ca [Lipitor] 20 mg PO HS 12/17/18 Bethanechol Chloride 25 mg PO TID 12/22/18 predniSONE [Deltasone -] 20 mg PO DAILY #14 tablet 12/22/18 Physical Exam-GI Vital Signs: Vital Signs Temperature 97.6 F 12/30/18 06:00 Pulse Rate 64 12/30/18 06:00 Respiratory Rate 18 12/30/18 06:00 Blood Pressure 139/46 L 12/30/18 06:00 O2 Sat by Pulse Oximetry (%) 98 12/30/18 04:00 Labs: CBC, BMP 12/30/18 05:50 12/30/18 05:50
--- NOTE | 2018-12-30 10:50 | PN ---
Teaching Attending Note Name of Resident: Kamila Greenberg ATTENDING PHYSICIAN STATEMENT I saw and evaluated the patient. I reviewed the resident's note and discussed the case with the resident. I agree with the resident's findings and plan as documented. SUBJECTIVE: Ms Dillon says she is feeling better. She still feels weak but more of her chronic weakness. No cp, sob, n/v. OBJECTIVE: Last Vital Signs Temp Pulse Resp BP Pulse Ox 36.4 C 64 18 139/46 L 98 12/30/18 06:00 12/30/18 06:00 12/30/18 06:00 12/30/18 06:00 12/30/18 04:00 Gen: nad Pulm: ctab w/o w/r/r CV: rrr w/o m/r/g Abd: +bs, s/nt/nd Ext: no c/c/e CBC, BMP 12/30/18 05:50 12/30/18 05:50 ASSESSMENT AND PLAN:
[2018-12-30] MEDS ORDERED: LORazepam 2 MG/ML SDV VIAL IVPUSH SCH (10:59)
--- NOTE | 2018-12-30 12:03 | EKG ---
Test Reason : Blood Pressure : / mmHG Vent. Rate : 094 BPM Atrial Rate : 105 BPM P-R Int : 000 ms QRS Dur : 088 ms QT Int : 374 ms P-R-T Axes : 000 -34 140 degrees QTc Int : 467 ms POOR DATA QUALITY, INTERPRETATION MAY BE ADVERSELY AFFECTED NORMAL SINUS RHYTHM WITH FREQUENT PREMATURE VENTRICULAR COMPLEXES LEFT AXIS DEVIATION T WAVE ABNORMALITY, CONSIDER LATERAL ISCHEMIA ABNORMAL ECG Confirmed by César Almaraz MD ([id number]) on 12/30/2018 12:03:17 PM Referred By: Confirmed By:César Almaraz MD
--- NOTE | 2018-12-30 15:05 | PN ---
Physical Exam: SUBJECTIVE: Patient seen and examined resting in bed nad. afebrile hemodynamically stable, no acute events. still feels slightly lightheaded. has 1 normal brown bm s/p black bm yesterday. denies abd pain, n/v/d/c, loc, cp, palpitations. no events on telemetry OBJECTIVE: Vital Signs Period Temp Pulse Resp BP Sys/Stewart Pulse Ox Last 24 Hr 97.4 F-97.8 F 62-78 16-18 107-139/46-76 97-98 GENERAL: Awake, alert, and fully oriented, in no acute distress. HEAD: Normal with no signs of trauma. EYES: Pupils equal, round and reactive to light, extraocular movements intact, sclera anicteric, conjunctiva clear. No lid lag. EARS, NOSE, THROAT: dry mucous membranes. NECK: supple without JVD, or bruits LUNGS: mild bibasilar crackles Breast: no mass HEART: Regular rate and rhythm, normal S1 and S2 . ABDOMEN: Soft, nontender, not distended, normoactive bowel sounds, no guarding, no rebound MUSCULOSKELETAL: No CVA tenderness. UPPER EXTREMITIES: No peripheral edema, deformed joints, r thumb scab over pistat pip joint no erythema no dishcarge LOWER EXTREMITIES: No peripheral edema. NEUROLOGICAL: Cranial nerves II-XII grossly intact. Normal speech. PSYCHIATRIC: Cooperative. Good eye contact. Appropriate mood and affect. SKIN: Warm, dry, decreased turgor Laboratory Results - last 24 hr 12/29/18 12/29/18 12/29/18 14:40 14:40 15:10 WBC 15.0 H RBC 3.41 L Hgb 10.3 L Hct 32.0 L D MCV 93.6 MCH 30.1 MCHC 32.1 RDW 17.3 H Plt Count 293 MPV 8.2 Absolute Neuts (auto) 12.7 H Neutrophils % 84.3 H D Lymphocytes % 10.9 D Monocytes % 4.3 Eosinophils % 0.2 D Basophils % 0.3 Nucleated RBC % 0 ESR Retic Count Sodium 143 Potassium 4.5 Chloride 109 H Carbon Dioxide 26 Anion Gap 9 BUN 24 H Creatinine 0.9 Est GFR (CKD-EPI)AfAm 68.05 Est GFR (CKD-EPI)NonAf 58.71 Random Glucose 106 Calcium 8.8 Phosphorus Magnesium 2.2 Ferritin Total Bilirubin 0.4 AST 15 ALT 24 Alkaline Phosphatase 59 Creatine Kinase 29 Troponin I 0.04 C-Reactive Protein Total Protein 7.1 Albumin 3.3 L TSH Free T4 Urine Color Urine Appearance Urine pH Ur Specific Eldon Urine Protein Urine Glucose (UA) Urine Ketones Urine Blood Urine Nitrite Urine Bilirubin Urine Urobilinogen Ur Leukocyte Esterase Urine WBC (Auto) Urine RBC (Auto) Urine Casts (Auto) U Epithel Cells (Auto) Urine Bacteria (Auto) Stool Occult Blood Trace 12/30/18 12/30/18 12/30/18 05:50 05:50 05:50 WBC 9.1 RBC 2.75 L Hgb 8.6 L Hct 25.6 L D MCV 92.8 MCH 31.2 MCHC 33.6 RDW 17.9 H Plt Count 285 MPV 8.4 Absolute Neuts (auto) 6.1 Neutrophils % 66.6 D Lymphocytes % 24.8 D Monocytes % 7.9 D Eosinophils % 0.5 D Basophils % 0.2 Nucleated RBC % 0 ESR Retic Count Sodium 139 Potassium 4.1 Chloride 107 Carbon Dioxide 28 Anion Gap 5 L BUN 19 H Creatinine 0.7 Est GFR (CKD-EPI)AfAm 92.21 Est GFR (CKD-EPI)NonAf 79.56 Random Glucose 69 L Calcium 8.3 L Phosphorus 3.1 Magnesium 2.1 Ferritin Total Bilirubin 0.4 AST 12 L ALT 20 Alkaline Phosphatase 47 Creatine Kinase Troponin I C-Reactive Protein 1.5 H Total Protein 6.1 L Albumin 2.8 L TSH 1.17 Free T4 1.13 Urine Color Urine Appearance Urine pH Ur Specific Eldon Urine Protein Urine Glucose (UA) Urine Ketones Urine Blood Urine Nitrite Urine Bilirubin Urine Urobilinogen Ur Leukocyte Esterase Urine WBC (Auto) Urine RBC (Auto) Urine Casts (Auto) U Epithel Cells (Auto) Urine Bacteria (Auto) Stool Occult Blood 12/30/18 12/30/18 12/30/18 05:50 05:50 05:50 WBC RBC Hgb Hct MCV MCH MCHC RDW Plt Count MPV Absolute Neuts (auto) Neutrophils % Lymphocytes % Monocytes % Eosinophils % Basophils % Nucleated RBC % ESR 101 H Retic Count 1.25 Sodium Potassium Chloride Carbon Dioxide Anion Gap BUN Creatinine Est GFR (CKD-EPI)AfAm Est GFR (CKD-EPI)NonAf Random Glucose Calcium Phosphorus Magnesium Ferritin 79.5 Total Bilirubin AST ALT Alkaline Phosphatase Creatine Kinase Troponin I C-Reactive Protein Total Protein Albumin TSH Free T4 Urine Color Urine Appearance Urine pH Ur Specific Eldon Urine Protein Urine Glucose (UA) Urine Ketones Urine Blood Urine Nitrite Urine Bilirubin Urine Urobilinogen Ur Leukocyte Esterase Urine WBC (Auto) Urine RBC (Auto) Urine Casts (Auto) U Epithel Cells (Auto) Urine Bacteria (Auto) Stool Occult Blood 12/30/18 12/30/18 09:10 13:05 WBC RBC Hgb Hct MCV MCH MCHC RDW Plt Count MPV Absolute Neuts (auto) Neutrophils % Lymphocytes % Monocytes % Eosinophils % Basophils % Nucleated RBC % ESR Retic Count Sodium Potassium Chloride Carbon Dioxide Anion Gap BUN Creatinine Est GFR (CKD-EPI)AfAm Est GFR (CKD-EPI)NonAf Random Glucose Calcium Phosphorus Magnesium Ferritin Total Bilirubin AST ALT Alkaline Phosphatase Creatine Kinase Troponin I C-Reactive Protein Total Protein Albumin TSH Free T4 Urine Color Yellow Urine Appearance Clear Urine pH 7.0 D Ur Specific Eldon 1.015 Urine Protein Negative Urine Glucose (UA) Negative Urine Ketones Negative Urine Blood Negative Urine Nitrite Positive H Urine Bilirubin Negative Urine Urobilinogen 1.0 Ur Leukocyte Esterase 3+ H Urine WBC (Auto) 98 Urine RBC (Auto) 2 Urine Casts (Auto) 8 U Epithel Cells (Auto) 1.5 Urine Bacteria (Auto) 2954.3 Stool Occult Blood Negative Active Medications Generic Name Dose Route Start Last Admin Trade Name Joeq PRN Reason Stop Dose Admin Amlodipine Besylate 10 mg 12/30/18 10:00 12/30/18 09:22 Norvasc - PO 10 mg DAILY ALANNA Administration Atorvastatin Calcium 20 mg 12/29/18 22:00 12/29/18 23:29 Lipitor - PO 20 mg HS ALANNA Administration Clopidogrel Bisulfate 75 mg 12/30/18 10:00 12/30/18 09:22 Plavix - PO 75 mg DAILY ALANNA Administration Gabapentin 100 mg 12/29/18 22:00 12/29/18 23:29 Neurontin - PO 100 mg HS ALANNA Administration Sodium Chloride 1,000 mls @ 75 mls/hr 12/29/18 18:30 12/29/18 19:30 Normal Saline - IV 75 mls/hr ASDIR ALANNA Administration Lorazepam 1 mg 12/30/18 10:59 Ativan Injection - IVPUSH 12/30/18 18:00 [employer]RIGATION SUPERVISOR ALANNA Metoprolol Succinate 50 mg 12/30/18 10:00 12/30/18 09:22 Toprol Xl - PO 50 mg DAILY ALANNA Administration Pantoprazole Sodium 40 mg 12/30/18 15:15 Protonix Iv IVPUSH DAILY ALANNA Prednisone 5 mg 12/30/18 10:00 12/30/18 09:22 Deltasone - PO 5 mg DAILY ALANNA Administration Valsartan 320 mg 12/30/18 10:00 12/30/18 09:22 Diovan - PO 320 mg DAILY ALANNA Administration ASSESSMENT/PLAN: This is an 83 yo F with PMH of hyponatremia with syncope, htn, hld, Raynaud's, Scleroderma, bibems due to near syncope. Patient was sitting on the toilet earlier today, not straining, not actively passing urine or stool when she suddenly felt very dizzy, denies associated flushing, palpitations, cp, nausea. near syncope UTI R thumb lesion possible melena r/o gib normocytic anemia near baseline Raynauds Scleroderma -likley vasovagal or orthostatic due to dehydration; infection and anemia may be contributing. orthostatic vitals negative but unclear if done correctly. continue NS @ 75 -TTE p/d, carotid dopplers moderate disease ip to 79%, TFTs wnl, nothing on cardiac monitoring so far -ekg L axis div, pvcs -UA consistent with UTI, patient is alergic to nearly all iv abx prior urine culute was susceptable to. consult ID -wbc dropped, partially dilutional and may be reactive to infection -R hand x ray negative for osteo but suspicion remain high due to elevaed esr and crp. f/u MRI R hand with benzo for claustrophobia -HGB dropped to 8.6 in setting of occult + stool. dilutional component is present but remains suspicious for blood loss -stool for occult blood + trace blood, repeat. start ppi daily -gi consult. Problem List - Problems (1) Finger lesion Code(s): L98.9 - DISORDER OF THE SKIN AND SUBCUTANEOUS TISSUE, UNSPECIFIED (2) Near syncope Code(s): R55 - SYNCOPE AND COLLAPSE (3) Raynauds disease Code(s): I73.00 - RAYNAUD'S SYNDROME WITHOUT GANGRENE (4) Scleroderma Code(s): M34.9 - SYSTEMIC SCLEROSIS, UNSPECIFIED (5) HLD (hyperlipidemia) Code(s): E78.5 - HYPERLIPIDEMIA, UNSPECIFIED (6) HTN (hypertension) Code(s): I10 - ESSENTIAL (PRIMARY) HYPERTENSION (7) UTI (urinary tract infection) Code(s): N39.0 - URINARY TRACT INFECTION, SITE NOT SPECIFIED Visit type - Emergency Visit Emergency Visit: Yes ED Registration Date: 12/29/18 Care time: The patient presented to the Emergency Department on the above date and was hospitalized for further evaluation of their emergent condition. - New Patient This patient is new to me today: No - Critical Care Critical Care patient: No - Discharge Referral Referred to [facility] No
--- NOTE | 2018-12-30 15:57 | CONS ---
DATE OF CONSULTATION: DATE OF DICTATION: 12/30/2018 HISTORY OF PRESENT ILLNESS: The patient is an 83-year-old female, past medical history of syncope, hypertension, hyperlipidemia, Raynaud's, scleroderma, recent treatment for pneumonia, for which and currently still is on prednisone therapy, who states that she felt dizzy and lightheaded yesterday and experienced some dark stool at the time. She denies abdominal pain, nausea, vomiting, hematemesis or hematochezia. Last upper endoscopy and colonoscopy was done over 10 years ago. She does take antiplatelet regimen for history of atrial fibrillation also. PAST MEDICAL AND SURGICAL HISTORY: As listed in the HPI with the addition of appendectomy and a 5th toe amputation. SOCIAL HISTORY: Does not smoke, drink, or use drugs. FAMILY HISTORY: No history of GI or gynecological malignancies. ALLERGIES: Reviewed and include ASPIRIN, CEPHALEXIN, CIPROFLOXACIN, and PENICILLIN, as well as QUINOLONES. HOME MEDICATIONS: Amlodipine, clopidogrel, metoprolol, valsartan, gabapentin, atorvastatin, and prednisone. REVIEW OF SYSTEMS: As per the HPI. PHYSICAL EXAMINATION: VITAL SIGNS: Temperature 97, pulse 78, respiratory rate 12, blood pressure 125/54, saturation 98% on room air. GENERAL: In no acute distress. HEENT: Anicteric sclerae. CARDIOVASCULAR: S1, S2, regular rate and rhythm. LUNGS: Bilaterally clear to auscultation. ABDOMEN: Soft, nontender. EXTREMITIES: No edema. LABORATORY: White blood cell count 15 on admission, currently 9. Hemoglobin 8.6/25 with 10/32 yesterday, MCV 92, platelet count 285. Chemistry: sodium 139, potassium 4.1, BUN/creatinine 19/0.7, glucose 69, calcium 8.3. Iron studies are pending. Liver tests are within normal limits. Urine 3% leukocyte esterase, positive nitrite, and stool for occult blood is trace positive. She did not have any abdominal imaging on this hospitalization. IMPRESSION: Anemia and dark stool in the setting of prednisone therapy as well as Plavix. Gastrointestinal blood loss cannot be excluded secondary to peptic ulcer disease or gastropathy. There is no sign of an overt gastrointestinal bleed at this time. She is hemodynamically stable. RECOMMENDATION: Protonix infusion. Would leave her on clear liquid diet today. Serial CBCs q.12 hours, keep hemoglobin above 8, n.p.o. midnight for diagnostic upper endoscopy tomorrow to exclude peptic ulcer disease in the setting of prednisone and antiplatelet therapy. Avoid additional NSAIDs. DO JOVANI BARON/[id number]
--- NOTE | 2018-12-30 16:00 | PN ---
Teaching Attending Note Name of Resident: Kamila Greenberg ATTENDING PHYSICIAN STATEMENT I saw and evaluated the patient. I reviewed the resident's note and discussed the case with the resident. I agree with the resident's findings and plan as documented. SUBJECTIVE: Ms Dillon says she is feeling better today. Still weak but closer to baseline. No cp, sob, n/v. OBJECTIVE: Last Vital Signs Temp Pulse Resp BP Pulse Ox 36.6 C 68 18 125/54 L 98 12/30/18 10:00 12/30/18 10:00 12/30/18 10:00 12/30/18 10:00 12/30/18 04:00 Gen: nad Pulm: ctab w/o w/r/r CV: irreg irreg but controlled w/o m/r/g Abd: +bs, s/nt/nd Ext: no c/c/e CBC, BMP 12/30/18 05:50 12/30/18 05:50 ASSESSMENT AND PLAN: (1) Near syncope -improved -suspect secondary to UTI, dehydration, and anemia -continue telemetry monitoring -continue IVF -PT following Code(s): R55 - SYNCOPE AND COLLAPSE (2) Finger lesion -x-ray negative -however ESR significantly elevated -will obtain MRI to evaluate for possible osteomyelitis Code(s): L98.9 - DISORDER OF THE SKIN AND SUBCUTANEOUS TISSUE, UNSPECIFIED (3) UTI (urinary tract infection) -urinalysis positive for UTI -with multiple allergies -consult ID Code(s): N39.0 - URINARY TRACT INFECTION, SITE NOT SPECIFIED (4) Atrial fibrillation -rate controlled -hold plavix for GI bleed Code(s): I48.91 - UNSPECIFIED ATRIAL FIBRILLATION Qualifiers: Atrial fibrillation type: chronic Qualified Code(s): I48.2 - Chronic atrial fibrillation (5) HLD (hyperlipidemia) -continue statin Code(s): E78.5 - HYPERLIPIDEMIA, UNSPECIFIED (6) HTN (hypertension) -continue norvasc, toprol xl, and valsartan Code(s): I10 - ESSENTIAL (PRIMARY) HYPERTENSION (7) Scleroderma -finished prednisone taper Code(s): M34.9 - SYSTEMIC SCLEROSIS, UNSPECIFIED (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
[2018-12-30] MEDS: PANTOPRAZOLE SODIUM 40 MG VIAL IVPUSH SCH (16:23)
[2018-12-30] MEDS: SODIUM CHLORIDE 1,000 ML IV SCH ×2 (16:25→19:50)
--- NOTE | 2018-12-30 17:05 | PN ---
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
[2018-12-30] MEDS: GABAPENTIN 100 MG CAPSULE (FP) PO SCH (21:27)
[2018-12-30] MEDS: ATORVASTATIN CA 20 MG TABLET (FP) PO SCH (21:27)
[2018-12-31 07:29] LABS: BASO % 0.4 % (0-2.0); EOS % 0.5 % (0-4.5); HEMATOCRIT 26.1 % (32.4-45.2); HEMOGLOBIN 8.7 GM/dL (10.7-15.3); LYMPH % 18.7 % (8-40); MCH 30.9 pg (25.7-33.7); MCHC 33.2 g/dl (32.0-36.0); MEAN CELL VOLUME 93.1 fl (80-96); MEAN PLT VOLUME 8.4 fl (7.5-11.1); MONO % 6.2 % (3.8-10.2); NEUT % 74.2 % (42.8-82.8); PLATELET COUNT 256 K/MM3 (134-434); RBC 2.81 M/mm3 (3.60-5.2); RDW 17.6 % (11.6-15.6); WHITE BLOOD COUNT 11.9 K/mm3 (4.0-10.0)
--- NOTE | 2018-12-31 07:46 | PN ---
Physical Exam: SUBJECTIVE: Patient seen and examined resting in bed nad. afebrile hemodynamically stable, no acute events. still feels slightly lightheaded. denies abd pain, n/v/d/c, loc, cp, palpitations. no events on telemetry OBJECTIVE: Vital Signs Period Temp Pulse Resp BP Sys/Stewart Pulse Ox Last 24 Hr 97.7 F-98.4 F 55-80 18-20 121-125/48-54 97-99 GENERAL: Awake, alert, and fully oriented, in no acute distress. HEAD: Normal with no signs of trauma. EYES: Pupils equal, round and reactive to light, extraocular movements intact, sclera anicteric, conjunctiva clear. No lid lag. EARS, NOSE, THROAT: dry mucous membranes. NECK: supple without JVD, or bruits LUNGS: mild bibasilar crackles Breast: no mass HEART: Regular rate and rhythm, normal S1 and S2 . ABDOMEN: Soft, nontender, not distended, normoactive bowel sounds, no guarding, no rebound MUSCULOSKELETAL: No CVA tenderness. UPPER EXTREMITIES: No peripheral edema, deformed joints, r thumb scab over pistat pip joint no erythema no dishcarge LOWER EXTREMITIES: No peripheral edema. NEUROLOGICAL: Cranial nerves II-XII grossly intact. Normal speech. PSYCHIATRIC: Cooperative. Good eye contact. Appropriate mood and affect. SKIN: Warm, dry, decreased turgor Laboratory Results - last 24 hr 12/30/18 12/30/18 12/30/18 05:50 05:50 05:50 WBC 9.1 RBC 2.75 L Hgb 8.6 L Hct 25.6 L D MCV 92.8 MCH 31.2 MCHC 33.6 RDW 17.9 H Plt Count 285 MPV 8.4 Absolute Neuts (auto) 6.1 Neutrophils % 66.6 D Lymphocytes % 24.8 D Monocytes % 7.9 D Eosinophils % 0.5 D Basophils % 0.2 Nucleated RBC % 0 ESR Retic Count Sodium 139 Potassium 4.1 Chloride 107 Carbon Dioxide 28 Anion Gap 5 L BUN 19 H Creatinine 0.7 Est GFR (CKD-EPI)AfAm 92.21 Est GFR (CKD-EPI)NonAf 79.56 Random Glucose 69 L Calcium 8.3 L Phosphorus 3.1 Magnesium 2.1 Ferritin Total Bilirubin 0.4 AST 12 L ALT 20 Alkaline Phosphatase 47 C-Reactive Protein 1.5 H Total Protein 6.1 L Albumin 2.8 L TSH 1.17 Free T4 1.13 Urine Color Urine Appearance Urine pH Ur Specific [place] Urine Protein Urine Glucose (UA) Urine Ketones Urine Blood Urine Nitrite Urine Bilirubin Urine Urobilinogen Ur Leukocyte Esterase Urine WBC (Auto) Urine RBC (Auto) Urine Casts (Auto) U Epithel Cells (Auto) Urine Bacteria (Auto) Stool Occult Blood 12/30/18 12/30/18 12/30/18 05:50 05:50 05:50 WBC RBC Hgb Hct MCV MCH MCHC RDW Plt Count MPV Absolute Neuts (auto) Neutrophils % Lymphocytes % Monocytes % Eosinophils % Basophils % Nucleated RBC % ESR 101 H Retic Count 1.25 Sodium Potassium Chloride Carbon Dioxide Anion Gap BUN Creatinine Est GFR (CKD-EPI)AfAm Est GFR (CKD-EPI)NonAf Random Glucose Calcium Phosphorus Magnesium Ferritin 79.5 Total Bilirubin AST ALT Alkaline Phosphatase C-Reactive Protein Total Protein Albumin TSH Free T4 Urine Color Urine Appearance Urine pH Ur Specific [place] Urine Protein Urine Glucose (UA) Urine Ketones Urine Blood Urine Nitrite Urine Bilirubin Urine Urobilinogen Ur Leukocyte Esterase Urine WBC (Auto) Urine RBC (Auto) Urine Casts (Auto) U Epithel Cells (Auto) Urine Bacteria (Auto) Stool Occult Blood 12/30/18 12/30/18 12/31/18 09:10 13:05 06:15 WBC 11.9 H RBC 2.81 L Hgb 8.7 L Hct 26.1 L MCV 93.1 MCH 30.9 MCHC 33.2 RDW 17.6 H Plt Count 256 MPV 8.4 Absolute Neuts (auto) 8.8 H Neutrophils % 74.2 Lymphocytes % 18.7 D Monocytes % 6.2 Eosinophils % 0.5 Basophils % 0.4 Nucleated RBC % 0 ESR Retic Count Sodium Potassium Chloride Carbon Dioxide Anion Gap BUN Creatinine Est GFR (CKD-EPI)AfAm Est GFR (CKD-EPI)NonAf Random Glucose Calcium Phosphorus Magnesium Ferritin Total Bilirubin AST ALT Alkaline Phosphatase C-Reactive Protein Total Protein Albumin TSH Free T4 Urine Color Yellow Urine Appearance Clear Urine pH 7.0 D Ur Specific [place] 1.015 Urine Protein Negative Urine Glucose (UA) Negative Urine Ketones Negative Urine Blood Negative Urine Nitrite Positive H Urine Bilirubin Negative Urine Urobilinogen 1.0 Ur Leukocyte Esterase 3+ H Urine WBC (Auto) 98 Urine RBC (Auto) 2 Urine Casts (Auto) 8 U Epithel Cells (Auto) 1.5 Urine Bacteria (Auto) 2954.3 Stool Occult Blood Negative Active Medications Generic Name Dose Route Start Last Admin Trade Name Ethan PRN Reason Stop Dose Admin Amlodipine Besylate 10 mg 12/30/18 10:00 12/30/18 09:22 Norvasc - PO 10 mg DAILY ALANNA Administration Atorvastatin Calcium 20 mg 12/29/18 22:00 12/30/18 21:27 Lipitor - PO 20 mg HS ALANNA Administration Clopidogrel Bisulfate 75 mg 12/30/18 10:00 12/30/18 09:22 Plavix - PO 75 mg DAILY ALANNA Administration Gabapentin 100 mg 12/29/18 22:00 12/30/18 21:27 Neurontin - PO 100 mg HS ALANNA Administration Sodium Chloride 1,000 mls @ 75 mls/hr 12/29/18 18:30 12/30/18 19:50 Normal Saline - IV Not Given ASDIR ALANNA Metoprolol Succinate 50 mg 12/30/18 10:00 12/30/18 09:22 Toprol Xl - PO 50 mg DAILY ALANNA Administration Pantoprazole Sodium 40 mg 12/30/18 15:15 12/30/18 16:23 Protonix Iv IVPUSH 40 mg DAILY ALANNA Administration Prednisone 5 mg 12/30/18 10:00 12/30/18 09:22 Deltasone - PO 5 mg DAILY ALANNA Administration Valsartan 320 mg 12/30/18 10:00 12/30/18 09:22 Diovan - PO 320 mg DAILY ALANNA Administration ASSESSMENT/PLAN: This is an 83 yo F with PMH of hyponatremia with syncope, htn, hld, Raynaud's, Scleroderma, bibems due to near syncope. Patient was sitting on the toilet earlier today, not straining, not actively passing urine or stool when she suddenly felt very dizzy, denies associated flushing, palpitations, cp, nausea. near syncope UTI R thumb lesion possible melena r/o gib normocytic anemia near baseline Raynauds Scleroderma -caty vasovagal or orthostatic due to dehydration; infection and anemia may be contributing. orthostatic vitals negative but unclear if done correctly. s/p iv hydration -TTE p/d, carotid dopplers moderate disease ip to 79%, TFTs wnl, PACs on cardiac monitoring -ekg L axis div, pvcs -UA consistent with UTI, however patient asymptomatic, id does not recommend abx -R hand x ray negative for osteo but suspicious due to elevaed esr and crp, possible calcinosis. f/u MRI R hand with benzo for claustrophobia. -HGB dropped to 8.7 in setting of occult + stool. dilutional component is present but remains suspicious for blood loss in a steroid user -Gi consult appreciated: ppi, egd this morning Problem List - Problems (1) Finger lesion Code(s): L98.9 - DISORDER OF THE SKIN AND SUBCUTANEOUS TISSUE, UNSPECIFIED (2) Near syncope Code(s): R55 - SYNCOPE AND COLLAPSE (3) Raynauds disease Code(s): I73.00 - RAYNAUD'S SYNDROME WITHOUT GANGRENE (4) Scleroderma Code(s): M34.9 - SYSTEMIC SCLEROSIS, UNSPECIFIED (5) HLD (hyperlipidemia) Code(s): E78.5 - HYPERLIPIDEMIA, UNSPECIFIED (6) HTN (hypertension) Code(s): I10 - ESSENTIAL (PRIMARY) HYPERTENSION (7) UTI (urinary tract infection) Code(s): N39.0 - URINARY TRACT INFECTION, SITE NOT SPECIFIED Visit type - Emergency Visit Emergency Visit: Yes ED Registration Date: 12/30/18 Care time: The patient presented to the Emergency Department on the above date and was hospitalized for further evaluation of their emergent condition. - New Patient This patient is new to me today: No - Critical Care Critical Care patient: No - Discharge Referral Referred to [facility] No
[2018-12-31 07:59] LABS: CALCIUM 7.7 mg/dL (8.5-10.1); MAGNESIUM 1.9 mg/dL (1.8-2.4); PHOSPHOROUS 2.8 mg/dL (2.5-4.9); POTASSIUM 4.4 mmol/L (3.5-5.1)
[2018-12-31 08:06] LABS: SERUM IRON SATURATION 15 % (15-55); TOTAL IRON BINDING CAPACITY 244 ug/dL (250-450); UIBC 207 ug/dL (118-369)
[2018-12-31] MEDS: PANTOPRAZOLE SODIUM 40 MG VIAL IVPUSH SCH (10:32)
[2018-12-31] MEDS: VALSARTAN 160 MG TABLET (UD) PO SCH (10:33)
[2018-12-31] MEDS: predniSONE 5 MG TABLET (UD) PO SCH (10:33)
[2018-12-31] MEDS: amLODIPine BESYLATE 10 MG TABLET (FP) PO SCH (10:33)
[2018-12-31] MEDS: CLOPIDOGREL BISULFATE 75 MG TABLET (FP) PO SCH (10:38)
--- NOTE | 2018-12-31 11:51 | CONS ---
DATE OF CONSULTATION: DATE OF DICTATION: 12/31/2018 HISTORY OF PRESENT ILLNESS: This is an 83-year-old woman. She lives at home with her . She has a history of scleroderma and Raynaud syndrome. She has had scleroderma for 20 years. She was admitted for dizziness at home when she was using the bathroom. She uses a walker to ambulate. She could not walk out of the bathroom. Her brought the wheelchair. She continued to feel dizzy and he called an ambulance. There is no history of fevers, no dysuria, no suprapubic pain. She is clinically improved, and the dizziness has resolved after receiving IV fluids in the emergency room. I am asked to see her for possible UTI. PAST MEDICAL HISTORY: Notable for history of scleroderma for 20 years, Raynaud syndrome, hypertension, hyperlipidemia, atrial fibrillation. She has had venous stasis ulcers that are currently resolved. SURGICAL HISTORY: She is status post appendectomy. ALLERGIES: She is allergic to ASPIRIN, KEFLEX, CIPRO, and PENICILLIN. Throat swelling with PENICILLIN, rash with QUINOLONES. She has tolerated Azactam in the past. MEDICATIONS AT HOME: Include prednisone 5 mg daily, valsartan, metoprolol, Neurontin, Plavix, bethanechol, Lipitor, and Norvasc. SOCIAL HISTORY: She is . She lives with her spouse. There is no history of alcoholism. REVIEW OF SYSTEMS: She reports she has generalized weakness, which she attributes to the prednisone use. She has no cough. She has no nausea or vomiting. She notes she has an ulcer on her right thumb that she has had for the last several months. PHYSICAL EXAMINATION General: She is awake and alert, a pleasant elderly woman. Vital signs: When I saw her on the , her temperature was 98.2, pulse of 80, blood pressure 122/53, respiratory rate 18, she is saturating 99% on room air. HEENT: She is normocephalic. Her eyes are anicteric. Neck: Supple. Lungs: Clear to auscultation. Heart: Regular rate and rhythm. Abdomen: Soft, nontender. She has no suprapubic pain. She has no CVA tenderness. Extremities: Both hands she has arthritic changes. She has a small 1-1.5-cm lesion on her right hand that was evaluated on her prior admission in November. It is clean and dry at this time. It was felt to be possible calcinosis on the left when she was last evaluated. DIAGNOSTIC DATA: Her labs are notable for a white count of 9.1, hemoglobin 8.6, platelets are 285. Her BUN is 19, creatinine 0.7, with normal LFTs. Urinalysis has 3+ leukocytes, 98 white cells. Chest x-ray shows blunting of the right angle with prominent mediastinum. She had an x-ray of her finger that showed osteoarthritic changes. SUMMARY: 1. This is an older woman with scleroderma admitted with dizziness. She does not appear to have any symptoms to suggest symptomatic urinary tract infection at this time. She has multiple drug allergies, as well. Given the fact she is asymptomatic, I would not treat her at this time. 2. Anemia. She is scheduled for endoscopy. 3. Scleroderma. She is on tapering prednisone.. 4. 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 Multiple antibiotic allergies are noted. Further recommendations to follow with followup cultures. VANDANA BAKER M.D. [id number]
--- NOTE | 2018-12-31 13:27 | PN ---
Teaching Attending Note Name of Resident: Kamila Greenberg ATTENDING PHYSICIAN STATEMENT I saw and evaluated the patient. I reviewed the resident's note and discussed the case with the resident. I agree with the resident's findings and plan as documented. SUBJECTIVE: Ms Dillon says she is feeling weak but this is chronic. Otherwise says she is feeling well. Denies cp, sob, n/v. OBJECTIVE: Last Vital Signs Temp Pulse Resp BP Pulse Ox 36.9 C 84 18 122/52 L 96 12/31/18 06:00 12/31/18 10:00 12/31/18 10:00 12/31/18 10:00 12/31/18 10:00 Gen: nad Pulm: ctab w/o w/r/r CV: rrr w/o m/r/g Abd: +bs, s/nt/nd Ext: no c/c/e CBC, BMP 12/31/18 06:15 12/31/18 06:15 ASSESSMENT AND PLAN: (1) Near syncope -resolved -secondary to dehydration and anemia -PT consulted Code(s): R55 - SYNCOPE AND COLLAPSE (2) Finger lesion -MRI finger pending Code(s): L98.9 - DISORDER OF THE SKIN AND SUBCUTANEOUS TISSUE, UNSPECIFIED (3) UTI (urinary tract infection) -appreciate ID assistance -asymptomatic bacteriuria -no antibiotics at this time Code(s): N39.0 - URINARY TRACT INFECTION, SITE NOT SPECIFIED (4) Atrial fibrillation -rate controlled -hold plavix for GI bleed Code(s): I48.91 - UNSPECIFIED ATRIAL FIBRILLATION Qualifiers: Atrial fibrillation type: chronic Qualified Code(s): I48.2 - Chronic atrial fibrillation (5) HLD (hyperlipidemia) -continue statin Code(s): E78.5 - HYPERLIPIDEMIA, UNSPECIFIED (6) HTN (hypertension) -continue norvasc, toprol xl, and valsartan Code(s): I10 - ESSENTIAL (PRIMARY) HYPERTENSION (7) Scleroderma -finished prednisone taper Code(s): M34.9 - SYSTEMIC SCLEROSIS, UNSPECIFIED (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
--- NOTE | 2018-12-31 14:04 | PN ---
Progress Note (short form) - Note Progress Note: EGD today revealing severe distal esophagitis, no active bleeding. Hiatal hernia also seen. See scanned report for complete details. Recommendations: -PPI twice daily -Antireflux measures -Avoid NSAIDs if possible -Repeat EGD in 8-12 weeks to assess for healing of esophagitis. -Risks/benefits of resuming antithrombotics need to be carefully weighed as this will place pt at increased risk of bleeding. If deemed indicated per cardio and primary team recommend continue PPI therapy.
[2018-12-31] MEDS: SODIUM CHLORIDE 1,000 ML IV SCH (21:51)
[2018-12-31] MEDS: ATORVASTATIN CA 20 MG TABLET (FP) PO SCH (21:51)
[2018-12-31] MEDS: GABAPENTIN 100 MG CAPSULE (FP) PO SCH (21:51)
--- NOTE | 2019-01-01 07:42 | PN ---
Physical Exam: SUBJECTIVE: Patient seen and examined resting in bed nad. afebrile hemodynamically stable, no acute events. no longer lightheaded. denies abd pain, n/v/d/c, loc, cp, palpitations. no events on telemetry. egd yesterday OBJECTIVE: Vital Signs Period Temp Pulse Resp BP Sys/Stewart Pulse Ox Last 24 Hr 97.8 F-99 F 62-84 16-22 94-122/31-52 95-100 GENERAL: Awake, alert, and fully oriented, in no acute distress. HEAD: Normal with no signs of trauma. EYES: Pupils equal, round and reactive to light, extraocular movements intact, sclera anicteric, conjunctiva clear. No lid lag. EARS, NOSE, THROAT: dry mucous membranes. NECK: supple without JVD, or bruits LUNGS: mild bibasilar crackles Breast: no mass HEART: Regular rate and rhythm, normal S1 and S2 . ABDOMEN: Soft, nontender, not distended, normoactive bowel sounds, no guarding, no rebound MUSCULOSKELETAL: No CVA tenderness. UPPER EXTREMITIES: No peripheral edema, deformed joints, r thumb scab over pistat pip joint no erythema no dishcarge LOWER EXTREMITIES: No peripheral edema. NEUROLOGICAL: Cranial nerves II-XII grossly intact. Normal speech. PSYCHIATRIC: Cooperative. Good eye contact. Appropriate mood and affect. SKIN: Warm, dry, decreased turgor Laboratory Results - last 24 hr 12/30/18 12/31/18 12/31/18 05:50 06:15 06:15 WBC 11.9 H RBC 2.81 L Hgb 8.7 L Hct 26.1 L MCV 93.1 MCH 30.9 MCHC 33.2 RDW 17.6 H Plt Count 256 MPV 8.4 Absolute Neuts (auto) 8.8 H Neutrophils % 74.2 Lymphocytes % 18.7 D Monocytes % 6.2 Eosinophils % 0.5 Basophils % 0.4 Nucleated RBC % 0 Haptoglobin 352 H Sodium 138 Potassium 4.4 Chloride 106 Carbon Dioxide 24 Anion Gap 8 BUN 23 H Creatinine 1.0 Est GFR (CKD-EPI)AfAm 59.91 Est GFR (CKD-EPI)NonAf 51.69 Random Glucose 91 Calcium 7.7 L Phosphorus 2.8 Magnesium 1.9 Iron 37 TIBC 244 L Iron Saturation 15 Transferrin 186 L Active Medications Generic Name Dose Route Start Last Admin Trade Name Joeq PRN Reason Stop Dose Admin Amlodipine Besylate 10 mg 12/30/18 10:00 12/31/18 10:33 Norvasc - PO 10 mg DAILY ALANNA Administration Atorvastatin Calcium 20 mg 12/29/18 22:00 12/31/18 21:51 Lipitor - PO 20 mg HS ALANNA Administration Clopidogrel Bisulfate 75 mg 12/30/18 10:00 12/31/18 10:38 Plavix - PO Not Given DAILY ALANNA Gabapentin 100 mg 12/29/18 22:00 12/31/18 21:51 Neurontin - PO 100 mg HS ALANNA Administration Sodium Chloride 1,000 mls @ 75 mls/hr 12/29/18 18:30 12/31/18 21:51 Normal Saline - IV 75 mls/hr ASDIR ALANNA Administration Metoprolol Succinate 50 mg 12/30/18 10:00 12/31/18 10:33 Toprol Xl - PO 50 mg DAILY ALANNA Administration Pantoprazole Sodium 40 mg 12/30/18 15:15 12/31/18 10:32 Protonix Iv IVPUSH 40 mg DAILY ALANNA Administration Prednisone 5 mg 12/30/18 10:00 12/31/18 10:33 Deltasone - PO 5 mg DAILY ALANNA Administration Valsartan 320 mg 12/30/18 10:00 12/31/18 10:33 Diovan - PO 320 mg DAILY ALANNA Administration ASSESSMENT/PLAN: This is an 83 yo F with PMH of hyponatremia with syncope, htn, hld, Raynaud's, Scleroderma, bibems due to near syncope. Patient was sitting on the toilet earlier today, not straining, not actively passing urine or stool when she suddenly felt very dizzy, denies associated flushing, palpitations, cp, nausea. near syncope UTI R thumb lesion possible melena r/o gib normocytic anemia near baseline Raynauds Scleroderma severe protein calorie malnutrition -likley vasovagal or orthostatic due to dehydration; infection and anemia may be contributing. orthostatic vitals negative but unclear if done correctly. s/p iv hydration -TTE p/d, carotid dopplers moderate disease ip to 79%, TFTs wnl, PACs on cardiac monitoring -ekg L axis div, pvcs -UA consistent with UTI, however patient asymptomatic, id does not recommend abx -R hand x ray negative for osteo but suspicious due to elevated esr and crp, possible calcinosis. f/u MRI R hand with benzo for claustrophobia. -HGB dropped to 8.7 in setting of occult + stool. dilutional component is present but remains suspicious for blood loss in a steroid user -pod1 s/p egd: severe gastritis wo bleed. recommended to repeat in 12 w to confirm healing -soft diet, ppi 40 bid -Gi consult appreciated Problem List - Problems (1) Finger lesion Code(s): L98.9 - DISORDER OF THE SKIN AND SUBCUTANEOUS TISSUE, UNSPECIFIED (2) Near syncope Code(s): R55 - SYNCOPE AND COLLAPSE (3) Raynauds disease Code(s): I73.00 - RAYNAUD'S SYNDROME WITHOUT GANGRENE (4) Scleroderma Code(s): M34.9 - SYSTEMIC SCLEROSIS, UNSPECIFIED (5) HLD (hyperlipidemia) Code(s): E78.5 - HYPERLIPIDEMIA, UNSPECIFIED (6) HTN (hypertension) Code(s): I10 - ESSENTIAL (PRIMARY) HYPERTENSION (7) UTI (urinary tract infection) Code(s): N39.0 - URINARY TRACT INFECTION, SITE NOT SPECIFIED (8) Severe protein-calorie malnutrition Code(s): E43 - UNSPECIFIED SEVERE PROTEIN-CALORIE MALNUTRITION Visit type - Emergency Visit Emergency Visit: Yes ED Registration Date: 12/30/18 Care time: The patient presented to the Emergency Department on the above date and was hospitalized for further evaluation of their emergent condition. - New Patient This patient is new to me today: No - Critical Care Critical Care patient: No - Discharge Referral Referred to [facility] No
--- NOTE | 2019-01-01 08:02 | PN ---
Teaching Attending Note Name of Resident: Kamila Greenberg ATTENDING PHYSICIAN STATEMENT I saw and evaluated the patient. I reviewed the resident's note and discussed the case with the resident. I agree with the resident's findings and plan as documented with exceptions below. SUBJECTIVE: Patient seen and examined, Feels better, no complaints. OBJECTIVE: Vital Signs Period Temp Pulse Resp BP Sys/Stewart Pulse Ox Last 24 Hr 97.8 F-99 F 62-92 16-22 94-135/31-64 95-100 Intake & Output 12/29/18 12/30/18 12/31/18 01/01/19 23:59 23:59 23:59 23:59 Intake Total 250 2285 1390 900 Balance 250 2285 1390 900 Weight 106 lb 0.6 oz 106 lb 9.6 oz 106 lb General: sitting in chair in no acute distress Chest: bibasilar fine rales (chronic) Abdomen:soft, NT, ND, pos bowel sounds Extremities: right thum scab with excoriation, no erythema/swelling or tenderness noted, no discharge Neck: soft, supple, no JVD CVS:S1S2 irregular Home Medications Medication Instructions Recorded RX: Amlodipine Besylate [Norvasc -] 10 mg PO DAILY 10/13/18 RX: Clopidogrel Bisulfate [Plavix] 75 mg PO DAILY 10/13/18 RX: Metoprolol Succinate [Toprol 50 mg PO DAILY 10/13/18 Xl] RX: Valsartan 320 mg PO DAILY 10/13/18 RX: Gabapentin [Neurontin -] 100 mg PO HS capsule 10/21/18 RX: Atorvastatin Ca [Lipitor] 20 mg PO HS 12/17/18 RX: Bethanechol Chloride 25 mg PO TID 12/22/18 RX: predniSONE [Deltasone -] 20 mg PO DAILY #14 tablet 12/22/18 Active Medications Amlodipine Besylate (Norvasc -) 10 mg PO DAILY [facility] Last Admin: 01/01/19 10:10 Dose: 10 mg Atorvastatin Calcium (Lipitor -) 20 mg PO HS [facility] Last Admin: 12/31/18 21:51 Dose: 20 mg Clopidogrel Bisulfate (Plavix -) 75 mg PO DAILY [facility] Last Admin: 01/01/19 10:10 Dose: 75 mg Gabapentin (Neurontin -) 100 mg PO HS [facility] Last Admin: 06/05/19 21:51 Dose: 100 mg Sodium Chloride (Normal Saline -) 1,000 mls @ 75 mls/hr IV ASDIR [facility] Last Admin: 12/31/18 21:51 Dose: 75 mls/hr Metoprolol Succinate (Toprol Xl -) 50 mg PO DAILY [facility] Last Admin: 01/01/19 10:10 Dose: 50 mg Pantoprazole Sodium (Protonix Iv) 40 mg IVPUSH BID [facility] Prednisone (Deltasone -) 5 mg PO DAILY [facility] Last Admin: 01/01/19 10:10 Dose: 5 mg Valsartan (Diovan -) 320 mg PO DAILY [facility] Last Admin: 01/01/19 10:10 Dose: 320 mg Laboratory Results - last 24 hr 01/01/19 01/01/19 06:47 06:47 WBC 12.1 H RBC 2.79 L Hgb 8.7 L Hct 25.8 L MCV 92.3 MCH 31.0 MCHC 33.6 RDW 17.5 H Plt Count 244 MPV 8.3 Absolute Neuts (auto) 9.2 H Neutrophils % 75.6 Lymphocytes % 17.6 Monocytes % 6.4 Eosinophils % 0.3 Basophils % 0.1 Nucleated RBC % 0 Sodium 140 Potassium 4.1 Chloride 108 H Carbon Dioxide 23 Anion Gap 9 BUN 15 Creatinine 0.8 Est GFR (CKD-EPI)AfAm 78.47 Est GFR (CKD-EPI)NonAf 67.70 Random Glucose 71 L Calcium 8.1 L Phosphorus 3.0 Magnesium 1.9 Total Bilirubin 0.5 AST 9 L ALT 14 Alkaline Phosphatase 43 L Total Protein 5.9 L Albumin 2.6 L EGD results reviewed ASSESSMENT AND PLAN: 83 yof with PMhx of Scleroderma, Atrial fibrillation, not on AC but on plavix, raynaud's phenomenon, ILD on imaging in 2012Chronic hyponatremia/SIADH, HTN, HLD , OA, recurrent stasis ulcer RLE since 02/2018 being followed at wound care ( With Dr. Hernández and Dr. Austin), recent admissions to [facility] in 09/2018 with cellulitis/HCAP, then 11/2018 with weakness suspected from hypovolumia/ steroid induced myopathy readmitted with near syncope after straining on toilet and found pos FOBT. 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 EGD with severe esophagitis. PPI BID Cardiology consulted Dr. Serrato, case discussed with him. Will follow up if needs rn long term care plavix (Per patient was taken off coumadin and placed on plavix by Dr. Girard given recurrent falls). Encourage po intake. Telemetry with no events, Recent 2D echo. Carotid duplex noted, outpatient monitoring. ID input noted, monitor off abx, suspect asymptomatic bacteruria. MRI right hand pending. ESR/CRP noted. dr. Barker input if concerns. Off prednisone taper. Outpatient rheumatology follow up. Continue amlodipine/Metoprolol/ARB as tolerated.Continue statin. PT eval noted, home PT with VNS. DVTPPX SCDs Dispo d/c in 24 hours pending MRI hand, cardiology input if no new concerns. Plan discussed with patient and nursing, all questions answered.
[2019-01-01 08:07] LABS: BASO % 0.1 % (0-2.0); EOS % 0.3 % (0-4.5); HEMATOCRIT 25.8 % (32.4-45.2); HEMOGLOBIN 8.7 GM/dL (10.7-15.3); LYMPH % 17.6 % (8-40); MCHC 33.6 g/dl (32.0-36.0); MEAN CELL VOLUME 92.3 fl (80-96); MEAN PLT VOLUME 8.3 fl (7.5-11.1); MONO % 6.4 % (3.8-10.2); NEUT % 75.6 % (42.8-82.8); PLATELET COUNT 244 K/MM3 (134-434); RBC 2.79 M/mm3 (3.60-5.2); RDW 17.5 % (11.6-15.6); WHITE BLOOD COUNT 12.1 K/mm3 (4.0-10.0)
[2019-01-01 08:33] LABS: ALBUMIN 2.6 g/dl (3.4-5.0); BILIRUBIN,TOTAL 0.5 mg/dL (0.2-1); CALCIUM 8.1 mg/dL (8.5-10.1); CREATININE 0.8 mg/dL (0.55-1.3); MAGNESIUM 1.9 mg/dL (1.8-2.4); POTASSIUM 4.1 mmol/L (3.5-5.1); TOT PROT 5.9 g/dl (6.4-8.2)
[2019-01-01] MEDS: amLODIPine BESYLATE 10 MG TABLET (FP) PO SCH (10:10)
[2019-01-01] MEDS: CLOPIDOGREL BISULFATE 75 MG TABLET (FP) PO SCH (10:10)
[2019-01-01] MEDS: predniSONE 5 MG TABLET (UD) PO SCH (10:10)
[2019-01-01] MEDS: VALSARTAN 160 MG TABLET (UD) PO SCH (10:10)
--- NOTE | 2019-01-01 10:56 | CON.CARD ---
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 She notes her nurse has noticed her stool has been black for the past week, which she believes is related to taking iron daily. Today, patient notes she began feeling lightheaded , "like she was going to pass out," upon getting up and trying to go to the bathroom 2.5 hours ago (she ambulates with a walker at baseline). She reports immediately sitting down as she thought she was going to fall and her symptoms self-resolved after 15 minutes. As per patients daughter, she notes the patient has had symptoms similar to this before when she has had an UTI. Patient endorses mild chills, diaphoresis, and generalized weakness while in the ED. She is currently on a tapered dose of Prednisone for her Raynaud's but denies currently being on antibiotics for last UTI. Pt denies any dysarthria, headache, neck pain, diplopia, numbness/tingling/weakness, cp, back pain. The patient denies shortness of breath, and headache. Denies fever, nausea, vomit, diarrhea and constipation. Denies dysuria, frequency, urgency and hematuria. Allergies: Aspirin, cephalexin, ciprofloxacin, penicillins, quinolones Past surgical history: appendectomy, abdominal surgery, orthopedic surgery Social history: No reported PCP: Dr. Enmanuel Girard - History Source History Provided By: Patient, Medical Record Limitations to Obtaining History: No Limitations - Past Medical History Cardio/Vascular: Yes: AFIB (paroxysmal, not a candidate for anticoagulation due to frequent falls.), HTN, Hyperlipdemia Pulmonary: Yes: Bronchitis, COPD, Pneumonia, Pulmonary Fibrosis. No: Asthma, O2 Dependent, Previously Intubated, Pulmonary Embolus, Sleep Apnea Reproductive: Yes: Postmenopausal ...: No Heme/Onc: Yes: Anemia Psych: Yes: Anxiety, Depression Musculoskeletal: Yes: Chronic low back pain Rheumatology: Yes: Other (scleroderma, Raynauds syndrome) Additional Medical History: Anxiety. Hyponatremia. MGUS - Alcohol/Substance Use Hx Alcohol Use: No - Smoking History Smoking history: Never smoked Have you smoked in the past 12 months: No Aproximately how many cigarettes per day: 0 - Social History Usual Living Arrangement: With Spouse ADL: Family Assistance Home Medications - Allergies Allergies/Adverse Reactions: Allergies Allergy/AdvReac Type Severity Reaction Status Date / Time aspirin Allergy Swelling Verified 12/29/18 15:54 cephalexin [From Keflex] Allergy Verified 12/29/18 15:54 ciprofloxacin [From Cipro] Allergy Swelling Verified 12/29/18 15:54 ciprofloxacin HCl Allergy Swelling Verified 12/29/18 15:54 [From Cipro] Penicillins Allergy Swelling Verified 12/29/18 15:54 Quinolones Allergy Verified 12/29/18 15:54 - Home Medications Home Medications: Ambulatory Orders Amlodipine Besylate [Norvasc -] 10 mg PO DAILY 10/13/18 Clopidogrel Bisulfate [Plavix] 75 mg PO DAILY 10/13/18 Metoprolol Succinate [Toprol Xl] 50 mg PO DAILY 10/13/18 Valsartan 320 mg PO DAILY 10/13/18 Gabapentin [Neurontin -] 100 mg PO HS capsule 10/21/18 Atorvastatin Ca [Lipitor] 20 mg PO HS 12/17/18 Bethanechol Chloride 25 mg PO TID 12/22/18 predniSONE [Deltasone -] 20 mg PO DAILY #14 tablet 12/22/18 Family Disease History - Family Disease History Family History: Denies Review of Systems - Review of Systems Constitutional: reports: Loss of Appetite, Weakness Eyes: reports: No Symptoms HENT: reports: Difficult Swallowing Neck: reports: Decreased ROM Cardiovascular: reports: Shortness of Breath Respiratory: reports: Exercise Intolerance, SOB on Exertion Gastrointestinal: reports: Dysphagia Genitourinary: reports: No Symptoms Breasts: reports: No Symptoms Reported Musculoskeletal: reports: Joint Pain, Muscle Weakness Neurological: reports: Weakness - Risk Factors Known Risk Factors: Yes: Age, Hypercholesterolemia, Hypertension, Physical Inactivity, Other (scleroderma; COPD) Vital Signs: Vital Signs Temperature 98.1 F 01/01/19 06:00 Pulse Rate 92 H 01/01/19 06:00 Respiratory Rate 18 01/01/19 06:00 Blood Pressure 125/48 L 01/01/19 06:00 O2 Sat by Pulse Oximetry (%) 96 12/31/18 14:34 Constitutional: Yes: Anxious, Thin Eyes: Yes: WNL HENT: Yes: WNL Neck: Yes: WNL Respiratory: Yes: Diminished Gastrointestinal: Yes: Soft Renal/: No: Anuria Cardiovascular: Yes: Regular Rate and Rhythm JVD: No Carotid Bruit: No PMI: Non-Displaced Heart Sounds: Yes: S1, S2 Murmur: Yes: Diastolic Murmur, Grade 2 Musculoskeletal: Yes: Joint Stiffness, Muscle Weakness Extremities: Yes: Cool Edema: No Peripheral Pulses WNL: No Peripheral Pulses: 1+ Left Doralis Pedis, 1+ Right Dorsalis Pedis Integumentary: Yes: Other (fingers, especially thumb, blanched) Neurological: Yes: Alert, Oriented, Unsteady Gait, Weakness Psychiatric: Yes: Alert, Oriented, Other (anxiety/depression) - Other Data Labs, Other Data: CBC, BMP 01/01/19 06:47 01/01/19 06:47 Abnormal Lab Results 01/01/19 01/01/19 06:47 06:47 WBC 12.1 H RBC 2.79 L Hgb 8.7 L Hct 25.8 L RDW 17.5 H Absolute Neuts (auto) 9.2 H Chloride 108 H Random Glucose 71 L Calcium 8.1 L AST 9 L Alkaline Phosphatase 43 L Total Protein 5.9 L Albumin 2.6 L Abnormal Lab Results 01/02/19 01/02/19 06:20 06:20 WBC 14.8 H RBC 2.83 L Hgb 8.7 L Hct 26.1 L RDW 17.3 H Calcium 8.4 L Magnesium 1.7 L AST 8 L Total Protein 6.1 L Albumin 2.7 L Ejection Fraction %: LVEF > or = 40 % Imaging - Results Chest X-ray: Image Reviewed EKG: Image Reviewed (NSR; frequent APCs) Problem List - Problems (1) APC (atrial premature contractions) Assessment/Plan: Chart reviewed. Previous EKGs dating to 2011 reviewed: no evidence of atrial fibrillation (even with one EKG "computer reading" of AFthat, when perused, was NSR with APCs). GI workup noted: pt is at elevated risk for GI bleed. In adition, hx of hyponatremia, multiple falls, and now with lightheadedness. No hx CAD. Discussed with Ms. Dillon, Dr. Enmanuel Girard (PMD) and Dr. Tena. no anticoagulant is needed, and clopidgrel will be stopped. Code(s): I49.1 - ATRIAL PREMATURE DEPOLARIZATION (2) Anemia Code(s): D64.9 - ANEMIA, UNSPECIFIED (3) Finger lesion Code(s): L98.9 - DISORDER OF THE SKIN AND SUBCUTANEOUS TISSUE, UNSPECIFIED (4) GI bleed Code(s): K92.2 - GASTROINTESTINAL HEMORRHAGE, UNSPECIFIED (5) Lightheadedness Assessment/Plan: orthostatic VS maintain hydration. F/u electrolytes. 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
[2019-01-01] MEDS: PANTOPRAZOLE SODIUM 40 MG VIAL IVPUSH SCH ×3 (11:16→21:47)
[2019-01-01] MEDS ORDERED: PT OWN MED DRAWER 7, Y5N ONE (21:34)
[2019-01-01] MEDS: GABAPENTIN 100 MG CAPSULE (FP) PO SCH (21:46)
[2019-01-01] MEDS: ATORVASTATIN CA 20 MG TABLET (FP) PO SCH (21:46)
[2019-01-01] MEDS: SODIUM CHLORIDE 1,000 ML IV SCH (21:46)
[2019-01-02] MEDS: SODIUM CHLORIDE 1,000 ML IV SCH (06:03)
[2019-01-02 07:52] LABS: HEMATOCRIT 26.1 % (32.4-45.2); HEMOGLOBIN 8.7 GM/dL (10.7-15.3); MCH 30.8 pg (25.7-33.7); MCHC 33.4 g/dl (32.0-36.0); MEAN CELL VOLUME 92.2 fl (80-96); MEAN PLT VOLUME 8.2 fl (7.5-11.1); RBC 2.83 M/mm3 (3.60-5.2); RDW 17.3 % (11.6-15.6); WHITE BLOOD COUNT 14.8 K/mm3 (4.0-10.0)
[2019-01-02 09:15] LABS: ALBUMIN 2.7 g/dl (3.4-5.0); BILIRUBIN,TOTAL 0.4 mg/dL (0.2-1); CALCIUM 8.4 mg/dL (8.5-10.1); CREATININE 0.9 mg/dL (0.55-1.3); MAGNESIUM 1.7 mg/dL (1.8-2.4); PHOSPHOROUS 2.7 mg/dL (2.5-4.9); POTASSIUM 4.2 mmol/L (3.5-5.1); TOT PROT 6.1 g/dl (6.4-8.2)
[2019-01-02] MEDS: amLODIPine BESYLATE 10 MG TABLET (FP) PO SCH (10:21)
[2019-01-02] MEDS: VALSARTAN 160 MG TABLET (UD) PO SCH (10:21)
[2019-01-02] MEDS: predniSONE 5 MG TABLET (UD) PO SCH (10:21)
[2019-01-02] MEDS: PANTOPRAZOLE SODIUM 40 MG VIAL IVPUSH SCH ×2 (10:22→21:18)
--- NOTE | 2019-01-02 10:25 | PN ---
Physical Exam: SUBJECTIVE: Patient seen and examined, some dizziness this AM, overall feels well, no new right thumb pain, discharge or swelling noted OBJECTIVE: Vital Signs Period Temp Pulse Resp BP Sys/Stewart Pulse Ox Last 24 Hr 97.6 F-98 F 57-98 18-20 99-139/45-69 Intake & Output 12/30/18 12/31/18 01/01/19 01/02/19 23:59 23:59 23:59 23:59 Intake Total 2285 7804 014 9726 Balance 2285 7144 972 0669 Weight 106 lb 9.6 oz 106 lb General: sitting in chair in no acute distress Chest: bibasilar fine rales (chronic) Abdomen:soft, NT, ND, pos bowel sounds Extremities: right thum scab with excoriation, no erythema/swelling or tenderness noted, no discharge Neck: soft, supple, no JVD CVS:S1S2 irregular (telemetry NSR with PACs) Laboratory Results - last 24 hr 01/02/19 01/02/19 06:20 06:20 WBC 14.8 H RBC 2.83 L Hgb 8.7 L Hct 26.1 L MCV 92.2 MCH 30.8 MCHC 33.4 RDW 17.3 H MPV 8.2 Sodium 137 Potassium 4.2 Chloride 106 Carbon Dioxide 23 Anion Gap 8 BUN 14 Creatinine 0.9 Est GFR (CKD-EPI)AfAm 68.05 Est GFR (CKD-EPI)NonAf 58.71 Random Glucose 93 Calcium 8.4 L Phosphorus 2.7 Magnesium 1.7 L Total Bilirubin 0.4 AST 8 L ALT 13 Alkaline Phosphatase 54 Total Protein 6.1 L Albumin 2.7 L Active Medications Generic Name Dose Route Start Last Admin Trade Name Freq PRN Reason Stop Dose Admin Amlodipine Besylate 10 mg 12/30/18 10:00 01/01/19 10:10 Norvasc - PO 10 mg DAILY ALANNA Administration Atorvastatin Calcium 20 mg 12/29/18 22:00 01/01/19 21:46 Lipitor - PO 20 mg HS ALANNA Administration Gabapentin 100 mg 12/29/18 22:00 01/01/19 21:46 Neurontin - PO 100 mg HS ALANAN Administration Sodium Chloride 1,000 mls @ 75 mls/hr 12/29/18 18:30 01/02/19 06:03 Normal Saline - IV 75 mls/hr ASDIR ALANNA Administration Metoprolol Succinate 50 mg 12/30/18 10:00 01/01/19 10:10 Toprol Xl - PO 50 mg DAILY ALANNA Administration Pantoprazole Sodium 40 mg 01/01/19 10:15 01/01/19 21:47 Protonix Iv IVPUSH 40 mg BID ALANNA Administration Prednisone 5 mg 12/30/18 10:00 01/01/19 10:10 Deltasone - PO 5 mg DAILY ALANNA Administration Valsartan 320 mg 12/30/18 10:00 01/01/19 10:10 Diovan - PO 320 mg DAILY ALANNA Administration Home Medications Medication Instructions Recorded Amlodipine Besylate [Norvasc -] 10 mg PO DAILY 10/13/18 Clopidogrel Bisulfate [Plavix] 75 mg PO DAILY 10/13/18 Metoprolol Succinate [Toprol Xl] 50 mg PO DAILY 10/13/18 Valsartan 320 mg PO DAILY 10/13/18 Gabapentin [Neurontin -] 100 mg PO HS capsule 10/21/18 Atorvastatin Ca [Lipitor] 20 mg PO HS 12/17/18 Bethanechol Chloride 25 mg PO TID 12/22/18 predniSONE [Deltasone -] 20 mg PO DAILY #14 tablet 12/22/18 Microbiology 12/30/18 09:10 Urine - Urine Clean Catch Urine Culture - Final Contaminated: Please Repeat ASSESSMENT/PLAN: 83 yof with PMhx of Scleroderma, Atrial fibrillation, not on AC but on plavix, raynaud's phenomenon, ILD on imaging in 2012Chronic hyponatremia/SIADH, HTN, HLD , OA, recurrent stasis ulcer RLE since 02/2018 being followed at wound care ( With Dr. Hernández and Dr. Austin), recent admissions to [facility] in 09/2018 with cellulitis/HCAP, then 11/2018 with weakness suspected from hypovolumia/ steroid induced myopathy readmitted with near syncope after straining on toilet and found pos FOBT. 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 EGD with severe esophagitis. PPI BID Cardiology input appreciated. Currently in NSR with PACs, plan to dc plavix as per communication by Dr. Serrato with Dr. Girard. Soft BP with intermittent dizziness. Encourage oral intake. Patient counseled on avoiding suddent postural changes. Multiple anti hypertensives. Will d/c amlodipine and continue metoprolol/ valsartan with home BP monitoring. 2D echo/Carotid duplex noted. ID input noted, monitor off abx, suspect asymptomatic bacteruria. ESR/CRP noted however non specific in the setting of known rheumatological disease. WBC high, unclear etiology, MRI right hand. Dr. Barker input if concerns. Prednisone 5 mg daily, will stop on dc per rheumatology recs on recent admit and now with severe esophagitis. Continue statin. PT eval noted, home PT with VNS. DVTPPX SCDs Dispo d/c in 24 hours pending MRI hand if no new concerns. Plan discussed with patient and nursing, all questions answered. Visit type - Emergency Visit Emergency Visit: Yes ED Registration Date: 12/30/18 Care time: The patient presented to the Emergency Department on the above date and was hospitalized for further evaluation of their emergent condition. - New Patient This patient is new to me today: No - Critical Care Critical Care patient: No - Discharge Referral Referred to [facility] Med [facility] No
[2019-01-02] MEDS ORDERED: LORazepam 2 MG/ML SDV VIAL IVPUSH ONE (10:30)
[2019-01-02 12:19] LABS: PLATELET COUNT 268 K/MM3 (134-434)
--- NOTE | 2019-01-02 17:19 | DS ---
Physical Exam: SUBJECTIVE: Patient seen and examined OBJECTIVE: Vital Signs Period Temp Pulse Resp BP Sys/Stewart Pulse Ox Last 24 Hr 97.6 F-98.3 F 57-100 18-20 99-139/45-85 98 Intake & Output 12/30/18 12/31/18 01/01/19 01/02/19 23:59 23:59 23:59 23:59 Intake Total 2285 3450 097 2468 Balance 2285 7962 011 1677 Weight 106 lb 9.6 oz 106 lb PHYSICAL EXAM General: sitting in chair in no acute distress Chest: bibasilar fine rales (chronic) Abdomen:soft, NT, ND, pos bowel sounds Extremities: right thumb scab with excoriation, no erythema/swelling or tenderness noted, no discharge Neck: soft, supple, no JVD CVS:S1S2 irregular (telemetry NSR with PACs) LABS Laboratory Results - last 24 hr 01/02/19 01/02/19 06:20 06:20 WBC 14.8 H RBC 2.83 L Hgb 8.7 L Hct 26.1 L MCV 92.2 MCH 30.8 MCHC 33.4 RDW 17.3 H Plt Count 268 MPV 8.2 Sodium 137 Potassium 4.2 Chloride 106 Carbon Dioxide 23 Anion Gap 8 BUN 14 Creatinine 0.9 Est GFR (CKD-EPI)AfAm 68.05 Est GFR (CKD-EPI)NonAf 58.71 Random Glucose 93 Calcium 8.4 L Phosphorus 2.7 Magnesium 1.7 L Total Bilirubin 0.4 AST 8 L ALT 13 Alkaline Phosphatase 54 Total Protein 6.1 L Albumin 2.7 L Carotid Duplex: 60-79% stenosis bilaterally MRI brain; The exam is somewhat limited due to drop off of signal due to difficulty in positioning and poor fat suppression on the fat-suppressed T1 and T2-weighted images. The area of clinical concern over the region of the ulnar aspect aspect of the thumb interphalangeal joint was marked by an external marker. This exam is correlated with the previous x-rays of the right hand of the right thumb of 2018. As seen on the previous x-rays of the thumb there are severe osteoarthritic changes of the interphalangeal joint with marked subchondral cystic changes and large osteophytes. No definite open wound is visualized. There is subcutaneous soft tissue edema of the thumb especially at the level of the mid to distal proximal phalanx involving the dorsal radial soft tissues. There is mild fluid signal along the dorsal aspect of the thumb interphalangeal joint. No definite bone marrow edema is seen along the ulnar aspect of the thumb distal proximal phalanx. There are cystic changes which are likely related to the degenerative change. Impression: 1. 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 2. Subcutaneous soft tissue edema of the thumb especially at the level of the mid to distal proximal phalanx involving the dorsal radial soft tissues and mild fluid along the dorsal aspect of the thumb interphalangeal joint. 3. Subchondral cystic changes which are likely related to degenerative change and no definite osteomyelitis is seen. If clinical symptoms persist a short-term follow-up MRI could be obtained. HOSPITAL COURSE: Date of Admission:12/30/18 Date of Discharge: 01/02/19 Minutes to complete discharge: 40 Discharge Summary Reason For Visit: PRE SYNCOPE Current Active Problems APC (atrial premature contractions) (Acute) Allergy to multiple antibiotics (Acute) Anemia (Acute) Asymptomatic bacteriuria (Acute) Finger lesion (Acute) GI bleed (Acute) Lightheadedness (Acute) Near syncope (Acute) Raynauds disease (Acute) Scleroderma (Acute) Severe protein-calorie malnutrition (Acute) UTI (urinary tract infection) (Acute) Hospital Course: 83 yof with PMhx of Scleroderma, Atrial fibrillation, not on AC but on plavix, raynaud's phenomenon, ILD on imaging in 2012Chronic hyponatremia/SIADH, HTN, HLD , OA, recurrent stasis ulcer RLE since 02/2018 being followed at wound care ( With Dr. Hernández and Dr. Austin), recent admissions to [facility] in 09/2018 with cellulitis/HCAP, then 11/2018 with weakness suspected from hypovolumia/ steroid induced myopathy readmitted with near syncope after straining on toilet and found pos FOBT. She was placed on IV hydration with improvement in her symptoms. Her amlodipine is discontinued. Gastroenterology was consulted and she had EGD showing severe distal esophagitis. She was placed on protonix 40 mg twice daily with plan for repeat EGD in 8-12 weeks. She was advised addressing residential AC/anti-platelet agents given her high risk of bleed. Cardiology was consulted with Dr. Serrato, she was noted in NSR with PACs and after discussion with Dr. Girard, plan was to discontinue her plavix. She was again noted with asymptomatic bacteruria, infectious disease was consulted and was advised to monitor off antibiotics. She had MRI right hand with results above. Findings were discussed with infectious disease and she was advised no additional antibiotics and referral to [facility] ([facility]) in case further concerns or need for intervention noted in the future. She was noted with intermittent leucocytosis, with no focal signs/symptoms concerning for infection. She will need monitoring of the same outpatient. Her prednisone is currently at 5 mg daily and advised taper to off over next 3 days. She was seen by physical therapy. Given recurrent hospital admissions and overall limited function status from chronic medical condition, inpatient rehab was offered but patient adamantly declined the same. She will be discharged home with services and family supervision. - Condition: Stable - Instructions Diet, Activity, Other Instructions: You were admitted with weakness and dizziness. You were placed on hydration. Your stool test was positive for blood, you were seen by soil field technician and had EGD (endoscopy) that showed severe esophagitis and are started on acid reflux medication protonix 40 mg twice daily. You were seen by your miter grinder operator Dr. Serrato and your plavix has been stopped You had MRI of your right thumb that showed severe osteoarthritic changes and some fluid. Our infectious disease specialist has recommended that you follow up with [facility] ([facility] in [place] if any new concerns or absolute need for intervention noted. MEDICATIONS: Stop your plavix Stop your amlodipine. Start new medication protonix 40 mg twice daily for 2 weeks, then as directed by your doctor. Prednisone 5 mg daily. can be stopped in 3 days if no concerns. However, you can discuss with Dr. Elam about further recommendations. Continue other medications as before. INSTRUCTIONS: Advise to maintain adequate hydration. Avoid sudden changes in position. Protonix 40 mg twice daily for 2 weeks, then as directed. Ongoing home physical therapy and assistance/supervision with activities. Keep head end of bed elevated. Small meals at frequent intervals. Avoid eating 2 -3 hours before going to bed. Avoid alcohol, NSAIDs such as motrin, ibuprofen etc. and minimize caffeine intake. FOLLOW UP: Follow up EGD (Endoscopy) in 8-12 weeks. Follow up with PCP in 1 week Follow up with Dr. Elam in 1 week In future if any concerns with right thumb, increased swelling, redness, pain or an absolute need for intervention, our Infectious disease specialist recommends that you follow up with [facility] in [place]. Blood count CBC in 1 week, and if persistently elevated, please discuss with your doctor for referral to a lineman a class. If you notice any new fevers, chills, worsening breathing or any new concerns, please call 911 or come to ED> Referrals: Low Elam MD [Staff Physician] - Tk Serrato MD [Staff Physician] - Enmanuel Girard MD [Primary Care Provider] - Disposition: VNS/HOME HEALTH CARE - Home Medications Comprehensive Discharge Medication List: Ambulatory Orders Metoprolol Succinate [Toprol Xl] 50 mg PO DAILY 10/13/18 Valsartan 320 mg PO DAILY 10/13/18 Gabapentin [Neurontin -] 100 mg PO HS capsule 10/21/18 Atorvastatin Ca [Lipitor] 20 mg PO HS 12/17/18 Bethanechol Chloride 25 mg PO TID 12/22/18 Pantoprazole Sodium [Protonix] 40 mg PO BID #28 tablet. 01/02/19 predniSONE [Deltasone -] 5 mg PO DAILY #3 tablet 01/02/19 This patient is new to me today: No Emergency Visit: Yes ED Registration Date: 12/30/18 Care time: The patient presented to the Emergency Department on the above date and was hospitalized for further evaluation of their emergent condition. Critical Care patient: No - Discharge Referral Referred to [facility] Med P.C.: No
--- NOTE | 2019-01-02 17:52 | PN ---
Progress Note, Physician Chief Complaint: Pt alert; sitting up; anxious, and not sure if she should go home or to a rehab facility. 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 She notes her nurse has noticed her stool has been black for the past week, which she believes is related to taking iron daily. Today, patient notes she began feeling lightheaded , "like she was going to pass out," upon getting up and trying to go to the bathroom 2.5 hours ago (she ambulates with a walker at baseline). She reports immediately sitting down as she thought she was going to fall and her symptoms self-resolved after 15 minutes. As per patients daughter, she notes the patient has had symptoms similar to this before when she has had an UTI. Patient endorses mild chills, diaphoresis, and generalized weakness while in the ED. She is currently on a tapered dose of Prednisone for her Raynaud's but denies currently being on antibiotics for last UTI. Pt denies any dysarthria, headache, neck pain, diplopia, numbness/tingling/weakness, cp, back pain. The patient denies shortness of breath, and headache. Denies fever, nausea, vomit, diarrhea and constipation. Denies dysuria, frequency, urgency and hematuria. Allergies: Aspirin, cephalexin, ciprofloxacin, penicillins, quinolones Past surgical history: appendectomy, abdominal surgery, orthopedic surgery Social history: No reported PCP: Dr. Enmanuel Girard - Current Medication List Current Medications: Active Medications Atorvastatin Calcium (Lipitor -) 20 mg PO HS [facility]1983 Last Admin: 01/01/19 21:46 Dose: 20 mg Gabapentin (Neurontin -) 100 mg PO HS [facility] Last Admin: 01/01/19 21:46 Dose: 100 mg Metoprolol Succinate (Toprol Xl -) 50 mg PO DAILY [facility] Last Admin: 01/02/19 10:21 Dose: 50 mg Pantoprazole Sodium (Protonix Iv) 40 mg IVPUSH BID [facility] Last Admin: 01/02/19 10:22 Dose: 40 mg Prednisone (Deltasone -) 5 mg PO DAILY [facility] Last Admin: 01/02/19 10:21 Dose: 5 mg Valsartan (Diovan -) 320 mg PO DAILY [facility] Last Admin: 01/02/19 10:21 Dose: 320 mg - Objective Vital Signs: Vital Signs Temperature 98.3 F 01/02/19 14:00 Pulse Rate 98 H 01/02/19 14:00 Respiratory Rate 18 01/02/19 14:00 Blood Pressure 132/85 01/02/19 14:00 O2 Sat by Pulse Oximetry (%) 98 01/02/19 10:00 Constitutional: Yes: Anxious, Thin Eyes: Yes: WNL HENT: Yes: WNL Neck: Yes: WNL Cardiovascular: Yes: S1, S2 Respiratory: Yes: Diminished, Poor Air Entry, Tachypnea Breast(s): Yes: WNL Musculoskeletal: Yes: Joint Stiffness, Joint Swelling, Muscle Weakness Extremities: Yes: Cold (especially hands, which are deformed, blanched, very weak, swollen, particularly right thumb), Deformity, Pallor Peripheral Pulses WNL: No Peripheral Pulses: Left Doralis Pedis: 1+, Right Dorsalis Pedis: 1+ Integumentary: Yes: Other (see "Estremities") Neurological: Yes: Alert, Oriented, Weakness Psychiatric: Yes: Alert, Oriented, Other (anxiety/depression) Labs: CBC, BMP 01/02/19 06:20 01/02/19 06:20 Abnormal Lab Results 01/02/19 01/02/19 01/03/19 06:20 06:20 06:15 WBC 14.8 H RBC 2.83 L Hgb 8.7 L Hct 26.1 L RDW 17.3 H ABG pH 7.48 H ABG pCO2 at Pt Temp 23.4 L ABG pO2 at Pt Temp 39.3 L* ABG HCO3 17.2 L ABG O2 Sat (Measured) 72.1 L ABG O2 Content 8.3 L* ABG Base Excess -5.2 L Calcium 8.4 L Magnesium 1.7 L AST 8 L Total Protein 6.1 L Albumin 2.7 L Problem List - Problems (1) APC (atrial premature contractions) Assessment/Plan: Chart reviewed. Previous EKGs dating to 2011 reviewed: no evidence of atrial fibrillation (even with one EKG "computer reading" of AF that, when perused, was actually NSR with APCs). GI workup noted: pt is at elevated risk for GI bleed. In addition, hx of hyponatremia, multiple falls, and now with lightheadedness. No hx CAD. Discussed with Ms. Dillon, Dr. Enmanuel Girard (PMD) and Dr. Tena. no anticoagulant is needed, and clopidgrel will be stopped. Telemetry: NSR: frequent APCs. Recommend gradually discontinuing metoprolol (scleroderma; Raynaud's). Code(s): I49.1 - ATRIAL PREMATURE DEPOLARIZATION (2) Anemia Code(s): D64.9 - ANEMIA, UNSPECIFIED (3) Finger lesion Assessment/Plan: 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 (Any potential therapy should take into consideration pt's scleroderma). Code(s): L98.9 - DISORDER OF THE SKIN AND SUBCUTANEOUS TISSUE, UNSPECIFIED (4) GI bleed Code(s): K92.2 - GASTROINTESTINAL HEMORRHAGE, UNSPECIFIED (5) Lightheadedness Assessment/Plan: orthostatic VS maintain hydration. F/u electrolytes. Code(s): R42 - DIZZINESS AND GIDDINESS (6) Failure to thrive Code(s): [id number] - (7) HLD (hyperlipidemia) Code(s): E78.5 - HYPERLIPIDEMIA, UNSPECIFIED (8) HTN (hypertension) Assessment/Plan: on valsartan. On metoprolol (consider changing due to peripheral abnormalities related to scleroderma, Rayaud's). Code(s): I10 - ESSENTIAL (PRIMARY) HYPERTENSION (9) Pleural effusion Code(s): J90 - PLEURAL EFFUSION, NOT ELSEWHERE CLASSIFIED (10) Scleroderma Assessment/Plan: CREST syndrome. Recommend discontinuation of metoprolol (scleroderma; Raynaud's). Pt is depressed because "they can't do anything about it". 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 Code(s): F32.9 - MAJOR DEPRESSIVE DISORDER, SINGLE EPISODE, UNSPECIFIED (14) Hypomagnesemia Assessment/Plan: replete, and keep level 2-2.4. Keep K+ 4-4.5. Code(s): E83.42 - HYPOMAGNESEMIA (15) Chronic interstitial lung disease Assessment/Plan: f/u with power system dispatcher. Code(s): J84.9 - INTERSTITIAL PULMONARY DISEASE, UNSPECIFIED
[2019-01-02] MEDS ORDERED: MAGNESIUM SULF 50% (8.12 MEQ/2 ML-1 GM VIAL) IVPB ONE (18:15)
[2019-01-02] MEDS: GABAPENTIN 100 MG CAPSULE (FP) PO SCH (21:16)
[2019-01-02] MEDS: ATORVASTATIN CA 20 MG TABLET (FP) PO SCH (21:16)
[2019-01-03] MEDS ORDERED: ALBUTEROL SO4 0.083% IH SOL 2.5 MG/3 ML VIAL.NEB. NEB ONE (00:20)
[2019-01-03] MEDS ORDERED: ONDANSETRON 4 MG/2 ML VIAL IVPUSH ONE (00:20)
[2019-01-03] MEDS ORDERED: PT OWN MED DRAWER 7, Y5N ONE ×3 (00:52→17:37)
[2019-01-03] MEDS ORDERED: ALBUTEROL SO4 2.5/IPRATROPIUM 0.5 INH SOL 3 ML VIAL.NEB. NEB ONE (06:01)
[2019-01-03] MEDS ORDERED: FUROSEMIDE 40 MG/4 ML INJECTABLE VIAL IVPUSH ONE ×2 (06:03→23:32)
--- NOTE | 2019-01-03 06:05 | HOSP ---
Subjective - Review of Symptoms Subjective: Called to assess patient for SOB, lethargy and possible rhythm change on tele. Patient having sinus rhythm w/ pacs throughout admission. On arrival, patient lethargic but easily arousable to voice. Limited ability to follow commands. Per nursing staff, this is different from her baseline. crackles noted at the bases b/l which were not present earlier in the day per nursing staff. BP w/ systolic in the 90's, but patient has been running low throughout her admission. HR in the 90's. unable to obtain peripheral pulse oximetry despite trying mulitple sites. no overt rhythm changes noted on tele. EKG ordered; no major rhythm change seen compared to previous EKGs. CXR ordered, showed increased congestion by my read; ordered 40mg lasix IV x1 ABG ordered; shows respiratory alkalosis w/ PaO2 39.3 and calculated O2 sat 72. Called nurse to place patient on 50% venturi mask. Will sign out above events to incoming day team for further assessment and management. Physical Examination Vital Signs: Vital Signs Temperature 98.0 F 01/03/19 01:53 Pulse Rate 98 H 01/03/19 01:53 Respiratory Rate 22 H 01/03/19 01:53 Blood Pressure 101/45 L 01/03/19 01:53 O2 Sat by Pulse Oximetry (%) 97 01/02/19 21:00 Cardiovascular: Yes: Regular Rate and Rhythm, S1, S2. No: Gallop, Murmur, Rub Respiratory: Yes: Regular, Other (crackles at the bases) Gastrointestinal: Yes: Normal Bowel Sounds, Soft. No: Tenderness Edema: No Labs: CBC, BMP 01/02/19 06:20 01/02/19 06:20 Visit type - Emergency Visit Emergency Visit: Yes ED Registration Date: 12/30/18 Care time: The patient presented to the Emergency Department on the above date and was hospitalized for further evaluation of their emergent condition. - New Patient This patient is new to me today: Yes Date on this admission: 01/03/19 - Critical Care Critical Care patient: No
[2019-01-03 06:25] LABS: ARTERIAL BLD GAS O2 SATURATION 72.1 % (95-98); ARTERIAL BLOOD GAS BASE EXCESS -5.2 meq/l (-2-2); ARTERIAL BLOOD GAS pH 7.48 (7.35-7.45)
[2019-01-03 06:26] LABS: ALLENS TEST POSITIVE; ARTERIAL BLOOD GAS PCO2 23.4 mmHg (35-45)
[2019-01-03 06:27] LABS: ARTERIAL BLOOD GAS PO2 39.3 mmHg (80-105)
[2019-01-03 07:11] LABS: BASO % 0.1 % (0-2.0); HEMATOCRIT 23.7 % (32.4-45.2); HEMOGLOBIN 7.7 GM/dL (10.7-15.3); LYMPH % 11.4 % (8-40); MCH 30.7 pg (25.7-33.7); MCHC 32.3 g/dl (32.0-36.0); MEAN PLT VOLUME 8.2 fl (7.5-11.1); MONO % 6.8 % (3.8-10.2); NEUT % 81.7 % (42.8-82.8); RDW 17.1 % (11.6-15.6); WHITE BLOOD COUNT 13.7 K/mm3 (4.0-10.0)
[2019-01-03 08:29] LABS: BLOOD UREA NITROGEN 21.5 mg/dL (7-18); CALCIUM 7.9 mg/dL (8.5-10.1); CREATININE 1.1 mg/dL (0.55-1.3); N-TERMINAL BNP 13947.9 pg/ml (5-450); PHOSPHOROUS 3.7 mg/dL (2.5-4.9); POTASSIUM 4.6 mmol/L (3.5-5.1)
--- NOTE | 2019-01-03 08:59 | PN ---
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 She notes her nurse has noticed her stool has been black for the past week, which she believes is related to taking iron daily. Today, patient notes she began feeling lightheaded , "like she was going to pass out," upon getting up and trying to go to the bathroom 2.5 hours ago (she ambulates with a walker at baseline). She reports immediately sitting down as she thought she was going to fall and her symptoms self-resolved after 15 minutes. As per patients daughter, she notes the patient has had symptoms similar to this before when she has had an UTI. Patient endorses mild chills, diaphoresis, and generalized weakness while in the ED. She is currently on a tapered dose of Prednisone for her Raynaud's but denies currently being on antibiotics for last UTI. Pt denies any dysarthria, headache, neck pain, diplopia, numbness/tingling/weakness, cp, back pain. The patient denies shortness of breath, and headache. Denies fever, nausea, vomit, diarrhea and constipation. Denies dysuria, frequency, urgency and hematuria. Allergies: Aspirin, cephalexin, ciprofloxacin, penicillins, quinolones Past surgical history: appendectomy, abdominal surgery, orthopedic surgery Social history: No reported PCP: Dr. Enmanuel Girard - Current Medication List Current Medications: Active Medications Atorvastatin Calcium (Lipitor -) [address] [facility] Last Admin: 01/02/19 21:16 Dose: 20 mg Gabapentin (Neurontin -) [address] [facility] Last Admin: 01/02/19 21:16 Dose: 100 mg Metoprolol Succinate (Toprol Xl -) 50 mg PO DAILY [facility] Last Admin: 01/02/19 10:21 Dose: 50 mg Pantoprazole Sodium (Protonix Iv) 40 mg IVPUSH BID [facility] Last Admin: 01/02/19 21:18 Dose: 40 mg Prednisone (Deltasone -) 5 mg PO DAILY [facility] Last Admin: 01/02/19 10:21 Dose: 5 mg Valsartan (Diovan -) 320 mg PO DAILY [facility] Last Admin: 01/02/19 10:21 Dose: 320 mg - Objective Vital Signs: Vital Signs Temperature 98.0 F 01/03/19 06:12 Pulse Rate 91 H 01/03/19 06:12 Respiratory Rate 20 01/03/19 06:12 Blood Pressure 95/44 L 01/03/19 06:12 O2 Sat by Pulse Oximetry (%) 97 01/02/19 21:00 Eyes: Yes: WNL, Conjunctiva Clear, EOM Intact HENT: Yes: WNL, Atraumatic, Normocephalic Neck: Yes: WNL, Supple, Trachea Midline Cardiovascular: Yes: WNL, Regular Rate and Rhythm Respiratory: Yes: WNL, Regular, CTA Bilaterally Gastrointestinal: Yes: WNL, Normal Bowel Sounds Genitourinary: Yes: WNL Musculoskeletal: Yes: WNL Extremities: Yes: WNL Edema: No Integumentary: Yes: WNL Neurological: Yes: Babinski negative ...Motor Strength: WNL Psychiatric: Yes: WNL Labs: CBC, BMP 01/03/19 05:30 01/03/19 05:30 Assessment/Plan Problems (1) APC (atrial premature contractions) Assessment/Plan: Chart reviewed. Previous EKGs dating to 2011 reviewed: no evidence of atrial fibrillation (even with one EKG "computer reading" of AF that, when perused, was actually NSR with APCs). GI workup noted: pt is at elevated risk for GI bleed. In addition, hx of hyponatremia, multiple falls, and now with lightheadedness. No hx CAD. Discussed with Ms. Dillon, Dr. Enmanuel Girard (PMD) and Dr. Tena. no anticoagulant is needed, and clopidgrel will be stopped. Telemetry: NSR: frequent APCs. Recommend gradually discontinuing metoprolol (scleroderma; Raynaud's). Code(s): I49.1 - ATRIAL PREMATURE DEPOLARIZATION (2) Anemia Code(s): D64.9 - ANEMIA, UNSPECIFIED (3) Finger lesion Assessment/Plan: 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 (Any potential therapy should take into consideration pt's scleroderma). Code(s): L98.9 - DISORDER OF THE SKIN AND SUBCUTANEOUS TISSUE, UNSPECIFIED (4) GI bleed Code(s): K92.2 - GASTROINTESTINAL HEMORRHAGE, UNSPECIFIED (5) Lightheadedness Assessment/Plan: orthostatic VS maintain hydration. F/u electrolytes. Code(s): R42 - DIZZINESS AND GIDDINESS (6) Failure to thrive Code(s): [id number] - (7) HLD (hyperlipidemia) Code(s): E78.5 - HYPERLIPIDEMIA, UNSPECIFIED (8) HTN (hypertension) Assessment/Plan: on valsartan. On metoprolol (consider changing due to peripheral abnormalities related to scleroderma, Rayaud's). Code(s): I10 - ESSENTIAL (PRIMARY) HYPERTENSION (9) Pleural effusion Code(s): J90 - PLEURAL EFFUSION, NOT ELSEWHERE CLASSIFIED (10) Scleroderma Assessment/Plan: CREST syndrome. Recommend discontinuation of metoprolol (scleroderma; Raynaud's). Pt is depressed because "they can't do anything about it". 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 Code(s): F32.9 - MAJOR DEPRESSIVE DISORDER, SINGLE EPISODE, UNSPECIFIED (14) Hypomagnesemia Assessment/Plan: replete, and keep level 2-2.4. Keep K+ 4-4.5. Code(s): E83.42 - HYPOMAGNESEMIA (15) Chronic interstitial lung disease Assessment/Plan: f/u with poolroom table attendant. Code(s): J84.9 - INTERSTITIAL PULMONARY DISEASE, UNSPECIFIED
--- NOTE | 2019-01-03 09:54 | PN ---
Physical Exam: SUBJECTIVE: Patient seen and examined, sleeping but arousable, responds to questions, denies any pain or dyspnea, further exam limited. OBJECTIVE: Vital Signs Period Temp Pulse Resp BP Sys/Stewart Pulse Ox Last 24 Hr 98 F-98.3 F 91-100 18-22 95-132/44-85 97-98 Intake & Output 12/31/18 01/01/19 01/02/19 01/03/19 23:59 23:59 23:59 23:59 Intake Total 0394 222 6611 Balance 3839 358 0388 Weight 106 lb GENERAL: sleepy but arousable, on 50% ventimask Neck: soft, supple Chest: bibasilar fine rales, L>R Abdomen:Soft, NT, nD Extremities: 1+ pedal pitting edema with chronic wounds and skin discoloration, right thumb swelling and excoriation, no swelling erythema or discharge CVS:S1S2 irregular Telemetry: NSR with PVCs Laboratory Results - last 24 hr 01/02/19 01/03/19 01/03/19 06:20 05:30 05:30 WBC 13.7 H RBC 2.50 L Hgb 7.7 L Hct 23.7 L MCV 95.0 MCH 30.7 MCHC 32.3 RDW 17.1 H Plt Count 268 MPV 8.2 Absolute Neuts (auto) 11.2 H Neutrophils % 81.7 Lymphocytes % 11.4 D Monocytes % 6.8 Eosinophils % 0.0 D Basophils % 0.1 Nucleated RBC % 0 Puncture Site ABG pH ABG pCO2 at Pt Temp ABG pO2 at Pt Temp ABG HCO3 ABG O2 Sat (Measured) ABG O2 Content ABG Base Excess Erik Test O2 Delivery Device Oxygen Flow Rate PEEP Sodium 136 Potassium 4.6 Chloride 105 Carbon Dioxide 17 L Anion Gap 13 BUN 21.5 H Creatinine 1.1 Est GFR (CKD-EPI)AfAm 53.39 Est GFR (CKD-EPI)NonAf 46.07 Random Glucose 117 H Calcium 7.9 L Phosphorus 3.7 Magnesium 2.0 B-Natriuretic Peptide 82752.9 H 01/03/19 06:15 WBC RBC Hgb Hct MCV MCH MCHC RDW Plt Count MPV Absolute Neuts (auto) Neutrophils % Lymphocytes % Monocytes % Eosinophils % Basophils % Nucleated RBC % Puncture Site Right radial ABG pH 7.48 H ABG pCO2 at Pt Temp 23.4 L ABG pO2 at Pt Temp 39.3 L* ABG HCO3 17.2 L ABG O2 Sat (Measured) 72.1 L ABG O2 Content 8.3 L* ABG Base Excess -5.2 L Erik Test Positive O2 Delivery Device Room air Oxygen Flow Rate No PEEP 0.0 Sodium Potassium Chloride Carbon Dioxide Anion Gap BUN Creatinine Est GFR (CKD-EPI)AfAm Est GFR (CKD-EPI)NonAf Random Glucose Calcium Phosphorus Magnesium B-Natriuretic Peptide Active Medications Generic Name Dose Route Start Last Admin Trade Name Freq PRN Reason Stop Dose Admin Atorvastatin Calcium 20 mg 12/29/18 22:00 01/02/19 21:16 Lipitor - PO 20 mg HS ALANNA Administration Furosemide 20 mg 01/03/19 14:00 Lasix Injection - IVPUSH BID@0600,1400 ALANNA Gabapentin 100 mg 12/29/18 22:00 01/02/19 21:16 Neurontin - PO 100 mg HS ALANNA Administration Metoprolol Succinate 50 mg 12/30/18 10:00 01/02/19 10:21 Toprol Xl - PO 50 mg DAILY ALANNA Administration Pantoprazole Sodium 40 mg 01/01/19 10:15 01/02/19 21:18 Protonix Iv IVPUSH 40 mg BID ALANNA Administration Prednisone 5 mg 12/30/18 10:00 01/02/19 10:21 Deltasone - PO 5 mg DAILY ALANNA Administration Valsartan 320 mg 12/30/18 10:00 01/02/19 10:21 Diovan - PO 320 mg DAILY ALANNA Administration CXR results reviewed EKG NSR with PACs ASSESSMENT/PLAN: 83 yof with PMhx of Scleroderma, Atrial fibrillation, not on AC but on plavix, raynaud's phenomenon, ILD on imaging in 2012Chronic hyponatremia/SIADH, HTN, HLD , OA, recurrent stasis ulcer RLE since 02/2018 being followed at wound care ( With Dr. Hernández and Dr. Austin), recent admissions to [facility] in 09/2018 with cellulitis/HCAP, then 11/2018 with weakness suspected from hypovolumia/ steroid induced myopathy readmitted with near syncope after straining on toilet and found pos FOBT. 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 Off IVF currently, s/p lasix [address] on 20 mg IV BID with daily weights and strict I/Os. Taper oxygen as tolerated. Amlodipine d/dionte. Will hold valsartan for today given soft BP and need for diuresis. Continue metoprolol as hemodynamics tolerate. Cardiology input noted. Currently in NSR with PACs, Plavix d/dionte as per communication by Dr. Serrato with Dr. Girard. Check trop. 2D echo/Carotid duplex noted. GI input noted. EGD with severe esophagitis. PPI BID Hb drifting down, Repeat later today, repeat FOBT, transfuse prn. Address possible colonoscopy with GI once active respiratory concerns improved. ID input noted, monitor off abx, suspect asymptomatic bacteruria. ESR/CRP noted however non specific in the setting of known rheumatological disease. WBC high, unclear etiology, MRI right hand noted, discussed with Dr. Stoll, hold off on antibiotics, recommend follow up at [facility] ([facility]) in future if concerns. Prednisone 5 mg daily, will taper to off over next 2-3 days. Outpatient rheumatology follow up. Continue statin. Patient noted weak and with limited ambulation, extensive discussion held with patient and daughter Nicky yesterday. Patient now agrees to SNF. PLan for SNF once medical symptoms improve. DVTPPX SCDs Dispo d/c in 24 hours pending MRI hand if no new concerns. Plan discussed with patient and nursing, all questions answered. Visit type - Emergency Visit Emergency Visit: Yes ED Registration Date: 12/30/18 Care time: The patient presented to the Emergency Department on the above date and was hospitalized for further evaluation of their emergent condition. - New Patient This patient is new to me today: No - Critical Care Critical Care patient: No - Discharge Referral Referred to [facility] Med P.C.: No
[2019-01-03] MEDS: PANTOPRAZOLE SODIUM 40 MG VIAL IVPUSH SCH ×2 (11:00→21:31)
[2019-01-03] MEDS: predniSONE 5 MG TABLET (UD) PO SCH (11:00)
[2019-01-03 11:55] LABS: HEMATOCRIT 19.9 % (32.4-45.2); MCH 31.3 pg (25.7-33.7); MCHC 34.5 g/dl (32.0-36.0); MEAN CELL VOLUME 90.9 fl (80-96); MEAN PLT VOLUME 8.2 fl (7.5-11.1); RBC 2.19 M/mm3 (3.60-5.2); RDW 16.9 % (11.6-15.6); WHITE BLOOD COUNT 9.9 K/mm3 (4.0-10.0)
[2019-01-03 12:11] LABS: HEMOGLOBIN 6.9 GM/dL (10.7-15.3)
[2019-01-03] MEDS ORDERED: FUROSEMIDE 40 MG/4 ML INJECTABLE VIAL IVPUSH SCH ×2 (12:37→14:00)
[2019-01-03 12:59] LABS: ARTERIAL BLD GAS O2 SATURATION 99.6 % (95-98); ARTERIAL BLOOD GAS PCO2 30.1 mmHg (35-45); ARTERIAL BLOOD GAS PO2 161 mmHg (80-105); ARTERIAL BLOOD GAS pH 7.46 (7.35-7.45)
[2019-01-03 13:05] LABS: ALLENS TEST POSITIVE
--- NOTE | 2019-01-03 13:09 | PN.GI ---
GI Progress Note Subjective: CALLED BY DR. SUERO TO SEE PT FOR ANEMIA. PER RN NO BOWEL MOVEMENTS TODAY AND NO REPORT OF MELENA OR BRBR. FAMILY AT THE BEDSIDE CONCERNED OVER HER MENTAL STATUS / PULMONARY STATUS. - Objective Vital Signs: Vital Signs Temperature 98.0 F 01/03/19 06:12 Pulse Rate 91 H 01/03/19 06:12 Respiratory Rate 20 01/03/19 06:12 Blood Pressure 95/44 L 01/03/19 06:12 O2 Sat by Pulse Oximetry (%) 97 01/02/19 21:00 Constitutional: No Distress, Other (ON NONREBREATHER MASK) Eyes: Yes: WNL HENT: Yes: WNL Cardiovascular: Yes: WNL, Regular Rate and Rhythm Respiratory: Yes: WNL, Regular, CTA Bilaterally, Other (SOEM RALES ATTHE BASE) Gastrointestinal Inspection: Yes: WNL ...Auscultate: Yes: Normoactive Bowel Sounds Musculoskeletal: Yes: WNL Extremities: Yes: WNL Edema: No Labs: CBC, BMP 01/03/19 11:30 01/03/19 05:30 Problem List - Problems (1) Anemia Assessment/Plan: DISCUSSED CASE WITH DR. SUERO WELL THE NURSE - THERE IS NO SIGN OF AN OVERT GI BLEED AT THIS TIME. -PPI 40 MG DAILY -TRANSFUSE PRBC - NO PLAN FOR ENDOSCOPIC EVALUATION CONSIDERING HER POOR CLINICAL STATUS. - RX FOR HER AMS WELL PRESENT PULMONARY STATUS PER PRIMARY MEDICAL TEAM. Code(s): D64.9 - ANEMIA, UNSPECIFIED
--- NOTE | 2019-01-03 13:53 | CONSULT ---
Consultation: REQUESTING PROVIDER: Dr. Tena CONSULT REQUEST: We have been asked to medically evaluate this patient for lethargy, anemia, HISTORY OF PRESENT ILLNESS: 83 yo F with PMH of hyponatremia with syncope, htn, hld, Raynaud's, Scleroderma , bibems due to near syncope. At the time she felt very dizzy, denies associated flushing, palpitations, cp, nausea. She was initially admitted and given light fluid hydration for syncopal episode which was likely secondary to orthostatic hypotension. Several days into the admission, a rapid response was called and patient was having shortness of breath, crackles on lung exam, and increasing congestion on CXR. She was switched to diuresis at that time. Also of note, patient has positive stool for occult blood, had EGD in the hospital showing evere gastritis. During the hospital course, patient had a R hand xray suspicious for osteomyelitis, so MRI was ordered last night. She was given ativan for claustrophobia. She is a long-term steroid user for her scleroderma. ICU was called for altered mental status, decreasing hemoglobin in the setting of hemoccult positive blood and increasing respiratory compromise. On examination, patient is alert and oriented, she states that she has some mild shortness of breath and chest pain. Currently denies cough, fevers or chills, dysuria, nausea, vomiting, diarrhea. REVIEW OF SYSTEMS: CONSTITUTIONAL: Absent: fever, chills, diaphoresis, generalized weakness, malaise, loss of appetite, weight change HEENT: Absent: rhinorrhea, nasal congestion, throat pain, throat swelling, difficulty swallowing, mouth swelling, ear pain, eye pain, visual changes CARDIOVASCULAR: chest pain Absent: syncope, palpitations, irregular heart rate, lightheadedness, peripheral edema RESPIRATORY: shortness of breath Absent: cough, dyspnea with exertion, orthopnea, wheezing, stridor, hemoptysis GASTROINTESTINAL: Absent: abdominal pain, abdominal distension, nausea, vomiting, diarrhea, constipation, melena, hematochezia GENITOURINARY: Absent: dysuria, frequency, urgency, hesitancy, hematuria, flank pain, genital pain MUSCULOSKELETAL: Absent: myalgia, arthralgia, joint swelling, back pain, neck pain SKIN: Absent: rash, itching, pallor HEMATOLOGIC/IMMUNOLOGIC: Absent: easy bleeding, easy bruising, lymphadenopathy, frequent infections ENDOCRINE: Absent: unexplained weight gain, unexplained weight loss, heat intolerance, cold intolerance NEUROLOGIC: Absent: headache, focal weakness or paresthesias, dizziness, unsteady gait, seizure, mental status changes, bladder or bowel incontinence PSYCHIATRIC: Absent: anxiety, depression, suicidal or homicidal ideation, hallucinations. PHYSICAL EXAMINATION Vital Signs - 24 hr 01/02/19 01/02/19 01/02/19 14:00 18:00 21:00 Temperature 98.3 F 98.0 F Pulse Rate 98 H 96 H Respiratory 18 18 20 Rate Blood Pressure 132/85 123/78 O2 Sat by Pulse 97 Oximetry (%) 01/02/19 01/03/19 01/03/19 22:00 01:53 06:12 Temperature 98.0 F 98.0 F 98.0 F Pulse Rate 96 H 98 H 91 H Respiratory 18 22 H 20 Rate Blood Pressure 128/58 L 101/45 L 95/44 L O2 Sat by Pulse Oximetry (%) GENERAL: A&Ox3, mild EYES: PERRLA, EOMI ENT: Moist mucus membranes NECK: No JVD LUNGS: CTA, no wheezes HEART: RRR, no murmurs ABDOMEN: Soft, nontender, BS present MUSCULOSKELETAL: No CVA Tenderness EXTREMITIES: 2+ pulses, no edema. NEUROLOGICAL: Cranial nerves II-XII intact. Laboratory Results - last 24 hr 01/03/19 01/03/19 01/03/19 05:30 05:30 06:15 WBC 13.7 H RBC 2.50 L Hgb 7.7 L Hct 23.7 L MCV 95.0 MCH 30.7 MCHC 32.3 RDW 17.1 H MPV 8.2 Absolute Neuts (auto) 11.2 H Neutrophils % 81.7 Lymphocytes % 11.4 D Monocytes % 6.8 Eosinophils % 0.0 D Basophils % 0.1 Nucleated RBC % 0 Puncture Site Right radial ABG pH 7.48 H ABG pCO2 at Pt Temp 23.4 L ABG pO2 at Pt Temp 39.3 L* ABG HCO3 17.2 L ABG O2 Sat (Measured) 72.1 L ABG O2 Content 8.3 L* ABG Base Excess -5.2 L Erik Test Positive O2 Delivery Device Room air Oxygen Flow Rate No PEEP 0.0 Sodium 136 Potassium 4.6 Chloride 105 Carbon Dioxide 17 L Anion Gap 13 BUN 21.5 H Creatinine 1.1 Est GFR (CKD-EPI)AfAm 53.39 Est GFR (CKD-EPI)NonAf 46.07 Random Glucose 117 H Calcium 7.9 L Phosphorus 3.7 Magnesium 2.0 Troponin I 0.11 H B-Natriuretic Peptide 90442.9 H 01/03/19 01/03/19 01/03/19 11:00 11:30 12:40 WBC 9.9 RBC 2.19 L Hgb 6.9 L* Hct 19.9 L D MCV 90.9 MCH 31.3 MCHC 34.5 RDW 16.9 H MPV 8.2 Absolute Neuts (auto) Neutrophils % Lymphocytes % Monocytes % Eosinophils % Basophils % Nucleated RBC % Puncture Site Right radial ABG pH 7.46 H ABG pCO2 at Pt Temp 30.1 L ABG pO2 at Pt Temp 161 H ABG HCO3 21.1 L ABG O2 Sat (Measured) 99.6 H ABG O2 Content 9.5 L* ABG Base Excess -2.0 Erik Test Positive O2 Delivery Device Venti mask Oxygen Flow Rate 50% PEEP Sodium Potassium Chloride Carbon Dioxide Anion Gap BUN Creatinine Est GFR (CKD-EPI)AfAm Est GFR (CKD-EPI)NonAf Random Glucose Calcium Phosphorus Magnesium Troponin I 0.28 H B-Natriuretic Peptide Active Medications Generic Name Dose Route Start Last Admin Trade Name Freq PRN Reason Stop Dose Admin Atorvastatin Calcium 20 mg 12/29/18 22:00 01/02/19 21:16 Lipitor - PO 20 mg HS ALANNA Administration Furosemide 40 mg 01/03/19 14:00 Lasix Injection - IVPUSH DAILY ALANNA Methylprednisolone Sodium Succinate 40 mg 01/03/19 14:00 Solu-Medrol - IVPUSH Q8H-IV ALANNA Metoprolol Succinate 50 mg 12/30/18 10:00 01/02/19 10:21 Toprol Xl - PO 50 mg DAILY ALANNA Administration Pantoprazole Sodium 40 mg 01/01/19 10:15 01/02/19 21:18 Protonix Iv IVPUSH 40 mg BID ALANNA Administration Valsartan 320 mg 12/30/18 10:00 01/02/19 10:21 Diovan - PO 320 mg DAILY ALANNA Administration ASSESSMENT/PLAN: 83 yo F with PMH of hyponatremia with syncope, htn, hld, Raynaud's, Scleroderma , bibems due to near syncope - given fluids and diuresed, now altered and volume overloaded NEUROLOGIC -patient is alert and oriented x3, tired -new head CT appears negative -hold any benzos CARDIOVASCULAR -increased congestion on CXR with crackles on exam -will diurese with 40mg lasix now and after blood transfusion -EKG sinus rhythm with 1st degree AV block, qtc 468, had afib in the past -cards consultation -trops elevated, likely demand, continue to trend -echo PULMONARY -CXR with increasing congestion -ABG showed mild respiratory alkalosis -continue to diurese with 40mg lasix -repeat CXR in AM -venti mask saturating at 100% -monitor ventilator status -medrol 40 IV Q8H INFECTIOUS DISEASES -patient has a urinary tract infection, initially untreated due to being asymptomatic, however patient now has acute change in mental status -patient has numerous allergies to antibiotics, will dose with bactrim -ID consultation HEME/ONC -patient is anemic to 6.9, worse than prior test -FOBT positive -will transfuse 1U PRBC now -monitor H&H -diurese now and after PRBC GASTROINTESTINAL -GI evaluated patient and suggested this is not due to acute GI bleed -continue to monitor H&H RHEUMATOLOGY -patient has crest syndrome (scleroderma) -continue medrol 40q8h -MRI hand done - severe osseous changes DISPO -ICU monitoring Dispo: We will continue to follow the patient. Thank you for this consultative opportunity. Visit type - Emergency Visit Emergency Visit: No - New Patient This patient is new to me today: No - Critical Care Critical Care patient: Yes Total Critical Care Time (in minutes): 39 Critical Care Statement: The care of this patient involved high complexity decision making to prevent further life threatening deterioration of the patient 's condition and/or to evaluate & treat vital organ system(s) failure or risk of failure.
[2019-01-03] MEDS ORDERED: SULFAMETHOXAZOLE 80 MG/TRIMETHOPRIM 16 MG/ML VIAL IVPB SCH ×2 (14:00→17:19)
--- NOTE | 2019-01-03 14:04 | PN ---
Teaching Attending Note Name of Resident: Franco Pickett ATTENDING PHYSICIAN STATEMENT I saw and evaluated the patient. I reviewed the resident's note and discussed the case with the resident. I agree with the resident's findings and plan as documented. SUBJECTIVE: Pt seen and examined in the ICU. Briefly, 83yo female with h/o Scleroderma on chronic prednisone, HTN, hyperlipidemia, hyponatremia who was admitted for near syncope. Treated for dehydration with IVF. Was to be discharged last night, had a MRI done with ativan given. This AM, somnolent, lethargic but arousable and increasing shortness of breath. CXR today suggestive of pulmonary edema and bloodwork showing dropping H/H, transfered to the ICU for closer monitoring. OBJECTIVE: Vital Signs Period Temp Pulse Resp BP Sys/Stewart Pulse Ox Last 24 Hr 98.0 F-98.0 F 91-98 18-22 95-128/44-78 97 Intake & Output 12/31/18 01/01/19 01/02/19 01/03/19 23:59 23:59 23:59 23:59 Intake Total 7586 526 2146 Balance 2019 896 4218 Weight 48.081 kg Gen: lethargic but arousable Heart: RRR Lung: bilateral rales, rhonchi Abd: soft, nontender Ext: no edema CBC, BMP 01/03/19 11:30 01/03/19 05:30 Active Medications Atorvastatin Calcium (Lipitor -) 20 mg PO HS [facility] Last Admin: 01/02/19 21:16 Dose: 20 mg Furosemide (Lasix Injection -) 40 mg IVPUSH DAILY [facility] Methylprednisolone Sodium Succinate (Solu-Medrol -) 40 mg IVPUSH Q8H-IV [facility] Metoprolol Succinate (Toprol Xl -) 50 mg PO DAILY [facility] Last Admin: 01/03/19 11:00 Dose: Not Given Pantoprazole Sodium (Protonix Iv) 40 mg IVPUSH BID [facility] Last Admin: 01/03/19 11:00 Dose: 40 mg Trimethoprim/Sulfamethoxazole (Bactrim Injection -) 10 mg IVPB Q8H-IV [facility]; Protocol Valsartan (Diovan -) 320 mg PO DAILY [facility] Last Admin: 01/02/19 10:21 Dose: 320 mg ASSESSMENT AND PLAN: Altered Mental Status Acute Pulmonary Edema/Acute on Chronic Diastolic Heart Failure +Troponins likely Demand Ischemia r/o UTI Scleroderma on chronic prednisone HTN Hyperlipidemia - IV lasix - monitor urine output, creatinine - O2 to keep Spo2 >90% - aspiration precautions - transfuse PRBC - monitor H/H - inhaled bronchodilators - start empiric medrol - empiric antibiotics - f/u cultures - echocardiogram - trend cardiac enzymes - DVT prophylaxis - ICU monitoring Thank you for this consult Moose Tate MD
[2019-01-03] MEDS: methylPREDNISolone NA SUCC 40 MG/1 ML VIAL IVPUSH SCH ×3 (14:15→19:05)
[2019-01-03] MEDS: FUROSEMIDE 40 MG/4 ML INJECTABLE VIAL IVPUSH SCH (14:15)
[2019-01-03 15:14] LABS: PLATELET COUNT 173 K/MM3 (134-434)
[2019-01-03] MEDS ORDERED: SULFAMETHOXAZOLE/TRIMETHOPRIM 160 MG in DEXTROSE 5%-WATER - 250 ML IVPB SCH (15:15)
[2019-01-03 16:47] LABS: PLATELET COUNT 346 K/MM3 (134-434); PLATELET ESTIMATE ADEQUATE
--- NOTE | 2019-01-03 17:02 | EKG ---
Test Reason : Blood Pressure : / mmHG Vent. Rate : 091 BPM Atrial Rate : 091 BPM P-R Int : 182 ms QRS Dur : 086 ms QT Int : 382 ms P-R-T Axes : 071 -35 101 degrees QTc Int : 469 ms SINUS RHYTHM WITH PREMATURE ATRIAL COMPLEXES LEFT AXIS DEVIATION NONSPECIFIC ST AND T WAVE ABNORMALITY ABNORMAL ECG WHEN COMPARED WITH ECG OF 29-DEC-2018 14:51, PREMATURE VENTRICULAR COMPLEXES ARE NO LONGER PRESENT PREMATURE ATRIAL COMPLEXES ARE NOW PRESENT NONSPECIFIC T WAVE ABNORMALITY NO LONGER EVIDENT IN ANTERIOR LEADS Confirmed by JOSE YANG, ANDRADE ([id number]) on 01/03/2019 5:02:36 PM Referred By: Confirmed By:ANDRADE GARCIA MD
--- NOTE | 2019-01-03 17:02 | EKG ---
Test Reason : Blood Pressure : / mmHG Vent. Rate : 080 BPM Atrial Rate : 080 BPM P-R Int : 238 ms QRS Dur : 088 ms QT Int : 406 ms P-R-T Axes : 075 -30 124 degrees QTc Int : 468 ms SINUS RHYTHM WITH 1ST DEGREE A-V BLOCK WITH PREMATURE ATRIAL COMPLEXES LEFT AXIS DEVIATION NONSPECIFIC T WAVE ABNORMALITY ABNORMAL ECG WHEN COMPARED WITH ECG OF 03-JAN-2019 05:18, SINUS RHYTHM HAS REPLACED ATRIAL FIBRILLATION Confirmed by ANDRADE GARCIA MD ([id number]) on 01/03/2019 5:01:56 PM Referred By: Saskia MARS Confirmed By:ANDRADE GARCIA MD
[2019-01-03] MEDS: DEXTROSE 5% IVPB SCH (17:41)
[2019-01-03] MEDS: WATER IVPB SCH (17:41)
[2019-01-03] MEDS: SULFAMETHOXAZOLE IVPB SCH (17:41)
[2019-01-03] MEDS: TRIMETHOPRIM IVPB SCH (17:41)
[2019-01-03] MEDS: ATORVASTATIN CA 20 MG TABLET (FP) PO SCH (21:31)
[2019-01-04 00:12] LABS: HEMATOCRIT 26.9 % (32.4-45.2); HEMOGLOBIN 9.1 GM/dL (10.7-15.3); MCH 29.8 pg (25.7-33.7); MCHC 33.8 g/dl (32.0-36.0); MEAN CELL VOLUME 88.3 fl (80-96); RBC 3.05 M/mm3 (3.60-5.2); RDW 18.2 % (11.6-15.6); WHITE BLOOD COUNT 8.7 K/mm3 (4.0-10.0)
[2019-01-04] MEDS: methylPREDNISolone NA SUCC 40 MG/1 ML VIAL IVPUSH SCH ×3 (02:19→09:51)
[2019-01-04] MEDS: DEXTROSE 5% IVPB SCH ×3 (02:19→18:04)
[2019-01-04] MEDS: TRIMETHOPRIM IVPB SCH ×3 (02:19→18:04)
[2019-01-04] MEDS: WATER IVPB SCH ×3 (02:19→18:04)
[2019-01-04] MEDS: SULFAMETHOXAZOLE IVPB SCH ×3 (02:19→18:04)
[2019-01-04 02:38] LABS: PLATELET COUNT 246 K/MM3 (134-434)
[2019-01-04 07:06] LABS: BLOOD UREA NITROGEN 23.2 mg/dL (7-18); CREATININE 1.1 mg/dL (0.55-1.3); MAGNESIUM 1.6 mg/dL (1.8-2.4); PHOSPHOROUS 5.1 mg/dL (2.5-4.9); POTASSIUM 3.5 mmol/L (3.5-5.1)
[2019-01-04 07:33] LABS: BASO % 0.1 % (0-2.0); HEMATOCRIT 24.7 % (32.4-45.2); HEMOGLOBIN 8.7 GM/dL (10.7-15.3); LYMPH % 12.7 % (8-40); MCH 30.6 pg (25.7-33.7); MCHC 35.2 g/dl (32.0-36.0); MEAN CELL VOLUME 86.7 fl (80-96); MEAN PLT VOLUME 8.3 fl (7.5-11.1); MONO % 1.1 % (3.8-10.2); NEUT % 86.1 % (42.8-82.8); RBC 2.85 M/mm3 (3.60-5.2); RDW 18.7 % (11.6-15.6); WHITE BLOOD COUNT 7.2 K/mm3 (4.0-10.0)
--- NOTE | 2019-01-04 07:38 | PN.GI ---
GI Progress Note Subjective: PATIENTS STATES SHE IS FEELING MUCH BETTER ; NO REPORT OF MELENA OR HEMATOCHEZIA - Objective Vital Signs: Vital Signs Temperature 97.4 F L 01/04/19 02:00 Pulse Rate 105 H 01/04/19 04:00 Respiratory Rate 14 01/04/19 04:00 Blood Pressure 83/57 L 01/04/19 04:00 O2 Sat by Pulse Oximetry (%) 99 01/03/19 21:44 Constitutional: Well Nourished, No Distress, Calm Eyes: Yes: WNL HENT: Yes: WNL Neck: Yes: WNL, Supple Cardiovascular: Yes: WNL, Regular Rate and Rhythm Respiratory: Yes: WNL, Regular, CTA Bilaterally Gastrointestinal Inspection: Yes: WNL ...Auscultate: Yes: Normoactive Bowel Sounds Extremities: Yes: WNL Edema: No Labs: CBC, BMP 01/04/19 05:20 Problem List - Problems (1) Anemia Assessment/Plan: PATIENT WITH NEW ONSET ATRIAL FIBRILLATION - ANTICOAGULATION MAY BE STARTED IF CARDIOLOGY BELIEVES THE BENEFIT OF A/C OUTWEIGHS THE RISK OF POTENTIAL OOZING FROM HER ESOPHAGITIS. IDEALLY IT WOULD BE BEST TO TREAT FOR ONE TO TWO WEEKS WITH PPI PRIOR TO STARTING A/C . IF A/C IS INITIATED REC H/H Q12 AND CLOSE MONITORING FOR SIGNS GI BLEED. ADVANCE DIET TOLERATED MICU CARE Code(s): D64.9 - ANEMIA, UNSPECIFIED
--- NOTE | 2019-01-04 08:09 | PN ---
Physical Exam: SUBJECTIVE: Patient seen and examined at bedside this morning. She is more awake , and alert today. No bowel moments, bright red blood per rectum, or melena overnight. Patient denies acute complaints. She denies subjective fevers, chills, shortness of breath, chest pain, palpitations, abdominal pain, nausea, vomiting. OBJECTIVE: Vital Signs Period Temp Pulse Resp BP Sys/Stewart Pulse Ox Last 24 Hr 97.4 F-99.8 F 75-105 12-21 83-122/46-85 99-99 GENERAL: The patient is awake, alert, and fully oriented, in no acute distress. HEAD: Normocephalic, atraumatic. EYES: PERRL, extraocular movements intact, sclera anicteric, conjunctiva clear. ENT: Oropharynx clear, without erythema or exudates. Moist mucous membranes. NECK: Trachea midline. Supple without lymphadenopathy. LUNGS: Good inspiratory effort. Breath sounds equal, faint crackles auscultated bilaterally. No accessory muscle use. HEART: Regular rate and rhythm, S1, S2 without murmur, rub or gallop. ABDOMEN: Soft, nondistended, nontender to light and deep palpation x4 quadrants , no rebound tenderness, no guarding. Normoactive bowel sounds x4 quadrants. no hepatosplenomegaly, no masses. RECTAL: Good anal sphincter tone. No external or internal hemorrhoids palpated. No stool palpated within rectal vault. No lashay blood upon gloved finger. Sample sent for occult blood. EXTREMITIES: 2+ radial, dorsalis pedis pulses bilaterally. Warm, well-perfused. No lower extremity edema bilaterally. NEUROLOGICAL: Cranial nerves II through XII grossly intact. Normal speech. No gross focal deficits. PSYCH: Normal mood, normal affect upon my encounter. SKIN: Warm, dry. Laboratory Results - last 24 hr 01/03/19 01/03/19 01/03/19 05:30 05:30 11:00 WBC 13.7 H RBC 2.50 L Hgb 7.7 L Hct 23.7 L MCV 95.0 MCH 30.7 MCHC 32.3 RDW 17.1 H Plt Count 346 D MPV 8.2 Absolute Neuts (auto) 11.2 H Neutrophils % 81.7 Lymphocytes % 11.4 D Monocytes % 6.8 Eosinophils % 0.0 D Basophils % 0.1 Nucleated RBC % 0 Platelet Estimate Adequate Platelet Comment Plts scanned Puncture Site ABG pH ABG pCO2 at Pt Temp ABG pO2 at Pt Temp ABG HCO3 ABG O2 Sat (Measured) ABG O2 Content ABG Base Excess Erik Test O2 Delivery Device Oxygen Flow Rate Sodium 136 Potassium 4.6 Chloride 105 Carbon Dioxide 17 L Anion Gap 13 BUN 21.5 H Creatinine 1.1 Est GFR (CKD-EPI)AfAm 53.39 Est GFR (CKD-EPI)NonAf 46.07 Random Glucose 117 H Calcium 7.9 L Phosphorus 3.7 Magnesium 2.0 Troponin I 0.11 H 0.28 H B-Natriuretic Peptide 27427.9 H Blood Type Antibody Screen Crossmatch 01/03/19 01/03/19 01/03/19 11:30 12:40 15:50 WBC 9.9 RBC 2.19 L Hgb 6.9 L* Hct 19.9 L D MCV 90.9 MCH 31.3 MCHC 34.5 RDW 16.9 H Plt Count 173 D MPV 8.2 Absolute Neuts (auto) Neutrophils % Lymphocytes % Monocytes % Eosinophils % Basophils % Nucleated RBC % Platelet Estimate Platelet Comment Puncture Site Right radial ABG pH 7.46 H ABG pCO2 at Pt Temp 30.1 L ABG pO2 at Pt Temp 161 H ABG HCO3 21.1 L ABG O2 Sat (Measured) 99.6 H ABG O2 Content 9.5 L* ABG Base Excess -2.0 Erik Test Positive O2 Delivery Device Venti mask Oxygen Flow Rate 50% Sodium Potassium Chloride Carbon Dioxide Anion Gap BUN Creatinine Est GFR (CKD-EPI)AfAm Est GFR (CKD-EPI)NonAf Random Glucose Calcium Phosphorus Magnesium Troponin I B-Natriuretic Peptide Blood Type B NEGATIVE Antibody Screen Negative Crossmatch See Detail 01/03/19 01/03/19 01/04/19 19:05 23:55 05:20 WBC 8.7 7.2 RBC 3.05 L 2.85 L Hgb 9.1 L 8.7 L Hct 26.9 L D 24.7 L MCV 88.3 86.7 MCH 29.8 30.6 MCHC 33.8 35.2 RDW 18.2 H 18.7 H Plt Count 246 D MPV 8.0 8.3 Absolute Neuts (auto) 6.2 Neutrophils % 86.1 H Lymphocytes % 12.7 Monocytes % 1.1 L D Eosinophils % 0.0 Basophils % 0.1 Nucleated RBC % 0 Platelet Estimate Platelet Comment Puncture Site ABG pH ABG pCO2 at Pt Temp ABG pO2 at Pt Temp ABG HCO3 ABG O2 Sat (Measured) ABG O2 Content ABG Base Excess Erik Test O2 Delivery Device Oxygen Flow Rate Sodium Potassium Chloride Carbon Dioxide Anion Gap BUN Creatinine Est GFR (CKD-EPI)AfAm Est GFR (CKD-EPI)NonAf Random Glucose Calcium Phosphorus Magnesium Troponin I B-Natriuretic Peptide Blood Type B NEGATIVE Antibody Screen Crossmatch 01/04/19 05:20 WBC RBC Hgb Hct MCV MCH MCHC RDW Plt Count MPV Absolute Neuts (auto) Neutrophils % Lymphocytes % Monocytes % Eosinophils % Basophils % Nucleated RBC % Platelet Estimate Platelet Comment Puncture Site ABG pH ABG pCO2 at Pt Temp ABG pO2 at Pt Temp ABG HCO3 ABG O2 Sat (Measured) ABG O2 Content ABG Base Excess Erik Test O2 Delivery Device Oxygen Flow Rate Sodium 138 Potassium 3.5 Chloride 105 Carbon Dioxide 23 Anion Gap 10 BUN 23.2 H Creatinine 1.1 Est GFR (CKD-EPI)AfAm 53.39 Est GFR (CKD-EPI)NonAf 46.07 Random Glucose 153 H Calcium 8.0 L Phosphorus 5.1 H Magnesium 1.6 L Troponin I B-Natriuretic Peptide Blood Type Antibody Screen Crossmatch Active Medications Generic Name Dose Route Start Last Admin Trade Name Freq PRN Reason Stop Dose Admin Atorvastatin Calcium 20 mg 12/29/18 22:00 01/03/19 21:31 Lipitor - PO 20 mg HS ALANNA Administration Furosemide 40 mg 01/03/19 14:00 01/03/19 14:15 Lasix Injection - IVPUSH 40 mg DAILY ALANNA Administration Trimethoprim/Sulfamethoxazole 105 mls @ 105 mls/hr 01/03/19 18:00 01/04/19 02 :19 80 mg/ Dextrose IVPB 105 mls/hr Q8H-IV ALANNA Administration Methylprednisolone Sodium Succinate 40 mg 01/03/19 14:00 01/04/19 02:19 Solu-Medrol - IVPUSH 40 mg Q8H-IV ALANNA Administration Metoprolol Succinate 50 mg 12/30/18 10:00 01/03/19 11:00 Toprol Xl - PO Not Given DAILY ALANNA Pantoprazole Sodium 40 mg 01/01/19 10:15 01/03/19 21:31 Protonix Iv IVPUSH 40 mg BID ALANNA Administration Valsartan 320 mg 12/30/18 10:00 01/02/19 10:21 Diovan - PO 320 mg DAILY ALANNA Administration ASSESSMENT/PLAN: Patient is an 83 year old female with history of hypertension, hyperlipidemia, Sleroderma, Raynauds, hyponatremia admitted to ICU after acute metabolic encephalopathy. Neurologic -Today patient is awake, alert, fully oriented -No sedative medications overnight, or this morning. Will withhold any further sedative -Monitor closely for mental status changes Pulmonary -Chest radiograph shows worsening bilateral congestive changes -Currently saturating well on 2L nasal canula -Lasix 40mg IV daily -Discontinue Medrol Cardiac History of hypertension History of hyperlipidemia -EKG early this morning showed Afib at 108BPM. Currently rate controlled. -Cardiology (Dr. Rodas) recommendations appreciated. -Cardiac monitoring -Metoprolol 25mg PO daily -Atorvastatin 20mg PO HS Gastrointestinal -Upper endoscopy reveals Grade D ulcerative esophagitis, without active bleeding. 4-5cm hiatal hernia noted. -Gastroenterology recommendations (Dr. Hoang) appreciated. -Discussed anticoagulation with both Cardiology, and Gastroenterology. In light of Afib (questionable Afib vs. PAC in the past), and Grade D esophagitis noted upon recent upper endoscopy, will withhold chemical anticoagulation at this time. -Patient is s/p 1 unit PRBCs 01/03/2019. Monitor for signs of acute bleeding. -Stool negative for occult blood, upon my exam today. Rheumatology History of Crest syndrome (scleroderma) -Medrol discontinued. Patient had completed outpatient Prednisone taper. -MRI hand reveals severe osseous changes Infectious disease -Urinalysis suggestive of urinary tract infection -Bactrim 80mg IV Q8 hours -Infectious disease consult (Dr. Harding) appreciated Prophylaxis -Protonix 40mg IV BID -SCDs bilateral lower extremities. Disposition -Patient is medically stable for transfer to Telemetry floor. Visit type - Emergency Visit Emergency Visit: Yes ED Registration Date: 12/30/18 Care time: The patient presented to the Emergency Department on the above date and was hospitalized for further evaluation of their emergent condition. - New Patient This patient is new to me today: Yes Date on this admission: 01/04/19 - Critical Care Critical Care patient: Yes Total Critical Care Time (in minutes): 37 Critical Care Statement: The care of this patient involved high complexity decision making to prevent further life threatening deterioration of the patient 's condition and/or to evaluate & treat vital organ system(s) failure or risk of failure. - Discharge Referral Referred to [facility] No
[2019-01-04] MEDS ORDERED: MAGNESIUM OXIDE 400 MG TABLET (FP) PO ONE (08:59)
--- NOTE | 2019-01-04 09:06 | PN ---
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 She notes her nurse has noticed her stool has been black for the past week, which she believes is related to taking iron daily. Today, patient notes she began feeling lightheaded , "like she was going to pass out," upon getting up and trying to go to the bathroom 2.5 hours ago (she ambulates with a walker at baseline). She reports immediately sitting down as she thought she was going to fall and her symptoms self-resolved after 15 minutes. As per patients daughter, she notes the patient has had symptoms similar to this before when she has had an UTI. Patient endorses mild chills, diaphoresis, and generalized weakness while in the ED. She is currently on a tapered dose of Prednisone for her Raynaud's but denies currently being on antibiotics for last UTI. Pt denies any dysarthria, headache, neck pain, diplopia, numbness/tingling/weakness, cp, back pain. The patient denies shortness of breath, and headache. Denies fever, nausea, vomit, diarrhea and constipation. Denies dysuria, frequency, urgency and hematuria. Allergies: Aspirin, cephalexin, ciprofloxacin, penicillins, quinolones Past surgical history: appendectomy, abdominal surgery, orthopedic surgery Social history: No reported PCP: Dr. Enmanuel Girard Hospital course ; 83yo female with h/o Scleroderma on chronic prednisone, HTN, hyperlipidemia, hyponatremia who was admitted for near syncope. Treated for dehydration with IVF. Was to be discharged last night, had a MRI done with ativan given. This AM, somnolent, lethargic but arousable and increasing shortness of breath. CXR today suggestive of pulmonary edema and bloodwork showing dropping H/H, transfered to the ICU for closer monitoring. - Current Medication List Current Medications: Active Medications Atorvastatin Calcium (Lipitor -) 20 mg PO HS [facility] Last Admin: 01/03/19 21:31 Dose: 20 mg Furosemide (Lasix Injection -) 40 mg IVPUSH DAILY [facility] Last Admin: 01/03/19 14:15 Dose: 40 mg Trimethoprim/Sulfamethoxazole (80 mg/ Dextrose) 105 mls @ 105 mls/hr IVPB Q8H- IV [facility] Last Admin: 01/04/19 02:19 Dose: 105 mls/hr Methylprednisolone Sodium Succinate (Solu-Medrol -) 40 mg IVPUSH Q8H-IV [facility] Last Admin: 01/04/19 02:19 Dose: 40 mg Metoprolol Succinate (Toprol Xl -) 50 mg PO DAILY [facility] Last Admin: 01/03/19 11:00 Dose: Not Given Pantoprazole Sodium (Protonix Iv) 40 mg IVPUSH BID [facility] Last Admin: 01/03/19 21:31 Dose: 40 mg Valsartan (Diovan -) 320 mg PO DAILY [facility] Last Admin: 01/02/19 10:21 Dose: 320 mg - Objective Vital Signs: Vital Signs Temperature 98 F 01/04/19 06:00 Pulse Rate 102 H 01/04/19 06:00 Respiratory Rate 12 01/04/19 06:00 Blood Pressure 94/65 01/04/19 06:00 O2 Sat by Pulse Oximetry (%) 99 01/03/19 21:44 Eyes: Yes: WNL, Conjunctiva Clear, EOM Intact HENT: Yes: WNL, Atraumatic, Normocephalic Neck: Yes: WNL, Supple, Trachea Midline Cardiovascular: Yes: WNL, Regular Rate and Rhythm Respiratory: Yes: Diminished Gastrointestinal: Yes: WNL, Normal Bowel Sounds Genitourinary: Yes: WNL Musculoskeletal: Yes: WNL Extremities: Yes: WNL Edema: No Integumentary: Yes: WNL Neurological: Yes: WNL, Alert, Oriented ...Motor Strength: WNL Psychiatric: Yes: WNL Labs: CBC, BMP 01/04/19 05:20 01/04/19 05:20 Assessment/Plan Problems (1) APC (atrial premature contractions) Assessment/Plan: Chart reviewed. Previous EKGs dating to 2011 reviewed: no evidence of atrial fibrillation (even with one EKG "computer reading" of AF that, when perused, was actually NSR with APCs). GI workup noted: pt is at elevated risk for GI bleed. In addition, hx of hyponatremia, multiple falls, and now with lightheadedness. No hx CAD. Discussed with Ms. Dillon, Dr. Enmanuel Girard (PMD) and Dr. Tena. no anticoagulant is needed, and clopidgrel will be stopped. Telemetry: NSR: frequent APCs. Recommend gradually discontinuing metoprolol (scleroderma; Raynaud's). Code(s): I49.1 - ATRIAL PREMATURE DEPOLARIZATION (2) Anemia Code(s): D64.9 - ANEMIA, UNSPECIFIED (3) Finger lesion Assessment/Plan: 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 (Any potential therapy should take into consideration pt's scleroderma). Code(s): L98.9 - DISORDER OF THE SKIN AND SUBCUTANEOUS TISSUE, UNSPECIFIED (4) GI bleed Code(s): K92.2 - GASTROINTESTINAL HEMORRHAGE, UNSPECIFIED (5) Lightheadedness Assessment/Plan: orthostatic VS maintain hydration. F/u electrolytes. Code(s): R42 - DIZZINESS AND GIDDINESS (6) Failure to thrive Code(s): RTY0315 - (7) HLD (hyperlipidemia) Code(s): E78.5 - HYPERLIPIDEMIA, UNSPECIFIED (8) HTN (hypertension) Assessment/Plan: on valsartan. On metoprolol (consider changing due to peripheral abnormalities related to scleroderma, Rayaud's). Code(s): I10 - ESSENTIAL (PRIMARY) HYPERTENSION (9) Pleural effusion Code(s): J90 - PLEURAL EFFUSION, NOT ELSEWHERE CLASSIFIED (10) Scleroderma Assessment/Plan: CREST syndrome. Recommend discontinuation of metoprolol (scleroderma; Raynaud's). Pt is depressed because "they can't do anything about it". 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 Code(s): F32.9 - MAJOR DEPRESSIVE DISORDER, SINGLE EPISODE, UNSPECIFIED (14) Hypomagnesemia Assessment/Plan: replete, and keep level 2-2.4. Keep K+ 4-4.5. Code(s): E83.42 - HYPOMAGNESEMIA (15) Chronic interstitial lung disease Assessment/Plan: f/u with sales representative graphic art. Code(s): J84.9 - INTERSTITIAL PULMONARY DISEASE, UNSPECIFIED CXR increased markings cont respiratory support agree with danilo DAS time spent 37 min
[2019-01-04] MEDS: PANTOPRAZOLE SODIUM 40 MG VIAL IVPUSH SCH ×2 (09:13→21:32)
[2019-01-04] MEDS: FUROSEMIDE 40 MG/4 ML INJECTABLE VIAL IVPUSH SCH (09:14)
--- NOTE | 2019-01-04 09:14 | EKG ---
Test Reason : Blood Pressure : / mmHG Vent. Rate : 108 BPM Atrial Rate : 096 BPM P-R Int : 000 ms QRS Dur : 096 ms QT Int : 382 ms P-R-T Axes : 000 -35 155 degrees QTc Int : 511 ms ATRIAL FIBRILLATION WITH RAPID VENTRICULAR RESPONSE LEFT AXIS DEVIATION NONSPECIFIC ST AND T WAVE ABNORMALITY ABNORMAL ECG WHEN COMPARED WITH ECG OF 03-JAN-2019 13:06, ATRIAL FIBRILLATION HAS REPLACED SINUS RHYTHM Confirmed by JOSE YANG, ANDRADE ([id number]) on 01/04/2019 9:13:59 AM Referred By: Saskia MARS Confirmed By:ANDRADE GARCIA MD
--- NOTE | 2019-01-04 10:26 | PN ---
Physical Exam: SUBJECTIVE: Patient seen and examined, awake, interactive, denies any pain or dyspnea currently. No clear recollection of events over last 24 hours. OBJECTIVE: Vital Signs Period Temp Pulse Resp BP Sys/Stewart Pulse Ox Last 24 Hr 97.4 F-99.8 F 75-105 12-21 83-122/46-85 99 Intake & Output 01/01/19 01/02/19 01/03/19 01/04/19 23:59 23:59 23:59 23:59 Intake Total 900 2100 450 100 Output Total 3200 900 Balance 900 2100 -2750 -800 Weight 116 lb 3.2 oz GENERAL: awake, responsive today, almost back to her baseline, no acute distress , on 50% VM Neck: soft, supple, limited exam Chest: bibasilar fine rales, improved air entry Abdomen:soft, NT, ND, pos bowel sounds, no voluntary or involuntary guarding or rigidity Extremities: chronic deformity, right thumb lesion unchanged, 1+ pedal edema psych: anxious but awake and appropriate currently Laboratory Results - last 24 hr 01/03/19 01/03/19 01/03/19 05:30 05:30 11:00 WBC RBC Hgb Hct MCV MCH MCHC RDW Plt Count 346 D MPV Absolute Neuts (auto) Neutrophils % Lymphocytes % Monocytes % Eosinophils % Basophils % Nucleated RBC % Platelet Estimate Adequate Platelet Comment Plts scanned Puncture Site ABG pH ABG pCO2 at Pt Temp ABG pO2 at Pt Temp ABG HCO3 ABG O2 Sat (Measured) ABG O2 Content ABG Base Excess Eirk Test O2 Delivery Device Oxygen Flow Rate Sodium 136 Potassium 4.6 Chloride 105 Carbon Dioxide 17 L Anion Gap 13 BUN 21.5 H Creatinine 1.1 Est GFR (CKD-EPI)AfAm 53.39 Est GFR (CKD-EPI)NonAf 46.07 Random Glucose 117 H Calcium 7.9 L Phosphorus 3.7 Magnesium 2.0 Troponin I 0.11 H 0.28 H B-Natriuretic Peptide 75181.9 H Blood Type Antibody Screen Crossmatch 01/03/19 01/03/19 01/03/19 11:30 12:40 15:50 WBC 9.9 RBC 2.19 L Hgb 6.9 L* Hct 19.9 L D MCV 90.9 MCH 31.3 MCHC 34.5 RDW 16.9 H Plt Count 173 D MPV 8.2 Absolute Neuts (auto) Neutrophils % Lymphocytes % Monocytes % Eosinophils % Basophils % Nucleated RBC % Platelet Estimate Platelet Comment Puncture Site Right radial ABG pH 7.46 H ABG pCO2 at Pt Temp 30.1 L ABG pO2 at Pt Temp 161 H ABG HCO3 21.1 L ABG O2 Sat (Measured) 99.6 H ABG O2 Content 9.5 L* ABG Base Excess -2.0 Erik Test Positive O2 Delivery Device Venti mask Oxygen Flow Rate 50% Sodium Potassium Chloride Carbon Dioxide Anion Gap BUN Creatinine Est GFR (CKD-EPI)AfAm Est GFR (CKD-EPI)NonAf Random Glucose Calcium Phosphorus Magnesium Troponin I B-Natriuretic Peptide Blood Type B NEGATIVE Antibody Screen Negative Crossmatch See Detail 01/03/19 01/03/19 01/04/19 19:05 23:55 05:20 WBC 8.7 7.2 RBC 3.05 L 2.85 L Hgb 9.1 L 8.7 L Hct 26.9 L D 24.7 L MCV 88.3 86.7 MCH 29.8 30.6 MCHC 33.8 35.2 RDW 18.2 H 18.7 H Plt Count 246 D MPV 8.0 8.3 Absolute Neuts (auto) 6.2 Neutrophils % 86.1 H Lymphocytes % 12.7 Monocytes % 1.1 L D Eosinophils % 0.0 Basophils % 0.1 Nucleated RBC % 0 Platelet Estimate Platelet Comment Puncture Site ABG pH ABG pCO2 at Pt Temp ABG pO2 at Pt Temp ABG HCO3 ABG O2 Sat (Measured) ABG O2 Content ABG Base Excess Erik Test O2 Delivery Device Oxygen Flow Rate Sodium Potassium Chloride Carbon Dioxide Anion Gap BUN Creatinine Est GFR (CKD-EPI)AfAm Est GFR (CKD-EPI)NonAf Random Glucose Calcium Phosphorus Magnesium Troponin I B-Natriuretic Peptide Blood Type B NEGATIVE Antibody Screen Crossmatch 01/04/19 05:20 WBC RBC Hgb Hct MCV MCH MCHC RDW Plt Count MPV Absolute Neuts (auto) Neutrophils % Lymphocytes % Monocytes % Eosinophils % Basophils % Nucleated RBC % Platelet Estimate Platelet Comment Puncture Site ABG pH ABG pCO2 at Pt Temp ABG pO2 at Pt Temp ABG HCO3 ABG O2 Sat (Measured) ABG O2 Content ABG Base Excess Erik Test O2 Delivery Device Oxygen Flow Rate Sodium 138 Potassium 3.5 Chloride 105 Carbon Dioxide 23 Anion Gap 10 BUN 23.2 H Creatinine 1.1 Est GFR (CKD-EPI)AfAm 53.39 Est GFR (CKD-EPI)NonAf 46.07 Random Glucose 153 H Calcium 8.0 L Phosphorus 5.1 H Magnesium 1.6 L Troponin I B-Natriuretic Peptide Blood Type Antibody Screen Crossmatch Active Medications Generic Name Dose Route Start Last Admin Trade Name Freq PRN Reason Stop Dose Admin Atorvastatin Calcium 20 mg 12/29/18 22:00 01/03/19 21:31 Lipitor - PO 20 mg HS ALANNA Administration Furosemide 40 mg 01/03/19 14:00 01/04/19 09:14 Lasix Injection - IVPUSH 40 mg DAILY ALANNA Administration Trimethoprim/Sulfamethoxazole 105 mls @ 105 mls/hr 01/03/19 18:00 01/04/19 09 :22 80 mg/ Dextrose IVPB 105 mls/hr Q8H-IV ALANNA Administration Magnesium Oxide 800 mg 01/05/19 10:00 Mag-Ox - PO 01/07/19 10:01 DAILY ALANNA Methylprednisolone Sodium Succinate 40 mg 01/03/19 14:00 01/04/19 09:51 Solu-Medrol - IVPUSH Not Given Q8H-IV ALANNA Metoprolol Succinate 50 mg 12/30/18 10:00 01/04/19 09:14 Toprol Xl - PO 50 mg DAILY ALANNA Administration Pantoprazole Sodium 40 mg 01/01/19 10:15 01/04/19 09:13 Protonix Iv IVPUSH 40 mg BID ALANNA Administration Valsartan 320 mg 12/30/18 10:00 01/02/19 10:21 Diovan - PO 320 mg DAILY ALANNA Administration Microbiology 01/02/19 04:30 Urine - Urine Clean Catch Urine Culture - Final Contaminated: Please Repeat 12/30/18 09:10 Urine - Urine Clean Catch Urine Culture - Final Contaminated: Please Repeat CXR results and images reviewed. Some improvement in congestion. ASSESSMENT/PLAN: 83 yof with PMhx of Scleroderma, Atrial fibrillation, not on AC but on plavix, raynaud's phenomenon, ILD on imaging in 2012Chronic hyponatremia/SIADH, HTN, HLD , OA, recurrent stasis ulcer RLE since 02/2018 being followed at wound care ( With Dr. Hernández and Dr. Austin), recent admissions to [facility] in 09/2018 with cellulitis/HCAP, then 11/2018 with weakness suspected from hypovolumia/ steroid induced myopathy readmitted with near syncope after straining on toilet and found pos FOBT. -Acute diastolic heart failure exacerbation, ?from volume resuscitation -Acute hypoxic respiratory distress, suspect from above and known underlying poor reserve from ILD, less likely infectious process -AMS, likely toxic metabolic encephalopathy from above/Ativan -Acute on chronic anemia, ?occult GI bleed -Elevated troponin, suspect demand induced NSTEMI from above. 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 Lasix 40 mg IV daily. BP soft today, suspect from aggressive diuresis, CXR improved. Hold ARB. Amlodipine d/dionte. Cards rec dcing metoprolol, will taper to 25 mg as tolerated. EKG reviewed, back in Afib with RVR. Will address again with Dr. Serrato about AC. (patient was just taken off plavix) once anemia concerns resolved. CT brain neg for acute process. Avoid benzos/sedatives. Trop flat. Monitor. s/p 1 unit PRBC 6/6 with appropriate response. No gross evidence of bleed, GI input noted, monitor h/h for now. Address possible colonoscopy with GI once active respiratory concerns improved. 2D echo/Carotid duplex noted. ID input noted, monitor off abx, suspect asymptomatic bacteruria. ESR/CRP noted however non specific in the setting of known rheumatological disease. WBC high, unclear etiology, MRI right hand noted, discussed with Dr. Stoll, hold off on antibiotics, recommend follow up at [facility] in future if concerns. Prednisone 5 mg daily, will taper to off over next 2-3 days. Outpatient rheumatology follow up. Continue statin. Patient now agrees to SNF. PLan for SNF once medical symptoms improve. DVTPPX SCDs Plan discussed with patient and nursing, all questions answered. Total critical care time spent 38 min. Visit type - Emergency Visit Emergency Visit: Yes ED Registration Date: 12/30/18 Care time: The patient presented to the Emergency Department on the above date and was hospitalized for further evaluation of their emergent condition. - New Patient This patient is new to me today: No - Critical Care Critical Care patient: Yes Total Critical Care Time (in minutes): 38 Critical Care Statement: The care of this patient involved high complexity decision making to prevent further life threatening deterioration of the patient 's condition and/or to evaluate & treat vital organ system(s) failure or risk of failure.
--- NOTE | 2019-01-04 10:55 | PN ---
Teaching Attending Note Name of Resident: Jalil Sparks ATTENDING PHYSICIAN STATEMENT I saw and evaluated the patient. I reviewed the resident's note and discussed the case with the resident. I agree with the resident's findings and plan as documented. SUBJECTIVE: Pt seen and examined in the ICU. Mental status much improved today. Denies shortness of breath or chest pain. Appears to be in atrial fibrillation this AM. OBJECTIVE: Vital Signs Period Temp Pulse Resp BP Sys/Stewart Pulse Ox Last 24 Hr 97.4 F-99.8 F 75-105 12-21 83-122/46-85 99 Intake & Output 01/01/19 01/02/19 01/03/19 01/04/19 23:59 23:59 23:59 23:59 Intake Total 900 2100 450 100 Output Total 3200 900 Balance 900 2100 -2750 -800 Weight 52.707 kg Gen: more alert, awake Heart: irregular Lung: scattered rhonchi Abd: soft, nontender Ext: no edema CBC, BMP 01/04/19 05:20 01/04/19 05:20 Active Medications Atorvastatin Calcium (Lipitor -) 20 mg PO HS [facility] Last Admin: 01/03/19 21:31 Dose: 20 mg Furosemide (Lasix Injection -) 40 mg IVPUSH DAILY [facility] Last Admin: 01/04/19 09:14 Dose: 40 mg Trimethoprim/Sulfamethoxazole (80 mg/ Dextrose) 105 mls @ 105 mls/hr IVPB Q8H- IV [facility] Last Admin: 01/04/19 09:22 Dose: 105 mls/hr Magnesium Oxide (Mag-Ox -) 800 mg PO DAILY [facility] Stop: 01/07/19 10:01 Methylprednisolone Sodium Succinate (Solu-Medrol -) 40 mg IVPUSH Q8H-IV [facility] Last Admin: 01/04/19 09:51 Dose: Not Given Metoprolol Succinate (Toprol Xl -) 25 mg PO DAILY [facility] Pantoprazole Sodium (Protonix Iv) 40 mg IVPUSH BID [facility] Last Admin: 01/04/19 09:13 Dose: 40 mg Valsartan (Diovan -) 320 mg PO DAILY [facility] Last Admin: 01/02/19 10:21 Dose: 320 mg ASSESSMENT AND PLAN: Altered Mental Status likely from benzodiazepine Acute Pulmonary Edema/Acute on Chronic Diastolic Heart Failure +Troponins likely Demand Ischemia r/o UTI Scleroderma on chronic prednisone HTN Hyperlipidemia - IV lasix - monitor urine output, creatinine - anticoagulation per cardiology - rate controlled - O2 to keep Spo2 >90% - aspiration precautions - monitor H/H - inhaled bronchodilators - d/c empiric medrol - empiric antibiotics for UTI - f/u cultures - echocardiogram - DVT prophylaxis - can monitor on telemetry
[2019-01-04 11:47] LABS: PLATELET COUNT 244.8 K/MM3 (134-434)
[2019-01-04] MEDS: VALSARTAN 160 MG TABLET (UD) PO SCH (11:55)
[2019-01-04] MEDS ORDERED: SODIUM CHLORIDE 250 ML IV STA (17:41)
[2019-01-04] MEDS: ATORVASTATIN CA 20 MG TABLET (FP) PO SCH (21:32)
[2019-01-05] MEDS: DEXTROSE 5% IVPB SCH ×2 (03:45→10:53)
[2019-01-05] MEDS: WATER IVPB SCH ×2 (03:45→10:53)
[2019-01-05] MEDS: SULFAMETHOXAZOLE IVPB SCH ×2 (03:45→10:53)
[2019-01-05] MEDS: TRIMETHOPRIM IVPB SCH ×2 (03:45→10:53)
[2019-01-05 06:10] LABS: HEMOGLOBIN 8.9 GM/dL (10.7-15.3); MCHC 34.2 g/dl (32.0-36.0); MEAN CELL VOLUME 87.8 fl (80-96); MEAN PLT VOLUME 8.2 fl (7.5-11.1); PLATELET COUNT 299 K/MM3 (134-434); RBC 2.96 M/mm3 (3.60-5.2); RDW 19.1 % (11.6-15.6); WHITE BLOOD COUNT 11.8 K/mm3 (4.0-10.0)
[2019-01-05 06:17] LABS: ALBUMIN 2.5 g/dl (3.4-5.0); BILIRUBIN,TOTAL 0.2 mg/dL (0.2-1); BLOOD UREA NITROGEN 33.6 mg/dL (7-18); CALCIUM 8.2 mg/dL (8.5-10.1); CREATININE 1.3 mg/dL (0.55-1.3); MAGNESIUM 1.9 mg/dL (1.8-2.4); PHOSPHOROUS 3.6 mg/dL (2.5-4.9); POTASSIUM 3.8 mmol/L (3.5-5.1)
--- NOTE | 2019-01-05 07:01 | PN ---
Physical Exam: SUBJECTIVE: Patient seen and examined at bedside. She is awake, alert, oriented and communicative. No bowel moments, or bright red blood per rectum, or melena overnight. Patient denies acute complaints. Tolerating diet without abdominal pain, nausea, or vomiting. She denies subjective fevers, chills, shortness of breath, chest pain, palpitations. Transfer to Telemetry floor was held yesterday due to tenuous blood pressures, concern for over-diuresis. No evidence of lashay bleeding noted. OBJECTIVE: Vital Signs Period Temp Pulse Resp BP Sys/Stewart Pulse Ox Last 24 Hr 97.7 F-98.4 F 72-95 11-17 87-107/44-68 94-99 GENERAL: The patient is awake, alert, and fully oriented, in no acute distress. HEAD: Normocephalic, atraumatic. EYES: PERRL, extraocular movements intact, sclera anicteric, conjunctiva clear. ENT: Oropharynx clear, without erythema or exudates. Moist mucous membranes. NECK: Trachea midline. Supple without lymphadenopathy. LUNGS: Good inspiratory effort. Breath sounds equal, faint crackles auscultated bilaterally. No accessory muscle use. HEART: Regular rate and rhythm, S1, S2 without murmur, rub or gallop. ABDOMEN: Soft, nondistended, nontender to light and deep palpation x4 quadrants , no rebound tenderness, no guarding. Normoactive bowel sounds x4 quadrants. no hepatosplenomegaly, no masses. RECTAL: Good anal sphincter tone. No external or internal hemorrhoids palpated. No stool palpated within rectal vault. No lashay blood upon gloved finger. Sample sent for occult blood. EXTREMITIES: 2+ radial, dorsalis pedis pulses bilaterally. Warm, well-perfused. No lower extremity edema bilaterally. NEUROLOGICAL: Cranial nerves II through XII grossly intact. Normal speech. No gross focal deficits. PSYCH: Normal mood, normal affect upon my encounter. SKIN: Warm, dry. Laboratory Results - last 24 hr 01/04/19 01/04/19 01/04/19 05:20 05:20 16:20 WBC 7.2 RBC 2.85 L Hgb 8.7 L Hct 24.7 L MCV 86.7 MCH 30.6 MCHC 35.2 RDW 18.7 H Plt Count 244.8 MPV 8.3 Absolute Neuts (auto) 6.2 Neutrophils % 86.1 H Lymphocytes % 12.7 Monocytes % 1.1 L D Eosinophils % 0.0 Basophils % 0.1 Nucleated RBC % 0 Sodium 138 Potassium 3.5 Chloride 105 Carbon Dioxide 23 Anion Gap 10 BUN 23.2 H Creatinine 1.1 Est GFR (CKD-EPI)AfAm 53.39 Est GFR (CKD-EPI)NonAf 46.07 Random Glucose 153 H Calcium 8.0 L Phosphorus 5.1 H Magnesium 1.6 L Total Bilirubin AST ALT Alkaline Phosphatase Total Protein Albumin Stool Occult Blood Negative 01/05/19 05:10 WBC RBC Hgb Hct MCV MCH MCHC RDW Plt Count MPV Absolute Neuts (auto) Neutrophils % Lymphocytes % Monocytes % Eosinophils % Basophils % Nucleated RBC % Sodium 141 Potassium 3.8 Chloride 105 Carbon Dioxide 24 Anion Gap 11 BUN 33.6 H Creatinine 1.3 Est GFR (CKD-EPI)AfAm 43.63 Est GFR (CKD-EPI)NonAf 37.64 Random Glucose 143 H Calcium 8.2 L Phosphorus 3.6 Magnesium 1.9 Total Bilirubin 0.2 AST 26 ALT 42 Alkaline Phosphatase 76 Total Protein 6.0 L Albumin 2.5 L Stool Occult Blood Active Medications Generic Name Dose Route Start Last Admin Trade Name Freq PRN Reason Stop Dose Admin Atorvastatin Calcium 20 mg 12/29/18 22:00 01/04/19 21:32 Lipitor - PO 20 mg HS [facility] Administration Furosemide 40 mg 01/03/19 14:00 01/04/19 09:14 Lasix Injection - IVPUSH 40 mg DAILY [facility] Administration Trimethoprim/Sulfamethoxazole 105 mls @ 105 mls/hr 01/03/19 18:00 01/05/19 03 :45 80 mg/ Dextrose IVPB 105 mls/hr Q8H-IV [facility] Administration Magnesium Oxide 800 mg 01/05/19 10:00 Mag-Ox - PO 01/07/19 10:01 DAILY [facility] Metoprolol Succinate 25 mg 01/05/19 10:00 Toprol Xl - PO DAILY [facility] Pantoprazole Sodium 40 mg 01/01/19 10:15 01/04/19 21:32 Protonix Iv IVPUSH 40 mg BID [facility] Administration Valsartan 320 mg 12/30/18 10:00 01/04/19 11:55 Diovan - PO Not Given DAILY [facility] ASSESSMENT/PLAN: Patient is an 83 year old female with history of hypertension, hyperlipidemia, Sleroderma, Raynauds, hyponatremia admitted to ICU after acute metabolic encephalopathy. Neurologic Acute metabolic encephalopathy- resolved. Likely secondary to Benzodiazepine. -Today patient is awake, alert, fully oriented -No sedative medications overnight, or this morning. Will withhold any further sedatives -Monitor closely for mental status changes Pulmonary -Chest radiograph shows persistent bilateral congestive changes -Currently saturating well on 2L nasal canula -Lasix 40mg IV daily -Discontinue Medrol Cardiac History of hypertension History of hyperlipidemia -Currently rate controlled. -Cardiology (Dr. Rodas) recommendations appreciated. -Cardiac monitoring -Metoprolol 25mg PO daily -Atorvastatin 20mg PO HS Gastrointestinal -Upper endoscopy reveals Grade D ulcerative esophagitis, without active bleeding. 4-5cm hiatal hernia noted. -Gastroenterology recommendations (Dr. Hoang) appreciated. -Discussed anticoagulation with both Cardiology, and Gastroenterology. In light of Afib (questionable Afib vs. PAC in the past), and Grade D esophagitis noted upon recent upper endoscopy, will withhold chemical anticoagulation at this time. -Patient is s/p 1 unit PRBCs 01/03/2019. Continue to monitor for signs of acute bleeding. Rheumatology History of Crest syndrome (scleroderma) -Medrol discontinued. Patient had completed outpatient Prednisone -MRI hand reveals severe osseous changes Infectious disease -Urinalysis suggestive of urinary tract infection -Bactrim 80mg IV Q8 hours -Infectious disease consult (Dr. Harding) appreciated Prophylaxis -Protonix 40mg IV BID -SCDs bilateral lower extremities. Disposition -Patient is medically stable for transfer to Telemetry floor. Visit type - Emergency Visit Emergency Visit: No - New Patient This patient is new to me today: No - Critical Care Critical Care patient: Yes Total Critical Care Time (in minutes): 35 Critical Care Statement: The care of this patient involved high complexity decision making to prevent further life threatening deterioration of the patient 's condition and/or to evaluate & treat vital organ system(s) failure or risk of failure. - Discharge Referral Referred to [facility] No
[2019-01-05] MEDS: VALSARTAN 160 MG TABLET (UD) PO SCH (09:05)
--- NOTE | 2019-01-05 09:19 | PN ---
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 She notes her nurse has noticed her stool has been black for the past week, which she believes is related to taking iron daily. Today, patient notes she began feeling lightheaded , "like she was going to pass out," upon getting up and trying to go to the bathroom 2.5 hours ago (she ambulates with a walker at baseline). She reports immediately sitting down as she thought she was going to fall and her symptoms self-resolved after 15 minutes. As per patients daughter, she notes the patient has had symptoms similar to this before when she has had an UTI. Patient endorses mild chills, diaphoresis, and generalized weakness while in the ED. She is currently on a tapered dose of Prednisone for her Raynaud's but denies currently being on antibiotics for last UTI. Pt denies any dysarthria, headache, neck pain, diplopia, numbness/tingling/weakness, cp, back pain. The patient denies shortness of breath, and headache. Denies fever, nausea, vomit, diarrhea and constipation. Denies dysuria, frequency, urgency and hematuria. Allergies: Aspirin, cephalexin, ciprofloxacin, penicillins, quinolones Past surgical history: appendectomy, abdominal surgery, orthopedic surgery Social history: No reported PCP: Dr. Enmanuel Girard Hospital course ; 83yo female with h/o Scleroderma on chronic prednisone, HTN, hyperlipidemia, hyponatremia who was admitted for near syncope. Treated for dehydration with IVF. Was to be discharged last night, had a MRI done with ativan given. This AM, somnolent, lethargic but arousable and increasing shortness of breath. CXR today suggestive of pulmonary edema and bloodwork showing dropping H/H, transfered to the ICU for closer monitoring. - Current Medication List Current Medications: Active Medications Atorvastatin Calcium (Lipitor -) 20 mg PO HS [facility] Last Admin: 01/04/19 21:32 Dose: 20 mg Furosemide (Lasix Injection -) 40 mg IVPUSH DAILY [facility] Last Admin: 01/04/19 09:14 Dose: 40 mg Trimethoprim/Sulfamethoxazole (80 mg/ Dextrose) 105 mls @ 105 mls/hr IVPB Q8H- IV [facility] Last Admin: 01/05/19 03:45 Dose: 105 mls/hr Magnesium Oxide (Mag-Ox -) 800 mg PO DAILY [facility] Stop: 01/07/19 10:01 Metoprolol Succinate (Toprol Xl -) 25 mg PO DAILY [facility] Pantoprazole Sodium (Protonix Iv) 40 mg IVPUSH BID [facility] Last Admin: 01/04/19 21:32 Dose: 40 mg Valsartan (Diovan -) 320 mg PO DAILY [facility] Last Admin: 01/05/19 09:05 Dose: Not Given - Objective Vital Signs: Vital Signs Temperature 97.7 F 01/05/19 02:00 Pulse Rate 81 01/05/19 08:00 Respiratory Rate 16 01/05/19 08:12 Blood Pressure 106/66 01/05/19 08:00 O2 Sat by Pulse Oximetry (%) 94 L 01/05/19 08:12 Eyes: Yes: WNL, Conjunctiva Clear, EOM Intact HENT: Yes: WNL, Atraumatic, Normocephalic Neck: Yes: WNL, Supple, Trachea Midline Cardiovascular: Yes: Pulse Irregular, S1, S2 Respiratory: Yes: WNL, Regular, CTA Bilaterally Gastrointestinal: Yes: WNL, Normal Bowel Sounds Genitourinary: Yes: WNL Musculoskeletal: Yes: WNL Extremities: Yes: WNL Edema: No Integumentary: Yes: WNL Neurological: Yes: WNL, Alert, Oriented ...Motor Strength: WNL Psychiatric: Yes: WNL Labs: CBC, BMP 01/05/19 05:10 01/05/19 05:10 Assessment/Plan Problems (1) APC (atrial premature contractions) Assessment/Plan: A fib rate controlled on lopressor would benefit from ac when stable/safe to use from GI point of view Code(s): I49.1 - ATRIAL PREMATURE DEPOLARIZATION (2) Anemia Code(s): D64.9 - ANEMIA, UNSPECIFIED (3) Finger lesion Assessment/Plan: 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 (Any potential therapy should take into consideration pt's scleroderma). Code(s): L98.9 - DISORDER OF THE SKIN AND SUBCUTANEOUS TISSUE, UNSPECIFIED (4) GI bleed Code(s): K92.2 - GASTROINTESTINAL HEMORRHAGE, UNSPECIFIED (5) Lightheadedness Assessment/Plan: orthostatic VS maintain hydration. F/u electrolytes. Code(s): R42 - DIZZINESS AND GIDDINESS (6) Failure to thrive Code(s): HVF7275 - (7) HLD (hyperlipidemia) Code(s): E78.5 - HYPERLIPIDEMIA, UNSPECIFIED (8) HTN (hypertension) Assessment/Plan: on valsartan. On metoprolol (consider changing due to peripheral abnormalities related to scleroderma, Rayaud's). Code(s): I10 - ESSENTIAL (PRIMARY) HYPERTENSION (9) Pleural effusion Code(s): J90 - PLEURAL EFFUSION, NOT ELSEWHERE CLASSIFIED (10) Scleroderma Assessment/Plan: CREST syndrome. Recommend discontinuation of metoprolol (scleroderma; Raynaud's). Pt is depressed because "they can't do anything about it". 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 Code(s): F32.9 - MAJOR DEPRESSIVE DISORDER, SINGLE EPISODE, UNSPECIFIED (14) Hypomagnesemia Assessment/Plan: replete, and keep level 2-2.4. Keep K+ 4-4.5. Code(s): E83.42 - HYPOMAGNESEMIA (15) Chronic interstitial lung disease Assessment/Plan: f/u with blood bank credit clerk. Code(s): J84.9 - INTERSTITIAL PULMONARY DISEASE, UNSPECIFIED CXR increased markings cont respiratory support agree with danilo DAS time spent 37 min
[2019-01-05] MEDS ORDERED: MAGNESIUM OXIDE 400 MG TABLET (FP) PO SCH (10:00)
[2019-01-05] MEDS ORDERED: metoPROLOL SUCCINATE 25 MG TAB.SR.24H (FP) PO SCH (10:00)
[2019-01-05] MEDS: PANTOPRAZOLE SODIUM 40 MG VIAL IVPUSH SCH ×2 (10:12→22:20)
[2019-01-05] MEDS ORDERED: PT OWN MED DRAWER 7, Y5N ONE (10:16)
--- NOTE | 2019-01-05 10:27 | PN ---
Teaching Attending Note Name of Resident: Kamila Greenberg ATTENDING PHYSICIAN STATEMENT I saw and evaluated the patient. I reviewed the resident's note and discussed the case with the resident. I agree with the resident's findings and plan as documented with exceptions below. SUBJECTIVE: Patient seen and examined, Feels better, denies any dyspnea, dizziness, abdominal or urinary symptoms. No fevers, chills or pain noted. OBJECTIVE: Vital Signs Period Temp Pulse Resp BP Sys/Stewart Pulse Ox Last 24 Hr 97.7 F-98.4 F 72-93 11-17 87-106/44-68 94-94 Intake & Output 01/02/19 01/03/19 01/04/19 01/05/19 23:59 23:59 23:59 23:59 Intake Total 2100 450 890 Output Total 3200 1450 Balance 2100 -2750 -560 Weight 116 lb 3.2 oz 124 lb General: lying in bed, no acute distress Chest: bibasilar rales, R>L Abdomen:soft, NT, ND, pos bowel sounds Extremities: trace pedal edema, right thumb lesion unchanged, no new erythema, discharge or swelling noted Psych: anxious but awake and appropriate Neuro: AAOx3, close to her baseline, no focal deficits noted Home Medications Medication Instructions Recorded Metoprolol Succinate [Toprol Xl] 50 mg PO DAILY 10/13/18 Valsartan 320 mg PO DAILY 10/13/18 Gabapentin [Neurontin -] 100 mg PO HS capsule 10/21/18 Atorvastatin Ca [Lipitor] 20 mg PO HS 12/17/18 Bethanechol Chloride 25 mg PO TID 12/22/18 Pantoprazole Sodium [Protonix] 40 mg PO BID #28 tablet. 01/02/19 predniSONE [Deltasone -] 5 mg PO DAILY #3 tablet 01/02/19 Active Medications Atorvastatin Calcium (Lipitor -) 20 mg PO [facility] Last Admin: 01/04/19 21:32 Dose: 20 mg Furosemide (Lasix Injection -) 40 mg IVPUSH DAILY [facility] Last Admin: 01/04/19 09:14 Dose: 40 mg Furosemide (Lasix Injection -) 20 mg IVPUSH DAILY [facility] Magnesium Oxide (Mag-Ox -) 800 mg PO DAILY [facility] Stop: 01/07/19 10:01 Last Admin: 01/05/19 10:12 Dose: 800 mg Metoprolol Succinate (Toprol Xl -) 25 mg PO DAILY [facility] Last Admin: 01/05/19 10:12 Dose: Not Given Pantoprazole Sodium (Protonix Iv) 40 mg IVPUSH BID [facility] Last Admin: 01/05/19 10:12 Dose: 40 mg Laboratory Results - last 24 hr 01/04/19 01/04/19 01/05/19 05:20 16:20 05:10 WBC 11.8 H RBC 2.96 L Hgb 8.9 L Hct 26.0 L MCV 87.8 MCH 30.0 MCHC 34.2 RDW 19.1 H Plt Count 244.8 299 D MPV 8.2 Manual Slide Review Y Sodium Potassium Chloride Carbon Dioxide Anion Gap BUN Creatinine Est GFR (CKD-EPI)AfAm Est GFR (CKD-EPI)NonAf Random Glucose Calcium Phosphorus Magnesium Total Bilirubin AST ALT Alkaline Phosphatase Total Protein Albumin Stool Occult Blood Negative 01/05/19 01/05/19 05:10 08:45 WBC RBC Hgb Hct MCV MCH MCHC RDW Plt Count MPV Manual Slide Review Sodium 141 Potassium 3.8 Chloride 105 Carbon Dioxide 24 Anion Gap 11 BUN 33.6 H Creatinine 1.3 Est GFR (CKD-EPI)AfAm 43.63 Est GFR (CKD-EPI)NonAf 37.64 Random Glucose 143 H Calcium 8.2 L Phosphorus 3.6 Magnesium 1.9 Total Bilirubin 0.2 AST 26 ALT 42 Alkaline Phosphatase 76 Total Protein 6.0 L Albumin 2.5 L Stool Occult Blood Negative Microbiology 01/02/19 04:30 Urine - Urine Clean Catch Urine Culture - Final Contaminated: Please Repeat 12/30/18 09:10 Urine - Urine Clean Catch Urine Culture - Final Contaminated: Please Repeat Telemetry: Afib, NSR with PACs ASSESSMENT AND PLAN: 83 yof with PMhx of Scleroderma, Atrial fibrillation, not on AC but on plavix, raynaud's phenomenon, ILD on imaging in 2012Chronic hyponatremia/SIADH, HTN, HLD , OA, recurrent stasis ulcer RLE since 02/2018 being followed at wound care ( With Dr. Hernández and Dr. Austin), recent admissions to [facility] in 09/2018 with cellulitis/HCAP, then 11/2018 with weakness suspected from hypovolumia/ steroid induced myopathy readmitted with near syncope after straining on toilet and found pos FOBT. -Acute diastolic heart failure exacerbation, suspect from volume resuscitation -Acute hypoxic respiratory distress, suspect from above and known underlying poor reserve from ILD, less likely infectious process -AMS, likely toxic metabolic encephalopathy from above/Ativan -Acute on chronic anemia, ?occult GI bleed -Elevated troponin, suspect demand induced NSTEMI from above. 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 Hold lasix today given soft BP, rising cr and overall improved respiratory status. Resume in 24 hours as tolerated. CXR noted. Hold ARB. . Amlodipine d/dionte. Cards rec dcing metoprolol, will taper to 25 mg as tolerated. EKG reviewed, back in Afib with RVR. Will address again with Dr. Serrato about AC. (patient was just taken off plavix) once anemia concerns resolved. CT brain neg for acute process. Avoid benzos/sedatives. Trop flat. Monitor. s/p 1 unit PRBC 6/6 with appropriate response. No gross evidence of bleed, GI input noted, monitor h/h for now. Address possible colonoscopy with GI once active respiratory concerns improved. 2D echo/Carotid duplex noted. ID input noted, monitor off abx for asymptomatic bacteruria. dc bactrim and monitor clinically. ESR/CRP noted however non specific in the setting of known rheumatological disease. WBC improved, intermittently high, suspect steroid mediated. D/c prednisone. ( was on 5 mg daily with plan to taper off) MRI right hand noted, discussed with Dr. Stoll, hold off on antibiotics, recommend [facility] in future if concerns. Continue statin. Patient now agrees to SNF. PLan for SNF once medical symptoms improve. DVTPPX SCDs Plan discussed with patient and nursing, all questions answered. Total critical care time spent 37 min.
[2019-01-05] MEDS ORDERED: FUROSEMIDE 40 MG/4 ML INJECTABLE VIAL IVPUSH SCH (10:30)
--- NOTE | 2019-01-05 10:41 | PN ---
Physical Exam: SUBJECTIVE: Patient seen and examined Patient resting in bed nad. afebrile hemodynamically stable, HR 90's AF on tele. denies cp, sob, palpitations, lightheadedness. denies melena, hematochezia. OBJECTIVE: Vital Signs Period Temp Pulse Resp BP Sys/Stewart Pulse Ox Last 24 Hr 97.7 F-98.4 F 72-93 11-17 87-106/44-68 94-94 GENERAL: The patient is awake, alert, and fully oriented, in no acute distress. HEAD: Normal with no signs of trauma. EYES: PERRL, extraocular movements intact, sclera anicteric, conjunctiva clear. No ptosis. ENT: moist mucous membranes. NECK: supple. LUNGS: Breath sounds equal, clear to auscultation bilaterally HEART: irregular, s1s2 ABDOMEN: Soft, nontender, nondistended, normoactive bowel sounds EXTREMITIES: 2+ pulses, warm, well-perfused, no edema. NEUROLOGICAL: Cranial nerves II through XII grossly intact. Normal speech, gait not observed. PSYCH: Normal mood, normal affect. SKIN: Warm, dry Laboratory Results - last 24 hr 01/04/19 01/04/19 01/05/19 05:20 16:20 05:10 WBC 11.8 H RBC 2.96 L Hgb 8.9 L Hct 26.0 L MCV 87.8 MCH 30.0 MCHC 34.2 RDW 19.1 H Plt Count 244.8 299 D MPV 8.2 Manual Slide Review Y Sodium Potassium Chloride Carbon Dioxide Anion Gap BUN Creatinine Est GFR (CKD-EPI)AfAm Est GFR (CKD-EPI)NonAf Random Glucose Calcium Phosphorus Magnesium Total Bilirubin AST ALT Alkaline Phosphatase Total Protein Albumin Stool Occult Blood Negative 01/05/19 01/05/19 05:10 08:45 WBC RBC Hgb Hct MCV MCH MCHC RDW Plt Count MPV Manual Slide Review Sodium 141 Potassium 3.8 Chloride 105 Carbon Dioxide 24 Anion Gap 11 BUN 33.6 H Creatinine 1.3 Est GFR (CKD-EPI)AfAm 43.63 Est GFR (CKD-EPI)NonAf 37.64 Random Glucose 143 H Calcium 8.2 L Phosphorus 3.6 Magnesium 1.9 Total Bilirubin 0.2 AST 26 ALT 42 Alkaline Phosphatase 76 Total Protein 6.0 L Albumin 2.5 L Stool Occult Blood Negative Active Medications Generic Name Dose Route Start Last Admin Trade Name Ethan PRN Reason Stop Dose Admin Atorvastatin Calcium 20 mg 12/29/18 22:00 01/04/19 21:32 Lipitor - PO 20 mg HS ALANNA Administration Magnesium Oxide 800 mg 01/05/19 10:00 01/05/19 10:12 Mag-Ox - PO 01/07/19 10:01 800 mg DAILY ALANNA Administration Metoprolol Succinate 25 mg 01/05/19 10:00 01/05/19 10:12 Toprol Xl - PO Not Given DAILY ALANNA Pantoprazole Sodium 40 mg 01/01/19 10:15 01/05/19 10:12 Protonix Iv IVPUSH 40 mg BID ALANNA Administration ASSESSMENT/PLAN: This is an 83 yo F with PMH of hyponatremia with syncope, htn, hld, Raynaud's, Scleroderma, bibems due to near syncope. Patient was sitting on the toilet earlier today, not straining, not actively passing urine or stool when she suddenly felt very dizzy, denies associated flushing, palpitations, cp, nausea. New AF RVR now normal rate vs PACs Acute HFPEF exacerbation Troponemia Acute hypoxic respiratory failure GIB w acute blood loss anemia Severe distal esophagitis near syncope R thumb lesion normocytic anemia Raynauds Scleroderma severe protein calorie malnutrition -previous ekgs and tele strips consistent with nsr with frequent PACs, now appears to be in AF. this may be a factor in frequent near syncopal/syncopal events. continue toprol -volume overload and sob due to volume resuscitation and possible af burden; continue lasix -troponemia likely demand, EKGs appreciated no evidence of asc -s/p EGD no occult bleeding seen -s/p 1 u pRBC, currently hemodynamically stable. hgb 8.9 -continue PPI bid; PO clears -f/u Fe studies -GI note apprecited, AC is permissible. patient would like to discuss her options further with cardiology however is leaning toward no ac. -near syncope likely vasovagal or orthostatic due to dehydration; af and anemia may be contributing. -R hand x ray negative for osteo but suspicious due to elevated esr and crp, possible calcinosis. f/u MRI R hand with benzo for claustrophobia. Problem List - Problems (1) Finger lesion Code(s): L98.9 - DISORDER OF THE SKIN AND SUBCUTANEOUS TISSUE, UNSPECIFIED (2) Near syncope Code(s): R55 - SYNCOPE AND COLLAPSE (3) Raynauds disease Code(s): I73.00 - RAYNAUD'S SYNDROME WITHOUT GANGRENE (4) Scleroderma Code(s): M34.9 - SYSTEMIC SCLEROSIS, UNSPECIFIED (5) HLD (hyperlipidemia) Code(s): E78.5 - HYPERLIPIDEMIA, UNSPECIFIED (6) HTN (hypertension) Code(s): I10 - ESSENTIAL (PRIMARY) HYPERTENSION (7) UTI (urinary tract infection) Code(s): N39.0 - URINARY TRACT INFECTION, SITE NOT SPECIFIED (8) Severe protein-calorie malnutrition Code(s): E43 - UNSPECIFIED SEVERE PROTEIN-CALORIE MALNUTRITION Visit type - Emergency Visit Emergency Visit: Yes ED Registration Date: 12/30/18 Care time: The patient presented to the Emergency Department on the above date and was hospitalized for further evaluation of their emergent condition. - New Patient This patient is new to me today: No - Critical Care Critical Care patient: Yes Total Critical Care Time (in minutes): 35 Critical Care Statement: The care of this patient involved high complexity decision making to prevent further life threatening deterioration of the patient 's condition and/or to evaluate & treat vital organ system(s) failure or risk of failure. - Discharge Referral Referred to [facility] Med P.C.: No
--- NOTE | 2019-01-05 11:22 | PN ---
Teaching Attending Note Name of Resident: Jalil Sparks ATTENDING PHYSICIAN STATEMENT I saw and evaluated the patient. I reviewed the resident's note and discussed the case with the resident. I agree with the resident's findings and plan as documented. SUBJECTIVE: Pt seen and examined in the ICU. Mental status remains improved. Denies shortness of breath or chest pain. OBJECTIVE: Vital Signs Period Temp Pulse Resp BP Sys/Stewart Pulse Ox Last 24 Hr 97.7 F-98.4 F 72-93 11-17 87-106/44-68 94-94 Intake & Output 01/02/19 01/03/19 01/04/19 01/05/19 23:59 23:59 23:59 23:59 Intake Total 2100 450 890 Output Total 3200 1450 Balance 2100 -2750 -560 Weight 52.707 kg 56.245 kg Gen: NAD at rest Heart: RRR Lung: scattered rhonchi Abd: soft, nontender Ext: no edema CBC, BMP 01/05/19 05:10 01/05/19 05:10 Active Medications Atorvastatin Calcium (Lipitor -) 20 mg PO HS [facility] Last Admin: 01/04/19 21:32 Dose: 20 mg Magnesium Oxide (Mag-Ox -) 800 mg PO DAILY [facility] Stop: 01/07/19 10:01 Last Admin: 01/05/19 10:12 Dose: 800 mg Metoprolol Succinate (Toprol Xl -) 25 mg PO DAILY [facility] Last Admin: 01/05/19 10:12 Dose: Not Given Pantoprazole Sodium (Protonix Iv) 40 mg IVPUSH BID [facility] Last Admin: 01/05/19 10:12 Dose: 40 mg ASSESSMENT AND PLAN: Altered Mental Status likely from benzodiazepine Acute on Chronic Diastolic Heart Failure +Troponins likely Demand Ischemia r/o UTI Scleroderma HTN Hyperlipidemia Atrial Fibrillation vs PACs - lasix as needed - monitor urine output, creatinine - anticoagulation per cardiology - rate controlled - O2 to keep Spo2 >90% - aspiration precautions - monitor H/H - inhaled bronchodilators - echocardiogram - DVT prophylaxis - can monitor on telemetry
--- NOTE | 2019-01-05 12:29 | ECHO ---
Name: SILAS SANCHEZ Exam:Adult Echocardiogram Study Date: 01/05/2019 08:05 AM Age: 83 yrs Reason For Study: LV Function Height: 64 in Weight: 124 lb BSA: 1.6 m2 BP: 90/53 mmHg MMode/2D Measurements & Calculations IVSd: 0.87 cm Ao root diam: 3.0 cm LVIDd: 4.8 cm LA dimension: 3.8 cm LVIDs: 3.1 cm LVPWd: 1.1 cm EDV(Teich): 107.7 ml LVOT diam: 1.9 cm ESV(Teich): 37.5 ml Doppler Measurements & Calculations MV E max luke: 152.2 cm/sec MVA(VTI): 1.1 cm2 MV A max luke: 77.5 cm/sec MV V2 max: 167.4 cm/sec MV E/A: 2.0 MV max P.2 mmHg MV dec time: 0.21 sec MV V2 mean: 97.6 cm/sec MV mean P.4 mmHg MV V2 VTI: 50.3 cm Ao V2 max: 177.6 cm/sec LV V1 max P.1 mmHg Ao max P.6 mmHg LV V1 mean P.5 mmHg Ao V2 mean: 123.8 cm/sec LV V1 max: 113.1 cm/sec Ao mean P.9 mmHg LV V1 mean: 74.6 cm/sec Ao V2 VTI: 37.3 cm LV V1 VTI: 20.9 cm MAVIS(I,D): 1.5 cm2 MAVIS(V,D): 1.7 cm2 SV(LVOT): 57.0 ml TR max luke: 305.4 cm/sec TR max P.3 mmHg Med Peak E' Luke: 4.9 cm/sec Med E/e': 30.8 Lat Peak E' Luke: 4.9 cm/sec Lat E/e': 30.8 Procedure A complete two-dimensional transthoracic echocardiogram was performed (2D, M-mode, Doppler and color flow Doppler). Left Ventricle The left ventricle is normal in size. Left ventricular systolic function is normal. Ejection Fraction = 60- 65%. The transmitral spectral Doppler flow pattern is suggestive of restrictive physiology. No region al wall motion abnormalities noted. Right Ventricle The right ventricle is normal size. The right ventricular systolic function is normal. RV systolic TD I is 10 cm/s. Atria The left atrium is severely dilated. The right atrium is mildly dilated. Mitral Valve There is moderate to severe mitral annular calcification. There is mild mitral regurgitation. Tricuspid Valve The tricuspid valve is normal in structure and function. There is moderate tricuspid regurgitation. Aortic Valve There is moderate aortic sclerosis.;. Mild aortic regurgitation. Pulmonic Valve The pulmonic valve is not well visualized. Great Vessels The aortic root is normal size. Pericardium/Pleura There is no pericardial effusion. Interpretation Summary The left ventricle is normal in size. Left ventricular systolic function is normal. No regional wall motion abnormalities noted. Ejection Fraction = 60-65%. The transmitral spectral Doppler flow pattern is suggestive of restrictive physiology. The right ventricular systolic function is normal. The left atrium is severely dilated. The right atrium is mildly dilated. There is moderate to severe mitral annular calcification. There is mild mitral regurgitation. There is moderate tricuspid regurgitation. There is moderate aortic sclerosis.; Mild aortic regurgitation. There is no pericardial effusion. Js Shipley MD 01/05/2019 12:28 PM
[2019-01-05] MEDS: AMINO ACIDS/PROTEIN HYDROLYS 30 ML LIQUID.PKT PO SCH (18:50)
[2019-01-05] MEDS: ATORVASTATIN CA 20 MG TABLET (FP) PO SCH (22:20)
[2019-01-06 07:50] LABS: ALBUMIN 2.4 g/dl (3.4-5.0); BILIRUBIN,TOTAL 0.1 mg/dL (0.2-1); BLOOD UREA NITROGEN 33.1 mg/dL (7-18); CALCIUM 8.2 mg/dL (8.5-10.1); CREATININE 1.2 mg/dL (0.55-1.3); MAGNESIUM 1.9 mg/dL (1.8-2.4); PHOSPHOROUS 2.3 mg/dL (2.5-4.9); POTASSIUM 4.1 mmol/L (3.5-5.1); TOT PROT 5.7 g/dl (6.4-8.2)
--- NOTE | 2019-01-06 08:00 | PN ---
Physical Exam: SUBJECTIVE: Patient seen and examined Patient resting in bed nad. afebrile hemodynamically stable, AFrvr 130s on tele. denies cp, sob, palpitations, lightheadedness. denies melena, hematochezia. feels weak OBJECTIVE: Vital Signs Period Temp Pulse Resp BP Sys/Stewart Pulse Ox Last 24 Hr 97.6 F-98 F 97-113 2-18 83-111/53-69 94 GENERAL: The patient is awake, alert, and fully oriented, in no acute distress. HEAD: Normal with no signs of trauma. EYES: PERRL, extraocular movements intact, sclera anicteric, conjunctiva clear. No ptosis. ENT: moist mucous membranes. NECK: supple. LUNGS: Breath sounds equal, clear to auscultation bilaterally HEART: irregular, s1s2 ABDOMEN: Soft, nontender, nondistended, normoactive bowel sounds EXTREMITIES: 2+ pulses, warm, well-perfused, no edema. NEUROLOGICAL: Cranial nerves II through XII grossly intact. Normal speech, gait not observed. PSYCH: Normal mood, normal affect. SKIN: Warm, dry Laboratory Results - last 24 hr 01/05/19 01/05/19 01/06/19 05:10 08:45 06:18 Plt Count 299 D Manual Slide Review Y Sodium 138 Potassium 4.1 Chloride 105 Carbon Dioxide 25 Anion Gap 8 BUN 33.1 H Creatinine 1.2 Est GFR (CKD-EPI)AfAm 48.06 Est GFR (CKD-EPI)NonAf 41.47 Random Glucose 81 Calcium 8.2 L Phosphorus 2.3 L Magnesium 1.9 Total Bilirubin 0.1 L AST 21 ALT 39 Alkaline Phosphatase 68 Total Protein 5.7 L Albumin 2.4 L Stool Occult Blood Negative Active Medications Generic Name Dose Route Start Last Admin Trade Name Freq PRN Reason Stop Dose Admin Amino Acids 30 ml 01/05/19 17:30 01/05/19 18:50 Prosource No Carb Liquid Pkt PO 30 ml BID@0800,1730 ALANNA Administration Atorvastatin Calcium 20 mg 01/05/19 22:00 01/05/19 22:20 Lipitor - PO 20 mg HS ALANNA Administration Magnesium Oxide 800 mg 01/06/19 10:00 Mag-Ox - PO 01/07/19 10:01 DAILY ALANNA Metoprolol Succinate 25 mg 01/06/19 10:00 Toprol Xl - PO DAILY ALANNA Pantoprazole Sodium 40 mg 01/05/19 22:00 01/05/19 22:20 Protonix Iv IVPUSH 40 mg BID ALANNA Administration ASSESSMENT/PLAN: This is an 83 yo F with PMH of hyponatremia with syncope, htn, hld, Raynaud's, Scleroderma, bibems due to near syncope. Patient was sitting on the toilet earlier today, not straining, not actively passing urine or stool when she suddenly felt very dizzy, denies associated flushing, palpitations, cp, nausea. New AF RVR Acute HFPEF exacerbation Troponemia Acute hypoxic respiratory failure GIB w acute blood loss anemia Severe distal esophagitis near syncope R thumb lesion normocytic anemia Raynauds Scleroderma severe protein calorie malnutrition -discussed with cardiology, will dc bb and start cardizem -volume overload and sob due to volume resuscitation and possible af burden; continue lasix 20 iv d -troponemia likely demand, EKGs appreciated no evidence of asc -s/p EGD no occult bleeding seen -s/p 1 u pRBC, currently hemodynamically stable. hgb 8.9 -continue PPI bid x 2 w total -f/u Fe studies -GI note apprecited, AC is permissible. patient would like to discuss her options further with cardiology however is leaning toward no ac. -near syncope likely vasovagal or orthostatic due to dehydration; af and anemia may be contributing. -R thumb calcinosis Problem List - Problems (1) Finger lesion Code(s): L98.9 - DISORDER OF THE SKIN AND SUBCUTANEOUS TISSUE, UNSPECIFIED (2) Near syncope Code(s): R55 - SYNCOPE AND COLLAPSE (3) Raynauds disease Code(s): I73.00 - RAYNAUD'S SYNDROME WITHOUT GANGRENE (4) Scleroderma Code(s): M34.9 - SYSTEMIC SCLEROSIS, UNSPECIFIED (5) HLD (hyperlipidemia) Code(s): E78.5 - HYPERLIPIDEMIA, UNSPECIFIED (6) HTN (hypertension) Code(s): I10 - ESSENTIAL (PRIMARY) HYPERTENSION (7) UTI (urinary tract infection) Code(s): N39.0 - URINARY TRACT INFECTION, SITE NOT SPECIFIED (8) Severe protein-calorie malnutrition Code(s): E43 - UNSPECIFIED SEVERE PROTEIN-CALORIE MALNUTRITION Visit type - Emergency Visit Emergency Visit: Yes ED Registration Date: 12/30/18 Care time: The patient presented to the Emergency Department on the above date and was hospitalized for further evaluation of their emergent condition. - New Patient This patient is new to me today: No - Critical Care Critical Care patient: No - Discharge Referral Referred to [facility] Med P.C.: No
[2019-01-06] MEDS: AMINO ACIDS/PROTEIN HYDROLYS 30 ML LIQUID.PKT PO SCH ×2 (08:12→17:47)
[2019-01-06 08:28] LABS: HEMATOCRIT 26.6 % (32.4-45.2); HEMOGLOBIN 9.1 GM/dL (10.7-15.3); MCH 30.3 pg (25.7-33.7); MCHC 34.1 g/dl (32.0-36.0); MEAN CELL VOLUME 88.9 fl (80-96); MEAN PLT VOLUME 8.2 fl (7.5-11.1); PLATELET COUNT 321 K/MM3 (134-434); RDW 18.7 % (11.6-15.6)
[2019-01-06] MEDS: FUROSEMIDE 40 MG/4 ML INJECTABLE VIAL IVPUSH SCH (09:13)
[2019-01-06] MEDS ORDERED: metoPROLOL SUCCINATE 25 MG TAB.SR.24H (FP) PO SCH (10:00)
--- NOTE | 2019-01-06 10:27 | PN ---
Progress Note, Physician History of Present Illness: pulmonary alert,comfortable,no c/o sob,-cp - Current Medication List Current Medications: Active Medications Amino Acids (Prosource No Carb Liquid Pkt) 30 ml PO BID@0800,1730 [facility] Last Admin: 01/06/19 08:12 Dose: 30 ml Atorvastatin Calcium (Lipitor -) 20 mg PO HS [facility] Last Admin: 01/05/19 22:20 Dose: 20 mg Furosemide (Lasix Injection -) 20 mg IVPUSH DAILY [facility] Last Admin: 01/06/19 09:13 Dose: 20 mg Magnesium Oxide (Mag-Ox -) 800 mg PO DAILY [facility] Stop: 01/07/19 10:01 Metoprolol Succinate (Toprol Xl -) 25 mg PO DAILY [facility] Last Admin: 01/06/19 09:13 Dose: 25 mg Pantoprazole Sodium (Protonix Iv) 40 mg IVPUSH BID [facility] Last Admin: 01/05/19 22:20 Dose: 40 mg Potassium Phos/Sodium Phos (Phos-Nak Packet -) 1 packet PO BID [facility] Stop: 01/06/19 22:01 - Objective Vital Signs: Vital Signs Temperature 98 F 01/06/19 06:00 Pulse Rate 106 H 01/06/19 06:00 Respiratory Rate 18 01/06/19 06:00 Blood Pressure 106/69 01/06/19 06:00 O2 Sat by Pulse Oximetry (%) 94 L 01/05/19 08:12 Constitutional: Yes: Well Nourished, Calm Eyes: Yes: WNL HENT: Yes: WNL Neck: Yes: WNL Cardiovascular: Yes: Pulse Irregular, S1, S2 Respiratory: Yes: Rales (bobasilar rales) Gastrointestinal: Yes: Normal Bowel Sounds, Soft Extremities: Yes: WNL Edema: No Labs: CBC, BMP 01/06/19 06:18 01/06/19 06:18 - ....Imaging Chest X-ray: Report Reviewed, Image Reviewed (no change) Problem List - Problems (1) Acute on chronic diastolic CHF (congestive heart failure) Code(s): I50.33 - ACUTE ON CHRONIC DIASTOLIC (CONGESTIVE) HEART FAILURE (2) APC (atrial premature contractions) Code(s): I49.1 - ATRIAL PREMATURE DEPOLARIZATION (3) Chronic interstitial lung disease Code(s): J84.9 - INTERSTITIAL PULMONARY DISEASE, UNSPECIFIED (4) Scleroderma Code(s): M34.9 - SYSTEMIC SCLEROSIS, UNSPECIFIED (5) Atrial fibrillation Code(s): I48.91 - UNSPECIFIED ATRIAL FIBRILLATION Qualifiers: Atrial fibrillation type: chronic Qualified Code(s): I48.2 - Chronic atrial fibrillation (6) HLD (hyperlipidemia) Code(s): E78.5 - HYPERLIPIDEMIA, UNSPECIFIED (7) HTN (hypertension) Code(s): I10 - ESSENTIAL (PRIMARY) HYPERTENSION Assessment/Plan ASSESSMENT AND PLAN: Altered Mental Status likely from benzodiazepine improved Acute on Chronic Diastolic Heart Failure +Troponins likely Demand Ischemia r/o UTI Scleroderma HTN Hyperlipidemia Atrial Fibrillation vs PACs - lasix - monitor urine output, creatinine - anticoagulation per cardiology - rate controlled - O2 to keep Spo2 >90% - aspiration precautions - monitor H/H - inhaled bronchodilators - DVT prophylaxis DR GARDNER
--- NOTE | 2019-01-06 10:38 | PN ---
Teaching Attending Note Name of Resident: Kamila Greenberg ATTENDING PHYSICIAN STATEMENT I saw and evaluated the patient. I reviewed the resident's note and discussed the case with the resident. I agree with the resident's findings and plan as documented with exceptions below. SUBJECTIVE: Patient seen and examined. Overall feels better, no dyspnea, chest pain, palpitations or dizziness currently. No nausea, vomiting or abdominal pain. OBJECTIVE: Vital Signs Period Temp Pulse Resp BP Sys/Stewart Pulse Ox Last 24 Hr 97.6 F-98 F 97-113 2-18 83-111/53-69 Intake & Output 01/03/19 01/04/19 01/05/19 01/06/19 23:59 23:59 23:59 23:59 Intake Total 450 890 20 0 Output Total 3200 1450 800 Balance -2750 -560 20 -800 Weight 116 lb 3.2 oz 124 lb 124 lb 9.6 oz General: sitting in bed, more awake, at baseline, no acute distress CVS:S1S2 irregular, tachycardic Chest: Bibasilar rales, improved exam Abdomen:soft, NT, ND Extremities: trace pedal edema, ecchymotic areas and deformity including right thumb lesion unchanged Home Medications Medication Instructions Recorded Metoprolol Succinate [Toprol Xl] 50 mg PO DAILY 10/13/18 Valsartan 320 mg PO DAILY 10/13/18 Gabapentin [Neurontin -] 100 mg PO HS capsule 10/21/18 Atorvastatin Ca [Lipitor] 20 mg PO HS 12/17/18 Bethanechol Chloride 25 mg PO TID 12/22/18 Pantoprazole Sodium [Protonix] 40 mg PO BID #28 tablet. 01/02/19 predniSONE [Deltasone -] 5 mg PO DAILY #3 tablet 01/02/19 Active Medications Amino Acids (Prosource No Carb Liquid Pkt) 30 ml PO BID@0800,1730 [facility] Last Admin: 01/06/19 08:12 Dose: 30 ml Atorvastatin Calcium (Lipitor -) 20 mg PO HS [facility] Last Admin: 01/05/19 22:20 Dose: 20 mg Furosemide (Lasix Injection -) 20 mg IVPUSH DAILY [facility] Last Admin: 01/06/19 09:13 Dose: 20 mg Magnesium Oxide (Mag-Ox -) 800 mg PO DAILY [facility] Stop: 01/07/19 10:01 Metoprolol Succinate (Toprol Xl -) 25 mg PO DAILY [facility] Last Admin: 01/06/19 09:13 Dose: 25 mg Pantoprazole Sodium (Protonix Iv) 40 mg IVPUSH BID [facility] Last Admin: 01/05/19 22:20 Dose: 40 mg Potassium Phos/Sodium Phos (Phos-Nak Packet -) 1 packet PO BID [facility] Stop: 01/06/19 22:01 Laboratory Results - last 24 hr 01/06/19 01/06/19 01/06/19 06:18 06:18 06:18 WBC 10.0 RBC 3.00 L Hgb 9.1 L Hct 26.6 L MCV 88.9 MCH 30.3 MCHC 34.1 RDW 18.7 H Plt Count 321 MPV 8.2 Sodium 138 Potassium 4.1 Chloride 105 Carbon Dioxide 25 Anion Gap 8 BUN 33.1 H Creatinine 1.2 Est GFR (CKD-EPI)AfAm 48.06 Est GFR (CKD-EPI)NonAf 41.47 Random Glucose 81 Calcium 8.2 L Phosphorus 2.3 L Magnesium 1.9 Ferritin 162.3 Total Bilirubin 0.1 L AST 21 ALT 39 Alkaline Phosphatase 68 Total Protein 5.7 L Albumin 2.4 L Vitamin B12 431 Serum Folate 9 Telemetry: Afib with RVR up 130s, intermittent ASSESSMENT AND PLAN: 83 yof with PMhx of Scleroderma, Atrial fibrillation, not on AC but on plavix, raynaud's phenomenon, ILD on imaging in 2012Chronic hyponatremia/SIADH, HTN, HLD , OA, recurrent stasis ulcer RLE since 02/2018 being followed at wound care ( With Dr. Hernández and Dr. Austin), recent admissions to [facility] in 09/2018 with cellulitis/HCAP, then 11/2018 with weakness suspected from hypovolumia/ steroid induced myopathy readmitted with near syncope after straining on toilet and found pos FOBT. -Acute diastolic heart failure exacerbation, suspect from volume resuscitation -Acute hypoxic respiratory distress, suspect from above and known underlying poor reserve from ILD, less likely infectious process -AMS, likely toxic metabolic encephalopathy from above/Ativan -Acute on chronic anemia, ?occult GI bleed -Elevated troponin, suspect demand induced NSTEMI from above. 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 Lasix 20 mg IV daily as tolerated. Repeat 2D echo noted. BP improved. Now Afib with Intermittent RVR up 130s. Discussed with Dr. Serrato in detail, plan for was to get her off meteprolol. ?start PO cardizem. Also discussed about GI recs and AC. Ideally need 1-2 weeks of PPI prior to starting AC per GI and needs close montoring. Dr. Serrato to discuss with patient, will follow up. Hold ARB/amlodipine to allow room for diuresis and rate control. CT brain neg for acute process. Avoid benzos/sedatives. Trop flat. Monitor. s/p 1 unit PRBC 01/01 with appropriate response. No gross evidence of bleed, GI input noted, Continue PPI BID and monitor h/h for now. Address possible colonoscopy with GI outpatient once active respiratory concerns improved. 2D echo/Carotid duplex noted. ID input noted, monitor off abx for asymptomatic bacteruria. Transient emperic bactrim in ICU, d/dionte 01/05, monitor clinically. ESR/CRP noted however non specific in the setting of known rheumatological disease. WBC improved, intermittently high, suspect steroid mediated.Off prednisone.Outpatient rheumatology follow up. MRI right hand noted, discussed with Dr. Stoll, hold off on antibiotics, recommend follow up at [facility] in future if concerns. Continue statin. Patient now agrees to SNF. Plan for SNF once medical symptoms improve. DVTPPX SCDs Plan discussed with patient and nursing, all questions answered.Care co- ordinated with Dr. Serrato.
[2019-01-06] MEDS: PANTOPRAZOLE SODIUM 40 MG VIAL IVPUSH SCH ×2 (10:45→22:25)
[2019-01-06] MEDS: MAGNESIUM OXIDE 400 MG TABLET (FP) PO SCH (10:45)
[2019-01-06] MEDS: NAPH,MB-DB/K PH,MBDB POWDER PACKET PO SCH ×2 (10:45→22:24)
--- NOTE | 2019-01-06 11:33 | PN ---
Progress Note, Physician Chief Complaint: Pt alert; sitting up; anxious, and not sure if she should go home or to a rehab facility. 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 She notes her nurse has noticed her stool has been black for the past week, which she believes is related to taking iron daily. Today, patient notes she began feeling lightheaded , "like she was going to pass out," upon getting up and trying to go to the bathroom 2.5 hours ago (she ambulates with a walker at baseline). She reports immediately sitting down as she thought she was going to fall and her symptoms self-resolved after 15 minutes. As per patients daughter, she notes the patient has had symptoms similar to this before when she has had an UTI. Patient endorses mild chills, diaphoresis, and generalized weakness while in the ED. She is currently on a tapered dose of Prednisone for her Raynaud's but denies currently being on antibiotics for last UTI. Pt denies any dysarthria, headache, neck pain, diplopia, numbness/tingling/weakness, cp, back pain. The patient denies shortness of breath, and headache. Denies fever, nausea, vomit, diarrhea and constipation. Denies dysuria, frequency, urgency and hematuria. Allergies: Aspirin, cephalexin, ciprofloxacin, penicillins, quinolones Past surgical history: appendectomy, abdominal surgery, orthopedic surgery Social history: No reported PCP: Dr. Enmanuel Girard - Current Medication List Current Medications: Active Medications Amino Acids (Prosource No Carb Liquid Pkt) 30 ml PO BID@0800,1730 [facility] Last Admin: 01/06/19 08:12 Dose: 30 ml Atorvastatin Calcium (Lipitor -) 20 mg PO HS [facility] Last Admin: 01/05/19 22:20 Dose: 20 mg Furosemide (Lasix Injection -) 20 mg IVPUSH DAILY [facility] Last Admin: 01/06/19 09:13 Dose: 20 mg Magnesium Oxide (Mag-Ox -) 800 mg PO DAILY [facility] Stop: 01/07/19 10:01 Last Admin: 01/06/19 10:45 Dose: 800 mg Metoprolol Succinate (Toprol Xl -) 25 mg PO DAILY [facility] Last Admin: 01/06/19 09:13 Dose: 25 mg Pantoprazole Sodium (Protonix Iv) 40 mg IVPUSH BID [facility] Last Admin: 01/06/19 10:45 Dose: 40 mg Potassium Phos/Sodium Phos (Phos-Nak Packet -) 1 packet PO BID [facility] Stop: 01/06/19 22:01 Last Admin: 01/06/19 10:45 Dose: 1 packet - Objective Vital Signs: Vital Signs Temperature 98 F 01/06/19 06:00 Pulse Rate 106 H 01/06/19 06:00 Respiratory Rate 18 01/06/19 06:00 Blood Pressure 106/69 01/06/19 06:00 O2 Sat by Pulse Oximetry (%) 94 L 01/05/19 08:12 Constitutional: Yes: Anxious, Thin Eyes: Yes: WNL HENT: Yes: WNL Neck: Yes: WNL Cardiovascular: Yes: Pulse Irregular, S1 (varies in intensity), S2 Respiratory: Yes: Diminished Gastrointestinal: Yes: Soft ...Rectal Exam: Yes: Deferred Genitourinary: No: Anuria Breast(s): Yes: WNL Musculoskeletal: Yes: Muscle Weakness Extremities: Yes: Cool Edema: No Peripheral Pulses WNL: No Peripheral Pulses: Left Doralis Pedis: 1+, Right Dorsalis Pedis: 1+ Integumentary: Yes: Other (blanched , deformed fingers) Neurological: Yes: Alert, Oriented, Weakness Psychiatric: Yes: Alert, Oriented, Other (anxiety) Labs: CBC, BMP 01/06/19 06:18 01/06/19 06:18 Abnormal Lab Results 01/06/19 01/06/19 06:18 06:18 RBC 3.00 L Hgb 9.1 L Hct 26.6 L RDW 18.7 H BUN 33.1 H Calcium 8.2 L Phosphorus 2.3 L Total Bilirubin 0.1 L Total Protein 5.7 L Albumin 2.4 L Problem List - Problems (1) Anemia Code(s): D64.9 - ANEMIA, UNSPECIFIED (2) Finger lesion Assessment/Plan: 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 (Any potential therapy should take into consideration pt's scleroderma). Code(s): L98.9 - DISORDER OF THE SKIN AND SUBCUTANEOUS TISSUE, UNSPECIFIED (3) GI bleed Code(s): K92.2 - GASTROINTESTINAL HEMORRHAGE, UNSPECIFIED (4) Lightheadedness Assessment/Plan: orthostatic VS maintain hydration. F/u electrolytes. 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 Keep K+ 4-4.5. Code(s): E83.42 - HYPOMAGNESEMIA (14) Chronic interstitial lung disease Assessment/Plan: f/u with commercial construction project manager. Code(s): J84.9 - INTERSTITIAL PULMONARY DISEASE, UNSPECIFIED (15) APC (atrial premature contractions) Assessment/Plan: Chart reviewed. Previous EKGs dating to 2011 reviewed: no evidence of atrial fibrillation (even with one EKG "computer reading" of AF that, when perused, was actually NSR with APCs). GI workup noted: pt is at elevated risk for GI bleed. In addition, hx of hyponatremia, multiple falls, and now with lightheadedness. No hx CAD. Discussed with Ms. Dillon, Dr. Enmanuel Girard (PMD) and Dr. Tena. no anticoagulant is needed, and clopidgrel will be stopped. Telemetry: NSR: frequent APCs. Recommend gradually discontinuing metoprolol (scleroderma; Raynaud's). Pt now has developed atrial fibrillation. ECHO: normal LVEF: severely dilated LA, restrictive physiology. Will taper off metoprolol ER (Raynaud's) and start [id number] for HR control. Problematic starting anticoagulant; hematology and GI input appreciated. Pt has been on a PPI for 7 days; Pros and cons of starting an anticoagulatn were discussed with pt, and will be detailed with daughter. Treating a bleed may prove difficult in pt's condition; at the same time, would want to avoid a CVA. Code(s): I49.1 - ATRIAL PREMATURE DEPOLARIZATION (16) Atrial fibrillation Assessment/Plan: Please see under "APCS" Code(s): I48.91 - UNSPECIFIED ATRIAL FIBRILLATION Qualifiers: Atrial fibrillation type: chronic Qualified Code(s): I48.2 - Chronic atrial fibrillation
[2019-01-06] MEDS: dilTIAZem HCL 30 MG TABLET (FP) PO SCH ×2 (12:30→17:47)
--- NOTE | 2019-01-06 12:41 | EKG ---
Test Reason : Blood Pressure : / mmHG Vent. Rate : 127 BPM Atrial Rate : 125 BPM P-R Int : 000 ms QRS Dur : 084 ms QT Int : 322 ms P-R-T Axes : 000 -28 147 degrees QTc Int : 467 ms ATRIAL FIBRILLATION WITH RAPID VENTRICULAR RESPONSE WITH PREMATURE VENTRICULAR OR ABERRANTLY CONDUCTED COMPLEXES ABNORMAL ECG WHEN COMPARED WITH ECG OF 04-JAN-2019 08:43, NO SIGNIFICANT CHANGE WAS FOUND Confirmed by César Almaraz MD ([id number]) on 01/06/2019 12:40:51 PM Referred By: Saskia MARS Confirmed By:César Almaraz MD
--- NOTE | 2019-01-06 14:23 | PN ---
Progress Note (short form) - Note Progress Note: Patient states breathing improved. We did discuss colonoscopy for further evaluation of anemia. She explained that yes, someone had discussed this with her but that she does not want to have one. Recall as needed. Will sign off.
[2019-01-06] MEDS: ATORVASTATIN CA 20 MG TABLET (FP) PO SCH (22:24)
[2019-01-07] MEDS: dilTIAZem HCL 30 MG TABLET (FP) PO SCH ×5 (00:03→23:01)
[2019-01-07 04:10] LABS: SERUM IRON SATURATION 16 % (15-55); TOTAL IRON BINDING CAPACITY 231 ug/dL (250-450); UIBC 195 ug/dL (118-369)
--- NOTE | 2019-01-07 07:33 | PN ---
Physical Exam: SUBJECTIVE: Patient seen and examined Patient resting in bed nad. afebrile hemodynamically stable, AF rate under 110 bpm on tele. denies cp, sob, palpitations, lightheadedness. denies melena, hematochezia. feels weak, was unable to do pt today due to lightheadedness OBJECTIVE: Vital Signs Period Temp Pulse Resp BP Sys/Stewart Pulse Ox Last 24 Hr 97.4 F-99.3 F 86-135 18-20 105-140/57-80 GENERAL: The patient is awake, alert, and fully oriented, in no acute distress. HEAD: Normal with no signs of trauma. EYES: PERRL, extraocular movements intact, sclera anicteric, conjunctiva clear. No ptosis. ENT: moist mucous membranes. NECK: supple. LUNGS: bibasilar ronchi HEART: irregular, s1s2 ABDOMEN: Soft, nontender, nondistended, normoactive bowel sounds EXTREMITIES: 2+ pulses, warm, well-perfused, no edema. NEUROLOGICAL: Cranial nerves II through XII grossly intact. Normal speech, gait not observed. PSYCH: Normal mood, normal affect. SKIN: Warm, dry Laboratory Results - last 24 hr 01/03/19 01/06/19 01/06/19 15:50 06:18 06:18 WBC 10.0 RBC 3.00 L Hgb 9.1 L Hct 26.6 L MCV 88.9 MCH 30.3 MCHC 34.1 RDW 18.7 H Plt Count 321 MPV 8.2 Sodium 138 Potassium 4.1 Chloride 105 Carbon Dioxide 25 Anion Gap 8 BUN 33.1 H Creatinine 1.2 Est GFR (CKD-EPI)AfAm 48.06 Est GFR (CKD-EPI)NonAf 41.47 Random Glucose 81 Calcium 8.2 L Phosphorus 2.3 L Magnesium 1.9 Iron TIBC Iron Saturation Transferrin Ferritin Total Bilirubin 0.1 L AST 21 ALT 39 Alkaline Phosphatase 68 Total Protein 5.7 L Albumin 2.4 L Vitamin B12 Serum Folate Blood Type B NEGATIVE Antibody Screen Negative Crossmatch See Detail 01/06/19 01/06/19 06:18 06:18 WBC RBC Hgb Hct MCV MCH MCHC RDW Plt Count MPV Sodium Potassium Chloride Carbon Dioxide Anion Gap BUN Creatinine Est GFR (CKD-EPI)AfAm Est GFR (CKD-EPI)NonAf Random Glucose Calcium Phosphorus Magnesium Iron 36 TIBC 231 L Iron Saturation 16 Transferrin 180 L Ferritin 162.3 Total Bilirubin AST ALT Alkaline Phosphatase Total Protein Albumin Vitamin B12 431 Serum Folate 9 Blood Type Antibody Screen Crossmatch Active Medications Generic Name Dose Route Start Last Admin Trade Name Ethan PRN Reason Stop Dose Admin Amino Acids 30 ml 01/05/19 17:30 01/06/19 17:47 Prosource No Carb Liquid Pkt PO 30 ml BID@0800,1730 [facility] Administration Atorvastatin Calcium 20 mg 01/05/19 22:00 01/06/19 22:24 Lipitor - PO 20 mg HS [facility] Administration Diltiazem HCl 30 mg 01/06/19 12:00 01/07/19 05:49 Cardizem - PO 30 mg Q6HPO [facility] Administration Furosemide 20 mg 01/06/19 10:00 01/06/19 09:13 Lasix Injection - IVPUSH 20 mg DAILY [facility] Administration Magnesium Oxide 800 mg 01/06/19 10:00 01/06/19 10:45 Mag-Ox - PO 01/07/19 10:01 800 mg DAILY [facility] Administration Pantoprazole Sodium 40 mg 01/05/19 22:00 01/06/19 22:25 Protonix Iv IVPUSH 40 mg BID [facility] Administration ASSESSMENT/PLAN: This is an 83 yo F with PMH of hyponatremia with syncope, htn, hld, Raynaud's, Scleroderma, bibems due to near syncope. Patient was sitting on the toilet earlier today, not straining, not actively passing urine or stool when she suddenly felt very dizzy, denies associated flushing, palpitations, cp, nausea. New AF RVR Acute HFPEF exacerbation Troponemia Acute hypoxic respiratory failure GIB w acute blood loss anemia Severe distal esophagitis near syncope R thumb lesion normocytic anemia Raynauds Scleroderma severe protein calorie malnutrition -rate controlled on cardizem -volume overload and sob due to volume resuscitation and possible af burden; continue lasix 20 iv d -s/p EGD no occult bleeding seen -hemodynamically stable. hgb 8.8 -continue PPI bid x 2 w total -f/u Fe studies -GI note apprecited, AC is permissible. patient declines ac -patient declines colonoscopy -near syncope likely vasovagal or orthostatic due to dehydration; af and anemia may be contributing. -R thumb calcinosis Problem List - Problems (1) Finger lesion Code(s): L98.9 - DISORDER OF THE SKIN AND SUBCUTANEOUS TISSUE, UNSPECIFIED (2) Near syncope Code(s): R55 - SYNCOPE AND COLLAPSE (3) Raynauds disease Code(s): I73.00 - RAYNAUD'S SYNDROME WITHOUT GANGRENE (4) Scleroderma Code(s): M34.9 - SYSTEMIC SCLEROSIS, UNSPECIFIED (5) HLD (hyperlipidemia) Code(s): E78.5 - HYPERLIPIDEMIA, UNSPECIFIED (6) HTN (hypertension) Code(s): I10 - ESSENTIAL (PRIMARY) HYPERTENSION (7) UTI (urinary tract infection) Code(s): N39.0 - URINARY TRACT INFECTION, SITE NOT SPECIFIED (8) Severe protein-calorie malnutrition Code(s): E43 - UNSPECIFIED SEVERE PROTEIN-CALORIE MALNUTRITION Visit type - Emergency Visit Emergency Visit: Yes ED Registration Date: 12/30/18 Care time: The patient presented to the Emergency Department on the above date and was hospitalized for further evaluation of their emergent condition. - New Patient This patient is new to me today: No - Critical Care Critical Care patient: No - Discharge Referral Referred to [facility] No
[2019-01-07 07:58] LABS: BASO % 0.2 % (0-2.0); EOS % 0.3 % (0-4.5); HEMATOCRIT 26.4 % (32.4-45.2); HEMOGLOBIN 8.8 GM/dL (10.7-15.3); LYMPH % 20.8 % (8-40); MCH 29.7 pg (25.7-33.7); MCHC 33.4 g/dl (32.0-36.0); MEAN CELL VOLUME 88.9 fl (80-96); MEAN PLT VOLUME 8.3 fl (7.5-11.1); MONO % 5.6 % (3.8-10.2); NEUT % 73.1 % (42.8-82.8); PLATELET COUNT 299 K/MM3 (134-434); RBC 2.97 M/mm3 (3.60-5.2); RDW 18.4 % (11.6-15.6); WHITE BLOOD COUNT 9.3 K/mm3 (4.0-10.0)
[2019-01-07 09:03] LABS: BLOOD UREA NITROGEN 35.7 mg/dL (7-18); CALCIUM 7.7 mg/dL (8.5-10.1); CREATININE 1.1 mg/dL (0.55-1.3); MAGNESIUM 1.9 mg/dL (1.8-2.4); PHOSPHOROUS 2.7 mg/dL (2.5-4.9)
--- NOTE | 2019-01-07 10:50 | PN ---
Progress Note, Physician History of Present Illness: PULMONARY ALERT,STILL C/O MILD SOB,COUGH,-CP - Current Medication List Current Medications: Active Medications Amino Acids (Prosource No Carb Liquid Pkt) 30 ml PO BID@0800,1730 [facility] Last Admin: 01/06/19 17:47 Dose: 30 ml Atorvastatin Calcium (Lipitor -) 20 mg PO HS [facility] Last Admin: 01/06/19 22:24 Dose: 20 mg Diltiazem HCl (Cardizem -) 30 mg PO Q6HPO [facility] Last Admin: 01/07/19 05:49 Dose: 30 mg Furosemide (Lasix Injection -) 20 mg IVPUSH DAILY [facility] Last Admin: 01/06/19 09:13 Dose: 20 mg Pantoprazole Sodium (Protonix Iv) 40 mg IVPUSH BID [facility] Last Admin: 01/06/19 22:25 Dose: 40 mg - Objective Vital Signs: Vital Signs Temperature 99.3 F 01/07/19 05:00 Pulse Rate 86 01/07/19 05:00 Respiratory Rate 19 01/07/19 05:00 Blood Pressure 117/57 L 01/07/19 05:00 O2 Sat by Pulse Oximetry (%) 94 L 01/05/19 08:12 Constitutional: Yes: Calm, Thin Eyes: Yes: WNL HENT: Yes: WNL Neck: Yes: WNL Cardiovascular: Yes: Pulse Irregular, S1, S2 Respiratory: Yes: Rales (BILATERAL CRACKLES) Gastrointestinal: Yes: Normal Bowel Sounds, Soft Extremities: Yes: WNL Edema: No Labs: CBC, BMP 01/07/19 05:49 01/07/19 05:49 - ....Imaging Chest X-ray: Report Reviewed, Image Reviewed Problem List - Problems (1) Acute on chronic diastolic CHF (congestive heart failure) Code(s): I50.33 - ACUTE ON CHRONIC DIASTOLIC (CONGESTIVE) HEART FAILURE (2) APC (atrial premature contractions) Code(s): I49.1 - ATRIAL PREMATURE DEPOLARIZATION (3) Chronic interstitial lung disease Code(s): J84.9 - INTERSTITIAL PULMONARY DISEASE, UNSPECIFIED (4) Scleroderma Code(s): M34.9 - SYSTEMIC SCLEROSIS, UNSPECIFIED (5) Atrial fibrillation Code(s): I48.91 - UNSPECIFIED ATRIAL FIBRILLATION Qualifiers: Atrial fibrillation type: chronic Qualified Code(s): I48.2 - Chronic atrial fibrillation (6) HLD (hyperlipidemia) Code(s): E78.5 - HYPERLIPIDEMIA, UNSPECIFIED (7) HTN (hypertension) Code(s): I10 - ESSENTIAL (PRIMARY) HYPERTENSION Assessment/Plan ASSESSMENT AND PLAN: Altered Mental Status likely from benzodiazepine improved Acute on Chronic Diastolic Heart Failure +Troponins likely Demand Ischemia Scleroderma HTN Hyperlipidemia Atrial Fibrillation vs PACs - continue lasix - monitor urine output, creatinine - rate controlled - O2 to keep Spo2 >90% - aspiration precautions - monitor H/H - inhaled bronchodilators - DVT prophylaxis DR GARDNER
[2019-01-07] MEDS: AMINO ACIDS/PROTEIN HYDROLYS 30 ML LIQUID.PKT PO SCH ×2 (11:15→18:15)
[2019-01-07] MEDS: FUROSEMIDE 40 MG/4 ML INJECTABLE VIAL IVPUSH SCH (11:16)
[2019-01-07] MEDS: MAGNESIUM OXIDE 400 MG TABLET (FP) PO SCH (11:16)
[2019-01-07] MEDS: PANTOPRAZOLE SODIUM 40 MG VIAL IVPUSH SCH ×2 (11:19→22:51)
--- NOTE | 2019-01-07 11:58 | PN ---
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 She notes her nurse has noticed her stool has been black for the past week, which she believes is related to taking iron daily. Today, patient notes she began feeling lightheaded , "like she was going to pass out," upon getting up and trying to go to the bathroom 2.5 hours ago (she ambulates with a walker at baseline). She reports immediately sitting down as she thought she was going to fall and her symptoms self-resolved after 15 minutes. As per patients daughter, she notes the patient has had symptoms similar to this before when she has had an UTI. Patient endorses mild chills, diaphoresis, and generalized weakness while in the ED. She is currently on a tapered dose of Prednisone for her Raynaud's but denies currently being on antibiotics for last UTI. Pt denies any dysarthria, headache, neck pain, diplopia, numbness/tingling/weakness, cp, back pain. The patient denies shortness of breath, and headache. Denies fever, nausea, vomit, diarrhea and constipation. Denies dysuria, frequency, urgency and hematuria. Allergies: Aspirin, cephalexin, ciprofloxacin, penicillins, quinolones Past surgical history: appendectomy, abdominal surgery, orthopedic surgery Social history: No reported PCP: Dr. Enmanuel Girard Hospital course ; 83yo female with h/o Scleroderma on chronic prednisone, HTN, hyperlipidemia, hyponatremia who was admitted for near syncope. Treated for dehydration with IVF. Was to be discharged last night, had a MRI done with ativan given. This AM, somnolent, lethargic but arousable and increasing shortness of breath. CXR today suggestive of pulmonary edema and bloodwork showing dropping H/H, transfered to the ICU for closer monitoring. - Current Medication List Current Medications: Active Medications Amino Acids (Prosource No Carb Liquid Pkt) 30 ml PO BID@0800,1730 [facility] Last Admin: 01/07/19 11:15 Dose: 30 ml Atorvastatin Calcium (Lipitor -) 20 mg PO HS [facility] Last Admin: 01/06/19 22:24 Dose: 20 mg Diltiazem HCl (Cardizem -) 30 mg PO Q6HPO [facility] Last Admin: 01/07/19 11:16 Dose: 30 mg Furosemide (Lasix Injection -) 20 mg IVPUSH DAILY [facility] Last Admin: 01/07/19 11:16 Dose: 20 mg Pantoprazole Sodium (Protonix Iv) 40 mg IVPUSH BID [facility] Last Admin: 01/07/19 11:19 Dose: 40 mg - Objective Vital Signs: Vital Signs Temperature 99.3 F 01/07/19 05:00 Pulse Rate 86 01/07/19 05:00 Respiratory Rate 19 01/07/19 05:00 Blood Pressure 117/57 L 01/07/19 05:00 O2 Sat by Pulse Oximetry (%) 94 L 01/05/19 08:12 Eyes: Yes: WNL, Conjunctiva Clear, EOM Intact HENT: Yes: WNL, Atraumatic, Normocephalic Neck: Yes: WNL, Supple, Trachea Midline Cardiovascular: Yes: WNL, Regular Rate and Rhythm Respiratory: Yes: WNL, Regular, CTA Bilaterally Gastrointestinal: Yes: WNL, Normal Bowel Sounds Genitourinary: Yes: WNL Musculoskeletal: Yes: WNL Extremities: Yes: WNL Edema: No Integumentary: Yes: WNL Neurological: Yes: WNL, Alert, Oriented ...Motor Strength: WNL Psychiatric: Yes: WNL Labs: CBC, BMP 01/07/19 05:49 01/07/19 05:49 Assessment/Plan Problems (1) APC (atrial premature contractions) Assessment/Plan: A fib rate controlled on lopressor would benefit from ac when stable/safe to use from GI point of view Code(s): I49.1 - ATRIAL PREMATURE DEPOLARIZATION (2) Anemia Code(s): D64.9 - ANEMIA, UNSPECIFIED (3) Finger lesion Assessment/Plan: 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 (Any potential therapy should take into consideration pt's scleroderma). Code(s): L98.9 - DISORDER OF THE SKIN AND SUBCUTANEOUS TISSUE, UNSPECIFIED (4) GI bleed Code(s): K92.2 - GASTROINTESTINAL HEMORRHAGE, UNSPECIFIED (5) Lightheadedness Assessment/Plan: orthostatic VS maintain hydration. F/u electrolytes. Code(s): R42 - DIZZINESS AND GIDDINESS (6) Failure to thrive Code(s): AHC1122 - (7) HLD (hyperlipidemia) Code(s): E78.5 - HYPERLIPIDEMIA, UNSPECIFIED (8) HTN (hypertension) Assessment/Plan: on valsartan. On metoprolol (consider changing due to peripheral abnormalities related to scleroderma, Rayaud's). Code(s): I10 - ESSENTIAL (PRIMARY) HYPERTENSION (9) Pleural effusion Code(s): J90 - PLEURAL EFFUSION, NOT ELSEWHERE CLASSIFIED (10) Scleroderma Assessment/Plan: CREST syndrome. Recommend discontinuation of metoprolol (scleroderma; Raynaud's). Pt is depressed because "they can't do anything about it". 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 Code(s): F32.9 - MAJOR DEPRESSIVE DISORDER, SINGLE EPISODE, UNSPECIFIED (14) Hypomagnesemia Assessment/Plan: replete, and keep level 2-2.4. Keep K+ 4-4.5. Code(s): E83.42 - HYPOMAGNESEMIA (15) Chronic interstitial lung disease Assessment/Plan: f/u with systematic theology professor. Code(s): J84.9 - INTERSTITIAL PULMONARY DISEASE, UNSPECIFIED CXR increased markings cont respiratory support agree with danilo DAS time spent 37 min
[2019-01-07] MEDS: POLYETHYLENE GLYCOL 3350 119 GM BTL PO SCH (13:32)
--- NOTE | 2019-01-07 13:34 | PN ---
Teaching Attending Note Name of Resident: Kamila Greenberg ATTENDING PHYSICIAN STATEMENT I saw and evaluated the patient. I reviewed the resident's note and discussed the case with the resident. I agree with the resident's findings and plan as documented. SUBJECTIVE: Ms Dillon says she feels bad, that everything is wrong. Says she is still very weak. Denies cp, sob, n/v. OBJECTIVE: Last Vital Signs Temp Pulse Resp BP Pulse Ox 37.4 C 86 19 117/57 L 94 L 01/07/19 05:00 01/07/19 05:00 01/07/19 05:00 01/07/19 05:00 01/05/19 08:12 Gen: nad Pulm: ctab w/o w/r/r CV: irreg irreg w/o m/r/g Abd: +bs, s/nt/nd Ext: no c/c/e CBC, BMP 01/07/19 05:49 01/07/19 05:49 ASSESSMENT AND PLAN: (1) Near syncope -fully worked up -has not recurred Code(s): R55 - SYNCOPE AND COLLAPSE (2) Finger lesion -MRI finger negative Code(s): L98.9 - DISORDER OF THE SKIN AND SUBCUTANEOUS TISSUE, UNSPECIFIED (3) UTI (urinary tract infection) -had episode of retention last night -recheck UA with urine culture as may now have symptoms from chronic colonization Code(s): N39.0 - URINARY TRACT INFECTION, SITE NOT SPECIFIED (4) Atrial fibrillation -had atrial fibrillation with rvr -seen by cardiology -cannot anticoagulate secondary to GI bleed -change metoprolol to diltiazem -titrate diltiazem for better control Code(s): I48.91 - UNSPECIFIED ATRIAL FIBRILLATION Qualifiers: Atrial fibrillation type: chronic Qualified Code(s): I48.2 - Chronic atrial fibrillation (5) HLD (hyperlipidemia) -continue statin Code(s): E78.5 - HYPERLIPIDEMIA, UNSPECIFIED (6) HTN (hypertension) -continue cardizem Code(s): I10 - ESSENTIAL (PRIMARY) HYPERTENSION (7) Scleroderma -finished prednisone taper Code(s): M34.9 - SYSTEMIC SCLEROSIS, UNSPECIFIED (8) Steroid-induced myopathy -now off of steroids Code(s): G72.0 - DRUG-INDUCED MYOPATHY; T38.0X5A - ADVERSE EFFECT OF GLUCOCORT/ SYNTH ANALOG, INIT (9) Weakness -chronic -worsened with afib Code(s): R53.1 - WEAKNESS (10) GI bleed -EGD performed this admission -patient declines colonoscopy Code(s): K92.2 - GASTROINTESTINAL HEMORRHAGE, UNSPECIFIED
--- NOTE | 2019-01-07 13:58 | EKG ---
Test Reason : Blood Pressure : / mmHG Vent. Rate : 098 BPM Atrial Rate : 312 BPM P-R Int : 000 ms QRS Dur : 088 ms QT Int : 358 ms P-R-T Axes : 000 -25 139 degrees QTc Int : 457 ms ATRIAL FIBRILLATION WITH PREMATURE VENTRICULAR OR ABERRANTLY CONDUCTED COMPLEXES ABNORMAL ECG WHEN COMPARED WITH ECG OF 06-JAN-2019 09:19, NO SIGNIFICANT CHANGE WAS FOUND Confirmed by ANDRADE GARCIA MD ([id number]) on 01/07/2019 1:58:26 PM Referred By: JOSE ZAFAR DR Confirmed By:ANDRADE GARCIA MD
[2019-01-07] MEDS: ATORVASTATIN CA 20 MG TABLET (FP) PO SCH (22:51)
[2019-01-08] MEDS: dilTIAZem HCL 30 MG TABLET (FP) PO SCH ×3 (06:55→18:03)
[2019-01-08 08:54] LABS: HEMATOCRIT 25.1 % (32.4-45.2); HEMOGLOBIN 8.6 GM/dL (10.7-15.3); MCH 30.3 pg (25.7-33.7); MCHC 34.1 g/dl (32.0-36.0); MEAN CELL VOLUME 88.9 fl (80-96); RBC 2.82 M/mm3 (3.60-5.2); RDW 18.5 % (11.6-15.6); WHITE BLOOD COUNT 10.1 K/mm3 (4.0-10.0)
[2019-01-08 08:56] LABS: BLOOD UREA NITROGEN 31.8 mg/dL (7-18); CALCIUM 8.3 mg/dL (8.5-10.1); MAGNESIUM 2.2 mg/dL (1.8-2.4); PHOSPHOROUS 2.9 mg/dL (2.5-4.9); POTASSIUM 4.2 mmol/L (3.5-5.1)
[2019-01-08 09:05] LABS: PLATELET COUNT 298 K/MM3 (134-434)
[2019-01-08] MEDS: FUROSEMIDE 40 MG/4 ML INJECTABLE VIAL IVPUSH SCH (11:38)
[2019-01-08] MEDS: PANTOPRAZOLE SODIUM 40 MG VIAL IVPUSH SCH ×2 (11:38→21:01)
[2019-01-08] MEDS: AMINO ACIDS/PROTEIN HYDROLYS 30 ML LIQUID.PKT PO SCH ×2 (11:38→18:28)
[2019-01-08] MEDS: POLYETHYLENE GLYCOL 3350 119 GM BTL PO SCH (11:39)
--- NOTE | 2019-01-08 11:39 | PN ---
Progress Note (short form) - Note Progress Note: NAD on NC O2 @ 3 L. Generalized weakness and fatigue. Still with residual cough and NGUYEN. Intake & Output 01/05/19 01/06/19 01/07/19 01/08/19 23:59 23:59 23:59 23:59 Intake Total 20 210 480 Output Total 800 2275 Balance 29 -214 -4140 Weight 124 lb 124 lb 9.6 oz 123 lb 12.8 oz 122 lb 9.6 oz Last Vital Signs Temp Pulse Resp BP Pulse Ox 98.2 F 111 H 18 102/63 94 L 01/08/19 06:00 01/08/19 06:00 01/08/19 06:00 01/08/19 06:00 01/08/19 09:00 Active Medications Amino Acids (Prosource No Carb Liquid Pkt) 30 ml PO BID@0800,1730 [facility] Last Admin: 01/07/19 18:15 Dose: 30 ml Atorvastatin Calcium (Lipitor -) 20 mg PO HS [facility] Last Admin: 01/07/19 22:51 Dose: 20 mg Diltiazem HCl (Cardizem -) 30 mg PO Q6HPO [facility] Last Admin: 01/08/19 06:55 Dose: 30 mg Furosemide (Lasix Injection -) 20 mg IVPUSH DAILY [facility] Last Admin: 01/07/19 11:16 Dose: 20 mg Pantoprazole Sodium (Protonix Iv) 40 mg IVPUSH BID [facility] Last Admin: 01/07/19 22:51 Dose: 40 mg Polyethylene Glycol (Miralax (For Daily Use) -) 17 gm PO DAILY [facility] Last Admin: 01/07/19 13:32 Dose: 17 gm Constitutional: Yes: NAD, Thin Eyes: Yes: WNL HENT: Yes: WNL Neck: Yes: WNL Cardiovascular: Yes: Pulse Irregular, S1, S2 Respiratory: Yes: Bibasilar rales & rhonchi, no wheeze Gastrointestinal: Yes: Normal Bowel Sounds, Soft Extremities: Yes: WNL Edema: No Labs: Laboratory Results - last 24 hr 01/08/19 01/08/19 06:18 06:18 WBC 10.1 H RBC 2.82 L Hgb 8.6 L Hct 25.1 L MCV 88.9 MCH 30.3 MCHC 34.1 RDW 18.5 H Plt Count 298 MPV 8.0 Sodium 138 Potassium 4.2 Chloride 102 Carbon Dioxide 27 Anion Gap 9 BUN 31.8 H Creatinine 1.0 Est GFR (CKD-EPI)AfAm 59.91 Est GFR (CKD-EPI)NonAf 51.69 Random Glucose 106 Calcium 8.3 L Phosphorus 2.9 Magnesium 2.2 Problem List - Problems (1) Acute on chronic diastolic CHF (congestive heart failure) Code(s): I50.33 - ACUTE ON CHRONIC DIASTOLIC (CONGESTIVE) HEART FAILURE (2) APC (atrial premature contractions) Code(s): I49.1 - ATRIAL PREMATURE DEPOLARIZATION (3) Chronic interstitial lung disease Code(s): J84.9 - INTERSTITIAL PULMONARY DISEASE, UNSPECIFIED (4) Scleroderma Code(s): M34.9 - SYSTEMIC SCLEROSIS, UNSPECIFIED (5) Atrial fibrillation Code(s): I48.91 - UNSPECIFIED ATRIAL FIBRILLATION Qualifiers: Atrial fibrillation type: chronic Qualified Code(s): I48.2 - Chronic atrial fibrillation (6) HLD (hyperlipidemia) Code(s): E78.5 - HYPERLIPIDEMIA, UNSPECIFIED (7) HTN (hypertension) Code(s): I10 - ESSENTIAL (PRIMARY) HYPERTENSION Assessment/Plan Altered Mental Status likely from benzodiazepine improved Acute on Chronic Diastolic Heart Failure +Troponins likely Demand Ischemia Scleroderma HTN Hyperlipidemia Atrial Fibrillation vs PACs - Lasix - monitor urine output, creatinine - rate controlled - O2 to keep Spo2 >90% - aspiration precautions - monitor H/H - inhaled bronchodilators - DVT prophylaxis Dr Sultana
--- NOTE | 2019-01-08 11:58 | PN ---
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 She notes her nurse has noticed her stool has been black for the past week, which she believes is related to taking iron daily. Today, patient notes she began feeling lightheaded , "like she was going to pass out," upon getting up and trying to go to the bathroom 2.5 hours ago (she ambulates with a walker at baseline). She reports immediately sitting down as she thought she was going to fall and her symptoms self-resolved after 15 minutes. As per patients daughter, she notes the patient has had symptoms similar to this before when she has had an UTI. Patient endorses mild chills, diaphoresis, and generalized weakness while in the ED. She is currently on a tapered dose of Prednisone for her Raynaud's but denies currently being on antibiotics for last UTI. Pt denies any dysarthria, headache, neck pain, diplopia, numbness/tingling/weakness, cp, back pain. The patient denies shortness of breath, and headache. Denies fever, nausea, vomit, diarrhea and constipation. Denies dysuria, frequency, urgency and hematuria. Allergies: Aspirin, cephalexin, ciprofloxacin, penicillins, quinolones Past surgical history: appendectomy, abdominal surgery, orthopedic surgery Social history: No reported PCP: Dr. Enmanuel Girard - Current Medication List Current Medications: Active Medications Amino Acids (Prosource No Carb Liquid Pkt) 30 ml PO BID@0800,1730 [facility] Last Admin: 01/08/19 11:38 Dose: 30 ml Atorvastatin Calcium (Lipitor -) 20 mg PO [facility] Last Admin: 01/07/19 22:51 Dose: 20 mg Diltiazem HCl (Cardizem -) 30 mg PO Q6HPO [facility] Last Admin: 01/08/19 06:55 Dose: 30 mg Furosemide (Lasix Injection -) 20 mg IVPUSH DAILY [facility] Last Admin: 01/08/19 11:38 Dose: 20 mg Pantoprazole Sodium (Protonix Iv) 40 mg IVPUSH BID [facility] Last Admin: 01/08/19 11:38 Dose: 40 mg Polyethylene Glycol (Miralax (For Daily Use) -) 17 gm PO DAILY [facility] Last Admin: 01/08/19 11:39 Dose: 17 gm - Objective Vital Signs: Vital Signs Temperature 98.2 F 01/08/19 06:00 Pulse Rate 111 H 01/08/19 06:00 Respiratory Rate 18 01/08/19 06:00 Blood Pressure 102/63 01/08/19 06:00 O2 Sat by Pulse Oximetry (%) 94 L 01/08/19 09:00 Constitutional: Yes: Anxious, Thin Eyes: Yes: WNL HENT: Yes: WNL Neck: Yes: WNL Cardiovascular: Yes: Pulse Irregular Respiratory: Yes: Diminished Gastrointestinal: Yes: Normal Bowel Sounds ...Rectal Exam: Yes: Deferred Genitourinary: No: Anuria Musculoskeletal: Yes: Muscle Weakness Extremities: Yes: Cool Edema: No Peripheral Pulses WNL: No Peripheral Pulses: Left Doralis Pedis: 1+, Right Dorsalis Pedis: 1+ Integumentary: Yes: Venous Stasis Changes Neurological: Yes: Alert, Oriented, Weakness Psychiatric: Yes: Alert, Oriented, Other (anxiety/depression) Labs: CBC, BMP 01/08/19 06:18 01/08/19 06:18 - ....Imaging Other: Image Reviewed (telemetry: AF, controlled VR) Problem List - Problems (1) Anemia Code(s): D64.9 - ANEMIA, UNSPECIFIED (2) Finger lesion Assessment/Plan: 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 (Any potential therapy should take into consideration pt's scleroderma). Code(s): L98.9 - DISORDER OF THE SKIN AND SUBCUTANEOUS TISSUE, UNSPECIFIED (3) GI bleed Code(s): K92.2 - GASTROINTESTINAL HEMORRHAGE, UNSPECIFIED (4) Lightheadedness Assessment/Plan: orthostatic VS maintain hydration. F/u electrolytes. Code(s): R42 - DIZZINESS AND GIDDINESS (5) Failure to thrive Code(s): YOT1957 - (6) HLD (hyperlipidemia) Code(s): E78.5 - HYPERLIPIDEMIA, UNSPECIFIED (7) HTN (hypertension) Assessment/Plan: On valsartan. Metoprolol was changed to diltiazem for HR and BP. Code(s): I10 - ESSENTIAL (PRIMARY) HYPERTENSION (8) Pleural effusion Code(s): J90 - PLEURAL EFFUSION, NOT ELSEWHERE CLASSIFIED (9) Scleroderma Assessment/Plan: CREST syndrome. Recommend discontinuation of metoprolol (scleroderma; Raynaud's). Pt is depressed because "they can't do anything about it". 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 Code(s): F32.9 - MAJOR DEPRESSIVE DISORDER, SINGLE EPISODE, UNSPECIFIED (13) Hypomagnesemia Code(s): E83.42 - HYPOMAGNESEMIA (14) Chronic interstitial lung disease Code(s): J84.9 - INTERSTITIAL PULMONARY DISEASE, UNSPECIFIED (15) APC (atrial premature contractions) Code(s): I49.1 - ATRIAL PREMATURE DEPOLARIZATION (16) Atrial fibrillation Assessment/Plan: Continue diltiazem for HR control. For consideration of systemic anticoagulation when two weeks of PPI completed ( in 5 days). Code(s): I48.91 - UNSPECIFIED ATRIAL FIBRILLATION Qualifiers: Atrial fibrillation type: chronic Qualified Code(s): I48.2 - Chronic atrial fibrillation
--- NOTE | 2019-01-08 13:27 | PN ---
Teaching Attending Note Name of Resident: Kamila Greenberg ATTENDING PHYSICIAN STATEMENT I saw and evaluated the patient. I reviewed the resident's note and discussed the case with the resident. I agree with the resident's findings and plan as documented. SUBJECTIVE: Ms Dillon complains of urinary retention. Also complains of weakness that is unchanged. No cp, sob, n/v. OBJECTIVE: Last Vital Signs Temp Pulse Resp BP Pulse Ox 36.8 C 111 H 18 102/63 94 L 01/08/19 06:00 01/08/19 06:00 01/08/19 06:00 01/08/19 06:00 01/08/19 09:00 Gen: nad Pulm: ctab w/o w/r/r, on oxygen CV: irreg irreg with tachycardia, no m/r/g Abd: +bs, s/nt/nd Ext: no c/c/e CBC, BMP 01/08/19 06:18 01/08/19 06:18 ASSESSMENT AND PLAN: (1) Near syncope -fully worked up -has not recurred Code(s): R55 - SYNCOPE AND COLLAPSE (2) Finger lesion -MRI finger negative Code(s): L98.9 - DISORDER OF THE SKIN AND SUBCUTANEOUS TISSUE, UNSPECIFIED (3) UTI (urinary tract infection) -consult ID since still with retention and possible UTI -follow up urine culture Code(s): N39.0 - URINARY TRACT INFECTION, SITE NOT SPECIFIED (4) Atrial fibrillation -had atrial fibrillation with rvr -seen by cardiology -cardiology note reviewed -plan to restart AC after 14 days of PPI, in 5 days -continue diltiazem -will d/w cardiology if needs to titrate up diltiazem Code(s): I48.91 - UNSPECIFIED ATRIAL FIBRILLATION Qualifiers: Atrial fibrillation type: chronic Qualified Code(s): I48.2 - Chronic atrial fibrillation (5) HLD (hyperlipidemia) -continue statin Code(s): E78.5 - HYPERLIPIDEMIA, UNSPECIFIED (6) HTN (hypertension) -continue cardizem Code(s): I10 - ESSENTIAL (PRIMARY) HYPERTENSION (7) Scleroderma -finished prednisone taper Code(s): M34.9 - SYSTEMIC SCLEROSIS, UNSPECIFIED (8) Steroid-induced myopathy -now off of steroids Code(s): G72.0 - DRUG-INDUCED MYOPATHY; T38.0X5A - ADVERSE EFFECT OF GLUCOCORT/ SYNTH ANALOG, INIT (9) Weakness -chronic -worsened with afib Code(s): R53.1 - WEAKNESS (10) GI bleed -EGD performed this admission -patient declines colonoscopy Code(s): K92.2 - GASTROINTESTINAL HEMORRHAGE, UNSPECIFIED
--- NOTE | 2019-01-08 14:35 | PN ---
Physical Exam: SUBJECTIVE: Patient seen and examined Patient resting in bed nad. afebrile hemodynamically stable, AF rate under 110 bpm on tele. denies cp, sob, palpitations, lightheadedness. denies melena, hematochezia. feels weak, but was able to walk around the room with pt. still retaining urine, wilson inserted last night. denies pelvic pain or dysuria OBJECTIVE: Vital Signs Period Temp Pulse Resp BP Sys/Stewart Pulse Ox Last 24 Hr 97.3 F-100.1 F 73-115 18-20 102-139/56-65 92-94 GENERAL: The patient is awake, alert, and fully oriented, in no acute distress. HEAD: Normal with no signs of trauma. EYES: PERRL, extraocular movements intact, sclera anicteric, conjunctiva clear. No ptosis. ENT: moist mucous membranes. NECK: supple. LUNGS: bibasilar ronchi HEART: irregular, s1s2 ABDOMEN: Soft, nontender, nondistended, normoactive bowel sounds EXTREMITIES: 2+ pulses, warm, well-perfused, no edema. NEUROLOGICAL: Cranial nerves II through XII grossly intact. Normal speech, gait not observed. PSYCH: Normal mood, normal affect. SKIN: Warm, dry Laboratory Results - last 24 hr 01/08/19 01/08/19 06:18 06:18 WBC 10.1 H RBC 2.82 L Hgb 8.6 L Hct 25.1 L MCV 88.9 MCH 30.3 MCHC 34.1 RDW 18.5 H Plt Count 298 MPV 8.0 Sodium 138 Potassium 4.2 Chloride 102 Carbon Dioxide 27 Anion Gap 9 BUN 31.8 H Creatinine 1.0 Est GFR (CKD-EPI)AfAm 59.91 Est GFR (CKD-EPI)NonAf 51.69 Random Glucose 106 Calcium 8.3 L Phosphorus 2.9 Magnesium 2.2 Active Medications Generic Name Dose Route Start Last Admin Trade Name Freq PRN Reason Stop Dose Admin Amino Acids 30 ml 01/05/19 17:30 01/08/19 11:38 Prosource No Carb Liquid Pkt PO 30 ml BID@0800,1730 [facility] Administration Atorvastatin Calcium 20 mg 01/05/19 22:00 01/07/19 22:51 Lipitor - PO 20 mg HS [facility] Administration Diltiazem HCl 30 mg 01/06/19 12:00 01/08/19 06:55 Cardizem - PO 30 mg Q6HPO [facility] Administration Furosemide 20 mg 01/06/19 10:00 01/08/19 11:38 Lasix Injection - IVPUSH 20 mg DAILY [facility] Administration Pantoprazole Sodium 40 mg 01/05/19 22:00 01/08/19 11:38 Protonix Iv IVPUSH 40 mg BID [facility] Administration Polyethylene Glycol 17 gm 01/07/19 13:00 01/08/19 11:39 Miralax (For Daily Use) - PO 17 gm DAILY [facility] Administration ASSESSMENT/PLAN: This is an 83 yo F with PMH of hyponatremia with syncope, htn, hld, Raynaud's, Scleroderma, bibems due to near syncope. Patient was sitting on the toilet earlier today, not straining, not actively passing urine or stool when she suddenly felt very dizzy, denies associated flushing, palpitations, cp, nausea. New AF RVR Acute HFPEF exacerbation Troponemia Acute hypoxic respiratory failure GIB w acute blood loss anemia Severe distal esophagitis near syncope R thumb lesion normocytic anemia Raynauds Scleroderma severe protein calorie malnutrition urinary retention -rate controlled on cardizem -volume overload and sob due to volume resuscitation and possible af burden; continue lasix 20 iv d -s/p EGD no occult bleeding seen -hemodynamically stable. hgb 8.8 -continue PPI bid x 2 w total - Fe studies reviewed would benefit from venofer -GI note apprecited, AC is permissible. patient declines ac -patient declines colonoscopy -near syncope likely vasovagal or orthostatic due to dehydration; af and anemia may be contributing. -R thumb calcinosis -wilson nserted, f/u repeat urine culture, Abx per ID for symptomatic uti -plan rehab Problem List - Problems (1) Finger lesion Code(s): L98.9 - DISORDER OF THE SKIN AND SUBCUTANEOUS TISSUE, UNSPECIFIED (2) Near syncope Code(s): R55 - SYNCOPE AND COLLAPSE (3) Raynauds disease Code(s): I73.00 - RAYNAUD'S SYNDROME WITHOUT GANGRENE (4) Scleroderma Code(s): M34.9 - SYSTEMIC SCLEROSIS, UNSPECIFIED (5) HLD (hyperlipidemia) Code(s): E78.5 - HYPERLIPIDEMIA, UNSPECIFIED (6) HTN (hypertension) Code(s): I10 - ESSENTIAL (PRIMARY) HYPERTENSION (7) UTI (urinary tract infection) Code(s): N39.0 - URINARY TRACT INFECTION, SITE NOT SPECIFIED (8) Severe protein-calorie malnutrition Code(s): E43 - UNSPECIFIED SEVERE PROTEIN-CALORIE MALNUTRITION Visit type - Emergency Visit Emergency Visit: Yes ED Registration Date: 12/30/18 Care time: The patient presented to the Emergency Department on the above date and was hospitalized for further evaluation of their emergent condition. - New Patient This patient is new to me today: No - Critical Care Critical Care patient: No - Discharge Referral Referred to [facility] Med P.C.: No
[2019-01-08] MEDS ORDERED: FUROSEMIDE 40 MG/4 ML INJECTABLE VIAL IVPUSH ONE (17:16)
[2019-01-08] MEDS ORDERED: LACTULOSE 20 GM/30 ML UDC (FOR ORAL USE ONLY) PO PRN (17:17)
[2019-01-08] MEDS ORDERED: IRON SUCROSE INJECTION 100 MG in SODIUM CHLORIDE 95 ML IVPB ONE (17:19)
[2019-01-08] MEDS: ATORVASTATIN CA 20 MG TABLET (FP) PO SCH (21:01)
[2019-01-09] MEDS: dilTIAZem HCL 30 MG TABLET (FP) PO SCH ×4 (06:50→19:03)
[2019-01-09 07:04] LABS: BASO % 0.2 % (0-2.0); EOS % 0.9 % (0-4.5); HEMOGLOBIN 8.9 GM/dL (10.7-15.3); LYMPH % 17.2 % (8-40); MCH 30.5 pg (25.7-33.7); MCHC 34.2 g/dl (32.0-36.0); MEAN CELL VOLUME 89.5 fl (80-96); MEAN PLT VOLUME 7.9 fl (7.5-11.1); MONO % 4.9 % (3.8-10.2); NEUT % 76.8 % (42.8-82.8); PLATELET COUNT 293 K/MM3 (134-434); RDW 17.9 % (11.6-15.6); WHITE BLOOD COUNT 7.5 K/mm3 (4.0-10.0)
[2019-01-09 07:30] LABS: BLOOD UREA NITROGEN 31.6 mg/dL (7-18)
[2019-01-09] MEDS: AMINO ACIDS/PROTEIN HYDROLYS 30 ML LIQUID.PKT PO SCH ×2 (09:05→16:44)
--- NOTE | 2019-01-09 09:19 | PN ---
Teaching Attending Note Name of Resident: Kamila Greenberg ATTENDING PHYSICIAN STATEMENT I saw and evaluated the patient. I reviewed the resident's note and discussed the case with the resident. I agree with the resident's findings and plan as documented. SUBJECTIVE: Ms Dillon says she is feeling "a little better" today. Still weak but stable. Wilson in place. No cp, sob, n/v. OBJECTIVE: Last Vital Signs Temp Pulse Resp BP Pulse Ox 36.7 C 88 18 115/59 L 94 L 01/09/19 01:32 01/09/19 01:32 01/09/19 01:32 01/09/19 05:00 01/08/19 21:00 Gen: nad Pulm: slight bibasilar ronchi CV: irreg irreg but rate controlled w/o m/r/g Abd: +bs, s/nt/nd Ext: no c/c/e CBC, BMP 01/09/19 06:13 01/09/19 06:13 ASSESSMENT AND PLAN: (1) Near syncope -fully worked up -has not recurred Code(s): R55 - SYNCOPE AND COLLAPSE (2) Finger lesion -MRI finger negative Code(s): L98.9 - DISORDER OF THE SKIN AND SUBCUTANEOUS TISSUE, UNSPECIFIED (3) UTI (urinary tract infection) -wilson placed secondary to retention -? if now has UTI since symptomatic -urine cultures pending, hopefully will result and not be contaminant -since with multiple allergies, ID consulted for evaluation and treatment -if feels retention is not secondary to UTI, consult urology Code(s): N39.0 - URINARY TRACT INFECTION, SITE NOT SPECIFIED (4) Atrial fibrillation -continue diltiazem -rate controlled -case d/w Dr Serrato -plan to restart AC after 14 days of PPI, in 4 days Code(s): I48.91 - UNSPECIFIED ATRIAL FIBRILLATION Qualifiers: Atrial fibrillation type: chronic Qualified Code(s): I48.2 - Chronic atrial fibrillation (5) HLD (hyperlipidemia) -continue statin Code(s): E78.5 - HYPERLIPIDEMIA, UNSPECIFIED (6) HTN (hypertension) -continue cardizem Code(s): I10 - ESSENTIAL (PRIMARY) HYPERTENSION (7) Scleroderma -finished prednisone taper Code(s): M34.9 - SYSTEMIC SCLEROSIS, UNSPECIFIED (8) Steroid-induced myopathy -now off of steroids Code(s): G72.0 - DRUG-INDUCED MYOPATHY; T38.0X5A - ADVERSE EFFECT OF GLUCOCORT/ SYNTH ANALOG, INIT (9) Weakness -chronic -worsened with afib -will need SNF placement, patient agrees Code(s): R53.1 - WEAKNESS (10) GI bleed -EGD performed this admission -patient declines colonoscopy Code(s): K92.2 - GASTROINTESTINAL HEMORRHAGE, UNSPECIFIED
[2019-01-09] MEDS: FUROSEMIDE 40 MG/4 ML INJECTABLE VIAL IVPUSH SCH (09:31)
[2019-01-09] MEDS: PANTOPRAZOLE SODIUM 40 MG VIAL IVPUSH SCH (09:33)
--- NOTE | 2019-01-09 10:43 | PN ---
Physical Exam: SUBJECTIVE: Patient seen and examined Patient resting in bed nad. afebrile hemodynamically stable, AF rate under 110 bpm on tele with a few short runs of hr 130's. denies cp, sob, palpitations, lightheadedness. denies melena, hematochezia. feels very weak and somnolent, but was able to walk around the room with pt. wilson in place for retention . denies pelvic pain or dysuria OBJECTIVE: Vital Signs Period Temp Pulse Resp BP Sys/Stewart Pulse Ox Last 24 Hr 97.3 F-99.0 F 73-110 18-20 112-139/51-79 94 GENERAL: The patient is awake, alert, and fully oriented, in no acute distress. HEAD: Normal with no signs of trauma. EYES: PERRL, extraocular movements intact, sclera anicteric, conjunctiva clear. No ptosis. ENT: moist mucous membranes. NECK: supple. LUNGS: bibasilar ronchi HEART: irregular, s1s2 ABDOMEN: Soft, nontender, nondistended, normoactive bowel sounds EXTREMITIES: 2+ pulses, warm, well-perfused, no edema. NEUROLOGICAL: Cranial nerves II through XII grossly intact. Normal speech, gait not observed. PSYCH: Normal mood, normal affect. SKIN: Warm, dry Laboratory Results - last 24 hr 01/09/19 01/09/19 06:13 06:13 WBC 7.5 RBC 2.90 L Hgb 8.9 L Hct 26.0 L MCV 89.5 MCH 30.5 MCHC 34.2 RDW 17.9 H Plt Count 293 MPV 7.9 Absolute Neuts (auto) 5.7 Neutrophils % 76.8 Lymphocytes % 17.2 Monocytes % 4.9 Eosinophils % 0.9 D Basophils % 0.2 Nucleated RBC % 0 Sodium 139 Potassium 4.0 Chloride 102 Carbon Dioxide 28 Anion Gap 8 BUN 31.6 H Creatinine 1.0 Est GFR (CKD-EPI)AfAm 59.91 Est GFR (CKD-EPI)NonAf 51.69 Random Glucose 117 H Calcium 8.0 L Active Medications Generic Name Dose Route Start Last Admin Trade Name Freq PRN Reason Stop Dose Admin Amino Acids 30 ml 01/05/19 17:30 01/09/19 09:05 Prosource No Carb Liquid Pkt PO 30 ml BID@0800,1730 [facility] Administration Atorvastatin Calcium 20 mg 01/05/19 22:00 01/08/19 21:01 Lipitor - PO 20 mg HS [facility] Administration Diltiazem HCl 30 mg 01/06/19 12:00 01/09/19 06:50 Cardizem - PO 30 mg Q6HPO [facility] Administration Furosemide 20 mg 01/06/19 10:00 01/09/19 09:31 Lasix Injection - IVPUSH 20 mg DAILY [facility] Administration Lactulose 20 gm 01/08/19 17:17 Cephulac (Oral Use) PO TID PRN CONSTIPATION Pantoprazole Sodium 40 mg 01/05/19 22:00 01/09/19 09:33 Protonix Iv IVPUSH 40 mg BID [facility] Administration Polyethylene Glycol 17 gm 01/07/19 13:00 01/08/19 11:39 Miralax (For Daily Use) - PO 17 gm DAILY [facility] Administration ASSESSMENT/PLAN: This is an 83 yo F with PMH of hyponatremia with syncope, htn, hld, Raynaud's, Scleroderma, bibems due to near syncope. Patient was sitting on the toilet earlier today, not straining, not actively passing urine or stool when she suddenly felt very dizzy, denies associated flushing, palpitations, cp, nausea. New AF RVR Acute HFPEF exacerbation Troponemia Acute hypoxic respiratory failure GIB w acute blood loss anemia Severe distal esophagitis near syncope R thumb lesion normocytic anemia Raynauds Scleroderma severe protein calorie malnutrition urinary retention -rate controlled on cardizem -volume overload and sob due to volume resuscitation and possible af burden; continue lasix 20 iv d -s/p EGD no occult bleeding seen -hemodynamically stable. hgb 8.9 -continue PPI bid x 2 w total - Fe studies reviewed; venofer #2/10 -GI note apprecited, AC is permissible. patient declines ac -patient declines colonoscopy -near syncope likely vasovagal or orthostatic due to dehydration; af and anemia may be contributing. -R thumb calcinosis -wilson inserted, f/u repeat urine culture, multiple abx allergies; Abx per ID for symptomatic uti -plan rehab Problem List - Problems (1) Finger lesion Code(s): L98.9 - DISORDER OF THE SKIN AND SUBCUTANEOUS TISSUE, UNSPECIFIED (2) Near syncope Code(s): R55 - SYNCOPE AND COLLAPSE (3) Raynauds disease Code(s): I73.00 - RAYNAUD'S SYNDROME WITHOUT GANGRENE (4) Scleroderma Code(s): M34.9 - SYSTEMIC SCLEROSIS, UNSPECIFIED (5) HLD (hyperlipidemia) Code(s): E78.5 - HYPERLIPIDEMIA, UNSPECIFIED (6) HTN (hypertension) Code(s): I10 - ESSENTIAL (PRIMARY) HYPERTENSION (7) UTI (urinary tract infection) Code(s): N39.0 - URINARY TRACT INFECTION, SITE NOT SPECIFIED (8) Severe protein-calorie malnutrition Code(s): E43 - UNSPECIFIED SEVERE PROTEIN-CALORIE MALNUTRITION Visit type - Emergency Visit Emergency Visit: Yes ED Registration Date: 12/30/18 Care time: The patient presented to the Emergency Department on the above date and was hospitalized for further evaluation of their emergent condition. - New Patient This patient is new to me today: No - Critical Care Critical Care patient: No - Discharge Referral Referred to [facility] Med P.C.: No
[2019-01-09] MEDS: POLYETHYLENE GLYCOL 3350 119 GM BTL PO SCH (11:59)
[2019-01-09] MEDS ORDERED: IRON SUCROSE INJECTION 100 MG in SODIUM CHLORIDE 95 ML IVPB ONE (12:00)
--- NOTE | 2019-01-09 12:24 | PN ---
Progress Note (short form) - Note Progress Note: PULMONARY APPEARS COMFORTABLE IN BED NO CP/NO SOB AT REST VSS/AFEBRILE Constitutional: Yes: NAD, Thin Eyes: Yes: WNL HENT: Yes: WNL Neck: Yes: WNL Cardiovascular: Yes: Pulse Irregular, S1, S2 Respiratory: Yes: Bibasilar rales & rhonchi, no wheeze Gastrointestinal: Yes: Normal Bowel Sounds, Soft Extremities: Yes: WNL Edema: No Labs/meds/images/notes reviewed Altered Mental Status improved Acute on Chronic Diastolic Heart Failure +Troponins likely Demand Ischemia Scleroderma HTN Hyperlipidemia Atrial Fibrillation vs PACs - Lasix - monitor urine output, creatinine - rate controlled - O2 to keep Spo2 >90% - aspiration precautions - monitor H/H - inhaled bronchodilators - DVT prophylaxis Juliana NEVAREZ MD
--- NOTE | 2019-01-09 16:41 | PN ---
Progress Note, Physician Chief Complaint: Pt A&Ox3; feels weak; no chest pain; dyspnea on minimal exertion.; no palpitations. 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 She notes her nurse has noticed her stool has been black for the past week, which she believes is related to taking iron daily. Today, patient notes she began feeling lightheaded , "like she was going to pass out," upon getting up and trying to go to the bathroom 2.5 hours ago (she ambulates with a walker at baseline). She reports immediately sitting down as she thought she was going to fall and her symptoms self-resolved after 15 minutes. As per patients daughter, she notes the patient has had symptoms similar to this before when she has had an UTI. Patient endorses mild chills, diaphoresis, and generalized weakness while in the ED. She is currently on a tapered dose of Prednisone for her Raynaud's but denies currently being on antibiotics for last UTI. Pt denies any dysarthria, headache, neck pain, diplopia, numbness/tingling/weakness, cp, back pain. The patient denies shortness of breath, and headache. Denies fever, nausea, vomit, diarrhea and constipation. Denies dysuria, frequency, urgency and hematuria. Allergies: Aspirin, cephalexin, ciprofloxacin, penicillins, quinolones Past surgical history: appendectomy, abdominal surgery, orthopedic surgery Social history: No reported PCP: Dr. Enmanuel Girard - Current Medication List Current Medications: Active Medications Amino Acids (Prosource No Carb Liquid Pkt) 30 ml PO BID@0800,1730 [facility] Last Admin: 01/09/19 09:05 Dose: 30 ml Atorvastatin Calcium (Lipitor -) 20 mg PO HS [facility] Last Admin: 01/08/19 21:01 Dose: 20 mg Diltiazem HCl (Cardizem -) 30 mg PO Q6HPO [facility] Last Admin: 01/09/19 14:14 Dose: 30 mg Furosemide (Lasix Injection -) 20 mg IVPUSH DAILY [facility] Last Admin: 01/09/19 09:31 Dose: 20 mg Lactulose (Cephulac (Oral Use)) 20 gm PO TID PRN PRN Reason: CONSTIPATION Pantoprazole Sodium (Protonix Iv) 40 mg IVPUSH BID [facility] Last Admin: 01/09/19 09:33 Dose: 40 mg Polyethylene Glycol (Miralax (For Daily Use) -) 17 gm PO DAILY [facility] Last Admin: 01/09/19 11:59 Dose: 17 gm - Objective Vital Signs: Vital Signs Temperature 97.7 F 01/09/19 14:05 Pulse Rate 84 01/09/19 14:05 Respiratory Rate 20 01/09/19 14:05 Blood Pressure 124/69 01/09/19 14:05 O2 Sat by Pulse Oximetry (%) 94 L 01/09/19 09:00 Constitutional: Yes: Anxious Eyes: Yes: WNL HENT: Yes: WNL Neck: Yes: WNL Cardiovascular: Yes: S1, S2 Respiratory: Yes: Diminished Gastrointestinal: Yes: Soft ...Rectal Exam: Yes: Deferred Genitourinary: No: Anuria Breast(s): Yes: WNL Musculoskeletal: Yes: Muscle Weakness Extremities: Yes: Cool Edema: No Integumentary: Yes: Skin Tear, Venous Stasis Changes Neurological: Yes: Alert, Oriented, Weakness Psychiatric: Yes: Other (anxiety/depression) Labs: CBC, BMP 01/09/19 06:13 01/09/19 06:13 Abnormal Lab Results 01/10/19 01/10/19 06:25 06:25 RBC 2.80 L Hgb 8.6 L Hct 24.8 L RDW 17.6 H Anion Gap 7 L BUN 29.2 H Random Glucose 112 H Calcium 7.7 L Problem List - Problems (1) Anemia Assessment/Plan: acute/chronic. Receiving PRBCs. Esophagitis. On PPI Prolematic starting anticoagulation for AF. Code(s): D64.9 - ANEMIA, UNSPECIFIED (2) Finger lesion Assessment/Plan: 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 (Any potential therapy should take into consideration pt's scleroderma). Code(s): L98.9 - DISORDER OF THE SKIN AND SUBCUTANEOUS TISSUE, UNSPECIFIED (3) GI bleed Code(s): K92.2 - GASTROINTESTINAL HEMORRHAGE, UNSPECIFIED (4) Lightheadedness Assessment/Plan: orthostatic VS maintain hydration. F/u electrolytes. 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 ECHO: normal LVEF: severely dilated LA, restrictive physiology. Off metoprolol (Reynaud's); on diltiazem, with fairly good HR control. Problematic starting anticoagulant; hematology and GI input appreciated. Pt has been on a PPI for more than a week; Pros and cons of starting an anticoagulatn were discussed with pt and her daughter. Treating a bleed may prove difficult in pt's condition; at the same time, would want to avoid a CVA. It has been decided to wait until, at a minimum, 14 days of PPI are completed. Code(s): I49.1 - ATRIAL PREMATURE DEPOLARIZATION (16) Atrial fibrillation Assessment/Plan: Continue diltiazem for HR control. Pt is at high risk for GI bleed; she has anemia that has required PRBCs. For consideration of systemic anticoagulation when two weeks of PPI completed. The benefits vs risks of starting anticoagulation earlier were discussed with both pt and her daughter, Vinita. Although there is a risk of AF-->embolism and CVA without anticoagulation, her high risk of bleed and potential attendant difficulty in controlling it (bragile state; scleroderma with esophageal disorder) helped decide on waiting to start anticoagulation at least a few more days. Code(s): I48.91 - UNSPECIFIED ATRIAL FIBRILLATION Qualifiers: Atrial fibrillation type: chronic Qualified Code(s): I48.2 - Chronic atrial fibrillation
[2019-01-10] MEDS: dilTIAZem HCL 30 MG TABLET (FP) PO SCH ×4 (00:04→17:04)
[2019-01-10] MEDS: PANTOPRAZOLE SODIUM 40 MG VIAL IVPUSH SCH ×3 (00:04→22:08)
[2019-01-10] MEDS: ATORVASTATIN CA 20 MG TABLET (FP) PO SCH ×2 (00:04→22:08)
[2019-01-10 07:32] LABS: BLOOD UREA NITROGEN 29.2 mg/dL (7-18); CALCIUM 7.7 mg/dL (8.5-10.1); CREATININE 0.9 mg/dL (0.55-1.3); PHOSPHOROUS 3.8 mg/dL (2.5-4.9); POTASSIUM 3.9 mmol/L (3.5-5.1)
[2019-01-10 08:10] LABS: BASO % 0.4 % (0-2.0); EOS % 0.6 % (0-4.5); HEMATOCRIT 24.8 % (32.4-45.2); HEMOGLOBIN 8.6 GM/dL (10.7-15.3); LYMPH % 19.8 % (8-40); MCH 30.8 pg (25.7-33.7); MCHC 34.8 g/dl (32.0-36.0); MEAN CELL VOLUME 88.4 fl (80-96); MEAN PLT VOLUME 7.9 fl (7.5-11.1); MONO % 5.6 % (3.8-10.2); NEUT % 73.6 % (42.8-82.8); PLATELET COUNT 391 K/MM3 (134-434); RDW 17.6 % (11.6-15.6); WHITE BLOOD COUNT 8.8 K/mm3 (4.0-10.0)
[2019-01-10] MEDS: AMINO ACIDS/PROTEIN HYDROLYS 30 ML LIQUID.PKT PO SCH ×2 (08:45→17:02)
[2019-01-10] MEDS: FUROSEMIDE 40 MG/4 ML INJECTABLE VIAL IVPUSH SCH (10:22)
[2019-01-10] MEDS: POLYETHYLENE GLYCOL 3350 119 GM BTL PO SCH (10:23)
[2019-01-10] MEDS: TAMSULOSIN HCL 0.4 MG CAP PO SCH (12:16)
--- NOTE | 2019-01-10 12:24 | PN ---
Progress Note, Physician Chief Complaint: Ms Dillon says she is feeling better today. Still weak but unchanged. No cp, sob, n/v. - Current Medication List Current Medications: Active Medications Amino Acids (Prosource No Carb Liquid Pkt) 30 ml PO BID@0800,1730 [facility] Last Admin: 01/10/19 08:45 Dose: 30 ml Atorvastatin Calcium (Lipitor -) 20 mg PO HS [facility] Last Admin: 01/10/19 00:04 Dose: 20 mg Diltiazem HCl (Cardizem -) 30 mg PO Q6HPO [facility] Last Admin: 01/10/19 12:16 Dose: 30 mg Furosemide (Lasix Injection -) 20 mg IVPUSH DAILY [facility] Last Admin: 01/10/19 10:22 Dose: 20 mg Lactulose (Cephulac (Oral Use)) 20 gm PO TID PRN PRN Reason: CONSTIPATION Pantoprazole Sodium (Protonix Iv) 40 mg IVPUSH BID [facility] Last Admin: 01/10/19 10:22 Dose: 40 mg Polyethylene Glycol (Miralax (For Daily Use) -) 17 gm PO DAILY [facility] Last Admin: 01/10/19 10:23 Dose: 17 gm Tamsulosin HCl (Flomax -) 0.4 mg PO DAILY@0830 [facility] Last Admin: 01/10/19 12:16 Dose: 0.4 mg - Objective Vital Signs: Vital Signs Temperature 36.8 C 01/10/19 02:00 Pulse Rate 92 H 01/10/19 06:00 Respiratory Rate 20 01/10/19 06:00 Blood Pressure 123/78 01/10/19 06:00 O2 Sat by Pulse Oximetry (%) 94 L 01/09/19 09:00 Constitutional: Yes: Well Nourished, No Distress, Calm Cardiovascular: Yes: Pulse Irregular. No: Tachycardia, Gallop, Murmur, Rub Respiratory: Yes: Regular, On Nasal O2, Rhonchi (slight). No: Rales, Wheezes Gastrointestinal: Yes: Normal Bowel Sounds, Soft. No: Distention, Tenderness Extremities: Yes: WNL Edema: No Labs: CBC, BMP 01/10/19 06:25 01/10/19 06:25 Assessment/Plan (1) Near syncope -fully worked up -has not recurred Code(s): R55 - SYNCOPE AND COLLAPSE (2) Finger lesion -MRI finger negative Code(s): L98.9 - DISORDER OF THE SKIN AND SUBCUTANEOUS TISSUE, UNSPECIFIED (3) UTI (urinary tract infection) -urine culture negative -voiding trial to remove wilson Code(s): N39.0 - URINARY TRACT INFECTION, SITE NOT SPECIFIED (4) Atrial fibrillation -continue diltiazem -rate controlled -case d/w Dr Serrato -plan to restart AC after 14 days of PPI, in 3 days Code(s): I48.91 - UNSPECIFIED ATRIAL FIBRILLATION Qualifiers: Atrial fibrillation type: chronic Qualified Code(s): I48.2 - Chronic atrial fibrillation (5) HLD (hyperlipidemia) -continue statin Code(s): E78.5 - HYPERLIPIDEMIA, UNSPECIFIED (6) HTN (hypertension) -continue cardizem Code(s): I10 - ESSENTIAL (PRIMARY) HYPERTENSION (7) Scleroderma -finished prednisone taper Code(s): M34.9 - SYSTEMIC SCLEROSIS, UNSPECIFIED (8) Steroid-induced myopathy -now off of steroids Code(s): G72.0 - DRUG-INDUCED MYOPATHY; T38.0X5A - ADVERSE EFFECT OF GLUCOCORT/ SYNTH ANALOG, INIT (9) Weakness -chronic -will need SNF placement, patient agrees Code(s): R53.1 - WEAKNESS (10) GI bleed -EGD performed this admission -patient declines colonoscopy Code(s): K92.2 - GASTROINTESTINAL HEMORRHAGE, UNSPECIFIED
--- NOTE | 2019-01-10 15:01 | PN ---
Progress Note, Physician Chief Complaint: Pt A&Ox3; dyspneic on mild exertion. 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 She notes her nurse has noticed her stool has been black for the past week, which she believes is related to taking iron daily. Today, patient notes she began feeling lightheaded , "like she was going to pass out," upon getting up and trying to go to the bathroom 2.5 hours ago (she ambulates with a walker at baseline). She reports immediately sitting down as she thought she was going to fall and her symptoms self-resolved after 15 minutes. As per patients daughter, she notes the patient has had symptoms similar to this before when she has had an UTI. Patient endorses mild chills, diaphoresis, and generalized weakness while in the ED. She is currently on a tapered dose of Prednisone for her Raynaud's but denies currently being on antibiotics for last UTI. Pt denies any dysarthria, headache, neck pain, diplopia, numbness/tingling/weakness, cp, back pain. The patient denies shortness of breath, and headache. Denies fever, nausea, vomit, diarrhea and constipation. Denies dysuria, frequency, urgency and hematuria. Allergies: Aspirin, cephalexin, ciprofloxacin, penicillins, quinolones Past surgical history: appendectomy, abdominal surgery, orthopedic surgery Social history: No reported PCP: Dr. Enmanuel Girard - Current Medication List Current Medications: Active Medications Amino Acids (Prosource No Carb Liquid Pkt) 30 ml PO BID@0800,1730 [facility] Last Admin: 06/15/19 08:45 Dose: 30 ml Atorvastatin Calcium (Lipitor -) 20 mg PO HS [facility] Last Admin: 01/10/19 00:04 Dose: 20 mg Diltiazem HCl (Cardizem -) 30 mg PO Q6HPO [facility] Last Admin: 01/10/19 12:16 Dose: 30 mg Furosemide (Lasix Injection -) 20 mg IVPUSH DAILY [facility] Last Admin: 01/10/19 10:22 Dose: 20 mg Lactulose (Cephulac (Oral Use)) 20 gm PO TID PRN PRN Reason: CONSTIPATION Pantoprazole Sodium (Protonix Iv) 40 mg IVPUSH BID [facility] Last Admin: 01/10/19 10:22 Dose: 40 mg Polyethylene Glycol (Miralax (For Daily Use) -) 17 gm PO DAILY [facility] Last Admin: 01/10/19 10:23 Dose: 17 gm Tamsulosin HCl (Flomax -) 0.4 mg PO DAILY@0830 [facility] Last Admin: 01/10/19 12:16 Dose: 0.4 mg - Objective Vital Signs: Vital Signs Temperature 97.9 F 01/10/19 10:00 Pulse Rate 77 01/10/19 10:00 Respiratory Rate 20 01/10/19 10:00 Blood Pressure 126/44 L 01/10/19 10:00 O2 Sat by Pulse Oximetry (%) 96 01/10/19 09:00 Constitutional: Yes: Anxious, Thin Eyes: Yes: WNL HENT: Yes: WNL Neck: Yes: Decreased ROM Cardiovascular: Yes: S1 (varies in intensity), S2 Respiratory: Yes: Diminished, Tachypnea Gastrointestinal: Yes: Soft ...Rectal Exam: Yes: Deferred Genitourinary: No: Anuria Breast(s): Yes: WNL Musculoskeletal: Yes: Joint Stiffness, Muscle Weakness Extremities: Yes: Cool Edema: No Peripheral Pulses WNL: No Peripheral Pulses: Left Doralis Pedis: 1+, Right Dorsalis Pedis: 1+ Integumentary: Yes: Bruising, Other Neurological: Yes: Alert, Oriented, Weakness Psychiatric: Yes: Alert, Oriented, Other (anxeity/depression) Labs: CBC, BMP 01/10/19 06:25 01/10/19 06:25 - ....Imaging Other: Image Reviewed (telemetry: AF with RVR) Problem List - Problems (1) Anemia Code(s): D64.9 - ANEMIA, UNSPECIFIED (2) Finger lesion Assessment/Plan: 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 (Any potential therapy should take into consideration pt's scleroderma). Code(s): L98.9 - DISORDER OF THE SKIN AND SUBCUTANEOUS TISSUE, UNSPECIFIED (3) GI bleed Code(s): K92.2 - GASTROINTESTINAL HEMORRHAGE, UNSPECIFIED (4) Lightheadedness Assessment/Plan: orthostatic VS maintain hydration. F/u electrolytes. Code(s): R42 - DIZZINESS AND GIDDINESS (5) Failure to thrive Code(s): [id number] - (6) HLD (hyperlipidemia) Code(s): E78.5 - HYPERLIPIDEMIA, UNSPECIFIED (7) HTN (hypertension) Assessment/Plan: On valsartan. Metoprolol was changed to diltiazem for HR and BP. 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 Keep K+ 4-4.5. Code(s): E83.42 - HYPOMAGNESEMIA (14) Chronic interstitial lung disease Assessment/Plan: f/u with geotechnical engineer. Code(s): J84.9 - INTERSTITIAL PULMONARY DISEASE, UNSPECIFIED (15) Atrial fibrillation Assessment/Plan: Continue diltiazem for HR control; may increase to 60 mg q8h if better HR control is required. Pt is at high risk for GI bleed; she has anemia that has required PRBCs. For consideration of systemic anticoagulation when two weeks of PPI completed. The benefits vs risks of starting anticoagulation earlier were discussed with both pt and her daughter, Nicky. Although there is a risk of AF-->embolism and CVA without anticoagulation, her high risk of bleed and potential attendant difficulty in controlling it (bfagile state; scleroderma with esophageal disorder) helped decide on waiting to start anticoagulation at least a few more days. Code(s): I48.91 - UNSPECIFIED ATRIAL FIBRILLATION Qualifiers: Atrial fibrillation type: chronic Qualified Code(s): I48.2 - Chronic atrial fibrillation
[2019-01-10 18:49] LABS: EPI CELLS 0.2 /HPF (0-5/HPF); HYALINE CASTS 3 /lpf (0-8); PH,URINE 5.5 (5.0-8.0); URINE APPEARANCE CLEAR; URINE BACTERIA 1123.1 /hpf (NEGATIVE); URINE BILIRUBIN NEGATIVE (NEGATIVE); URINE COLOR YELLOW; URINE GLUCOSE (UA) NEGATIVE (NEGATIVE); URINE KETONE NEGATIVE (NEGATIVE); URINE LEUK ESTERASE 3+ (NEGATIVE); URINE NITRITE POSITIVE (NEGATIVE); URINE PROTEIN TRACE (NEGATIVE); URINE RBC 4 /hpf (0-4); URINE WBC 74 /hpf (0-5)
[2019-01-10] MEDS ORDERED: ACETAMINOPHEN 325 MG TABLET (FP) PO ONE (23:55)
[2019-01-11] MEDS: dilTIAZem HCL 30 MG TABLET (FP) PO SCH (00:25)
[2019-01-11] MEDS ORDERED: HEPARIN NA (PORCINE) 5,000 UNITS/ML 1ML VIAL IVPUSH ONE (01:58)
--- NOTE | 2019-01-11 02:02 | HOSP ---
Subjective - Review of Symptoms Subjective: notified by RN that patient c/o palpitations. On arrival to assess pt, she stated that her palpitations were getting better. EKG taken at this time unchanged from previous. ordered trop paged by RN later stating that the trop came back 3.69. Patient had trop .28 several days ago. at this time, the patient still c/o palps, though improved. Cardio contacted, discussed the case w/ Dr. Serrato. At the instruction of cardio, placed the patient on heparin GTT w/ 4,000 unit bolus. D/cd the patient's cardizem and replaced it w/ toprol tartrate 25 BID. ASA contraindicated as the patient is allergic. Cardio will reassess the role of plavix in the AM Per Dr. Serrato and previous notes, patient is at increased risk of bleeding w/ AC. At this point, the benefit of treating her NSTEMI outweighs the risk of bleeding. Will monitor closely for stigmata of hemorrhage Cardiovascular: Yes: Palpitations Physical Examination Vital Signs: Vital Signs Temperature 97.6 F 01/10/19 17:00 Pulse Rate 92 H 01/10/19 17:00 Respiratory Rate 20 01/10/19 17:00 Blood Pressure 119/64 01/10/19 17:00 O2 Sat by Pulse Oximetry (%) 96 01/10/19 09:00 Constitutional: Yes: No Distress, Calm HENT: Yes: Atraumatic, Normocephalic Cardiovascular: Yes: Regular Rate and Rhythm, S1, S2. No: Gallop, Murmur, Rub Respiratory: Yes: Regular, CTA Bilaterally Gastrointestinal: Yes: Normal Bowel Sounds, Soft Labs: CBC, BMP 01/10/19 06:25 01/10/19 06:25 Visit type - Emergency Visit Emergency Visit: Yes ED Registration Date: 12/30/18 Care time: The patient presented to the Emergency Department on the above date and was hospitalized for further evaluation of their emergent condition. - New Patient This patient is new to me today: Yes Date on this admission: 01/11/19 - Critical Care Critical Care patient: No
[2019-01-11] MEDS: HEPARIN - 25,000 UNIT in SODIUM CHLORIDE 495 ML IV SCH (03:12)
[2019-01-11 03:18] LABS: INR 0.99 (0.83-1.09); PROTHROMBIN TIME (PATIENT) 11.7 SEC (9.7-13.0)
[2019-01-11 03:21] LABS: ACTIVATED PTT 28.3 SECONDS (25.2-36.5)
[2019-01-11 07:48] LABS: BASO % 0.4 % (0-2.0); EOS % 0.9 % (0-4.5); HEMATOCRIT 24.6 % (32.4-45.2); HEMOGLOBIN 8.2 GM/dL (10.7-15.3); MCH 29.6 pg (25.7-33.7); MCHC 33.2 g/dl (32.0-36.0); MEAN CELL VOLUME 89.3 fl (80-96); MONO % 7.4 % (3.8-10.2); NEUT % 64.3 % (42.8-82.8); RBC 2.75 M/mm3 (3.60-5.2); WHITE BLOOD COUNT 8.6 K/mm3 (4.0-10.0)
[2019-01-11 08:10] LABS: CALCIUM 8.1 mg/dL (8.5-10.1); CREATININE 0.8 mg/dL (0.55-1.3); MAGNESIUM 2.3 mg/dL (1.8-2.4); PHOSPHOROUS 3.6 mg/dL (2.5-4.9); POTASSIUM 3.7 mmol/L (3.5-5.1)
[2019-01-11 08:46] LABS: PLATELET COUNT 388 K/MM3 (134-434)
[2019-01-11] MEDS: AMINO ACIDS/PROTEIN HYDROLYS 30 ML LIQUID.PKT PO SCH ×2 (09:06→17:05)
[2019-01-11] MEDS: TAMSULOSIN HCL 0.4 MG CAP PO SCH (09:06)
--- NOTE | 2019-01-11 09:20 | PN ---
Progress Note (short form) - Note Progress Note: PULMONARY EPISODE OF PALPS EARLY AM SPIKE IN TROP/NO REPORTED CHANGE IN EKG CARDIO NOTIFIED IV HEPARIN STARTED AND BETA MARCK HAS REPLACED CARDIZEM VSS/AFEBRILE Constitutional: Yes: NAD, Thin Eyes: Yes: WNL HENT: Yes: WNL Neck: Yes: WNL Cardiovascular: Yes: Pulse Irregular, S1, S2 Respiratory: Yes: Bibasilar rales & rhonchi, no wheeze Gastrointestinal: Yes: Normal Bowel Sounds, Soft Extremities: Yes: WNL Edema: No Labs/meds/images/notes reviewed Altered Mental Status improved Acute on Chronic Diastolic Heart Failure +Troponins likely Demand Ischemia vs nonstemi (more likely) Scleroderma HTN Hyperlipidemia Atrial Fibrillation vs PACs - repeat EKG this am - cardio follow up - monitor urine output, creatinine - rate controlled - O2 to keep Spo2 >90% - aspiration precautions - monitor H/H - inhaled bronchodilators - DVT prophylaxis Juliana NEVAREZ MD
[2019-01-11] MEDS: POLYETHYLENE GLYCOL 3350 119 GM BTL PO SCH (10:07)
[2019-01-11] MEDS: FUROSEMIDE 40 MG/4 ML INJECTABLE VIAL IVPUSH SCH (10:07)
[2019-01-11] MEDS: PANTOPRAZOLE SODIUM 40 MG VIAL IVPUSH SCH ×2 (10:07→22:55)
[2019-01-11] MEDS: METOPROLOL TARTRATE 25 MG TABLET (FP) PO SCH ×2 (10:07→22:55)
--- NOTE | 2019-01-11 13:29 | PN ---
Progress Note, Physician Chief Complaint: Ms Dillon says she is feelign weak but otherwise is without complaint. No cp , sob, n/v. Had an episode of palpitations overnight. - Current Medication List Current Medications: Active Medications Amino Acids (Prosource No Carb Liquid Pkt) 30 ml PO BID@0800,1730 [facility] Last Admin: 01/11/19 09:06 Dose: 30 ml Atorvastatin Calcium (Lipitor -) 20 mg PO HS [facility] Last Admin: 01/10/19 22:08 Dose: 20 mg Furosemide (Lasix Injection -) 20 mg IVPUSH DAILY [facility] Last Admin: 01/11/19 10:07 Dose: 20 mg Heparin Sodium (Porcine) (Heparin -) 1,000 unit IVPUSH PRN PRN PRN Reason: Heparin Heparin Sodium (Porcine) (Heparin -) 5,000 unit IVPUSH PRN PRN PRN Reason: Heparin Heparin Sodium (Porcine) 25, (000 unit/ Sodium Chloride) 500 mls @ 16 mls/hr IV TITR [facility]; Protocol Last Admin: 01/11/19 03:12 Dose: 800 unit/hr, 16 mls/hr Lactulose (Cephulac (Oral Use)) 20 gm PO TID PRN PRN Reason: CONSTIPATION Metoprolol Tartrate (Lopressor -) 25 mg PO BID [facility] Last Admin: 01/11/19 10:07 Dose: 25 mg Pantoprazole Sodium (Protonix Iv) 40 mg IVPUSH BID [facility] Last Admin: 01/11/19 10:07 Dose: 40 mg Polyethylene Glycol (Miralax (For Daily Use) -) 17 gm PO DAILY [facility] Last Admin: 01/11/19 10:07 Dose: 17 gm Tamsulosin HCl (Flomax -) 0.4 mg PO DAILY@0830 [facility] Last Admin: 01/11/19 09:06 Dose: 0.4 mg - Objective Vital Signs: Vital Signs Temperature 36.5 C 01/11/19 10:00 Pulse Rate 96 H 01/11/19 10:00 Respiratory Rate 18 01/11/19 10:00 Blood Pressure 116/76 01/11/19 10:00 O2 Sat by Pulse Oximetry (%) 95 01/10/19 21:00 Constitutional: Yes: Well Nourished, No Distress, Calm Cardiovascular: Yes: Pulse Irregular. No: Tachycardia, Gallop, Murmur, Rub Respiratory: Yes: Regular, On Nasal O2, Rhonchi (slight). No: CTA Bilaterally, Rales, Wheezes Gastrointestinal: Yes: Normal Bowel Sounds, Soft. No: Distention, Tenderness Extremities: Yes: WNL Edema: No Labs: CBC, BMP 01/11/19 06:19 01/11/19 06:19 INR, PTT INR 0.99 (0.83-1.09) 01/11/19 02:25 Assessment/Plan (1) NSTEMI -patient had palpitations overnight -found to have elevated troponins -cardiology aware -started on heparin gtt -diltiazem changed to metoprolol -patient with aspirin allergy, cannot utilize -continue medical management Code(s): (2) Finger lesion -MRI finger negative Code(s): L98.9 - DISORDER OF THE SKIN AND SUBCUTANEOUS TISSUE, UNSPECIFIED (3) UTI (urinary tract infection) -urine culture negative -voiding trial to remove wilson Code(s): N39.0 - URINARY TRACT INFECTION, SITE NOT SPECIFIED (4) Atrial fibrillation -rate controlled -diltiazem changed to metoprolol -now on heparin gtt Code(s): I48.91 - UNSPECIFIED ATRIAL FIBRILLATION Qualifiers: Atrial fibrillation type: chronic Qualified Code(s): I48.2 - Chronic atrial fibrillation (5) HLD (hyperlipidemia) -continue statin Code(s): E78.5 - HYPERLIPIDEMIA, UNSPECIFIED (6) HTN (hypertension) -continue cardizem Code(s): I10 - ESSENTIAL (PRIMARY) HYPERTENSION (7) Scleroderma -finished prednisone taper Code(s): M34.9 - SYSTEMIC SCLEROSIS, UNSPECIFIED (8) Steroid-induced myopathy -now off of steroids Code(s): G72.0 - DRUG-INDUCED MYOPATHY; T38.0X5A - ADVERSE EFFECT OF GLUCOCORT/ SYNTH ANALOG, INIT (9) Weakness -chronic -will need SNF placement, patient agrees Code(s): R53.1 - WEAKNESS (10) GI bleed -EGD performed this admission -patient declines colonoscopy Code(s): K92.2 - GASTROINTESTINAL HEMORRHAGE, UNSPECIFIED
--- NOTE | 2019-01-11 16:58 | EKG ---
Test Reason : Blood Pressure : / mmHG Vent. Rate : 114 BPM Atrial Rate : 119 BPM P-R Int : 000 ms QRS Dur : 088 ms QT Int : 366 ms P-R-T Axes : 000 -34 124 degrees QTc Int : 504 ms ATRIAL FIBRILLATION WITH RAPID VENTRICULAR RESPONSE LEFT AXIS DEVIATION T WAVE ABNORMALITY, CONSIDER LATERAL ISCHEMIA ABNORMAL ECG WHEN COMPARED WITH ECG OF 11-JAN-2019 01:52, NO SIGNIFICANT CHANGE WAS FOUND Confirmed by MD YUE, NAE ([id number]) on 01/11/2019 4:58:30 PM Referred By: Markie GARCIA Confirmed By:NAE TURNER MD
--- NOTE | 2019-01-11 17:00 | EKG ---
Test Reason : Blood Pressure : / mmHG Vent. Rate : 107 BPM Atrial Rate : 102 BPM P-R Int : 000 ms QRS Dur : 092 ms QT Int : 350 ms P-R-T Axes : 000 -40 133 degrees QTc Int : 467 ms ATRIAL FIBRILLATION WITH RAPID VENTRICULAR RESPONSE LEFT AXIS DEVIATION ABNORMAL ECG WHEN COMPARED WITH ECG OF 07-JAN-2019 12:29, T WAVE INVERSION MORE EVIDENT IN LATERAL LEADS Confirmed by MD YUE, NAE ([id number]) on 01/11/2019 5:00:38 PM Referred By: Confirmed By:NAE TURNER MD
[2019-01-11] MEDS: ATORVASTATIN CA 20 MG TABLET (FP) PO SCH (22:55)
[2019-01-12] MEDS: AMINO ACIDS/PROTEIN HYDROLYS 30 ML LIQUID.PKT PO SCH ×2 (08:25→18:30)
--- NOTE | 2019-01-12 08:36 | PN ---
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 She notes her nurse has noticed her stool has been black for the past week, which she believes is related to taking iron daily. Today, patient notes she began feeling lightheaded , "like she was going to pass out," upon getting up and trying to go to the bathroom 2.5 hours ago (she ambulates with a walker at baseline). She reports immediately sitting down as she thought she was going to fall and her symptoms self-resolved after 15 minutes. As per patients daughter, she notes the patient has had symptoms similar to this before when she has had an UTI. Patient endorses mild chills, diaphoresis, and generalized weakness while in the ED. She is currently on a tapered dose of Prednisone for her Raynaud's but denies currently being on antibiotics for last UTI. Pt denies any dysarthria, headache, neck pain, diplopia, numbness/tingling/weakness, cp, back pain. The patient denies shortness of breath, and headache. Denies fever, nausea, vomit, diarrhea and constipation. Denies dysuria, frequency, urgency and hematuria. Allergies: Aspirin, cephalexin, ciprofloxacin, penicillins, quinolones Past surgical history: appendectomy, abdominal surgery, orthopedic surgery Social history: No reported PCP: Dr. Enmanuel Girard Hospital course ; 83yo female with h/o Scleroderma on chronic prednisone, HTN, hyperlipidemia, hyponatremia who was admitted for near syncope. Treated for dehydration with IVF. Was to be discharged last night, had a MRI done with ativan given. This AM, somnolent, lethargic but arousable and increasing shortness of breath. CXR today suggestive of pulmonary edema and bloodwork showing dropping H/H, transfered to the ICU for closer monitoring. - Current Medication List Current Medications: Active Medications Amino Acids (Prosource No Carb Liquid Pkt) 30 ml PO BID@0800,1730 [facility] Last Admin: 01/12/19 08:25 Dose: 30 ml Atorvastatin Calcium (Lipitor -) 20 mg PO HS [facility] Last Admin: 01/11/19 22:55 Dose: 20 mg Furosemide (Lasix Injection -) 20 mg IVPUSH DAILY [facility] Last Admin: 01/11/19 10:07 Dose: 20 mg Heparin Sodium (Porcine) (Heparin -) 1,000 unit IVPUSH PRN PRN PRN Reason: Heparin Heparin Sodium (Porcine) (Heparin -) 5,000 unit IVPUSH PRN PRN PRN Reason: Heparin Heparin Sodium (Porcine) 25, (000 unit/ Sodium Chloride) 500 mls @ 16 mls/hr IV TITR [facility]; Protocol Last Admin: 01/11/19 03:12 Dose: 800 unit/hr, 16 mls/hr Lactulose (Cephulac (Oral Use)) 20 gm PO TID PRN PRN Reason: CONSTIPATION Metoprolol Tartrate (Lopressor -) 25 mg PO BID [facility] Last Admin: 01/11/19 22:55 Dose: 25 mg Pantoprazole Sodium (Protonix Iv) 40 mg IVPUSH BID [facility] Last Admin: 01/11/19 22:55 Dose: 40 mg Polyethylene Glycol (Miralax (For Daily Use) -) 17 gm PO DAILY [facility] Last Admin: 01/11/19 10:07 Dose: 17 gm - Objective Vital Signs: Vital Signs Temperature 97.6 F 01/12/19 06:00 Pulse Rate 130 H 01/12/19 06:00 Respiratory Rate 20 01/12/19 06:00 Blood Pressure 117/70 01/12/19 06:00 O2 Sat by Pulse Oximetry (%) 95 01/10/19 21:00 Eyes: Yes: WNL, Conjunctiva Clear, EOM Intact HENT: Yes: WNL, Atraumatic, Normocephalic Neck: Yes: WNL, Supple, Trachea Midline Cardiovascular: Yes: Pulse Irregular, S1, S2 Respiratory: Yes: WNL, Regular, CTA Bilaterally Gastrointestinal: Yes: WNL, Normal Bowel Sounds Genitourinary: Yes: WNL Musculoskeletal: Yes: WNL Extremities: Yes: WNL Edema: No Integumentary: Yes: WNL Neurological: Yes: WNL, Alert, Oriented ...Motor Strength: WNL Psychiatric: Yes: WNL Labs: CBC, BMP 01/11/19 06:19 INR, PTT INR 0.99 (0.83-1.09) 01/11/19 02:25 Assessment/Plan - Problems (1) Anemia Code(s): D64.9 - ANEMIA, UNSPECIFIED (2) Finger lesion Code(s): L98.9 - DISORDER OF THE SKIN AND SUBCUTANEOUS TISSUE, UNSPECIFIED (3) GI bleed Code(s): K92.2 - GASTROINTESTINAL HEMORRHAGE, UNSPECIFIED (4) Lightheadedness Code(s): R42 - DIZZINESS AND GIDDINESS (5) Failure to thrive Code(s): STY0760 - (6) HLD (hyperlipidemia) Code(s): E78.5 - HYPERLIPIDEMIA, UNSPECIFIED (7) HTN (hypertension) Code(s): I10 - ESSENTIAL (PRIMARY) HYPERTENSION (8) Pleural effusion Code(s): J90 - PLEURAL EFFUSION, NOT ELSEWHERE CLASSIFIED (9) Scleroderma Code(s): M34.9 - SYSTEMIC SCLEROSIS, UNSPECIFIED (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 Code(s): G72.0 - DRUG-INDUCED MYOPATHY; T38.0X5A - ADVERSE EFFECT OF GLUCOCORT/ SYNTH ANALOG, INIT (11) Weakness Code(s): R53.1 - WEAKNESS (12) Depression Code(s): F32.9 - MAJOR DEPRESSIVE DISORDER, SINGLE EPISODE, UNSPECIFIED (13) Hypomagnesemia Code(s): E83.42 - HYPOMAGNESEMIA (14) Chronic interstitial lung disease Code(s): J84.9 - INTERSTITIAL PULMONARY DISEASE, UNSPECIFIED (15) APC (atrial premature contractions) Code(s): I49.1 - ATRIAL PREMATURE DEPOLARIZATION (16) Atrial fibrillation Assessment/Plan: Continue diltiazem for HR control; may increase to 60 mg q8h if better HR control is required. Pt is at high risk for GI bleed; she has anemia that has required PRBCs. For consideration of systemic anticoagulation when two weeks of PPI completed. The benefits vs risks of starting anticoagulation earlier were discussed with both pt and her daughter, Vinita. Although there is a risk of AF-->embolism and CVA without anticoagulation, her high risk of bleed and potential attendant difficulty in controlling it (bragile state; scleroderma with esophageal disorder) helped decide on waiting to start anticoagulation at least a few more days. Code(s): I48.91 - UNSPECIFIED ATRIAL FIBRILLATION Qualifiers: Atrial fibrillation type: chronic Qualified Code(s): I48.2 - Chronic atrial fibrillation
[2019-01-12 08:43] LABS: BLOOD UREA NITROGEN 29.4 mg/dL (7-18); CALCIUM 8.7 mg/dL (8.5-10.1); CREATININE 0.9 mg/dL (0.55-1.3); PHOSPHOROUS 3.5 mg/dL (2.5-4.9); POTASSIUM 4.2 mmol/L (3.5-5.1)
[2019-01-12] MEDS: HEPARIN - 25,000 UNIT in SODIUM CHLORIDE 495 ML IV SCH (09:26)
[2019-01-12] MEDS: HEPARIN NA (PORCINE) 5,000 UNITS/ML 1ML VIAL IVPUSH PRN (09:27)
[2019-01-12] MEDS: FUROSEMIDE 40 MG/4 ML INJECTABLE VIAL IVPUSH SCH (09:27)
[2019-01-12] MEDS: PANTOPRAZOLE SODIUM 40 MG VIAL IVPUSH SCH ×2 (09:28→22:55)
[2019-01-12] MEDS: METOPROLOL TARTRATE 25 MG TABLET (FP) PO SCH ×2 (09:28→22:55)
[2019-01-12] MEDS: POLYETHYLENE GLYCOL 3350 119 GM BTL PO SCH (09:28)
--- NOTE | 2019-01-12 10:36 | PN ---
Progress Note, Physician Chief Complaint: Ms Dillon says she is feeling better. Still with weakness, unchanged. Not having palpitations. No cp, sob, n/v. - Current Medication List Current Medications: Active Medications Amino Acids (Prosource No Carb Liquid Pkt) 30 ml PO BID@0800,1730 [facility] Last Admin: 01/12/19 08:25 Dose: 30 ml Atorvastatin Calcium (Lipitor -) 20 mg PO HS [facility] Last Admin: 01/11/19 22:55 Dose: 20 mg Furosemide (Lasix Injection -) 20 mg IVPUSH DAILY [facility] Last Admin: 01/12/19 09:27 Dose: 20 mg Heparin Sodium (Porcine) (Heparin -) 1,000 unit IVPUSH PRN PRN PRN Reason: Heparin Heparin Sodium (Porcine) (Heparin -) 5,000 unit IVPUSH PRN PRN PRN Reason: Heparin Last Admin: 01/12/19 09:27 Dose: 5,000 unit Heparin Sodium (Porcine) 25, (000 unit/ Sodium Chloride) 500 mls @ 16 mls/hr IV TITR [facility]; Protocol Last Admin: 01/12/19 09:26 Dose: 950 unit/hr, 19 mls/hr Lactulose (Cephulac (Oral Use)) 20 gm PO TID PRN PRN Reason: CONSTIPATION Metoprolol Tartrate (Lopressor -) 25 mg PO BID [facility] Last Admin: 01/12/19 09:28 Dose: 25 mg Pantoprazole Sodium (Protonix Iv) 40 mg IVPUSH BID [facility] Last Admin: 01/12/19 09:28 Dose: 40 mg Polyethylene Glycol (Miralax (For Daily Use) -) 17 gm PO DAILY [facility] Last Admin: 01/12/19 09:28 Dose: Not Given - Objective Vital Signs: Vital Signs Temperature 36.6 C 01/12/19 10:00 Pulse Rate 118 H 01/12/19 10:00 Respiratory Rate 20 01/12/19 10:00 Blood Pressure 114/78 01/12/19 10:00 O2 Sat by Pulse Oximetry (%) 95 01/10/19 21:00 Constitutional: Yes: Well Nourished, No Distress, Calm Cardiovascular: Yes: Tachycardia, Pulse Irregular. No: Regular Rate and Rhythm , Gallop, Murmur, Rub Respiratory: Yes: Regular, On Nasal O2, Rhonchi (bilaterally). No: CTA Bilaterally, Rales, Wheezes Gastrointestinal: Yes: Normal Bowel Sounds, Soft. No: Distention, Tenderness Extremities: Yes: WNL Edema: No Labs: CBC, BMP 01/11/19 06:19 01/12/19 06:45 INR, PTT INR 0.99 (0.83-1.09) 01/11/19 02:25 Assessment/Plan (1) NSTEMI -cardiology following -troponin trending down -continue heparin gtt -continue metoprolol, may need to increase for better HR control -cannot use aspirin secondary to allergy Code(s): (2) Finger lesion -MRI finger negative Code(s): L98.9 - DISORDER OF THE SKIN AND SUBCUTANEOUS TISSUE, UNSPECIFIED (3) UTI (urinary tract infection) -urine culture negative Code(s): N39.0 - URINARY TRACT INFECTION, SITE NOT SPECIFIED (4) Atrial fibrillation -continue metoprolol and heparin gtt -as above Code(s): I48.91 - UNSPECIFIED ATRIAL FIBRILLATION Qualifiers: Atrial fibrillation type: chronic Qualified Code(s): I48.2 - Chronic atrial fibrillation (5) HLD (hyperlipidemia) -continue statin Code(s): E78.5 - HYPERLIPIDEMIA, UNSPECIFIED (6) HTN (hypertension) -continue metoprolol Code(s): I10 - ESSENTIAL (PRIMARY) HYPERTENSION (7) Scleroderma -finished prednisone taper Code(s): M34.9 - SYSTEMIC SCLEROSIS, UNSPECIFIED (8) Steroid-induced myopathy -now off of steroids Code(s): G72.0 - DRUG-INDUCED MYOPATHY; T38.0X5A - ADVERSE EFFECT OF GLUCOCORT/ SYNTH ANALOG, INIT (9) Weakness -chronic -will need SNF placement, patient agrees Code(s): R53.1 - WEAKNESS (10) GI bleed -EGD performed this admission -patient declines colonoscopy Code(s): K92.2 - GASTROINTESTINAL HEMORRHAGE, UNSPECIFIED
--- NOTE | 2019-01-12 10:50 | PN ---
Progress Note, Physician History of Present Illness: PULMONARY ALERT,COMFORTABLE,WEAK,LESS DYSPNEIC ON NASAL CANNULA - Current Medication List Current Medications: Active Medications Amino Acids (Prosource No Carb Liquid Pkt) 30 ml PO BID@0800,1730 [facility] Last Admin: 01/12/19 08:25 Dose: 30 ml Atorvastatin Calcium (Lipitor -) 20 mg PO HS [facility] Last Admin: 01/11/19 22:55 Dose: 20 mg Furosemide (Lasix Injection -) 20 mg IVPUSH DAILY [facility] Last Admin: 01/12/19 09:27 Dose: 20 mg Heparin Sodium (Porcine) (Heparin -) 1,000 unit IVPUSH PRN PRN PRN Reason: Heparin Heparin Sodium (Porcine) (Heparin -) 5,000 unit IVPUSH PRN PRN PRN Reason: Heparin Last Admin: 01/12/19 09:27 Dose: 5,000 unit Heparin Sodium (Porcine) 25, (000 unit/ Sodium Chloride) 500 mls @ 16 mls/hr IV TITR [facility]; Protocol Last Admin: 01/12/19 09:26 Dose: 950 unit/hr, 19 mls/hr Lactulose (Cephulac (Oral Use)) 20 gm PO TID PRN PRN Reason: CONSTIPATION Metoprolol Tartrate (Lopressor -) 25 mg PO BID [facility] Last Admin: 01/12/19 09:28 Dose: 25 mg Pantoprazole Sodium (Protonix Iv) 40 mg IVPUSH BID [facility] Last Admin: 01/12/19 09:28 Dose: 40 mg Polyethylene Glycol (Miralax (For Daily Use) -) 17 gm PO DAILY [facility] Last Admin: 01/12/19 09:28 Dose: Not Given - Objective Vital Signs: Vital Signs Temperature 98 F 01/12/19 10:00 Pulse Rate 118 H 01/12/19 10:00 Respiratory Rate 20 01/12/19 10:00 Blood Pressure 114/78 01/12/19 10:00 O2 Sat by Pulse Oximetry (%) 95 01/10/19 21:00 Constitutional: Yes: Calm, Thin Eyes: Yes: WNL HENT: Yes: WNL Neck: Yes: WNL Cardiovascular: Yes: Tachycardia, Pulse Irregular, S1, S2 Respiratory: Yes: Rhonchi (SCATTERED TAYLA RHONCHI) Gastrointestinal: Yes: Normal Bowel Sounds, Soft Extremities: Yes: WNL Edema: No Labs: CBC, BMP 01/11/19 06:19 01/12/19 06:45 INR, PTT INR 0.99 (0.83-1.09) 01/11/19 02:25 Problem List - Problems (1) Acute on chronic diastolic CHF (congestive heart failure) Code(s): I50.33 - ACUTE ON CHRONIC DIASTOLIC (CONGESTIVE) HEART FAILURE (2) APC (atrial premature contractions) Code(s): I49.1 - ATRIAL PREMATURE DEPOLARIZATION (3) Chronic interstitial lung disease Code(s): J84.9 - INTERSTITIAL PULMONARY DISEASE, UNSPECIFIED (4) Scleroderma Code(s): M34.9 - SYSTEMIC SCLEROSIS, UNSPECIFIED (5) Atrial fibrillation Code(s): I48.91 - UNSPECIFIED ATRIAL FIBRILLATION Qualifiers: Atrial fibrillation type: chronic Qualified Code(s): I48.2 - Chronic atrial fibrillation (6) HLD (hyperlipidemia) Code(s): E78.5 - HYPERLIPIDEMIA, UNSPECIFIED (7) HTN (hypertension) Code(s): I10 - ESSENTIAL (PRIMARY) HYPERTENSION Assessment/Plan ASSESSMENT AND PLAN: Altered Mental Status likely from benzodiazepine improved Acute on Chronic Diastolic Heart Failure +Troponins likely Demand Ischemia Scleroderma HTN Hyperlipidemia Atrial Fibrillation vs PACs - lasix - monitor urine output, creatinine - rate control - O2 to keep Spo2 >90% - aspiration precautions - monitor H/H - inhaled bronchodilators - DVT prophylaxis - ROMIE GARDNER
[2019-01-12] MEDS: ATORVASTATIN CA 20 MG TABLET (FP) PO SCH (22:54)
[2019-01-13] MEDS ORDERED: METOPROLOL TARTRATE 5 MG/5 ML VIAL IVPUSH ONE (05:03)
[2019-01-13] MEDS ORDERED: FUROSEMIDE 40 MG/4 ML INJECTABLE VIAL IVPUSH ONE ×3 (05:04→12:00)
--- NOTE | 2019-01-13 05:07 | PN ---
Progress Note (short form) - Note Progress Note: Paged for Pt. having increased dyspnea. Pt found to desaturate to 70s on NC. VS : 162/81, HR 132, SpO2: 77% On PE: Pt. is awake A&O x 3, diffuse crackles anteriorly and in axilla, tachycardic to 140s, irregular rate and rhythm. Pt. placed on NRB; CXR, ABG, Lopressor 5mg, and 20mg IVP Lasix ordered to increase diuresis and for better rate control of known CHFpEF and Afib. Will bladder scan in the AM as Pt. was also retaining urine (~650cc) overnight requiring straight catherization. Pending ABG results will start BiPAP. <Chuy Tapia - Last Filed: 01/13/19 19:06> - Note Progress Note: Agree with above; presents for all vital parts of encounter <Buck Jacobs - Last Filed: 01/21/19 19:53>
[2019-01-13] MEDS ORDERED: FUROSEMIDE 40 MG/4 ML INJECTABLE VIAL ONE (05:10)
[2019-01-13 05:54] LABS: ARTERIAL BLD GAS O2 SATURATION 99.6 % (95-98); ARTERIAL BLOOD GAS BASE EXCESS 1.7 meq/l (-2-2); ARTERIAL BLOOD GAS PCO2 38.4 mmHg (35-45); ARTERIAL BLOOD GAS PO2 237 mmHg (80-105); ARTERIAL BLOOD GAS pH 7.44 (7.35-7.45)
[2019-01-13 05:55] LABS: ALLENS TEST POSITIVE
--- NOTE | 2019-01-13 08:02 | PN ---
Physical Exam: SUBJECTIVE: Patient seen and examined Patient resting in bed nad. afebrile hemodynamically stable, AF rate under 115 bpm on tele. had palpitaions on sun was found to be in afrvr, cardizem changed to lopressor. developed troponemia with new lateral t inversions on EKG. last night developed hypoxia 70's % O2 in NC, was placed on 100% nonrebreather, given lasix iv 20 and lopressor 5 iv push. retaining urine again yesterday requiring straight cath. Currently has palpitations but denies cp, sob, lightheadedness. denies melena, hematochezia. feels weak, but was able to walk around the room with pt. still retaining urine, wilson inserted last night. denies pelvic pain or dysuria OBJECTIVE: Vital Signs Period Temp Pulse Resp BP Sys/Stewart Pulse Ox Last 24 Hr 98 F-98.3 F 116-144 20-28 104-154/65-85 96-97 GENERAL: The patient is awake, alert, and fully oriented, in no acute distress. HEAD: Normal with no signs of trauma. EYES: PERRL, extraocular movements intact, sclera anicteric, conjunctiva clear. No ptosis. ENT: moist mucous membranes. NECK: supple. LUNGS: bibasilar ronchi HEART: irregular, s1s2 ABDOMEN: Soft, nontender, nondistended, normoactive bowel sounds EXTREMITIES: 2+ pulses, warm, well-perfused, no edema. NEUROLOGICAL: Cranial nerves II through XII grossly intact. Normal speech, gait not observed. PSYCH: Normal mood, normal affect. SKIN: Warm, dry Laboratory Results - last 24 hr 01/12/19 01/12/19 01/12/19 06:45 06:45 16:00 PTT (Actin FS) 37.7 H 61.7 H Anticoagulation Therapy Puncture Site ABG pH ABG pCO2 at Pt Temp ABG pO2 at Pt Temp ABG HCO3 ABG O2 Sat (Measured) ABG O2 Content ABG Base Excess Erik Test O2 Delivery Device Oxygen Flow Rate Vent Mode Vent Rate Mechanical Rate Pressure Support Vent Sodium 139 Potassium 4.2 Chloride 104 Carbon Dioxide 27 Anion Gap 8 BUN 29.4 H Creatinine 0.9 Est GFR (CKD-EPI)AfAm 68.05 Est GFR (CKD-EPI)NonAf 58.71 Random Glucose 109 H Calcium 8.7 Phosphorus 3.5 Magnesium 2.0 Creatine Kinase 46 Troponin I 1.91 H* 01/13/19 05:40 PTT (Actin FS) Anticoagulation Therapy No Result Required. Puncture Site Right radial ABG pH 7.44 ABG pCO2 at Pt Temp 38.4 ABG pO2 at Pt Temp 237 H ABG HCO3 25.4 ABG O2 Sat (Measured) 99.6 H ABG O2 Content 12.7 L ABG Base Excess 1.7 Erik Test Positive O2 Delivery Device Nrm Oxygen Flow Rate 100% Vent Mode No Result Required. Vent Rate No Result Required. Mechanical Rate No Result Required. Pressure Support Vent No Result Required. Sodium Potassium Chloride Carbon Dioxide Anion Gap BUN Creatinine Est GFR (CKD-EPI)AfAm Est GFR (CKD-EPI)NonAf Random Glucose Calcium Phosphorus Magnesium Creatine Kinase Troponin I Active Medications Generic Name Dose Route Start Last Admin Trade Name Freq PRN Reason Stop Dose Admin Amino Acids 30 ml 01/05/19 17:30 01/12/19 18:30 Prosource No Carb Liquid Pkt PO 30 ml BID@0800,1730 [facility] Administration Atorvastatin Calcium 20 mg 01/05/19 22:00 01/12/19 22:54 Lipitor - PO 20 mg HS [facility] Administration Furosemide 20 mg 01/06/19 10:00 01/12/19 09:27 Lasix Injection - IVPUSH 20 mg DAILY [facility] Administration Heparin Sodium (Porcine) 1,000 unit 01/11/19 01:56 Heparin - IVPUSH PRN PRN Heparin Heparin Sodium (Porcine) 5,000 unit 01/11/19 01:56 01/12/19 09:27 Heparin - IVPUSH 5,000 unit PRN PRN Administration Heparin Heparin Sodium (Porcine) 25, 500 mls @ 16 mls/hr 01/11/19 02:30 01/12/19 09: 26 000 unit/ Sodium Chloride IV 950 unit/hr TITR [facility] 19 mls/hr Administration Protocol 800 UNIT/HR Lactulose 20 gm 01/08/19 17:17 Cephulac (Oral Use) PO TID PRN CONSTIPATION Metoprolol Tartrate 25 mg 01/11/19 10:00 01/12/19 22:55 Lopressor - PO 25 mg BID [facility] Administration Pantoprazole Sodium 40 mg 01/05/19 22:00 01/12/19 22:55 Protonix Iv IVPUSH 40 mg BID [facility] Administration Polyethylene Glycol 17 gm 01/07/19 13:00 01/12/19 09:28 Miralax (For Daily Use) - PO Not Given DAILY [facility] ASSESSMENT/PLAN: This is an 83 yo F with PMH of hyponatremia with syncope, htn, hld, Raynaud's, Scleroderma, bibems due to near syncope. Patient was sitting on the toilet earlier today, not straining, not actively passing urine or stool when she suddenly felt very dizzy, denies associated flushing, palpitations, cp, nausea. New AF RVR Acute HFPEF exacerbation Troponemia possible nstemi Acute hypoxic respiratory failure GIB w acute blood loss anemia Severe distal esophagitis near syncope R thumb lesion normocytic anemia Raynauds Scleroderma severe protein calorie malnutrition urinary retention -increase lopressor to 37.5 bid -increase lasix to 80 mg d iv -BiPAP HS -trops peaked. demand vs nstemi. not a cath candidate due to recent gib -af was probably present in rk past paroxysmally since the L atrium severely dilated on TTE -cardio consult appreciated -s/p EGD no occult bleeding seen -hemodynamically stable. hgb 8.9 -continue PPI bid x 2 w total -Fe studies reviewed; venofer -GI note apprecited, AC is permissible. patient declines ac -patient declines colonoscopy -near syncope likely vasovagal or orthostatic due to dehydration; af and anemia may be contributing. -R thumb calcinosis -wilson inserted, f/u repeat urine culture, multiple abx allergies; Abx per ID for symptomatic uti -plan rehab Problem List - Problems (1) Finger lesion Code(s): L98.9 - DISORDER OF THE SKIN AND SUBCUTANEOUS TISSUE, UNSPECIFIED (2) Near syncope Code(s): R55 - SYNCOPE AND COLLAPSE (3) Raynauds disease Code(s): I73.00 - RAYNAUD'S SYNDROME WITHOUT GANGRENE (4) Scleroderma Code(s): M34.9 - SYSTEMIC SCLEROSIS, UNSPECIFIED (5) HLD (hyperlipidemia) Code(s): E78.5 - HYPERLIPIDEMIA, UNSPECIFIED (6) HTN (hypertension) Code(s): I10 - ESSENTIAL (PRIMARY) HYPERTENSION (7) UTI (urinary tract infection) Code(s): N39.0 - URINARY TRACT INFECTION, SITE NOT SPECIFIED (8) Severe protein-calorie malnutrition Code(s): E43 - UNSPECIFIED SEVERE PROTEIN-CALORIE MALNUTRITION Visit type - Emergency Visit Emergency Visit: Yes ED Registration Date: 12/30/18 Care time: The patient presented to the Emergency Department on the above date and was hospitalized for further evaluation of their emergent condition. - New Patient This patient is new to me today: No - Critical Care Critical Care patient: No - Discharge Referral Referred to [facility] Med P.C.: No
[2019-01-13] MEDS ORDERED: FUROSEMIDE 40 MG/4 ML INJECTABLE VIAL IVPUSH SCH ×3 (08:06→09:16)
[2019-01-13] MEDS ORDERED: METOPROLOL TARTRATE 50 MG TABLET (FP) PO SCH (08:06)
[2019-01-13 08:07] LABS: BASO % 0.6 % (0-2.0); HEMATOCRIT 26.2 % (32.4-45.2); HEMOGLOBIN 8.7 GM/dL (10.7-15.3); LYMPH % 9.8 % (8-40); MCH 29.9 pg (25.7-33.7); MCHC 33.4 g/dl (32.0-36.0); MEAN CELL VOLUME 89.6 fl (80-96); MEAN PLT VOLUME 8.4 fl (7.5-11.1); MONO % 2.8 % (3.8-10.2); NEUT % 86.8 % (42.8-82.8); RBC 2.92 M/mm3 (3.60-5.2); WHITE BLOOD COUNT 13.9 K/mm3 (4.0-10.0)
[2019-01-13 08:24] LABS: BLOOD UREA NITROGEN 26.5 mg/dL (7-18); CALCIUM 8.5 mg/dL (8.5-10.1); CREATININE 0.9 mg/dL (0.55-1.3); MAGNESIUM 2.1 mg/dL (1.8-2.4); PHOSPHOROUS 4.1 mg/dL (2.5-4.9); POTASSIUM 3.8 mmol/L (3.5-5.1)
[2019-01-13] MEDS: PANTOPRAZOLE SODIUM 40 MG VIAL IVPUSH SCH ×2 (10:20→21:48)
[2019-01-13] MEDS: HEPARIN NA (PORCINE) 5,000 UNITS/ML 1ML VIAL IVPUSH PRN ×2 (10:20→18:41)
[2019-01-13] MEDS: METOPROLOL TARTRATE 25 MG TABLET (FP) PO SCH ×2 (10:21→21:48)
[2019-01-13] MEDS: POLYETHYLENE GLYCOL 3350 119 GM BTL PO SCH (10:21)
[2019-01-13] MEDS: HEPARIN - 25,000 UNIT in SODIUM CHLORIDE 495 ML IV SCH ×2 (10:22→18:39)
[2019-01-13] MEDS: AMINO ACIDS/PROTEIN HYDROLYS 30 ML LIQUID.PKT PO SCH ×2 (10:22→17:51)
--- NOTE | 2019-01-13 10:30 | EKG ---
Test Reason : Blood Pressure : / mmHG Vent. Rate : 104 BPM Atrial Rate : 159 BPM P-R Int : 000 ms QRS Dur : 092 ms QT Int : 368 ms P-R-T Axes : 000 -36 117 degrees QTc Int : 483 ms ATRIAL FIBRILLATION WITH RAPID VENTRICULAR RESPONSE WITH PREMATURE VENTRICULAR OR ABERRANTLY CONDUCTED COMPLEXES LEFT AXIS DEVIATION ABNORMAL QRS-T ANGLE, CONSIDER PRIMARY T WAVE ABNORMALITY ABNORMAL ECG Confirmed by MD GERRY, SONJA ([id number]) on 01/13/2019 10:30:28 AM Referred By: Markie GARCIA Confirmed By:SONJA GARRETT MD
--- NOTE | 2019-01-13 10:36 | PN ---
Teaching Attending Note Name of Resident: Kamila Greenberg ATTENDING PHYSICIAN STATEMENT I saw and evaluated the patient. I reviewed the resident's note and discussed the case with the resident. I agree with the resident's findings and plan as documented. SUBJECTIVE: Ms Dillon says she is feeling really bad today. Says she had a rough night, now is having difficulty breathing and palpitations earlier. No cp or n/v. OBJECTIVE: Last Vital Signs Temp Pulse Resp BP Pulse Ox 36.8 C 116 H 26 H 136/79 97 01/13/19 02:05 01/13/19 05:16 01/13/19 05:16 01/13/19 05:16 01/12/19 21:00 Gen: moderate distress Pulm: increased bilateral ronchi in all lung mejia CV: irreg irreg and tachy w/o m/r/g Abd: +bs, s/nt/nd Ext: no c/c/e CBC, BMP 01/13/19 07:02 01/13/19 07:02 ASSESSMENT AND PLAN: (1) NSTEMI -case d/w cardiology -patient with worsening cardiac function -increasing fluid retention/pulmonary edema -now with acute hypoxic respiratory failure -continue heparin gtt -increase metoprolol -increase lasix -may benefit from transfer for more acute care -oxygen support Code(s): (2) Finger lesion -MRI finger negative Code(s): L98.9 - DISORDER OF THE SKIN AND SUBCUTANEOUS TISSUE, UNSPECIFIED (3) UTI (urinary tract infection) -urine culture negative Code(s): N39.0 - URINARY TRACT INFECTION, SITE NOT SPECIFIED (4) Atrial fibrillation -increase metoprolol for better control -diurese to relieve intrapulmonary pressure -continue heparin gtt Code(s): I48.91 - UNSPECIFIED ATRIAL FIBRILLATION Qualifiers: Atrial fibrillation type: chronic Qualified Code(s): I48.2 - Chronic atrial fibrillation (5) HLD (hyperlipidemia) -continue statin Code(s): E78.5 - HYPERLIPIDEMIA, UNSPECIFIED (6) HTN (hypertension) -continue metoprolol Code(s): I10 - ESSENTIAL (PRIMARY) HYPERTENSION (7) Scleroderma -finished prednisone taper -suspect contributing to respiratory failure Code(s): M34.9 - SYSTEMIC SCLEROSIS, UNSPECIFIED (8) Steroid-induced myopathy -now off of steroids Code(s): G72.0 - DRUG-INDUCED MYOPATHY; T38.0X5A - ADVERSE EFFECT OF GLUCOCORT/ SYNTH ANALOG, INIT (9) GI bleed -EGD performed this admission -currently stable Code(s): K92.2 - GASTROINTESTINAL HEMORRHAGE, UNSPECIFIED
--- NOTE | 2019-01-13 11:19 | PN ---
Progress Note, Physician Chief Complaint: Pt A&Ox3; had a "very bad day" yesterday and last night; she had trouble breathing (now had O2 changed and increased to 100% non-rebreather), and feels weak, with no appetite. C/o pain in her calves. 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 She notes her nurse has noticed her stool has been black for the past week, which she believes is related to taking iron daily. Today, patient notes she began feeling lightheaded , "like she was going to pass out," upon getting up and trying to go to the bathroom 2.5 hours ago (she ambulates with a walker at baseline). She reports immediately sitting down as she thought she was going to fall and her symptoms self-resolved after 15 minutes. As per patients daughter, she notes the patient has had symptoms similar to this before when she has had an UTI. Patient endorses mild chills, diaphoresis, and generalized weakness while in the ED. She is currently on a tapered dose of Prednisone for her Raynaud's but denies currently being on antibiotics for last UTI. Pt denies any dysarthria, headache, neck pain, diplopia, numbness/tingling/weakness, cp, back pain. The patient denies shortness of breath, and headache. Denies fever, nausea, vomit, diarrhea and constipation. Denies dysuria, frequency, urgency and hematuria. Allergies: Aspirin, cephalexin, ciprofloxacin, penicillins, quinolones Past surgical history: appendectomy, abdominal surgery, orthopedic surgery Social history: No reported PCP: Dr. Enmanuel Girard - Current Medication List Current Medications: Active Medications Amino Acids (Prosource No Carb Liquid Pkt) 30 ml PO BID@0800,1730 [facility] Last Admin: 01/13/19 10:22 Dose: 30 ml Atorvastatin Calcium (Lipitor -) 20 mg PO HS [facility] Last Admin: 01/12/19 22:54 Dose: 20 mg Furosemide (Lasix Injection -) 40 mg IVPUSH DAILY [facility] Heparin Sodium (Porcine) (Heparin -) 1,000 unit IVPUSH PRN PRN PRN Reason: Heparin Last Admin: 01/13/19 10:20 Dose: 1,000 unit Heparin Sodium (Porcine) (Heparin -) 5,000 unit IVPUSH PRN PRN PRN Reason: Heparin Last Admin: 01/12/19 09:27 Dose: 5,000 unit Heparin Sodium (Porcine) 25, (000 unit/ Sodium Chloride) 500 mls @ 16 mls/hr IV TITR [facility]; Protocol Last Admin: 01/13/19 10:22 Dose: 1,050 unit/hr, 21 mls/hr Lactulose (Cephulac (Oral Use)) 20 gm PO TID PRN PRN Reason: CONSTIPATION Metoprolol Tartrate (Lopressor -) 37.5 mg PO BID [facility] Last Admin: 01/13/19 10:21 Dose: 37.5 mg Pantoprazole Sodium (Protonix Iv) 40 mg IVPUSH BID [facility] Last Admin: 01/13/19 10:20 Dose: 40 mg Polyethylene Glycol (Miralax (For Daily Use) -) 17 gm PO DAILY [facility] Last Admin: 01/13/19 10:21 Dose: Not Given - Objective Vital Signs: Vital Signs Temperature 98 F 01/13/19 10:00 Pulse Rate 120 H 01/13/19 10:00 Respiratory Rate 24 H 01/13/19 10:00 Blood Pressure 125/81 01/13/19 10:00 O2 Sat by Pulse Oximetry (%) 97 01/12/19 21:00 Constitutional: Yes: Anxious, Thin Eyes: Yes: WNL HENT: Yes: WNL Neck: Yes: Decreased ROM Cardiovascular: Yes: Tachycardia, Pulse Irregular, S1 (varies in intensity), S2 Respiratory: Yes: Diminished Gastrointestinal: Yes: Soft ...Rectal Exam: Yes: Deferred Genitourinary: No: Anuria Breast(s): Yes: WNL Musculoskeletal: Yes: Muscle Weakness Edema: No Peripheral Pulses WNL: No Peripheral Pulses: Left Doralis Pedis: 1+, Right Dorsalis Pedis: 1+ Integumentary: Yes: Venous Stasis Changes Neurological: Yes: Alert, Oriented, Weakness Psychiatric: Yes: Other (anxiety/depression) Labs: CBC, BMP 01/13/19 07:02 01/13/19 07:02 INR, PTT INR 0.99 (0.83-1.09) 01/11/19 02:25 Abnormal Lab Results 01/12/19 01/13/19 01/13/19 16:00 05:40 07:02 WBC RBC Hgb Hct RDW Plt Count Absolute Neuts (auto) Neutrophils % Monocytes % PTT (Actin FS) 61.7 H 42.7 H ABG pO2 at Pt Temp 237 H ABG O2 Sat (Measured) 99.6 H ABG O2 Content 12.7 L Anion Gap BUN Random Glucose 01/13/19 01/13/19 07:02 07:02 WBC 13.9 H RBC 2.92 L Hgb 8.7 L Hct 26.2 L RDW 18.0 H Plt Count 504 H D Absolute Neuts (auto) 12.1 H Neutrophils % 86.8 H D Monocytes % 2.8 L PTT (Actin FS) ABG pO2 at Pt Temp ABG O2 Sat (Measured) ABG O2 Content Anion Gap 5 L BUN 26.5 H Random Glucose 117 H - ....Imaging Chest X-ray: Image Reviewed (extensive (and worsening) congesive changes) Other: Image Reviewed (telemetry: AF; periods of RVR) Problem List - Problems (1) Anemia Assessment/Plan: Hb relaively stable today at 8.7. On IV heparin; may consider change to PO agent (DOAC). Code(s): D64.9 - ANEMIA, UNSPECIFIED (2) Finger lesion Assessment/Plan: 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 (Any potential therapy should take into consideration pt's scleroderma). Code(s): L98.9 - DISORDER OF THE SKIN AND SUBCUTANEOUS TISSUE, UNSPECIFIED (3) GI bleed Code(s): K92.2 - GASTROINTESTINAL HEMORRHAGE, UNSPECIFIED (4) Lightheadedness Assessment/Plan: orthostatic VS maintain hydration. F/u electrolytes. Code(s): R42 - DIZZINESS AND GIDDINESS (5) Failure to thrive Code(s): [id number] - (6) HLD (hyperlipidemia) Code(s): E78.5 - HYPERLIPIDEMIA, UNSPECIFIED (7) HTN (hypertension) Assessment/Plan: On valsartan, metoprolol anf furosemide. Code(s): I10 - ESSENTIAL (PRIMARY) HYPERTENSION (8) Pleural effusion Code(s): J90 - PLEURAL EFFUSION, NOT ELSEWHERE CLASSIFIED (9) Scleroderma Assessment/Plan: CREST syndrome. Metoprolol was restarted (despite Raynaud's)(and diltizem discontinued) due to increase in TNI; also for HR control with AF. Code(s): M34.9 - SYSTEMIC SCLEROSIS, UNSPECIFIED (10) Weakness Code(s): R53.1 - WEAKNESS (11) Depression Assessment/Plan: Pt worries about her own health and that of her 's. Code(s): F32.9 - MAJOR DEPRESSIVE DISORDER, SINGLE EPISODE, UNSPECIFIED (12) Hypomagnesemia Assessment/Plan: Keep level 2-2.4. Keep K+ 4-4.5. Code(s): E83.42 - HYPOMAGNESEMIA (13) Chronic interstitial lung disease Assessment/Plan: f/u with knitting teacher. Code(s): J84.9 - INTERSTITIAL PULMONARY DISEASE, UNSPECIFIED (14) Atrial fibrillation Assessment/Plan: Continue metoprolol for HR control; (increased from 25 to 37.5 mg bid). Pt is at high risk for GI bleed; she has anemia that has required PRBCs. Nevertheless, IV heparin was started for AF and increased TNI; Hb stable. Code(s): I48.91 - UNSPECIFIED ATRIAL FIBRILLATION Qualifiers: Atrial fibrillation type: chronic Qualified Code(s): I48.2 - Chronic atrial fibrillation (15) Diastolic dysfunction Code(s): I51.89 - OTHER ILL-DEFINED HEART DISEASES (16) Elevated troponin Assessment/Plan: TNI decreasing from high of 3.6. No significant EKG changes. Likely demand ischemia; contributing factors include CHF, anemia, PSS, anxiety, pain, AF with RVR. However, vascular disease generally and myocardial fibrosis ( exacerbated by pulmonary disease) with increase in MS are increased with scleroderma, and portend poor prognosis. Placed on IV heparin; may consider change to DOAC. Problematic considering coronary angiogram (stent would require dual antiplatelet Rx, with pt at high risk for bleed; overall health would mitigate against CABG). Control HR; increase metoprolol (changed from diltiazem due to new findings of palpitations and elevated TNi; pt did not feel improvement in hands while on diltizem). Code(s): R74.8 - ABNORMAL LEVELS OF OTHER SERUM ENZYMES (17) Raynaud's phenomenon Code(s): I73.00 - RAYNAUD'S SYNDROME WITHOUT GANGRENE
--- NOTE | 2019-01-13 11:25 | PN ---
Progress Note, Physician History of Present Illness: PULMONARY ALER,DEVELOPED ACUTE RESP DISTRESS ,HYPOXIC,PLACED ON 100% NRB,GIVEN LASIX WITH SOME IMPROVEMENT - Current Medication List Current Medications: Active Medications Amino Acids (Prosource No Carb Liquid Pkt) 30 ml PO BID@0800,1730 [facility] Last Admin: 01/13/19 10:22 Dose: 30 ml Atorvastatin Calcium (Lipitor -) 20 mg PO HS [facility] Last Admin: 01/12/19 22:54 Dose: 20 mg Furosemide (Lasix Injection -) 40 mg IVPUSH DAILY [facility] Heparin Sodium (Porcine) (Heparin -) 1,000 unit IVPUSH PRN PRN PRN Reason: Heparin Last Admin: 01/13/19 10:20 Dose: 1,000 unit Heparin Sodium (Porcine) (Heparin -) 5,000 unit IVPUSH PRN PRN PRN Reason: Heparin Last Admin: 01/12/19 09:27 Dose: 5,000 unit Heparin Sodium (Porcine) 25, (000 unit/ Sodium Chloride) 500 mls @ 16 mls/hr IV TITR [facility]; Protocol Last Admin: 01/13/19 10:22 Dose: 1,050 unit/hr, 21 mls/hr Lactulose (Cephulac (Oral Use)) 20 gm PO TID PRN PRN Reason: CONSTIPATION Metoprolol Tartrate (Lopressor -) 37.5 mg PO BID [facility] Last Admin: 01/13/19 10:21 Dose: 37.5 mg Pantoprazole Sodium (Protonix Iv) 40 mg IVPUSH BID [facility] Last Admin: 01/13/19 10:20 Dose: 40 mg Polyethylene Glycol (Miralax (For Daily Use) -) 17 gm PO DAILY [facility] Last Admin: 01/13/19 10:21 Dose: Not Given - Objective Vital Signs: Vital Signs Temperature 98 F 01/13/19 10:00 Pulse Rate 120 H 01/13/19 10:00 Respiratory Rate 24 H 01/13/19 10:00 Blood Pressure 125/81 01/13/19 10:00 O2 Sat by Pulse Oximetry (%) 97 01/12/19 21:00 Constitutional: Yes: Calm, Other (DYSPNEIC) Eyes: Yes: WNL HENT: Yes: WNL Neck: Yes: WNL Cardiovascular: Yes: Tachycardia, Pulse Irregular, S1, S2 Respiratory: Yes: Rales (BILATERAL CRACKLES) Gastrointestinal: Yes: Normal Bowel Sounds, Soft Extremities: Yes: WNL Edema: No Labs: CBC, BMP 01/13/19 07:02 01/13/19 07:02 INR, PTT INR 0.99 (0.83-1.09) 01/11/19 02:25 - ....Imaging Chest X-ray: Report Reviewed, Image Reviewed (INCREASED CONGESTION BILATERALLY) Problem List - Problems (1) Acute on chronic diastolic CHF (congestive heart failure) Code(s): I50.33 - ACUTE ON CHRONIC DIASTOLIC (CONGESTIVE) HEART FAILURE (2) APC (atrial premature contractions) Code(s): I49.1 - ATRIAL PREMATURE DEPOLARIZATION (3) Chronic interstitial lung disease Code(s): J84.9 - INTERSTITIAL PULMONARY DISEASE, UNSPECIFIED (4) Scleroderma Code(s): M34.9 - SYSTEMIC SCLEROSIS, UNSPECIFIED (5) Atrial fibrillation Code(s): I48.91 - UNSPECIFIED ATRIAL FIBRILLATION Qualifiers: Qualified Code(s): I48.2 - Chronic atrial fibrillation (6) HLD (hyperlipidemia) Code(s): E78.5 - HYPERLIPIDEMIA, UNSPECIFIED (7) HTN (hypertension) Code(s): I10 - ESSENTIAL (PRIMARY) HYPERTENSION Assessment/Plan ASSESSMENT AND PLAN: Altered Mental Status likely from benzodiazepine improved Acute on Chronic Diastolic Heart Failure +Troponins likely Demand Ischemia Scleroderma HTN Hyperlipidemia Atrial Fibrillation - lasix - monitor urine output, creatinine - rate control as per cardiology - O2 to keep Spo2 >90% - aspiration precautions - monitor H/H - inhaled bronchodilators - DVT prophylaxis - ROMIE GARDNER
[2019-01-13 11:51] LABS: PLATELET COUNT 504 K/MM3 (134-434)
[2019-01-13] MEDS: ATORVASTATIN CA 20 MG TABLET (FP) PO SCH (21:48)
[2019-01-14 07:01] LABS: HEMATOCRIT 24.7 % (32.4-45.2); HEMOGLOBIN 8.3 GM/dL (10.7-15.3); MCH 29.8 pg (25.7-33.7); MCHC 33.6 g/dl (32.0-36.0); MEAN CELL VOLUME 88.6 fl (80-96); PLATELET COUNT 561 K/MM3 (134-434); RBC 2.79 M/mm3 (3.60-5.2); WHITE BLOOD COUNT 11.1 K/mm3 (4.0-10.0)
[2019-01-14 07:37] LABS: BLOOD UREA NITROGEN 31.2 mg/dL (7-18); CALCIUM 8.3 mg/dL (8.5-10.1); CREATININE 0.9 mg/dL (0.55-1.3); PHOSPHOROUS 4.3 mg/dL (2.5-4.9); POTASSIUM 3.2 mmol/L (3.5-5.1)
--- NOTE | 2019-01-14 07:40 | PN ---
Progress Note, Physician Chief Complaint: Pt A&Ox3; dyspneic on minimal exertion; generalized weakness; does not feel like eating. TNI taken overnight because of c/o palpitations. TNI markedly increased (to 3.68 ) from prior TNI several days ago (0.26); no EKG changes. 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 She notes her nurse has noticed her stool has been black for the past week, which she believes is related to taking iron daily. Today, patient notes she began feeling lightheaded , "like she was going to pass out," upon getting up and trying to go to the bathroom 2.5 hours ago (she ambulates with a walker at baseline). She reports immediately sitting down as she thought she was going to fall and her symptoms self-resolved after 15 minutes. As per patients daughter, she notes the patient has had symptoms similar to this before when she has had an UTI. Patient endorses mild chills, diaphoresis, and generalized weakness while in the ED. She is currently on a tapered dose of Prednisone for her Raynaud's but denies currently being on antibiotics for last UTI. Pt denies any dysarthria, headache, neck pain, diplopia, numbness/tingling/weakness, cp, back pain. The patient denies shortness of breath, and headache. Denies fever, nausea, vomit, diarrhea and constipation. Denies dysuria, frequency, urgency and hematuria. Allergies: Aspirin, cephalexin, ciprofloxacin, penicillins, quinolones Past surgical history: appendectomy, abdominal surgery, orthopedic surgery Social history: No reported PCP: Dr. Enmanuel Schirripa - Current Medication List Current Medications: Active Medications Amino Acids (Prosource No Carb Liquid Pkt) 30 ml PO BID@0800,1730 [facility] Last Admin: 01/13/19 17:51 Dose: 30 ml Atorvastatin Calcium (Lipitor -) 20 mg PO HS [facility] Last Admin: 01/13/19 21:48 Dose: 20 mg Furosemide (Lasix Injection -) 80 mg IVPUSH DAILY [facility] Heparin Sodium (Porcine) (Heparin -) 1,000 unit IVPUSH PRN PRN PRN Reason: Heparin Last Admin: 01/13/19 18:41 Dose: 1,000 unit Heparin Sodium (Porcine) (Heparin -) 5,000 unit IVPUSH PRN PRN PRN Reason: Heparin Last Admin: 01/12/19 09:27 Dose: 5,000 unit Heparin Sodium (Porcine) 25, (000 unit/ Sodium Chloride) 500 mls @ 16 mls/hr IV TITR [facility]; Protocol Last Admin: 01/13/19 18:39 Dose: 1,150 unit/hr, 23 mls/hr Lactulose (Cephulac (Oral Use)) 20 gm PO TID PRN PRN Reason: CONSTIPATION Metoprolol Tartrate (Lopressor -) 37.5 mg PO BID [facility] Last Admin: 01/13/19 21:48 Dose: 37.5 mg Pantoprazole Sodium (Protonix Iv) 40 mg IVPUSH BID [facility] Last Admin: 01/13/19 21:48 Dose: 40 mg Polyethylene Glycol (Miralax (For Daily Use) -) 17 gm PO DAILY [facility] Last Admin: 01/13/19 10:21 Dose: Not Given - Objective Vital Signs: Vital Signs Temperature 98.0 F 01/14/19 06:00 Pulse Rate 90 01/14/19 06:00 Respiratory Rate 20 01/14/19 06:00 Blood Pressure 115/68 01/14/19 06:00 O2 Sat by Pulse Oximetry (%) 95 01/13/19 21:00 Constitutional: Yes: Anxious Eyes: Yes: WNL HENT: Yes: WNL Neck: Yes: Decreased ROM Cardiovascular: Yes: S1 (varies in intensity), S2 Respiratory: Yes: Diminished, Tachypnea Gastrointestinal: Yes: Soft ...Rectal Exam: Yes: Deferred Genitourinary: No: Anuria Breast(s): Yes: WNL Musculoskeletal: Yes: Joint Stiffness, Muscle Weakness Extremities: Yes: Cool Edema: No Peripheral Pulses WNL: No Peripheral Pulses: Left Doralis Pedis: 1+, Right Dorsalis Pedis: 1+ Integumentary: Yes: Bruising (LEs) Neurological: Yes: Alert, Oriented, Weakness Psychiatric: Yes: Alert, Oriented, Other (depression) Labs: CBC, BMP 01/14/19 06:30 INR, PTT INR 0.99 (0.83-1.09) 01/11/19 02:25 - ....Imaging Other: Image Reviewed (telemetry: AF with RVR) Problem List - Problems (1) Anemia Assessment/Plan: Hb relatively stable; on IV heparin for AF Code(s): D64.9 - ANEMIA, UNSPECIFIED (2) Finger lesion Code(s): L98.9 - DISORDER OF THE SKIN AND SUBCUTANEOUS TISSUE, UNSPECIFIED (3) GI bleed Code(s): K92.2 - GASTROINTESTINAL HEMORRHAGE, UNSPECIFIED (4) Lightheadedness Code(s): R42 - DIZZINESS AND GIDDINESS (5) Failure to thrive Code(s): [id number] - (6) HLD (hyperlipidemia) Code(s): E78.5 - HYPERLIPIDEMIA, UNSPECIFIED (7) HTN (hypertension) Code(s): I10 - ESSENTIAL (PRIMARY) HYPERTENSION (8) Pleural effusion Code(s): J90 - PLEURAL EFFUSION, NOT ELSEWHERE CLASSIFIED (9) Scleroderma Code(s): M34.9 - SYSTEMIC SCLEROSIS, UNSPECIFIED (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 Code(s): G72.0 - DRUG-INDUCED MYOPATHY; T38.0X5A - ADVERSE EFFECT OF GLUCOCORT/ SYNTH ANALOG, INIT (11) Weakness Code(s): R53.1 - WEAKNESS (12) Depression Code(s): F32.9 - MAJOR DEPRESSIVE DISORDER, SINGLE EPISODE, UNSPECIFIED (13) Hypomagnesemia Code(s): E83.42 - HYPOMAGNESEMIA (14) Chronic interstitial lung disease Code(s): J84.9 - INTERSTITIAL PULMONARY DISEASE, UNSPECIFIED (15) Atrial fibrillation Code(s): I48.91 - UNSPECIFIED ATRIAL FIBRILLATION Qualifiers: Atrial fibrillation type: chronic Qualified Code(s): I48.2 - Chronic atrial fibrillation (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 No significant EKG changes. Likely demand ischemia; contributing factors include CHF, anemia, PSS, anxiety, pain, AF with RVR. Placed on IV heparin; f/u Hb, stool quaiac. Problematic considering coronary angiogram (stent would require dual antiplatelet Rx, with pt at high risk for bleed; overall health would mitigate against CABG). Control HR; increase metoprolol (changed from diltiazem due to new findings of palpitations and elevated TNi; pt did not feel improvement in hands while on diltizem). Code(s): R74.8 - ABNORMAL LEVELS OF OTHER SERUM ENZYMES
[2019-01-14] MEDS: AMINO ACIDS/PROTEIN HYDROLYS 30 ML LIQUID.PKT PO SCH ×2 (09:08→18:47)
[2019-01-14] MEDS: HEPARIN - 25,000 UNIT in SODIUM CHLORIDE 495 ML IV SCH (09:08)
[2019-01-14] MEDS: METOPROLOL TARTRATE 25 MG TABLET (FP) PO SCH ×2 (09:09→22:03)
[2019-01-14] MEDS: FUROSEMIDE 40 MG/4 ML INJECTABLE VIAL IVPUSH SCH (09:09)
[2019-01-14] MEDS: PANTOPRAZOLE SODIUM 40 MG VIAL IVPUSH SCH ×2 (09:09→22:03)
[2019-01-14] MEDS: POLYETHYLENE GLYCOL 3350 119 GM BTL PO SCH (09:11)
[2019-01-14] MEDS ORDERED: FUROSEMIDE 40 MG/4 ML INJECTABLE VIAL IVPUSH SCH (10:00)
--- NOTE | 2019-01-14 10:15 | PN ---
Progress Note, Physician History of Present Illness: PULMONARY FEELING BETTER ,ALERT,OOB-CHAIR,LESS DYSPNEIC ON NASAL CANNULA - Current Medication List Current Medications: Active Medications Amino Acids (Prosource No Carb Liquid Pkt) 30 ml PO BID@0800,1730 [facility] Last Admin: 01/14/19 09:08 Dose: 30 ml Atorvastatin Calcium (Lipitor -) 20 mg PO HS [facility] Last Admin: 01/13/19 21:48 Dose: 20 mg Furosemide (Lasix Injection -) 80 mg IVPUSH DAILY [facility] Last Admin: 01/14/19 09:09 Dose: 80 mg Heparin Sodium (Porcine) (Heparin -) 1,000 unit IVPUSH PRN PRN PRN Reason: Heparin Last Admin: 01/13/19 18:41 Dose: 1,000 unit Heparin Sodium (Porcine) (Heparin -) 5,000 unit IVPUSH PRN PRN PRN Reason: Heparin Last Admin: 01/12/19 09:27 Dose: 5,000 unit Heparin Sodium (Porcine) 25, (000 unit/ Sodium Chloride) 500 mls @ 16 mls/hr IV TITR [facility]; Protocol Last Admin: 01/14/19 09:08 Dose: 1,150 unit/hr, 23 mls/hr Lactulose (Cephulac (Oral Use)) 20 gm PO TID PRN PRN Reason: CONSTIPATION Metoprolol Tartrate (Lopressor -) 37.5 mg PO BID [facility] Last Admin: 01/14/19 09:09 Dose: 37.5 mg Pantoprazole Sodium (Protonix Iv) 40 mg IVPUSH BID [facility] Last Admin: 01/14/19 09:09 Dose: 40 mg Polyethylene Glycol (Miralax (For Daily Use) -) 17 gm PO DAILY [facility] Last Admin: 01/14/19 09:11 Dose: 17 gm - Objective Vital Signs: Vital Signs Temperature 98 F 01/14/19 09:57 Pulse Rate 107 H 01/14/19 09:57 Respiratory Rate 22 H 01/14/19 09:57 Blood Pressure 107/52 L 01/14/19 09:57 O2 Sat by Pulse Oximetry (%) 94 L 01/14/19 09:00 Constitutional: Yes: Calm, Thin Eyes: Yes: WNL HENT: Yes: WNL Neck: Yes: WNL Cardiovascular: Yes: Pulse Irregular, S1, S2 Respiratory: Yes: Rales (BILATERAL CRACKLES) Gastrointestinal: Yes: Normal Bowel Sounds, Soft Extremities: Yes: WNL Edema: No Labs: CBC, BMP 01/14/19 06:30 01/14/19 06:30 INR, PTT INR 0.99 (0.83-1.09) 01/11/19 02:25 Problem List - Problems (1) Acute on chronic diastolic CHF (congestive heart failure) Code(s): I50.33 - ACUTE ON CHRONIC DIASTOLIC (CONGESTIVE) HEART FAILURE (2) APC (atrial premature contractions) Code(s): I49.1 - ATRIAL PREMATURE DEPOLARIZATION (3) Chronic interstitial lung disease Code(s): J84.9 - INTERSTITIAL PULMONARY DISEASE, UNSPECIFIED (4) Scleroderma Code(s): M34.9 - SYSTEMIC SCLEROSIS, UNSPECIFIED (5) Atrial fibrillation Code(s): I48.91 - UNSPECIFIED ATRIAL FIBRILLATION Qualifiers: Atrial fibrillation type: chronic Qualified Code(s): I48.2 - Chronic atrial fibrillation (6) HLD (hyperlipidemia) Code(s): E78.5 - HYPERLIPIDEMIA, UNSPECIFIED (7) HTN (hypertension) Code(s): I10 - ESSENTIAL (PRIMARY) HYPERTENSION Assessment/Plan ASSESSMENT AND PLAN: Altered Mental Status likely from benzodiazepine improved Acute on Chronic Diastolic Heart Failure IMPROVING +Troponins likely Demand Ischemia Scleroderma HTN Hyperlipidemia Atrial Fibrillation - lasix - monitor urine output, creatinine - rate control as per cardiology - O2 to keep Spo2 >90% - aspiration precautions - monitor H/H - inhaled bronchodilators - DVT prophylaxis - ROMIE GARDNER
--- NOTE | 2019-01-14 11:27 | PN ---
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 She notes her nurse has noticed her stool has been black for the past week, which she believes is related to taking iron daily. Today, patient notes she began feeling lightheaded , "like she was going to pass out," upon getting up and trying to go to the bathroom 2.5 hours ago (she ambulates with a walker at baseline). She reports immediately sitting down as she thought she was going to fall and her symptoms self-resolved after 15 minutes. As per patients daughter, she notes the patient has had symptoms similar to this before when she has had an UTI. Patient endorses mild chills, diaphoresis, and generalized weakness while in the ED. She is currently on a tapered dose of Prednisone for her Raynaud's but denies currently being on antibiotics for last UTI. Pt denies any dysarthria, headache, neck pain, diplopia, numbness/tingling/weakness, cp, back pain. The patient denies shortness of breath, and headache. Denies fever, nausea, vomit, diarrhea and constipation. Denies dysuria, frequency, urgency and hematuria. Allergies: Aspirin, cephalexin, ciprofloxacin, penicillins, quinolones Past surgical history: appendectomy, abdominal surgery, orthopedic surgery Social history: No reported PCP: Dr. Enmanuel Girard Hospital course ; 83yo female with h/o Scleroderma on chronic prednisone, HTN, hyperlipidemia, hyponatremia who was admitted for near syncope. Treated for dehydration with IVF. Was to be discharged last night, had a MRI done with ativan given. This AM, somnolent, lethargic but arousable and increasing shortness of breath. CXR today suggestive of pulmonary edema and bloodwork showing dropping H/H, transfered to the ICU for closer monitoring. - Current Medication List Current Medications: Active Medications Amino Acids (Prosource No Carb Liquid Pkt) 30 ml PO BID@0800,1730 [facility] Last Admin: 01/14/19 09:08 Dose: 30 ml Atorvastatin Calcium (Lipitor -) 20 mg PO HS [facility] Last Admin: 01/13/19 21:48 Dose: 20 mg Furosemide (Lasix Injection -) 80 mg IVPUSH DAILY [facility] Last Admin: 01/14/19 09:09 Dose: 80 mg Heparin Sodium (Porcine) (Heparin -) 1,000 unit IVPUSH PRN PRN PRN Reason: Heparin Last Admin: 01/13/19 18:41 Dose: 1,000 unit Heparin Sodium (Porcine) (Heparin -) 5,000 unit IVPUSH PRN PRN PRN Reason: Heparin Last Admin: 01/12/19 09:27 Dose: 5,000 unit Heparin Sodium (Porcine) 25, (000 unit/ Sodium Chloride) 500 mls @ 16 mls/hr IV TITR [facility]; Protocol Last Admin: 01/14/19 09:08 Dose: 1,150 unit/hr, 23 mls/hr Lactulose (Cephulac (Oral Use)) 20 gm PO TID PRN PRN Reason: CONSTIPATION Metoprolol Tartrate (Lopressor -) 37.5 mg PO BID [facility] Last Admin: 01/14/19 09:09 Dose: 37.5 mg Pantoprazole Sodium (Protonix Iv) 40 mg IVPUSH BID [facility] Last Admin: 01/14/19 09:09 Dose: 40 mg Polyethylene Glycol (Miralax (For Daily Use) -) 17 gm PO DAILY [facility] Last Admin: 01/14/19 09:11 Dose: 17 gm - Objective Vital Signs: Vital Signs Temperature 98 F 01/14/19 09:57 Pulse Rate 107 H 01/14/19 09:57 Respiratory Rate 22 H 01/14/19 09:57 Blood Pressure 107/52 L 01/14/19 09:57 O2 Sat by Pulse Oximetry (%) 94 L 01/14/19 09:00 Eyes: Yes: WNL, Conjunctiva Clear, EOM Intact HENT: Yes: WNL, Atraumatic, Normocephalic Neck: Yes: WNL, Supple, Trachea Midline Cardiovascular: Yes: Pulse Irregular, S1, S2 Respiratory: Yes: Regular, Diminished Gastrointestinal: Yes: WNL, Normal Bowel Sounds Genitourinary: Yes: WNL Musculoskeletal: Yes: WNL Extremities: Yes: WNL Edema: No Integumentary: Yes: WNL Neurological: Yes: WNL, Alert, Oriented ...Motor Strength: WNL Psychiatric: Yes: WNL Labs: CBC, BMP 01/14/19 06:30 01/14/19 06:30 INR, PTT INR 0.99 (0.83-1.09) 01/11/19 02:25 Assessment/Plan - Problems (1) Anemia Assessment/Plan: Hb relaively stable today at 8.7. On IV heparin; may consider change to PO agent (DOAC). Code(s): D64.9 - ANEMIA, UNSPECIFIED (2) Finger lesion Assessment/Plan: 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 (Any potential therapy should take into consideration pt's scleroderma). Code(s): L98.9 - DISORDER OF THE SKIN AND SUBCUTANEOUS TISSUE, UNSPECIFIED (3) GI bleed Code(s): K92.2 - GASTROINTESTINAL HEMORRHAGE, UNSPECIFIED (4) Lightheadedness Assessment/Plan: orthostatic VS maintain hydration. F/u electrolytes. Code(s): R42 - DIZZINESS AND GIDDINESS (5) Failure to thrive Code(s): [id number] - (6) HLD (hyperlipidemia) Code(s): E78.5 - HYPERLIPIDEMIA, UNSPECIFIED (7) HTN (hypertension) Assessment/Plan: On valsartan, metoprolol anf furosemide. Code(s): I10 - ESSENTIAL (PRIMARY) HYPERTENSION (8) Pleural effusion Code(s): J90 - PLEURAL EFFUSION, NOT ELSEWHERE CLASSIFIED (9) Scleroderma Assessment/Plan: CREST syndrome. Metoprolol was restarted (despite Raynaud's)(and diltizem discontinued) due to increase in TNI; also for HR control with AF. Code(s): M34.9 - SYSTEMIC SCLEROSIS, UNSPECIFIED (10) Weakness Code(s): R53.1 - WEAKNESS (11) Depression Assessment/Plan: Pt worries about her own health and that of her 's. Code(s): F32.9 - MAJOR DEPRESSIVE DISORDER, SINGLE EPISODE, UNSPECIFIED (12) Hypomagnesemia Assessment/Plan: Keep level 2-2.4. Keep K+ 4-4.5. Code(s): E83.42 - HYPOMAGNESEMIA (13) Chronic interstitial lung disease Assessment/Plan: f/u with materials technician. Code(s): J84.9 - INTERSTITIAL PULMONARY DISEASE, UNSPECIFIED (14) Atrial fibrillation Assessment/Plan: Continue metoprolol for HR control; (increased from 25 to 37.5 mg bid). Pt is at high risk for GI bleed; she has anemia that has required PRBCs. Nevertheless, IV heparin was started for AF and increased TNI; Hb stable. Code(s): I48.91 - UNSPECIFIED ATRIAL FIBRILLATION Qualifiers: Atrial fibrillation type: chronic Qualified Code(s): I48.2 - Chronic atrial fibrillation (15) Diastolic dysfunction Code(s): I51.89 - OTHER ILL-DEFINED HEART DISEASES (16) Elevated troponin Assessment/Plan: TNI decreasing from high of 3.6. No significant EKG changes. Likely demand ischemia; contributing factors include CHF, anemia, PSS, anxiety, pain, AF with RVR. However, vascular disease generally and myocardial fibrosis ( exacerbated by pulmonary disease) with increase in OR are increased with scleroderma, and portend poor prognosis. Placed on IV heparin; may consider change to DOAC. Problematic considering coronary angiogram (stent would require dual antiplatelet Rx, with pt at high risk for bleed; overall health would mitigate against CABG). Control HR; increase metoprolol (changed from diltiazem due to new findings of palpitations and elevated TNi; pt did not feel improvement in hands while on diltizem). Code(s): R74.8 - ABNORMAL LEVELS OF OTHER SERUM ENZYMES (17) Raynaud's phenomenon Code(s): I73.00 - RAYNAUD'S SYNDROME WITHOUT GANGRENE
[2019-01-14] MEDS ORDERED: POTASSIUM CHLORIDE TABS 20 MEQ TABLET.ER (FP) PO ONE (11:57)
--- NOTE | 2019-01-14 12:45 | PN ---
Physical Exam: SUBJECTIVE: Patient seen and examined Patient resting in bed nad. afebrile hemodynamically stable, AF rate under 110 bpm on tele. feels better, now on 4l ns. was unable to tolerate pt due to weakness OBJECTIVE: Vital Signs Period Temp Pulse Resp BP Sys/Stewart Pulse Ox Last 24 Hr 97.6 F-98.4 F 83-107 20-22 107-161/52-90 94-95 GENERAL: The patient is awake, alert, and fully oriented, in no acute distress. HEAD: Normal with no signs of trauma. EYES: PERRL, extraocular movements intact, sclera anicteric, conjunctiva clear. No ptosis. ENT: moist mucous membranes. NECK: supple. LUNGS: bibasilar ronchi HEART: irregular, s1s2 ABDOMEN: Soft, nontender, nondistended, normoactive bowel sounds EXTREMITIES: 2+ pulses, warm, well-perfused, no edema. NEUROLOGICAL: Cranial nerves II through XII grossly intact. Normal speech, gait not observed. PSYCH: Normal mood, normal affect. SKIN: Warm, dry Laboratory Results - last 24 hr 01/13/19 01/14/19 01/14/19 17:30 06:30 06:30 WBC 11.1 H RBC 2.79 L Hgb 8.3 L Hct 24.7 L MCV 88.6 MCH 29.8 MCHC 33.6 RDW 18.0 H Plt Count 561 H MPV 8.0 PTT (Actin FS) 40.2 H 59.1 H Sodium Potassium Chloride Carbon Dioxide Anion Gap BUN Creatinine Est GFR (CKD-EPI)AfAm Est GFR (CKD-EPI)NonAf Random Glucose Calcium Phosphorus Magnesium 01/14/19 06:30 WBC RBC Hgb Hct MCV MCH MCHC RDW Plt Count MPV PTT (Actin FS) Sodium 141 Potassium 3.2 L Chloride 103 Carbon Dioxide 30 Anion Gap 8 BUN 31.2 H Creatinine 0.9 Est GFR (CKD-EPI)AfAm 68.05 Est GFR (CKD-EPI)NonAf 58.71 Random Glucose 104 Calcium 8.3 L Phosphorus 4.3 Magnesium 2.0 Active Medications Generic Name Dose Route Start Last Admin Trade Name Freq PRN Reason Stop Dose Admin Amino Acids 30 ml 01/05/19 17:30 01/14/19 09:08 Prosource No Carb Liquid Pkt PO 30 ml BID@0800,1730 ALANNA Administration Atorvastatin Calcium 20 mg 01/05/19 22:00 01/13/19 21:48 Lipitor - PO 20 mg HS ALANNA Administration Furosemide 80 mg 01/14/19 10:00 01/14/19 09:09 Lasix Injection - IVPUSH 80 mg DAILY ALANAN Administration Heparin Sodium (Porcine) 1,000 unit 01/11/19 01:56 01/13/19 18:41 Heparin - IVPUSH 1,000 unit PRN PRN Administration Heparin Heparin Sodium (Porcine) 5,000 unit 01/11/19 01:56 01/12/19 09:27 Heparin - IVPUSH 5,000 unit PRN PRN Administration Heparin Heparin Sodium (Porcine) 25, 500 mls @ 16 mls/hr 01/11/19 02:30 01/14/19 09: 08 000 unit/ Sodium Chloride IV 1,150 unit/hr TITR ALANNA 23 mls/hr Administration Protocol 800 UNIT/HR Lactulose 20 gm 01/08/19 17:17 Cephulac (Oral Use) PO TID PRN CONSTIPATION Metoprolol Tartrate 37.5 mg 01/13/19 09:18 01/14/19 09:09 Lopressor - PO 37.5 mg BID ALANNA Administration Pantoprazole Sodium 40 mg 01/05/19 22:00 01/14/19 09:09 Protonix Iv IVPUSH 40 mg BID ALANNA Administration Polyethylene Glycol 17 gm 01/07/19 13:00 01/14/19 09:11 Miralax (For Daily Use) - PO 17 gm DAILY ALANNA Administration ASSESSMENT/PLAN: This is an 83 yo F with PMH of hyponatremia with syncope, htn, hld, Raynaud's, Scleroderma, bibems due to near syncope. Patient was sitting on the toilet earlier today, not straining, not actively passing urine or stool when she suddenly felt very dizzy, denies associated flushing, palpitations, cp, nausea. New AF RVR Acute HFPEF exacerbation Troponemia possible nstemi Acute hypoxic respiratory failure GIB w acute blood loss anemia Severe distal esophagitis near syncope R thumb lesion normocytic anemia Raynauds Scleroderma severe protein calorie malnutrition urinary retention -rate better controlled on lopressor to 37.5 bid -respiratory status improvd on lasix to 80 mg d iv tolerating 4l NC -BiPAP HS -trops peaked. demand vs nstemi. not a cath candidate due to recent gib -af was probably present in the past paroxysmally since the L atrium severely dilated on TTE -cardio consult appreciated -s/p EGD no occult bleeding seen -hemodynamically stable. hgb 8.3 -continue PPI bid x 2 w total -Fe studies reviewed; venofer -GI note apprecited, AC is permissible. patient declines ac -patient declines colonoscopy -near syncope likely vasovagal or orthostatic due to dehydration; af and anemia may be contributing. -R thumb calcinosis -wilson inserted, f/u repeat urine culture negative -plan rehab Problem List - Problems (1) Finger lesion Code(s): L98.9 - DISORDER OF THE SKIN AND SUBCUTANEOUS TISSUE, UNSPECIFIED (2) Near syncope Code(s): R55 - SYNCOPE AND COLLAPSE (3) Raynauds disease Code(s): I73.00 - RAYNAUD'S SYNDROME WITHOUT GANGRENE (4) Scleroderma Code(s): M34.9 - SYSTEMIC SCLEROSIS, UNSPECIFIED (5) HLD (hyperlipidemia) Code(s): E78.5 - HYPERLIPIDEMIA, UNSPECIFIED (6) HTN (hypertension) Code(s): I10 - ESSENTIAL (PRIMARY) HYPERTENSION (7) UTI (urinary tract infection) Code(s): N39.0 - URINARY TRACT INFECTION, SITE NOT SPECIFIED (8) Severe protein-calorie malnutrition Code(s): E43 - UNSPECIFIED SEVERE PROTEIN-CALORIE MALNUTRITION Visit type - Emergency Visit Emergency Visit: Yes ED Registration Date: 12/30/18 Care time: The patient presented to the Emergency Department on the above date and was hospitalized for further evaluation of their emergent condition. - New Patient This patient is new to me today: No - Critical Care Critical Care patient: No - Discharge Referral Referred to [facility] Med P.C.: No
--- NOTE | 2019-01-14 13:01 | PN ---
Teaching Attending Note Name of Resident: Kamila Greenberg ATTENDING PHYSICIAN STATEMENT I saw and evaluated the patient. I reviewed the resident's note and discussed the case with the resident. I agree with the resident's findings and plan as documented. SUBJECTIVE: Ms Dillon says she is feeling better today. Shortness of breath much improved. No cp or n/v. OBJECTIVE: Last Vital Signs Temp Pulse Resp BP Pulse Ox 36.6 C 107 H 22 H 107/52 L 94 L 01/14/19 09:57 01/14/19 09:57 01/14/19 09:57 01/14/19 09:57 01/14/19 09:00 Gen: nad Pulm: hernandez much improved, good air movement. On NC CV: irreg irreg, improved control. No m/r/g Abd: +bs, s/nt/nd Ext: no c/c/e CBC, BMP 01/14/19 06:30 01/14/19 06:30 ASSESSMENT AND PLAN: (1) NSTEMI -continue heparin gtt -transition to AC per cardiology -no chest pain -continue current management Code(s): (2) Finger lesion -MRI finger negative Code(s): L98.9 - DISORDER OF THE SKIN AND SUBCUTANEOUS TISSUE, UNSPECIFIED (3) UTI (urinary tract infection) -urine culture negative Code(s): N39.0 - URINARY TRACT INFECTION, SITE NOT SPECIFIED (4) Atrial fibrillation -better controlled -may need further increase in metoprolol -continue heparin gtt Code(s): I48.91 - UNSPECIFIED ATRIAL FIBRILLATION Qualifiers: Atrial fibrillation type: chronic Qualified Code(s): I48.2 - Chronic atrial fibrillation (5) HLD (hyperlipidemia) -continue statin Code(s): E78.5 - HYPERLIPIDEMIA, UNSPECIFIED (6) HTN (hypertension) -continue metoprolol Code(s): I10 - ESSENTIAL (PRIMARY) HYPERTENSION (7) Scleroderma -finished prednisone taper -suspect contributing to respiratory failure Code(s): M34.9 - SYSTEMIC SCLEROSIS, UNSPECIFIED (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
[2019-01-14] MEDS ORDERED: IRON SUCROSE INJECTION 100 MG in SODIUM CHLORIDE 95 ML IVPB ONE (17:25)
[2019-01-14] MEDS ORDERED: PT OWN MED DRAWER 7, Y5N ONE (17:50)
[2019-01-14] MEDS: ATORVASTATIN CA 20 MG TABLET (FP) PO SCH (22:03)
[2019-01-15 08:18] LABS: HEMATOCRIT 27.7 % (32.4-45.2); HEMOGLOBIN 8.9 GM/dL (10.7-15.3); MCH 28.8 pg (25.7-33.7); MCHC 32.1 g/dl (32.0-36.0); MEAN CELL VOLUME 89.8 fl (80-96); MEAN PLT VOLUME 8.6 fl (7.5-11.1); PLATELET COUNT 598 K/MM3 (134-434); RBC 3.08 M/mm3 (3.60-5.2); RDW 18.4 % (11.6-15.6); WHITE BLOOD COUNT 11.3 K/mm3 (4.0-10.0)
[2019-01-15] MEDS: AMINO ACIDS/PROTEIN HYDROLYS 30 ML LIQUID.PKT PO SCH ×2 (08:25→18:08)
[2019-01-15 08:27] LABS: BLOOD UREA NITROGEN 32.1 mg/dL (7-18); CALCIUM 8.6 mg/dL (8.5-10.1); MAGNESIUM 2.1 mg/dL (1.8-2.4); PHOSPHOROUS 3.6 mg/dL (2.5-4.9); POTASSIUM 4.2 mmol/L (3.5-5.1)
--- NOTE | 2019-01-15 08:31 | PN ---
Physical Exam: SUBJECTIVE: Patient seen and examined Patient resting in bed nad. afebrile hemodynamically stable, AF poorly controlled 160's tele. feels better, on 4l ns. was unable to tolerate pt due to weakness OBJECTIVE: Vital Signs Period Temp Pulse Resp BP Sys/Stewart Pulse Ox Last 24 Hr 97.4 F-98.4 F 93-117 20-22 107-125/51-78 94-94 GENERAL: The patient is awake, alert, and fully oriented, in no acute distress. HEAD: Normal with no signs of trauma. EYES: PERRL, extraocular movements intact, sclera anicteric, conjunctiva clear. No ptosis. ENT: moist mucous membranes. NECK: supple. LUNGS: bibasilar ronchi HEART: irregular, s1s2, tachy ABDOMEN: Soft, nontender, nondistended, normoactive bowel sounds EXTREMITIES: 2+ pulses, warm, well-perfused, no edema. NEUROLOGICAL: Cranial nerves II through XII grossly intact. Normal speech, gait not observed. RLE + cord and tenderness in calf PSYCH: Normal mood, normal affect. SKIN: Warm, dry Laboratory Results - last 24 hr 01/14/19 01/15/19 06:30 07:10 WBC 11.1 H RBC 2.79 L Hgb 8.3 L Hct 24.7 L MCV 88.6 MCH 29.8 MCHC 33.6 RDW 18.0 H Plt Count 561 H MPV 8.0 Sodium 141 Potassium 4.2 Chloride 106 Carbon Dioxide 29 Anion Gap 7 L BUN 32.1 H Creatinine 1.0 Est GFR (CKD-EPI)AfAm 59.91 Est GFR (CKD-EPI)NonAf 51.69 Random Glucose 110 H Calcium 8.6 Phosphorus 3.6 Magnesium 2.1 Active Medications Generic Name Dose Route Start Last Admin Trade Name Freq PRN Reason Stop Dose Admin Amino Acids 30 ml 01/05/19 17:30 01/15/19 08:25 Prosource No Carb Liquid Pkt PO 30 ml BID@0800,1730 ALANNA Administration Atorvastatin Calcium 20 mg 01/05/19 22:00 01/14/19 22:03 Lipitor - PO 20 mg HS ALANNA Administration Furosemide 80 mg 01/14/19 10:00 01/14/19 09:09 Lasix Injection - IVPUSH 80 mg DAILY ALANNA Administration Heparin Sodium (Porcine) 1,000 unit 01/11/19 01:56 01/13/19 18:41 Heparin - IVPUSH 1,000 unit PRN PRN Administration Heparin Heparin Sodium (Porcine) 5,000 unit 01/11/19 01:56 01/12/19 09:27 Heparin - IVPUSH 5,000 unit PRN PRN Administration Heparin Heparin Sodium (Porcine) 25, 500 mls @ 16 mls/hr 01/11/19 02:30 01/14/19 09: 08 000 unit/ Sodium Chloride IV 1,150 unit/hr TITR ALANNA 23 mls/hr Administration Protocol 800 UNIT/HR Lactulose 20 gm 01/08/19 17:17 Cephulac (Oral Use) PO TID PRN CONSTIPATION Metoprolol Tartrate 37.5 mg 01/13/19 09:18 01/14/19 22:03 Lopressor - PO 37.5 mg BID ALANNA Administration Pantoprazole Sodium 40 mg 01/05/19 22:00 01/14/19 22:03 Protonix Iv IVPUSH 40 mg BID ALANNA Administration Polyethylene Glycol 17 gm 01/07/19 13:00 01/14/19 09:11 Miralax (For Daily Use) - PO 17 gm DAILY ALANNA Administration ASSESSMENT/PLAN: This is an 83 yo F with PMH of hyponatremia with syncope, htn, hld, Raynaud's, Scleroderma, bibems due to near syncope. Patient was sitting on the toilet earlier today, not straining, not actively passing urine or stool when she suddenly felt very dizzy, denies associated flushing, palpitations, cp, nausea. DVT of RLE New AF RVR Acute HFPEF exacerbation Troponemia possible nstemi Acute hypoxic respiratory failure GIB w acute blood loss anemia Severe distal esophagitis near syncope urinary retention R thumb calcinosis normocytic anemia Raynauds Scleroderma severe protein calorie malnutrition -Duplex + RLE DVT of PT and lesser saphenous vein. patient on hep gtt but was w/ o ac for a while due to gib concern -rate poorly controlled with bb, increase lopressor to 50 bid. consider rhythm control -respiratory status improvd on lasix to 80 mg d iv tolerating 4l NC -BiPAP HS -trops peaked. demand vs nstemi. not a cath candidate due to recent gib -af was probably present in the past paroxysmally since the L atrium severely dilated on TTE -cardio consult appreciated -s/p EGD no occult bleeding seen -hemodynamically stable. -continue PPI bid x 2 w total -Fe studies reviewed; venofer -GI consult apprecited, AC is permissible -patient declines colonoscopy -near syncope likely vasovagal or orthostatic due to dehydration; af and anemia may be contributing. -wilson inserted, f/u repeat urine culture negative -plan rehab Problem List - Problems (1) Finger lesion Code(s): L98.9 - DISORDER OF THE SKIN AND SUBCUTANEOUS TISSUE, UNSPECIFIED (2) Near syncope Code(s): R55 - SYNCOPE AND COLLAPSE (3) Raynauds disease Code(s): I73.00 - RAYNAUD'S SYNDROME WITHOUT GANGRENE (4) Scleroderma Code(s): M34.9 - SYSTEMIC SCLEROSIS, UNSPECIFIED (5) HLD (hyperlipidemia) Code(s): E78.5 - HYPERLIPIDEMIA, UNSPECIFIED (6) HTN (hypertension) Code(s): I10 - ESSENTIAL (PRIMARY) HYPERTENSION (7) UTI (urinary tract infection) Code(s): N39.0 - URINARY TRACT INFECTION, SITE NOT SPECIFIED (8) Severe protein-calorie malnutrition Code(s): E43 - UNSPECIFIED SEVERE PROTEIN-CALORIE MALNUTRITION Visit type - Emergency Visit Emergency Visit: Yes ED Registration Date: 12/30/18 Care time: The patient presented to the Emergency Department on the above date and was hospitalized for further evaluation of their emergent condition. - New Patient This patient is new to me today: No - Critical Care Critical Care patient: No - Discharge Referral Referred to [facility] Med P.C.: No
[2019-01-15] MEDS: HEPARIN - 25,000 UNIT in SODIUM CHLORIDE 495 ML IV SCH (08:59)
[2019-01-15] MEDS: PANTOPRAZOLE SODIUM 40 MG VIAL IVPUSH SCH ×2 (08:59→22:52)
[2019-01-15] MEDS: FUROSEMIDE 40 MG/4 ML INJECTABLE VIAL IVPUSH SCH (08:59)
[2019-01-15] MEDS: METOPROLOL TARTRATE 25 MG TABLET (FP) PO SCH ×2 (08:59→22:52)
[2019-01-15] MEDS: POLYETHYLENE GLYCOL 3350 119 GM BTL PO SCH (09:00)
--- NOTE | 2019-01-15 12:39 | PN ---
Progress Note (short form) - Note Progress Note: PULMONARY Denies shortness of breath, chest pain or palpitations. Heart rates variable. Vital Signs Period Temp Pulse Resp BP Sys/Stewart Pulse Ox Last 24 Hr 97.4 F-98.4 F 93-122 18-20 111-129/51-78 94-94 Gen: NAD in chair Heart: irregular, tachycardic Lung: decreased breath sounds at the bases Abd: soft, nontender Ext: no edema CBC, BMP 01/15/19 07:10 01/15/19 07:10 Active Medications Amino Acids (Prosource No Carb Liquid Pkt) 30 ml PO BID@0800,1730 [facility] Last Admin: 01/15/19 08:25 Dose: 30 ml Atorvastatin Calcium (Lipitor -) 20 mg PO HS [facility] Last Admin: 01/14/19 22:03 Dose: 20 mg Furosemide (Lasix Injection -) 80 mg IVPUSH DAILY [facility] Last Admin: 01/15/19 08:59 Dose: 80 mg Heparin Sodium (Porcine) (Heparin -) 1,000 unit IVPUSH PRN PRN PRN Reason: Heparin Last Admin: 01/13/19 18:41 Dose: 1,000 unit Heparin Sodium (Porcine) (Heparin -) 5,000 unit IVPUSH PRN PRN PRN Reason: Heparin Last Admin: 01/12/19 09:27 Dose: 5,000 unit Heparin Sodium (Porcine) 25, (000 unit/ Sodium Chloride) 500 mls @ 16 mls/hr IV TITR ALANNA; Protocol Last Admin: 01/15/19 08:59 Dose: 1,150 unit/hr, 23 mls/hr Lactulose (Cephulac (Oral Use)) 20 gm PO TID PRN PRN Reason: CONSTIPATION Metoprolol Tartrate (Lopressor -) 37.5 mg PO BID [facility] Last Admin: 01/15/19 08:59 Dose: 37.5 mg Pantoprazole Sodium (Protonix Iv) 40 mg IVPUSH BID [facility] Last Admin: 01/15/19 08:59 Dose: 40 mg Polyethylene Glycol (Miralax (For Daily Use) -) 17 gm PO DAILY [facility] Last Admin: 01/15/19 09:00 Dose: Not Given A/P Acute on Chronic Diastolic Heart Failure Atrial Fibrillation with RVR +Troponins likely Demand Ischemia Scleroderma HTN Hyperlipidemia R Popliteal DVT - continue lasix - monitor urine output, creatinine - rate control as per cardiology - continue anticoagulation - O2 to keep Spo2 >90% - aspiration precautions - monitor H/H - inhaled bronchodilators
--- NOTE | 2019-01-15 14:23 | PN ---
Progress Note, Physician Chief Complaint: Pt A&O&3; still with pain in calf; now being treated for DVT. 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 She notes her nurse has noticed her stool has been black for the past week, which she believes is related to taking iron daily. Today, patient notes she began feeling lightheaded, "like she was going to pass out," upon getting up and trying to go to the bathroom 2.5 hours ago (she ambulates with a walker at baseline). She reports immediately sitting down as she thought she was going to fall and her symptoms self-resolved after 15 minutes. As per patients daughter , she notes the patient has had symptoms similar to this before when she has had an UTI. Patient endorses mild chills, diaphoresis, and generalized weakness while in the ED. She is currently on a tapered dose of Prednisone for her Raynaud's but denies currently being on antibiotics for last UTI. Pt denies any dysarthria, headache, neck pain, diplopia, numbness/tingling/weakness, cp, back pain. The patient denies shortness of breath, and headache. Denies fever, nausea, vomit, diarrhea and constipation. Denies dysuria, frequency, urgency and hematuria. Allergies: Aspirin, cephalexin, ciprofloxacin, penicillins, quinolones Past surgical history: appendectomy, abdominal surgery, orthopedic surgery Social history: No reported PCP: Dr. Enmanuel Girard - Current Medication List Current Medications: Active Medications Amino Acids (Prosource No Carb Liquid Pkt) 30 ml PO BID@0800,1730 [facility] Last Admin: 01/15/19 08:25 Dose: 30 ml Atorvastatin Calcium (Lipitor -) 20 mg PO HS [facility] Last Admin: 01/14/19 22:03 Dose: 20 mg Furosemide (Lasix Injection -) 80 mg IVPUSH DAILY [facility] Last Admin: 01/15/19 08:59 Dose: 80 mg Heparin Sodium (Porcine) (Heparin -) 1,000 unit IVPUSH PRN PRN PRN Reason: Heparin Last Admin: 01/13/19 18:41 Dose: 1,000 unit Heparin Sodium (Porcine) (Heparin -) 5,000 unit IVPUSH PRN PRN PRN Reason: Heparin Last Admin: 01/12/19 09:27 Dose: 5,000 unit Heparin Sodium (Porcine) 25, (000 unit/ Sodium Chloride) 500 mls @ 16 mls/hr IV TITR ALANNA; Protocol Last Admin: 01/15/19 08:59 Dose: 1,150 unit/hr, 23 mls/hr Lactulose (Cephulac (Oral Use)) 20 gm PO TID PRN PRN Reason: CONSTIPATION Metoprolol Tartrate (Lopressor -) 50 mg PO BID [facility] Pantoprazole Sodium (Protonix Iv) 40 mg IVPUSH BID [facility] Last Admin: 01/15/19 08:59 Dose: 40 mg Polyethylene Glycol (Miralax (For Daily Use) -) 17 gm PO DAILY [facility] Last Admin: 01/15/19 09:00 Dose: Not Given - Objective Vital Signs: Vital Signs Temperature 98.4 F 01/15/19 10:00 Pulse Rate 122 H 01/15/19 10:00 Respiratory Rate 18 01/15/19 10:00 Blood Pressure 129/77 01/15/19 10:00 O2 Sat by Pulse Oximetry (%) 94 L 01/15/19 09:00 Constitutional: Yes: Anxious, Thin Eyes: Yes: WNL HENT: Yes: WNL Neck: Yes: Decreased ROM Cardiovascular: Yes: Tachycardia, Pulse Irregular, S1 (varies in intensity), S2 Respiratory: Yes: Diminished, Tachypnea Gastrointestinal: Yes: Soft ...Rectal Exam: Yes: Deferred Genitourinary: No: Anuria Breast(s): Yes: WNL Musculoskeletal: Yes: Muscle Weakness Extremities: Yes: Cool Edema: No Peripheral Pulses WNL: No Peripheral Pulses: Left Doralis Pedis: 1+, Right Dorsalis Pedis: 1+ Integumentary: Yes: Venous Stasis Changes Neurological: Yes: Alert, Oriented, Weakness Psychiatric: Yes: Other (anxiety/depression) Labs: CBC, BMP 01/15/19 07:10 01/15/19 07:10 INR, PTT INR 0.99 (0.83-1.09) 01/11/19 02:25 Abnormal Lab Results 01/16/19 01/16/19 01/16/19 06:28 06:28 17:30 WBC 12.0 H RBC 2.86 L Hgb 8.4 L Hct 25.7 L RDW 18.4 H Plt Count 605 H PTT (Actin FS) 116.0 H BUN 33.4 H - ....Imaging Chest X-ray: Image Reviewed EKG: Image Reviewed Problem List - Problems (1) Anemia Assessment/Plan: Hb relaively stable (>8.0). On IV heparin until warfarin-->INR 2-3. Code(s): D64.9 - ANEMIA, UNSPECIFIED (2) Finger lesion Assessment/Plan: 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 (Any potential therapy should take into consideration pt's scleroderma). Code(s): L98.9 - DISORDER OF THE SKIN AND SUBCUTANEOUS TISSUE, UNSPECIFIED (3) GI bleed Code(s): K92.2 - GASTROINTESTINAL HEMORRHAGE, UNSPECIFIED (4) Lightheadedness Assessment/Plan: orthostatic VS maintain hydration. F/u electrolytes. Code(s): R42 - DIZZINESS AND GIDDINESS (5) Failure to thrive Code(s): VSQ4003 - (6) HLD (hyperlipidemia) Assessment/Plan: on atorvastatin. Code(s): E78.5 - HYPERLIPIDEMIA, UNSPECIFIED (7) HTN (hypertension) Assessment/Plan: On valsartan, metoprolol anf furosemide. Code(s): I10 - ESSENTIAL (PRIMARY) HYPERTENSION (8) Pleural effusion Code(s): J90 - PLEURAL EFFUSION, NOT ELSEWHERE CLASSIFIED (9) Scleroderma Assessment/Plan: CREST syndrome. Metoprolol was restarted (despite Raynaud's), and diltizem discontinued due to increase in TNI; also for HR control with AF. Code(s): M34.9 - SYSTEMIC SCLEROSIS, UNSPECIFIED (10) Weakness Code(s): R53.1 - WEAKNESS (11) Depression Assessment/Plan: Pt worries about her own health and that of her 's. Code(s): F32.9 - MAJOR DEPRESSIVE DISORDER, SINGLE EPISODE, UNSPECIFIED (12) Hypomagnesemia Assessment/Plan: Keep level 2-2.4. Keep K+ 4-4.5. Code(s): E83.42 - HYPOMAGNESEMIA (13) Chronic interstitial lung disease Assessment/Plan: f/u with sql database administrator. Code(s): J84.9 - INTERSTITIAL PULMONARY DISEASE, UNSPECIFIED (14) Atrial fibrillation Assessment/Plan: Continue metoprolol for HR control; (increased to 50 mg bid). Pt is at high risk for GI bleed; she has anemia that has required PRBCs. Nevertheless, IV heparin was started for AF and increased TNI, and will be continued until INR 2-3; Hb stable. Code(s): I48.91 - UNSPECIFIED ATRIAL FIBRILLATION Qualifiers: Atrial fibrillation type: chronic Qualified Code(s): I48.2 - Chronic atrial fibrillation (15) Diastolic dysfunction Code(s): I51.89 - OTHER ILL-DEFINED HEART DISEASES (16) Elevated troponin Assessment/Plan: TNI decreasing from high of 3.6. No significant EKG changes. Likely demand ischemia; contributing factors include CHF, anemia, PSS, anxiety, pain, AF with RVR. However, vascular disease generally and myocardial fibrosis ( exacerbated by pulmonary disease) with increase in [place] are increased with scleroderma, and portend poor prognosis. Placed on IV heparin, and now warfarin. Problematic considering coronary angiogram (stent would require dual antiplatelet Rx, with pt at high risk for bleed; overall health would mitigate against CABG). Control HR; increase metoprolol (changed from diltiazem due to new findings of palpitations and elevated TNi; pt did not feel improvement in her hands while on diltizem). Code(s): R74.8 - ABNORMAL LEVELS OF OTHER SERUM ENZYMES (17) Raynaud's phenomenon Code(s): I73.00 - RAYNAUD'S SYNDROME WITHOUT GANGRENE
--- NOTE | 2019-01-15 15:10 | PN ---
Teaching Attending Note Name of Resident: Kamila Greenberg ATTENDING PHYSICIAN STATEMENT I saw and evaluated the patient. I reviewed the resident's note and discussed the case with the resident. I agree with the resident's findings and plan as documented. SUBJECTIVE: complains of weakness and shortness of breath. No cp or n/v. OBJECTIVE: Last Vital Signs Temp Pulse Resp BP Pulse Ox 36.9 C 84 18 96/74 94 L 01/15/19 10:00 01/15/19 14:24 01/15/19 14:24 01/15/19 14:24 01/15/19 09:00 Gen: nad Pulm: ronchi bilaterally, unchanged from yesterday CV: irreg irreg, tachycardic, no m/r/g Abd: +bs, s/nt/nd Ext: no c/c/e CBC, BMP 01/15/19 07:10 01/15/19 07:10 ASSESSMENT AND PLAN: (1) NSTEMI -continue heparin gtt -transition to AC per cardiology -no chest pain -continue current management Code(s): (2) Finger lesion -MRI finger negative Code(s): L98.9 - DISORDER OF THE SKIN AND SUBCUTANEOUS TISSUE, UNSPECIFIED (3) UTI (urinary tract infection) -urine culture negative Code(s): N39.0 - URINARY TRACT INFECTION, SITE NOT SPECIFIED (4) Atrial fibrillation -metoprolol increased to 50mg bid for better control -continue telemetry monitoring -continue heparin gtt Code(s): I48.91 - UNSPECIFIED ATRIAL FIBRILLATION Qualifiers: Atrial fibrillation type: chronic Qualified Code(s): I48.2 - Chronic atrial fibrillation (5) HLD (hyperlipidemia) -continue statin Code(s): E78.5 - HYPERLIPIDEMIA, UNSPECIFIED (6) HTN (hypertension) -continue metoprolol Code(s): I10 - ESSENTIAL (PRIMARY) HYPERTENSION (7) Scleroderma -finished prednisone taper -suspect contributing to respiratory failure Code(s): M34.9 - SYSTEMIC SCLEROSIS, UNSPECIFIED (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
[2019-01-15] MEDS: ATORVASTATIN CA 20 MG TABLET (FP) PO SCH (22:52)
[2019-01-16 07:15] LABS: HEMATOCRIT 25.7 % (32.4-45.2); HEMOGLOBIN 8.4 GM/dL (10.7-15.3); MCH 29.5 pg (25.7-33.7); MCHC 32.8 g/dl (32.0-36.0); MEAN PLT VOLUME 8.4 fl (7.5-11.1); PLATELET COUNT 605 K/MM3 (134-434); RBC 2.86 M/mm3 (3.60-5.2); RDW 18.4 % (11.6-15.6)
[2019-01-16 07:34] LABS: BLOOD UREA NITROGEN 33.4 mg/dL (7-18); CALCIUM 8.9 mg/dL (8.5-10.1); MAGNESIUM 2.1 mg/dL (1.8-2.4); PHOSPHOROUS 4.3 mg/dL (2.5-4.9); POTASSIUM 3.8 mmol/L (3.5-5.1)
--- NOTE | 2019-01-16 08:39 | PN ---
Physical Exam: SUBJECTIVE: Patient seen and examined Patient resting in bed nad. afebrile hemodynamically stable, AF poorly controlled bursts of rate 160's on tele, however currently 80's bpm. feels better, on 4l ns. walked around the room with pt OBJECTIVE: Vital Signs Period Temp Pulse Resp BP Sys/Stewart Pulse Ox Last 24 Hr 97.3 F-98.4 F 84-122 18-20 94-141/55-83 94-94 GENERAL: The patient is awake, alert, and fully oriented, in no acute distress. HEAD: Normal with no signs of trauma. EYES: PERRL, extraocular movements intact, sclera anicteric, conjunctiva clear. No ptosis. ENT: moist mucous membranes. NECK: supple. LUNGS: bibasilar ronchi improved HEART: irregular, s1s2, regular rate ABDOMEN: Soft, nontender, nondistended, normoactive bowel sounds EXTREMITIES: 2+ pulses, warm, well-perfused, no edema. NEUROLOGICAL: Cranial nerves II through XII grossly intact. Normal speech, gait not observed. RLE + cord and tenderness in calf PSYCH: Normal mood, normal affect. SKIN: Warm, dry Laboratory Results - last 24 hr 01/15/19 01/16/19 01/16/19 07:10 06:28 06:28 WBC 11.3 H 12.0 H RBC 3.08 L 2.86 L Hgb 8.9 L 8.4 L Hct 27.7 L 25.7 L MCV 89.8 90.0 MCH 28.8 29.5 MCHC 32.1 32.8 RDW 18.4 H 18.4 H Plt Count 598 H 605 H MPV 8.6 8.4 PTT (Actin FS) 34.6 Sodium Potassium Chloride Carbon Dioxide Anion Gap BUN Creatinine Est GFR (CKD-EPI)AfAm Est GFR (CKD-EPI)NonAf Random Glucose Calcium Phosphorus Magnesium 01/16/19 06:28 WBC RBC Hgb Hct MCV MCH MCHC RDW Plt Count MPV PTT (Actin FS) Sodium 140 Potassium 3.8 Chloride 104 Carbon Dioxide 29 Anion Gap 8 BUN 33.4 H Creatinine 1.0 Est GFR (CKD-EPI)AfAm 59.91 Est GFR (CKD-EPI)NonAf 51.69 Random Glucose 101 Calcium 8.9 Phosphorus 4.3 Magnesium 2.1 Active Medications Generic Name Dose Route Start Last Admin Trade Name Freq PRN Reason Stop Dose Admin Amino Acids 30 ml 01/05/19 17:30 01/15/19 18:08 Prosource No Carb Liquid Pkt PO 30 ml BID@0800,1730 ALANNA Administration Atorvastatin Calcium 20 mg 01/05/19 22:00 01/15/19 22:52 Lipitor - PO 20 mg HS ALANNA Administration Furosemide 80 mg 01/14/19 10:00 01/15/19 08:59 Lasix Injection - IVPUSH 80 mg DAILY ALANNA Administration Heparin Sodium (Porcine) 1,000 unit 01/11/19 01:56 01/13/19 18:41 Heparin - IVPUSH 1,000 unit PRN PRN Administration Heparin Heparin Sodium (Porcine) 5,000 unit 01/11/19 01:56 01/12/19 09:27 Heparin - IVPUSH 5,000 unit PRN PRN Administration Heparin Heparin Sodium (Porcine) 25, 500 mls @ 16 mls/hr 01/11/19 02:30 01/15/19 08: 59 000 unit/ Sodium Chloride IV 1,150 unit/hr TITR ALANNA 23 mls/hr Administration Protocol 800 UNIT/HR Lactulose 20 gm 01/08/19 17:17 Cephulac (Oral Use) PO TID PRN CONSTIPATION Metoprolol Tartrate 50 mg 01/15/19 22:00 01/15/19 22:52 Lopressor - PO 50 mg BID ALANNA Administration Pantoprazole Sodium 40 mg 01/05/19 22:00 01/15/19 22:52 Protonix Iv IVPUSH 40 mg BID ALANNA Administration Polyethylene Glycol 17 gm 01/07/19 13:00 01/15/19 09:00 Miralax (For Daily Use) - PO Not Given DAILY [facility]AN[facility] ASSESSMENT/PLAN: This is an 83 yo F with PMH of hyponatremia with syncope, htn, hld, Raynaud's, Scleroderma, bibems due to near syncope. Patient was sitting on the toilet earlier today, not straining, not actively passing urine or stool when she suddenly felt very dizzy, denies associated flushing, palpitations, cp, nausea. DVT of RLE New AF RVR Acute HFPEF exacerbation Troponemia possible nstemi Acute hypoxic respiratory failure GIB w acute blood loss anemia Severe distal esophagitis near syncope urinary retention R thumb calcinosis normocytic anemia Raynauds Scleroderma severe protein calorie malnutrition -Duplex + RLE DVT of PT and lesser saphenous vein. patient on hep gtt but was w/ o ac for a while due to gib concern -rate suboptimally controlled with lopressor to 50 bid. consider rhythm control -respiratory status improvd on lasix to 80 mg d iv tolerating 4l NC -BiPAP HS -trops peaked. demand vs nstemi. not a cath candidate due to recent gib -af was probably present in the past paroxysmally since the L atrium severely dilated on TTE -cardio consult appreciated -s/p EGD no occult bleeding seen -hemodynamically stable. -continue PPI bid x 2 w total -Fe studies reviewed; venofer -GI consult apprecited, AC is permissible -patient declines colonoscopy -near syncope likely vasovagal or orthostatic due to dehydration; af and anemia may be contributing. -wilson inserted, f/u repeat urine culture negative -plan rehab Problem List - Problems (1) Finger lesion Code(s): L98.9 - DISORDER OF THE SKIN AND SUBCUTANEOUS TISSUE, UNSPECIFIED (2) Near syncope Code(s): R55 - SYNCOPE AND COLLAPSE (3) Raynauds disease Code(s): I73.00 - RAYNAUD'S SYNDROME WITHOUT GANGRENE (4) Scleroderma Code(s): M34.9 - SYSTEMIC SCLEROSIS, UNSPECIFIED (5) HLD (hyperlipidemia) Code(s): E78.5 - HYPERLIPIDEMIA, UNSPECIFIED (6) HTN (hypertension) Code(s): I10 - ESSENTIAL (PRIMARY) HYPERTENSION (7) UTI (urinary tract infection) Code(s): N39.0 - URINARY TRACT INFECTION, SITE NOT SPECIFIED (8) Severe protein-calorie malnutrition Code(s): E43 - UNSPECIFIED SEVERE PROTEIN-CALORIE MALNUTRITION Visit type - Emergency Visit Emergency Visit: Yes ED Registration Date: 12/30/18 Care time: The patient presented to the Emergency Department on the above date and was hospitalized for further evaluation of their emergent condition. - New Patient This patient is new to me today: No - Critical Care Critical Care patient: No - Discharge Referral Referred to [facility] No
[2019-01-16] MEDS: AMINO ACIDS/PROTEIN HYDROLYS 30 ML LIQUID.PKT PO SCH ×2 (09:36→17:03)
[2019-01-16] MEDS: METOPROLOL TARTRATE 25 MG TABLET (FP) PO SCH ×2 (09:36→22:37)
[2019-01-16] MEDS: FUROSEMIDE 40 MG/4 ML INJECTABLE VIAL IVPUSH SCH (09:36)
[2019-01-16] MEDS: HEPARIN NA (PORCINE) 5,000 UNITS/ML 1ML VIAL IVPUSH PRN (09:37)
[2019-01-16] MEDS: HEPARIN - 25,000 UNIT in SODIUM CHLORIDE 495 ML IV SCH ×2 (09:37→20:15)
[2019-01-16] MEDS: PANTOPRAZOLE SODIUM 40 MG VIAL IVPUSH SCH ×2 (09:41→22:37)
[2019-01-16] MEDS: POLYETHYLENE GLYCOL 3350 119 GM BTL PO SCH (09:43)
--- NOTE | 2019-01-16 10:36 | PN ---
Teaching Attending Note Name of Resident: Kamila Greenberg ATTENDING PHYSICIAN STATEMENT I saw and evaluated the patient. I reviewed the resident's note and discussed the case with the resident. I agree with the resident's findings and plan as documented. SUBJECTIVE: Ms Dillon says she is feeling better. Her sob is improving and she is not as weak. Denies cp and n/v. OBJECTIVE: Last Vital Signs Temp Pulse Resp BP Pulse Ox 36.8 C 107 H 18 120/69 94 L 01/16/19 06:13 01/16/19 06:13 01/16/19 06:13 01/16/19 06:13 01/15/19 21:00 Gen: nad Pulm: slight ronchi bilaterally but no wheezing and good air movement, oxygen Cv: irreg irreg but rate controlled w/o m/r/g Abd: +bs, s/nt/nd Ext: no c/c/e CBC, BMP 01/16/19 06:28 01/16/19 06:28 ASSESSMENT AND PLAN: (1) NSTEMI -cardiology following -no aspirin secondary to allergies -continue metoprolol -continue heparin gtt -will discuss when can change to oral AC Code(s): (2) Finger lesion -MRI finger negative Code(s): L98.9 - DISORDER OF THE SKIN AND SUBCUTANEOUS TISSUE, UNSPECIFIED (3) UTI (urinary tract infection) -urine culture negative Code(s): N39.0 - URINARY TRACT INFECTION, SITE NOT SPECIFIED (4) Atrial fibrillation -improved control with elevated metoproll -continue metoprolol and anticoagulation Code(s): I48.91 - UNSPECIFIED ATRIAL FIBRILLATION Qualifiers: Atrial fibrillation type: chronic Qualified Code(s): I48.2 - Chronic atrial fibrillation (5) HLD (hyperlipidemia) -continue statin Code(s): E78.5 - HYPERLIPIDEMIA, UNSPECIFIED (6) HTN (hypertension) -continue metoprolol Code(s): I10 - ESSENTIAL (PRIMARY) HYPERTENSION (7) Scleroderma -finished prednisone taper -suspect contributing to respiratory failure Code(s): M34.9 - SYSTEMIC SCLEROSIS, UNSPECIFIED (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
--- NOTE | 2019-01-16 13:52 | EKG ---
Test Reason : Blood Pressure : / mmHG Vent. Rate : 094 BPM Atrial Rate : 110 BPM P-R Int : 000 ms QRS Dur : 086 ms QT Int : 392 ms P-R-T Axes : 000 -37 121 degrees QTc Int : 490 ms ATRIAL FIBRILLATION WITH PREMATURE VENTRICULAR OR ABERRANTLY CONDUCTED COMPLEXES LEFT AXIS DEVIATION NONSPECIFIC ST AND T WAVE ABNORMALITY ABNORMAL ECG WHEN COMPARED WITH ECG OF 10-JAN-2019 21:55, NO SIGNIFICANT CHANGE WAS FOUND Confirmed by SAEED DILLARD MD ([id number]) on 01/16/2019 1:52:13 PM Referred By: Confirmed By:SAEED DILLARD MD
--- NOTE | 2019-01-16 15:09 | PN ---
Progress Note (short form) - Note Progress Note: Resting in NAD on NC O2. No CP. Less SOB. No acute events overnight. Intake & Output 01/13/19 01/14/19 01/15/19 01/16/19 23:59 23:59 23:59 23:59 Intake Total 623 899 918 161 Output Total 1800 1650 2300 Balance -5937 -751 -3512 161 Weight 120 lb 3.2 oz 127 lb 6.4 oz Last Vital Signs Temp Pulse Resp BP Pulse Ox 97.6 F 113 H 24 H 115/55 L 94 L 01/16/19 14:00 01/16/19 14:00 01/16/19 14:00 01/16/19 14:00 01/16/19 09:00 Active Medications Amino Acids (Prosource No Carb Liquid Pkt) 30 ml PO BID@0800,1730 [facility]S [facility]CLUDE 234 BEDS AT THE [facility] Last Admin: 01/16/19 09:36 Dose: 30 ml Atorvastatin Calcium (Lipitor -) 20 mg PO HS COUNTS INCLUDE 234 BEDS AT THE [facility] Last Admin: 01/15/19 22:52 Dose: 20 mg Furosemide (Lasix Injection -) 80 mg IVPUSH DAILY COUNTS INCLUDE 234 BEDS AT THE [facility] Last Admin: 01/16/19 09:36 Dose: 80 mg Heparin Sodium (Porcine) (Heparin -) 1,000 unit IVPUSH PRN PRN PRN Reason: Heparin Last Admin: 01/13/19 18:41 Dose: 1,000 unit Heparin Sodium (Porcine) (Heparin -) 5,000 unit IVPUSH PRN PRN PRN Reason: Heparin Last Admin: 01/16/19 09:37 Dose: 5,000 unit Heparin Sodium (Porcine) 25, (000 unit/ Sodium Chloride) 500 mls @ 16 mls/hr IV TITR ALANNA; Protocol Last Admin: 01/16/19 09:37 Dose: 1,300 unit/hr, 26 mls/hr Lactulose (Cephulac (Oral Use)) 20 gm PO TID PRN PRN Reason: CONSTIPATION Metoprolol Tartrate (Lopressor -) 50 mg PO BID COUNTS INCLUDE 234 BEDS AT THE [facility] Last Admin: 01/16/19 09:36 Dose: 50 mg Pantoprazole Sodium (Protonix Iv) 40 mg IVPUSH BID COUNTS INCLUDE 234 BEDS AT THE [facility] Last Admin: 01/16/19 09:41 Dose: 40 mg Polyethylene Glycol (Miralax (For Daily Use) -) 17 gm PO DAILY COUNTS INCLUDE 234 BEDS AT THE [facility] Last Admin: 01/16/19 09:43 Dose: Not Given Warfarin Sodium (Coumadin -) 2.5 mg PO DAILY@1800 COUNTS INCLUDE 234 BEDS AT THE [facility] Gen: Awake, NAD Heart: irregular, tachycardic Lung:decreased breath sounds at the bases, few scattered rhonchi Abd: soft, nontender Ext: no edema Laboratory Results - last 24 hr 01/16/19 01/16/19 01/16/19 06:28 06:28 06:28 WBC 12.0 H RBC 2.86 L Hgb 8.4 L Hct 25.7 L MCV 90.0 MCH 29.5 MCHC 32.8 RDW 18.4 H Plt Count 605 H MPV 8.4 PTT (Actin FS) 34.6 Sodium 140 Potassium 3.8 Chloride 104 Carbon Dioxide 29 Anion Gap 8 BUN 33.4 H Creatinine 1.0 Est GFR (CKD-EPI)AfAm 59.91 Est GFR (CKD-EPI)NonAf 51.69 Random Glucose 101 Calcium 8.9 Phosphorus 4.3 Magnesium 2.1 A/P Acute on Chronic Diastolic Heart Failure Atrial Fibrillation with RVR +Troponins likely Demand Ischemia Scleroderma HTN Hyperlipidemia Right Popliteal DVT - Lasix - monitor urine output, creatinine - rate control as per cardiology - continue anticoagulation - O2 to keep Spo2 >90% - aspiration precautions - monitor H/H - inhaled bronchodilators Dr Sultana
--- NOTE | 2019-01-16 15:40 | EKG ---
Test Reason : Blood Pressure : / mmHG Vent. Rate : 104 BPM Atrial Rate : 178 BPM P-R Int : 000 ms QRS Dur : 098 ms QT Int : 334 ms P-R-T Axes : 000 -38 115 degrees QTc Int : 439 ms ATRIAL FIBRILLATION WITH RAPID VENTRICULAR RESPONSE LEFT AXIS DEVIATION NONSPECIFIC ST AND T WAVE ABNORMALITY ABNORMAL ECG WHEN COMPARED WITH ECG OF 13-JAN-2019 10:09, NONSPECIFIC T WAVE ABNORMALITY NOW EVIDENT IN INFERIOR LEADS Confirmed by SAEED DILLARD MD ([id number]) on 01/16/2019 3:40:13 PM Referred By: ANTONINA HOLMAN DR Confirmed By:SAEED DILLARD MD
[2019-01-16] MEDS: ATORVASTATIN CA 20 MG TABLET (FP) PO SCH (22:37)
[2019-01-17 02:28] LABS: INR 1.18 (0.83-1.09)
[2019-01-17] MEDS: WARFARIN NA 2.5 MG TABLET (FP) PO SCH ×2 (02:40→16:59)
[2019-01-17] MEDS: HEPARIN - 25,000 UNIT in SODIUM CHLORIDE 495 ML IV SCH (02:46)
[2019-01-17] MEDS ORDERED: PT OWN MED DRAWER 7, Y5N ONE (08:21)
[2019-01-17] MEDS: AMINO ACIDS/PROTEIN HYDROLYS 30 ML LIQUID.PKT PO SCH ×2 (08:24→16:52)
[2019-01-17 08:26] LABS: HEMATOCRIT 27.8 % (32.4-45.2); MCH 29.5 pg (25.7-33.7); MCHC 32.6 g/dl (32.0-36.0); MEAN CELL VOLUME 90.7 fl (80-96); MEAN PLT VOLUME 8.5 fl (7.5-11.1); PLATELET COUNT 537 K/MM3 (134-434); RBC 3.06 M/mm3 (3.60-5.2); RDW 18.4 % (11.6-15.6); WHITE BLOOD COUNT 11.6 K/mm3 (4.0-10.0)
[2019-01-17 09:12] LABS: INR 1.06 (0.83-1.09); PROTHROMBIN TIME (PATIENT) 12.5 SEC (9.7-13.0)
--- NOTE | 2019-01-17 09:13 | PN ---
Progress Note, Physician Chief Complaint: Events noted Covering for Dr. Serrato/Clark Not in distress History of Present Illness: Patient was seen and examined. Awake and alert. Chart was reviewed Denies chest pain, SOB or palpitations - Current Medication List Current Medications: Active Medications Amino Acids (Prosource No Carb Liquid Pkt) 30 ml PO BID@0800,1730 [facility] Last Admin: 01/17/19 08:24 Dose: 30 ml Atorvastatin Calcium (Lipitor -) 20 mg PO HS [facility] Last Admin: 01/16/19 22:37 Dose: 20 mg Furosemide (Lasix Injection -) 80 mg IVPUSH DAILY [facility] Last Admin: 01/16/19 09:36 Dose: 80 mg Heparin Sodium (Porcine) (Heparin -) 1,000 unit IVPUSH PRN PRN PRN Reason: Heparin Last Admin: 01/13/19 18:41 Dose: 1,000 unit Heparin Sodium (Porcine) (Heparin -) 5,000 unit IVPUSH PRN PRN PRN Reason: Heparin Last Admin: 01/16/19 09:37 Dose: 5,000 unit Heparin Sodium (Porcine) 25, (000 unit/ Sodium Chloride) 500 mls @ 16 mls/hr IV TITR [facility]; Protocol Last Admin: 01/17/19 02:46 Dose: 1,150 unit/hr, 23 mls/hr Lactulose (Cephulac (Oral Use)) 20 gm PO TID PRN PRN Reason: CONSTIPATION Metoprolol Tartrate (Lopressor -) 50 mg PO BID [facility] Last Admin: 01/16/19 22:37 Dose: 50 mg Pantoprazole Sodium (Protonix Iv) 40 mg IVPUSH BID [facility] Last Admin: 01/16/19 22:37 Dose: 40 mg Polyethylene Glycol (Miralax (For Daily Use) -) 17 gm PO DAILY [facility] Last Admin: 01/16/19 09:43 Dose: Not Given Warfarin Sodium (Coumadin -) 2.5 mg PO DAILY@1800 [facility] Last Admin: 01/17/19 02:40 Dose: 2.5 mg - Objective Vital Signs: Vital Signs Temperature 97.9 F 01/17/19 08:24 Pulse Rate 81 01/17/19 08:24 Respiratory Rate 16 01/17/19 08:24 Blood Pressure 115/55 L 01/17/19 08:24 O2 Sat by Pulse Oximetry (%) 94 L 01/16/19 09:00 Eyes: Yes: PERRL HENT: Yes: Atraumatic Neck: Yes: Supple Cardiovascular: Yes: Pulse Irregular, S1, S2 Respiratory: Yes: Diminished Gastrointestinal: Yes: Normal Bowel Sounds, Soft. No: Tenderness Edema: No Additional Findings/Remarks: - Review of Systems Constitutional: denies: Chills, Fever Cardiovascular: denies: Chest Pain, Palpitations, Shortness of Breath Respiratory: denies: Cough, Hemoptysis, Orthopnea, PND, SOB, SOB on Exertion Gastrointestinal: denies: Abdominal Pain, Constipation, Diarrhea, Melena, Nausea , Rectal Bleeding, Vomiting Genitourinary: denies: Dysuria, Hematuria Musculoskeletal: denies: Back Pain, Joint Pain Neurological: denies: Dizziness, Syncope. denies: Confusion, Headache, Numbness , Seizure, Unsteady Gait Labs: CBC, BMP 01/17/19 07:18 INR, PTT INR 1.18 (0.83-1.09) H 01/16/19 17:30 Problem List - Problems (1) Acute on chronic diastolic CHF (congestive heart failure) Code(s): I50.33 - ACUTE ON CHRONIC DIASTOLIC (CONGESTIVE) HEART FAILURE (2) Anemia Code(s): D64.9 - ANEMIA, UNSPECIFIED (3) Chronic interstitial lung disease Code(s): J84.9 - INTERSTITIAL PULMONARY DISEASE, UNSPECIFIED (4) Diastolic dysfunction Code(s): I51.89 - OTHER ILL-DEFINED HEART DISEASES (5) Elevated troponin Code(s): R74.8 - ABNORMAL LEVELS OF OTHER SERUM ENZYMES (6) Near syncope Code(s): R55 - SYNCOPE AND COLLAPSE (7) Raynaud's phenomenon Code(s): I73.00 - RAYNAUD'S SYNDROME WITHOUT GANGRENE (8) Scleroderma Code(s): M34.9 - SYSTEMIC SCLEROSIS, UNSPECIFIED (9) Atrial fibrillation Code(s): I48.91 - UNSPECIFIED ATRIAL FIBRILLATION Qualifiers: Atrial fibrillation type: chronic Qualified Code(s): I48.2 - Chronic atrial fibrillation (10) HLD (hyperlipidemia) Code(s): E78.5 - HYPERLIPIDEMIA, UNSPECIFIED (11) HTN (hypertension) Code(s): I10 - ESSENTIAL (PRIMARY) HYPERTENSION Qualifiers: Hypertension type: essential hypertension Qualified Code(s): I10 - Essential (primary) hypertension (12) Weakness Code(s): R53.1 - WEAKNESS Assessment/Plan 1. Right popliteal DVT 2. Atrial fibrillation with variable HR - persistent 3. Acute on chronic LV diastolic failure 4. Scleroderma with CREST syndrome 5. Raynauds 6. MGUS 7. HTN 8. Hypercholesterolemia 9. Anemia 10. Elevated troponin suggests demand ischemia vs. NSTEMI PLAN: 1. Continue Metoprolol 50 mg BID for rate control 2. Continue Lipitor 3. Diuretics - currently on Lasix 80 mg IV daily. Monitor renal function and electrolytes 4. Follow CBC 5. Heparin gtt and Coumadin dosing (INR 2-3) 6. Trend troponin Further plans to follow and Dr. Serrato to resume care on Saturday Js Shipley MD
[2019-01-17 09:21] LABS: CALCIUM 8.6 mg/dL (8.5-10.1); MAGNESIUM 2.1 mg/dL (1.8-2.4); PHOSPHOROUS 3.6 mg/dL (2.5-4.9); POTASSIUM 3.8 mmol/L (3.5-5.1)
[2019-01-17 09:31] LABS: ACTIVATED PTT 102.5 SECONDS (25.2-36.5)
[2019-01-17] MEDS: METOPROLOL TARTRATE 25 MG TABLET (FP) PO SCH ×2 (09:34→22:35)
[2019-01-17] MEDS: FUROSEMIDE 40 MG/4 ML INJECTABLE VIAL IVPUSH SCH (09:35)
[2019-01-17] MEDS: POLYETHYLENE GLYCOL 3350 119 GM BTL PO SCH ×2 (09:35→09:51)
[2019-01-17] MEDS: PANTOPRAZOLE SODIUM 40 MG VIAL IVPUSH SCH ×2 (09:36→22:35)
--- NOTE | 2019-01-17 11:12 | PN ---
Progress Note, Physician Chief Complaint: Ms Dillon says she feels good today. Denies cp, sob, n/v. Hopeful to leave the hospital soon. - Current Medication List Current Medications: Active Medications Amino Acids (Prosource No Carb Liquid Pkt) 30 ml PO BID@0800,1730 [facility] Last Admin: 01/17/19 08:24 Dose: 30 ml Atorvastatin Calcium (Lipitor -) 20 mg PO HS [facility] Last Admin: 01/16/19 22:37 Dose: 20 mg Furosemide (Lasix Injection -) 80 mg IVPUSH DAILY [facility] Last Admin: 01/17/19 09:35 Dose: 80 mg Heparin Sodium (Porcine) (Heparin -) 1,000 unit IVPUSH PRN PRN PRN Reason: Heparin Last Admin: 01/13/19 18:41 Dose: 1,000 unit Heparin Sodium (Porcine) (Heparin -) 5,000 unit IVPUSH PRN PRN PRN Reason: Heparin Last Admin: 01/16/19 09:37 Dose: 5,000 unit Heparin Sodium (Porcine) 25, (000 unit/ Sodium Chloride) 500 mls @ 16 mls/hr IV TITR [facility]; Protocol Last Titration: 01/17/19 10:36 Dose: 1,000 unit/hr, 20 mls/hr Lactulose (Cephulac (Oral Use)) 20 gm PO TID PRN PRN Reason: CONSTIPATION Metoprolol Tartrate (Lopressor -) 50 mg PO BID [facility] Last Admin: 01/17/19 09:34 Dose: 50 mg Pantoprazole Sodium (Protonix Iv) 40 mg IVPUSH BID [facility] Last Admin: 01/17/19 09:36 Dose: 40 mg Polyethylene Glycol (Miralax (For Daily Use) -) 17 gm PO DAILY [facility] Last Admin: 01/17/19 09:51 Dose: 17 gm Warfarin Sodium (Coumadin -) 2.5 mg PO DAILY@1800 [facility] Last Admin: 01/17/19 02:40 Dose: 2.5 mg - Objective Vital Signs: Vital Signs Temperature 36.6 C 01/17/19 08:24 Pulse Rate 81 01/17/19 08:24 Respiratory Rate 16 01/17/19 09:00 Blood Pressure 115/55 L 01/17/19 08:24 O2 Sat by Pulse Oximetry (%) 94 L 01/16/19 09:00 Constitutional: Yes: Well Nourished, No Distress, Calm Cardiovascular: Yes: Pulse Irregular. No: Tachycardia, Gallop, Murmur, Rub Respiratory: Yes: Regular, CTA Bilaterally. No: Rales, Rhonchi, Wheezes Gastrointestinal: Yes: Normal Bowel Sounds, Soft. No: Distention, Tenderness Extremities: Yes: WNL Edema: No Labs: CBC, BMP 01/17/19 07:18 01/17/19 07:18 INR, PTT INR 1.06 (0.83-1.09) 01/17/19 07:18 Assessment/Plan (1) NSTEMI -cardiology following -medical management Code(s): (2) Finger lesion -MRI finger negative Code(s): L98.9 - DISORDER OF THE SKIN AND SUBCUTANEOUS TISSUE, UNSPECIFIED (3) UTI (urinary tract infection) -urine culture negative Code(s): N39.0 - URINARY TRACT INFECTION, SITE NOT SPECIFIED (4) Atrial fibrillation -rate controlled -continue metoprolol 50mg bid -continue heparin bridge to coumadin Code(s): I48.91 - UNSPECIFIED ATRIAL FIBRILLATION Qualifiers: Atrial fibrillation type: chronic Qualified Code(s): I48.2 - Chronic atrial fibrillation (5) HLD (hyperlipidemia) -continue statin Code(s): E78.5 - HYPERLIPIDEMIA, UNSPECIFIED (6) HTN (hypertension) -continue metoprolol Code(s): I10 - ESSENTIAL (PRIMARY) HYPERTENSION (7) Scleroderma -finished prednisone taper -suspect contributing to respiratory failure Code(s): M34.9 - SYSTEMIC SCLEROSIS, UNSPECIFIED (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
--- NOTE | 2019-01-17 14:47 | PN ---
Progress Note (short form) - Note Progress Note: Resting in NAD on NC O2. No CP. Less SOB. No acute events overnight. Intake & Output 01/14/19 01/15/19 01/16/19 01/17/19 23:59 23:59 23:59 23:59 Intake Total 636 551 3367 130 Output Total 1650 2300 1300 Balance -751 -1382 51 130 Weight 120 lb 3.2 oz 127 lb 6.4 oz 125 lb 9.6 oz Last Vital Signs Temp Pulse Resp BP Pulse Ox 97.9 F 95 H 16 117/65 94 L 01/17/19 12:42 01/17/19 12:42 01/17/19 09:00 01/17/19 12:42 01/16/19 09:00 Active Medications Amino Acids (Prosource No Carb Liquid Pkt) 30 ml PO BID@0800,1730 [facility] Last Admin: 01/17/19 08:24 Dose: 30 ml Atorvastatin Calcium (Lipitor -) 20 mg PO HS [facility] Last Admin: 01/16/19 22:37 Dose: 20 mg Furosemide (Lasix Injection -) 80 mg IVPUSH DAILY [facility] Last Admin: 01/17/19 09:35 Dose: 80 mg Heparin Sodium (Porcine) (Heparin -) 1,000 unit IVPUSH PRN PRN PRN Reason: Heparin Last Admin: 01/13/19 18:41 Dose: 1,000 unit Heparin Sodium (Porcine) (Heparin -) 5,000 unit IVPUSH PRN PRN PRN Reason: Heparin Last Admin: 01/16/19 09:37 Dose: 5,000 unit Heparin Sodium (Porcine) 25, (000 unit/ Sodium Chloride) 500 mls @ 16 mls/hr IV TITR [facility]; Protocol Last Titration: 01/17/19 10:36 Dose: 1,000 unit/hr, 20 mls/hr Lactulose (Cephulac (Oral Use)) 20 gm PO TID PRN PRN Reason: CONSTIPATION Metoprolol Tartrate (Lopressor -) 50 mg PO BID [facility] Last Admin: 01/17/19 09:34 Dose: 50 mg Pantoprazole Sodium (Protonix Iv) 40 mg IVPUSH BID [facility] Last Admin: 01/17/19 09:36 Dose: 40 mg Polyethylene Glycol (Miralax (For Daily Use) -) 17 gm PO DAILY [facility] Last Admin: 01/17/19 09:51 Dose: 17 gm Warfarin Sodium (Coumadin -) 2.5 mg PO DAILY@1800 [facility] Last Admin: 01/17/19 02:40 Dose: 2.5 mg Gen: Awake, NAD Heart: irregular Lung:decreased breath sounds at the bases, few scattered rhonchi Abd: soft, nontender Ext: no edema Laboratory Results - last 24 hr 01/16/19 01/16/19 01/17/19 17:30 17:30 01:50 WBC RBC Hgb Hct MCV MCH MCHC RDW Plt Count MPV PT with INR 14.00 H INR 1.18 H PTT (Actin FS) 116.0 H 60.6 H Sodium Potassium Chloride Carbon Dioxide Anion Gap BUN Creatinine Est GFR (CKD-EPI)AfAm Est GFR (CKD-EPI)NonAf Random Glucose Calcium Phosphorus Magnesium 01/17/19 01/17/19 01/17/19 07:18 07:18 07:18 WBC 11.6 H RBC 3.06 L Hgb 9.0 L Hct 27.8 L MCV 90.7 MCH 29.5 MCHC 32.6 RDW 18.4 H Plt Count 537 H MPV 8.5 PT with INR 12.50 INR 1.06 PTT (Actin FS) 102.5 H Sodium 142 Potassium 3.8 Chloride 104 Carbon Dioxide 31 Anion Gap 7 L BUN 36.0 H Creatinine 1.0 Est GFR (CKD-EPI)AfAm 59.91 Est GFR (CKD-EPI)NonAf 51.69 Random Glucose 97 Calcium 8.6 Phosphorus 3.6 Magnesium 2.1 A/P Acute on Chronic Diastolic Heart Failure Atrial Fibrillation with RVR +Troponins likely Demand Ischemia Scleroderma HTN Hyperlipidemia Right Popliteal DVT - Lasix - monitor urine output, creatinine - rate control as per cardiology - continue anticoagulation - O2 to keep Spo2 >90% - aspiration precautions - monitor H/H - inhaled bronchodilators Dr Sultana
[2019-01-17] MEDS: ATORVASTATIN CA 20 MG TABLET (FP) PO SCH (22:35)
[2019-01-18] MEDS ORDERED: HEPARIN NA (PORCINE) 5,000 UNITS/ML 1ML VIAL IVPUSH PRN ×2 (03:14)
[2019-01-18 07:24] LABS: BASO % 0.4 % (0-2.0); EOS % 0.8 % (0-4.5); HEMATOCRIT 23.9 % (32.4-45.2); HEMOGLOBIN 8.2 GM/dL (10.7-15.3); LYMPH % 24.1 % (8-40); MCHC 34.5 g/dl (32.0-36.0); MEAN CELL VOLUME 89.9 fl (80-96); MONO % 4.9 % (3.8-10.2); NEUT % 69.8 % (42.8-82.8); PLATELET COUNT 545 K/MM3 (134-434); RBC 2.66 M/mm3 (3.60-5.2); RDW 18.2 % (11.6-15.6)
[2019-01-18 07:36] LABS: INR 1.13 (0.83-1.09); PROTHROMBIN TIME (PATIENT) 13.4 SEC (9.7-13.0)
[2019-01-18 08:19] LABS: BLOOD UREA NITROGEN 35.8 mg/dL (7-18); CALCIUM 8.3 mg/dL (8.5-10.1); CREATININE 0.9 mg/dL (0.55-1.3); PHOSPHOROUS 3.6 mg/dL (2.5-4.9); POTASSIUM 3.6 mmol/L (3.5-5.1)
--- NOTE | 2019-01-18 09:46 | PN ---
Progress Note, Physician Chief Complaint: Covering for Dr. Serrato/Clark Not in distress History of Present Illness: Patient was seen and examined. Awake and alert. Chart was reviewed Denies chest pain, SOB or palpitations - Current Medication List Current Medications: Active Medications Amino Acids (Prosource No Carb Liquid Pkt) 30 ml PO BID@0800,1730 [facility] Last Admin: 01/17/19 16:52 Dose: 30 ml Atorvastatin Calcium (Lipitor -) 20 mg PO HS [facility] Last Admin: 01/17/19 22:35 Dose: 20 mg Furosemide (Lasix Injection -) 80 mg IVPUSH DAILY [facility] Last Admin: 01/17/19 09:35 Dose: 80 mg Heparin Sodium (Porcine) (Heparin -) 1,000 unit IVPUSH PRN PRN PRN Reason: Heparin Heparin Sodium (Porcine) (Heparin -) 5,000 unit IVPUSH PRN PRN PRN Reason: Heparin Heparin Sodium (Porcine) 25, (000 unit/ Sodium Chloride) 500 mls @ 16 mls/hr IV TITR [facility]; Protocol Lactulose (Cephulac (Oral Use)) 20 gm PO TID PRN PRN Reason: CONSTIPATION Metoprolol Tartrate (Lopressor -) 50 mg PO BID [facility] Last Admin: 01/17/19 22:35 Dose: 50 mg Pantoprazole Sodium (Protonix Iv) 40 mg IVPUSH BID [facility] Last Admin: 01/17/19 22:35 Dose: 40 mg Polyethylene Glycol (Miralax (For Daily Use) -) 17 gm PO DAILY [facility] Last Admin: 01/17/19 09:51 Dose: 17 gm Warfarin Sodium (Coumadin -) 2.5 mg PO DAILY@1800 [facility] Last Admin: 01/17/19 16:59 Dose: 2.5 mg - Objective Vital Signs: Vital Signs Temperature 97.5 F L 01/18/19 06:00 Pulse Rate 81 01/18/19 06:00 Respiratory Rate 20 01/18/19 06:00 Blood Pressure 107/53 L 01/18/19 06:00 O2 Sat by Pulse Oximetry (%) 96 01/17/19 21:00 Eyes: Yes: PERRL HENT: Yes: Atraumatic Neck: Yes: Supple Cardiovascular: Yes: Pulse Irregular, S1, S2 Respiratory: Yes: CTA Bilaterally Gastrointestinal: Yes: Normal Bowel Sounds, Soft. No: Tenderness Edema: No Additional Findings/Remarks: - Review of Systems Constitutional: denies: Chills, Fever Cardiovascular: denies: Chest Pain, Palpitations, Shortness of Breath Respiratory: denies: Cough, Hemoptysis, Orthopnea, PND, SOB, SOB on Exertion Gastrointestinal: denies: Abdominal Pain, Constipation, Diarrhea, Melena, Nausea , Rectal Bleeding, Vomiting Genitourinary: denies: Dysuria, Hematuria Musculoskeletal: denies: Back Pain, Joint Pain Neurological: denies: Dizziness, Syncope. denies: Confusion, Headache, Numbness , Seizure, Unsteady Gait Labs: CBC, BMP 01/18/19 06:38 01/18/19 06:38 INR, PTT INR 1.13 (0.83-1.09) H 01/18/19 06:38 Problem List - Problems (1) Acute on chronic diastolic CHF (congestive heart failure) Code(s): I50.33 - ACUTE ON CHRONIC DIASTOLIC (CONGESTIVE) HEART FAILURE (2) Anemia Code(s): D64.9 - ANEMIA, UNSPECIFIED (3) Chronic interstitial lung disease Code(s): J84.9 - INTERSTITIAL PULMONARY DISEASE, UNSPECIFIED (4) Diastolic dysfunction Code(s): I51.89 - OTHER ILL-DEFINED HEART DISEASES (5) Elevated troponin Code(s): R74.8 - ABNORMAL LEVELS OF OTHER SERUM ENZYMES (6) Near syncope Code(s): R55 - SYNCOPE AND COLLAPSE (7) Raynaud's phenomenon Code(s): I73.00 - RAYNAUD'S SYNDROME WITHOUT GANGRENE (8) Scleroderma Code(s): M34.9 - SYSTEMIC SCLEROSIS, UNSPECIFIED (9) Atrial fibrillation Code(s): I48.91 - UNSPECIFIED ATRIAL FIBRILLATION Qualifiers: Atrial fibrillation type: chronic Qualified Code(s): I48.2 - Chronic atrial fibrillation (10) HLD (hyperlipidemia) Code(s): E78.5 - HYPERLIPIDEMIA, UNSPECIFIED Qualifiers: Hyperlipidemia type: pure hypercholesterolemia Qualified Code(s): E78.00 - Pure hypercholesterolemia, unspecified; E78.0 - Pure hypercholesterolemia (11) HTN (hypertension) Code(s): I10 - ESSENTIAL (PRIMARY) HYPERTENSION Qualifiers: Hypertension type: essential hypertension Qualified Code(s): I10 - Essential (primary) hypertension (12) Weakness Code(s): R53.1 - WEAKNESS Assessment/Plan 1. Right popliteal DVT 2. Atrial fibrillation with variable HR - persistent 3. Acute on chronic LV diastolic failure 4. Scleroderma with CREST syndrome 5. Raynauds 6. MGUS 7. HTN 8. Hypercholesterolemia 9. Anemia 10. Elevated troponin suggests demand ischemia vs. NSTEMI PLAN: 1. Continue Metoprolol 50 mg BID for rate control 2. Continue Lipitor 3. Diuretics - currently on Lasix 80 mg IV daily. Monitor renal function and electrolytes 4. Follow CBC 5. Heparin gtt and Coumadin dosing (INR 2-3) Further plans to follow and Dr. Serrato to resume care on Saturday Js Shipley MD
[2019-01-18] MEDS: HEPARIN - 25,000 UNIT in SODIUM CHLORIDE 495 ML IV SCH (10:12)
[2019-01-18] MEDS: FUROSEMIDE 40 MG/4 ML INJECTABLE VIAL IVPUSH SCH (10:13)
[2019-01-18] MEDS: POLYETHYLENE GLYCOL 3350 119 GM BTL PO SCH (10:13)
[2019-01-18] MEDS: PANTOPRAZOLE SODIUM 40 MG VIAL IVPUSH SCH ×2 (10:13→21:39)
[2019-01-18] MEDS: AMINO ACIDS/PROTEIN HYDROLYS 30 ML LIQUID.PKT PO SCH ×2 (10:13→17:08)
[2019-01-18] MEDS: METOPROLOL TARTRATE 25 MG TABLET (FP) PO SCH ×2 (10:13→21:39)
--- NOTE | 2019-01-18 10:34 | PN ---
Progress Note, Physician Chief Complaint: Ms Dillon says she feels good today. Denies cp, sob, n/v. - Current Medication List Current Medications: Active Medications Amino Acids (Prosource No Carb Liquid Pkt) 30 ml PO BID@0800,1730 [facility] Last Admin: 01/18/19 10:13 Dose: 30 ml Atorvastatin Calcium (Lipitor -) 20 mg PO HS [facility] Last Admin: 01/17/19 22:35 Dose: 20 mg Furosemide (Lasix Injection -) 80 mg IVPUSH DAILY [facility] Last Admin: 01/18/19 10:13 Dose: 80 mg Heparin Sodium (Porcine) (Heparin -) 1,000 unit IVPUSH PRN PRN PRN Reason: Heparin Heparin Sodium (Porcine) (Heparin -) 5,000 unit IVPUSH PRN PRN PRN Reason: Heparin Heparin Sodium (Porcine) 25, (000 unit/ Sodium Chloride) 500 mls @ 16 mls/hr IV TITR [facility]; Protocol Last Titration: 01/18/19 10:30 Dose: 0 unit/hr, 0 mls/hr Lactulose (Cephulac (Oral Use)) 20 gm PO TID PRN PRN Reason: CONSTIPATION Metoprolol Tartrate (Lopressor -) 50 mg PO BID [facility] Last Admin: 01/18/19 10:13 Dose: 50 mg Pantoprazole Sodium (Protonix Iv) 40 mg IVPUSH BID [facility] Last Admin: 01/18/19 10:13 Dose: 40 mg Polyethylene Glycol (Miralax (For Daily Use) -) 17 gm PO DAILY [facility] Last Admin: 01/18/19 10:13 Dose: Not Given Warfarin Sodium (Coumadin -) 5 mg PO DAILY@1800 [facility] - Objective Vital Signs: Vital Signs Temperature 36.4 C L 01/18/19 06:00 Pulse Rate 81 01/18/19 06:00 Respiratory Rate 20 01/18/19 06:00 Blood Pressure 107/53 L 01/18/19 06:00 O2 Sat by Pulse Oximetry (%) 96 01/17/19 21:00 Constitutional: Yes: Well Nourished, No Distress, Calm Cardiovascular: Yes: Pulse Irregular. No: Tachycardia, Gallop, Murmur, Rub Respiratory: Yes: Regular, CTA Bilaterally. No: Rales, Rhonchi, Wheezes Gastrointestinal: Yes: Normal Bowel Sounds, Soft. No: Distention, Tenderness Extremities: Yes: WNL Edema: No Labs: CBC, BMP 01/18/19 06:38 01/18/19 06:38 INR, PTT INR 1.13 (0.83-1.09) H 01/18/19 06:38 Assessment/Plan (1) NSTEMI -cardiology following -medical management Code(s): (2) Finger lesion -MRI finger negative Code(s): L98.9 - DISORDER OF THE SKIN AND SUBCUTANEOUS TISSUE, UNSPECIFIED (3) UTI (urinary tract infection) -urine culture negative Code(s): N39.0 - URINARY TRACT INFECTION, SITE NOT SPECIFIED (4) Atrial fibrillation -rate controlled -continue metoprolol 50mg bid -continue heparin bridge to coumadin -increase coumadin to 5mg today Code(s): I48.91 - UNSPECIFIED ATRIAL FIBRILLATION Qualifiers: Atrial fibrillation type: chronic Qualified Code(s): I48.2 - Chronic atrial fibrillation (5) HLD (hyperlipidemia) -continue statin Code(s): E78.5 - HYPERLIPIDEMIA, UNSPECIFIED (6) HTN (hypertension) -continue metoprolol Code(s): I10 - ESSENTIAL (PRIMARY) HYPERTENSION (7) Scleroderma -finished prednisone taper -suspect contributing to respiratory failure Code(s): M34.9 - SYSTEMIC SCLEROSIS, UNSPECIFIED (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
--- NOTE | 2019-01-18 13:52 | PN ---
Progress Note (short form) - Note Progress Note: Resting in NAD on [place] O2. Overall feeling better. No CP / SOB. No acute events overnight. Intake & Output 01/15/19 01/16/19 01/17/19 01/18/19 23:59 23:59 23:59 23:59 Intake Total 918 1351 1247 200 Output Total 2300 1300 2000 400 Balance -1382 51 -753 -200 Weight 120 lb 3.2 oz 127 lb 6.4 oz 125 lb 9.6 oz 126 lb 12.8 oz Last Vital Signs Temp Pulse Resp BP Pulse Ox 97.8 F 105 H 20 137/76 96 01/18/19 10:00 01/18/19 10:00 01/18/19 10:00 01/18/19 10:00 01/18/19 09:00 Active Medications Amino Acids (Prosource No Carb Liquid Pkt) 30 ml PO BID@0800,1730 [facility] Last Admin: 01/18/19 10:13 Dose: 30 ml Atorvastatin Calcium (Lipitor -) 20 mg PO HS [facility] Last Admin: 01/17/19 22:35 Dose: 20 mg Furosemide (Lasix -) 40 mg PO BID@0600,1400 [facility] Heparin Sodium (Porcine) (Heparin -) 1,000 unit IVPUSH PRN PRN PRN Reason: Heparin Heparin Sodium (Porcine) (Heparin -) 5,000 unit IVPUSH PRN PRN PRN Reason: Heparin Heparin Sodium (Porcine) 25, (000 unit/ Sodium Chloride) 500 mls @ 16 mls/hr IV TITR [facility]; Protocol Last Titration: 01/18/19 11:00 Dose: 900 unit/hr, 18 mls/hr Lactulose (Cephulac (Oral Use)) 20 gm PO TID PRN PRN Reason: CONSTIPATION Metoprolol Tartrate (Lopressor -) 50 mg PO BID [facility] Last Admin: 01/18/19 10:13 Dose: 50 mg Pantoprazole Sodium (Protonix Iv) 40 mg IVPUSH BID [facility] Last Admin: 01/18/19 10:13 Dose: 40 mg Polyethylene Glycol (Miralax (For Daily Use) -) 17 gm PO DAILY [facility] Last Admin: 01/18/19 10:13 Dose: Not Given Warfarin Sodium (Coumadin -) 5 mg PO DAILY@1800 [facility] Gen: Awake, NAD Heart: irregular Lung:decreased breath sounds at the bases, few scattered rhonchi Abd: soft, nontender Ext: no edema Laboratory Results - last 24 hr 01/17/19 01/18/19 01/18/19 15:40 06:38 06:38 WBC 11.0 H RBC 2.66 L Hgb 8.2 L Hct 23.9 L MCV 89.9 MCH 31.0 MCHC 34.5 RDW 18.2 H Plt Count 545 H MPV 8.0 Absolute Neuts (auto) 7.7 Neutrophils % 69.8 Lymphocytes % 24.1 D Monocytes % 4.9 Eosinophils % 0.8 D Basophils % 0.4 Nucleated RBC % 0 PT with INR 13.40 H INR 1.13 H PTT (Actin FS) 72.7 H Sodium Potassium Chloride Carbon Dioxide Anion Gap BUN Creatinine Est GFR (CKD-EPI)AfAm Est GFR (CKD-EPI)NonAf Random Glucose Calcium Phosphorus Magnesium Stool Occult Blood 01/18/19 01/18/19 01/18/19 06:38 06:38 09:45 WBC RBC Hgb Hct MCV MCH MCHC RDW Plt Count MPV Absolute Neuts (auto) Neutrophils % Lymphocytes % Monocytes % Eosinophils % Basophils % Nucleated RBC % PT with INR INR PTT (Actin FS) 95.9 H Sodium 140 Potassium 3.6 Chloride 102 Carbon Dioxide 30 Anion Gap 7 L BUN 35.8 H Creatinine 0.9 Est GFR (CKD-EPI)AfAm 68.05 Est GFR (CKD-EPI)NonAf 58.71 Random Glucose 97 Calcium 8.3 L Phosphorus 3.6 Magnesium 2.0 Stool Occult Blood Negative A/P Acute on Chronic Diastolic Heart Failure Atrial Fibrillation with RVR +Troponins likely Demand Ischemia Scleroderma HTN Hyperlipidemia Right Popliteal DVT - Lasix - monitor urine output, creatinine - rate control as per cardiology - continue anticoagulation - O2 to keep Spo2 >90% - aspiration precautions - monitor H/H - inhaled bronchodilators Dr Sultana
[2019-01-18] MEDS: WARFARIN NA 5 MG TABLET (UD) PO SCH (17:08)
[2019-01-18] MEDS: ATORVASTATIN CA 20 MG TABLET (FP) PO SCH (21:39)
[2019-01-19] MEDS: HEPARIN - 25,000 UNIT in SODIUM CHLORIDE 495 ML IV SCH (03:03)
[2019-01-19] MEDS: FUROSEMIDE 40 MG TABLET (FP) PO SCH ×2 (06:11→15:10)
[2019-01-19 07:19] LABS: INR 1.27 (0.83-1.09)
--- NOTE | 2019-01-19 07:22 | PN ---
Teaching Attending Note Name of Resident: Kamila Greenberg ATTENDING PHYSICIAN STATEMENT I saw and evaluated the patient. I reviewed the resident's note and discussed the case with the resident. I agree with the resident's findings and plan as documented with exceptions below. SUBJECTIVE: patient seen and examined. feels better, overall weak, also reports some heel pain. No dyspnea, chest pain, dizziness or palpitations. OBJECTIVE: Vital Signs Period Temp Pulse Resp BP Sys/Stewart Pulse Ox Last 24 Hr 97.8 F-98.7 F 86-110 20-20 102-137/52-76 96 Intake & Output 01/16/19 01/17/19 01/18/19 01/19/19 23:59 23:59 23:59 23:59 Intake Total 1351 1247 1384 Output Total 1300 2000 1900 Balance 38 -744 -370 Weight 127 lb 6.4 oz 125 lb 9.6 oz 126 lb 12.8 oz General: sitting in bed in no acute distress neck: soft, supple, no JVD Chest: improved bibasilar rales from last week CVS: S1S2 irregular abdomen: soft, NT, ND Extremities: arthritic deformities, no edema noted Home Medications Medication Instructions Recorded Metoprolol Succinate [Toprol Xl] 50 mg PO DAILY 10/13/18 Valsartan 320 mg PO DAILY 10/13/18 Gabapentin [Neurontin -] 100 mg PO HS capsule 10/21/18 Atorvastatin Ca [Lipitor] 20 mg PO HS 12/17/18 Bethanechol Chloride 25 mg PO TID 12/22/18 Pantoprazole Sodium [Protonix] 40 mg PO BID #28 tablet. 01/02/19 predniSONE [Deltasone -] 5 mg PO DAILY #3 tablet 01/02/19 Active Medications Amino Acids (Prosource No Carb Liquid Pkt) 30 ml PO BID@0800,1730 [facility] Last Admin: 01/18/19 17:08 Dose: 30 ml Atorvastatin Calcium (Lipitor -) 20 mg PO HS [facility] Last Admin: 01/18/19 21:39 Dose: 20 mg Furosemide (Lasix -) 40 mg PO BID@0600,1400 [facility] Last Admin: 01/19/19 06:11 Dose: 40 mg Heparin Sodium (Porcine) (Heparin -) 1,000 unit IVPUSH PRN PRN PRN Reason: Heparin Heparin Sodium (Porcine) (Heparin -) 5,000 unit IVPUSH PRN PRN PRN Reason: Heparin Heparin Sodium (Porcine) 25, (000 unit/ Sodium Chloride) 500 mls @ 16 mls/hr IV TITR [facility]; Protocol Last Admin: 01/19/19 03:03 Dose: 900 unit/hr, 18 mls/hr Lactulose (Cephulac (Oral Use)) 20 gm PO TID PRN PRN Reason: CONSTIPATION Metoprolol Tartrate (Lopressor -) 50 mg PO BID [facility] Last Admin: 01/18/19 21:39 Dose: 50 mg Pantoprazole Sodium (Protonix Iv) 40 mg IVPUSH BID [facility] Last Admin: 01/18/19 21:39 Dose: 40 mg Polyethylene Glycol (Miralax (For Daily Use) -) 17 gm PO DAILY [facility] Last Admin: 01/18/19 10:13 Dose: Not Given Warfarin Sodium (Coumadin -) 5 mg PO DAILY@1800 [facility] Last Admin: 01/18/19 17:08 Dose: 5 mg Laboratory Results - last 24 hr 01/18/19 01/18/19 01/18/19 06:38 06:38 06:38 WBC 11.0 H RBC 2.66 L Hgb 8.2 L Hct 23.9 L MCV 89.9 MCH 31.0 MCHC 34.5 RDW 18.2 H Plt Count 545 H MPV 8.0 Absolute Neuts (auto) 7.7 Neutrophils % 69.8 Lymphocytes % 24.1 D Monocytes % 4.9 Eosinophils % 0.8 D Basophils % 0.4 Nucleated RBC % 0 PT with INR 13.40 H INR 1.13 H PTT (Actin FS) Sodium 140 Potassium 3.6 Chloride 102 Carbon Dioxide 30 Anion Gap 7 L BUN 35.8 H Creatinine 0.9 Est GFR (CKD-EPI)AfAm 68.05 Est GFR (CKD-EPI)NonAf 58.71 Random Glucose 97 Calcium 8.3 L Phosphorus 3.6 Magnesium 2.0 Stool Occult Blood 01/18/19 01/18/19 01/18/19 06:38 09:45 16:50 WBC RBC Hgb Hct MCV MCH MCHC RDW Plt Count MPV Absolute Neuts (auto) Neutrophils % Lymphocytes % Monocytes % Eosinophils % Basophils % Nucleated RBC % PT with INR INR PTT (Actin FS) 95.9 H 51.3 H Sodium Potassium Chloride Carbon Dioxide Anion Gap BUN Creatinine Est GFR (CKD-EPI)AfAm Est GFR (CKD-EPI)NonAf Random Glucose Calcium Phosphorus Magnesium Stool Occult Blood Negative Duplex LE results noted ASSESSMENT AND PLAN: 83 yof with PMHx of Scleroderma, PAF(not on AC but on plavix), Raynaud's phenomenon, ILD on imaging 2012, Chronic hyponatremia/SIADH, HTN, HLD, OA, recurrent stasis ulcer RLE since 02/2018 followed at wound care, recent admissions to [facility] in 09/2018 with cellulitis/HCAP, then 11/2018 with weakness suspected from hypovolumia/steroid induced myopathy, readmitted with near syncope after straining on toilet, found pos FOBT, S/p EGD with severe esophagitis, prolonged hospital course complicated by hypoxic respiratory failure/CHF/worsening anemia requiring PRBC/Afib with RVR/NSTEMI/RLE DVT. 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 Discuss with cardiology to transition to lovenox Cardiology input noted. Metoprolol/lasix as tolerated, monitor volume status. Defer additional cardiac testing to cardiology. GI input noted, continue PPI. Patient refused colonosocpy. Monitor h/h on Ac, stable currently ID input noted, off abx, stable. d/c wilson, voiding trial. DVTPPX on heparin drip Dispo to SNF in 24 hours on lovenox/coumadin bridging, pending cardiology input if no concerns. Plan discussed with patient and nursing in detail, all questions answered.
[2019-01-19 07:40] LABS: BLOOD UREA NITROGEN 37.9 mg/dL (7-18); CALCIUM 8.2 mg/dL (8.5-10.1); MAGNESIUM 1.9 mg/dL (1.8-2.4); PHOSPHOROUS 3.7 mg/dL (2.5-4.9); POTASSIUM 3.7 mmol/L (3.5-5.1)
--- NOTE | 2019-01-19 08:37 | PN ---
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 She notes her nurse has noticed her stool has been black for the past week, which she believes is related to taking iron daily. Today, patient notes she began feeling lightheaded , "like she was going to pass out," upon getting up and trying to go to the bathroom 2.5 hours ago (she ambulates with a walker at baseline). She reports immediately sitting down as she thought she was going to fall and her symptoms self-resolved after 15 minutes. As per patients daughter, she notes the patient has had symptoms similar to this before when she has had an UTI. Patient endorses mild chills, diaphoresis, and generalized weakness while in the ED. She is currently on a tapered dose of Prednisone for her Raynaud's but denies currently being on antibiotics for last UTI. Pt denies any dysarthria, headache, neck pain, diplopia, numbness/tingling/weakness, cp, back pain. The patient denies shortness of breath, and headache. Denies fever, nausea, vomit, diarrhea and constipation. Denies dysuria, frequency, urgency and hematuria. Allergies: Aspirin, cephalexin, ciprofloxacin, penicillins, quinolones Past surgical history: appendectomy, abdominal surgery, orthopedic surgery Social history: No reported PCP: Dr. Enmanuel Girard Hospital course ; 83yo female with h/o Scleroderma on chronic prednisone, HTN, hyperlipidemia, hyponatremia who was admitted for near syncope. Treated for dehydration with IVF. Was to be discharged last night, had a MRI done with ativan given. This AM, somnolent, lethargic but arousable and increasing shortness of breath. CXR today suggestive of pulmonary edema and bloodwork showing dropping H/H, transfered to the ICU for closer monitoring. - Current Medication List Current Medications: Active Medications Amino Acids (Prosource No Carb Liquid Pkt) 30 ml PO BID@0800,1730 [facility] Last Admin: 01/18/19 17:08 Dose: 30 ml Atorvastatin Calcium (Lipitor -) 20 mg PO HS [facility] Last Admin: 01/18/19 21:39 Dose: 20 mg Furosemide (Lasix -) 40 mg PO BID@0600,1400 [facility] Last Admin: 01/19/19 06:11 Dose: 40 mg Heparin Sodium (Porcine) (Heparin -) 1,000 unit IVPUSH PRN PRN PRN Reason: Heparin Heparin Sodium (Porcine) (Heparin -) 5,000 unit IVPUSH PRN PRN PRN Reason: Heparin Heparin Sodium (Porcine) 25, (000 unit/ Sodium Chloride) 500 mls @ 16 mls/hr IV TITR [facility]; Protocol Last Admin: 01/19/19 03:03 Dose: 900 unit/hr, 18 mls/hr Lactulose (Cephulac (Oral Use)) 20 gm PO TID PRN PRN Reason: CONSTIPATION Metoprolol Tartrate (Lopressor -) 50 mg PO BID [facility] Last Admin: 01/18/19 21:39 Dose: 50 mg Pantoprazole Sodium (Protonix Iv) 40 mg IVPUSH BID [facility] Last Admin: 01/18/19 21:39 Dose: 40 mg Polyethylene Glycol (Miralax (For Daily Use) -) 17 gm PO DAILY [facility] Last Admin: 01/18/19 10:13 Dose: Not Given Warfarin Sodium (Coumadin -) 5 mg PO DAILY@1800 [facility] Last Admin: 01/18/19 17:08 Dose: 5 mg - Objective Vital Signs: Vital Signs Temperature 98.4 F 01/19/19 06:00 Pulse Rate 94 H 01/19/19 06:00 Respiratory Rate 20 01/19/19 06:00 Blood Pressure 132/61 01/19/19 06:00 O2 Sat by Pulse Oximetry (%) 96 01/18/19 09:00 Eyes: Yes: WNL, Conjunctiva Clear, EOM Intact HENT: Yes: WNL, Atraumatic, Normocephalic Neck: Yes: WNL, Supple, Trachea Midline Cardiovascular: Yes: Pulse Irregular, S1, S2 Respiratory: Yes: Diminished Gastrointestinal: Yes: WNL, Normal Bowel Sounds Genitourinary: Yes: WNL Musculoskeletal: Yes: WNL Extremities: Yes: WNL Edema: No Integumentary: Yes: WNL Neurological: Yes: WNL, Alert, Oriented ...Motor Strength: WNL Psychiatric: Yes: WNL Labs: CBC, BMP 01/18/19 06:38 01/19/19 06:15 INR, PTT INR 1.27 (0.83-1.09) H 01/19/19 06:15 Assessment/Plan 1. Right popliteal DVT 2. Atrial fibrillation with variable HR - persistent 3. Acute on chronic LV diastolic failure 4. Scleroderma with CREST syndrome 5. Raynauds 6. MGUS 7. HTN 8. Hypercholesterolemia 9. Anemia 10. Elevated troponin suggests demand ischemia vs. NSTEMI PLAN: 1. Continue Metoprolol 50 mg BID for rate control 2. Continue Lipitor 3. Diuretics - currently on Lasix 80 mg IV daily. Monitor renal function and electrolytes 4. Follow CBC 5. Heparin gtt and Coumadin dosing (INR 2-3)
--- NOTE | 2019-01-19 09:12 | PN ---
Physical Exam: SUBJECTIVE: Patient seen and examined Patient resting in bed nad. afebrile hemodynamically stable, AF rate controlled controlled. feels much better, on 4l ns. walked around the room with pt. still has wilson OBJECTIVE: Vital Signs Period Temp Pulse Resp BP Sys/Stewart Pulse Ox Last 24 Hr 97.8 F-98.7 F 86-110 20-20 102-137/52-76 GENERAL: The patient is awake, alert, and fully oriented, in no acute distress. HEAD: Normal with no signs of trauma. EYES: PERRL, extraocular movements intact, sclera anicteric, conjunctiva clear. No ptosis. ENT: moist mucous membranes. NECK: supple. LUNGS: cta b/l HEART: irregular, s1s2, regular rate ABDOMEN: Soft, nontender, nondistended, normoactive bowel sounds EXTREMITIES: 2+ pulses, warm, well-perfused, no edema. L heel stage 1 pressure ulcer NEUROLOGICAL: Cranial nerves II through XII grossly intact. Normal speech, gait not observed. RLE + cord and tenderness in calf PSYCH: Normal mood, normal affect. SKIN: Warm, dry Laboratory Results - last 24 hr 01/18/19 01/18/19 01/18/19 06:38 09:45 16:50 PT with INR INR PTT (Actin FS) 95.9 H 51.3 H Sodium Potassium Chloride Carbon Dioxide Anion Gap BUN Creatinine Est GFR (CKD-EPI)AfAm Est GFR (CKD-EPI)NonAf Random Glucose Calcium Phosphorus Magnesium Stool Occult Blood Negative 01/19/19 01/19/19 06:15 06:15 PT with INR 15.00 H INR 1.27 H PTT (Actin FS) Sodium 141 Potassium 3.7 Chloride 103 Carbon Dioxide 31 Anion Gap 7 L BUN 37.9 H Creatinine 1.0 Est GFR (CKD-EPI)AfAm 59.91 Est GFR (CKD-EPI)NonAf 51.69 Random Glucose 99 Calcium 8.2 L Phosphorus 3.7 Magnesium 1.9 Stool Occult Blood Active Medications Generic Name Dose Route Start Last Admin Trade Name Freq PRN Reason Stop Dose Admin Amino Acids 30 ml 01/05/19 17:30 01/18/19 17:08 Prosource No Carb Liquid Pkt PO 30 ml BID@0800,1730 [facility] Administration Atorvastatin Calcium 20 mg 01/05/19 22:00 01/18/19 21:39 Lipitor - PO 20 mg HS [facility] Administration Furosemide 40 mg 01/19/19 06:00 01/19/19 06:11 Lasix - PO 40 mg BID@0600,1400 [facility] Administration Heparin Sodium (Porcine) 1,000 unit 01/18/19 03:14 Heparin - IVPUSH PRN PRN Heparin Heparin Sodium (Porcine) 5,000 unit 01/18/19 03:14 Heparin - IVPUSH PRN PRN Heparin Heparin Sodium (Porcine) 25, 500 mls @ 16 mls/hr 01/18/19 03:15 01/19/19 03: 03 000 unit/ Sodium Chloride IV 900 unit/hr TITR [facility] 18 mls/hr Administration Protocol 800 UNIT/HR Lactulose 20 gm 01/08/19 17:17 Cephulac (Oral Use) PO TID PRN CONSTIPATION Metoprolol Tartrate 50 mg 01/15/19 22:00 01/18/19 21:39 Lopressor - PO 50 mg BID [facility] Administration Pantoprazole Sodium 40 mg 01/05/19 22:00 01/18/19 21:39 Protonix Iv IVPUSH 40 mg BID [facility] Administration Polyethylene Glycol 17 gm 01/07/19 13:00 01/18/19 10:13 Miralax (For Daily Use) - PO Not Given DAILY [facility] Warfarin Sodium 5 mg 01/18/19 10:23 01/18/19 17:08 Coumadin - PO 5 mg DAILY@1800 [facility] Administration ASSESSMENT/PLAN: This is an 83 yo F with PMH of hyponatremia with syncope, htn, hld, Raynaud's, Scleroderma, bibems due to near syncope. Patient was sitting on the toilet earlier today, not straining, not actively passing urine or stool when she suddenly felt very dizzy, denies associated flushing, palpitations, cp, nausea. New AF RVR Acute HFPEF exacerbation DVT of RLE L heel stage 1 pressure ulcer urinary retention Troponemia possible nstemi resolved Acute hypoxic respiratory failure rsolved GIB w acute blood loss anemia resolved Severe distal esophagitis near syncope R thumb calcinosis normocytic anemia Raynauds Scleroderma severe protein calorie malnutrition -rate controlled with lopressor to 50 bid. bridging hep gtt to coum; inr 1.27 today on coum 5 d since yesterday. Find out from cardio if its ok to place on Familia instead -respiratory status improvd on lasix to 40 mg d iv bid; tolerating 4l NC -BiPAP HS -af was probably present in the past paroxysmally since the L atrium severely dilated on TTE -cardio consult appreciated -s/p EGD no occult bleeding seen -hemodynamically stable. -void check today -elevate L heel -plan rehab Problem List - Problems (1) Finger lesion Code(s): L98.9 - DISORDER OF THE SKIN AND SUBCUTANEOUS TISSUE, UNSPECIFIED (2) Near syncope Code(s): R55 - SYNCOPE AND COLLAPSE (3) Raynauds disease Code(s): I73.00 - RAYNAUD'S SYNDROME WITHOUT GANGRENE (4) Scleroderma Code(s): M34.9 - SYSTEMIC SCLEROSIS, UNSPECIFIED (5) HLD (hyperlipidemia) Code(s): E78.5 - HYPERLIPIDEMIA, UNSPECIFIED Qualifiers: Hyperlipidemia type: pure hypercholesterolemia Qualified Code(s): E78.00 - Pure hypercholesterolemia, unspecified; E78.0 - Pure hypercholesterolemia (6) HTN (hypertension) Code(s): I10 - ESSENTIAL (PRIMARY) HYPERTENSION Qualifiers: Hypertension type: essential hypertension Qualified Code(s): I10 - Essential (primary) hypertension (7) UTI (urinary tract infection) Code(s): N39.0 - URINARY TRACT INFECTION, SITE NOT SPECIFIED (8) Severe protein-calorie malnutrition Code(s): E43 - UNSPECIFIED SEVERE PROTEIN-CALORIE MALNUTRITION (9) Pressure ulcer of left heel, stage 1 Code(s): L89.621 - PRESSURE ULCER OF LEFT HEEL, STAGE 1 Visit type - Emergency Visit Emergency Visit: Yes ED Registration Date: 12/30/18 Care time: The patient presented to the Emergency Department on the above date and was hospitalized for further evaluation of their emergent condition. - New Patient This patient is new to me today: No - Critical Care Critical Care patient: No - Discharge Referral Referred to [facility] Med [facility] No
[2019-01-19] MEDS: METOPROLOL TARTRATE 25 MG TABLET (FP) PO SCH ×2 (10:13→21:50)
[2019-01-19] MEDS: AMINO ACIDS/PROTEIN HYDROLYS 30 ML LIQUID.PKT PO SCH ×2 (10:13→18:51)
[2019-01-19] MEDS: PANTOPRAZOLE SODIUM 40 MG VIAL IVPUSH SCH ×2 (10:14→21:50)
[2019-01-19] MEDS: POLYETHYLENE GLYCOL 3350 119 GM BTL PO SCH (10:15)
--- NOTE | 2019-01-19 10:38 | PN ---
Progress Note, Physician History of Present Illness: pulmonary alert,feeling better,less dyspneic - Current Medication List Current Medications: Active Medications Amino Acids (Prosource No Carb Liquid Pkt) 30 ml PO BID@0800,1730 [facility] Last Admin: 01/19/19 10:13 Dose: 30 ml Atorvastatin Calcium (Lipitor -) 20 mg PO HS [facility] Last Admin: 01/18/19 21:39 Dose: 20 mg Furosemide (Lasix -) 40 mg PO BID@0600,1400 [facility] Last Admin: 01/19/19 06:11 Dose: 40 mg Heparin Sodium (Porcine) (Heparin -) 1,000 unit IVPUSH PRN PRN PRN Reason: Heparin Heparin Sodium (Porcine) (Heparin -) 5,000 unit IVPUSH PRN PRN PRN Reason: Heparin Heparin Sodium (Porcine) 25, (000 unit/ Sodium Chloride) 500 mls @ 16 mls/hr IV TITR [facility]; Protocol Last Admin: 01/19/19 03:03 Dose: 900 unit/hr, 18 mls/hr Lactulose (Cephulac (Oral Use)) 20 gm PO TID PRN PRN Reason: CONSTIPATION Metoprolol Tartrate (Lopressor -) 50 mg PO BID [facility] Last Admin: 01/19/19 10:13 Dose: 50 mg Pantoprazole Sodium (Protonix Iv) 40 mg IVPUSH BID [facility] Last Admin: 01/19/19 10:14 Dose: 40 mg Polyethylene Glycol (Miralax (For Daily Use) -) 17 gm PO DAILY [facility] Last Admin: 01/19/19 10:15 Dose: 17 gm Warfarin Sodium (Coumadin -) 5 mg PO DAILY@1800 [facility] Last Admin: 01/18/19 17:08 Dose: 5 mg - Objective Vital Signs: Vital Signs Temperature 98.4 F 01/19/19 06:00 Pulse Rate 94 H 01/19/19 06:00 Respiratory Rate 20 01/19/19 06:00 Blood Pressure 132/61 01/19/19 06:00 O2 Sat by Pulse Oximetry (%) 96 01/18/19 09:00 Constitutional: Yes: Calm, Thin Eyes: Yes: WNL HENT: Yes: WNL Neck: Yes: WNL Cardiovascular: Yes: Pulse Irregular, S1, S2 Respiratory: Yes: Rales (bilateral crackles) Gastrointestinal: Yes: Normal Bowel Sounds, Soft Extremities: Yes: WNL Edema: No Labs: CBC, BMP 01/19/19 06:15 INR, PTT INR 1.27 (0.83-1.09) H 01/19/19 06:15 Problem List - Problems (1) Acute on chronic diastolic CHF (congestive heart failure) Code(s): I50.33 - ACUTE ON CHRONIC DIASTOLIC (CONGESTIVE) HEART FAILURE (2) APC (atrial premature contractions) Code(s): I49.1 - ATRIAL PREMATURE DEPOLARIZATION (3) Chronic interstitial lung disease Code(s): J84.9 - INTERSTITIAL PULMONARY DISEASE, UNSPECIFIED (4) Scleroderma Code(s): M34.9 - SYSTEMIC SCLEROSIS, UNSPECIFIED (5) Atrial fibrillation Code(s): I48.91 - UNSPECIFIED ATRIAL FIBRILLATION Qualifiers: Atrial fibrillation type: chronic Qualified Code(s): I48.2 - Chronic atrial fibrillation (6) HLD (hyperlipidemia) Code(s): E78.5 - HYPERLIPIDEMIA, UNSPECIFIED Qualifiers: Hyperlipidemia type: pure hypercholesterolemia Qualified Code(s): E78.00 - Pure hypercholesterolemia, unspecified; E78.0 - Pure hypercholesterolemia (7) HTN (hypertension) Code(s): I10 - ESSENTIAL (PRIMARY) HYPERTENSION Qualifiers: Hypertension type: essential hypertension Qualified Code(s): I10 - Essential (primary) hypertension Assessment/Plan ASSESSMENT AND PLAN: Altered Mental Status likely from benzodiazepine improved Acute on Chronic Diastolic Heart Failure IMPROVING +Troponins likely Demand Ischemia Scleroderma HTN Hyperlipidemia Atrial Fibrillation - lasix - monitor urine output, creatinine - rate control as per cardiology - O2 to keep Spo2 >90% - aspiration precautions - monitor H/H - inhaled bronchodilators - DVT prophylaxis - AC DR GARDNER
[2019-01-19] MEDS ORDERED: ENOXAPARIN NA (PORCINE) 60 MG/0.6 ML DISP.SYRIN SQ SCH (17:00)
[2019-01-19] MEDS: WARFARIN NA 5 MG TABLET (UD) PO SCH (18:51)
[2019-01-19] MEDS: ENOXAPARIN NA (PORCINE) 60 MG/0.6 ML DISP.SYRIN SQ SCH (18:52)
[2019-01-19 19:40] VITALS: BMI 20.5
[2019-01-19] MEDS: ATORVASTATIN CA 20 MG TABLET (FP) PO SCH (21:50)
[2019-01-20] MEDS: FUROSEMIDE 40 MG TABLET (FP) PO SCH (06:13)
[2019-01-20] MEDS: ENOXAPARIN NA (PORCINE) 60 MG/0.6 ML DISP.SYRIN SQ SCH (06:13)
[2019-01-20 06:49] LABS: HEMOGLOBIN 9.3 GM/dL (10.7-15.3); MCHC 33.3 g/dl (32.0-36.0); MEAN CELL VOLUME 90.2 fl (80-96); MEAN PLT VOLUME 8.2 fl (7.5-11.1); PLATELET COUNT 521 K/MM3 (134-434); RBC 3.11 M/mm3 (3.60-5.2); RDW 18.5 % (11.6-15.6); WHITE BLOOD COUNT 10.7 K/mm3 (4.0-10.0)
[2019-01-20 07:07] LABS: BLOOD UREA NITROGEN 33.8 mg/dL (7-18); CALCIUM 8.9 mg/dL (8.5-10.1); MAGNESIUM 2.1 mg/dL (1.8-2.4); POTASSIUM 3.9 mmol/L (3.5-5.1)
[2019-01-20 08:53] LABS: INR 1.93 (0.83-1.09); PROTHROMBIN TIME (PATIENT) 22.9 SEC (9.7-13.0)
[2019-01-20] MEDS: PANTOPRAZOLE SODIUM 40 MG VIAL IVPUSH SCH (09:49)
[2019-01-20] MEDS: METOPROLOL TARTRATE 25 MG TABLET (FP) PO SCH (09:49)
[2019-01-20] MEDS: AMINO ACIDS/PROTEIN HYDROLYS 30 ML LIQUID.PKT PO SCH (09:49)
[2019-01-20] MEDS: POLYETHYLENE GLYCOL 3350 119 GM BTL PO SCH (09:50)
--- NOTE | 2019-01-20 10:19 | PN ---
Teaching Attending Note Name of Resident: Kamila Greenberg ATTENDING PHYSICIAN STATEMENT I saw and evaluated the patient. I reviewed the resident's note and discussed the case with the resident. I agree with the resident's findings and plan as documented with exceptions below. SUBJECTIVE: Patient seen and examined. feeling better, no new complaints. OBJECTIVE: Vital Signs Period Temp Pulse Resp BP Sys/Stewart Pulse Ox Last 24 Hr 97.6 F-98.4 F 85-105 20-20 92-116/54-59 Intake & Output 01/17/19 01/18/19 01/19/19 01/20/19 23:59 23:59 23:59 23:59 Intake Total 1247 1384 330 200 Output Total 1999 1900 750 Balance -753 -516 330 -550 Weight 125 lb 9.6 oz 126 lb 12.8 oz 125 lb 3.2 oz 114 lb general: sitting in bed in no acute distress Chest: improved basilar rales, no use of accessory muscles of respiration Abdomen:soft, NT ND Extremities: trace edema, chronic arthritic deformities Home Medications Medication Instructions Recorded Valsartan 320 mg PO DAILY 10/13/18 Gabapentin [Neurontin -] 100 mg PO HS capsule 10/21/18 Atorvastatin Ca [Lipitor] 20 mg PO HS 12/17/18 Bethanechol Chloride 25 mg PO TID 12/22/18 Pantoprazole Sodium [Protonix] 40 mg PO BID #28 tablet. 01/02/19 Amino Acids/Protein Hydrolys 30 ml PO BID@0800,1730 packet 01/20/19 [Prosource No Carb Liquid Pkt] Enoxaparin [Lovenox -] 55 mg SQ Q12H disp.syrin 01/20/19 Furosemide [Lasix -] 40 mg PO BID@0600,1400 #60 tablet 01/20/19 Lactulose (Oral Use) [Cephulac -] 20 gm PO TID PRN udc 01/20/19 Metoprolol Tartrate [Lopressor -] 50 mg PO BID #60 tablet 01/20/19 Polyethylene Glycol 3350 [Miralax 17 gm PO DAILY bottle 01/20/19 119 gm Btl -] Warfarin Sodium [Coumadin] 2.5 mg PO DAILY #30 tablet 01/20/19 Active Medications Amino Acids (Prosource No Carb Liquid Pkt) 30 ml PO BID@0800,1730 ALANNA Last Admin: 01/20/19 09:49 Dose: 30 ml Atorvastatin Calcium (Lipitor -) 20 mg PO HS [facility] Last Admin: 01/19/19 21:50 Dose: 20 mg Enoxaparin Sodium (Lovenox -) 55 mg SQ Q12H [facility] Last Admin: 01/20/19 06:13 Dose: 55 mg Furosemide (Lasix -) 40 mg PO BID@0600,1400 [facility] Last Admin: 01/20/19 06:13 Dose: 40 mg Lactulose (Cephulac (Oral Use)) 20 gm PO TID PRN PRN Reason: CONSTIPATION Metoprolol Tartrate (Lopressor -) 50 mg PO BID [facility] Last Admin: 01/20/19 09:49 Dose: 50 mg Pantoprazole Sodium (Protonix Iv) 40 mg IVPUSH BID [facility] Last Admin: 01/20/19 09:49 Dose: 40 mg Polyethylene Glycol (Miralax (For Daily Use) -) 17 gm PO DAILY [facility] Last Admin: 01/20/19 09:50 Dose: Not Given Laboratory Results - last 24 hr 01/19/19 01/20/19 01/20/19 13:36 06:12 06:12 WBC 10.7 H RBC 3.11 L Hgb 9.3 L Hct 28.0 L D MCV 90.2 MCH 30.0 MCHC 33.3 RDW 18.5 H Plt Count 521 H MPV 8.2 PT with INR INR PTT (Actin FS) 76.6 H 39.0 H Sodium Potassium Chloride Carbon Dioxide Anion Gap BUN Creatinine Est GFR (CKD-EPI)AfAm Est GFR (CKD-EPI)NonAf Random Glucose Calcium Phosphorus Magnesium 01/20/19 01/20/19 06:12 06:12 WBC RBC Hgb Hct MCV MCH MCHC RDW Plt Count MPV PT with INR 22.90 H INR 1.93 H PTT (Actin FS) Sodium 139 Potassium 3.9 Chloride 101 Carbon Dioxide 30 Anion Gap 8 BUN 33.8 H Creatinine 1.0 Est GFR (CKD-EPI)AfAm 59.91 Est GFR (CKD-EPI)NonAf 51.69 Random Glucose 106 Calcium 8.9 Phosphorus 4.0 Magnesium 2.1 Microbiology 01/07/19 19:00 Urine - Urine - Catheterized Urine Culture - Final NO GROWTH OBTAINED 01/02/19 04:30 Urine - Urine Clean Catch Urine Culture - Final Contaminated: Please Repeat 12/30/18 09:10 Urine - Urine Clean Catch Urine Culture - Final Contaminated: Please Repeat ASSESSMENT AND PLAN: 83 yof with PMHx of Scleroderma, PAF(not on AC but on plavix), Raynaud's phenomenon, ILD on imaging 2012, Chronic hyponatremia/SIADH, HTN, HLD, OA, recurrent stasis ulcer RLE since 02/2018 followed at wound care, recent admissions to [facility] in 09/2018 with cellulitis/HCAP, then 11/2018 with weakness suspected from hypovolumia/steroid induced myopathy, readmitted with near syncope after straining on toilet, found pos FOBT, S/p EGD with severe esophagitis, prolonged hospital course complicated by hypoxic respiratory failure/CHF/worsening anemia requiring PRBC/Afib with RVR/NSTEMI/RLE DVT. 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 INR with rapid rise, change coumadin to 2.5 mg daily, INR tomorrow at [facility]. Plan confirmed with Dr. Serrato. Defer additional outpatient cardiac testing to cardiology. GI input noted, continue PPI. Patient refused colonosocpy. Monitor h/h on Ac, stable currently ID input noted, off abx, stable. Failed voiding trial, re-insert wilson. Re-trial at SNF in 3-4 days once ambulating better. Outpatient urology follow up. Off prednisone, outpatient rheumatology follow up. DVTPPX Lovenox/coumadin bridging. Dispo d/c to SNF today with INR check tomorrow and outpatient cardiology follow up. Plan discussed with patient, nursing and social work.
[2019-01-20 10:34] VITALS: BP 90/47; PULSE 99; TEMP 97.9
--- NOTE | 2019-01-20 13:38 | DS ---
Physical Exam: SUBJECTIVE: Patient seen and examined Patient resting in bed nad. afebrile hemodynamically stable, AF rate controlled controlled. feels much better, on 4l ns. walked around the room with pt. still has wilson bc failed void trial yesterday OBJECTIVE: Vital Signs Period Temp Pulse Resp BP Sys/Stewart Pulse Ox Last 24 Hr 97.6 F-98.4 F 85-105 20-20 90-116/47-59 98 PHYSICAL EXAM GENERAL: The patient is awake, alert, and fully oriented, in no acute distress. HEAD: Normal with no signs of trauma. EYES: PERRL, extraocular movements intact, sclera anicteric, conjunctiva clear. No ptosis. ENT: moist mucous membranes. NECK: supple. LUNGS: cta b/l HEART: irregular, s1s2, regular rate ABDOMEN: Soft, nontender, nondistended, normoactive bowel sounds EXTREMITIES: 2+ pulses, warm, well-perfused, no edema. L heel stage 1 pressure ulcer NEUROLOGICAL: Cranial nerves II through XII grossly intact. Normal speech, gait not observed. RLE + cord and tenderness in calf PSYCH: Normal mood, normal affect. SKIN: Warm, dry LABS Laboratory Results - last 24 hr 01/19/19 01/20/19 01/20/19 13:36 06:12 06:12 WBC 10.7 H RBC 3.11 L Hgb 9.3 L Hct 28.0 L D MCV 90.2 MCH 30.0 MCHC 33.3 RDW 18.5 H Plt Count 521 H MPV 8.2 PT with INR INR PTT (Actin FS) 76.6 H 39.0 H Sodium Potassium Chloride Carbon Dioxide Anion Gap BUN Creatinine Est GFR (CKD-EPI)AfAm Est GFR (CKD-EPI)NonAf Random Glucose Calcium Phosphorus Magnesium 01/20/19 01/20/19 06:12 06:12 WBC RBC Hgb Hct MCV MCH MCHC RDW Plt Count MPV PT with INR 22.90 H INR 1.93 H PTT (Actin FS) Sodium 139 Potassium 3.9 Chloride 101 Carbon Dioxide 30 Anion Gap 8 BUN 33.8 H Creatinine 1.0 Est GFR (CKD-EPI)AfAm 59.91 Est GFR (CKD-EPI)NonAf 51.69 Random Glucose 106 Calcium 8.9 Phosphorus 4.0 Magnesium 2.1 HOSPITAL COURSE: Date of Admission:12/30/18 This is an 83 yo F with PMH of hyponatremia with syncope, htn, hld, Raynaud's, Scleroderma, bibems due to near syncope. Patient was sitting on the toilet earlier today, not straining, not actively passing urine or stool when she suddenly felt very dizzy, denies associated flushing, palpitations, cp, nausea. INitial syncope workup was negative and it was attributed to vasovagal syndrome , however later in the admission patient developed worsening anemia and occult + stool. her home plavix was stopped, she underwent endoscopy that did not reveal a bleed and was consistent with severe esophagitis but declined colonoscopy. She was asked to repeat endoscopy in 8-12 w. she was on ppi gtt and then ppi bid; hgb stabilized. she then suddently developed af rvr, chf.and NSTEMI. she was not a cath candidate due to recent gib but she was eventually started on hep gtt and eventually switched to lovenox with coumadin bridge to expediate discharge. incidentally she was found to also have rle dvt. while in hospital she developed urinary retention; symptomatic uti was ruled out with negative cultures. it was probably caused by lying in bed for prolonged period so she was dcd to rehab with wilson, in hopes that once she becomes ambulatory her retention would resolve. Date of Discharge: 01/20/19 Minutes to complete discharge: 35 Discharge Summary Reason For Visit: PRE SYNCOPE Condition: Stable - Instructions Diet, Activity, Other Instructions: DIAGNOSES *You were admitted with weakness and dizziness. *You had a small heart attack in the hospital. It has resolved. you are not a candidate for heart stents because of recent bleeding in your stool. Discuss further with cardiology *You developed a blood clot in your right leg due to laying in bed for many days without much moving. *The blood clot on your leg and the atrial fibrillation put your ar risk for stroke and blood clots in your lung, which is why you were started on 2 blood thinners: Lovenox that needs to be injected twice a day until oral blood thinner Coumadin is at the appropriate level in your blood. *You developed anemia and you stool test was positive for blood, you were seen by [facility] clerk and had endoscopy that showed severe esophagitis and are started on acid reflux medication. You declined colonoscopy. *You had MRI of your right thumb that showed severe osteoarthritic changes and some fluid. Our infectious disease specialist has recommended that you follow up with [facility] ([facility]) in [place] if any new concerns or absolute need for intervention noted. *you developed urinary retention that requires a wilson catheter. We hope it will resolve once your start walking around with physical therapy MEDICATIONS *Stop taking: Plavix Amlodipine. *New medications: Protonix 40 mg twice daily for 1 week then continue 40 mg PO daily till further instructed Metoprolol tartrate 50 mg twice a day Furosemide 40 mg twice a day Coumadin 2.5 mg daily Lovenox 55 mg injection twice a day till INR > 2 *Continue other medications as before. ANTICOAGULATION: Lovenox injection 55 mg twice a day and coumading PO 2.5 mg daily until INR =>2. Please check INR tomorrow. FOLLOW UP LABS: INR check tomorrow 01/21/2019. (INR range 2-3) Further coumadin dosing per doctor at rehab facility. CBC (Complete blood count) and BMP (basic metabolic panel) in 1 week. INSTRUCTIONS: Lovenox to be stopped once INR > 2 Daily weights and notify doctor if weight gain > 3 lbs in 2 days Wilson catheter for now, voiding trial in 3-4 days. If fails, will need outpatient urologist follow up. Avoid sudden positional changes. Keep head end of bed elevated. Small meals at frequent intervals. Avoid eating 2 -3 hours before going to bed. Avoid alcohol, NSAIDs such as motrin, ibuprofen etc. and minimize caffeine intake. FOLLOW UP Dr Serrato cardiology withing 1 week Primary care within [address] Hay rheumatology within [address] Hoang gastroenterology for endoscopy in 8-12 weeks Urology follow up in 1 -2 weeks if fail to void without the wilson. If you notice any new fevers, chills, worsening breathing or any new concerns, please call 911 or come to ED Referrals: Low Elam MD [Staff Physician] - Nataly Hoang DO [Staff Physician] - Tk Serrato MD [Staff Physician] - Enmanuel Girard MD [Primary Care Provider] - Disposition: [facility] - Home Medications Comprehensive Discharge Medication List: Ambulatory Orders Valsartan 320 mg PO DAILY 10/13/18 Gabapentin [Neurontin -] 100 mg PO HS capsule 10/21/18 Atorvastatin Ca [Lipitor] 20 mg PO HS 12/17/18 Bethanechol Chloride 25 mg PO TID 12/22/18 Pantoprazole Sodium [Protonix] 40 mg PO BID #28 tablet. 01/02/19 Amino Acids/Protein Hydrolys [Prosource No Carb Liquid Pkt] 30 ml PO BID@0800, 1730 packet 01/20/19 Enoxaparin [Lovenox -] 55 mg SQ Q12H disp.syrin 01/20/19 Furosemide [Lasix -] 40 mg PO BID@0600,1400 #60 tablet 01/20/19 Lactulose (Oral Use) [Cephulac -] 20 gm PO TID PRN udc 01/20/19 Metoprolol Tartrate [Lopressor -] 50 mg PO BID #60 tablet 01/20/19 Polyethylene Glycol 3350 [Miralax 119 gm Btl -] 17 gm PO DAILY bottle 01/20/19 Warfarin Sodium [Coumadin] 2.5 mg PO DAILY #30 tablet 01/20/19 Problem List - Problems (1) Finger lesion Code(s): L98.9 - DISORDER OF THE SKIN AND SUBCUTANEOUS TISSUE, UNSPECIFIED (2) Near syncope Code(s): R55 - SYNCOPE AND COLLAPSE (3) Raynauds disease Code(s): I73.00 - RAYNAUD'S SYNDROME WITHOUT GANGRENE (4) Scleroderma Code(s): M34.9 - SYSTEMIC SCLEROSIS, UNSPECIFIED (5) HLD (hyperlipidemia) Code(s): E78.5 - HYPERLIPIDEMIA, UNSPECIFIED Qualifiers: Hyperlipidemia type: pure hypercholesterolemia Qualified Code(s): E78.00 - Pure hypercholesterolemia, unspecified; E78.0 - Pure hypercholesterolemia (6) HTN (hypertension) Code(s): I10 - ESSENTIAL (PRIMARY) HYPERTENSION Qualifiers: Hypertension type: essential hypertension Qualified Code(s): I10 - Essential (primary) hypertension (7) UTI (urinary tract infection) Code(s): N39.0 - URINARY TRACT INFECTION, SITE NOT SPECIFIED (8) Severe protein-calorie malnutrition Code(s): E43 - UNSPECIFIED SEVERE PROTEIN-CALORIE MALNUTRITION (9) Pressure ulcer of left heel, stage 1 Code(s): L89.621 - PRESSURE ULCER OF LEFT HEEL, STAGE 1 This patient is new to me today: No Emergency Visit: Yes ED Registration Date: 12/30/18 Care time: The patient presented to the Emergency Department on the above date and was hospitalized for further evaluation of their emergent condition. Critical Care patient: No - Discharge Referral Referred to [facility] No
== END 2019-01-20 13:28 | DRG 377 ==
LOC: JER 13:36 → JERBED 16:55 → J4S 21:17 → OBSVTOIN 12-30 15:03 → JICU 01-03 13:27 → J4W 01-05 19:12
PROVIDERS: ADMIT Internal Medicine; ATTEND Hospitalist
PROC: 0DJ08ZZ Inspection of Upper Intestinal Tract, Via Natural or Artificial Opening Endoscopic (ICD-10-PCS; principal; 2018-12-31 12:00)
PROC: 30233N1 Transfusion of Nonautologous Red Blood Cells into Peripheral Vein, Percutaneous Approach (ICD-10-PCS; 2019-01-03)
DX: K92.2 Gastrointestinal hemorrhage, unspecified (principal); E43 Unspecified severe protein-calorie malnutrition; J96.01 Acute respiratory failure with hypoxia; G92 Toxic encephalopathy; I21.4 Non-ST elevation (NSTEMI) myocardial infarction; I50.33 Acute on chronic diastolic (congestive) heart failure; K22.10 Ulcer of esophagus without bleeding; N39.0 Urinary tract infection, site not specified; G72.0 Drug-induced myopathy; I24.8 Other forms of acute ischemic heart disease; J84.9 Interstitial pulmonary disease, unspecified; N17.9 Acute kidney failure, unspecified; D62 Acute posthemorrhagic anemia; R55 Syncope and collapse; E78.5 Hyperlipidemia, unspecified; I10 Essential (primary) hypertension; M34.9 Systemic sclerosis, unspecified; I48.2 Chronic atrial fibrillation; E83.42 Hypomagnesemia; R33.9 Retention of urine, unspecified; E86.0 Dehydration; K44.9 Diaphragmatic hernia without obstruction or gangrene
CPT/HCPCS: 36415; 36430; 36511; 36600; 70450-TC; 71045-TC-FY; 73140-TC-RT-FY; 73220-TC; 80048; 80053; 81003; 82272; 82550; 82607; 82728; 82746; 82803; 83010; 83540; 83550; 83735; 83880; 84100; 84439; 84443; 84466; 84484; 85025; 85027; 85044; 85610; 85651; 85730; 86140; 86850; 86900; 86901; 86922; 87086; 93005; 93010; 93306-TC; 93880-TC; 93971-TC; 94640; 97116-GP; 97161-GP; 99285-25; A9579; G0378; J1644; J1756; J7030; P9038; P9058